=== PATIENT | male | born 1935 | race Caucasian/White ===

== ENCOUNTER 2018-02-25 08:35 | Inpatient (IN) | payer MEDICARE, SELFPAY ==
[2018-02-25] VITALS (17 sets, daily range): BP systolic 126–199; BP diastolic 63–89; PULSE 18–87; RESP 16–93; TEMP 36.6–37.2; O2SAT 93–98; BMI 29.5; BMI 27.8
--- NOTE | 2018-02-25 08:49 | CT_ITS ---
STUDY: CT BRAIN WITHOUT CONTRAST REASON FOR EXAM: Male, 82 years old. Left facial droop. Slurred speech. Left-sided weakness. RADIATION DOSAGE (If Supplied By Facility): CTDIvol = ( 44.99 ) mGy, DLP = ( 745.49 ) mGycm TECHNIQUE: Transaxial CT imaging of the brain was performed without administration of intravenous contrast material. Individualized dose optimization techniques were used for this CT. COMPARISON: None. FINDINGS: Normal soft tissue structures. Normal calvarium. There is mild cerebral atrophy with widening of the extra-axial spaces and ventricular dilatation. Normal white matter tracts of the cerebral hemispheres. There are small punctate calcifications of the basal ganglia which are seen in the aging brain as a normal variant. Normal brainstem. Normal cerebellum. There is no intracranial hemorrhage. There are no findings of an acute ischemic infarction. Mucosal thickening of the right maxillary sinus. CT/Brain/Head without Contrast IMPRESSION: Chronic involutional changes of the brain. N.B. : The above information has been verbally conveyed by Jalen Rodriguez MD to Mark Anthony Gambino on 02/25/2018 09:03:51 (ET). Electronically Signed: Jalen Rodriguez MD at 9:04 EDT Tel [phone], Service support ,
--- NOTE | 2018-02-25 08:49 | RAD_ITS ---
STUDY: X-RAY CHEST REASON FOR EXAM: Male, 82 years old. CVA. Left facial droop. Slurred speech. TECHNIQUE: Single AP portable view of the chest. COMPARISON: Comparison is made with prior study dated January 14, 2015. FINDINGS: EKG electrodes are seen. The lungs are clear and expanded. There is no demonstrated pleural abnormality. There is mild cardiac enlargement. Normal mediastinum and binu. Normal visualized pulmonary arteries. There is atherosclerotic calcification of the aortic arch with tortuosity. There are diffuse degenerative changes of the visualized thoracic spine. Normal visualized ribs, clavicles, and shoulders. There is no demonstrated abnormality of the visualized soft tissue structures of the upper abdomen. RAD/Chest 1 View IMPRESSION: Mild cardiomegaly. The lungs are clear. Electronically Signed: Jalen Rodriguez MD at 9:12 EDT Tel [phone], Service support ,
--- NOTE | 2018-02-25 08:49 | CT_ITS ---
STUDY: CTA OF THE BRAIN REASON FOR EXAM: Male, 82 years old. Slurred speech. Left-sided weakness. RADIATION DOSAGE (If Supplied By Facility): CTDIvol = ( 21.96 ) mGy, DLP = ( 751.91 ) mGycm TECHNIQUE: CT angiography was performed with a multi-detector CT scanner. Data acquisition was obtained from the skull base through the vertex following intravenous administration of 100 ml of Isovue-370. MIP images were reconstructed from the axial data set. Post-processing of the angiographic images was performed, with multiplanar reformation and 3D reconstruction. Individualized dose optimization techniques were used for this CT. COMPARISON: None. FINDINGS: Normal bilateral petrous carotid arteries. There is calcified plaque formation of the right cavernous carotid artery, without a cross-sectional luminal stenosis. There is calcified plaque formation of the left cavernous carotid artery, without a cross-sectional luminal stenosis. Normal right A1 segments of the anterior cerebral artery. Normal left A1 segments of the anterior cerebral artery. Normal intact anterior communicating artery (ACOM). Normal bilateral A2 segments of the anterior cerebral arteries. There is nonvisualization of the M2 segment of the right cerebral artery. Thrombus should be ruled out. Normal left M1 and M2 segments of the middle cerebral arteries, with a normal M1 bifurcation. There is a persistent origin of the right posterior cerebral artery with absence of the posterior communicating artery (PCOM). Normal left posterior communicating artery (PCOM). Normal bilateral vertebral arteries. Normal basilar artery with a normal basilar bifurcation. The visualized bilateral superior cerebellar (SCA) arteries are normal. Normal bilateral P1, P2 and visualized P3 segments of the posterior cerebral arteries. There is no demonstrated aneurysm of the [place]. There is no demonstrated abnormality of the visualized brain. CT/CTA Head W/WO Contrast IMPRESSION: Nonvisualization of the M2 segment of the right middle cerebral artery. Occlusion should be ruled out. Electronically Signed: Jalen Rodriguez MD at 9:33 EDT Tel [phone], Service support ,
--- NOTE | 2018-02-25 08:49 | EKG12_ITS ---
Test Reason : STROKE Blood Pressure : / mmHG Vent. Rate : 068 BPM Atrial Rate : 068 BPM P-R Int : 198 ms QRS Dur : 082 ms QT Int : 424 ms P-R-T Axes : 010 -02 052 degrees QTc Int : 450 ms Normal sinus rhythm Inferior infarct , age undetermined Abnormal ECG Confirmed by BERNABE BRAUN, TONYA ([id number]), dictionary editor ALEAH LEUNG ([id number]) on 02/26/2018 2:43:40 PM Referred By: MARILYNN Confirmed By:TONYA KIDD MD
--- NOTE | 2018-02-25 08:49 | CT_ITS ---
STUDY: CTA NECK WITH CONTRAST REASON FOR EXAM: Male, 82 years old. CVA. RADIATION DOSAGE (If Supplied By Facility): CTDIvol = ( 21.96 ) mGy, DLP = ( 751.91 ) mGycm TECHNIQUE: CT angiography with multi-detector data acquisition was performed from the aortic arch to the skull base following intravenous administration of 100CC ml of Isovue 370 contrast. MIP images were reconstructed from the axial data set. Post-processing of the angiographic images was performed, with multiplanar reformation and 3D reconstruction. Individualized dose optimization techniques were used for this CT. COMPARISON: None. FINDINGS: AORTIC ARCH: There is atherosclerotic calcific plaque formation of the aortic arch and great vessels arising from the aortic arch, without a hemodynamically significant stenosis. There is a bovine origin of the great vessels with a common origin of the brachiocephalic and left common carotid artery. Normal origin of the left subclavian artery. RIGHT CAROTID ARTERIES: Normal right common carotid artery (CCA). Normal right common carotid bulb. There is moderate atherosclerotic plaque formation of the origin of the right internal carotid artery with an estimated stenosis of 50-69% stenosis. Normal visualized cervical portion of the right internal carotid artery. Normal origin of the right external carotid artery (ECA). LEFT CAROTID ARTERIES: Normal left common carotid artery (CCA). Normal left common carotid bulb. Surgical clips are seen in the region of the left carotid bifurcation. This most likely secondary to prior endarterectomy. Normal visualized cervical portion of the left internal carotid artery. Normal origin of the left external carotid artery (ECA). VERTEBRAL ARTERIES: Normal bilateral vertebral arteries. Multilevel degenerative changes of the cervical spine. CT/CTA Neck W/WO Contrast IMPRESSION: Atherosclerotic plaque at the origin of the right internal carotid artery causing between 50 and 69% stenosis. Findings suggestive of a prior endarterectomy of the left internal carotid artery. Electronically Signed: Jalen Rodriguez MD at 9:28 EDT Tel [phone], Service support ,
[2018-02-25 09:16] LABS: Absolute Lymphocyte Count 0.71 X10^3/ul (0.83-4.51); Absolute Neutrophil Count 7.3 X10^3/uL (2.0-7.7); Basophil# 0.01 X10^3/uL; Basophil% 0.1 % (0-1); Eosinophil# 0.47 X10^3/uL; Hematocrit 42.5 % (40-54); Hemoglobin 14.1 g/dl (13.0-16.5); Lymphocyte # 0.71 X10^3/ul (4.0); Lymphocyte % 7.5 % (19-41); Mean Corp Hgb Conc 33.2 g/gl (32-36); Mean Corpuscular Hgb 33.8 pg (27.0-32.0); Mean Corpuscular Volume 101.9 fL (80-94); Monocyte# 0.93 X10^3/uL; Monocyte% 9.8 % (0-10); Neutrophil # 7.33 X10^3/uL (2.7-7.7); Neutrophil % 77.4 % (47-70); Platelet Count 206 K/mm3 (150-450); RBC Distribution Width CV 14.3 % (11.6-14.6); RBC Distribution Width SD 52.5 fl (35.1-43.9); Red Blood Count 4.17 M/mm3 (4.6-6.2); White Blood Count 9.5 K/mm3 (4.4-11.0)
[2018-02-25 09:18] LABS: POSITIVE COUNT NO; POSITIVE DIFFERENTIAL NO; POSITIVE MORPHOLOGY NO
[2018-02-25 09:19] LABS: International Normalized Ratio 1.1; Prothrombin Time (Protime)PT. 14.1 SECONDS (11.7-14.9)
[2018-02-25 09:20] LABS: Partial Thromboplast Time 28.1 Seconds (24.1-36.2)
[2018-02-25 09:30] LABS: Anion Gap 8 (5-15); BUN 20 mg/dL (7-18); BUN/Creat Ratio 16.5 RATIO (10-20); Calcium,Total 9.3 mg/dL (8.5-10.1); Chloride 107 mmol/L (98-107); Creatinine, Serum 1.21 mg/dL (0.70-1.30); EST Glomerular Filtration Rate 61 mL/min (>60); Est Glom Filt Rate - Afr Amer 74 mL/min (>60); Estimated Creatinine Clearance 44.75 ml/min; Glucose 122 mg/dL (74-106); Potassium 3.7 mmol/L (3.5-5.1); Sodium Level 142 mmol/L (136-145)
[2018-02-25 09:31] LABS: Bedside Glucose 114 mg/dL (70-110)
[2018-02-25 09:34] LABS: CPK Total, Creatine Kinase 371 U/L (39-308)
--- NOTE | 2018-02-25 09:51 | NURSING ---
DR ORTIZ FOR DR SUBRAMANIAN
--- NOTE | 2018-02-25 10:03 | ED.DCSUM_ITS ---
- ER Visit Summary Date of Service: 02/25/18 Chief Complaint: Weakness and fall History of Present Illness: The patient is a 57 M who presents with weakness and a fall. He was last seen normal about 11:30 PM yesterday. He fell out of bed. He believes this was about at midnight. He was found by family member this morning. He had been unable to get up on his own. He believes that he was down for several hours. He denies any injuries or pain. EMS noted left-sided weakness and slurred speech. The patient otherwise denies recent illness such as fever chest pain shortness of breath nausea vomiting diarrhea or headache. No prior history of stroke. He does have a history of prior carotid endarter ectomy. Physical Examination: Afebrile vitals unremarkable There is some contusion and abrasion to the left forehead and left upper lateral arm but no tenderness Initial NIH stroke scale is 6, 2 for facial palsy, 2 for left arm, 1 for left leg, 1 for dysarthria Heart is regular rate and rhythm Lungs are clear Abdomen soft Alert and oriented to month and day, person, place. Normal sensation No extremity tenderness no pain with passive range of motion Test Results: EKG shows sinus rhythm at a rate of 68. CBC BMP coagulation studies unremarkable. Troponin 0.046. CPK 371. CT of the head showed chronic changes. CTA of the head neck shows nonvisualization of the M2 right MCA. These images were reviewed by Dr. Hernandez, the neurologist who noted M1 occlusion with early ischemic changes. Chest x-ray shows mild cardiomegaly, no acute process. Emergency Department Course and Treatment: Stroke team was activated prehospital based on the patient's positive [place] stroke scale. Dr. Hernandez did evaluate the patient here in the emergency department. He is not a TPA candidate. He also spoke to [facility] and he was not a candidate for further intervention so will be kept here for further evaluation and management. Patient discussed with the hospitalist and admitted. Treatment Plan: [] Disposition: Admit Impression: Stroke This note was generated with [employer] dictation software. It may contain incorrect words, spelling, and punctuation that were not noted in review of the chart prior to signing ED Disposition - Plan for ED Patient: Chief Complaint: Neuro S/Sx Referrals: Derek Singh Chi, MD [Primary Care Provider] -
--- NOTE | 2018-02-25 10:08 | NURSING ---
122 CVA MARIA ISABELTSONIS
--- NOTE | 2018-02-25 10:36 | MRI_ITS ---
STUDY: MRI BRAIN WITHOUT CONTRAST REASON FOR EXAM: Male, 82 years old. cva, L facial droop, L arm weakness. TECHNIQUE: Standardized multiplanar fat and water weighted pulse sequences were obtained. COMPARISON: None. FINDINGS: There is mild cerebral atrophy with widening of the extra-axial spaces and ventricular dilatation. There are a limited number of small white matter hyperintensities, distributed throughout the deep white matter tracts of the cerebral hemispheres, consistent with mild chronic white matter ischemic changes. There is restricted diffusion involving the right insula and rodríguez radiata with drop of signal on ADC map, consistent with acute infarction. Normal bilateral basal ganglia. Normal thalami. There is no extra-axial fluid accumulation. Normal flow voids within the major intracranial circulation suggesting patency by spin echo criteria. Normal sella turcica, pituitary gland, infundibular stalk, optic chiasm and hypothalamus. Normal tectal plate and pineal gland. Normal midbrain, jorge and medulla. Normal cerebellum. Normal basal cisterns. There is mild paranasal sinus disease MRI/Brain without Contrast IMPRESSION: Acute right MCA infarct. N.B. : The above information has been verbally conveyed by Thomas Dougherty MD to Nurse Parul Covarrubias RN, on 02/25/2018 14:14:29 (ET). Electronically Signed: Thomas Dougherty MD at 13:26 EDT Tel , Service support ,
--- NOTE | 2018-02-25 10:36 | ECHOD_ITS ---
Reason For Study: TIA/CVA Procedure This was a 2D Doppler, Color Flow transthoracic echocardiogram. The study was technically difficult. Due to body habitus. Exam performed portable in patient room. Left Ventricle Normal LV size. Mild concentric left ventricular hypertrophy. Left ventricular systolic function is normal. The estimated ejection fraction is 60 %. Transmitral and pulmonary venous doppler flow suggestive of impaired relaxation of left ventricle. Transmitral diastolic flow velocities suggest mild (stage 1) diastolic dysfunction (reversed pattern). No regional wall motion abnormalities noted. Right Ventricle Normal RV size. Normal systolic function. Atria The left atrium is mildly enlarged. Normal right atrium. Bubble contrast study negative for right to left interatrial shunt. Mitral Valve Normal mitral valve. Tricuspid Valve Normal tricuspid valve. Mild (1+) tricuspid valve insufficiency. Pulmonary artery systolic pressure is 30 mmHg. Aortic Valve The aortic valve is not well visualized. Pulmonic Valve Normal pulmonic valve. Great Vessels Normal aortic root. The pulmonary artery is normal size. Normal inferior vena cava. Pericardium/Pleural No pericardial effusion. Medication Performed a rapid injection of agitated mix of 9 cc saline and 1cc air to assess for atrial septal defect. MMode/2D Measurements & Calculations LVIDd: 5.1 cm IVSd: 1.3 cm Ao root diam: 3.6 cm LVIDs: 3.4 cm LVPWd: 1.2 cm LA dimension: 3.8 cm RVDd: 2.9 cm FS: 32.2 % LAV(MOD-bp): 85.3 ml LAV(MOD-bp) Indexed: 42.3 ml/m2 LA A4 area: 25.0 cm2 RA A4 area: 21.4 cm2 LAV(MOD-sp2): 79.8 ml LAV(MOD-sp4): 79.3 ml Doppler Measurements & Calculations MV E max kenan: 66.9 cm/sec Lat Peak E' Kenan: 8.3 cm/sec Med Peak E' Kenan: 6.3 cm/sec MV A max kenan: 87.5 cm/sec E/E' lat: 8.1 E/E' med: 10.6 MV E/A: 0.76 Ao V2 max: 174.1 cm/sec LV V1 max: 160.1 cm/sec PA V2 max: 89.4 cm/sec Ao max P.1 mmHg LV V1 max P.7 mmHg TR max kenan: 258.8 cm/sec TR max P.8 mmHg Interpretation Summary Normal LV size. Mild concentric left ventricular hypertrophy. Left ventricular systolic function is normal. The estimated ejection fraction is 60 %. Transmitral and pulmonary venous doppler flow suggestive of impaired relaxation of left ventricle Transmitral diastolic flow velocities suggest mild (stage 1) diastolic dysfunction (reversed pattern). Ordering Physician: Og Jones Referring Physician: Derek Singh Chi Performed By: Eveline Montaño RDCS, RVT
[2018-02-25] MEDS: 0.9% Normal Saline 1,000 ML 100 ML IV ×2 (10:58→22:16)
--- NOTE | 2018-02-25 11:04 | PCM.CONS.GEN ---
Reason for Consult Date of Consultation: 02/25/18 Reason for Consultation: Stroke team History of Present Illness: The patient is a 82 year old right-handed white male with a past medical history of hypertension, hyperlipidemia, and tobacco use, last known well at 11:30 PM last night presented to the emergency department after his family discovered that he had left-sided weakness this morning. Stroke team was called. He was outside of the window for TPA. Upon my arrival at the bedside at approximately 9 AM, his daughter was present. The patient was awake and alert and able to follow all commands and answer questions. We discussed possible transfer for neuro intervention however I discussed this with the on-call neurologist at [facility] who felt that due to his age, his NIH stroke score which at this point is 5, and proximally 10-1/2 hours since last known well he was outside of the window for any intervention. This was discussed with the family and they agree. He does not have a history of atrial fibrillation or heart disease and he is not on any anticoagulants. Denies any pain or headache. 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 (Chronic) huc ob current use of therapeutic drug (Chronic) HTN (hypertension), benign (Chronic) Medical History: Medical History (Last Reviewed 02/25/18 @ 11:10 by Timothy Hernandez MD) CAD (coronary artery disease) (Chronic) I25.10 Carotid arterial disease (Chronic) I77.9 Hyperlipidemia (Chronic) E78.5 senior living current use of therapeutic drug (Chronic) Z79.899 HTN (hypertension), benign (Chronic) I10 Carotid stenosis I65.29 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 Allergies No Known Allergies Allergy (Verified 02/25/18 08:36) Home Medications: Ambulatory Orders Medication Instructions Recorded aspirin 81 mg tablet,delayed 81 mg PO DAILY 0 Days 04/30/17 release metoprolol tartrate 50 mg tablet 50 mg PO BID #180 tab 02/11/18 simvastatin 20 mg tablet 20 mg PO QAM #90 tab 02/11/18 Surgical History: Surgical History (Last Reviewed 02/25/18 @ 11:10 by Timothy Hernandez MD) H/O carotid endarterectomy Onset Date: ~07/2010 Z98.890 History of appendectomy Z90.49 History of bilateral knee replacement Onset Date: ~2007 Z96.653 Hx of tonsillectomy Z90.89 Smoking Status: Current some day smoker Tobacco Use: Cigarettes, Cigars Alcohol: None Drugs: None - *Family History Maternal Family History: Family History (Last Reviewed 05/01/17 @ 10:05 by Shade Mcmanus MD) Other CAD (coronary artery disease) Heart disease Hypertension History Items: No pertinent history Review of Systems Constitutional: Denies: Chills, Fever, Weight Change HEENT: Denies: Head Aches, Sinus Congestion, Sinus Drainage Cardiovascular: Denies: Chest Pain, Palpitations Respiratory: Denies: Cough, Shortness of breath at rest, Sputum production Gastrointestinal: Denies: Abdominal Pain, Nausea, Vomiting Genitourinary: Denies: Dysuria Musculoskeletal: Denies: Joint Pain, Joint Tenderness Skin: Denies: Rash, Wounds Neurological: Reports: Change in Speech, Slurred speech, Focal weakness. Denies: Numbness, Tingling Psychiatric: Denies: Anxiety, Depression, Homicidal Ideations, Suicidal Ideations Hematologic/ Lymphatic: Denies: Easy Bruising, Easy Bleeding Objective: On examination he is awake, alert and oriented There is no visual field cut There is no extinction or neglect There is a mild to moderate left central 7 There is no aphasia but there is moderate dysarthria There is left arm and leg drift but he does not touch the bed. Right side is normal. Sensation is intact to double stimulation Is no ataxia out of proportion to weakness NIH stroke score is 5 - Physical Exam Vital Signs Temp Pulse Resp BP Pulse Ox 36.7 C 59 L 16 172/74 H 96 02/25/18 11:00 02/25/18 11:00 02/25/18 11:00 02/25/18 11:00 02/25/18 11:00 Oxygen Flow Rate (L/min) 2 Oxygen Delivery Method Nasal Cannula Weight: 83 kg Body Mass Index (BMI) 27.8 Finger Stick Blood Glucose 114 Laboratory Tests Past 24 Hrs 02/25/18 02/25/18 02/25/18 08:52 08:52 08:52 WBC 9.5 RBC 4.17 L Hgb 14.1 Hct 42.5 MCV 101.9 H MCH 33.8 H MCHC 33.2 RDW 14.3 RDW Differential 52.5 H Plt Count 206 MPV 10.0 Immature Gran % (Auto) 0.200 Neut % (Auto) 77.4 H Lymph % (Auto) 7.5 L [place] % (Auto) 9.8 Eos % (Auto) 5.0 Baso % (Auto) 0.1 Absolute Neuts (auto) 7.3 Absolute Lymphs (auto) 0.71 L Total Counted Not Reportable PT 14.1 INR 1.1 APTT 28.1 Sodium 142 Potassium 3.7 Chloride 107 Carbon Dioxide 27.0 Anion Gap 8 BUN 20 H Creatinine 1.21 Estim Creat Clear Calc 44.75 Est GFR (MDRD) Af Amer 74 Est GFR (MDRD) Non-Af 61 BUN/Creatinine Ratio 16.5 Glucose 122 H Calcium 9.3 Total Creatine Kinase Troponin I 0.046 H 02/25/18 08:52 WBC RBC Hgb Hct MCV MCH MCHC RDW RDW Differential Plt Count MPV Immature Gran % (Auto) Neut % (Auto) Lymph % (Auto) [place] % (Auto) Eos % (Auto) Baso % (Auto) Absolute Neuts (auto) Absolute Lymphs (auto) Total Counted PT INR APTT Sodium Potassium Chloride Carbon Dioxide Anion Gap BUN Creatinine Estim Creat Clear Calc Est GFR (MDRD) Af Amer Est GFR (MDRD) Non-Af BUN/Creatinine Ratio Glucose Calcium Total Creatine Kinase 371 H Troponin I POC Glucose 02/25/18 09:18 POC Glucose 114 H I reviewed the CT and CTA of the head and neck. There is possible early ischemic changes in her right MCA distribution and I think there is a right M1 cutoff. Assessment/Plan Acute right MCA distribution ischemic stroke. He is outside of the window for TPA and neuro intervention. This was discussed with the on-call neuro interventional list at [facility]. This is also discussed with the family and they agree to keep the patient here in [place], continue conservative treatment including the following: PT/OT/speech therapy N.p.o. until cleared by speech MRI of the brain Echocardiogram Consider rehab: Discussed with patient and family Telemetry monitoring Continue statin therapy although changes to high dose Permissive hypertension, treat systolic if over 200 Add Plavix, continue aspirin therapy
--- NOTE | 2018-02-25 11:09 | CON.PCM_ITS ---
Reason for Consult Date of Consultation: 02/25/18 Reason for Consultation: Stroke team History of Present Illness: The patient is a 82 year old right-handed white male with a past medical history of hypertension, hyperlipidemia, and tobacco use, last known well at 11:30 PM last night presented to the emergency department after his family discovered that he had left-sided weakness this morning. Stroke team was called. He was outside of the window for TPA. Upon my arrival at the bedside at approximately 9 AM, his daughter was present. The patient was awake and alert and able to follow all commands and answer questions. We discussed possible transfer for neuro intervention however I discussed this with the on-call neurologist at [facility] who felt that due to his age, his NIH stroke score which at this point is 5, and proximally 10-1/2 hours since last known well he was outside of the window for any intervention. This was discussed with the family and they agree. He does not have a history of atrial fibrillation or heart disease and he is not on any anticoagulants. Denies any pain or headache. 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) Z79.899 HTN (hypertension), benign (Chronic) I10 Carotid stenosis I65.29 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 Allergies No Known Allergies Allergy (Verified 02/25/18 08:36) Home Medications: Ambulatory Orders Medication Instructions Recorded aspirin 81 mg tablet,delayed 81 mg PO DAILY 0 Days 04/30/17 release metoprolol tartrate 50 mg tablet 50 mg PO BID #180 tab 02/11/18 simvastatin 20 mg tablet 20 mg PO QAM #90 tab 02/11/18 Surgical History: Surgical History (Last Reviewed 02/25/18 @ 11:10 by Timothy Hernandez MD) H/O carotid endarterectomy Onset Date: ~07/2010 Z98.890 History of appendectomy Z90.49 History of bilateral knee replacement Onset Date: ~2007 Z96.653 Hx of tonsillectomy Z90.89 Smoking Status: Current some day smoker Tobacco Use: Cigarettes, Cigars Alcohol: None Drugs: None - *Family History Maternal Family History: Family History (Last Reviewed 05/01/17 @ 10:05 by Shade Mcmanus MD) Other CAD (coronary artery disease) Heart disease Hypertension History Items: No pertinent history Review of Systems Constitutional: Denies: Chills, Fever, Weight Change HEENT: Denies: Head Aches, Sinus Congestion, Sinus Drainage Cardiovascular: Denies: Chest Pain, Palpitations Respiratory: Denies: Cough, Shortness of breath at rest, Sputum production Gastrointestinal: Denies: Abdominal Pain, Nausea, Vomiting Genitourinary: Denies: Dysuria Musculoskeletal: Denies: Joint Pain, Joint Tenderness Skin: Denies: Rash, Wounds Neurological: Reports: Change in Speech, Slurred speech, Focal weakness. Denies: Numbness, Tingling Psychiatric: Denies: Anxiety, Depression, Homicidal Ideations, Suicidal Ideations Hematologic/ Lymphatic: Denies: Easy Bruising, Easy Bleeding Objective: On examination he is awake, alert and oriented There is no visual field cut There is no extinction or neglect There is a mild to moderate left central 7 There is no aphasia but there is moderate dysarthria There is left arm and leg drift but he does not touch the bed. Right side is normal. Sensation is intact to double stimulation Is no ataxia out of proportion to weakness NIH stroke score is 5 - Physical Exam Vital Signs Temp Pulse Resp BP Pulse Ox 36.7 C 59 L 16 172/74 H 96 02/25/18 11:00 02/25/18 11:00 02/25/18 11:00 02/25/18 11:00 02/25/18 11:00 Oxygen Flow Rate (L/min) 2 Oxygen Delivery Method Nasal Cannula Weight: 83 kg Body Mass Index (BMI) 27.8 Finger Stick Blood Glucose 114 Laboratory Tests Past 24 Hrs 02/25/18 02/25/18 02/25/18 08:52 08:52 08:52 WBC 9.5 RBC 4.17 L Hgb 14.1 Hct 42.5 MCV 101.9 H MCH 33.8 H MCHC 33.2 RDW 14.3 RDW Differential 52.5 H Plt Count 206 MPV 10.0 Immature Gran % (Auto) 0.200 Neut % (Auto) 77.4 H Lymph % (Auto) 7.5 L [place] % (Auto) 9.8 Eos % (Auto) 5.0 Baso % (Auto) 0.1 Absolute Neuts (auto) 7.3 Absolute Lymphs (auto) 0.71 L Total Counted Not Reportable PT 14.1 INR 1.1 APTT 28.1 Sodium 142 Potassium 3.7 Chloride 107 Carbon Dioxide 27.0 Anion Gap 8 BUN 20 H Creatinine 1.21 Estim Creat Clear Calc 44.75 Est GFR (MDRD) Af Amer 74 Est GFR (MDRD) Non-Af 61 BUN/Creatinine Ratio 16.5 Glucose 122 H Calcium 9.3 Total Creatine Kinase Troponin I 0.046 H 02/25/18 08:52 WBC RBC Hgb Hct MCV MCH MCHC RDW RDW Differential Plt Count MPV Immature Gran % (Auto) Neut % (Auto) Lymph % (Auto) [place] % (Auto) Eos % (Auto) Baso % (Auto) Absolute Neuts (auto) Absolute Lymphs (auto) Total Counted PT INR APTT Sodium Potassium Chloride Carbon Dioxide Anion Gap BUN Creatinine Estim Creat Clear Calc Est GFR (MDRD) Af Amer Est GFR (MDRD) Non-Af BUN/Creatinine Ratio Glucose Calcium Total Creatine Kinase 371 H Troponin I POC Glucose 02/25/18 09:18 POC Glucose 114 [address] I reviewed the CT and CTA of the head and neck. There is possible early ischemic changes in her right MCA distribution and I think there is a right M1 cutoff. Assessment/Plan Acute right MCA distribution ischemic stroke. He is outside of the window for TPA and neuro intervention. This was discussed with the on-call neuro interventional list at [facility]. This is also discussed with the family and they agree to keep the patient here in [place], continue conservative treatment including the following: * PT/OT/speech therapy * N.p.o. until cleared by speech * MRI of the brain * Echocardiogram * Consider rehab: Discussed with patient and family * Telemetry monitoring * Continue statin therapy although changes to high dose * Permissive hypertension, treat systolic if over 200 * Add Plavix, continue aspirin therapy
[2018-02-25] MEDS: Heparin Injection (Vial) 5,000 UNIT/ML VIAL 5000 UNIT SC ×2 (13:40→22:16)
[2018-02-25] MEDS: Ketorolac 15 MG/ML Vial IV (16:10)
--- NOTE | 2018-02-25 16:48 | PCM.HP.STD ---
Problem List (1) CAD (coronary artery disease) Status: Chronic Qualifiers: Coronary Disease-Associated Artery/Lesion type: [place] artery [place] vs. transplanted heart: [place] heart Associated angina: without angina Qualified Code(s): I25.10 - Atherosclerotic heart disease of [place] coronary artery without angina pectoris; I25.10 - Atherosclerotic heart disease of [place] coronary artery without angina pectoris; I25.10 - Atherosclerotic heart disease of [place] coronary artery without angina pectoris (2) Carotid arterial disease Status: Chronic (3) Hyperlipidemia Status: Chronic Qualifiers: Hyperlipidemia type: pure hypercholesterolemia Qualified Code(s): E78.00 - Pure hypercholesterolemia, unspecified; E78.00 - Pure hypercholesterolemia, unspecified; E78.00 - Pure hypercholesterolemia, unspecified; E78.0 - Pure hypercholesterolemia (4) HTN (hypertension), benign Status: Chronic (5) CVA (cerebral vascular accident) Status: Acute History of Present Illness Date of Admission: 02/25/18 Chief Complaint: Weakness and fall The patient is a 82 year old M with a PMH as above presents after being found down by his daughter this morning. Per him and the family, he was last seen to be normal last night around 2330 when he went to bed. He states that he thinks he got up to go to the bathroom and then the next thing he knew, he was on the ground and could not get up. He denies LOC or head traum but is unsure of how long he was on the floor for. He daughter, who lives with him found him this morning when she got up to go to the bathroom. She and her tried to get him up but could not and when they noticed him slurring his speech, they decided to call EMS. on arrival to the ER, he was evaluated and found to be out of the tPA window, MRI and CTA demonstrates a right MCA territory stroke and a R ICA stenosis of 50 to 69%, his left ICA appears to have been repaired. 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) Z79.899 HTN (hypertension), benign (Chronic) I10 Carotid stenosis I65.29 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 Allergies No Known Allergies Allergy (Verified 02/25/18 08:36) Home Medications: Ambulatory Orders Medication Instructions Recorded aspirin 81 mg tablet,delayed 81 mg PO DAILY 0 Days 04/30/17 release metoprolol tartrate 50 mg tablet 50 mg PO BID #180 tab 02/11/18 simvastatin 20 mg tablet 20 mg PO QAM #90 tab 02/11/18 Surgical History: Surgical History (Last Reviewed 02/25/18 @ 11:10 by Timohty Hernandez MD) H/O carotid endarterectomy Onset Date: ~07/2010 Z98.890 History of appendectomy Z90.49 History of bilateral knee replacement Onset Date: ~2007 Z96.653 Hx of tonsillectomy Z90.89 Smoking Status: Current some day smoker Tobacco Use: Cigarettes, Cigars Alcohol: None Drugs: None - *Family History Maternal Family History: Family History (Last Reviewed 05/01/17 @ 10:05 by Shade Mcmanus MD) Other CAD (coronary artery disease) Heart disease Hypertension History Items: No pertinent history Review of Systems Constitutional: Reports: Weakness. Denies: Chills, Fever, Weight Change Eyes: Denies: Blurred vision, Double vision HEENT: Reports: Head Aches. Denies: Sinus Congestion, Sinus Drainage Cardiovascular: Denies: Chest Pain, Palpitations Respiratory: Denies: Cough, Shortness of breath at rest, Sputum production Gastrointestinal: Denies: Abdominal Pain, Nausea, Vomiting Genitourinary: Denies: Dysuria Musculoskeletal: Denies: Joint Pain, Joint Tenderness Skin: Denies: Rash, Wounds Neurological: Reports: Slurred speech, Focal weakness, Headaches. Denies: Numbness, Tingling Psychiatric: Denies: Anxiety, Depression Hematologic/ Lymphatic: Denies: Easy Bruising, Easy Bleeding VTE Information - Inpt Only VTE Present on Admission: No Patient Problems: Active and Suspected Problems (Last Reviewed 02/25/18 @ 11:10 by Timothy Hernandez MD) CVA (cerebral vascular accident) (Acute) - Physical Exam General: Alert, Oriented x3, Cooperative, No apparent distress HEENT: Atraumatic, EOMI, Normocephalic Oral: Dry Mucosa Neck: Supple, No JVD Lungs: Clear to auscultation, Normal air movement, No rhonchi, No wheeze, No rales Cardiovascular: Regular rate, Regular Rhythm, Normal S1, Normal S2, No murmurs Abdomen: Soft, Non Tender, Non-Distended, No Hepato-splenomegaly Extremities: No edema, Capillary Refill Less than 3 Seconds Skin: No rashes, No breakdown Musculoskeletal: No Tenderness to Palpation of Joints or Extremities Neurological: Deep Tendon Reflexes 2+/4 and Symmetrical, Sensory exam intact to light touch and pain, - - LUE 3/5 with slight drift, dysarthric, left facial droop, left cranial nerve 11 is out, no visual field defect Psych/Mental Status: Normal Affect, Appropriate Vital Signs Temp Pulse Resp BP Pulse Ox 98.3 F 58 L 16 126/69 H 98 02/25/18 15:00 02/25/18 15:04 02/25/18 15:00 02/25/18 15:00 02/25/18 15:00 Oxygen Flow Rate (L/min) 2 Oxygen Delivery Method Room Air Weight: 182 lb 15.739 oz Body Mass Index (BMI) 27.8 Finger Stick Blood Glucose 114 Intake and Output for Last 24 Hours 02/23/18 02/24/18 02/25/18 23:59 23:59 23:59 Intake Total 75 / 75 Balance 75 / 75 Laboratory Tests Past 24 Hrs 02/25/18 02/25/18 02/25/18 08:52 08:52 08:52 WBC 9.5 RBC 4.17 L Hgb 14.1 Hct 42.5 MCV 101.9 H MCH 33.8 H MCHC 33.2 RDW 14.3 RDW Differential 52.5 H Plt Count 206 MPV 10.0 Immature Gran % (Auto) 0.200 Neut % (Auto) 77.4 H Lymph % (Auto) 7.5 L [place] % (Auto) 9.8 Eos % (Auto) 5.0 Baso % (Auto) 0.1 Absolute Neuts (auto) 7.3 Absolute Lymphs (auto) 0.71 L Total Counted Not Reportable PT 14.1 INR 1.1 APTT 28.1 Sodium 142 Potassium 3.7 Chloride 107 Carbon Dioxide 27.0 Anion Gap 8 BUN 20 H Creatinine 1.21 Estim Creat Clear Calc 44.75 Est GFR (MDRD) Af Amer 74 Est GFR (MDRD) Non-Af 61 BUN/Creatinine Ratio 16.5 Glucose 122 H Calcium 9.3 Total Creatine Kinase Troponin I 0.046 H 02/25/18 08:52 WBC RBC Hgb Hct MCV MCH MCHC RDW RDW Differential Plt Count MPV Immature Gran % (Auto) Neut % (Auto) Lymph % (Auto) [place] % (Auto) Eos % (Auto) Baso % (Auto) Absolute Neuts (auto) Absolute Lymphs (auto) Total Counted PT INR APTT Sodium Potassium Chloride Carbon Dioxide Anion Gap BUN Creatinine Estim Creat Clear Calc Est GFR (MDRD) Af Amer Est GFR (MDRD) Non-Af BUN/Creatinine Ratio Glucose Calcium Total Creatine Kinase 371 H Troponin I POC Glucose 02/25/18 09:18 POC Glucose 114 H Assessment/Plan All Active Problems (Last Reviewed 02/25/18 @ 11:10 by Timothy Hernandez MD) CVA (cerebral vascular accident) (Acute) 1. R MCA CVA/HLD/HTN/CAD - Presenting with dysarthria, loss of L CNXI, LUE weakness - He is on aspirin, will add plavix, then will transition to plavix alone in 3 weeks - Increase statin from 20 mg to 40 mg as he is 82 yo and there is no evidence to suggest 80 mg is beneficial in people older than 75 - PT/OT and speech eval, he will need therapy after discharge - C/s to neuro, appreciate recs - echo pending - Permissive HTN, hold the metoprolol 2. rhabdomyolysis - total CK is elevated - renal function is Ok at the moment - c/w IVF hydration and monitor renal function 3. Tobacco use - discussed at length that he needs to quit DVT: Heparin/SCDs Diet: NPO Code Visit Inpatient E&M: 86937 Init Hosp L3
--- NOTE | 2018-02-25 16:53 | HP.PCM_ITS ---
Problem List (1) CAD (coronary artery disease) Status: Chronic Qualifiers: Coronary Disease-Associated Artery/Lesion type: [place] artery [place] vs. transplanted heart: [place] heart Associated angina: without angina Qualified Code(s): I25.10 - Atherosclerotic heart disease of [place] coronary artery without angina pectoris; I25.10 - Atherosclerotic heart disease of [place] coronary artery without angina pectoris; I25.10 - Atherosclerotic heart disease of [place] coronary artery without angina pectoris (2) Carotid arterial disease Status: Chronic (3) Hyperlipidemia Status: Chronic Qualifiers: Hyperlipidemia type: pure hypercholesterolemia Qualified Code(s): E78.00 - Pure hypercholesterolemia, unspecified; E78.00 - Pure hypercholesterolemia, unspecified; E78.00 - Pure hypercholesterolemia, unspecified; E78.0 - Pure hypercholesterolemia (4) HTN (hypertension), benign Status: Chronic (5) CVA (cerebral vascular accident) Status: Acute History of Present Illness Date of Admission: 02/25/18 Chief Complaint: Weakness and fall The patient is a 82 year old M with a PMH as above presents after being found down by his daughter this morning. Per him and the family, he was last seen to be normal last night around 2330 when he went to bed. He states that he thinks he got up to go to the bathroom and then the next thing he knew, he was on the ground and could not get up. He denies LOC or head traum but is unsure of how long he was on the floor for. He daughter, who lives with him found him this morning when she got up to go to the bathroom. She and her tried to get him up but could not and when they noticed him slurring his speech, they decided to call EMS. on arrival to the ER, he was evaluated and found to be out of the tPA window, MRI and CTA demonstrates a right MCA territory stroke and a R ICA stenosis of 50 to 69%, his left ICA appears to have been repaired. 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 HTN (hypertension), benign (Chronic) I10 Carotid stenosis I65.29 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 Allergies No Known Allergies Allergy (Verified 02/25/18 08:36) Home Medications: Ambulatory Orders Medication Instructions Recorded aspirin 81 mg tablet,delayed 81 mg PO DAILY 0 Days 04/30/17 release metoprolol tartrate 50 mg tablet 50 mg PO BID #180 tab 02/11/18 simvastatin 20 mg tablet 20 mg PO QAM #90 tab 02/11/18 Surgical History: Surgical History (Last Reviewed 02/25/18 @ 11:10 by Timothy Hernandez MD) H/O carotid endarterectomy Onset Date: ~07/2010 Z98.890 History of appendectomy Z90.49 History of bilateral knee replacement Onset Date: ~2007 Z96.653 Hx of tonsillectomy Z90.89 Smoking Status: Current some day smoker Tobacco Use: Cigarettes, Cigars Alcohol: None Drugs: None - *Family History Maternal Family History: Family History (Last Reviewed 05/01/17 @ 10:05 by Shade Mcmanus MD) Other CAD (coronary artery disease) Heart disease Hypertension History Items: No pertinent history Review of Systems Constitutional: Reports: Weakness. Denies: Chills, Fever, Weight Change Eyes: Denies: Blurred vision, Double vision HEENT: Reports: Head Aches. Denies: Sinus Congestion, Sinus Drainage Cardiovascular: Denies: Chest Pain, Palpitations Respiratory: Denies: Cough, Shortness of breath at rest, Sputum production Gastrointestinal: Denies: Abdominal Pain, Nausea, Vomiting Genitourinary: Denies: Dysuria Musculoskeletal: Denies: Joint Pain, Joint Tenderness Skin: Denies: Rash, Wounds Neurological: Reports: Slurred speech, Focal weakness, Headaches. Denies: Numbness, Tingling Psychiatric: Denies: Anxiety, Depression Hematologic/ Lymphatic: Denies: Easy Bruising, Easy Bleeding VTE Information - Inpt Only VTE Present on Admission: No Patient Problems: Active and Suspected Problems (Last Reviewed 02/25/18 @ 11:10 by iTmothy Hernandez MD) CVA (cerebral vascular accident) (Acute) - Physical Exam General: Alert, Oriented x3, Cooperative, No apparent distress HEENT: Atraumatic, EOMI, Normocephalic Oral: Dry Mucosa Neck: Supple, No JVD Lungs: Clear to auscultation, Normal air movement, No rhonchi, No wheeze, No rales Cardiovascular: Regular rate, Regular Rhythm, Normal S1, Normal S2, No murmurs Abdomen: Soft, Non Tender, Non-Distended, No Hepato-splenomegaly Extremities: No edema, Capillary Refill Less than 3 Seconds Skin: No rashes, No breakdown Musculoskeletal: No Tenderness to Palpation of Joints or Extremities Neurological: Deep Tendon Reflexes 2+/4 and Symmetrical, Sensory exam intact to light touch and pain, - - LUE 3/5 with slight drift, dysarthric, left facial droop, left cranial nerve 11 is out, no visual field defect Psych/Mental Status: Normal Affect, Appropriate Vital Signs Temp Pulse Resp BP Pulse Ox 98.3 F 58 L 16 126/69 H 98 02/25/18 15:00 02/25/18 15:04 02/25/18 15:00 02/25/18 15:00 02/25/18 15:00 Oxygen Flow Rate (L/min) 2 Oxygen Delivery Method Room Air Weight: 182 lb 15.739 oz Body Mass Index (BMI) 27.8 Finger Stick Blood Glucose 114 Intake and Output for Last 24 Hours 02/23/18 02/24/18 02/25/18 23:59 23:59 23:59 Intake Total 75 / 75 Balance 75 / 75 Laboratory Tests Past 24 Hrs 02/25/18 02/25/18 02/25/18 08:52 08:52 08:52 WBC 9.5 RBC 4.17 L Hgb 14.1 Hct 42.5 MCV 101.9 H MCH 33.8 H MCHC 33.2 RDW 14.3 RDW Differential 52.5 H Plt Count 206 MPV 10.0 Immature Gran % (Auto) 0.200 Neut % (Auto) 77.4 H Lymph % (Auto) 7.5 L [place] % (Auto) 9.8 Eos % (Auto) 5.0 Baso % (Auto) 0.1 Absolute Neuts (auto) 7.3 Absolute Lymphs (auto) 0.71 L Total Counted Not Reportable PT 14.1 INR 1.1 APTT 28.1 Sodium 142 Potassium 3.7 Chloride 107 Carbon Dioxide 27.0 Anion Gap 8 BUN 20 H Creatinine 1.21 Estim Creat Clear Calc 44.75 Est GFR (MDRD) Af Amer 74 Est GFR (MDRD) Non-Af 61 BUN/Creatinine Ratio 16.5 Glucose 122 H Calcium 9.3 Total Creatine Kinase Troponin I 0.046 H 02/25/18 08:52 WBC RBC Hgb Hct MCV MCH MCHC RDW RDW Differential Plt Count MPV Immature Gran % (Auto) Neut % (Auto) Lymph % (Auto) [place] % (Auto) Eos % (Auto) Baso % (Auto) Absolute Neuts (auto) Absolute Lymphs (auto) Total Counted PT INR APTT Sodium Potassium Chloride Carbon Dioxide Anion Gap BUN Creatinine Estim Creat Clear Calc Est GFR (MDRD) Af Amer Est GFR (MDRD) Non-Af BUN/Creatinine Ratio Glucose Calcium Total Creatine Kinase 371 H Troponin I POC Glucose 02/25/18 09:18 POC Glucose 114 H Assessment/Plan All Active Problems (Last Reviewed 02/25/18 @ 11:10 by Timothy Hernandez MD) CVA (cerebral vascular accident) (Acute) 1. R MCA CVA/HLD/HTN/CAD - Presenting with dysarthria, loss of L CNXI, LUE weakness - He is on aspirin, will add plavix, then will transition to plavix alone in 3 weeks - Increase statin from 20 mg to 40 mg as he is 82 yo and there is no evidence to suggest 80 mg is beneficial in people older than 75 - PT/OT and speech eval, he will need therapy after discharge - C/s to neuro, appreciate recs - echo pending - Permissive HTN, hold the metoprolol 2. rhabdomyolysis - total CK is elevated - renal function is Ok at the moment - c/w IVF hydration and monitor renal function 3. Tobacco use - discussed at length that he needs to quit DVT: Heparin/SCDs Diet: NPO Code Visit Inpatient E&M: 51206 Init Hosp L3
[2018-02-25] MEDS: Acetaminophen 650 MG Suppository RECTAL (23:16)
[2018-02-26] VITALS (26 sets, daily range): BP systolic 105–194; BP diastolic 37–89; PULSE 64–144; RESP 16–33; TEMP 36.7–37.3; O2SAT 91–97; BMI 27.8
[2018-02-26] MEDS: 0.9% NaCl Peripheral Flush Adult/Peds IV (02:16)
[2018-02-26] MEDS: Acetaminophen 650 MG Suppository RECTAL (05:39)
[2018-02-26 06:10] LABS: Absolute Lymphocyte Count 0.91 X10^3/ul (0.83-4.51); Absolute Neutrophil Count 4.1 X10^3/uL (2.0-7.7); Basophil# 0.01 X10^3/uL; Basophil% 0.2 % (0-1); Eosinophil# 0.31 X10^3/uL; Eosinophils% 5.4 % (0-5); Hematocrit 38.9 % (40-54); Lymphocyte # 0.91 X10^3/ul (4.0); Lymphocyte % 15.7 % (19-41); Mean Corp Hgb Conc 33.4 g/gl (32-36); Mean Corpuscular Hgb 34.6 pg (27.0-32.0); Mean Corpuscular Volume 103.5 fL (80-94); Mean Platelet Vol. 10.1 fl (6.2-12.0); Monocyte# 0.49 X10^3/uL; Monocyte% 8.5 % (0-10); Neutrophil # 4.05 X10^3/uL (2.7-7.7); Platelet Count 203 K/mm3 (150-450); RBC Distribution Width SD 51.4 fl (35.1-43.9); Red Blood Count 3.76 M/mm3 (4.6-6.2); White Blood Count 5.8 K/mm3 (4.4-11.0)
[2018-02-26 06:15] LABS: POSITIVE COUNT NO; POSITIVE DIFFERENTIAL NO; POSITIVE MORPHOLOGY NO
[2018-02-26 06:30] LABS: Anion Gap 7 (5-15); BUN 14 mg/dL (7-18); BUN/Creat Ratio 14.8 RATIO (10-20); Calcium,Total 8.3 mg/dL (8.5-10.1); Chloride 112 mmol/L (98-107); Cholesterol 111 mg/dL (200); Creatinine, Serum 0.95 mg/dL (0.70-1.30); EST Glomerular Filtration Rate 81 mL/min (>60); Est Glom Filt Rate - Afr Amer 98 mL/min (>60); Glucose 106 mg/dL (74-106); High Density Lipoprotein 48 mg/dL; Potassium 3.4 mmol/L (3.5-5.1); Sodium Level 144 mmol/L (136-145); Triglycerides 110 mg/dL; Very Low Density Lipoprotein 22 mg/dL (5-40)
[2018-02-26] MEDS: 0.9% Normal Saline 1,000 ML 100 ML IV ×2 (08:33→17:32)
[2018-02-26] MEDS: Heparin Injection (Vial) 5,000 UNIT/ML VIAL 5000 UNIT SC ×2 (08:47→22:14)
--- NOTE | 2018-02-26 13:03 | PN.NEURO_ITS ---
Patient Problems: Active and Suspected Problems (Last Reviewed 02/25/18 @ 11:10 by Timothy Hernandez MD) CVA (cerebral vascular accident) (Acute) Subjective: No new complaints. Daughter is present. Swallowing issues discussed. Questions answered. Objective: Logic examination he is awake and alert, oriented x3. His left arm is flaccid. There is some movement of his left leg. - Physical Exam Vital Signs Temp Pulse Resp BP Pulse Ox 37.0 C 105 H 22 H 133/75 H 94 02/26/18 09:14 02/26/18 12:30 02/26/18 12:30 02/26/18 12:30 02/26/18 12:30 Oxygen Flow Rate (L/min) 2 Oxygen Delivery Method Room Air Weight: 83 kg Body Mass Index (BMI) 27.8 Finger Stick Blood Glucose 114 Intake and Output for Last 24 Hours 02/24/18 02/25/18 02/26/18 23:59 23:59 23:59 Intake Total 633 / 633 1793 / 1793 Output Total 700 / 700 Balance 633 / 633 1093 / 1093 Laboratory Tests Past 24 Hrs 02/26/18 02/26/18 05:20 05:20 WBC 5.8 RBC 3.76 L Hgb 13.0 Hct 38.9 L MCV 103.5 H MCH 34.6 H MCHC 33.4 RDW 14.0 RDW Differential 51.4 H Plt Count 203 MPV 10.1 Immature Gran % (Auto) 0.200 Neut % (Auto) 70.0 Lymph % (Auto) 15.7 L [place] % (Auto) 8.5 Eos % (Auto) 5.4 H Baso % (Auto) 0.2 Absolute Neuts (auto) 4.1 Absolute Lymphs (auto) 0.91 Total Counted Not Reportable Sodium 144 Potassium 3.4 L Chloride 112 H Carbon Dioxide 25.0 Anion Gap 7 BUN 14 Creatinine 0.95 Estim Creat Clear Calc 57.00 Est GFR (MDRD) Af Amer 98 Est GFR (MDRD) Non-Af 81 BUN/Creatinine Ratio 14.8 Glucose 106 Calcium 8.3 L Triglycerides 110 Cholesterol 111 LDL Cholesterol 41 VLDL Cholesterol 22 HDL Cholesterol 48 MRI reviewed. He has an acute moderate right MCA distribution infarct. A. fib has been detected on telemetry and EKG. Medical Necessity - Tobacco Use Smoking Status: Current some day smoker Tobacco Use: Cigarettes, Cigars Assessment/Plan All Active Problems (Last Reviewed 02/25/18 @ 11:10 by Timothy Hernandez MD) CVA (cerebral vascular accident) (Acute) Acute right MCA distribution ischemic stroke. Newly diagnosed atrial fibrillation. Remains n.p.o. and has severe dysphagia. * PT/OT/speech therapy * N.p.o. until cleared by speech. Will need a PEG tube likely. This was discussed with the patient and daughter and they are considering. * Consider rehab: Discussed with patient and family * Telemetry monitoring * Continue statin therapy although changes to high dose * Permissive hypertension, treat systolic if over 200 * Add Plavix, continue aspirin therapy. After 5-7 days will likely need anticoagulation. This has been discussed with the patient and family as well.
--- NOTE | 2018-02-26 14:33 | PCM.PN.HOSP ---
Patient Problems: Active and Suspected Problems (Last Reviewed 02/25/18 @ 11:10 by Timothy Hernandez MD) CVA (cerebral vascular accident) (Acute) Subjective: Doing ok, No issues overnight, a little irritated since he is unable to smoke. Also went into a-fib Objective: General: Alert, Oriented x3, Cooperative, No apparent distress HEENT: Atraumatic, EOMI, Normocephalic Oral: Dry Mucosa Neck: Supple, No JVD Lungs: Clear to auscultation, Normal air movement, No rhonchi, No wheeze, No rales Cardiovascular: Regular rate, Irregular Rhythm, Normal S1, Normal S2, No murmurs Abdomen: Soft, Non Tender, Non-Distended, No Hepato-splenomegaly Extremities: No edema, Capillary Refill Less than 3 Seconds Skin: No rashes, No breakdown Musculoskeletal: No Tenderness to Palpation of Joints or Extremities Neurological: Deep Tendon Reflexes 2+/4 and Symmetrical, Sensory exam intact to light touch and pain, continued left sided deficits Psych/Mental Status: Normal Affect, Appropriate Vitals/I&O's: Vital Signs Temp Pulse Resp BP Pulse Ox 98.4 F 96 29 H 141/88 H 94 02/26/18 13:12 02/26/18 14:00 02/26/18 14:00 02/26/18 14:00 02/26/18 14:00 Oxygen Flow Rate (L/min) 2 Oxygen Delivery Method Room Air Weight: 182 lb 15.739 oz Body Mass Index (BMI) 27.8 Finger Stick Blood Glucose 114 Intake and Output for Last 24 Hours 02/24/18 02/25/18 02/26/18 23:59 23:59 23:59 Intake Total 633 / 633 1793 / 1793 Output Total 700 / 700 Balance 633 / 633 1093 / 1093 Laboratory Results 02/26/18 05:20: WBC 5.8, RBC 3.76 L, Hgb 13.0, Hct 38.9 L, MCV 103.5 H, MCH 34.6 H, MCHC 33.4, RDW 14.0, RDW Differential 51.4 H, Plt Count 203, MPV 10.1, Immature Gran % (Auto) 0.200, Neut % (Auto) 70.0, Lymph % (Auto) 15.7 L, [place] % (Auto) 8.5, Eos % (Auto) 5.4 H, Baso % (Auto) 0.2, Absolute Neuts (auto) 4.1, Absolute Lymphs (auto) 0.91, Total Counted Not Reportable 02/26/18 05:20: Sodium 144, Potassium 3.4 L, Chloride 112 H, Carbon Dioxide 25.0, Anion Gap 7, BUN 14, Creatinine 0.95, Estim Creat Clear Calc 57.00, Est GFR (MDRD) Af Amer 98, Est GFR (MDRD) Non-Af 81, BUN/Creatinine Ratio 14.8, Glucose 106, Calcium 8.3 L, Triglycerides 110, Cholesterol 111, LDL Cholesterol 41, VLDL Cholesterol 22, HDL Cholesterol 48 Current Medications Acetaminophen (Tylenol) 650 mg RECTAL Q6H PRN PRN PRN Reason: PAIN Last Admin: 02/26/18 05:39 Dose: 650 mg [facility]) [facility] Last Admin: 02/26/18 10:52 Dose: Not Given Atorvastatin Calcium (Lipitor) 40 mg PO QHS [facility] Last Admin: 02/25/18 20:11 Dose: Not Given Clopidogrel Bisulfate (Plavix) 75 mg PO DAILY [facility] Last Admin: 02/26/18 10:52 Dose: Not Given Heparin Sodium (Porcine) (Heparin Na) 5,000 unit SC Q12 [facility] Last Admin: 02/26/18 08:47 Dose: 5,000 unit Sodium Chloride () 1,000 mls @ 100 mls/hr IV .Q10H [facility] Last Admin: 02/26/18 08:33 Dose: 100 mls/hr Diltiazem HCl 125 mg/ Dextrose 125 mls @ 5 mls/hr IV .Q25H [facility] Last Admin: 02/26/18 12:06 Dose: 5 mls/hr Labetalol HCl (Trandate) 10 mg IV Q6H PRN PRN PRN Reason: BLOOD PRESSURE ELEVATION Last Admin: 02/26/18 02:16 Dose: 10 mg Magnesium Hydroxide (Milk Of Magnesia) 30 ml PO DAILY PRN PRN Reason: Constipation Nicotine (Nicoderm Cq (Pbkc)) 14 mg TRANSDERM. DAILY [facility] Last Admin: 02/26/18 12:05 Dose: 14 mg Sodium Chloride () 5 - 30 ml IV UD PRN PRN Reason: SALINE FLUSH Last Admin: 02/26/18 02:16 Dose: 10 ml Medical Necessity - Tobacco Use Smoking Status: Current some day smoker Tobacco Use: Cigarettes, Cigars Assessment/Plan All Active Problems (Last Reviewed 02/25/18 @ 11:10 by Timothy Hernandez MD) CVA (cerebral vascular accident) (Acute) 1. R MCA CVA/HLD/HTN/CAD/New onset a-fib - Presenting with dysarthria, loss of L CNXI, LUE weakness - He will need to be anticoagulated with plavix and eliquis once able to take PO - Increase statin - PT/OT and speech eval, he will need therapy after discharge - C/s to neuro, appreciate recs - CHADS-Vasc of 5 - Given his rate and the fact that it has been over 24 hours after the strok, will start a cardizem gtt to manage rate - Per speech therapy he is still to be maintained NPO - Will discuss with family the option of TPN then PEG or to progress straight to PEG for nutrition 2. rhabdomyolysis - total CK is elevated - renal function is Ok at the moment - c/w IVF hydration and monitor renal function 3. Tobacco use - discussed at length that he needs to quit - Will provide nicotine patch DVT: Heparin/SCDs Diet: NPO Code Visit Inpatient E&M: 08252 Subs Hosp L2
--- NOTE | 2018-02-26 14:38 | PN_ITS ---
Patient Problems: Active and Suspected Problems (Last Reviewed 02/25/18 @ 11:10 by Timothy Hernandez MD) CVA (cerebral vascular accident) (Acute) Subjective: Doing ok, No issues overnight, a little irritated since he is unable to smoke. Also went into a-fib Objective: General: Alert, Oriented x3, Cooperative, No apparent distress HEENT: Atraumatic, EOMI, Normocephalic Oral: Dry Mucosa Neck: Supple, No JVD Lungs: Clear to auscultation, Normal air movement, No rhonchi, No wheeze, No rales Cardiovascular: Regular rate, Irregular Rhythm, Normal S1, Normal S2, No murmurs Abdomen: Soft, Non Tender, Non-Distended, No Hepato-splenomegaly Extremities: No edema, Capillary Refill Less than 3 Seconds Skin: No rashes, No breakdown Musculoskeletal: No Tenderness to Palpation of Joints or Extremities Neurological: Deep Tendon Reflexes 2+/4 and Symmetrical, Sensory exam intact to light touch and pain, continued left sided deficits Psych/Mental Status: Normal Affect, Appropriate Vitals/I&O's: Vital Signs Temp Pulse Resp BP Pulse Ox 98.4 F 96 29 H 141/88 H 94 02/26/18 13:12 02/26/18 14:00 02/26/18 14:00 02/26/18 14:00 02/26/18 14:00 Oxygen Flow Rate (L/min) 2 Oxygen Delivery Method Room Air Weight: 182 lb 15.739 oz Body Mass Index (BMI) 27.8 Finger Stick Blood Glucose 114 Intake and Output for Last 24 Hours 02/24/18 02/25/18 02/26/18 23:59 23:59 23:59 Intake Total 633 / 633 1793 / 1793 Output Total 700 / 700 Balance 633 / 633 1093 / 1093 Laboratory Results 02/26/18 05:20: WBC 5.8, RBC 3.76 L, Hgb 13.0, Hct 38.9 L, MCV 103.5 H, MCH 34.6 H, MCHC 33.4, RDW 14.0, RDW Differential 51.4 H, Plt Count 203, MPV 10.1, Immature Gran % (Auto) 0.200, Neut % (Auto) 70.0, Lymph % (Auto) 15.7 L, [place] % (Auto) 8.5, Eos % (Auto) 5.4 H, Baso % (Auto) 0.2, Absolute Neuts (auto) 4.1, Absolute Lymphs (auto) 0.91, Total Counted Not Reportable 02/26/18 05:20: Sodium 144, Potassium 3.4 L, Chloride 112 H, Carbon Dioxide 25.0, Anion Gap 7, BUN 14, Creatinine 0.95, Estim Creat Clear Calc 57.00, Est GFR (MDRD) Af Amer 98, Est GFR (MDRD) Non-Af 81, BUN/Creatinine Ratio 14.8, Glucose 106, Calcium 8.3 L, Triglycerides 110, Cholesterol 111, LDL Cholesterol 41, VLDL Cholesterol 22, HDL Cholesterol 48 Current Medications Acetaminophen (Tylenol) 650 mg RECTAL Q6H PRN PRN PRN Reason: PAIN Last Admin: 02/26/18 05:39 Dose: 650 mg [facility]) [facility] Last Admin: 02/26/18 10:52 Dose: Not Given Atorvastatin Calcium (Lipitor) 40 mg PO QHS [facility] Last Admin: 02/25/18 20:11 Dose: Not Given Clopidogrel Bisulfate (Plavix) 75 mg PO DAILY [facility] Last Admin: 02/26/18 10:52 Dose: Not Given Heparin Sodium (Porcine) (Heparin Na) 5,000 unit SC Q12 [facility] Last Admin: 02/26/18 08:47 Dose: 5,000 unit Sodium Chloride () 1,000 mls @ 100 mls/hr IV .Q10H [facility] Last Admin: 02/26/18 08:33 Dose: 100 mls/hr Diltiazem HCl 125 mg/ Dextrose 125 mls @ 5 mls/hr IV .Q25H [facility] Last Admin: 02/26/18 12:06 Dose: 5 mls/hr Labetalol HCl (Trandate) 10 mg IV Q6H PRN PRN PRN Reason: BLOOD PRESSURE ELEVATION Last Admin: 02/26/18 02:16 Dose: 10 mg Magnesium Hydroxide (Milk Of Magnesia) 30 ml PO DAILY PRN PRN Reason: Constipation Nicotine (Nicoderm Cq (Pbkc)) 14 mg TRANSDERM. DAILY [facility] Last Admin: 02/26/18 12:05 Dose: 14 mg Sodium Chloride () 5 - 30 ml IV UD PRN PRN Reason: SALINE FLUSH Last Admin: 02/26/18 02:16 Dose: 10 ml Medical Necessity - Tobacco Use Smoking Status: Current some day smoker Tobacco Use: Cigarettes, Cigars Assessment/Plan All Active Problems (Last Reviewed 02/25/18 @ 11:10 by Timothy Hernandez MD) CVA (cerebral vascular accident) (Acute) 1. R MCA CVA/HLD/HTN/CAD/New onset a-fib - Presenting with dysarthria, loss of L CNXI, LUE weakness - He will need to be anticoagulated with plavix and eliquis once able to take PO - Increase statin - PT/OT and speech eval, he will need therapy after discharge - C/s to neuro, appreciate recs - CHADS-Vasc of 5 - Given his rate and the fact that it has been over 24 hours after the strok, will start a cardizem gtt to manage rate - Per speech therapy he is still to be maintained NPO - Will discuss with family the option of TPN then PEG or to progress straight to PEG for nutrition 2. rhabdomyolysis - total CK is elevated - renal function is Ok at the moment - c/w IVF hydration and monitor renal function 3. Tobacco use - discussed at length that he needs to quit - Will provide nicotine patch DVT: Heparin/SCDs Diet: NPO Code Visit Inpatient E&M: 03239 Subs Hosp L2
--- NOTE | 2018-02-26 14:57 | CASEMGMT ---
Per Dr. Hernandez's note, pt would be a good candidate for Inpt rehab. This RN CM to room to speak with pt regarding same and pt agrees to Inpt rehab at this time. Tania MUÑOZ aware at this time, voices understanding. Scott RN CM
--- NOTE | 2018-02-26 17:00 | CASEMGMT ---
WANDA spoke with Mimi in inpatient rehab and she said they could take patient pending pre-cert. Patient is not medically ready yet. Dianne HA [employer]ANDSCAPING SPECIALIST
[2018-02-27] VITALS (34 sets, daily range): BP systolic 131–168; BP diastolic 56–94; PULSE 58–138; RESP 14–36; TEMP 36.7–37.2; O2SAT 88–98; BMI 27.8
[2018-02-27] MEDS: Acetaminophen 650 MG Suppository RECTAL (01:53)
[2018-02-27] MEDS: 0.9% Normal Saline 1,000 ML 100 ML IV ×3 (03:36→23:49)
[2018-02-27 08:21] LABS: Absolute Lymphocyte Count 0.81 X10^3/ul (0.83-4.51); Absolute Neutrophil Count 3.6 X10^3/uL (2.0-7.7); Basophil# 0.01 X10^3/uL; Basophil% 0.2 % (0-1); Eosinophil# 0.27 X10^3/uL; Eosinophils% 5.1 % (0-5); Hematocrit 39.4 % (40-54); Lymphocyte # 0.81 X10^3/ul (4.0); Lymphocyte % 15.3 % (19-41); Mean Corpuscular Volume 103.1 fL (80-94); Mean Platelet Vol. 9.5 fl (6.2-12.0); Monocyte# 0.61 X10^3/uL; Monocyte% 11.5 % (0-10); Neutrophil % 67.7 % (47-70); Platelet Count 195 K/mm3 (150-450); RBC Distribution Width CV 13.9 % (11.6-14.6); RBC Distribution Width SD 51.3 fl (35.1-43.9); Red Blood Count 3.82 M/mm3 (4.6-6.2); White Blood Count 5.3 K/mm3 (4.4-11.0)
[2018-02-27 08:22] LABS: POSITIVE COUNT NO; POSITIVE DIFFERENTIAL NO; POSITIVE MORPHOLOGY NO
[2018-02-27 08:42] LABS: Anion Gap 9 (5-15); BUN 8 mg/dL (7-18); BUN/Creat Ratio 11.3 RATIO (10-20); Calcium,Total 8.1 mg/dL (8.5-10.1); Chloride 114 mmol/L (98-107); Creatinine, Serum 0.71 mg/dL (0.70-1.30); EST Glomerular Filtration Rate 113 mL/min (>60); Est Glom Filt Rate - Afr Amer 137 mL/min (>60); Estimated Creatinine Clearance 54.15 ml/min; Glucose 90 mg/dL (74-106); Potassium 3.6 mmol/L (3.5-5.1); Sodium Level 147 mmol/L (136-145)
[2018-02-27 08:58] LABS: Vitamin B12 267 pg/mL (211-911)
[2018-02-27] MEDS: Clopidogrel Bisulfate 75 MG Tablet PO (10:26)
[2018-02-27] MEDS: Aspirin E.C. 81 MG Tablet PO (10:26)
[2018-02-27] MEDS: Metoprolol Tartrate 50 MG Tablet PO ×2 (10:26→22:12)
[2018-02-27] MEDS: Heparin Injection (Vial) 5,000 UNIT/ML VIAL 5000 UNIT SC ×2 (10:27→22:12)
--- NOTE | 2018-02-27 11:05 | PCM.PN.HOSP ---
Patient Problems: Active and Suspected Problems (Last Reviewed 02/25/18 @ 11:10 by Timothy Hernandez MD) CVA (cerebral vascular accident) (Acute) Subjective: Doing better, more alert today and communicative. Limited mobility of his LUE, per speech he was able to tolerate some PO Objective: General: Alert, Oriented x3, Cooperative, No apparent distress HEENT: Atraumatic, EOMI, Normocephalic Oral: Dry Mucosa Neck: Supple, No JVD Lungs: Clear to auscultation, Normal air movement, No rhonchi, No wheeze, No rales Cardiovascular: Regular rate, Irregular Rhythm, Normal S1, Normal S2, No murmurs Abdomen: Soft, Non Tender, Non-Distended, No Hepato-splenomegaly Extremities: No edema, Capillary Refill Less than 3 Seconds Skin: No rashes, No breakdown Musculoskeletal: No Tenderness to Palpation of Joints or Extremities Neurological: Sensory exam intact to light touch and pain, continued left sided deficits Vitals/I&O's: Vital Signs Temp Pulse Resp BP Pulse Ox 98.4 F 96 34 H 157/57 H 94 02/27/18 09:30 02/27/18 10:51 02/27/18 10:51 02/27/18 10:19 02/27/18 10:51 Oxygen Flow Rate (L/min) 2.5 Oxygen Delivery Method Nasal Cannula Weight: 182 lb 15.739 oz Body Mass Index (BMI) 27.8 Finger Stick Blood Glucose 114 Intake and Output for Last 24 Hours 02/25/18 02/26/18 02/27/18 23:59 23:59 23:59 Intake Total 633 / 633 2280 / 2280 1476.6 / 1476.6 Output Total 1100 / 1100 700 / 700 Balance 633 / 633 1180 / 1180 776.6 / 776.6 Laboratory Results 02/27/18 07:55: Vitamin B12 267 02/27/18 07:55: WBC 5.3, RBC 3.82 L, Hgb 13.0, Hct 39.4 L, MCV 103.1 H, MCH 34.0 H, MCHC 33.0, RDW 13.9, RDW Differential 51.3 H, Plt Count 195, MPV 9.5, Immature Gran % (Auto) 0.200, Neut % (Auto) 67.7, Lymph % (Auto) 15.3 L, [place] % (Auto) 11.5 H, Eos % (Auto) 5.1 H, Baso % (Auto) 0.2, Absolute Neuts (auto) 3.6, Absolute Lymphs (auto) 0.81 L, Total Counted Not Reportable 02/27/18 07:55: Sodium 147 H, Potassium 3.6, Chloride 114 H, Carbon Dioxide 24.0, Anion Gap 9, BUN 8, Creatinine 0.71, Estim Creat Clear Calc 54.15, Est GFR (MDRD) Af Amer 137, Est GFR (MDRD) Non-Af 113, BUN/Creatinine Ratio 11.3, Glucose 90, Calcium 8.1 L Current Medications Acetaminophen (Tylenol) 650 mg RECTAL Q6H PRN PRN PRN Reason: PAIN Last Admin: 02/27/18 01:53 Dose: 650 mg [facility]) [facility] Last Admin: 02/27/18 10:26 Dose: 81 mg Atorvastatin Calcium (Lipitor) [address] [facility] Last Admin: 02/26/18 22:16 Dose: Not Given Clopidogrel Bisulfate (Plavix) [address] [facility] Last Admin: 02/27/18 10:26 Dose: 75 mg Heparin Sodium (Porcine) (Heparin Na) 5,[address] [facility] Last Admin: 02/27/18 10:27 Dose: 5,000 unit Sodium Chloride () 1,000 mls @ 100 mls/hr IV .Q10H [facility] Last Admin: 02/27/18 03:36 Dose: 100 mls/hr Diltiazem HCl 125 mg/ Dextrose 125 mls @ 5 mls/hr IV .Q25H [facility]; Protocol Last Admin: 02/27/18 02:30 Dose: Not Given Labetalol HCl (Trandate) 10 mg IV Q6H PRN PRN PRN Reason: BLOOD PRESSURE ELEVATION Last Admin: 02/26/18 02:16 Dose: 10 mg Magnesium Hydroxide (Milk Of Magnesia) 30 ml PO DAILY PRN PRN Reason: Constipation Metoprolol Tartrate (Lopressor (Beta Valeria)) [address] [facility] Last Admin: 02/27/18 10:26 Dose: 50 mg Nicotine (Nicoderm Cq (Pbkc)) [address] [facility] Last Admin: 02/27/18 10:27 Dose: 14 mg Sodium Chloride () 5 - 30 ml IV UD PRN PRN Reason: SALINE FLUSH Last Admin: 02/26/18 02:16 Dose: 10 ml Medical Necessity - Tobacco Use Smoking Status: Current some day smoker Tobacco Use: Cigarettes, Cigars Assessment/Plan All Active Problems (Last Reviewed 02/25/18 @ 11:10 by Timothy Hernandez MD) CVA (cerebral vascular accident) (Acute) 1. R MCA CVA/HLD/HTN/CAD/New onset a-fib - Presenting with dysarthria, loss of L CNXI, LUE weakness - He will need to be anticoagulated with plavix and eliquis once able to take PO - Increase statin to 40 mg daily - PT/OT and speech eval, he will need therapy after discharge - C/s to neuro, appreciate recs - CHADS-Vasc of 5 - Will DC cardizem and restart his home metoprolol - Per speech therapy he can be advanced in his diet 2. rhabdomyolysis - Resolved - total CK is elevated - renal function is Ok at the moment - c/w IVF hydration and monitor renal function 3. Tobacco use - discussed at length that he needs to quit - Will provide nicotine patch 4. Macrocytosis - B12 is low normal - Will obtain folate DVT: Heparin/SCDs Diet: Puree with honey thick Code Visit Inpatient E&M: 18474 Subs Hosp L2
--- NOTE | 2018-02-27 11:11 | PN_ITS ---
Patient Problems: Active and Suspected Problems (Last Reviewed 02/25/18 @ 11:10 by Timothy Hernandez MD) CVA (cerebral vascular accident) (Acute) Subjective: Doing better, more alert today and communicative. Limited mobility of his LUE, per speech he was able to tolerate some PO Objective: General: Alert, Oriented x3, Cooperative, No apparent distress HEENT: Atraumatic, EOMI, Normocephalic Oral: Dry Mucosa Neck: Supple, No JVD Lungs: Clear to auscultation, Normal air movement, No rhonchi, No wheeze, No rales Cardiovascular: Regular rate, Irregular Rhythm, Normal S1, Normal S2, No murmurs Abdomen: Soft, Non Tender, Non-Distended, No Hepato-splenomegaly Extremities: No edema, Capillary Refill Less than 3 Seconds Skin: No rashes, No breakdown Musculoskeletal: No Tenderness to Palpation of Joints or Extremities Neurological: Sensory exam intact to light touch and pain, continued left sided deficits Vitals/I&O's: Vital Signs Temp Pulse Resp BP Pulse Ox 98.4 F 96 34 H 157/57 H 94 02/27/18 09:30 02/27/18 10:51 02/27/18 10:51 02/27/18 10:19 02/27/18 10:51 Oxygen Flow Rate (L/min) 2.5 Oxygen Delivery Method Nasal Cannula Weight: 182 lb 15.739 oz Body Mass Index (BMI) 27.8 Finger Stick Blood Glucose 114 Intake and Output for Last 24 Hours 02/25/18 02/26/18 02/27/18 23:59 23:59 23:59 Intake Total 633 / 633 2280 / 2280 1476.6 / 1476.6 Output Total 1100 / 1100 700 / 700 Balance 633 / 633 1180 / 1180 776.6 / 776.6 Laboratory Results 02/27/18 07:55: Vitamin B12 267 02/27/18 07:55: WBC 5.3, RBC 3.82 L, Hgb 13.0, Hct 39.4 L, MCV 103.1 H, MCH 34.0 H, MCHC 33.0, RDW 13.9, RDW Differential 51.3 H, Plt Count 195, MPV 9.5, Immature Gran % (Auto) 0.200, Neut % (Auto) 67.7, Lymph % (Auto) 15.3 L, [place] % (Auto) 11.5 H, Eos % (Auto) 5.1 H, Baso % (Auto) 0.2, Absolute Neuts (auto) 3.6, Absolute Lymphs (auto) 0.81 L, Total Counted Not Reportable 02/27/18 07:55: Sodium 147 H, Potassium 3.6, Chloride 114 H, Carbon Dioxide 24.0, Anion Gap 9, BUN 8, Creatinine 0.71, Estim Creat Clear Calc 54.15, Est GFR (MDRD) Af Amer 137, Est GFR (MDRD) Non-Af 113, BUN/Creatinine Ratio 11.3, Glucose 90, Calcium 8.1 L Current Medications Acetaminophen (Tylenol) 650 mg RECTAL Q6H PRN PRN PRN Reason: PAIN Last Admin: 02/27/18 01:53 Dose: 650 mg [facility] Last Admin: 02/27/18 10:26 Dose: 81 mg Atorvastatin Calcium (Lipitor) 40 mg PO QHS [facility] Last Admin: 02/26/18 22:16 Dose: Not Given Clopidogrel Bisulfate (Plavix) 75 mg PO DAILY [facility] Last Admin: 02/27/18 10:26 Dose: 75 mg Heparin Sodium (Porcine) (Heparin Na) 5,000 unit SC Q12 [facility] Last Admin: 02/27/18 10:27 Dose: 5,000 unit Sodium Chloride () 1,000 mls @ 100 mls/hr IV .Q10H [facility] Last Admin: 02/27/18 03:36 Dose: 100 mls/hr Diltiazem HCl 125 mg/ Dextrose 125 mls @ 5 mls/hr IV .Q25H [facility]; Protocol Last Admin: 02/27/18 02:30 Dose: Not Given Labetalol HCl (Trandate) 10 mg IV Q6H PRN PRN PRN Reason: BLOOD PRESSURE ELEVATION Last Admin: 02/26/18 02:16 Dose: 10 mg Magnesium Hydroxide (Milk Of Magnesia) 30 ml PO DAILY PRN PRN Reason: Constipation Metoprolol Tartrate (Lopressor (Beta Valeria)) 50 mg PO BID [facility] Last Admin: 02/27/18 10:26 Dose: 50 mg Nicotine (Nicoderm Cq (Pbkc)) 14 mg TRANSDERM. DAILY [facility] Last Admin: 02/27/18 10:27 Dose: 14 mg Sodium Chloride () 5 - 30 ml IV UD PRN PRN Reason: SALINE FLUSH Last Admin: 02/26/18 02:16 Dose: 10 ml Medical Necessity - Tobacco Use Smoking Status: Current some day smoker Tobacco Use: Cigarettes, Cigars Assessment/Plan All Active Problems (Last Reviewed 02/25/18 @ 11:10 by Timothy Hernandez MD) CVA (cerebral vascular accident) (Acute) 1. R MCA CVA/HLD/HTN/CAD/New onset a-fib - Presenting with dysarthria, loss of L CNXI, LUE weakness - He will need to be anticoagulated with plavix and eliquis once able to take PO - Increase statin to 40 mg daily - PT/OT and speech eval, he will need therapy after discharge - C/s to neuro, appreciate recs - CHADS-Vasc of 5 - Will DC cardizem and restart his home metoprolol - Per speech therapy he can be advanced in his diet 2. rhabdomyolysis - Resolved - total CK is elevated - renal function is Ok at the moment - c/w IVF hydration and monitor renal function 3. Tobacco use - discussed at length that he needs to quit - Will provide nicotine patch 4. Macrocytosis - B12 is low normal - Will obtain folate DVT: Heparin/SCDs Diet: Puree with honey thick Code Visit Inpatient E&M: 21485 Subs Hosp L2
--- NOTE | 2018-02-27 12:10 | CASEMGMT ---
WANDA spoke with Mimi and she will start the pre-cert for [facility] 4th floor rehab unit. Plan: [facility] 4th floor rehab unit pending pre-cert Dianne HA MSW
--- NOTE | 2018-02-27 12:52 | PN.NEURO_ITS ---
Patient Problems: Active and Suspected Problems (Last Reviewed 02/25/18 @ 11:10 by Timothy Hernandez MD) CVA (cerebral vascular accident) (Acute) Subjective: headache resloved, tolerating pureed, honey thick - Physical Exam General: Alert, Oriented x3, Cooperative Vital Signs Temp Pulse Resp BP Pulse Ox 36.9 C 84 21 H 154/94 H 95 02/27/18 09:30 02/27/18 11:00 02/27/18 11:00 02/27/18 11:00 02/27/18 11:00 Oxygen Flow Rate (L/min) 2 Oxygen Delivery Method Nasal Cannula Weight: 83 kg Body Mass Index (BMI) 27.8 Finger Stick Blood Glucose 114 Intake and Output for Last 24 Hours 02/25/18 02/26/18 02/27/18 23:59 23:59 23:59 Intake Total 633 / 633 2280 / 2280 2212.6 / 2212.6 Output Total 1100 / 1100 775 / 775 Balance 633 / 633 1180 / 1180 1437.6 / 1437.6 Laboratory Tests Past 24 Hrs 02/27/18 02/27/18 02/27/18 07:55 07:55 07:55 WBC 5.3 RBC 3.82 L Hgb 13.0 Hct 39.4 L MCV 103.1 H MCH 34.0 H MCHC 33.0 RDW 13.9 RDW Differential 51.3 H Plt Count 195 MPV 9.5 Immature Gran % (Auto) 0.200 Neut % (Auto) 67.7 Lymph % (Auto) 15.3 L [place] % (Auto) 11.5 H Eos % (Auto) 5.1 H Baso % (Auto) 0.2 Absolute Neuts (auto) 3.6 Absolute Lymphs (auto) 0.81 L Total Counted Not Reportable Sodium 147 H Potassium 3.6 Chloride 114 H Carbon Dioxide 24.0 Anion Gap 9 BUN 8 Creatinine 0.71 Estim Creat Clear Calc 54.15 Est GFR (MDRD) Af Amer 137 Est GFR (MDRD) Non-Af 113 BUN/Creatinine Ratio 11.3 Glucose 90 Calcium 8.1 L Vitamin B12 267 Folate 02/27/18 07:55 WBC RBC Hgb Hct MCV MCH MCHC RDW RDW Differential Plt Count MPV Immature Gran % (Auto) Neut % (Auto) Lymph % (Auto) [place] % (Auto) Eos % (Auto) Baso % (Auto) Absolute Neuts (auto) Absolute Lymphs (auto) Total Counted Sodium Potassium Chloride Carbon Dioxide Anion Gap BUN Creatinine Estim Creat Clear Calc Est GFR (MDRD) Af Amer Est GFR (MDRD) Non-Af BUN/Creatinine Ratio Glucose Calcium Vitamin B12 Folate 42.30 Medical Necessity - Tobacco Use Smoking Status: Current some day smoker Tobacco Use: Cigarettes, Cigars Assessment/Plan All Active Problems (Last Reviewed 02/25/18 @ 11:10 by Timothy Hernandez MD) CVA (cerebral vascular accident) (Acute) Acute right MCA distribution ischemic stroke. Newly diagnosed atrial fibrillation. Remains n.p.o. and has severe dysphagia. * PT/OT/speech therapy * N.p.o. until cleared by speech. Will need a PEG tube likely. This was discussed with the patient and daughter and they are considering.02/27: now tolerating pureed/honey thick * Consider rehab: Discussed with patient and family * Telemetry monitoring * Continue statin therapy although changes to high dose * Permissive hypertension, treat systolic if over 200 * Add Plavix, continue aspirin therapy. After 5-7 days will likely need anticoagulation. This has been discussed with the patient and family as well.
--- NOTE | 2018-02-27 15:45 | EKG12_ITS ---
Test Reason : RHYTHM Blood Pressure : / mmHG Vent. Rate : 064 BPM Atrial Rate : 064 BPM P-R Int : 190 ms QRS Dur : 084 ms QT Int : 426 ms P-R-T Axes : 029 003 105 degrees QTc Int : 439 ms Sinus rhythm with Premature atrial complexes Possible Inferior infarct , age undetermined T wave abnormality, consider lateral ischemia Abnormal ECG When compared with ECG of 26-FEB-2018 11:09, MANUAL COMPARISON REQUIRED, DATA IS UNCONFIRMED Confirmed by BERNABE BRAUN, TONYA ([id number]), managing editor ALEAH LEUNG ([id number]) on 03/04/2018 3:58:39 PM Referred By: Confirmed By:TONYA KIDD MD
[2018-02-27] MEDS: Atorvastatin Calcium 40 MG Tablet PO (22:12)
[2018-02-28] VITALS (17 sets, daily range): BP systolic 143–165; BP diastolic 58–82; PULSE 50–68; RESP 16–22; TEMP 36.5–36.9; O2SAT 94–98; BMI 27.8
[2018-02-28] MEDS: Acetaminophen 325 MG Tablet 650 MG PO ×3 (00:22→18:21)
[2018-02-28] MEDS: Clopidogrel Bisulfate 75 MG Tablet PO (09:03)
[2018-02-28] MEDS: Metoprolol Tartrate 50 MG Tablet PO ×2 (09:03→21:24)
[2018-02-28] MEDS: Aspirin E.C. 81 MG Tablet PO (09:03)
[2018-02-28] MEDS: Heparin Injection (Vial) 5,000 UNIT/ML VIAL 5000 UNIT SC ×2 (09:03→21:24)
[2018-02-28] MEDS: 0.9% Normal Saline 1,000 ML 100 ML IV ×3 (09:07→23:19)
--- NOTE | 2018-02-28 13:00 | RAD_ITS ---
STUDY: SWALLOWING STUDY REASON FOR EXAM: Male, 82 years old. Dysphasia TECHNIQUE: The examination was performed with Speech Pathology in attendance. Under fluoroscopic observation, the patient ingested thin barium, thick barium, barium pudding, and barium coated cracker. FLUOROSCOPY TIME: 3:45 minutes/seconds RADIOLOGIST INVOLVEMENT: Radiologist was present and providing direct supervision. COMPARISON: None. FINDINGS: The following was observed during swallowing of the various mixtures of barium: Thin Barium: There was silent aspiration. Thick Barium: There was silent aspiration of nectar thick. Barium Pudding: There was no evidence of aspiration or laryngeal penetration. Barium Coated Cracker: There was no evidence of aspiration or laryngeal penetration. RAD/Swallowing Function w/Video IMPRESSION: Silent aspiration with thin barium and nectar thick liquid barium. The swallow study findings were discussed with the patient by the speech pathologist at the conclusion of the examination. Please see speech pathology report for more information and recommendations. The procedure was performed by speech pathologist under the direct supervision of myself Electronically Signed: Cleve Betancourt MD at 13:59 EDT Tel , Service support ,
--- NOTE | 2018-02-28 15:36 | SP.MBSS_ITS ---
PRIMARY / SECONDARY DIAGNOSIS: CVA, dysphagia REFERRING PHYSICIAN: Dr. Og Jones CURRENT DIET: puree textures/honey thick liquids DENTITION: natural teeth MENTAL STATUS: alert and oriented RESPIRATORY STATUS: oxygenating on room air PREVIOUS MODIFIED BARIUM SWALLOW STUDY: REASON FOR REFERRAL: Dysphagia MEDICAL HISTORY: CAD, carotid arterial disease, hyperlipidemia, half-way current use of therapeutic drug, HTN STUDY FINDINGS: Patient participated in a Modified Barium Swallow (MBS) study on 02/28/2017. Dr. Betancourt was the radiologist present for this evaluation. This study was recorded in the lateral view and images were sent to PACs for storage. The following consistencies were presented to this patient for analysis of oropharyngeal swallow function: thin liquid, nectar liquid, honey liquid, pudding, and a regular textured, [place] cookie. Results of the MBS are as follows: PENETRATION / ASPIRATION SCALE (CHRISTIANSON): 1 = does not enter airway 2 = enters airway/above vocal folds/ejected 3 = enters airway/above vocal folds/not ejected 4 = enters airway/contacts vocal folds/ejected 5 = enters airway/contacts vocal folds/not ejected 6 = enters airway/below vocal folds/ejected 7 = enters airway/below vocal folds/not ejected despite effort 8 = enters airway/below vocal folds/no effort PENETRATION / ASPIRATION SCALE (SCORE) - listed in order of presentation: 1. Thin liquid via tsp -1 2. Thin liquid via tsp- 8 3. Thin liquid via cup- 2 4. Thin liquid with instruction for chin tuck, however chin tuck completed after swallow- 2 5. Thin liquid with chin tuck- 8 6. [place] thick liquids chin tuck- 8 7. [place] thick liquids without chin tuck- 8 8. honey thick liquids via cup- 2 9. honey thick liquids via cup- 2 10. pudding- 1 *not recorded due to equipment error 11. cookie- 1 12. cookie- 1 13. [place] thick liquids-large sip- 8 IMPRESSION: moderate-severe oropharyngeal dysphagia ORAL PHASE CHARACTERIZED BY: LABIAL SEAL: escape beyond mid chin TONGUE CONTROL DURING BOLUS MANIPULATION: posterior escape of less than half of bolus BOLUS PREPARATION / MASTICATION: disorganized chewing/mashing with solid pieces of bolus unchewed BOLUS TRANSPORT / LINGUAL MOTION: slowed tongue motion ORAL RESIDUE: majority of bolus remaining PHARYNGEAL PHASE CHARACTERIZED BY: INITIATION OF PHARYNGEAL SWALLOW: bolus head in valleculae at first hyoid excursion SOFT PALATE ELEVATION: no bolus between soft palate and pharyngeal wall LARYNGEAL ELEVATION: partial superior movement of thyroid cartilage/partial approximation of arytenoids cartilage to epiglottic petiole ANTERIOR HYOID EXCURSION: partial anterior movement EPIGLOTTIC MOVEMENT: complete epiglottic inversion LARYNGEAL VESTIBULE CLOSURE AT HEIGHT OF SWALLOW: incomplete laryngeal vestibule closure with narrow column of air/contrast in laryngeal vestibule PHARYNGEAL STRIPPING WAVE: pharyngeal stripping wave absent PHARYNGOESOPHAGEAL SEGMENT OPENING: partial distension and partial duration; partial obstruction of flow TONGUE BASE RETRACTION: narrow column of contrast between tongue base and posterior pharyngeal wall PHARYNGEAL RESIDUE: trace residue within or on pharyngeal structures ESOPHAGEAL PHASE CHARACTERIZED BY: ESOPHAGEAL BOLUS CLEARANCE IN THE UPRIGHT POSITION: esophageal retention with retrograde flow through PES EFFECTS OF TREATMENT STRATEGIES ATTEMPTED: Chin tuck posture = ineffective Cough and reswallow = ineffective Double swallow = effective to clear refluxed contents INTERPRETATION OF RESULTS: Patient presents with moderate-severe oropharyngeal dysphagia (R13.12) secondary to CVA. ORAL PHASE: Oral phase primarily marked by moderate mastication inefficiency worse with fatigue along with suboptimal lingual control with noted effort and mashing pumping of tongue prior to deglutition. Moderate-severe oral residue with remaining cookie unchewed requiring continued mastication after initial swallow. With large nectar thick liquid trial, patient noted to use swishing prior to swallow initiation with poor labial seal resulting in copious amounts of oral spillage. PHARYNGEAL PHASE: Pharyngeal phase primarily marked by delayed pharyngeal swallow onset timing, reduced laryngeal elevation and excursion resulting in penetration and aspiration with thin and nectar thickened liquids. When completing trial of both thin and nectar with and without chin tuck aspiration was SILENT in nature. With trials of honey thick liquids penetration was noted, however ejected with no aspiration. Complete epiglottic inversion observed. Importantly, retrograde flow of contents noted back through the PES to pyriform sinus' placing the patient at increased risk to aspirate refluxed contents. Pt tolerated well with trace residue. Adjustments in bolus volume with liquids and textures effective at reducing complications. Cough response strong but ineffective to clear aspiration from trachea. Patient noted to overtly aspirate during trials of thin and nectar thick liquids, however pt also noted to SILENTLY aspirate on both thin and nectar thick liquids with clinical assessment at bedside relying on identification of classic overt signs and symptoms of aspiration unreliable. Would recommend repeat MBS prior to consideration of upgrade beyond honey thickened liquids. RECOMMENDATIONS: DIET TEXTURE RECOMMENDATIONS: Will recommend a puree textured, honey liquid diet. COMPENSATORY STRATEGIES RECOMMENDED: Supervision, decreased bolus size, slow rate, only eat when alert, cue for double swallow if patient coughs or c/o tickling sensation, seated upright at 90 degrees during PO intake, remain upright for 30-60 minutes post meal (GERD precaution), and medications with applesauce. Repeat MBS * Would strongly discourage advancement past honey thickened liquids without completion of a repeat modified barium swallow study due to the extent of aspirate identified that was SILENT in nature. 4-6 weeks. [place] Protocol (FFWP) Would consider implementation of the [place] Protocol (FFWP) following patient and family education at next level of care given adequate supervision. Treatment considerations: Patient requires intensive skilled speech-language intervention targeting continued diet texture management, training and implementation of recommended compensatory strategies, and training and implementation of oropharyngeal strengthening exercises to facilitate improved oropharyngeal strength and coordination. ADDITIONAL COMMENTS/RECOMMENDATIONS: Results and recommendations were discussed with the patient immediately following MBS completion, with the patient verbalizing understanding and agreement with all recommendations and education provided. IMAGE COUNT: [id number]
--- NOTE | 2018-02-28 16:43 | PCM.PN.HOSP ---
Patient Problems: Active and Suspected Problems (Last Reviewed 02/25/18 @ 11:10 by Timothy Hernandez MD) CVA (cerebral vascular accident) (Acute) Subjective: Says that he is doing better today, some function is returning to his LUE and the nicotine patch is helping Objective: General: Alert, Oriented x3, Cooperative, No apparent distress HEENT: Atraumatic, EOMI, Normocephalic Oral: Dry Mucosa Neck: Supple, No JVD Lungs: Clear to auscultation, Normal air movement, No rhonchi, No wheeze, No rales Cardiovascular: Regular rate, regular Rhythm, Normal S1, Normal S2, No murmurs Abdomen: Soft, Non Tender, Non-Distended, No Hepato-splenomegaly Extremities: No edema, Capillary Refill Less than 3 Seconds Skin: No rashes, No breakdown Musculoskeletal: No Tenderness to Palpation of Joints or Extremities Neurological: Sensory exam intact to light touch and pain, continued left sided deficits Vitals/I&O's: Vital Signs Temp Pulse Resp BP Pulse Ox 97.9 F 58 L 16 143/71 H 94 02/28/18 15:10 02/28/18 15:10 02/28/18 15:10 02/28/18 15:10 02/28/18 15:10 Oxygen Flow Rate (L/min) 2.5 Oxygen Delivery Method Room Air Weight: 182 lb 15.739 oz Body Mass Index (BMI) 27.8 Finger Stick Blood Glucose 114 Intake and Output for Last 24 Hours 02/26/18 02/27/18 02/28/18 23:59 23:59 23:59 Intake Total 2280 / 2280 3567.6 / 3567.6 1238 / 1238 Output Total 1100 / 1100 1095 / 1095 350 / 350 Balance 1180 / 1180 2472.6 / 2472.6 888 / 888 Current Medications Acetaminophen (Tylenol) 650 mg PO Q6H PRN PRN PRN Reason: Headache or Fever Last Admin: 02/28/18 07:20 Dose: 650 mg [facility] Last Admin: 02/28/18 09:03 Dose: 81 mg Atorvastatin Calcium (Lipitor) 40 mg PO QHS [facility] Last Admin: 02/27/18 22:12 Dose: 40 mg Clopidogrel Bisulfate (Plavix) 75 mg PO DAILY [facility] Last Admin: 02/28/18 09:03 Dose: 75 mg Heparin Sodium (Porcine) (Heparin Na) 5,000 unit SC Q12 [facility] Last Admin: 02/28/18 09:03 Dose: 5,000 unit Sodium Chloride () 1,000 mls @ 100 mls/hr IV .Q10H [facility] Last Admin: 02/28/18 09:07 Dose: 100 mls/hr Labetalol HCl (Trandate) 10 mg IV Q6H PRN PRN PRN Reason: BLOOD PRESSURE ELEVATION Last Admin: 02/26/18 02:16 Dose: 10 mg Magnesium Hydroxide (Milk Of Magnesia) 30 ml PO DAILY PRN PRN Reason: Constipation Metoprolol Tartrate (Lopressor (Beta Valeria)) 50 mg PO BID [facility] Last Admin: 02/28/18 09:03 Dose: 50 mg Nicotine (Nicoderm Cq (Pbkc)) 14 mg TRANSDERM. DAILY [facility] Last Admin: 02/28/18 09:03 Dose: 14 mg Sodium Chloride () 5 - 30 ml IV UD PRN PRN Reason: SALINE FLUSH Last Admin: 02/26/18 02:16 Dose: 10 ml Medical Necessity - Tobacco Use Smoking Status: Current some day smoker Tobacco Use: Cigarettes, Cigars Assessment/Plan All Active Problems (Last Reviewed 02/25/18 @ 11:10 by Timothy Hernandez MD) CVA (cerebral vascular accident) (Acute) 1. R MCA CVA/HLD/HTN/CAD/New onset a-fib - Presenting with dysarthria, loss of L CNXI, LUE weakness - He will need to be anticoagulated with plavix and eliquis once able to take PO - Statin 40 mg daily - PT/OT and speech eval, he will need therapy after discharge - C/s to neuro, appreciate recs - CHADS-Vasc of 5 - C/w home metoprolol, rate controlled and may need to start lisinopril if his BP remains elevated 2. rhabdomyolysis - Resolved - total CK is elevated - renal function is Ok at the moment - c/w IVF hydration and monitor renal function 3. Tobacco use - discussed at length that he needs to quit - Will provide nicotine patch 4. Macrocytosis - B12 is low normal - Folate is also normal DVT: Heparin/SCDs Diet: Puree with honey thick Code Visit Inpatient E&M: 76134 Subs Hosp L2
--- NOTE | 2018-02-28 16:48 | PN_ITS ---
Patient Problems: Active and Suspected Problems (Last Reviewed 02/25/18 @ 11:10 by Timothy Hernandez MD) CVA (cerebral vascular accident) (Acute) Subjective: Says that he is doing better today, some function is returning to his LUE and the nicotine patch is helping Objective: General: Alert, Oriented x3, Cooperative, No apparent distress HEENT: Atraumatic, EOMI, Normocephalic Oral: Dry Mucosa Neck: Supple, No JVD Lungs: Clear to auscultation, Normal air movement, No rhonchi, No wheeze, No rales Cardiovascular: Regular rate, regular Rhythm, Normal S1, Normal S2, No murmurs Abdomen: Soft, Non Tender, Non-Distended, No Hepato-splenomegaly Extremities: No edema, Capillary Refill Less than 3 Seconds Skin: No rashes, No breakdown Musculoskeletal: No Tenderness to Palpation of Joints or Extremities Neurological: Sensory exam intact to light touch and pain, continued left sided deficits Vitals/I&O's: Vital Signs Temp Pulse Resp BP Pulse Ox 97.9 F 58 L 16 143/71 H 94 02/28/18 15:10 02/28/18 15:10 02/28/18 15:10 02/28/18 15:10 02/28/18 15:10 Oxygen Flow Rate (L/min) 2.5 Oxygen Delivery Method Room Air Weight: 182 lb 15.739 oz Body Mass Index (BMI) 27.8 Finger Stick Blood Glucose 114 Intake and Output for Last 24 Hours 02/26/18 02/27/18 02/28/18 23:59 23:59 23:59 Intake Total 2280 / 2280 3567.6 / 3567.6 1238 / 1238 Output Total 1100 / 1100 1095 / 1095 350 / 350 Balance 1180 / 1180 2472.6 / 2472.6 888 / 888 Current Medications Acetaminophen (Tylenol) 650 mg PO Q6H PRN PRN PRN Reason: Headache or Fever Last Admin: 02/28/18 07:20 Dose: 650 mg [facility]) [facility] Last Admin: 02/28/18 09:03 Dose: 81 mg Atorvastatin Calcium (Lipitor) 40 mg PO QHS [facility] Last Admin: 02/27/18 22:12 Dose: 40 mg Clopidogrel Bisulfate (Plavix) 75 mg PO DAILY [facility] Last Admin: 02/28/18 09:03 Dose: 75 mg Heparin Sodium (Porcine) (Heparin Na) 5,000 unit SC Q12 [facility] Last Admin: 02/28/18 09:03 Dose: 5,000 unit Sodium Chloride () 1,000 mls @ 100 mls/hr IV .Q10H [facility] Last Admin: 02/28/18 09:07 Dose: 100 mls/hr Labetalol HCl (Trandate) 10 mg IV Q6H PRN PRN PRN Reason: BLOOD PRESSURE ELEVATION Last Admin: 02/26/18 02:16 Dose: 10 mg Magnesium Hydroxide (Milk Of Magnesia) 30 ml PO DAILY PRN PRN Reason: Constipation Metoprolol Tartrate (Lopressor (Beta Valeria)) 50 mg PO BID [facility] Last Admin: 02/28/18 09:03 Dose: 50 mg Nicotine (Nicoderm Cq (Pbkc)) 14 mg TRANSDERM. DAILY [facility] Last Admin: 02/28/18 09:03 Dose: 14 mg Sodium Chloride () 5 - 30 ml IV UD PRN PRN Reason: SALINE FLUSH Last Admin: 02/26/18 02:16 Dose: 10 ml Medical Necessity - Tobacco Use Smoking Status: Current some day smoker Tobacco Use: Cigarettes, Cigars Assessment/Plan All Active Problems (Last Reviewed 02/25/18 @ 11:10 by Timothy Hernandez MD) CVA (cerebral vascular accident) (Acute) 1. R MCA CVA/HLD/HTN/CAD/New onset a-fib - Presenting with dysarthria, loss of L CNXI, LUE weakness - He will need to be anticoagulated with plavix and eliquis once able to take PO - Statin 40 mg daily - PT/OT and speech eval, he will need therapy after discharge - C/s to neuro, appreciate recs - CHADS-Vasc of 5 - C/w home metoprolol, rate controlled and may need to start lisinopril if his BP remains elevated 2. rhabdomyolysis - Resolved - total CK is elevated - renal function is Ok at the moment - c/w IVF hydration and monitor renal function 3. Tobacco use - discussed at length that he needs to quit - Will provide nicotine patch 4. Macrocytosis - B12 is low normal - Folate is also normal DVT: Heparin/SCDs Diet: Puree with honey thick Code Visit Inpatient E&M: 95999 Subs Hosp L2
[2018-02-28] MEDS: Atorvastatin Calcium 40 MG Tablet PO (21:23)
[2018-03-01] VITALS (9 sets, daily range): BP systolic 164–168; BP diastolic 69–78; PULSE 54–60; RESP 16–20; TEMP 36.6–36.9; O2SAT 91–98; BMI 27.8
[2018-03-01] MEDS: Acetaminophen 325 MG Tablet 650 MG PO ×3 (02:30→15:30)
[2018-03-01] MEDS: 0.9% NaCl Peripheral Flush Adult/Peds IV (02:30)
[2018-03-01] MEDS: Metoprolol Tartrate 50 MG Tablet PO (08:49)
[2018-03-01] MEDS: Heparin Injection (Vial) 5,000 UNIT/ML VIAL 5000 UNIT SC (08:49)
[2018-03-01] MEDS: Clopidogrel Bisulfate 75 MG Tablet PO (08:50)
[2018-03-01] MEDS: Aspirin E.C. 81 MG Tablet PO (08:50)
[2018-03-01] MEDS: 0.9% Normal Saline 1,000 ML 100 ML IV (09:01)
--- NOTE | 2018-03-01 14:07 | CASEMGMT ---
WANDA spoke with patient and let him know we are still waiting on his insurance to approve him to go to rehab. Dianne HA MSW
--- NOTE | 2018-03-01 15:22 | DCINST_ITS ---
- Discharge Diagnoses Current Active Problems: Current Active and Chronic Problems (Last Reviewed 02/25/18 @ 11:10 by Timothy Hernandez MD) CVA (cerebral vascular accident) (Acute) Your food should be the consistency of: Puree Your liquids should be the consistency of: Honey Thick Call your doctor if you observe: Shortness of breath, Dizziness, Chest pain, Increased palpitations (irregular heartbeat) Allergies/Adverse Reactions: Allergies No Known Allergies Allergy (Verified 02/25/18 08:36) Medications to take at Discharge aspirin 81 mg tablet,delayed release 81 mg PO DAILY 0 Days 04/30/17 metoprolol tartrate 50 mg tablet 50 mg PO BID #180 tab 02/11/18 Atorvastatin Calcium [Lipitor] 40 mg PO QHS tablet 03/01/18 Clopidogrel Bisulfate [Plavix] 75 mg PO DAILY tablet 03/01/18 Nicotine [Nicoderm] 14 mg TRANSDERM. DAILY patch 03/01/18 Primary Care Physician: Derek Singh Chi, MD [Primary Care Provider] - Please follow up with your Primary Care Physician in: in 3-5 days Test Results: Test results from this visit will be discussed in further detail at your follow- up appointment, if applicable.
--- NOTE | 2018-03-01 15:28 | DS.PCM_ITS ---
Discharge Date and Diagnosis - Problem List Patient Problems: Active and Suspected Problems (Last Reviewed 02/25/18 @ 11:10 by Timothy Hernandez MD) CVA (cerebral vascular accident) (Acute) Date of Admission: 02/25/18 Date of Discharge: 03/01/18 - Primary Discharge Diagnosis Active and Suspected Problems (Last Reviewed 02/25/18 @ 11:10 by Timothy Hernandez MD) CVA (cerebral vascular accident) (Acute) - Secondary Discharge Diagnosis Chronic Problems (Last Reviewed 02/25/18 @ 11:10 by Timothy Hernandez MD) CAD (coronary artery disease) (Chronic) Carotid arterial disease (Chronic) Hyperlipidemia (Chronic) detention current use of therapeutic drug (Chronic) HTN (hypertension), benign (Chronic) Hospital Course and Treatment Imaging Results: CT brain: IMPRESSION: Chronic involutional changes of the brain. CTA Head: IMPRESSION: Nonvisualization of the M2 segment of the right middle cerebral artery. Occlusion should be ruled out. CTA Neck: IMPRESSION: Atherosclerotic plaque at the origin of the right internal carotid artery causing between 50 and 69% stenosis. Findings suggestive of a prior endarterectomy of the left internal carotid artery. MRI Brain: IMPRESSION: Acute right MCA infarct Barium Swallow: RECOMMENDATIONS: DIET TEXTURE RECOMMENDATIONS: Will recommend a puree textured, honey liquid diet. COMPENSATORY STRATEGIES RECOMMENDED: Supervision, decreased bolus size, slow rate, only eat when alert, cue for double swallow if patient coughs or c/o tickling sensation, seated upright at 90 degrees during PO intake, remain upright for 30-60 minutes post meal (GERD precaution), and medications with applesauce. Repeat MBS * Would strongly discourage advancement past honey thickened liquids without completion of a repeat modified barium swallow study due to the extent of aspirate identified that was SILENT in nature. 4-6 weeks. [place] Protocol (FFWP) Would consider implementation of the [place] Protocol (FFWP) following patient and family education at next level of care given adequate supervision. Treatment considerations: Patient requires intensive skilled speech-language intervention targeting continued diet texture management, training and implementation of recommended compensatory strategies, and training and implementation of oropharyngeal strengthening exercises to facilitate improved oropharyngeal strength and coordination. ADDITIONAL COMMENTS/RECOMMENDATIONS: Results and recommendations were discussed with the patient immediately following MBS completion, with the patient verbalizing understanding and agreement with all recommendations and education provided. Consults: Neurology Operations: None Procedures: 2-D Echocardiogram - Interpretation Summary Normal LV size. Mild concentric left ventricular hypertrophy. Left ventricular systolic function is normal. The estimated ejection fraction is 60 %. Transmitral and pulmonary ve nous doppler flow suggestive of impaired relaxation of left ventricle Transmitral diastolic flow velocities suggest mild (stage 1) diastolic dysfunction (reversed pattern). Summary of Care Provided: HPI: The patient is a 82 year old M with a PMH as above presents after being found down by his daughter this morning. Per him and the family, he was last seen to be normal last night around 2330 when he went to bed. He states that he thinks he got up to go to the bathroom and then the next thing he knew, he was on the ground and could not get up. He denies LOC or head traum but is unsure of how long he was on the floor for. He daughter, who lives with him found him this morning when she got up to go to the bathroom. She and her tried to get him up but could not and when they noticed him slurring his speech, they decided to call EMS. on arrival to the ER, he was evaluated and found to be out of the tPA window, MRI and CTA demonstrates a right MCA territory stroke and a R ICA stenosis of 50 to 69%, his left ICA appears to have been repaired. Vital Signs - 24 hr Temp Pulse Resp BP Pulse Ox 03/01/18 14:45 98.4 F 59 L 20 H 164/78 H 95 03/01/18 11:00 57 L 03/01/18 08:49 60 03/01/18 08:45 98.0 F 60 16 166/69 H 98 03/01/18 07:06 91 03/01/18 07:00 54 L 03/01/18 03:00 55 L 03/01/18 02:30 97.9 F 59 L 20 H 168/76 H 95 02/28/18 23:15 98.2 F 54 L 18 146/75 H 96 02/28/18 23:00 59 L 02/28/18 21:24 63 165/82 H 02/28/18 21:20 98.4 F 63 18 165/82 H 96 02/28/18 20:15 98.5 F 57 L 18 155/71 H 97 02/28/18 19:03 64 General: Alert, Oriented x3, Cooperative, No apparent distress HEENT: Atraumatic, EOMI, Normocephalic Oral: Dry Mucosa Neck: Supple, No JVD Lungs: Clear to auscultation, Normal air movement, No rhonchi, No wheeze, No rales Cardiovascular: Regular rate, regular Rhythm, Normal S1, Normal S2, No murmurs Abdomen: Soft, Non Tender, Non-Distended, No Hepato-splenomegaly Extremities: No edema, Capillary Refill Less than 3 Seconds Skin: No rashes, No breakdown Musculoskeletal: No Tenderness to Palpation of Joints or Extremities Neurological: Sensory exam intact to light touch and pain, continued left sided deficits Hospital Course: 1. R MCA CVA/HLD/HTN/CAD/New onset a-fib/rhabdo - Mr. Interiano presented with mostly LUE weakness and dysarthria. He was found to have a R MCA stroke and was started on plavix in combination with his aspirin. His Lipitor dose was also increased to 40 mg from 20 mg. He worked with PT/OT who recommended further rehab and he was to be discharged to inpatient rehab when cleared. During his stay, he was monitored on telemetry and was found to have an irregular rhythm. EKG demonstrated a new-onset afib. He was started on a cardizem drip and then transitioned to metoprolol when he was able to take PO again. After, a day on the metoprolol, he converted to normal sinus. Given that fact that his CHADS- Vasc score is at least a 5, he will need to be started on anticoagulation on sunday with eliquis, at which point he will be taken off of one of his antiplatelet medications. During his admission his Total CK was elevated because he was laying on the floor for hours prior to presenting to the ER which is where his troponin was likely elevated from. His renal function did return to baseline. 2. Tobacco abuse - He states that he will quit smoking and he was provided with a nicotine patch which he will continue at the rehab. Call your doctor if you observe: Shortness of breath, Dizziness, Chest pain, Increased palpitations (irregular heartbeat) Home Medications: Medications to take at Discharge aspirin 81 mg tablet,delayed release 81 mg PO DAILY 0 Days 04/30/17 metoprolol tartrate 50 mg tablet 50 mg PO BID #180 tab 02/11/18 Atorvastatin Calcium [Lipitor] 40 mg PO QHS tablet 03/01/18 Clopidogrel Bisulfate [Plavix] 75 mg PO DAILY tablet 03/01/18 Nicotine [Nicoderm] 14 mg TRANSDERM. DAILY patch 03/01/18 Primary Care Physician: Derek Singh Chi, MD [Primary Care Provider] - Please follow up with your Primary Care Physician in: in 3-5 days Disposition: Inpt Rehab Unit/Facility Minutes spent on discharge:: 35 Patient Condition:: Good Medical Necessity - Tobacco Use Smoking Status: Current some day smoker Tobacco Use: Cigarettes, Cigars Meaningful Use Info Meaningful Use Diagnoses (Choose all that apply): Ischemic CVA - CVA Therapy Assessed for PT,OT and/or ST?: Yes - Ischemic Stroke Antithrombotic order at d/c?: Yes Dx of Atrial fib/flutter?: Yes Anticoagulant at discharge?: Yes Statins at discharge?: Yes Primary Dx Acute Ischemic CVA?: Yes IV tPA ordered during stay?: No Reason IV t-PA not ordered: Treatment not Indicated Code Visit Inpatient E&M: 19058 Disch Hosp
--- NOTE | 2018-03-01 16:35 | NURSING ---
REPORT CALLED TO MARY ANN CAMERON IN INPT REHAB
== END 2018-03-01 16:47 | DRG 66 ==
LOC: ED 08:52 → PCU 10:20
PROVIDERS: Admitting Provider Family Medicine; Emergency Provider Emergency Medicine; Family Provider Family Medicine Geriatric Medicine; PCP Family Medicine Geriatric Medicine; Visit Provider Family Medicine
DX: I63.511 Cerebral infarction due to unspecified occlusion or stenosis of right middle cerebral artery (principal); R47.1 Dysarthria and anarthria; R29.810 Facial weakness; R29.706 NIHSS score 6; Z23 Encounter for immunization; I10 Essential (primary) hypertension; E78.5 Hyperlipidemia, unspecified; I25.10 Atherosclerotic heart disease of native coronary artery without angina pectoris; I65.21 Occlusion and stenosis of right carotid artery; I48.91 Unspecified atrial fibrillation; F17.210 Nicotine dependence, cigarettes, uncomplicated; G83.24 Monoplegia of upper limb affecting left nondominant side; R13.10 Dysphagia, unspecified
CPT/HCPCS: 36415; 70450; 70496; 70498; 70551; 71045; 74230; 80048; 80061; 82550; 82607; 82746; 82962; 84484; 85025; 85610; 85730; 92523; 92526; 92611; 93005; 93306; 97162; 97165; 97530; 97535; 99285; 99406; J7030; Q9967; 90686; A4216

== ENCOUNTER 2018-03-01 16:50 | Inpatient (IN) | payer MEDICARE, SELFPAY ==
[2018-03-01 17:41] VITALS: BP 178/80; PULSE 56; RESP 18; TEMP 36.6; O2SAT 95; BMI 29.5
[2018-03-01 18:33] VITALS: BP 150/73
--- NOTE | 2018-03-01 19:15 | NURSING ---
PT C/O FRONTAL HEADACHE AFTER USING BSC. DENIES ANY OTHER PAIN OR VISUAL DISTURBANCE. A/0 X 3. SPEECH IS CLEAR AND APPROPRIATE. RETURNED TP RECLINER CHAIR PER REQUEST.
--- NOTE | 2018-03-01 19:30 | NURSING ---
PT DOZING IN RECLINER. WAKENS EASILY TO VOICE. CONTINUES T HAVE FRONTAL POST RATED # 5. MEDICATED.
[2018-03-01] MEDS: Acetaminophen 325 MG Tablet 650 MG PO (19:33)
[2018-03-01 20:48] VITALS: BP 182/82; PULSE 60; RESP 20; TEMP 36.4; O2SAT 96
[2018-03-01] MEDS: LORazepam 0.5 MG Tablet PO (20:51)
[2018-03-01] MEDS: Hydrocortisone 2.5% Crm 1 APPLIC TOPICAL (20:51)
[2018-03-01 20:52] VITALS: BP 182/82; PULSE 60
[2018-03-01] MEDS: Senna/Docusate Sodium 1 Tablet 2 TABLET PO (20:52)
[2018-03-01] MEDS: Metoprolol Tartrate 50 MG Tablet PO (20:52)
[2018-03-01] MEDS: Atorvastatin Calcium 40 MG Tablet PO (21:05)
[2018-03-02] VITALS (8 sets, daily range): BP systolic 158–199; BP diastolic 72–87; PULSE 58–59; RESP 16; TEMP 36.5–36.9; O2SAT 96–98
--- NOTE | 2018-03-02 00:05 | NURSING ---
PT WAKES TO USE URINAL. REPORTS TO HAVE FRONTAL POST RATED#7. REPORTS TO FEEL WELL OTHERWISE. SPEECH REMAINS CLEAR AND APPROPRIATE.
[2018-03-02] MEDS: Acetaminophen 325 MG Tablet 650 MG PO ×3 (00:06→19:54)
--- NOTE | 2018-03-02 00:20 | NURSING ---
PT RESTING WITH EYES CLOSED. WAKENS EASILY TO VERBAL STIMULI. STATES HE IS PAIN FREE. PT WOULD LIKE ANOTHER SLEEPING PILL.
[2018-03-02] MEDS: LORazepam 0.5 MG Tablet PO ×2 (00:24→22:33)
--- NOTE | 2018-03-02 01:05 | NURSING ---
PT RESTING WITH EYES CLOSED.
--- NOTE | 2018-03-02 06:15 | NURSING ---
PT AWAKE. VITAL OBTAINED. BP ELEVATED. PT STATES HE BEGAN WITH A FRONTAL POST ABOUT 30 MINUTES AGO AND RATES IT #10. NO OTHER NEURO CHANGES NOTED AT THIS TIME. PAGE PLACED TO DR KOLB BY NEURO ANSWERING SERVICE.
--- NOTE | 2018-03-02 06:44 | NURSING ---
SECOND PAGE PLACED TO DR KOLB BY NEURO ANSWERING SERVICE.
--- NOTE | 2018-03-02 06:45 | NURSING ---
DR KOLB PHONES INTO UNIT AND INFORMED THAT PT HAS ELEVATED BP AND POST RATED #10 AND NO OTHER NEURO CHANGES NOTED. ORDERS GIVEN.
--- NOTE | 2018-03-02 06:46 | CT_ITS ---
STUDY: CT BRAIN WITHOUT CONTRAST REASON FOR EXAM: Male, 82 years old. Severe headache, elevated blood pressure. CVA. RADIATION DOSAGE (If Supplied By Facility): CTDIvol = ( 44.99 ) mGy, DLP = ( 866.41 ) mGycm TECHNIQUE: Transaxial CT imaging of the brain was performed without administration of intravenous contrast material. Individualized dose optimization techniques were used for this CT. COMPARISON: MRA brain: 02/25/[address] brain: 02/25/2018 FINDINGS: Normal soft tissue structures. Normal calvarium. There is moderate cerebral atrophy with widening of the extra-axial spaces and ventricular dilatation. Ill-defined focal zone with decreased attenuation demonstrated in the right insula, rodríguez radiata and right lentiform nucleus, consistent with subacute infarction in the right MCA territory. There are areas of decreased attenuation within the white matter tracts of the supratentorial brain, consistent with microvascular disease changes. There are small punctate calcifications of the basal ganglia which are seen in the aging brain as a normal variant. There is no acute abnormality of the brainstem. There is mild cerebellar atrophy. There is no intracranial hemorrhage. . Atherosclerotic calcification of the cavernous ICAs. There is mucoperiosteal inflammatory disease of the paranasal sinuses consistent with mild chronic sinusitis. CT/Brain/Head without Contrast IMPRESSION: 1. Subacute right MCA infarct. 2. Chronic involutional changes of the brain. Electronically Signed: Robbie Rich MD at 11:15 EDT Tel , Service support ,
--- NOTE | 2018-03-02 06:50 | NURSING ---
PT TAKEN TO CT VIA CART WITH SPORTS BOOK BOARD ATTENDANT.
--- NOTE | 2018-03-02 07:10 | NURSING ---
RETURNED FROM CT. REPORTS POST IS #8. PLACED IN RECLINER IN DINING ROOM. SPEECH REMAINS CLEAR AND APPROPRIATE.
[2018-03-02 07:20] LABS: Hemoglobin 12.7 g/dl (13.0-16.5); Mean Corp Hgb Conc 34.3 g/gl (32-36); Mean Corpuscular Hgb 34.6 pg (27.0-32.0); Mean Corpuscular Volume 100.8 fL (80-94); Mean Platelet Vol. 9.8 fl (6.2-12.0); Platelet Count 204 K/mm3 (150-450); RBC Distribution Width CV 13.5 % (11.6-14.6); RBC Distribution Width SD 48.2 fl (35.1-43.9); Red Blood Count 3.67 M/mm3 (4.6-6.2); White Blood Count 4.9 K/mm3 (4.4-11.0)
[2018-03-02 07:24] LABS: Scan Indicated on CBC? Y/N NO
[2018-03-02] MEDS: amLODIPine 5 MG Tablet PO (07:36)
[2018-03-02] MEDS: Metoprolol Tartrate 50 MG Tablet PO ×2 (07:36→19:53)
[2018-03-02] MEDS: Hydrocortisone 2.5% Crm 1 APPLIC TOPICAL ×2 (07:38→22:33)
[2018-03-02 07:45] LABS: Anion Gap 7 (5-15); BUN 8 mg/dL (7-18); BUN/Creat Ratio 11.1 RATIO (10-20); Calcium,Total 8.2 mg/dL (8.5-10.1); Chloride 112 mmol/L (98-107); Creatinine, Serum 0.72 mg/dL (0.70-1.30); EST Glomerular Filtration Rate 111 mL/min (>60); Est Glom Filt Rate - Afr Amer 134 mL/min (>60); Estimated Creatinine Clearance 54.15 ml/min; Glucose 85 mg/dL (74-106); Potassium 3.5 mmol/L (3.5-5.1); Sodium Level 145 mmol/L (136-145)
--- NOTE | 2018-03-02 09:26 | NURSING ---
Dr. Hernandez called aware of CT scan results, new order for Elavil 25 po qHS, nystatin x7 days for coated tongue. Ok to give lovenox this morning.
--- NOTE | 2018-03-02 09:30 | NURSING ---
Per. Dr. Hernandez pt ok to do PT.
[2018-03-02] MEDS: Enoxaparin 40 MG/0.4 ML Syringe SC (09:37)
[2018-03-02] MEDS: Aspirin E.C. 81 MG Tablet PO (09:37)
[2018-03-02] MEDS: Clopidogrel Bisulfate 75 MG Tablet PO (09:37)
[2018-03-02] MEDS: NYSTATIN 500,000 UNIT/5 ML UDC 500000 UNIT PO ×4 (11:46→19:53)
--- NOTE | 2018-03-02 12:40 | CON.PCM_ITS ---
Problem List (1) CVA (cerebral vascular accident) Status: Acute (2) CAD (coronary artery disease) Status: Chronic Qualifiers: (3) Carotid arterial disease Status: Chronic (4) Hyperlipidemia Status: Chronic Qualifiers: (5) HTN (hypertension), benign Status: Chronic Reason for Consult Date of Consultation: 03/02/18 Reason for Consultation: Medical Management History of Present Illness: Mr. Interiano presented with mostly LUE weakness and dysarthria. He was found to have a R MCA stroke and was started on plavix in combination with his aspirin. His Lipitor dose was also increased to 40 mg from 20 mg. He worked with PT/OT who recommended further rehab and he was to be discharged to inpatient rehab when cleared. During his stay, he was monitored on telemetry and was found to have an irregular rhythm. EKG demonstrated a new-onset afib. He was started on a cardizem drip and then transitioned to metoprolol when he was able to take PO again. After, a day on the metoprolol, he converted to normal sinus. Given that fact that his CHADS-Vasc score is at least a 5, he will need to be started on anticoagulation on sunday with eliquis, at which point he will be taken off of one of his antiplatelet medications. During his admission his Total CK was elevated because he was laying on the floor for hours prior to presenting to the ER which is where his troponin was likely elevated from. His renal function did return to baseline. Please refer to his admission HPI for further details. This morning her woke up with a headache and was found to be significantly hypertensive to 188. A CT head was obtained which was normal. He states that it has improved somewhat today. 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) HTN (hypertension), benign (Chronic) Medical History: Medical History (Last Reviewed 02/25/18 @ 11:10 by Timothy Hernandez MD) CAD (coronary artery disease) (Chronic) I25.10 Carotid arterial disease (Chronic) I77.9 Hyperlipidemia (Chronic) E78.5 [facility] current use of therapeutic drug (Chronic) Z79.899 HTN (hypertension), benign (Chronic) I10 Carotid stenosis I65.29 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 DAILY 03/01/18 Surgical History: Surgical History (Last Reviewed 02/25/18 @ 11:10 by Timothy Hernandez MD) H/O carotid endarterectomy Onset Date: ~07/2010 Z98.890 History of appendectomy Z90.49 History of bilateral knee replacement Onset Date: ~2007 Z96.653 Hx of tonsillectomy Z90.89 Smoking Status: Current some day smoker Tobacco Use: Cigarettes Alcohol: None Drugs: None - *Family History Maternal Family History: Family History (Last Reviewed 05/01/17 @ 10:05 by Shade Mcmanus MD) Other CAD (coronary artery disease) Heart disease Hypertension History Items: No pertinent history Review of Systems Constitutional: Denies: Chills, Fever, Weight Change HEENT: Reports: Head Aches. Denies: Sinus Congestion, Sinus Drainage Cardiovascular: Denies: Chest Pain, Palpitations Respiratory: Denies: Cough, Shortness of breath at rest, Sputum production Gastrointestinal: Denies: Abdominal Pain, Nausea, Vomiting Genitourinary: Denies: Dysuria Musculoskeletal: Denies: Joint Pain, Joint Tenderness Skin: Denies: Rash, Wounds Neurological: Reports: Focal weakness, Headaches. Denies: Numbness, Tingling Psychiatric: Denies: Anxiety, Depression Hematologic/ Lymphatic: Denies: Easy Bruising, Easy Bleeding Objective: General: Alert, Oriented x3, Cooperative, No apparent distress HEENT: Atraumatic, EOMI, Normocephalic Oral: Dry Mucosa Neck: Supple, No JVD Lungs: Clear to auscultation, Normal air movement, No rhonchi, No wheeze, No rales Cardiovascular: Regular rate, regular Rhythm, Normal S1, Normal S2, No murmurs Abdomen: Soft, Non Tender, Non-Distended, No Hepato-splenomegaly Extremities: No edema, Capillary Refill Less than 3 Seconds Skin: No rashes, No breakdown Musculoskeletal: No Tenderness to Palpation of Joints or Extremities Neurological: Sensory exam intact to light touch and pain, continued left sided deficits - Physical Exam Vital Signs Temp Pulse Resp BP Pulse Ox 98.4 F 58 L 16 159/72 H 97 03/02/18 06:21 03/02/18 08:11 03/02/18 08:11 03/02/18 08:11 03/02/18 08:11 Oxygen Delivery Method Room Air Weight: 193 lb 12.581 oz Body Mass Index (BMI) 29.5 Finger Stick Blood Glucose 114 Intake and Output for Last 24 Hours 02/28/18 03/01/18 03/02/18 23:59 23:59 23:59 Output Total 425 / 425 175 / 175 Balance -425 / -425 -175 / -175 Laboratory Tests Past 24 Hrs 03/02/18 03/02/18 06:48 06:48 WBC 4.9 RBC 3.67 L Hgb 12.7 L Hct 37.0 L MCV 100.8 H MCH 34.6 H MCHC 34.3 RDW 13.5 RDW Differential 48.2 H Plt Count 204 MPV 9.8 Sodium 145 Potassium 3.5 Chloride 112 H Carbon Dioxide 26.0 Anion Gap 7 BUN 8 Creatinine 0.72 Estim Creat Clear Calc 54.15 Est GFR (MDRD) Af Amer 134 Est GFR (MDRD) Non-Af 111 BUN/Creatinine Ratio 11.1 Glucose 85 Calcium 8.2 L Assessment/Plan All Active Problems (Last Reviewed 02/25/18 @ 11:10 by Timothy Hernandez MD) CVA (cerebral vascular accident) (Acute) 1. R MCA CVA/HLD/HTN/CAD/New onset a-fib - Presenting with dysarthria, loss of L CNXI, LUE weakness - He will need to be anticoagulated with plavix and eliquis once stroke is stable will plan to start on sunday - Statin 40 mg daily - c/w inpatient rehab - CHADS-Vasc of 5 - C/w home metoprolol, and norvasc. Will add lisinopril 20 mg and plan for a f/u BMP in 1-2 weeks evaluation of renal function - CT head negative today 2. Tobacco use - discussed at length that he needs to quit - c/w nicotine patch DVT: Lovenox Diet: Puree with honey thick Code Visit Inpatient E&M: 39728 Subs Hosp L3
--- NOTE | 2018-03-02 15:25 | HP.PCM_ITS ---
History of Present Illness Date of Admission: 03/02/18 Chief Complaint: cva The patient is a 82 year old right-handed white male with a past medical history of hypertension, hyperlipidemia, and tobacco use, who presents to the rehab unit for rehabilitation 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 He initially presented to the emergency department with a last known well at 11:30 PM prior to the day of of admission presented to the emergency department after his family discovered that he had left-sided weakness this morning. Stroke team was called. He was outside of the window for TPA. Because of the delay in presentation possible intervention was discussed with [facility] neuro interventionalists and it was felt to be outside of the window for any intervention so he was treated conservatively. He was discovered to have new onset atrial fibrillation. He now presents to the rehab unit for rehabilitation in order to return home. He previously lived at home independently. 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 DAILY 03/01/18 Surgical History: Surgical History (Last Reviewed 03/02/18 @ 15:28 by Timothy Hernandez MD) H/O carotid endarterectomy Onset Date: ~07/2010 Z98.890 History of appendectomy Z90.49 History of bilateral knee replacement Onset Date: ~2007 Z96.653 Hx of tonsillectomy Z90.89 Smoking Status: Current some day smoker Tobacco Use: Cigarettes Alcohol: None Drugs: None - *Family History Maternal Family History: Family History (Last Reviewed 05/01/17 @ 10:05 by Shade Mcmanus MD) Other CAD (coronary artery disease) Heart disease Hypertension History Items: No pertinent history Review of Systems Constitutional: Denies: Chills, Fever, Weight Change HEENT: Denies: Head Aches, Sinus Congestion, Sinus Drainage Cardiovascular: Denies: Chest Pain, Palpitations Respiratory: Denies: Cough, Shortness of breath at rest, Sputum production Gastrointestinal: Denies: Abdominal Pain, Nausea, Vomiting Genitourinary: Denies: Dysuria Musculoskeletal: Denies: Joint Pain, Joint Tenderness Skin: Denies: Rash, Wounds Neurological: Denies: Numbness, Tingling, Focal weakness Psychiatric: Denies: Anxiety, Depression, Homicidal Ideations, Suicidal Ideations Hematologic/ Lymphatic: Denies: Easy Bruising, Easy Bleeding VTE Information - Inpt Only VTE Present on Admission: Yes VTE Pharm Prophylaxis ordered?: Yes - Physical Exam General: Alert, Oriented x3, Cooperative, No apparent distress HEENT: Atraumatic, PERRLA, EOMI Neurological: - - Logic examination he has dysarthria, left central 7, dysp hagia, and left upper and left lower extremity weakness but sensation is intact. He is able to hold his left arm up but drifts to the bed within 10 seconds. His leg is stronger but still drifts. Height is normal. Vital Signs Temp Pulse Resp BP Pulse Ox 36.9 C 58 L 16 159/72 H 97 03/02/18 06:21 03/02/18 08:11 03/02/18 08:11 03/02/18 08:11 03/02/18 08:11 Oxygen Delivery Method Room Air Weight: 87.9 kg Body Mass Index (BMI) 29.5 Finger Stick Blood Glucose 114 Intake and Output for Last 24 Hours 02/28/18 03/01/18 03/02/18 23:59 23:59 23:59 Output Total 425 / 425 175 / 175 Balance -425 / -425 -175 / -175 Laboratory Tests Past 24 Hrs 03/02/18 03/02/18 06:48 06:48 WBC 4.9 RBC 3.67 L Hgb 12.7 L Hct 37.0 L MCV 100.8 H MCH 34.6 H MCHC 34.3 RDW 13.5 RDW Differential 48.2 H Plt Count 204 MPV 9.8 Sodium 145 Potassium 3.5 Chloride 112 H Carbon Dioxide 26.0 Anion Gap 7 BUN 8 Creatinine 0.72 Estim Creat Clear Calc 54.15 Est GFR (MDRD) Af Amer 134 Est GFR (MDRD) Non-Af 111 BUN/Creatinine Ratio 11.1 Glucose 85 Calcium 8.2 L Assessment/Plan All Active Problems (Last Reviewed 02/25/18 @ 11:10 by Timothy Hernandez MD) CVA (cerebral vascular accident) (Acute) Early status post right MCA distribution infarct. New onset atrial fibrillation. Goal of rehab is yazidism of prior level of functional independence * Therapy for gait and balance * Occupational Therapy for ADLs * Speech therapy * Pur?ed with honey thickened liquids * Elavil at bedtime in addition to as needed Ativan * Bowel protocol * DVT prophylaxis * Initiate Eliquis 5 mg twice daily * PRN analgesics
--- NOTE | 2018-03-02 15:32 | REHABEVAL_ITS ---
Admission Information Status Changes from Prescreening?: No changes Identified Actual Problem List:: Alteration in Sleep, Alteration in Nutrition, Mobility Impaired, Self Care Deficit, BP, Hypertension, Ineffect.D/C Plan r/t Psy Potential Problem List:: DVT, Bleeding, Infection, UTI, Aspiration, Falls, Skin Integrity, Depression Risk of Complications DVT: LMWH, MAGUI Hose, Sequential Compression Device Bleeding: Monitor Lab Values, Nursing to Teach Precautions for anti-coagulation therapy., Wound, if applicable, to be assessed every shift., Stroke patients assessed for lethargy or change in status. Infection: Clinical Staff to Monitor for S/S of infection:, S/S of infection include fever, redness, warmth, etc. Urinary Tract Infection: Monitor for frequency, burning, discomfort, or incontinence., Nursing will obtain urine sample for urinalysis and C&S when ordered. Aspiration: Clinical staff will monitor for coughing, drooling, congestion., Speech will evaluate swallowing and dsyphasia., Nursing will monitor patient swallowing during meals. Falls: Patient will be evaluated for Fall Precautions, Patient will be placed on Fall Precautions as indicated per protocol. Skin Breakdown: Nursing will assess skin daily using assessment tool., Nursing will place on Skin Breakdown Precautions as indicated. Pain: Clinical staff will assess patient's pain level per protocol., Medications will be given, if needed, and the pain level reassessed., Other methods: Massage, distraction, decrease stimulus, etc. used PRN. Plan of Care Patient requires physician specializing in physical medicine and rehab oversight to provide close medical supervision of rehab issues including: Pain Management, Sleep Problems, Bowel and Bladder, Medical and co-morbidity Management, DVT prophylaxis, Rehabilitation Leadership, Coordination of treatment team Patient needs Physical Therapy: For a minimum of 1 hour, At least 5 out of 7 days Patient needs Physical Therapy to improve:: Mobility, Mobility, Mobility, Strengthening, Transfers, Stretching, ROM, Endurance, Stairs, Gait, Balance Patient needs Occupational Therapy: For a minimum of 1 hour, At least 5 out of 7 days Patient needs Occupational Therapy to improve ADL's incl.: Eating, Grooming, Bathing, Dressing, Toileting, Toilet transfers, Community Reintegration, Higher functioning activities, Household tasks, Adaptive Equipment, Splinting, Other activities as determined Patient requires speech therapy: For a minimum of 1 hour, At least 5 out of 7 days Patient requires speech therapy for: Swallowing, Cognition, Language Skills, Compensatory Strategies Patient requires 24/ Rehabilitation Nursing for: Pain Issues, Identifying and preventing risk factors, Monitoring and reporting current medical conditions, Assisting with ambulation, transfer, and all ADL's, Teaching patients about disease process and medications, Family teaching, Providing safe environment, Bowel and Bladder Issues, Skin integrity, Medication Management Patient needs Telephone Ad Taker/ Case Management for: Discharge Planning, Arranging Home Equipment or Services, Family Interventions Patient needs Dietary and Nutrition Services for: Adequate Nutrition, Nutritional Supplements, Nutritional Education Goals Patient will remain: free from falls, or injury at time of discharge. Patient will perform bed mobility at: MOD I level of assist. Patient will complete transfers from bed to chair at: MOD I level of assist. Patient will ambulate: 100 feet, with MOD I assist, with LRD Patient will complete upper body dressing at: MOD I level of assist. Patient will complete lower body dressing at: MOD I level of assist. Patient will complete toileting at: MOD I level of assist. Patient will perform bathing at: MOD I level of assist. Patient will complete grooming at: MOD I level of assist. Patient will complete home management skills at: MOD I level of assist. Patient will achieve: 12 stairs, at MOD I assist Patient will have pain level of: of 3 or less Patient's skin will: remain intact, free from infection. Patient will receive: adequate nutrition. Discharge Planning Pt Prognosis for Sig. Practical Improv. w/in Reasonable Time: Good Anticipated D/C Destination: Home with Outpt Therapy Was Preadmission Assessment Accurate?: Yes
--- NOTE | 2018-03-02 16:49 | NURSING ---
Clarified order with Dr. Hernandez per H&P on initiating Eliquis 5mg BID. Per Dr. Hernandez he wants to wait at least 5 days before doing so.
[2018-03-02] MEDS: Senna/Docusate Sodium 1 Tablet 2 TABLET PO (19:53)
[2018-03-02] MEDS: Atorvastatin Calcium 20 MG Tablet 40 MG PO (19:53)
[2018-03-02] MEDS: Amitriptyline 25 MG Tablet PO (19:54)
--- NOTE | 2018-03-02 22:36 | NURSING ---
Found with laceration on left arm - pt caught on small switch on inside of chair. Area cleansed with ns and dsd applied followed by kerlix.
[2018-03-03] VITALS (7 sets, daily range): BP systolic 131–161; BP diastolic 55–76; PULSE 56–60; RESP 18; TEMP 36.8; O2SAT 94
[2018-03-03] MEDS: LORazepam 0.5 MG Tablet PO ×3 (00:01→23:24)
[2018-03-03] MEDS: Acetaminophen 325 MG Tablet 650 MG PO ×2 (00:18→06:26)
--- NOTE | 2018-03-03 01:51 | PCM.PN.BLA ---
Progress Note Notified by nursing staff the patient is having been reviewed with urination and hematuria. Patient on aspirin Plavix and Lovenox; awaiting oral direct anticoagulation therapy. UA C&S ordered. Lovenox discontinued. Nursing staff to notify neurology in a.m for further determination of Lovenox therapy. ASA and plavix continued
--- NOTE | 2018-03-03 02:16 | NURSING ---
Straight cathed for urine speiciman for ua/cs
[2018-03-03 02:59] LABS: Bacteria 0 SEEN /hpf (None Seen); Mucous, Urine 0 SEEN /hpf (<or=2+); Red Blood Cells-Urine 0 SEEN /hpf (0-5); Squamous Epithelial Cells - UA 0 SEEN /hpf (0-5); White Blood Cells 0 SEEN /hpf (0-5)
[2018-03-03 03:02] LABS: Color, Urine Straw (Yellow); Glucose, Dipstick Normal (Normal); Ketone-Dipstick Negative (Negative); Leukocyte Esterase-Dipstick Negative /ul (Negative); Nitrite-Dipstick Negative (Negative); Occult Blood-Urine 10 /ul (Negative); Protein-Dipstick Negative (Negative); Specific Gravity, Urine 1.015 (1.002-1.030); Urine Bilirubin Dipstick Negative (Negative); Urine Clarity Clear (Clear); Urine Urobilinogen Normal (Normal)
[2018-03-03] MEDS: Hydrocortisone 2.5% Crm 1 APPLIC TOPICAL ×2 (06:23→20:19)
[2018-03-03] MEDS: Senna/Docusate Sodium 1 Tablet 2 TABLET PO ×2 (08:27→20:21)
[2018-03-03] MEDS: Metoprolol Tartrate 50 MG Tablet PO ×2 (08:27→20:20)
[2018-03-03] MEDS: Clopidogrel Bisulfate 75 MG Tablet PO (08:27)
[2018-03-03] MEDS: Lisinopril 20 MG Tablet PO (08:27)
[2018-03-03] MEDS: amLODIPine 5 MG Tablet PO (08:27)
[2018-03-03] MEDS: Aspirin E.C. 81 MG Tablet PO (08:28)
[2018-03-03] MEDS: NYSTATIN 500,000 UNIT/5 ML UDC 500000 UNIT PO ×4 (08:29→20:21)
--- NOTE | 2018-03-03 09:33 | NURSING ---
Per. Dr. Hernandez restart the lovenox this morning.
[2018-03-03] MEDS: Enoxaparin 40 MG/0.4 ML Syringe SC (10:29)
--- NOTE | 2018-03-03 14:05 | NURSING ---
Pt did mouth care and suctioning, this RN painted Nystatin on tongue, pt tolerated well.
--- NOTE | 2018-03-03 14:14 | NURSING ---
RN ambulated pt with aamir walker roughly 25ft, ORACLE TECHNICAL ARCHITECT followed with wheelchair, pt tolerated well.
--- NOTE | 2018-03-03 17:25 | NURSING ---
staffed showered pt. tolerated well.
[2018-03-03] MEDS: Amitriptyline 25 MG Tablet PO (20:20)
[2018-03-03] MEDS: Atorvastatin Calcium 20 MG Tablet 40 MG PO (20:20)
[2018-03-04] VITALS (7 sets, daily range): BP systolic 125–157; BP diastolic 61–67; PULSE 54–64; RESP 16–20; TEMP 36.5–36.7; O2SAT 88–94; BMI 29.5
--- NOTE | 2018-03-04 05:23 | NURSING ---
Reviewed and agree with LPNs fims and handoff
[2018-03-04] MEDS: Acetaminophen 325 MG Tablet 650 MG PO ×2 (06:18→21:20)
[2018-03-04] MEDS: Hydrocortisone 2.5% Crm 1 APPLIC TOPICAL ×2 (06:19→21:19)
--- NOTE | 2018-03-04 06:58 | NURSING ---
Sats only 88-89% this am. Few scattered wheezes ant and post per resp therapy Bill. Resp reg, easy. Pt denies SOB. Skin warm, dry. O2 applied at 2L. Sats now 98%
[2018-03-04] MEDS: amLODIPine 5 MG Tablet PO (08:10)
[2018-03-04] MEDS: Metoprolol Tartrate 50 MG Tablet PO ×2 (08:10→21:20)
[2018-03-04] MEDS: Senna/Docusate Sodium 1 Tablet 2 TABLET PO ×2 (08:10→21:20)
[2018-03-04] MEDS: Enoxaparin 40 MG/0.4 ML Syringe SC (08:10)
[2018-03-04] MEDS: Aspirin E.C. 81 MG Tablet PO (08:10)
[2018-03-04] MEDS: Clopidogrel Bisulfate 75 MG Tablet PO (08:10)
[2018-03-04] MEDS: NYSTATIN 500,000 UNIT/5 ML UDC 500000 UNIT PO ×4 (08:11→21:20)
[2018-03-04] MEDS: Lisinopril 20 MG Tablet PO (08:13)
--- NOTE | 2018-03-04 09:21 | NURSING ---
Per dr. hand new orders. d/c plavix, start coumadin 4 mg daily, pt/inr daily, d/c lovenox once inr >2, d/c prn ativan at bedtime for insomnia d/t pt is on elavil and continue asa 81 mg. cxr pa and lat d/t rhonci tp bases and drop in spo2 sats last night now on room air. rhonci R> L bases noted and some expiratory wheezes, cough at times, non productive moist.
--- NOTE | 2018-03-04 09:50 | PCM.PN.NEU ---
Subjective: Patient seen and examined. Over the weekend the patient had some light hematuria, which has resolved. He has a moist cough, diminished lung sounds in the bases and scattered rhonchi through out, obtain CXR. INR this morning was 1.1, start Coumadin 5mg this evening continue Lovenox and ASA, until INR is 2 - 3 then d/c the Lovenox. - Physical Exam General: Alert, Oriented x3, Cooperative HEENT: Atraumatic, PERRLA, EOMI, Normocephalic Neck: Supple, No JVD, Negative Carotid Bruits Lungs: Clear to auscultation, Normal air movement Cardiovascular: Regular rate, No murmurs Abdomen: Bowel Sounds Present, Soft, Non Tender Extremities: No edema, Capillary Refill Less than 3 Seconds Skin: No rashes, No breakdown Musculoskeletal: No Tenderness to Palpation of Joints or Extremities Neurological: Cranial nerves II-XII grossly intact Psych/Mental Status: Normal Affect, Appropriate, Alert and oriented to time, place, person, mood and affect Vital Signs Temp Pulse Resp BP Pulse Ox 98.1 F 64 20 H 155/67 H 94 03/04/18 07:36 03/04/18 08:10 03/04/18 07:36 03/04/18 07:36 03/04/18 07:36 Oxygen Delivery Method Room Air Weight: 87.9 kg Body Mass Index (BMI) 29.5 Finger Stick Blood Glucose 114 Intake and Output for Last 24 Hours 03/02/18 03/03/18 03/04/18 23:59 23:59 23:59 Intake Total 600 / 600 360 / 360 Output Total 375 / 375 Balance -375 / -375 600 / 600 360 / 360 Laboratory Tests Past 24 Hrs 03/04/18 09:36 PT Pending INR Pending Active Medications Acetaminophen (Tylenol) 650 mg PO Q4H PRN PRN PRN Reason: Mild Pain (0-3/10)/Headache Last Admin: 03/04/18 06:18 Dose: 650 mg Amitriptyline HCl (Elavil) 25 mg PO QHS [facility] Last Admin: 03/03/18 20:20 Dose: 25 mg Amlodipine Besylate (Norvasc) 5 mg PO DAILY [facility] Last Admin: 03/04/18 08:10 Dose: 5 mg Aspirin (Ecotrin) 81 mg PO DAILY@0800 [facility] Last Admin: 03/04/18 08:10 Dose: 81 mg Atorvastatin Calcium (Lipitor) 40 mg PO QHS [facility] Last Admin: 03/03/18 20:20 Dose: 40 mg Bisacodyl (Dulcolax) 10 mg RECTAL .PRN X 1 PRN PRN Reason: Constipation Enoxaparin Sodium (Lovenox) 40 mg SC DAILY@0600 [facility] Hydrocortisone (Hytone) 1 applic TOPICAL 0600,2100 [facility]; Protocol Last Admin: 03/04/18 06:19 Dose: 1 applicatio Lisinopril (Zestril) 20 mg PO DAILY [facility] Last Admin: 03/04/18 08:13 Dose: 20 mg Magnesium Hydroxide (Milk Of Magnesia) 30 ml PO .PRN X 1 PRN PRN Reason: Constipation Metoprolol Tartrate (Lopressor (Beta Valeria)) 50 mg PO BID [facility] Last Admin: 03/04/18 08:10 Dose: 50 mg Nicotine (Nicoderm Cq (Pbkc)) 14 mg TRANSDERM. DAILY [facility] Last Admin: 03/04/18 08:09 Dose: 14 mg Nystatin (Nystatin) 500,000 unit PO 4X/DAY [facility] Stop: 03/09/18 10:01 Last Admin: 03/04/18 08:11 Dose: 500,000 unit Senna/Docusate Sodium (Senokot-S, Marcia-Colace) 2 tablet PO BID [facility] Last Admin: 03/04/18 08:10 Dose: 2 tablet Warfarin Sodium (Coumadin (Pbkc)) 5 mg PO DAILY@1700 [facility] Medical Necessity - Tobacco Use Smoking Status: Current some day smoker Tobacco Use: Cigarettes Assessment/Plan All Active Problems (Last Reviewed 03/02/18 @ 15:28 by Timothy Hernandez MD) CVA (cerebral vascular accident) (Acute) Debility S/P right MCA distribution infarct. Complicated by new onset atrial fibrillation. Goal of rehab is evangelical of prior level of functional independence Plan: - Therapy for gait and balance - Occupational Therapy for ADLs - Speech therapy - Diet => Pur?ed with honey thickened liquids - Insomnia => Melatonin 3mg, and Elavil an hour prior to bedtime, d/c Ativan - Bowel protocol - DVT prophylaxis => SCDs, Juancarlos hoses, Lovenox start on Coumadin 5 mg - New onset A-Fib = > INR is 1.1 - obtain Daily INRs, continue Lovenox start Coumadin 5mg once INR is 2 - 3 d/c Lovenox. - PRN analgesics - Moist cough, with diminished breath sounds in the bases, with scattered Rhonchi through out => Obtain CXR
[2018-03-04 09:51] LABS: International Normalized Ratio 1.1
--- NOTE | 2018-03-04 10:00 | RAD_ITS ---
STUDY: X-RAY CHEST REASON FOR EXAM: Male, 82 years old. Cough. Abnormal lung sounds. TECHNIQUE: Frontal and lateral views of the chest. COMPARISON: February 25, 2018 FINDINGS: There is low volume inspiration with a mild diffuse interstitial pattern unchanged. There is no demonstrated pleural abnormality. There is stable cardiomegaly. Normal mediastinum and binu. Normal visualized pulmonary arteries. There is aortic tortuosity with calcification unchanged. There are diffuse degenerative changes of the visualized thoracic spine. Normal visualized ribs, clavicles, and shoulders. There is no demonstrated abnormality of the visualized soft tissue structures of the upper abdomen. RAD/Chest PA and Lateral IMPRESSION: Stable appearance of the chest with no new or acute pathology. Electronically Signed: Jignesh Head MD at 13:10 EDT , Service support ,
--- NOTE | 2018-03-04 10:02 | PN.NEURO_ITS ---
Subjective: Patient seen and examined. Over the weekend the patient had some light hematuria, which has resolved. He has a moist cough, diminished lung sounds in the bases and scattered rhonchi through out, obtain CXR. INR this morning was 1.1, start Coumadin 5mg this evening continue Lovenox and ASA, until INR is 2 - 3 then d/c the Lovenox. - Physical Exam General: Alert, Oriented x3, Cooperative HEENT: Atraumatic, PERRLA, EOMI, Normocephalic Neck: Supple, No JVD, Negative Carotid Bruits Lungs: Clear to auscultation, Normal air movement Cardiovascular: Regular rate, No murmurs Abdomen: Bowel Sounds Present, Soft, Non Tender Extremities: No edema, Capillary Refill Less than 3 Seconds Skin: No rashes, No breakdown Musculoskeletal: No Tenderness to Palpation of Joints or Extremities Neurological: Cranial nerves II-XII grossly intact Psych/Mental Status: Normal Affect, Appropriate, Alert and oriented to time, place, person, mood and affect Vital Signs Temp Pulse Resp BP Pulse Ox 98.1 F 64 20 H 155/67 H 94 03/04/18 07:36 03/04/18 08:10 03/04/18 07:36 03/04/18 07:36 03/04/18 07:36 Oxygen Delivery Method Room Air Weight: 87.9 kg Body Mass Index (BMI) 29.5 Finger Stick Blood Glucose 114 Intake and Output for Last 24 Hours 03/02/18 03/03/18 03/04/18 23:59 23:59 23:59 Intake Total 600 / 600 360 / 360 Output Total 375 / 375 Balance -375 / -375 600 / 600 360 / 360 Laboratory Tests Past 24 Hrs 03/04/18 09:36 PT Pending INR Pending Active Medications Acetaminophen (Tylenol) 650 mg PO Q4H PRN PRN PRN Reason: Mild Pain (0-3/10)/Headache Last Admin: 03/04/18 06:18 Dose: 650 mg Amitriptyline HCl (Elavil) 25 mg PO QHS [facility] Last Admin: 03/03/18 20:20 Dose: 25 mg Amlodipine Besylate (Norvasc) 5 mg PO DAILY [facility] Last Admin: 03/04/18 08:10 Dose: 5 mg Aspirin (Ecotrin) 81 mg PO DAILY@0800 [facility] Last Admin: 03/04/18 08:10 Dose: 81 mg Atorvastatin Calcium (Lipitor) 40 mg PO QHS [facility] Last Admin: 03/03/18 20:20 Dose: 40 mg Bisacodyl (Dulcolax) 10 mg RECTAL .PRN X 1 PRN PRN Reason: Constipation Enoxaparin Sodium (Lovenox) 40 mg SC DAILY@0600 [facility] Hydrocortisone (Hytone) 1 applic TOPICAL 0600,2100 [facility]; Protocol Last Admin: 03/04/18 06:19 Dose: 1 applicatio Lisinopril (Zestril) 20 mg PO DAILY [facility] Last Admin: 03/04/18 08:13 Dose: 20 mg Magnesium Hydroxide (Milk Of Magnesia) 30 ml PO .PRN X 1 PRN PRN Reason: Constipation Metoprolol Tartrate (Lopressor (Beta Valeria)) 50 mg PO BID [facility] Last Admin: 03/04/18 08:10 Dose: 50 mg Nicotine (Nicoderm Cq (Pbkc)) 14 mg TRANSDERM. DAILY [facility] Last Admin: 03/04/18 08:09 Dose: 14 mg Nystatin (Nystatin) 500,000 unit PO 4X/DAY [facility] Stop: 03/09/18 10:01 Last Admin: 03/04/18 08:11 Dose: 500,000 unit Senna/Docusate Sodium (Senokot-S, Marcia-Colace) 2 tablet PO BID [facility] Last Admin: 03/04/18 08:10 Dose: 2 tablet Warfarin Sodium (Coumadin (Pbkc)) 5 mg PO DAILY@1700 [facility] Medical Necessity - Tobacco Use Smoking Status: Current some day smoker Tobacco Use: Cigarettes Assessment/Plan All Active Problems (Last Reviewed 03/02/18 @ 15:28 by Timothy Hernandez MD) CVA (cerebral vascular accident) (Acute) Debility S/P right MCA distribution infarct. Complicated by new onset atrial fibrillation. Goal of rehab is denominational of prior level of functional independence Plan: - Therapy for gait and balance - Occupational Therapy for ADLs - Speech therapy - Diet => Pur?ed with honey thickened liquids - Insomnia => Melatonin 3mg, and Elavil an hour prior to bedtime, d/c Ativan - Bowel protocol - DVT prophylaxis => SCDs, Juancarlos hoses, Lovenox start on Coumadin 5 mg - New onset A-Fib = > INR is 1.1 - obtain Daily INRs, continue Lovenox start Coumadin 5mg once INR is 2 - 3 d/c Lovenox. - PRN analgesics - Moist cough, with diminished breath sounds in the bases, with scattered Rhonchi through out => Obtain CXR
--- NOTE | 2018-03-04 13:27 | NURSING ---
cxr negative findings. patient updated. cata speech therapist aware and sat with patient during lunch. occassional moist non productive continues and scattered rhonci to bases of lungs R>L, but will decrease with cough.
--- NOTE | 2018-03-04 16:33 | CHAPLAIN ---
Type of Pastoral Visit _x__ Initial Visit ___ Follow-up Visit ___ On-call Visit ___ General Patient Visit ___ Spiritual Assessment ___ Family Conference ___ Bereavement ___ Rapid Response ___ Code Blue ___ Other (describe below) Pastoral Care Referral From _x__ Patient ___ Family ___ Nurse ___ Physician ___ Gear And Spline Grinder ___ Sales And Events Coordinator ___ Other (describe below) Sacrament/Intervention _x__ Active listening ___ Anointing ___ Temple ___ Bereavement ___ Communion ___ Nancy exploration ___ ___ Life review _x__ Prayer ___ Reconciliation ___ Sacrament of Sick ___ Supportive presence ___ Wedding ___ Other (describe below) Pastoral Comments
[2018-03-04] MEDS: Amitriptyline 25 MG Tablet PO (21:19)
[2018-03-04] MEDS: MELATONIN 3 MG TABLET PO (21:19)
[2018-03-04] MEDS: Atorvastatin Calcium 20 MG Tablet 40 MG PO (21:20)
--- NOTE | 2018-03-05 00:22 | NURSING ---
Reviewed and agree with STATE AUDITOR documentation and FIMs charting.
[2018-03-05 05:55] LABS: International Normalized Ratio 1.1; Prothrombin Time (Protime)PT. 13.7 SECONDS (11.7-14.9)
[2018-03-05] MEDS: Enoxaparin 40 MG/0.4 ML Syringe SC (06:26)
[2018-03-05] MEDS: Hydrocortisone 2.5% Crm 1 APPLIC TOPICAL ×2 (06:26→20:11)
[2018-03-05 07:01] VITALS: BP 149/75; PULSE 56; RESP 18; TEMP 36.8; O2SAT 92
[2018-03-05 07:54] VITALS: BP 149/75; PULSE 67
[2018-03-05] MEDS: Aspirin E.C. 81 MG Tablet PO (07:54)
[2018-03-05] MEDS: Metoprolol Tartrate 50 MG Tablet PO ×2 (07:54→20:09)
[2018-03-05] MEDS: Lisinopril 20 MG Tablet PO (07:54)
[2018-03-05] MEDS: amLODIPine 5 MG Tablet PO (07:54)
[2018-03-05] MEDS: Acetaminophen 325 MG Tablet 650 MG PO ×2 (07:54→20:10)
[2018-03-05] MEDS: NYSTATIN 500,000 UNIT/5 ML UDC 500000 UNIT PO ×4 (07:56→20:10)
--- NOTE | 2018-03-05 10:57 | PCM.PN.NEU ---
Subjective: Patient seen and examined. Still having issues with sleeping , unable to get comfortable. On Melatonin and Elavil to help with sleep. Tolerating therapy. CXR negative for any acute processes. Lungs CTA, cough has improved. No issues with GI/. - Physical Exam General: Alert, Oriented x3, Cooperative HEENT: Atraumatic, PERRLA, EOMI, Normocephalic Neck: Supple, No JVD, Negative Carotid Bruits Lungs: Clear to auscultation, Normal air movement Cardiovascular: Regular rate, No murmurs Abdomen: Bowel Sounds Present, Soft, Non Tender Extremities: No edema, Capillary Refill Less than 3 Seconds Skin: No rashes, No breakdown Musculoskeletal: No Tenderness to Palpation of Joints or Extremities Neurological: Cranial nerves II-XII grossly intact Psych/Mental Status: Normal Affect, Appropriate, Alert and oriented to time, place, person, mood and affect Vital Signs Temp Pulse Resp BP Pulse Ox 98.3 F 67 18 149/75 H 92 03/05/18 07:01 03/05/18 07:54 03/05/18 07:01 03/05/18 07:54 03/05/18 07:01 Oxygen Delivery Method Room Air Weight: 87.9 kg Body Mass Index (BMI) 29.5 Finger Stick Blood Glucose 114 Intake and Output for Last 24 Hours 03/03/18 03/04/18 03/05/18 23:59 23:59 23:59 Intake Total 600 / 600 720 / 720 240 / 240 Balance 600 / 600 720 / 720 240 / 240 Microbiology Past 72 Hours 03/03/18 02:00 Urine Culture - Final Urine, Catheterized Culture exhibits no growth. Laboratory Tests Past 24 Hrs 03/05/18 05:15 PT 13.7 INR 1.1 Active Medications Acetaminophen (Tylenol) 650 mg PO Q4H PRN PRN PRN Reason: Mild Pain (0-3/10)/Headache Last Admin: 03/05/18 07:54 Dose: 650 mg Amitriptyline HCl (Elavil) 25 mg PO QHS [facility] Last Admin: 03/04/18 21:19 Dose: 25 mg Amlodipine Besylate (Norvasc) 5 mg PO DAILY [facility] Last Admin: 03/05/18 07:54 Dose: 5 mg Aspirin (Ecotrin) 81 mg PO DAILY@0800 [facility] Last Admin: 03/05/18 07:54 Dose: 81 mg Atorvastatin Calcium (Lipitor) 40 mg PO QHS [facility] Last Admin: 03/04/18 21:20 Dose: 40 mg Bisacodyl (Dulcolax) 10 mg RECTAL .PRN X 1 PRN PRN Reason: Constipation Enoxaparin Sodium (Lovenox) 40 mg SC DAILY@0600 [facility] Last Admin: 03/05/18 06:26 Dose: 40 mg Hydrocortisone (Hytone) 1 applic TOPICAL 0600,2100 [facility]; Protocol Last Admin: 03/05/18 06:26 Dose: 1 applicatio Lisinopril (Zestril) 20 mg PO DAILY [facility] Last Admin: 03/05/18 07:54 Dose: 20 mg Magnesium Hydroxide (Milk Of Magnesia) 30 ml PO .PRN X 1 PRN PRN Reason: Constipation Melatonin (Melatonin) 3 mg PO 1999 [facility] Last Admin: 03/04/18 21:19 Dose: 3 mg Metoprolol Tartrate (Lopressor (Beta Valeria)) 50 mg PO BID [facility] Last Admin: 03/05/18 07:54 Dose: 50 mg Nicotine (Nicoderm Cq (Pbkc)) 14 mg TRANSDERM. DAILY [facility] Last Admin: 03/05/18 07:53 Dose: 14 mg Nystatin (Nystatin) 500,000 unit PO 4X/DAY [facility] Stop: 03/09/18 10:01 Last Admin: 03/05/18 07:56 Dose: 500,000 unit Senna/Docusate Sodium (Senokot-S, Marcia-Colace) 2 tablet PO BID [facility] Last Admin: 03/05/18 07:56 Dose: Not Given Warfarin Sodium (Coumadin (Pbkc)) 5 mg PO DAILY@1700 [facility] Last Admin: 03/04/18 17:22 Dose: 5 mg Medical Necessity - Tobacco Use Smoking Status: Current some day smoker Tobacco Use: Cigarettes Assessment/Plan All Active Problems (Last Reviewed 03/02/18 @ 15:28 by Timothy Hernandez MD) CVA (cerebral vascular accident) (Acute) Debility S/P right MCA distribution infarct. Complicated by new onset atrial fibrillation. Goal of rehab is christian of prior level of functional independence Plan: - Therapy for gait and balance - Occupational Therapy for ADLs - Speech therapy - Diet => Pur?ed with honey thickened liquids - Insomnia => Melatonin 3mg, and Elavil an hour prior to bedtime, d/c Ativan - Bowel protocol - DVT prophylaxis => SCDs, Juancarlos hoses, Lovenox start on Coumadin 5 mg - New onset A-Fib = > INR is 1.1 - obtain Daily INRs, continue Lovenox start Coumadin 5mg once INR is 2 - 3 d/c Lovenox. - PRN analgesics - Moist cough, with diminished breath sounds in the bases, with scattered Rhonchi through out => Obtain CXR => chest x-ray negative for any acute processes.
--- NOTE | 2018-03-05 11:01 | PN.NEURO_ITS ---
Subjective: Patient seen and examined. Still having issues with sleeping , unable to get comfortable. On Melatonin and Elavil to help with sleep. Tolerating therapy. CXR negative for any acute processes. Lungs CTA, cough has improved. No issues with GI/. - Physical Exam General: Alert, Oriented x3, Cooperative HEENT: Atraumatic, PERRLA, EOMI, Normocephalic Neck: Supple, No JVD, Negative Carotid Bruits Lungs: Clear to auscultation, Normal air movement Cardiovascular: Regular rate, No murmurs Abdomen: Bowel Sounds Present, Soft, Non Tender Extremities: No edema, Capillary Refill Less than 3 Seconds Skin: No rashes, No breakdown Musculoskeletal: No Tenderness to Palpation of Joints or Extremities Neurological: Cranial nerves II-XII grossly intact Psych/Mental Status: Normal Affect, Appropriate, Alert and oriented to time, place, person, mood and affect Vital Signs Temp Pulse Resp BP Pulse Ox 98.3 F 67 18 149/75 H 92 03/05/18 07:01 03/05/18 07:54 03/05/18 07:01 03/05/18 07:54 03/05/18 07:01 Oxygen Delivery Method Room Air Weight: 87.9 kg Body Mass Index (BMI) 29.5 Finger Stick Blood Glucose 114 Intake and Output for Last 24 Hours 03/03/18 03/04/18 03/05/18 23:59 23:59 23:59 Intake Total 600 / 600 720 / 720 240 / 240 Balance 600 / 600 720 / 720 240 / 240 Microbiology Past 72 Hours 03/03/18 02:00 Urine Culture - Final Urine, Catheterized Culture exhibits no growth. Laboratory Tests Past 24 Hrs 03/05/18 05:15 PT 13.7 INR 1.1 Active Medications Acetaminophen (Tylenol) 650 mg PO Q4H PRN PRN PRN Reason: Mild Pain (0-3/10)/Headache Last Admin: 03/05/18 07:54 Dose: 650 mg Amitriptyline HCl (Elavil) 25 mg PO QHS [facility] Last Admin: 03/04/18 21:19 Dose: 25 mg Amlodipine Besylate (Norvasc) 5 mg PO DAILY [facility] Last Admin: 03/05/18 07:54 Dose: 5 mg Aspirin (Ecotrin) 81 mg PO DAILY@0800 [facility] Last Admin: 03/05/18 07:54 Dose: 81 mg Atorvastatin Calcium (Lipitor) 40 mg PO QHS [facility] Last Admin: 03/04/18 21:20 Dose: 40 mg Bisacodyl (Dulcolax) 10 mg RECTAL .PRN X 1 PRN PRN Reason: Constipation Enoxaparin Sodium (Lovenox) 40 mg SC DAILY@0600 [facility] Last Admin: 03/05/18 06:26 Dose: 40 mg Hydrocortisone (Hytone) 1 applic TOPICAL 0600,2100 [facility]; Protocol Last Admin: 03/05/18 06:26 Dose: 1 applicatio Lisinopril (Zestril) 20 mg PO DAILY [facility] Last Admin: 03/05/18 07:54 Dose: 20 mg Magnesium Hydroxide (Milk Of Magnesia) 30 ml PO .PRN X 1 PRN PRN Reason: Constipation Melatonin (Melatonin) 3 mg PO 1999 [facility] Last Admin: 03/04/18 21:19 Dose: 3 mg Metoprolol Tartrate (Lopressor (Beta Valeria)) 50 mg PO BID [facility] Last Admin: 03/05/18 07:54 Dose: 50 mg Nicotine (Nicoderm Cq (Pbkc)) 14 mg TRANSDERM. DAILY [facility] Last Admin: 03/05/18 07:53 Dose: 14 mg Nystatin (Nystatin) 500,000 unit PO 4X/DAY [facility] Stop: 03/09/18 10:01 Last Admin: 03/05/18 07:56 Dose: 500,000 unit Senna/Docusate Sodium (Senokot-S, Marcia-Colace) 2 tablet PO BID [facility] Last Admin: 03/05/18 07:56 Dose: Not Given Warfarin Sodium (Coumadin (Pbkc)) 5 mg PO DAILY@1700 [facility] Last Admin: 03/04/18 17:22 Dose: 5 mg Medical Necessity - Tobacco Use Smoking Status: Current some day smoker Tobacco Use: Cigarettes Assessment/Plan All Active Problems (Last Reviewed 03/02/18 @ 15:28 by Timothy Hernandez MD) CVA (cerebral vascular accident) (Acute) Debility S/P right MCA distribution infarct. Complicated by new onset atrial fibrillation. Goal of rehab is christianity of prior level of functional independence Plan: - Therapy for gait and balance - Occupational Therapy for ADLs - Speech therapy - Diet => Pur?ed with honey thickened liquids - Insomnia => Melatonin 3mg, and Elavil an hour prior to bedtime, d/c Ativan - Bowel protocol - DVT prophylaxis => SCDs, Juancarlos hoses, Lovenox start on Coumadin 5 mg - New onset A-Fib = > INR is 1.1 - obtain Daily INRs, continue Lovenox start Coumadin 5mg once INR is 2 - 3 d/c Lovenox. - PRN analgesics - Moist cough, with diminished breath sounds in the bases, with scattered Rhonchi through out => Obtain CXR => chest x-ray negative for any acute processes.
[2018-03-05 13:23] VITALS: BMI 29.5
[2018-03-05 19:26] VITALS: BP 157/66; PULSE 60; RESP 18; TEMP 36.4; O2SAT 94
[2018-03-05 20:09] VITALS: BP 149/80; PULSE 65
[2018-03-05] MEDS: Amitriptyline 25 MG Tablet PO (20:09)
[2018-03-05] MEDS: MELATONIN 3 MG TABLET PO (20:09)
[2018-03-05] MEDS: Atorvastatin Calcium 20 MG Tablet 40 MG PO (20:09)
[2018-03-05] MEDS: Senna/Docusate Sodium 1 Tablet 2 TABLET PO (20:10)
[2018-03-05 20:33] VITALS: BMI 29.5
[2018-03-05 20:42] VITALS: RESP 18
[2018-03-06] MEDS: Enoxaparin 40 MG/0.4 ML Syringe SC (05:29)
[2018-03-06] MEDS: Hydrocortisone 2.5% Crm 1 APPLIC TOPICAL ×2 (05:29→21:54)
[2018-03-06 08:13] VITALS: BP 162/69; PULSE 56; RESP 18; TEMP 36.6; O2SAT 93
[2018-03-06 08:48] VITALS: PULSE 56
[2018-03-06] MEDS: Aspirin E.C. 81 MG Tablet PO (08:48)
[2018-03-06] MEDS: Metoprolol Tartrate 50 MG Tablet PO ×2 (08:48→19:46)
[2018-03-06] MEDS: Lisinopril 20 MG Tablet PO (08:48)
[2018-03-06] MEDS: amLODIPine 5 MG Tablet PO (08:48)
[2018-03-06] MEDS: NYSTATIN 500,000 UNIT/5 ML UDC 500000 UNIT PO ×4 (08:48→21:54)
[2018-03-06] MEDS: Senna/Docusate Sodium 1 Tablet 2 TABLET PO (08:49)
[2018-03-06 10:29] LABS: International Normalized Ratio 1.1; Prothrombin Time (Protime)PT. 14.3 SECONDS (11.7-14.9)
[2018-03-06 11:41] VITALS: BMI 29.5
[2018-03-06 12:21] VITALS: BP 131/59; PULSE 55
--- NOTE | 2018-03-06 14:32 | CASEMGMT ---
Insurance Clinical information faxed. Pending continued stay approval at this time. Auth#[id number] Petra COOK, WOOL GRADER
--- NOTE | 2018-03-06 17:40 | PCM.PN.NEU ---
Subjective: Patient seen and examined. No new complaints. Tolerating therapy. Tolerating Pureed diet with Honey thicken liquids, lungs are clear. Denies any blurry vision, or headaches. No issues with GI/. - Physical Exam General: Alert, Oriented x3, Cooperative HEENT: Atraumatic, PERRLA, EOMI, Normocephalic Neck: Supple, No JVD, Negative Carotid Bruits Lungs: Clear to auscultation, Normal air movement Cardiovascular: Regular rate, No murmurs Abdomen: Bowel Sounds Present, Soft, Non Tender Extremities: No edema, Capillary Refill Less than 3 Seconds Skin: No rashes, No breakdown Musculoskeletal: No Tenderness to Palpation of Joints or Extremities Neurological: Cranial nerves II-XII grossly intact Psych/Mental Status: Normal Affect, Appropriate, Alert and oriented to time, place, person, mood and affect Vital Signs Temp Pulse Resp BP Pulse Ox 97.9 F 55 L 18 131/59 H 93 03/06/18 08:13 03/06/18 12:21 03/06/18 08:13 03/06/18 12:21 03/06/18 08:13 Oxygen Delivery Method Room Air Weight: 83.3 kg Body Mass Index (BMI) 29.5 Finger Stick Blood Glucose 114 Intake and Output for Last 24 Hours 03/04/18 03/05/18 03/06/18 23:59 23:59 23:59 Intake Total 720 / 720 460 / 460 Balance 720 / 720 460 / 460 Microbiology Past 72 Hours 03/03/18 02:00 Urine Culture - Final Urine, Catheterized Culture exhibits no growth. Laboratory Tests Past 24 Hrs 03/06/18 10:00 PT 14.3 INR 1.1 Active Medications Acetaminophen (Tylenol) 650 mg PO Q4H PRN PRN PRN Reason: Mild Pain (0-3/10)/Headache Last Admin: 03/05/18 20:10 Dose: 650 mg Amitriptyline HCl (Elavil) 25 mg PO QHS [facility] Last Admin: 03/05/18 20:09 Dose: 25 mg Amlodipine Besylate (Norvasc) 5 mg PO DAILY [facility] Last Admin: 03/06/18 08:48 Dose: 5 mg Aspirin (Ecotrin) 81 mg PO DAILY@0800 [facility] Last Admin: 03/06/18 08:48 Dose: 81 mg Atorvastatin Calcium (Lipitor) 40 mg PO QHS [facility] Last Admin: 03/05/18 20:09 Dose: 40 mg Bisacodyl (Dulcolax) 10 mg RECTAL .PRN X 1 PRN PRN Reason: Constipation Enoxaparin Sodium (Lovenox) 40 mg SC DAILY@0600 [facility] Last Admin: 03/06/18 05:29 Dose: 40 mg Hydrocortisone (Hytone) 1 applic TOPICAL 0600,2100 [facility]; Protocol Last Admin: 03/06/18 05:29 Dose: 1 applicatio Lisinopril (Zestril) 20 mg PO DAILY [facility] Last Admin: 03/06/18 08:48 Dose: 20 mg Magnesium Hydroxide (Milk Of Magnesia) 30 ml PO .PRN X 1 PRN PRN Reason: Constipation Melatonin (Melatonin) 5 mg PO 1999 [facility] Metoprolol Tartrate (Lopressor (Beta Valeria)) 50 mg PO BID [facility] Last Admin: 03/06/18 08:48 Dose: 50 mg Nicotine (Nicoderm Cq (Pbkc)) 14 mg TRANSDERM. DAILY [facility] Last Admin: 03/06/18 08:48 Dose: 14 mg Nystatin (Nystatin) 500,000 unit PO 4X/DAY [facility] Stop: 03/09/18 10:01 Last Admin: 03/06/18 17:00 Dose: 500,000 unit Senna/Docusate Sodium (Senokot-S, Marcia-Colace) 2 tablet PO BID [facility] Last Admin: 03/06/18 08:49 Dose: 2 tablet Warfarin Sodium (Coumadin (Pbkc)) 5 mg PO DAILY@1700 [facility] Last Admin: 03/06/18 11:14 Dose: Not Given Medical Necessity - Tobacco Use Smoking Status: Current some day smoker Tobacco Use: Cigarettes Assessment/Plan All Active Problems (Last Reviewed 03/02/18 @ 15:28 by Timothy Hernandez MD) CVA (cerebral vascular accident) (Acute) Debility S/P right MCA distribution infarct. Complicated by new onset atrial fibrillation. Goal of rehab is catholic of prior level of functional independence Plan: - Therapy for gait and balance - Occupational Therapy for ADLs - Speech therapy - Diet => Pur?ed with honey thickened liquids - Insomnia => Melatonin 3mg, and Elavil an hour prior to bedtime, d/c Ativan - Bowel protocol - DVT prophylaxis => SCDs, Juancarlos hoses, Lovenox start on Coumadin 5 mg - New onset A-Fib = > INR is 1.1 - obtain Daily INRs, continue Lovenox start Coumadin 5mg once INR is 2 - 3 d/c Lovenox. - PRN analgesics - Moist cough, with diminished breath sounds in the bases, with scattered Rhonchi through out => Obtain CXR => chest x-ray negative for any acute processes.
[2018-03-06 19:30] VITALS: BP 138/58; PULSE 62; RESP 20; TEMP 37.2; O2SAT 94; BMI 29.5
[2018-03-06 19:46] VITALS: BP 138/58; PULSE 62
[2018-03-06] MEDS: Atorvastatin Calcium 20 MG Tablet 40 MG PO (19:46)
[2018-03-06] MEDS: MELATONIN 10 MG TABLET 5 MG PO (19:46)
[2018-03-06] MEDS: Amitriptyline 25 MG Tablet PO (21:54)
[2018-03-07] MEDS: Enoxaparin 40 MG/0.4 ML Syringe SC (05:11)
[2018-03-07] MEDS: Hydrocortisone 2.5% Crm 1 APPLIC TOPICAL ×2 (05:12→21:49)
[2018-03-07] MEDS: Acetaminophen 325 MG Tablet 650 MG PO (05:21)
--- NOTE | 2018-03-07 05:22 | NURSING ---
REVIEWED AND AGREE WITH ICE SCULPTOR'S FIM AND HANDOFF CHARTING.
[2018-03-07 07:43] VITALS: BP 130/54; PULSE 59; RESP 18; TEMP 36.8; O2SAT 59
[2018-03-07 07:45] VITALS: PULSE 59
[2018-03-07] MEDS: Aspirin E.C. 81 MG Tablet PO (07:45)
[2018-03-07] MEDS: Lisinopril 20 MG Tablet PO (07:45)
[2018-03-07] MEDS: Metoprolol Tartrate 50 MG Tablet PO ×2 (07:45→21:14)
[2018-03-07] MEDS: amLODIPine 5 MG Tablet PO (07:45)
[2018-03-07] MEDS: NYSTATIN 500,000 UNIT/5 ML UDC 500000 UNIT PO ×4 (07:46→21:16)
--- NOTE | 2018-03-07 08:34 | CASEMGMT ---
Insurance Continued stay approved with next update due on 03/12/18. Auth#[id number] Petra COOK, COOK PIE
--- NOTE | 2018-03-07 10:04 | PCM.PN.NEU ---
Subjective: Staffed in team meeting. Family at bedside, questions answered. With Physical therapy, he is minimal assist to get in and out of bed. He is Minimal to moderate assist to go from a sit to stand specially when tired or he has been sitting for a while. He is walking 65 feet using the Ronan-walker, the plan is to transition to a Quad cane since he is doing so well with the Ronan-walker. He has walked up and down 3 steps using 1 hand rail at minimal assistance. With Occupational therapy, He is moderate assist for bathing 2/2 balance issues and for safety. With upper body dressing he requires minimal assistance, specially with getting his shirt on using one hand. With lower body he is doing well requires assistance with getting and tieing his shoes. He is doing well with toileting transfers and hygiene. With Speech he remains on a Pureed diet with Honey thicken liquids. Will do a repeat swallow evaluation in 2 weeks. will trail the [place] water protocol over the next few days. With the cogitative assessment he scored WNL for his age group. With Nursing his pain is well controlled. He does have oral thrust which is being treated with liquid Nystatin. Will re-team him again on 03/14. - Physical Exam General: Alert, Oriented x3, Cooperative HEENT: Atraumatic, PERRLA, EOMI, Normocephalic Neck: Supple, No JVD, Negative Carotid Bruits Lungs: Clear to auscultation, Normal air movement Cardiovascular: Regular rate, No murmurs Abdomen: Bowel Sounds Present, Soft, Non Tender Extremities: No edema, Capillary Refill Less than 3 Seconds Skin: No rashes, No breakdown Musculoskeletal: No Tenderness to Palpation of Joints or Extremities Neurological: Cranial nerves II-XII grossly intact Psych/Mental Status: Normal Affect, Appropriate, Alert and oriented to time, place, person, mood and affect Vital Signs Temp Pulse Resp BP Pulse Ox 98.2 F 59 L 18 130/54 H 59 03/07/18 07:43 03/07/18 07:45 03/07/18 07:43 03/07/18 07:43 03/07/18 07:43 Oxygen Delivery Method Room Air Weight: 83.3 kg Body Mass Index (BMI) 29.5 Finger Stick Blood Glucose 114 Intake and Output for Last 24 Hours 03/05/18 03/06/18 03/07/18 23:59 23:59 23:59 Intake Total 460 / 460 Balance 460 / 460 Microbiology Past 72 Hours 03/03/18 02:00 Urine Culture - Final Urine, Catheterized Culture exhibits no growth. Laboratory Tests Past 24 Hrs 03/06/18 10:00 PT 14.3 INR 1.1 Active Medications Acetaminophen (Tylenol) 650 mg PO Q4H PRN PRN PRN Reason: Mild Pain (0-3/10)/Headache Last Admin: 03/07/18 05:21 Dose: 650 mg Amitriptyline HCl (Elavil) 25 mg PO QHS [facility] Last Admin: 03/06/18 21:54 Dose: 25 mg Amlodipine Besylate (Norvasc) 5 mg PO DAILY [facility] Last Admin: 03/07/18 07:45 Dose: 5 mg Aspirin (Ecotrin) 81 mg PO DAILY@0800 [facility] Last Admin: 03/07/18 07:45 Dose: 81 mg Atorvastatin Calcium (Lipitor) 40 mg PO QHS [facility] Last Admin: 03/06/18 19:46 Dose: 40 mg Bisacodyl (Dulcolax) 10 mg RECTAL .PRN X 1 PRN PRN Reason: Constipation Enoxaparin Sodium (Lovenox) 40 mg SC DAILY@0600 [facility] Last Admin: 03/07/18 05:11 Dose: 40 mg Hydrocortisone (Hytone) 1 applic TOPICAL 0600,2099 [facility]; Protocol Last Admin: 03/07/18 05:12 Dose: 1 applicatio Lisinopril (Zestril) 20 mg PO DAILY [facility] Last Admin: 03/07/18 07:45 Dose: 20 mg Magnesium Hydroxide (Milk Of Magnesia) 30 ml PO .PRN X 1 PRN PRN Reason: Constipation Melatonin (Melatonin) 5 mg PO 1999 [facility] Last Admin: 03/06/18 19:46 Dose: 5 mg Metoprolol Tartrate (Lopressor (Beta Valeria)) 50 mg PO BID [facility] Last Admin: 03/07/18 07:45 Dose: 50 mg Nicotine (Nicoderm Cq (Pbkc)) 14 mg TRANSDERM. DAILY [facility] Last Admin: 03/07/18 07:45 Dose: 14 mg Nystatin (Nystatin) 500,000 unit PO 4X/DAY [facility] Stop: 03/09/18 10:01 Last Admin: 03/07/18 07:46 Dose: 500,000 unit Senna/Docusate Sodium (Senokot-S, Marcia-Colace) 2 tablet PO BID [facility] Last Admin: 03/07/18 07:43 Dose: Not Given Warfarin Sodium (Coumadin (Pbkc)) 5 mg PO DAILY@1700 [facility] Last Admin: 03/06/18 11:14 Dose: Not Given Medical Necessity - Tobacco Use Smoking Status: Current some day smoker Tobacco Use: Cigarettes Assessment/Plan All Active Problems (Last Reviewed 03/02/18 @ 15:28 by Timothy Hernandez MD) CVA (cerebral vascular accident) (Acute) Debility S/P right MCA distribution infarct. Complicated by new onset atrial fibrillation. Goal of rehab is pentecostal of prior level of functional independence Plan: - Therapy for gait and balance - Occupational Therapy for ADLs - Speech therapy - Diet => Pur?ed with honey thickened liquids - Insomnia => Melatonin 3mg, and Elavil an hour prior to bedtime, d/c Ativan - Bowel protocol - DVT prophylaxis => SCDs, Juancarlos hoses, Lovenox start on Coumadin 5 mg - New onset A-Fib = > INR is 1.1 - obtain Daily INRs, continue Lovenox start Coumadin 5mg once INR is 2 - 3 d/c Lovenox. - PRN analgesics - Moist cough, with diminished breath sounds in the bases, with scattered Rhonchi through out => Obtain CXR => chest x-ray negative for any acute processes. - [place] water protocol, repeat Swallow Evaluation in two weeks.
--- NOTE | 2018-03-07 10:16 | PN.NEURO_ITS ---
Subjective: Staffed in team meeting. Family at bedside, questions answered. With Physical therapy, he is minimal assist to get in and out of bed. He is Minimal to moderate assist to go from a sit to stand specially when tired or he has been sitting for a while. He is walking 65 feet using the Ronan-walker, the plan is to transition to a Quad cane since he is doing so well with the Ronan-walker. He has walked up and down 3 steps using 1 hand rail at minimal assistance. With Occupational therapy, He is moderate assist for bathing 2/2 balance issues and for safety. With upper body dressing he requires minimal assistance, specially with getting his shirt on using one hand. With lower body he is doing well requires assistance with getting and tieing his shoes. He is doing well with toileting transfers and hygiene. With Speech he remains on a Pureed diet with Honey thicken liquids. Will do a repeat swallow evaluation in 2 weeks. will trail the [place] water protocol over the next few days. With the cogitative assessment he scored WNL for his age group. With Nursing his pain is well controlled. He does have oral thrust which is being treated with liquid Nystatin. Will re-team him again on 03/14. - Physical Exam General: Alert, Oriented x3, Cooperative HEENT: Atraumatic, PERRLA, EOMI, Normocephalic Neck: Supple, No JVD, Negative Carotid Bruits Lungs: Clear to auscultation, Normal air movement Cardiovascular: Regular rate, No murmurs Abdomen: Bowel Sounds Present, Soft, Non Tender Extremities: No edema, Capillary Refill Less than 3 Seconds Skin: No rashes, No breakdown Musculoskeletal: No Tenderness to Palpation of Joints or Extremities Neurological: Cranial nerves II-XII grossly intact Psych/Mental Status: Normal Affect, Appropriate, Alert and oriented to time, place, person, mood and affect Vital Signs Temp Pulse Resp BP Pulse Ox 98.2 F 59 L 18 130/54 H 59 03/07/18 07:43 03/07/18 07:45 03/07/18 07:43 03/07/18 07:43 03/07/18 07:43 Oxygen Delivery Method Room Air Weight: 83.3 kg Body Mass Index (BMI) 29.5 Finger Stick Blood Glucose 114 Intake and Output for Last 24 Hours 03/05/18 03/06/18 03/07/18 23:59 23:59 23:59 Intake Total 460 / 460 Balance 460 / 460 Microbiology Past 72 Hours 03/03/18 02:00 Urine Culture - Final Urine, Catheterized Culture exhibits no growth. Laboratory Tests Past 24 Hrs 03/06/18 10:00 PT 14.3 INR 1.1 Active Medications Acetaminophen (Tylenol) 650 mg PO Q4H PRN PRN PRN Reason: Mild Pain (0-3/10)/Headache Last Admin: 03/07/18 05:21 Dose: 650 mg Amitriptyline HCl (Elavil) 25 mg PO QHS [facility] Last Admin: 03/06/18 21:54 Dose: 25 mg Amlodipine Besylate (Norvasc) 5 mg PO DAILY [facility] Last Admin: 03/07/18 07:45 Dose: 5 mg Aspirin (Ecotrin) 81 mg PO DAILY@0800 [facility] Last Admin: 03/07/18 07:45 Dose: 81 mg Atorvastatin Calcium (Lipitor) 40 mg PO QHS [facility] Last Admin: 03/06/18 19:46 Dose: 40 mg Bisacodyl (Dulcolax) 10 mg RECTAL .PRN X 1 PRN PRN Reason: Constipation Enoxaparin Sodium (Lovenox) 40 mg SC DAILY@0600 [facility] Last Admin: 03/07/18 05:11 Dose: 40 mg Hydrocortisone (Hytone) 1 applic TOPICAL 0600,2099 [facility]; Protocol Last Admin: 03/07/18 05:12 Dose: 1 applicatio Lisinopril (Zestril) 20 mg PO DAILY [facility] Last Admin: 03/07/18 07:45 Dose: 20 mg Magnesium Hydroxide (Milk Of Magnesia) 30 ml PO .PRN X 1 PRN PRN Reason: Constipation Melatonin (Melatonin) 5 mg PO 1999 [facility] Last Admin: 03/06/18 19:46 Dose: 5 mg Metoprolol Tartrate (Lopressor (Beta Valeria)) 50 mg PO BID [facility] Last Admin: 03/07/18 07:45 Dose: 50 mg Nicotine (Nicoderm Cq (Pbkc)) 14 mg TRANSDERM. DAILY [facility] Last Admin: 03/07/18 07:45 Dose: 14 mg Nystatin (Nystatin) 500,000 unit PO 4X/DAY [facility] Stop: 03/09/18 10:01 Last Admin: 03/07/18 07:46 Dose: 500,000 unit Senna/Docusate Sodium (Senokot-S, Marcia-Colace) 2 tablet PO BID [facility] Last Admin: 03/07/18 07:43 Dose: Not Given Warfarin Sodium (Coumadin (Pbkc)) 5 mg PO DAILY@1700 [facility] Last Admin: 03/06/18 11:14 Dose: Not Given Medical Necessity - Tobacco Use Smoking Status: Current some day smoker Tobacco Use: Cigarettes Assessment/Plan All Active Problems (Last Reviewed 03/02/18 @ 15:28 by Timothy Hernandez MD) CVA (cerebral vascular accident) (Acute) Debility S/P right MCA distribution infarct. Complicated by new onset atrial fibrillation. Goal of rehab is voodoo of prior level of functional independence Plan: - Therapy for gait and balance - Occupational Therapy for ADLs - Speech therapy - Diet => Pur?ed with honey thickened liquids - Insomnia => Melatonin 3mg, and Elavil an hour prior to bedtime, d/c Ativan - Bowel protocol - DVT prophylaxis => SCDs, Juancarlos hoses, Lovenox start on Coumadin 5 mg - New onset A-Fib = > INR is 1.1 - obtain Daily INRs, continue Lovenox start Coumadin 5mg once INR is 2 - 3 d/c Lovenox. - PRN analgesics - Moist cough, with diminished breath sounds in the bases, with scattered Rhonchi through out => Obtain CXR => chest x-ray negative for any acute processes. - [place] Chat[place] water protocol, repeat Swallow Evaluation in two weeks.
[2018-03-07 10:44] LABS: International Normalized Ratio 1.3; Prothrombin Time (Protime)PT. 16.6 SECONDS (11.7-14.9)
--- NOTE | 2018-03-07 13:13 | CASEMGMT ---
Team meeting held. Resident present as well as resident daughter. No discharge date set at this time. Patient to continue with further care and treatment on the Inpatient Rehab Unit at this time. Patient with insurance update due on 03/12/18, patient aware that continued stay approval is not guaranteed. Patient plans to discharge to home with daughter were patient son-in-law also lives and is able to assist. Patient will have 24hr care at time of discharge provided by family. Support given. Will continue to follow. Petra COOK, FOURDRINIER MACHINE OPERATOR
[2018-03-07 14:55] VITALS: BMI 29.5
[2018-03-07 19:40] VITALS: BP 148/76; PULSE 59; RESP 18; TEMP 36.8; O2SAT 95
[2018-03-07] MEDS: MELATONIN 10 MG TABLET 5 MG PO (21:13)
[2018-03-07 21:14] VITALS: PULSE 61
[2018-03-07] MEDS: Atorvastatin Calcium 20 MG Tablet 40 MG PO (21:14)
[2018-03-07] MEDS: Amitriptyline 25 MG Tablet PO (21:14)
[2018-03-08] MEDS: Hydrocortisone 2.5% Crm 1 APPLIC TOPICAL ×2 (06:07→20:53)
[2018-03-08] MEDS: Enoxaparin 40 MG/0.4 ML Syringe SC (06:07)
[2018-03-08 07:39] VITALS: BP 136/54; PULSE 54; RESP 18; TEMP 36.7; O2SAT 94
[2018-03-08 10:13] VITALS: BP 136/54; PULSE 54
[2018-03-08] MEDS: Metoprolol Tartrate 50 MG Tablet PO ×2 (10:13→20:56)
[2018-03-08] MEDS: Aspirin E.C. 81 MG Tablet PO (10:14)
[2018-03-08] MEDS: NYSTATIN 500,000 UNIT/5 ML UDC 500000 UNIT PO ×4 (10:14→20:54)
[2018-03-08] MEDS: Senna/Docusate Sodium 1 Tablet 2 TABLET PO ×2 (10:14→20:52)
[2018-03-08] MEDS: amLODIPine 5 MG Tablet PO (10:14)
[2018-03-08] MEDS: Lisinopril 20 MG Tablet PO (10:14)
[2018-03-08 11:39] LABS: International Normalized Ratio 1.5
--- NOTE | 2018-03-08 14:30 | PCM.PN.NEU ---
Subjective: Patient seen and examined. No new complaints. Tolerating therapy. Denies any blurry vision, double vision, or headaches. No issues with GI/. INR is 1.5 increase his Coumadin to 7mg, daily INRs. - Physical Exam General: Alert, Oriented x3, Cooperative HEENT: Atraumatic, PERRLA, EOMI, Normocephalic Neck: Supple, No JVD, Negative Carotid Bruits Lungs: Clear to auscultation, Normal air movement Cardiovascular: Regular rate, No murmurs Abdomen: Bowel Sounds Present, Soft, Non Tender Extremities: No edema, Capillary Refill Less than 3 Seconds Skin: No rashes, No breakdown Musculoskeletal: No Tenderness to Palpation of Joints or Extremities Neurological: Cranial nerves II-XII grossly intact Psych/Mental Status: Normal Affect, Appropriate, Alert and oriented to time, place, person, mood and affect Vital Signs Temp Pulse Resp BP Pulse Ox 98.1 F 54 L 18 136/54 H 94 03/08/18 07:39 03/08/18 10:13 03/08/18 07:39 03/08/18 10:13 03/08/18 07:39 Oxygen Delivery Method Room Air Weight: 83.3 kg Body Mass Index (BMI) 29.5 Finger Stick Blood Glucose 114 Intake and Output for Last 24 Hours 03/06/18 03/07/18 03/08/18 23:59 23:59 23:59 Intake Total 360 / 360 Balance 360 / 360 Laboratory Tests Past 24 Hrs 03/08/18 11:25 PT 18.0 H INR 1.5 Active Medications Acetaminophen (Tylenol) 650 mg PO Q4H PRN PRN PRN Reason: Mild Pain (0-3/10)/Headache Last Admin: 03/07/18 05:21 Dose: 650 mg Amitriptyline HCl (Elavil) 25 mg PO QHS [facility] Last Admin: 03/07/18 21:14 Dose: 25 mg Amlodipine Besylate (Norvasc) 5 mg PO DAILY [facility] Last Admin: 03/08/18 10:14 Dose: 5 mg Aspirin (Ecotrin) 81 mg PO DAILY@0800 [facility] Last Admin: 03/08/18 10:14 Dose: 81 mg Atorvastatin Calcium (Lipitor) 40 mg PO QHS [facility] Last Admin: 03/07/18 21:14 Dose: 40 mg Bisacodyl (Dulcolax) 10 mg RECTAL .PRN X 1 PRN PRN Reason: Constipation Enoxaparin Sodium (Lovenox) 40 mg SC DAILY@0600 [facility] Last Admin: 03/08/18 06:07 Dose: 40 mg Hydrocortisone (Hytone) 1 applic TOPICAL 0600,2100 [facility]; Protocol Last Admin: 03/08/18 06:07 Dose: 1 applicatio Lisinopril (Zestril) 20 mg PO DAILY [facility] Last Admin: 03/08/18 10:14 Dose: 20 mg Magnesium Hydroxide (Milk Of Magnesia) 30 ml PO .PRN X 1 PRN PRN Reason: Constipation Melatonin (Melatonin) 5 mg PO 1999 [facility] Last Admin: 03/07/18 21:13 Dose: 5 mg Metoprolol Tartrate (Lopressor (Beta Valeria)) 50 mg PO BID [facility] Last Admin: 03/08/18 10:13 Dose: 50 mg Nicotine (Nicoderm Cq (Pbkc)) 14 mg TRANSDERM. DAILY [facility] Last Admin: 03/08/18 10:14 Dose: 14 mg Nystatin (Nystatin) 500,000 unit PO 4X/DAY [facility] Stop: 03/09/18 10:01 Last Admin: 03/08/18 13:37 Dose: 500,000 unit Senna/Docusate Sodium (Senokot-S, Marcia-Colace) 2 tablet PO BID [facility] Last Admin: 03/08/18 10:14 Dose: 2 tablet Warfarin Sodium (Coumadin (Pbkc)) 6 mg PO DAILY@1700 [facility] Last Admin: 03/07/18 17:45 Dose: 6 mg Medical Necessity - Tobacco Use Smoking Status: Current some day smoker Tobacco Use: Cigarettes Assessment/Plan All Active Problems (Last Reviewed 03/02/18 @ 15:28 by Timothy Hernandez MD) CVA (cerebral vascular accident) (Acute) Debility S/P right MCA distribution infarct. Complicated by new onset atrial fibrillation. Goal of rehab is faith of prior level of functional independence Plan: - Therapy for gait and balance - Occupational Therapy for ADLs - Speech therapy - Diet => Pur?ed with honey thickened liquids - Insomnia => Melatonin 3mg, and Elavil an hour prior to bedtime, d/c Ativan - Bowel protocol - DVT prophylaxis => SCDs, Juancarlos hoses, Lovenox start on Coumadin 5 mg - New onset A-Fib = > INR is 1.5 - obtain Daily INRs, continue Lovenox, increase Coumadin 7mg once INR is 2 - 3 d/c Lovenox. - PRN analgesics - Moist cough, with diminished breath sounds in the bases, with scattered Rhonchi through out => Obtain CXR => chest x-ray negative for any acute processes. - [place] Chat[place] water protocol, repeat Swallow Evaluation in two weeks.
--- NOTE | 2018-03-08 14:34 | PN.NEURO_ITS ---
Subjective: Patient seen and examined. No new complaints. Tolerating therapy. Denies any blurry vision, double vision, or headaches. No issues with GI/. INR is 1.5 increase his Coumadin to 7mg, daily INRs. - Physical Exam General: Alert, Oriented x3, Cooperative HEENT: Atraumatic, PERRLA, EOMI, Normocephalic Neck: Supple, No JVD, Negative Carotid Bruits Lungs: Clear to auscultation, Normal air movement Cardiovascular: Regular rate, No murmurs Abdomen: Bowel Sounds Present, Soft, Non Tender Extremities: No edema, Capillary Refill Less than 3 Seconds Skin: No rashes, No breakdown Musculoskeletal: No Tenderness to Palpation of Joints or Extremities Neurological: Cranial nerves II-XII grossly intact Psych/Mental Status: Normal Affect, Appropriate, Alert and oriented to time, place, person, mood and affect Vital Signs Temp Pulse Resp BP Pulse Ox 98.1 F 54 L 18 136/54 H 94 03/08/18 07:39 03/08/18 10:13 03/08/18 07:39 03/08/18 10:13 03/08/18 07:39 Oxygen Delivery Method Room Air Weight: 83.3 kg Body Mass Index (BMI) 29.5 Finger Stick Blood Glucose 114 Intake and Output for Last 24 Hours 03/06/18 03/07/18 03/08/18 23:59 23:59 23:59 Intake Total 360 / 360 Balance 360 / 360 Laboratory Tests Past 24 Hrs 03/08/18 11:25 PT 18.0 H INR 1.5 Active Medications Acetaminophen (Tylenol) 650 mg PO Q4H PRN PRN PRN Reason: Mild Pain (0-3/10)/Headache Last Admin: 03/07/18 05:21 Dose: 650 mg Amitriptyline HCl (Elavil) 25 mg PO QHS [facility] Last Admin: 03/07/18 21:14 Dose: 25 mg Amlodipine Besylate (Norvasc) 5 mg PO DAILY [facility] Last Admin: 03/08/18 10:14 Dose: 5 mg Aspirin (Ecotrin) 81 mg PO DAILY@0800 [facility] Last Admin: 03/08/18 10:14 Dose: 81 mg Atorvastatin Calcium (Lipitor) 40 mg PO QHS [facility] Last Admin: 03/07/18 21:14 Dose: 40 mg Bisacodyl (Dulcolax) 10 mg RECTAL .PRN X 1 PRN PRN Reason: Constipation Enoxaparin Sodium (Lovenox) 40 mg SC DAILY@0600 [facility] Last Admin: 03/08/18 06:07 Dose: 40 mg Hydrocortisone (Hytone) 1 applic TOPICAL 0600,2100 [facility]; Protocol Last Admin: 03/08/18 06:07 Dose: 1 applicatio Lisinopril (Zestril) 20 mg PO DAILY [facility] Last Admin: 03/08/18 10:14 Dose: 20 mg Magnesium Hydroxide (Milk Of Magnesia) 30 ml PO .PRN X 1 PRN PRN Reason: Constipation Melatonin (Melatonin) 5 mg PO 1999 [facility] Last Admin: 03/07/18 21:13 Dose: 5 mg Metoprolol Tartrate (Lopressor (Beta Valeria)) 50 mg PO BID [facility] Last Admin: 03/08/18 10:13 Dose: 50 mg Nicotine (Nicoderm Cq (Pbkc)) 14 mg TRANSDERM. DAILY [facility] Last Admin: 03/08/18 10:14 Dose: 14 mg Nystatin (Nystatin) 500,000 unit PO 4X/DAY [facility] Stop: 03/09/18 10:01 Last Admin: 03/08/18 13:37 Dose: 500,000 unit Senna/Docusate Sodium (Senokot-S, Marcia-Colace) 2 tablet PO BID [facility] Last Admin: 03/08/18 10:14 Dose: 2 tablet Warfarin Sodium (Coumadin (Pbkc)) 6 mg PO DAILY@1700 [facility] Last Admin: 03/07/18 17:45 Dose: 6 mg Medical Necessity - Tobacco Use Smoking Status: Current some day smoker Tobacco Use: Cigarettes Assessment/Plan All Active Problems (Last Reviewed 03/02/18 @ 15:28 by Timothy Hernandez MD) CVA (cerebral vascular accident) (Acute) Debility S/P right MCA distribution infarct. Complicated by new onset atrial fibrillation. Goal of rehab is [place] of prior level of functional independence Plan: - Therapy for gait and balance - Occupational Therapy for ADLs - Speech therapy - Diet => Pur?ed with honey thickened liquids - Insomnia => Melatonin 3mg, and Elavil an hour prior to bedtime, d/c Ativan - Bowel protocol - DVT prophylaxis => SCDs, Juancarlos hoses, Lovenox start on Coumadin 5 mg - New onset A-Fib = > INR is 1.5 - obtain Daily INRs, continue Lovenox, increase Coumadin 7mg once INR is 2 - 3 d/c Lovenox. - PRN analgesics - Moist cough, with diminished breath sounds in the bases, with scattered Rhonchi through out => Obtain CXR => chest x-ray negative for any acute processes. - [place] water protocol, repeat Swallow Evaluation in two weeks.
[2018-03-08 14:55] VITALS: BMI 29.5
[2018-03-08 16:45] VITALS: PULSE 60; RESP 20
[2018-03-08] MEDS: Albuterol 2.5 MG/3 ML VIAL.NEB. INHALATION (16:45)
[2018-03-08 20:14] VITALS: BP 139/72; PULSE 64; RESP 18; TEMP 36.7; O2SAT 95
[2018-03-08 20:50] VITALS: RESP 18; O2SAT 95; BMI 29.5
[2018-03-08] MEDS: MELATONIN 10 MG TABLET 5 MG PO (20:52)
[2018-03-08] MEDS: Atorvastatin Calcium 20 MG Tablet 40 MG PO (20:53)
[2018-03-08] MEDS: Amitriptyline 25 MG Tablet PO (20:53)
[2018-03-08 20:56] VITALS: BP 139/72; PULSE 64
--- NOTE | 2018-03-09 03:50 | NURSING ---
REVIEWED AND AGREE WITH SPECTRAL SCIENTIST'S FIM AND HANDOFF CHARTING.
[2018-03-09] MEDS: Hydrocortisone 2.5% Crm 1 APPLIC TOPICAL ×2 (05:11→21:07)
[2018-03-09] MEDS: Enoxaparin 40 MG/0.4 ML Syringe SC (05:12)
[2018-03-09 07:37] VITALS: BP 161/77; PULSE 55; RESP 18; TEMP 36.6; O2SAT 95
[2018-03-09] MEDS: NYSTATIN 500,000 UNIT/5 ML UDC 500000 UNIT PO (10:48)
[2018-03-09] MEDS: Lisinopril 20 MG Tablet PO (10:48)
[2018-03-09 10:49] VITALS: BP 161/77; PULSE 55
[2018-03-09] MEDS: Senna/Docusate Sodium 1 Tablet 2 TABLET PO ×2 (10:49→21:05)
[2018-03-09] MEDS: Aspirin E.C. 81 MG Tablet PO (10:49)
[2018-03-09] MEDS: amLODIPine 5 MG Tablet PO (10:49)
[2018-03-09] MEDS: Metoprolol Tartrate 50 MG Tablet PO ×2 (10:49→21:06)
[2018-03-09 11:14] VITALS: BMI 29.5
[2018-03-09 17:08] LABS: International Normalized Ratio 1.6; Prothrombin Time (Protime)PT. 19.5 SECONDS (11.7-14.9)
[2018-03-09 18:50] VITALS: BP 132/64; PULSE 59; RESP 18; TEMP 36.4; O2SAT 94
[2018-03-09] MEDS: Atorvastatin Calcium 20 MG Tablet 40 MG PO (21:05)
[2018-03-09] MEDS: Amitriptyline 25 MG Tablet PO (21:05)
[2018-03-09 21:06] VITALS: PULSE 74
[2018-03-09] MEDS: MELATONIN 10 MG TABLET 5 MG PO (21:07)
[2018-03-09 21:09] VITALS: BP 130/67
[2018-03-10] VITALS (7 sets, daily range): BP systolic 122–132; BP diastolic 53–61; PULSE 59–78; RESP 18; TEMP 36.9; O2SAT 93–94; BMI 29.5
[2018-03-10] MEDS: Hydrocortisone 2.5% Crm 1 APPLIC TOPICAL ×2 (05:28→20:30)
[2018-03-10] MEDS: Enoxaparin 40 MG/0.4 ML Syringe SC (05:28)
[2018-03-10 07:54] LABS: International Normalized Ratio 1.9; Prothrombin Time (Protime)PT. 21.9 SECONDS (11.7-14.9)
[2018-03-10] MEDS: Metoprolol Tartrate 50 MG Tablet PO ×2 (08:01→20:29)
[2018-03-10] MEDS: Aspirin E.C. 81 MG Tablet PO (08:02)
[2018-03-10] MEDS: Senna/Docusate Sodium 1 Tablet 2 TABLET PO ×2 (08:02→20:29)
[2018-03-10] MEDS: amLODIPine 5 MG Tablet PO (08:02)
[2018-03-10] MEDS: Lisinopril 20 MG Tablet PO (08:04)
[2018-03-10] MEDS: Albuterol 2.5 MG/3 ML VIAL.NEB. INHALATION ×3 (08:21→19:20)
--- NOTE | 2018-03-10 12:12 | PCM.PN.HOSP ---
Subjective: The patient was admitted after right MCA distribution ischemic infarct with left-sided weakness. On PT, OT and speech/swallow therapy Vitals/I&O's: Vital Signs Temp Pulse Resp BP Pulse Ox 98.4 F 65 18 122/61 H 94 03/10/18 08:20 03/10/18 08:20 03/10/18 08:20 03/10/18 08:20 03/10/18 08:20 Oxygen Delivery Method Room Air Weight: 183 lb 10.321 oz Body Mass Index (BMI) 29.5 Finger Stick Blood Glucose 114 Intake and Output for Last 24 Hours 03/08/18 03/09/18 03/10/18 23:59 23:59 23:59 Intake Total 600 / 600 600 / 600 Balance 600 / 600 600 / 600 General: Alert, Oriented x3, Cooperative HEENT: Atraumatic, PERRLA, EOMI, Normocephalic Neck: Supple, No JVD, Negative Carotid Bruits Lungs: Clear to auscultation, Normal air movement Cardiovascular: Regular rate, Normal S1, Normal S2, No murmurs Abdomen: Bowel Sounds Present, Soft, Non Tender Extremities: No edema, Capillary Refill Less than 3 Seconds Skin: No rashes, No breakdown Musculoskeletal: No Tenderness to Palpation of Joints or Extremities, Arthritic Changes Neurological: - - Left upper and lower extremity weakness. Dysarthria and slurring. Left-sided UMN facial nerve palsy Psych/Mental Status: Normal Affect, Appropriate Laboratory Results 03/09/18 16:55: PT 19.5 H, INR 1.6 03/10/18 07:02: PT 21.9 H, INR 1.9 Current Medications Acetaminophen (Tylenol) 650 mg PO Q4H PRN PRN PRN Reason: Mild Pain (0-3/10)/Headache Last Admin: 03/07/18 05:21 Dose: 650 mg Albuterol Sulfate (Ventolin Aerosols) 2.5 mg INHALATION Q6H.RT [facility] Last Admin: 03/10/18 08:21 Dose: 2.5 mg Amitriptyline HCl (Elavil) 25 mg PO QHS [facility] Last Admin: 03/09/18 21:05 Dose: 25 mg Amlodipine Besylate (Norvasc) 5 mg PO DAILY [facility] Last Admin: 03/10/18 08:02 Dose: 5 mg Aspirin (Ecotrin) 81 mg PO DAILY@0800 [facility] Last Admin: 03/10/18 08:02 Dose: 81 mg Atorvastatin Calcium (Lipitor) 40 mg PO QHS [facility] Last Admin: 03/09/18 21:05 Dose: 40 mg Bisacodyl (Dulcolax) 10 mg RECTAL .PRN X 1 PRN PRN Reason: Constipation Enoxaparin Sodium (Lovenox) 40 mg SC DAILY@0600 [facility] Last Admin: 03/10/18 05:28 Dose: 40 mg Hydrocortisone (Hytone) 1 applic TOPICAL 0600,2100 [facility]; Protocol Last Admin: 03/10/18 05:28 Dose: 1 applicatio Lisinopril (Zestril) 20 mg PO DAILY [facility] Last Admin: 03/10/18 08:04 Dose: 20 mg Magnesium Hydroxide (Milk Of Magnesia) 30 ml PO .PRN X 1 PRN PRN Reason: Constipation Melatonin (Melatonin) 5 mg PO 1999 [facility] Last Admin: 03/09/18 21:07 Dose: 5 mg Metoprolol Tartrate (Lopressor (Beta Valeria)) 50 mg PO BID [facility] Last Admin: 03/10/18 08:01 Dose: 50 mg Nicotine (Nicoderm Cq (Pbkc)) 14 mg TRANSDERM. DAILY [facility] Last Admin: 03/10/18 08:01 Dose: 14 mg Senna/Docusate Sodium (Senokot-S, Marcia-Colace) 2 tablet PO BID [facility] Last Admin: 03/10/18 08:02 Dose: 2 tablet Warfarin Sodium (Coumadin (Pbkc)) 5 mg PO DAILY@1700 [facility] Last Admin: 03/09/18 17:31 Dose: 5 mg Warfarin Sodium (Coumadin (Pbkc)) 2 mg PO DAILY@1700 [facility] Last Admin: 03/09/18 17:31 Dose: 2 mg Medical Necessity - Tobacco Use Smoking Status: Current some day smoker Tobacco Use: Cigarettes Assessment/Plan All Active Problems (Last Reviewed 03/02/18 @ 15:28 by Timothy Hernandez MD) CVA (cerebral vascular accident) (Acute) This is a 82-year-old gentleman with a history of hypertension, dyslipidemia and nicotine use was admitted to rehab unit after he had right MCA ischemic infarct. Patient had sudden left-sided hemiplegia and was found out of time window for TPA and neuro intervention. This was discussed with [facility] neuro interventionalist. Thereafter, conservative management was planned. 1. 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 fib. On atorvastatin 40 mg daily. On dysphagia diet puree with honey thick 2. New onset atrial fibrillation: Continue home dose of metoprolol and Norvasc. On lisinopril 20 mg daily. On Coumadin. INR is subtherapeutic currently 1.9 but supplemented by Lovenox. Once INR is more than 2, discontinue Lovenox. 3. Hypertension and dyslipidemia: She is controlled. 4. Chronic nicotine use: On nicotine patch. Smoking cessation advised. Active Medications Acetaminophen (Tylenol) 650 mg PO Q4H PRN PRN PRN Reason: Mild Pain (0-3/10)/Headache Last Admin: 03/07/18 05:21 Dose: 650 mg Albuterol Sulfate (Ventolin Aerosols) 2.5 mg INHALATION Q6H.RT [facility] Last Admin: 03/10/18 14:02 Dose: 2.5 mg Amitriptyline HCl (Elavil) 25 mg PO QHS [facility] Last Admin: 03/09/18 21:05 Dose: 25 mg Amlodipine Besylate (Norvasc) 5 mg PO DAILY [facility] Last Admin: 03/10/18 08:02 Dose: 5 mg Aspirin (Ecotrin) 81 mg PO DAILY@0800 [facility] Last Admin: 03/10/18 08:02 Dose: 81 mg Atorvastatin Calcium (Lipitor) 40 mg PO QHS [facility] Last Admin: 03/09/18 21:05 Dose: 40 mg Bisacodyl (Dulcolax) 10 mg RECTAL .PRN X 1 PRN PRN Reason: Constipation Enoxaparin Sodium (Lovenox) 40 mg SC DAILY@0600 [facility] Last Admin: 03/10/18 05:28 Dose: 40 mg Hydrocortisone (Hytone) 1 applic TOPICAL 0600,2100 [facility]; Protocol Last Admin: 03/10/18 05:28 Dose: 1 applicatio Lisinopril (Zestril) 20 mg PO DAILY [facility] Last Admin: 03/10/18 08:04 Dose: 20 mg Magnesium Hydroxide (Milk Of Magnesia) 30 ml PO .PRN X 1 PRN PRN Reason: Constipation Melatonin (Melatonin) 5 mg PO 1999 [facility] Last Admin: 03/09/18 21:07 Dose: 5 mg Metoprolol Tartrate (Lopressor (Beta Valeria)) 50 mg PO BID [facility] Last Admin: 03/10/18 08:01 Dose: 50 mg Nicotine (Nicoderm Cq (Pbkc)) 14 mg TRANSDERM. DAILY [facility] Last Admin: 03/10/18 08:01 Dose: 14 mg Senna/Docusate Sodium (Senokot-S, Marcia-Colace) 2 tablet PO BID [facility] Last Admin: 03/10/18 08:02 Dose: 2 tablet Warfarin Sodium (Coumadin (Pbkc)) 5 mg PO DAILY@1700 [facility] Last Admin: 03/10/18 17:04 Dose: 5 mg Warfarin Sodium (Coumadin (Pbkc)) 2 mg PO DAILY@1700 [facility] Last Admin: 03/10/18 17:04 Dose: 2 mg Code Visit Inpatient E&M: 63107 Subs Hosp L2
--- NOTE | 2018-03-10 16:11 | NURSING ---
Staff showered pt during day shift. Pt tolerated well.
[2018-03-10] MEDS: Atorvastatin Calcium 20 MG Tablet 40 MG PO (20:28)
[2018-03-10] MEDS: MELATONIN 10 MG TABLET 5 MG PO (20:28)
[2018-03-10] MEDS: Amitriptyline 25 MG Tablet PO (20:29)
--- NOTE | 2018-03-11 02:50 | NURSING ---
Reviewed and agree with [employer] documentation and FIMs charting.
[2018-03-11] MEDS: Enoxaparin 40 MG/0.4 ML Syringe SC (05:39)
[2018-03-11] MEDS: Hydrocortisone 2.5% Crm 1 APPLIC TOPICAL ×2 (05:40→21:44)
[2018-03-11 07:10] VITALS: PULSE 60; RESP 18
[2018-03-11] MEDS: Albuterol 2.5 MG/3 ML VIAL.NEB. INHALATION ×2 (07:10→19:05)
[2018-03-11 07:21] VITALS: BP 124/61; PULSE 60; RESP 17; TEMP 36.5; O2SAT 94
[2018-03-11 07:24] VITALS: PULSE 60
[2018-03-11] MEDS: amLODIPine 5 MG Tablet PO (07:24)
[2018-03-11] MEDS: Aspirin E.C. 81 MG Tablet PO (07:24)
[2018-03-11] MEDS: Metoprolol Tartrate 50 MG Tablet PO ×2 (07:24→21:43)
[2018-03-11] MEDS: Senna/Docusate Sodium 1 Tablet 2 TABLET PO ×2 (07:24→21:43)
[2018-03-11 07:44] LABS: Prothrombin Time (Protime)PT. 23.1 SECONDS (11.7-14.9)
[2018-03-11] MEDS: Lisinopril 20 MG Tablet PO (08:17)
--- NOTE | 2018-03-11 10:55 | PCM.PN.NEU ---
Subjective: Patient seen and examined. No issues over night. Tolerating therapy. He is able to flex his left wrist more, wiggle his fingers and lift his arm to shoulder level. On Pureed diet with Honey thicken liquids, tolerating Chatman water protocol. No issues with GI/. - Physical Exam General: Alert, Oriented x3, Cooperative HEENT: Atraumatic, PERRLA, EOMI, Normocephalic Neck: Supple, No JVD, Negative Carotid Bruits Lungs: Clear to auscultation, Normal air movement Cardiovascular: Regular rate, No murmurs Abdomen: Bowel Sounds Present, Soft, Non Tender Extremities: No edema, Capillary Refill Less than 3 Seconds Skin: No rashes, No breakdown Musculoskeletal: No Tenderness to Palpation of Joints or Extremities Neurological: Cranial nerves II-XII grossly intact Psych/Mental Status: Normal Affect, Appropriate, Alert and oriented to time, place, person, mood and affect Vital Signs Temp Pulse Resp BP Pulse Ox 97.7 F L 60 17 124/61 H 94 03/11/18 07:21 03/11/18 07:24 03/11/18 07:21 03/11/18 07:21 03/11/18 07:21 Oxygen Delivery Method Room Air Weight: 83.3 kg Body Mass Index (BMI) 29.5 Finger Stick Blood Glucose 114 Intake and Output for Last 24 Hours 03/09/18 03/10/18 03/11/18 23:59 23:59 23:59 Intake Total 600 / 600 Balance 600 / 600 Laboratory Tests Past 24 Hrs 03/11/18 05:25 PT 23.1 H INR 2.0 Active Medications Acetaminophen (Tylenol) 650 mg PO Q4H PRN PRN PRN Reason: Mild Pain (0-3/10)/Headache Last Admin: 03/07/18 05:21 Dose: 650 mg Albuterol Sulfate (Ventolin Aerosols) 2.5 mg INHALATION Q6H.RT [facility] Last Admin: 03/11/18 07:10 Dose: 2.5 mg Amitriptyline HCl (Elavil) 25 mg PO QHS [facility] Last Admin: 03/10/18 20:29 Dose: 25 mg Amlodipine Besylate (Norvasc) 5 mg PO DAILY [facility] Last Admin: 03/11/18 07:24 Dose: 5 mg Aspirin (Ecotrin) 81 mg PO DAILY@0800 [facility] Last Admin: 03/11/18 07:24 Dose: 81 mg Atorvastatin Calcium (Lipitor) 40 mg PO QHS [facility] Last Admin: 03/10/18 20:28 Dose: 40 mg Bisacodyl (Dulcolax) 10 mg RECTAL .PRN X 1 PRN PRN Reason: Constipation Hydrocortisone (Hytone) 1 applic TOPICAL 0600,2100 [facility]; Protocol Last Admin: 03/11/18 05:40 Dose: 1 applicatio Lisinopril (Zestril) 20 mg PO DAILY [facility] Last Admin: 03/11/18 08:17 Dose: 20 mg Magnesium Hydroxide (Milk Of Magnesia) 30 ml PO .PRN X 1 PRN PRN Reason: Constipation Melatonin (Melatonin) 5 mg PO 1999 [facility] Last Admin: 03/10/18 20:28 Dose: 5 mg Metoprolol Tartrate (Lopressor (Beta Valeria)) 50 mg PO BID [facility] Last Admin: 03/11/18 07:24 Dose: 50 mg Nicotine (Nicoderm Cq (Pbkc)) 14 mg TRANSDERM. DAILY [facility] Last Admin: 03/11/18 07:25 Dose: 14 mg Nystatin (Nystatin) 500,000 unit PO 4X/DAY [facility] Senna/Docusate Sodium (Senokot-S, Marcia-Colace) 2 tablet PO BID [facility] Last Admin: 03/11/18 07:24 Dose: 2 tablet Warfarin Sodium (Coumadin (Pbkc)) 5 mg PO DAILY@1700 [facility] Last Admin: 03/10/18 17:04 Dose: 5 mg Warfarin Sodium (Coumadin (Pbkc)) 2 mg PO DAILY@1700 [facility] Last Admin: 03/10/18 17:04 Dose: 2 mg Medical Necessity - Tobacco Use Smoking Status: Current some day smoker Tobacco Use: Cigarettes Assessment/Plan All Active Problems (Last Reviewed 03/02/18 @ 15:28 by Timothy Hernandez MD) CVA (cerebral vascular accident) (Acute) Debility S/P right MCA distribution infarct. Complicated by new onset atrial fibrillation. Goal of rehab is yarsani of prior level of functional independence Plan: - Therapy for gait and balance - Occupational Therapy for ADLs - Speech therapy - Diet => Pur?ed with honey thickened liquids - Insomnia => Melatonin 3mg, and Elavil an hour prior to bedtime, d/c Ativan - Bowel protocol - DVT prophylaxis => SCDs, Juancarlos hoses, Lovenox start on Coumadin 5 mg - New onset A-Fib = > INR is 1.5 - obtain Daily INRs, continue Lovenox, increase Coumadin 7mg once INR is 2 - 3 d/c Lovenox. - PRN analgesics - Moist cough, with diminished breath sounds in the bases, with scattered Rhonchi through out => Obtain CXR => chest x-ray negative for any acute processes. - [place] Chatman water protocol, repeat Swallow Evaluation in two weeks.
--- NOTE | 2018-03-11 10:58 | PN.NEURO_ITS ---
Subjective: Patient seen and examined. No issues over night. Tolerating therapy. He is able to flex his left wrist more, wiggle his fingers and lift his arm to shoulder level. On Pureed diet with Honey thicken liquids, tolerating Chatman water protocol. No issues with GI/. - Physical Exam General: Alert, Oriented x3, Cooperative HEENT: Atraumatic, PERRLA, EOMI, Normocephalic Neck: Supple, No JVD, Negative Carotid Bruits Lungs: Clear to auscultation, Normal air movement Cardiovascular: Regular rate, No murmurs Abdomen: Bowel Sounds Present, Soft, Non Tender Extremities: No edema, Capillary Refill Less than 3 Seconds Skin: No rashes, No breakdown Musculoskeletal: No Tenderness to Palpation of Joints or Extremities Neurological: Cranial nerves II-XII grossly intact Psych/Mental Status: Normal Affect, Appropriate, Alert and oriented to time, place, person, mood and affect Vital Signs Temp Pulse Resp BP Pulse Ox 97.7 F L 60 17 124/61 H 94 03/11/18 07:21 03/11/18 07:24 03/11/18 07:21 03/11/18 07:21 03/11/18 07:21 Oxygen Delivery Method Room Air Weight: 83.3 kg Body Mass Index (BMI) 29.5 Finger Stick Blood Glucose 114 Intake and Output for Last 24 Hours 03/09/18 03/10/18 03/11/18 23:59 23:59 23:59 Intake Total 600 / 600 Balance 600 / 600 Laboratory Tests Past 24 Hrs 03/11/18 05:25 PT 23.1 H INR 2.0 Active Medications Acetaminophen (Tylenol) 650 mg PO Q4H PRN PRN PRN Reason: Mild Pain (0-3/10)/Headache Last Admin: 03/07/18 05:21 Dose: 650 mg Albuterol Sulfate (Ventolin Aerosols) 2.5 mg INHALATION Q6H.RT [facility] Last Admin: 03/11/18 07:10 Dose: 2.5 mg Amitriptyline HCl (Elavil) 25 mg PO QHS [facility] Last Admin: 03/10/18 20:29 Dose: 25 mg Amlodipine Besylate (Norvasc) 5 mg PO DAILY [facility] Last Admin: 03/11/18 07:24 Dose: 5 mg Aspirin (Ecotrin) 81 mg PO DAILY@0800 [facility] Last Admin: 03/11/18 07:24 Dose: 81 mg Atorvastatin Calcium (Lipitor) 40 mg PO QHS [facility] Last Admin: 03/10/18 20:28 Dose: 40 mg Bisacodyl (Dulcolax) 10 mg RECTAL .PRN X 1 PRN PRN Reason: Constipation Hydrocortisone (Hytone) 1 applic TOPICAL 0600,2100 [facility]; Protocol Last Admin: 03/11/18 05:40 Dose: 1 applicatio Lisinopril (Zestril) 20 mg PO DAILY [facility] Last Admin: 03/11/18 08:17 Dose: 20 mg Magnesium Hydroxide (Milk Of Magnesia) 30 ml PO .PRN X 1 PRN PRN Reason: Constipation Melatonin (Melatonin) 5 mg PO 1999 [facility] Last Admin: 03/10/18 20:28 Dose: 5 mg Metoprolol Tartrate (Lopressor (Beta Valeria)) 50 mg PO BID [facility] Last Admin: 03/11/18 07:24 Dose: 50 mg Nicotine (Nicoderm Cq (Pbkc)) 14 mg TRANSDERM. DAILY [facility] Last Admin: 03/11/18 07:25 Dose: 14 mg Nystatin (Nystatin) 500,000 unit PO 4X/DAY [facility] Senna/Docusate Sodium (Senokot-S, Marcia-Colace) 2 tablet PO BID [facility] Last Admin: 03/11/18 07:24 Dose: 2 tablet Warfarin Sodium (Coumadin (Pbkc)) 5 mg PO DAILY@1700 [facility] Last Admin: 03/10/18 17:04 Dose: 5 mg Warfarin Sodium (Coumadin (Pbkc)) 2 mg PO DAILY@1700 [facility] Last Admin: 03/10/18 17:04 Dose: 2 mg Medical Necessity - Tobacco Use Smoking Status: Current some day smoker Tobacco Use: Cigarettes Assessment/Plan All Active Problems (Last Reviewed 03/02/18 @ 15:28 by Timothy Hernandez MD) CVA (cerebral vascular accident) (Acute) Debility S/P right MCA distribution infarct. Complicated by new onset atrial fibrillation. Goal of rehab is hindu of prior level of functional independence Plan: - Therapy for gait and balance - Occupational Therapy for ADLs - Speech therapy - Diet => Pur?ed with honey thickened liquids - Insomnia => Melatonin 3mg, and Elavil an hour prior to bedtime, d/c Ativan - Bowel protocol - DVT prophylaxis => SCDs, Juancarlos hoses, Lovenox start on Coumadin 5 mg - New onset A-Fib = > INR is 1.5 - obtain Daily INRs, continue Lovenox, increase Coumadin 7mg once INR is 2 - 3 d/c Lovenox. - PRN analgesics - Moist cough, with diminished breath sounds in the bases, with scattered Rhonchi through out => Obtain CXR => chest x-ray negative for any acute processes. - [place] Chatman water protocol, repeat Swallow Evaluation in two weeks.
[2018-03-11 11:29] VITALS: BMI 29.5
[2018-03-11] MEDS: NYSTATIN 500,000 UNIT/5 ML UDC 500000 UNIT PO ×3 (13:54→21:43)
[2018-03-11 19:15] VITALS: PULSE 66; RESP 18
[2018-03-11] MEDS: Amitriptyline 25 MG Tablet PO (21:42)
[2018-03-11] MEDS: Atorvastatin Calcium 20 MG Tablet 40 MG PO (21:42)
[2018-03-11] MEDS: MELATONIN 10 MG TABLET 5 MG PO (21:42)
[2018-03-11 21:43] VITALS: BP 134/62; PULSE 72
[2018-03-11 22:00] VITALS: BP 134/62; PULSE 72; RESP 18; TEMP 36.6; O2SAT 93
[2018-03-11 23:46] VITALS: BMI 29.5
--- NOTE | 2018-03-12 03:52 | NURSING ---
REVIEWED AND AGREE WITH [employer] FIM AND HANDOFF CHARTING.
[2018-03-12] MEDS: Hydrocortisone 2.5% Crm 1 APPLIC TOPICAL ×2 (05:49→21:27)
[2018-03-12 06:50] VITALS: PULSE 62; RESP 20
[2018-03-12] MEDS: Albuterol 2.5 MG/3 ML VIAL.NEB. INHALATION ×2 (06:50→18:48)
[2018-03-12 08:52] VITALS: BP 151/69; PULSE 66; RESP 24; TEMP 36.5; O2SAT 94
[2018-03-12 09:17] VITALS: BP 151/69; PULSE 66
[2018-03-12] MEDS: Metoprolol Tartrate 50 MG Tablet PO ×2 (09:17→21:27)
[2018-03-12] MEDS: Senna/Docusate Sodium 1 Tablet 2 TABLET PO ×2 (09:17→21:26)
[2018-03-12] MEDS: Lisinopril 20 MG Tablet PO (09:17)
[2018-03-12] MEDS: NYSTATIN 500,000 UNIT/5 ML UDC 500000 UNIT PO ×4 (09:17→21:32)
[2018-03-12] MEDS: amLODIPine 5 MG Tablet PO (09:17)
[2018-03-12] MEDS: Aspirin E.C. 81 MG Tablet PO (09:17)
[2018-03-12 09:44] VITALS: BMI 29.5
--- NOTE | 2018-03-12 13:48 | CASEMGMT ---
Insurance Clinical information faxed. Pending continued stay approval at this time. Auth#[id number] Petra COOK, INFECTION CONTROL PREVENTIONIST
[2018-03-12 15:29] LABS: International Normalized Ratio 2.2; Prothrombin Time (Protime)PT. 24.1 SECONDS (11.7-14.9)
--- NOTE | 2018-03-12 17:05 | PCM.PN.NEU ---
Subjective: Patient seen and examined. No new complaints. Tolerating therapy, regaining more movement in left arm and hand. Tolerating Pureed diet with Honey thicken liquids. - Physical Exam General: Alert, Oriented x3, Cooperative HEENT: Atraumatic, PERRLA, EOMI, Normocephalic Neck: Supple, No JVD, Negative Carotid Bruits Lungs: Clear to auscultation, Normal air movement Cardiovascular: Regular rate, No murmurs Abdomen: Bowel Sounds Present, Soft, Non Tender Extremities: No edema, Capillary Refill Less than 3 Seconds Skin: No rashes, No breakdown Musculoskeletal: No Tenderness to Palpation of Joints or Extremities Neurological: Cranial nerves II-XII grossly intact Psych/Mental Status: Normal Affect, Appropriate, Alert and oriented to time, place, person, mood and affect Vital Signs Temp Pulse Resp BP Pulse Ox 97.7 F L 66 24 H 151/69 H 94 03/12/18 08:52 03/12/18 09:17 03/12/18 08:52 03/12/18 09:17 03/12/18 08:52 Oxygen Delivery Method Room Air Weight: 83.3 kg Body Mass Index (BMI) 29.5 Finger Stick Blood Glucose 114 Intake and Output for Last 24 Hours 03/10/18 03/11/18 03/12/18 23:59 23:59 23:59 Intake Total 480 / 480 480 / 480 Balance 480 / 480 480 / 480 Laboratory Tests Past 24 Hrs 03/12/18 14:45 PT 24.1 H INR 2.2 Active Medications Acetaminophen (Tylenol) 650 mg PO Q4H PRN PRN PRN Reason: Mild Pain (0-3/10)/Headache Last Admin: 03/07/18 05:21 Dose: 650 mg Albuterol Sulfate (Ventolin Aerosols) 2.5 mg INHALATION Q6H.RT [facility] Last Admin: 03/12/18 13:39 Dose: Not Given Amitriptyline HCl (Elavil) 25 mg PO QHS [facility] Last Admin: 03/11/18 21:42 Dose: 25 mg Amlodipine Besylate (Norvasc) 5 mg PO DAILY [facility] Last Admin: 03/12/18 09:17 Dose: 5 mg Aspirin (Ecotrin) 81 mg PO DAILY@0800 [facility] Last Admin: 03/12/18 09:17 Dose: 81 mg Atorvastatin Calcium (Lipitor) 40 mg PO QHS [facility] Last Admin: 03/11/18 21:42 Dose: 40 mg Bisacodyl (Dulcolax) 10 mg RECTAL .PRN X 1 PRN PRN Reason: Constipation Hydrocortisone (Hytone) 1 applic TOPICAL 0600,2099 [facility]; Protocol Last Admin: 03/12/18 05:49 Dose: 1 applicatio Lisinopril (Zestril) 20 mg PO DAILY [facility] Last Admin: 03/12/18 09:17 Dose: 20 mg Magnesium Hydroxide (Milk Of Magnesia) 30 ml PO .PRN X 1 PRN PRN Reason: Constipation Melatonin (Melatonin) 5 mg PO 1999 [facility] Last Admin: 03/11/18 21:42 Dose: 5 mg Metoprolol Tartrate (Lopressor (Beta Valeria)) 50 mg PO BID [facility] Last Admin: 03/12/18 09:17 Dose: 50 mg Nicotine (Nicoderm Cq (Pbkc)) 14 mg TRANSDERM. DAILY [facility] Last Admin: 03/12/18 09:17 Dose: 14 mg Nystatin (Nystatin) 500,000 unit PO 4X/DAY [facility] Last Admin: 03/12/18 16:45 Dose: 500,000 unit Senna/Docusate Sodium (Senokot-S, Marcia-Colace) 2 tablet PO BID [facility] Last Admin: 03/12/18 09:17 Dose: 2 tablet Warfarin Sodium (Coumadin (Pbkc)) 5 mg PO DAILY@1700 [facility] Last Admin: 03/12/18 16:44 Dose: 5 mg Warfarin Sodium (Coumadin (Pbkc)) 2 mg PO DAILY@1700 [facility] Last Admin: 03/12/18 16:45 Dose: 2 mg Medical Necessity - Tobacco Use Smoking Status: Current some day smoker Tobacco Use: Cigarettes Assessment/Plan All Active Problems (Last Reviewed 03/02/18 @ 15:28 by Timothy Hernandez MD) CVA (cerebral vascular accident) (Acute) Debility S/P right MCA distribution infarct. Complicated by new onset atrial fibrillation. Goal of rehab is confucianist of prior level of functional independence Plan: - Therapy for gait and balance - Occupational Therapy for ADLs - Speech therapy - Diet => Pur?ed with honey thickened liquids - Insomnia => Melatonin 3mg, and Elavil an hour prior to bedtime, d/c Ativan - Bowel protocol - DVT prophylaxis => SCDs, Juancarlos hoses, Lovenox start on Coumadin 5 mg - New onset A-Fib = > INR is 1.5 - obtain Daily INRs, continue Lovenox, increase Coumadin 7mg once INR is 2 - 3 d/c Lovenox. - PRN analgesics - Moist cough, with diminished breath sounds in the bases, with scattered Rhonchi through out => Obtain CXR => chest x-ray negative for any acute processes. - [place] Chatman water protocol, repeat Swallow Evaluation in two weeks.
[2018-03-12 18:49] VITALS: PULSE 68; RESP 16; O2SAT 92
[2018-03-12] MEDS: MELATONIN 10 MG TABLET 5 MG PO (21:26)
[2018-03-12 21:27] VITALS: BP 128/61; PULSE 70
[2018-03-12] MEDS: Atorvastatin Calcium 20 MG Tablet 40 MG PO (21:27)
[2018-03-12 21:30] VITALS: BP 128/61; PULSE 70; RESP 20; TEMP 36.5; O2SAT 94; BMI 29.5
[2018-03-12] MEDS: Amitriptyline 25 MG Tablet PO (21:30)
[2018-03-13] MEDS: Hydrocortisone 2.5% Crm 1 APPLIC TOPICAL ×2 (05:56→21:03)
[2018-03-13 05:58] LABS: International Normalized Ratio 2.5; Prothrombin Time (Protime)PT. 27.4 SECONDS (11.7-14.9)
[2018-03-13 06:50] VITALS: O2SAT 92
[2018-03-13 07:04] VITALS: BP 114/54; PULSE 60; RESP 16; TEMP 36.9; O2SAT 94
--- NOTE | 2018-03-13 07:37 | CPS ---
pt does not take aerosols at home and does not want to take them here unless his COPD flares up.
[2018-03-13] MEDS: Senna/Docusate Sodium 1 Tablet 2 TABLET PO ×2 (07:51→21:01)
[2018-03-13] MEDS: Aspirin E.C. 81 MG Tablet PO (07:51)
[2018-03-13] MEDS: NYSTATIN 500,000 UNIT/5 ML UDC 500000 UNIT PO ×4 (07:53→21:02)
--- NOTE | 2018-03-13 09:11 | CASEMGMT ---
Insurance Continued stay approved with next update due on 03/18/18. Auth#[id number] Petra COOK, DELIVERY ROOM SUPERVISOR
[2018-03-13 09:53] VITALS: BP 122/72; PULSE 70
[2018-03-13 09:54] VITALS: BP 122/72; PULSE 70
[2018-03-13] MEDS: amLODIPine 5 MG Tablet PO (09:54)
[2018-03-13] MEDS: Lisinopril 20 MG Tablet PO (09:54)
[2018-03-13] MEDS: Metoprolol Tartrate 50 MG Tablet PO ×2 (09:54→21:01)
--- NOTE | 2018-03-13 10:53 | PN.NEURO_ITS ---
Subjective: Patient seen, no new complaints. Tolerating therapy. ROM in left arm and hand continues to improve. Denies any headaches, blurry vision or double vision. On [place] Chat[place] water protocol, tolerating a Pureed diet with honey thicken liquids. - Physical Exam General: Alert, Oriented x3, Cooperative HEENT: Atraumatic, PERRLA, EOMI, Normocephalic Neck: Supple, No JVD, Negative Carotid Bruits Lungs: Clear to auscultation, Normal air movement Cardiovascular: Regular rate, No murmurs Abdomen: Bowel Sounds Present, Soft, Non Tender Extremities: No edema, Capillary Refill Less than 3 Seconds Skin: No rashes, No breakdown Musculoskeletal: No Tenderness to Palpation of Joints or Extremities Neurological: Cranial nerves II-XII grossly intact Psych/Mental Status: Normal Affect, Appropriate Vital Signs Temp Pulse Resp BP Pulse Ox 98.5 F 70 16 122/72 H 94 03/13/18 07:04 03/13/18 09:54 03/13/18 07:04 03/13/18 09:54 03/13/18 07:04 Oxygen Delivery Method Room Air Weight: 83.3 kg Body Mass Index (BMI) 29.5 Finger Stick Blood Glucose 114 Intake and Output for Last 24 Hours 03/11/18 03/12/18 03/13/18 23:59 23:59 23:59 Intake Total 480 / 480 480 / 480 Balance 480 / 480 480 / 480 Laboratory Tests Past 24 Hrs 03/12/18 03/13/18 14:45 05:25 PT 24.1 H 27.4 H INR 2.2 2.5 Medical Necessity - Tobacco Use Smoking Status: Current some day smoker Tobacco Use: Cigarettes Assessment/Plan All Active Problems (Last Reviewed 03/02/18 @ 15:28 by Timothy Hernandez MD) CVA (cerebral vascular accident) (Acute) Debility S/P right MCA distribution infarct. Complicated by new onset atrial fibrillation. Goal of rehab is evangelical of prior level of functional independence Plan: - Therapy for gait and balance - Occupational Therapy for ADLs - Speech therapy - Diet => Pur?ed with honey thickened liquids - Insomnia => Melatonin 3mg, and Elavil an hour prior to bedtime, d/c Ativan - Bowel protocol - DVT prophylaxis => SCDs, Juancarlos hoses, Lovenox start on Coumadin 5 mg - New onset A-Fib = > INR is 1.5 - obtain Daily INRs, continue Lovenox, increase Coumadin 7mg once INR is 2 - 3 d/c Lovenox. - PRN analgesics - Moist cough, with diminished breath sounds in the bases, with scattered Rhonchi through out => Obtain CXR => chest x-ray negative for any acute processes. - [place] Chatman water protocol, repeat Swallow Evaluation in two to three weeks.
[2018-03-13 11:30] VITALS: BMI 29.5
--- NOTE | 2018-03-13 17:57 | PCM.PN.HOSP ---
Subjective: Patient was admitted with left-sided weakness and facial palsy after right MCA distribution ischemic stroke. Has improvement on muscle strength. Speech has improved. Objective: General: Alert, Oriented x3, Cooperative HEENT: Atraumatic, PERRLA, EOMI, Normocephalic Neck: Supple, No JVD, Negative Carotid Bruits Lungs: Clear to auscultation, Normal air movement Cardiovascular: Regular rate, Normal S1, Normal S2, No murmurs Abdomen: Bowel Sounds Present, Soft, Non Tender Extremities: No edema, Capillary Refill Less than 3 Seconds Skin: No rashes, No breakdown Musculoskeletal: No Tenderness to Palpation of Joints or Extremities, Arthritic Changes Neurological: - - Left upper and lower extremity weakness is 4+/5. Dysarthria and slurring has improved. Left-sided UMN facial nerve palsy Psych/Mental Status: Normal Affect, Appropriate Vitals/I&O's: Vital Signs Temp Pulse Resp BP Pulse Ox 98.5 F 70 16 122/72 H 94 03/13/18 07:04 03/13/18 09:54 03/13/18 07:04 03/13/18 09:54 03/13/18 07:04 Oxygen Delivery Method Room Air Weight: 186 lb Body Mass Index (BMI) 29.5 Finger Stick Blood Glucose 114 Intake and Output for Last 24 Hours 03/11/18 03/12/18 03/13/18 23:59 23:59 23:59 Intake Total 480 / 480 480 / 480 Balance 480 / 480 480 / 480 Laboratory Results 03/13/18 05:25: PT 27.4 H, INR 2.5 Current Medications Acetaminophen (Tylenol) 650 mg PO Q4H PRN PRN PRN Reason: Mild Pain (0-3/10)/Headache Last Admin: 03/07/18 05:21 Dose: 650 mg Albuterol Sulfate (Ventolin Aerosols) 2.5 mg INHALATION Q6H PRN PRN Reason: sob/wheezes Amitriptyline HCl (Elavil) 25 mg PO QHS [facility] Last Admin: 03/12/18 21:30 Dose: 25 mg Amlodipine Besylate (Norvasc) 5 mg PO DAILY [facility] Last Admin: 03/13/18 09:54 Dose: 5 mg Aspirin (Ecotrin) 81 mg PO DAILY@0800 [facility] Last Admin: 10/17/18 07:51 Dose: 81 mg Atorvastatin Calcium (Lipitor) 40 mg PO QHS [facility] Last Admin: 03/12/18 21:27 Dose: 40 mg Bisacodyl (Dulcolax) 10 mg RECTAL .PRN X 1 PRN PRN Reason: Constipation Hydrocortisone (Hytone) 1 applic TOPICAL 0600,2100 [facility]; Protocol Last Admin: 03/13/18 05:56 Dose: 1 applicatio Lisinopril (Zestril) 20 mg PO DAILY [facility] Last Admin: 03/13/18 09:54 Dose: 20 mg Magnesium Hydroxide (Milk Of Magnesia) 30 ml PO .PRN X 1 PRN PRN Reason: Constipation Melatonin (Melatonin) 5 mg PO 1999 [facility] Last Admin: 03/12/18 21:26 Dose: 5 mg Metoprolol Tartrate (Lopressor (Beta Valeria)) 50 mg PO BID [facility] Last Admin: 03/13/18 09:54 Dose: 50 mg Nicotine (Nicoderm Cq (Pbkc)) 14 mg TRANSDERM. DAILY [facility] Last Admin: 03/13/18 07:51 Dose: 14 mg Nystatin (Nystatin) 500,000 unit PO 4X/DAY [facility] Last Admin: 03/13/18 15:08 Dose: 500,000 unit Senna/Docusate Sodium (Senokot-S, Marcia-Colace) 2 tablet PO BID [facility] Last Admin: 03/13/18 07:51 Dose: 2 tablet Warfarin Sodium (Coumadin (Pbkc)) 5 mg PO DAILY@1700 [facility] Last Admin: 03/12/18 16:44 Dose: 5 mg Warfarin Sodium (Coumadin (Pbkc)) 2 mg PO DAILY@1700 [facility] Last Admin: 03/12/18 16:45 Dose: 2 mg Medical Necessity - Tobacco Use Smoking Status: Current some day smoker Tobacco Use: Cigarettes Assessment/Plan All Active Problems (Last Reviewed 03/02/18 @ 15:28 by Timothy Hernandez MD) CVA (cerebral vascular accident) (Acute) This is a 82-year-old gentleman with a history of hypertension, dyslipidemia and nicotine use was admitted to rehab unit after he had right MCA ischemic infarct. Patient had sudden left-sided hemiplegia and was found out of time window for TPA and neuro intervention. This was discussed with [facility] neuro interventionalist. Thereafter, conservative management was planned. 1. 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 fib. On atorvastatin 40 mg daily. On dysphagia diet puree with honey thick 2. New onset atrial fibrillation: Continue home dose of metoprolol and Norvasc. On lisinopril 20 mg daily. On Coumadin. INR is subtherapeutic currently 1.9 but supplemented by Lovenox. INR is therapeutic. 3. Hypertension and dyslipidemia: BP is controlled. 4. Chronic nicotine use: On nicotine patch. Smoking cessation advised. Active Medications Acetaminophen (Tylenol) 650 mg PO Q4H PRN PRN PRN Reason: Mild Pain (0-3/10)/Headache Last Admin: 03/07/18 05:21 Dose: 650 mg Albuterol Sulfate (Ventolin Aerosols) 2.5 mg INHALATION Q6H PRN PRN Reason: sob/wheezes Amitriptyline HCl (Elavil) 25 mg PO QHS [facility] Last Admin: 03/12/18 21:30 Dose: 25 mg Amlodipine Besylate (Norvasc) 5 mg PO DAILY [facility] Last Admin: 03/13/18 09:54 Dose: 5 mg Aspirin (Ecotrin) 81 mg PO DAILY@0800 [facility] Last Admin: 03/13/18 07:51 Dose: 81 mg Atorvastatin Calcium (Lipitor) 40 mg PO QHS [facility] Last Admin: 03/12/18 21:27 Dose: 40 mg Bisacodyl (Dulcolax) 10 mg RECTAL .PRN X 1 PRN PRN Reason: Constipation Hydrocortisone (Hytone) 1 applic TOPICAL 0600,2100 [facility]; Protocol Last Admin: 03/13/18 05:56 Dose: 1 applicatio Lisinopril (Zestril) 20 mg PO DAILY [facility] Last Admin: 03/13/18 09:54 Dose: 20 mg Magnesium Hydroxide (Milk Of Magnesia) 30 ml PO .PRN X 1 PRN PRN Reason: Constipation Melatonin (Melatonin) 5 mg PO 1999 [facility] Last Admin: 03/12/18 21:26 Dose: 5 mg Metoprolol Tartrate (Lopressor (Beta Valeria)) 50 mg PO BID [facility] Last Admin: 03/13/18 09:54 Dose: 50 mg Nicotine (Nicoderm Cq (Pbkc)) 14 mg TRANSDERM. DAILY [facility] Last Admin: 03/13/18 07:51 Dose: 14 mg Nystatin (Nystatin) 500,000 unit PO 4X/DAY [facility] Last Admin: 03/13/18 15:08 Dose: 500,000 unit Senna/Docusate Sodium (Senokot-S, Marcia-Colace) 2 tablet PO BID [facility] Last Admin: 03/13/18 07:51 Dose: 2 tablet Warfarin Sodium (Coumadin (Pbkc)) 5 mg PO DAILY@1700 [facility] Last Admin: 03/12/18 16:44 Dose: 5 mg Warfarin Sodium (Coumadin (Pbkc)) 2 mg PO DAILY@1700 [facility] Last Admin: 03/12/18 16:45 Dose: 2 mg Code Visit Inpatient E&M: 12975 Subs Hosp L2
--- NOTE | 2018-03-13 18:00 | PN_ITS ---
Subjective: Patient was admitted with left-sided weakness and facial palsy after right MCA distribution ischemic stroke. Has improvement on muscle strength. Speech has improved. Objective: General: Alert, Oriented x3, Cooperative HEENT: Atraumatic, PERRLA, EOMI, Normocephalic Neck: Supple, No JVD, Negative Carotid Bruits Lungs: Clear to auscultation, Normal air movement Cardiovascular: Regular rate, Normal S1, Normal S2, No murmurs Abdomen: Bowel Sounds Present, Soft, Non Tender Extremities: No edema, Capillary Refill Less than 3 Seconds Skin: No rashes, No breakdown Musculoskeletal: No Tenderness to Palpation of Joints or Extremities, Arthritic Changes Neurological: - - Left upper and lower extremity weakness is 4+/5. Dysarthria and slurring has improved. Left-sided UMN facial nerve palsy Psych/Mental Status: Normal Affect, Appropriate Vitals/I&O's: Vital Signs Temp Pulse Resp BP Pulse Ox 98.5 F 70 16 122/72 H 94 03/13/18 07:04 03/13/18 09:54 03/13/18 07:04 03/13/18 09:54 03/13/18 07:04 Oxygen Delivery Method Room Air Weight: 186 lb Body Mass Index (BMI) 29.5 Finger Stick Blood Glucose 114 Intake and Output for Last 24 Hours 03/11/18 03/12/18 03/13/18 23:59 23:59 23:59 Intake Total 480 / 480 480 / 480 Balance 480 / 480 480 / 480 Laboratory Results 03/13/18 05:25: PT 27.4 H, INR 2.5 Current Medications Acetaminophen (Tylenol) 650 mg PO Q4H PRN PRN PRN Reason: Mild Pain (0-3/10)/Headache Last Admin: 03/07/18 05:21 Dose: 650 mg Albuterol Sulfate (Ventolin Aerosols) 2.5 mg INHALATION Q6H PRN PRN Reason: sob/wheezes Amitriptyline HCl (Elavil) 25 mg PO QHS [facility] Last Admin: 03/12/18 21:30 Dose: 25 mg Amlodipine Besylate (Norvasc) 5 mg PO DAILY [facility] Last Admin: 03/13/18 09:54 Dose: 5 mg Aspirin (Ecotrin) 81 mg PO DAILY@0800 [facility] Last Admin: 10/17/18 07:51 Dose: 81 mg Atorvastatin Calcium (Lipitor) 40 mg PO QHS [facility] Last Admin: 03/12/18 21:27 Dose: 40 mg Bisacodyl (Dulcolax) 10 mg RECTAL .PRN X 1 PRN PRN Reason: Constipation Hydrocortisone (Hytone) 1 applic TOPICAL 0600,2100 [facility]; Protocol Last Admin: 03/13/18 05:56 Dose: 1 applicatio Lisinopril (Zestril) 20 mg PO DAILY [facility] Last Admin: 03/13/18 09:54 Dose: 20 mg Magnesium Hydroxide (Milk Of Magnesia) 30 ml PO .PRN X 1 PRN PRN Reason: Constipation Melatonin (Melatonin) 5 mg PO 1999 [facility] Last Admin: 03/12/18 21:26 Dose: 5 mg Metoprolol Tartrate (Lopressor (Beta Valeria)) 50 mg PO BID [facility] Last Admin: 03/13/18 09:54 Dose: 50 mg Nicotine (Nicoderm Cq (Pbkc)) 14 mg TRANSDERM. DAILY [facility] Last Admin: 03/13/18 07:51 Dose: 14 mg Nystatin (Nystatin) 500,000 unit PO 4X/DAY [facility] Last Admin: 03/13/18 15:08 Dose: 500,000 unit Senna/Docusate Sodium (Senokot-S, Marcia-Colace) 2 tablet PO BID [facility] Last Admin: 03/13/18 07:51 Dose: 2 tablet Warfarin Sodium (Coumadin (Pbkc)) 5 mg PO DAILY@1700 [facility] Last Admin: 03/12/18 16:44 Dose: 5 mg Warfarin Sodium (Coumadin (Pbkc)) 2 mg PO DAILY@1700 [facility] Last Admin: 03/12/18 16:45 Dose: 2 mg Medical Necessity - Tobacco Use Smoking Status: Current some day smoker Tobacco Use: Cigarettes Assessment/Plan All Active Problems (Last Reviewed 03/02/18 @ 15:28 by Timothy Hernandez MD) CVA (cerebral vascular accident) (Acute) This is a 82-year-old gentleman with a history of hypertension, dyslipidemia and nicotine use was admitted to rehab unit after he had right MCA ischemic infarct. Patient had sudden left-sided hemiplegia and was found out of time window for TPA and neuro intervention. This was discussed with [facility] neuro interventionalist. Thereafter, conservative management was planned. 1. 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 fib. On atorvastatin 40 mg daily. On dysphagia diet puree with honey thick 2. New onset atrial fibrillation: Continue home dose of metoprolol and Norvasc. On lisinopril 20 mg daily. On Coumadin. INR is subtherapeutic currently 1.9 but supplemented by Lovenox. INR is therapeutic. 3. Hypertension and dyslipidemia: BP is controlled. 4. Chronic nicotine use: On nicotine patch. Smoking cessation advised. Active Medications Acetaminophen (Tylenol) 650 mg PO Q4H PRN PRN PRN Reason: Mild Pain (0-3/10)/Headache Last Admin: 03/07/18 05:21 Dose: 650 mg Albuterol Sulfate (Ventolin Aerosols) 2.5 mg INHALATION Q6H PRN PRN Reason: sob/wheezes Amitriptyline HCl (Elavil) 25 mg PO QHS [facility] Last Admin: 03/12/18 21:30 Dose: 25 mg Amlodipine Besylate (Norvasc) 5 mg PO DAILY [facility] Last Admin: 03/13/18 09:54 Dose: 5 mg Aspirin (Ecotrin) 81 mg PO DAILY@0800 [facility] Last Admin: 03/13/18 07:51 Dose: 81 mg Atorvastatin Calcium (Lipitor) 40 mg PO QHS [facility] Last Admin: 03/12/18 21:27 Dose: 40 mg Bisacodyl (Dulcolax) 10 mg RECTAL .PRN X 1 PRN PRN Reason: Constipation Hydrocortisone (Hytone) 1 applic TOPICAL 0600,2100 [facility]; Protocol Last Admin: 03/13/18 05:56 Dose: 1 applicatio Lisinopril (Zestril) 20 mg PO DAILY [facility] Last Admin: 03/13/18 09:54 Dose: 20 mg Magnesium Hydroxide (Milk Of Magnesia) 30 ml PO .PRN X 1 PRN PRN Reason: Constipation Melatonin (Melatonin) 5 mg PO 1999 [facility] Last Admin: 03/12/18 21:26 Dose: 5 mg Metoprolol Tartrate (Lopressor (Beta Valeria)) 50 mg PO BID [facility] Last Admin: 03/13/18 09:54 Dose: 50 mg Nicotine (Nicoderm Cq (Pbkc)) 14 mg TRANSDERM. DAILY [facility] Last Admin: 03/13/18 07:51 Dose: 14 mg Nystatin (Nystatin) 500,000 unit PO 4X/DAY [facility] Last Admin: 03/13/18 15:08 Dose: 500,000 unit Senna/Docusate Sodium (Senokot-S, Marcia-Colace) 2 tablet PO BID [facility] Last Admin: 03/13/18 07:51 Dose: 2 tablet Warfarin Sodium (Coumadin (Pbkc)) 5 mg PO DAILY@1700 [facility] Last Admin: 03/12/18 16:44 Dose: 5 mg Warfarin Sodium (Coumadin (Pbkc)) 2 mg PO DAILY@1700 [facility] Last Admin: 03/12/18 16:45 Dose: 2 mg Code Visit Inpatient E&M: 60511 Subs Hosp L2
[2018-03-13 21:00] VITALS: BP 127/52; PULSE 67; RESP 14; TEMP 36.7; O2SAT 93; BMI 29.5
[2018-03-13 21:01] VITALS: BP 127/52; PULSE 67
[2018-03-13] MEDS: MELATONIN 10 MG TABLET 5 MG PO (21:01)
[2018-03-13] MEDS: Atorvastatin Calcium 20 MG Tablet 40 MG PO (21:01)
[2018-03-13] MEDS: Amitriptyline 25 MG Tablet PO (21:02)
--- NOTE | 2018-03-14 04:46 | NURSING ---
Reviewed and agree with [employer] documentation and [facility] charting.
[2018-03-14 06:06] LABS: International Normalized Ratio 2.6; Prothrombin Time (Protime)PT. 27.7 SECONDS (11.7-14.9)
[2018-03-14] MEDS: Hydrocortisone 2.5% Crm 1 APPLIC TOPICAL ×2 (06:15→21:10)
[2018-03-14 07:47] VITALS: BP 113/59; PULSE 63; RESP 18; TEMP 36.4; O2SAT 93
[2018-03-14] MEDS: Aspirin E.C. 81 MG Tablet PO (07:57)
[2018-03-14 09:59] VITALS: PULSE 75
[2018-03-14] MEDS: Metoprolol Tartrate 50 MG Tablet PO ×2 (09:59→21:10)
[2018-03-14] MEDS: Senna/Docusate Sodium 1 Tablet 2 TABLET PO ×2 (10:00→21:09)
[2018-03-14] MEDS: NYSTATIN 500,000 UNIT/5 ML UDC 500000 UNIT PO ×4 (10:00→21:09)
--- NOTE | 2018-03-14 10:05 | CASEMGMT ---
Team meeting held. Patient present as well as patient family. No Discharge date set at this time. Patient has an insurance update due on 03/18/18 and aware that continued stay approval is not guaranteed. Patient plans to discharge to home with daughter as a long-term plan but if insurance does not approve another week patient plans to transition to a fdc facility, pending insurance approval. Patient first choice of facility would be the Transitional Care Unit. Patient plans to continue with further care and treatment on the Inpatient Rehab Unit at this time. Support given. Telephone call to Kay VALLES. This social worker aide making Kay aware of possible referral for next week pending insurance denial and then approval. Will continue to follow. Petra COOK, [employer]
--- NOTE | 2018-03-14 11:21 | PCM.PN.NEU ---
Subjective: Staffed in team meeting. Family at bedside, questions answered. With Physical therapy, he is minimal assist to get in and out of bed. He is Minimal to contact guard to go from a sit to stand specially when tired or he has been sitting for a while. He is walking 65 feet using the Ronan-walker, the plan is to transition to a Quad cane since he is doing so well with the Ronan-walker. He has walked up and down 5 steps using 1 hand rail at minimal assistance. With Occupational therapy, He is moderate assist for bathing 2/2 balance issues and for safety. With upper body dressing he requires minimal assistance, specially with getting his shirt on using one hand. With lower body he is doing well requires assistance with getting and tieing his shoes. He is doing well with toileting transfers and hygiene. With Speech he remains on a Pureed diet with Honey thicken liquids, will trail some soft solids. tolerating Chatman water protocol but still having overt coughing at times. With the cogitative working on executive function deficits, has some mild left sided deficits. Will continue to work on Oral motor exercises. With Nursing his pain is well controlled. BP was low this morning but has been doing well other flanagan. Will re-team him again next . - Physical Exam General: Alert, Oriented x3, Cooperative HEENT: Atraumatic, PERRLA, EOMI, Normocephalic Neck: Supple, No JVD, Negative Carotid Bruits Lungs: Clear to auscultation, Normal air movement Cardiovascular: Regular rate, No murmurs Abdomen: Bowel Sounds Present, Soft, Non Tender Extremities: No edema, Capillary Refill Less than 3 Seconds Skin: No rashes, No breakdown Musculoskeletal: No Tenderness to Palpation of Joints or Extremities Neurological: Cranial nerves II-XII grossly intact Psych/Mental Status: Normal Affect, Appropriate, Alert and oriented to time, place, person, mood and affect Vital Signs Temp Pulse Resp BP Pulse Ox 97.6 F L 75 18 113/59 L 93 03/14/18 07:47 03/14/18 09:59 03/14/18 07:47 03/14/18 07:47 03/14/18 07:47 Oxygen Delivery Method Room Air Weight: 84.368 kg Body Mass Index (BMI) 29.5 Finger Stick Blood Glucose 114 Intake and Output for Last 24 Hours 03/12/18 03/13/18 03/14/18 23:59 23:59 23:59 Intake Total 480 / 480 240 / 240 Balance 480 / 480 240 / 240 Laboratory Tests Past 24 Hrs 03/14/18 05:40 PT 27.7 H INR 2.6 Active Medications Acetaminophen (Tylenol) 650 mg PO Q4H PRN PRN PRN Reason: Mild Pain (0-3/10)/Headache Last Admin: 03/07/18 05:21 Dose: 650 mg Albuterol Sulfate (Ventolin Aerosols) 2.5 mg INHALATION Q6H PRN PRN Reason: sob/wheezes Amitriptyline HCl (Elavil) 25 mg PO QHS [facility] Last Admin: 03/13/18 21:02 Dose: 25 mg Amlodipine Besylate (Norvasc) 5 mg PO DAILY [facility] Last Admin: 03/14/18 09:09 Dose: Not Given Aspirin (Ecotrin) 81 mg PO DAILY@0800 [facility] Last Admin: 03/14/18 07:57 Dose: 81 mg Atorvastatin Calcium (Lipitor) 40 mg PO QHS [facility] Last Admin: 03/13/18 21:01 Dose: 40 mg Bisacodyl (Dulcolax) 10 mg RECTAL .PRN X 1 PRN PRN Reason: Constipation Hydrocortisone (Hytone) 1 applic TOPICAL 0600,2099 [facility]; Protocol Last Admin: 03/14/18 06:15 Dose: 1 applicatio Lisinopril (Zestril) 20 mg PO DAILY [facility] Last Admin: 03/14/18 09:09 Dose: Not Given Magnesium Hydroxide (Milk Of Magnesia) 30 ml PO .PRN X 1 PRN PRN Reason: Constipation Melatonin (Melatonin) 5 mg PO 1999 [facility] Last Admin: 03/13/18 21:01 Dose: 5 mg Metoprolol Tartrate (Lopressor (Beta Valeria)) 50 mg PO BID [facility] Last Admin: 03/14/18 09:59 Dose: 50 mg Nicotine (Nicoderm Cq (Pbkc)) 14 mg TRANSDERM. DAILY [facility] Last Admin: 03/14/18 10:00 Dose: 14 mg Nystatin (Nystatin) 500,000 unit PO 4X/DAY [facility] Last Admin: 03/14/18 10:00 Dose: 500,000 unit Senna/Docusate Sodium (Senokot-S, Marcia-Colace) 2 tablet PO BID [facility] Last Admin: 03/14/18 10:00 Dose: 2 tablet Warfarin Sodium (Coumadin (Pbkc)) 5 mg PO DAILY@1700 [facility] Last Admin: 03/13/18 18:29 Dose: 5 mg Warfarin Sodium (Coumadin (Pbkc)) 2 mg PO DAILY@1700 [facility] Last Admin: 03/13/18 18:29 Dose: 2 mg Medical Necessity - Tobacco Use Smoking Status: Current some day smoker Tobacco Use: Cigarettes Assessment/Plan All Active Problems (Last Reviewed 03/02/18 @ 15:28 by Timothy Hernandez MD) CVA (cerebral vascular accident) (Acute) Debility S/P right MCA distribution infarct. Complicated by new onset atrial fibrillation. Goal of rehab is orthodoxy of prior level of functional independence Plan: - Therapy for gait and balance - Occupational Therapy for ADLs - Speech therapy - Diet => Pur?ed with honey thickened liquids - Insomnia => Melatonin 3mg, and Elavil an hour prior to bedtime, d/c Ativan - Bowel protocol - DVT prophylaxis => SCDs, Juancarlos hoses, Lovenox start on Coumadin 5 mg - New onset A-Fib = > INR is 1.5 - obtain Daily INRs, continue Lovenox, increase Coumadin 7mg once INR is 2 - 3 d/c Lovenox. - PRN analgesics - Moist cough, with diminished breath sounds in the bases, with scattered Rhonchi through out => Obtain CXR => chest x-ray negative for any acute processes. - Burden Chatman water protocol, repeat Swallow Evaluation in two to three weeks.
--- NOTE | 2018-03-14 12:35 | CPS ---
patient not in room at this time for PEP therapy.
--- NOTE | 2018-03-14 15:44 | PCM.PN.HOSP ---
Subjective: Patient is doing good with physical therapy. Blood pressure is controlled. Patient has bowel movement. Vitals/I&O's: Vital Signs Temp Pulse Resp BP Pulse Ox 97.6 F L 75 18 113/59 L 93 03/14/18 07:47 03/14/18 09:59 03/14/18 07:47 03/14/18 07:47 03/14/18 07:47 Oxygen Delivery Method Room Air Weight: 186 lb Body Mass Index (BMI) 29.5 Finger Stick Blood Glucose 114 Intake and Output for Last 24 Hours 03/12/18 03/13/18 03/14/18 23:59 23:59 23:59 Intake Total 480 / 480 240 / 240 Balance 480 / 480 240 / 240 General: Alert, Oriented x3, Cooperative HEENT: Atraumatic, PERRLA, EOMI, Normocephalic Neck: Supple, No JVD, Negative Carotid Bruits Lungs: Clear to auscultation, Normal air movement Cardiovascular: Regular rate, No murmurs Abdomen: Bowel Sounds Present, Soft, Non Tender, Non-Distended, - Extremities: No edema, Capillary Refill Less than 3 Seconds Skin: No rashes, No breakdown Musculoskeletal: No Tenderness to Palpation of Joints or Extremities Neurological: Deep Tendon Reflexes 2+/4 and Symmetrical, - - Mild left upper and lower extremity weakness. Dysarthria with slurring. 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 Psych/Mental Status: Normal Affect, Appropriate Laboratory Results 03/14/18 05:40: PT 27.7 H, INR 2.6 Current Medications Acetaminophen (Tylenol) 650 mg PO Q4H PRN PRN PRN Reason: Mild Pain (0-3/10)/Headache Last Admin: 03/07/18 05:21 Dose: 650 mg Albuterol Sulfate (Ventolin Aerosols) 2.5 mg INHALATION Q6H PRN PRN Reason: sob/wheezes Amitriptyline HCl (Elavil) 25 mg PO QHS [facility] Last Admin: 03/13/18 21:02 Dose: 25 mg Amlodipine Besylate (Norvasc) 5 mg PO DAILY [facility] Last Admin: 03/14/18 09:09 Dose: Not Given Aspirin (Ecotrin) 81 mg PO DAILY@0800 [facility] Last Admin: 03/14/18 07:57 Dose: 81 mg Atorvastatin Calcium (Lipitor) 40 mg PO QHS [facility] Last Admin: 03/13/18 21:01 Dose: 40 mg Bisacodyl (Dulcolax) 10 mg RECTAL .PRN X 1 PRN PRN Reason: Constipation Hydrocortisone (Hytone) 1 applic TOPICAL 0600,2099 [facility]; Protocol Last Admin: 03/14/18 06:15 Dose: 1 applicatio Lisinopril (Zestril) 20 mg PO DAILY [facility] Last Admin: 03/14/18 09:09 Dose: Not Given Magnesium Hydroxide (Milk Of Magnesia) 30 ml PO .PRN X 1 PRN PRN Reason: Constipation Melatonin (Melatonin) 5 mg PO 1999 [facility] Last Admin: 03/13/18 21:01 Dose: 5 mg Metoprolol Tartrate (Lopressor (Beta Valeria)) 50 mg PO BID [facility] Last Admin: 03/14/18 09:59 Dose: 50 mg Nicotine (Nicoderm Cq (Pbkc)) 14 mg TRANSDERM. DAILY [facility] Last Admin: 03/14/18 10:00 Dose: 14 mg Nystatin (Nystatin) 500,000 unit PO 4X/DAY [facility] Last Admin: 03/14/18 14:11 Dose: 500,000 unit Senna/Docusate Sodium (Senokot-S, Marcia-Colace) 2 tablet PO BID [facility] Last Admin: 03/14/18 10:00 Dose: 2 tablet Warfarin Sodium (Coumadin (Pbkc)) 5 mg PO DAILY@1700 [facility] Last Admin: 03/13/18 18:29 Dose: 5 mg Warfarin Sodium (Coumadin (Pbkc)) 2 mg PO DAILY@1700 [facility] Last Admin: 03/13/18 18:29 Dose: 2 mg Medical Necessity - Tobacco Use Smoking Status: Current some day smoker Tobacco Use: Cigarettes Assessment/Plan All Active Problems (Last Reviewed 03/02/18 @ 15:28 by Timothy Hernandez MD) CVA (cerebral vascular accident) (Acute) This is a 82-year-old gentleman with a history of hypertension, dyslipidemia and nicotine use was admitted to rehab unit after he had right MCA ischemic infarct. Patient had sudden left-sided hemiplegia and was found out of time window for TPA and neuro intervention. This was discussed with [facility] neuro interventionalist. Thereafter, conservative management was planned. 1. 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 fib. On atorvastatin 40 mg daily. On dysphagia diet puree with honey thick. 2. New onset atrial fibrillation: Continue home dose of metoprolol and Norvasc. On lisinopril 20 mg daily. INR is therapeutic. On Coumadin 7 mg daily 3. Hypertension and dyslipidemia: BP is controlled. 4. Chronic nicotine use: On nicotine patch. Smoking cessation advised. Laboratory Results 03/14/18 05:40: PT 27.7 H, INR 2.6 Active Medications Acetaminophen (Tylenol) 650 mg PO Q4H PRN PRN PRN Reason: Mild Pain (0-3/10)/Headache Last Admin: 03/07/18 05:21 Dose: 650 mg Albuterol Sulfate (Ventolin Aerosols) 2.5 mg INHALATION Q6H PRN PRN Reason: sob/wheezes Amitriptyline HCl (Elavil) 25 mg PO QHS [facility] Last Admin: 03/12/18 21:30 Dose: 25 mg Amlodipine Besylate (Norvasc) 5 mg PO DAILY [facility] Last Admin: 03/13/18 09:54 Dose: 5 mg Aspirin (Ecotrin) 81 mg PO DAILY@0800 [facility] Last Admin: 03/13/18 07:51 Dose: 81 mg Atorvastatin Calcium (Lipitor) 40 mg PO QHS [facility] Last Admin: 03/12/18 21:27 Dose: 40 mg Bisacodyl (Dulcolax) 10 mg RECTAL .PRN X 1 PRN PRN Reason: Constipation Hydrocortisone (Hytone) 1 applic TOPICAL 0600,2100 [facility]; Protocol Last Admin: 03/13/18 05:56 Dose: 1 applicatio Lisinopril (Zestril) 20 mg PO DAILY [facility] Last Admin: 03/13/18 09:54 Dose: 20 mg Magnesium Hydroxide (Milk Of Magnesia) 30 ml PO .PRN X 1 PRN PRN Reason: Constipation Melatonin (Melatonin) 5 mg PO 1999 [facility] Last Admin: 03/12/18 21:26 Dose: 5 mg Metoprolol Tartrate (Lopressor (Beta Valeria)) 50 mg PO BID [facility] Last Admin: 03/13/18 09:54 Dose: 50 mg Nicotine (Nicoderm Cq (Pbkc)) 14 mg TRANSDERM. DAILY [facility] Last Admin: 03/13/18 07:51 Dose: 14 mg Nystatin (Nystatin) 500,000 unit PO 4X/DAY [facility] Last Admin: 03/13/18 15:08 Dose: 500,000 unit Senna/Docusate Sodium (Senokot-S, Marcia-Colace) 2 tablet PO BID [facility] Last Admin: 03/13/18 07:51 Dose: 2 tablet Warfarin Sodium (Coumadin (Pbkc)) 5 mg PO DAILY@1700 [facility] Last Admin: 03/12/18 16:44 Dose: 5 mg Warfarin Sodium (Coumadin (Pbkc)) 2 mg PO DAILY@1700 [facility] Last Admin: 03/12/18 16:45 Dose: 2 mg Code Visit Inpatient E&M: 11150 Subs Hosp L2
--- NOTE | 2018-03-14 15:47 | PN_ITS ---
Subjective: Patient is doing good with physical therapy. Blood pressure is controlled. Patient has bowel movement. Vitals/I&O's: Vital Signs Temp Pulse Resp BP Pulse Ox 97.6 F L 75 18 113/59 L 93 03/14/18 07:47 03/14/18 09:59 03/14/18 07:47 03/14/18 07:47 03/14/18 07:47 Oxygen Delivery Method Room Air Weight: 186 lb Body Mass Index (BMI) 29.5 Finger Stick Blood Glucose 114 Intake and Output for Last 24 Hours 03/12/18 03/13/18 03/14/18 23:59 23:59 23:59 Intake Total 480 / 480 240 / 240 Balance 480 / 480 240 / 240 General: Alert, Oriented x3, Cooperative HEENT: Atraumatic, PERRLA, EOMI, Normocephalic Neck: Supple, No JVD, Negative Carotid Bruits Lungs: Clear to auscultation, Normal air movement Cardiovascular: Regular rate, No murmurs Abdomen: Bowel Sounds Present, Soft, Non Tender, Non-Distended, - Extremities: No edema, Capillary Refill Less than 3 Seconds Skin: No rashes, No breakdown Musculoskeletal: No Tenderness to Palpation of Joints or Extremities Neurological: Deep Tendon Reflexes 2+/4 and Symmetrical, - - Mild left upper and lower extremity weakness. Dysarthria with slurring. 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 Psych/Mental Status: Normal Affect, Appropriate Laboratory Results 03/14/18 05:40: PT 27.7 H, INR 2.6 Current Medications Acetaminophen (Tylenol) 650 mg PO Q4H PRN PRN PRN Reason: Mild Pain (0-3/10)/Headache Last Admin: 03/07/18 05:21 Dose: 650 mg Albuterol Sulfate (Ventolin Aerosols) 2.5 mg INHALATION Q6H PRN PRN Reason: sob/wheezes Amitriptyline HCl (Elavil) 25 mg PO QHS [facility] Last Admin: 03/13/18 21:02 Dose: 25 mg Amlodipine Besylate (Norvasc) 5 mg PO DAILY [facility] Last Admin: 03/14/18 09:09 Dose: Not Given Aspirin (Ecotrin) 81 mg PO DAILY@0800 [facility] Last Admin: 03/14/18 07:57 Dose: 81 mg Atorvastatin Calcium (Lipitor) 40 mg PO QHS [facility] Last Admin: 03/13/18 21:01 Dose: 40 mg Bisacodyl (Dulcolax) 10 mg RECTAL .PRN X 1 PRN PRN Reason: Constipation Hydrocortisone (Hytone) 1 applic TOPICAL 0600,2099 [facility]; Protocol Last Admin: 03/14/18 06:15 Dose: 1 applicatio Lisinopril (Zestril) 20 mg PO DAILY [facility] Last Admin: 03/14/18 09:09 Dose: Not Given Magnesium Hydroxide (Milk Of Magnesia) 30 ml PO .PRN X 1 PRN PRN Reason: Constipation Melatonin (Melatonin) 5 mg PO 1999 [facility] Last Admin: 03/13/18 21:01 Dose: 5 mg Metoprolol Tartrate (Lopressor (Beta Valeria)) 50 mg PO BID [facility] Last Admin: 03/14/18 09:59 Dose: 50 mg Nicotine (Nicoderm Cq (Pbkc)) 14 mg TRANSDERM. DAILY [facility] Last Admin: 03/14/18 10:00 Dose: 14 mg Nystatin (Nystatin) 500,000 unit PO 4X/DAY [facility] Last Admin: 03/14/18 14:11 Dose: 500,000 unit Senna/Docusate Sodium (Senokot-S, Marcia-Colace) 2 tablet PO BID [facility] Last Admin: 03/14/18 10:00 Dose: 2 tablet Warfarin Sodium (Coumadin (Pbkc)) 5 mg PO DAILY@1700 [facility] Last Admin: 03/13/18 18:29 Dose: 5 mg Warfarin Sodium (Coumadin (Pbkc)) 2 mg PO DAILY@1700 [facility] Last Admin: 03/13/18 18:29 Dose: 2 mg Medical Necessity - Tobacco Use Smoking Status: Current some day smoker Tobacco Use: Cigarettes Assessment/Plan All Active Problems (Last Reviewed 03/02/18 @ 15:28 by Timothy Hernandez MD) CVA (cerebral vascular accident) (Acute) This is a 82-year-old gentleman with a history of hypertension, dyslipidemia and nicotine use was admitted to rehab unit after he had right MCA ischemic infarct. Patient had sudden left-sided hemiplegia and was found out of time window for TPA and neuro intervention. This was discussed with [facility] neuro interventionalist. Thereafter, conservative management was planned. 1. 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 fib. On atorvastatin 40 mg daily. On dysphagia diet puree with honey thick. 2. New onset atrial fibrillation: Continue home dose of metoprolol and Norvasc. On lisinopril 20 mg daily. INR is therapeutic. On Coumadin 7 mg daily 3. Hypertension and dyslipidemia: BP is controlled. 4. Chronic nicotine use: On nicotine patch. Smoking cessation advised. Laboratory Results 03/14/18 05:40: PT 27.7 H, INR 2.6 Active Medications Acetaminophen (Tylenol) 650 mg PO Q4H PRN PRN PRN Reason: Mild Pain (0-3/10)/Headache Last Admin: 03/07/18 05:21 Dose: 650 mg Albuterol Sulfate (Ventolin Aerosols) 2.5 mg INHALATION Q6H PRN PRN Reason: sob/wheezes Amitriptyline HCl (Elavil) 25 mg PO QHS [facility] Last Admin: 03/12/18 21:30 Dose: 25 mg Amlodipine Besylate (Norvasc) 5 mg PO DAILY [facility] Last Admin: 03/13/18 09:54 Dose: 5 mg Aspirin (Ecotrin) 81 mg PO DAILY@0800 [facility] Last Admin: 03/13/18 07:51 Dose: 81 mg Atorvastatin Calcium (Lipitor) 40 mg PO QHS [facility] Last Admin: 03/12/18 21:27 Dose: 40 mg Bisacodyl (Dulcolax) 10 mg RECTAL .PRN X 1 PRN PRN Reason: Constipation Hydrocortisone (Hytone) 1 applic TOPICAL 0600,2100 [facility]; Protocol Last Admin: 03/13/18 05:56 Dose: 1 applicatio Lisinopril (Zestril) 20 mg PO DAILY [facility] Last Admin: 03/13/18 09:54 Dose: 20 mg Magnesium Hydroxide (Milk Of Magnesia) 30 ml PO .PRN X 1 PRN PRN Reason: Constipation Melatonin (Melatonin) 5 mg PO 1999 [facility] Last Admin: 03/12/18 21:26 Dose: 5 mg Metoprolol Tartrate (Lopressor (Beta Valeria)) 50 mg PO BID [facility] Last Admin: 03/13/18 09:54 Dose: 50 mg Nicotine (Nicoderm Cq (Pbkc)) 14 mg TRANSDERM. DAILY [facility] Last Admin: 03/13/18 07:51 Dose: 14 mg Nystatin (Nystatin) 500,000 unit PO 4X/DAY [facility] Last Admin: 03/13/18 15:08 Dose: 500,000 unit Senna/Docusate Sodium (Senokot-S, Marcia-Colace) 2 tablet PO BID [facility] Last Admin: 03/13/18 07:51 Dose: 2 tablet Warfarin Sodium (Coumadin (Pbkc)) 5 mg PO DAILY@1700 [facility] Last Admin: 03/12/18 16:44 Dose: 5 mg Warfarin Sodium (Coumadin (Pbkc)) 2 mg PO DAILY@1700 [facility] Last Admin: 03/12/18 16:45 Dose: 2 mg Code Visit Inpatient E&M: 31541 Subs Hosp L2
[2018-03-14 17:00] VITALS: BMI 29.5
[2018-03-14 19:55] VITALS: BP 130/60; PULSE 74; RESP 14; TEMP 36.7; O2SAT 95
[2018-03-14 20:50] VITALS: PULSE 74; O2SAT 95; BMI 29.5
[2018-03-14] MEDS: Atorvastatin Calcium 20 MG Tablet 40 MG PO (21:08)
[2018-03-14] MEDS: MELATONIN 10 MG TABLET 5 MG PO (21:08)
[2018-03-14] MEDS: Amitriptyline 25 MG Tablet PO (21:09)
[2018-03-14 21:10] VITALS: BP 130/60; PULSE 74
--- NOTE | 2018-03-15 03:43 | NURSING ---
Reviewed and agree with BUCKET WASH OPERATOR documentation and FIMs charting.
[2018-03-15] MEDS: Hydrocortisone 2.5% Crm 1 APPLIC TOPICAL ×2 (05:54→20:32)
[2018-03-15 06:34] LABS: International Normalized Ratio 2.4; Prothrombin Time (Protime)PT. 26.5 SECONDS (11.7-14.9)
[2018-03-15] MEDS: Aspirin E.C. 81 MG Tablet PO (08:21)
[2018-03-15] MEDS: Senna/Docusate Sodium 1 Tablet 2 TABLET PO ×2 (08:24→20:33)
[2018-03-15] MEDS: NYSTATIN 500,000 UNIT/5 ML UDC 500000 UNIT PO ×4 (08:24→20:32)
[2018-03-15 08:28] VITALS: BP 122/65; PULSE 71
[2018-03-15] MEDS: amLODIPine 5 MG Tablet PO (08:28)
[2018-03-15] MEDS: Metoprolol Tartrate 50 MG Tablet PO ×2 (08:28→20:32)
[2018-03-15] MEDS: Lisinopril 20 MG Tablet PO (08:28)
[2018-03-15 08:42] VITALS: BP 122/65; PULSE 71; RESP 18; TEMP 36.7; O2SAT 95
[2018-03-15 17:00] VITALS: BMI 29.5
[2018-03-15 20:29] VITALS: BP 126/66; PULSE 70; RESP 16; TEMP 36.8; O2SAT 95
[2018-03-15 20:32] VITALS: BP 126/66; PULSE 68
[2018-03-15] MEDS: Atorvastatin Calcium 20 MG Tablet 40 MG PO (20:33)
[2018-03-15] MEDS: MELATONIN 10 MG TABLET 5 MG PO (20:34)
[2018-03-15] MEDS: Amitriptyline 25 MG Tablet PO (20:34)
[2018-03-16] MEDS: Hydrocortisone 2.5% Crm 1 APPLIC TOPICAL ×2 (06:12→20:20)
[2018-03-16 07:33] VITALS: BP 131/60; PULSE 64; RESP 18; TEMP 36.6; O2SAT 92
[2018-03-16 07:37] VITALS: BP 131/60; PULSE 64
[2018-03-16] MEDS: Metoprolol Tartrate 50 MG Tablet PO ×2 (07:37→20:19)
[2018-03-16] MEDS: Aspirin E.C. 81 MG Tablet PO (07:37)
[2018-03-16] MEDS: amLODIPine 5 MG Tablet PO (07:37)
[2018-03-16] MEDS: Senna/Docusate Sodium 1 Tablet 2 TABLET PO ×2 (07:37→20:20)
[2018-03-16] MEDS: Lisinopril 20 MG Tablet PO (07:37)
[2018-03-16] MEDS: NYSTATIN 500,000 UNIT/5 ML UDC 500000 UNIT PO ×4 (07:39→20:20)
[2018-03-16 09:16] LABS: International Normalized Ratio 2.5; Prothrombin Time (Protime)PT. 27.1 SECONDS (11.7-14.9)
[2018-03-16 12:20] VITALS: BMI 29.5
[2018-03-16 20:18] VITALS: BP 127/62; PULSE 74; RESP 18; TEMP 36.8; O2SAT 94
[2018-03-16 20:19] VITALS: BP 127/62; PULSE 74
[2018-03-16] MEDS: MELATONIN 10 MG TABLET 5 MG PO (20:19)
[2018-03-16] MEDS: Atorvastatin Calcium 20 MG Tablet 40 MG PO (20:19)
[2018-03-16] MEDS: Amitriptyline 25 MG Tablet PO (20:19)
[2018-03-16 23:06] VITALS: BMI 29.5
--- NOTE | 2018-03-16 23:46 | NURSING ---
Reviewed and agree with LPNs fims and handoff
[2018-03-17] MEDS: Hydrocortisone 2.5% Crm 1 APPLIC TOPICAL ×2 (06:58→21:06)
[2018-03-17 07:39] VITALS: BP 129/61; PULSE 64; RESP 18; TEMP 36.8; O2SAT 95
[2018-03-17 07:53] LABS: International Normalized Ratio 2.7
[2018-03-17 08:08] VITALS: BP 129/61; PULSE 64
[2018-03-17] MEDS: Aspirin E.C. 81 MG Tablet PO (08:08)
[2018-03-17] MEDS: Senna/Docusate Sodium 1 Tablet 2 TABLET PO ×2 (08:08→21:07)
[2018-03-17] MEDS: Lisinopril 20 MG Tablet PO (08:08)
[2018-03-17] MEDS: Metoprolol Tartrate 50 MG Tablet PO ×2 (08:08→21:07)
[2018-03-17] MEDS: amLODIPine 5 MG Tablet PO (08:08)
[2018-03-17] MEDS: NYSTATIN 500,000 UNIT/5 ML UDC 500000 UNIT PO ×4 (08:09→21:07)
--- NOTE | 2018-03-17 15:14 | NURSING ---
pt ambulating in hallways using quad cane x1 assist with staff and wheelchair follow. Pt tolerated well. Arm sling to left arm in place and gait belt used at all times during ambulation.
[2018-03-17 17:00] VITALS: BMI 29.5
[2018-03-17] MEDS: Amitriptyline 25 MG Tablet PO (21:06)
[2018-03-17] MEDS: MELATONIN 10 MG TABLET 5 MG PO (21:06)
[2018-03-17 21:07] VITALS: BP 153/71; PULSE 80
[2018-03-17] MEDS: Atorvastatin Calcium 20 MG Tablet 40 MG PO (21:07)
[2018-03-17 21:45] VITALS: BP 153/71; PULSE 80; RESP 18; TEMP 36.5; O2SAT 93
[2018-03-17 22:12] VITALS: BMI 29.5
--- NOTE | 2018-03-17 22:36 | NURSING ---
Reviewed and agree with LPNs fims and handoffs
[2018-03-18 05:35] LABS: Prothrombin Time (Protime)PT. 31.1 SECONDS (11.7-14.9)
[2018-03-18] MEDS: Hydrocortisone 2.5% Crm 1 APPLIC TOPICAL ×2 (06:10→21:14)
--- NOTE | 2018-03-18 09:02 | PCM.PN.NEU ---
Subjective: Patient seen and examined. No new complaints. Tolerating physical therapy, TUG test he was able to do it in 30.1 seconds, which is WNL for his age. Denies any blurry vision, double vision, or headaches. No issues with GI/. - Physical Exam General: Alert, Oriented x3, Cooperative HEENT: Atraumatic, PERRLA, EOMI, Normocephalic Neck: Supple, No JVD, Negative Carotid Bruits Lungs: Clear to auscultation, Normal air movement Cardiovascular: Regular rate, No murmurs Abdomen: Bowel Sounds Present, Soft, Non Tender Extremities: No edema, Capillary Refill Less than 3 Seconds Skin: No rashes, No breakdown Musculoskeletal: No Tenderness to Palpation of Joints or Extremities Neurological: Cranial nerves II-XII grossly intact Psych/Mental Status: Normal Affect, Appropriate, Alert and oriented to time, place, person, mood and affect Vital Signs Temp Pulse Resp BP Pulse Ox 97.7 F L 80 18 153/71 H 93 03/17/18 21:45 03/17/18 21:45 03/17/18 21:45 03/17/18 21:45 03/17/18 21:45 Oxygen Delivery Method Room Air Weight: 84.368 kg Body Mass Index (BMI) 29.5 Finger Stick Blood Glucose 114 Intake and Output for Last 24 Hours 03/16/18 03/17/18 03/18/18 23:59 23:59 23:59 Intake Total 360 / 360 Balance 360 / 360 Laboratory Tests Past 24 Hrs 03/18/18 05:05 PT 31.1 H INR 3.0 Active Medications Acetaminophen (Tylenol) 650 mg PO Q4H PRN PRN PRN Reason: Mild Pain (0-3/10)/Headache Last Admin: 03/07/18 05:21 Dose: 650 mg Albuterol Sulfate (Ventolin Aerosols) 2.5 mg INHALATION Q6H PRN PRN Reason: sob/wheezes Amitriptyline HCl (Elavil) 25 mg PO QHS [facility] Last Admin: 03/17/18 21:06 Dose: 25 mg Amlodipine Besylate (Norvasc) 5 mg PO DAILY [facility] Last Admin: 03/18/18 12:25 Dose: 5 mg Aspirin (Ecotrin) 81 mg PO DAILY@0800 [facility] Last Admin: 03/18/18 12:24 Dose: 81 mg Atorvastatin Calcium (Lipitor) 40 mg PO QHS [facility] Last Admin: 03/17/18 21:07 Dose: 40 mg Bisacodyl (Dulcolax) 10 mg RECTAL .PRN X 1 PRN PRN Reason: Constipation Hydrocortisone (Hytone) 1 applic TOPICAL 0600,2099 [facility]; Protocol Last Admin: 03/18/18 06:10 Dose: 1 applicatio Lisinopril (Zestril) 20 mg PO DAILY [facility] Last Admin: 03/18/18 12:24 Dose: 20 mg Magnesium Hydroxide (Milk Of Magnesia) 30 ml PO .PRN X 1 PRN PRN Reason: Constipation Melatonin (Melatonin) 5 mg PO 1999 [facility] Last Admin: 03/17/18 21:06 Dose: 5 mg Metoprolol Tartrate (Lopressor (Beta Valeria)) 50 mg PO BID [facility] Last Admin: 03/18/18 12:24 Dose: 50 mg Nicotine (Nicoderm Cq (Pbkc)) 14 mg TRANSDERM. DAILY [facility] Last Admin: 03/18/18 12:25 Dose: 14 mg Nystatin (Nystatin) 500,000 unit PO 4X/DAY [facility] Last Admin: 03/18/18 12:25 Dose: 500,000 unit Senna/Docusate Sodium (Senokot-S, Marcia-Colace) 2 tablet PO BID [facility] Last Admin: 03/18/18 12:25 Dose: 2 tablet Warfarin Sodium (Coumadin (Pbkc)) 5 mg PO DAILY@1700 [facility] Medical Necessity - Tobacco Use Smoking Status: Current some day smoker Tobacco Use: Cigarettes Assessment/Plan All Active Problems (Last Reviewed 03/02/18 @ 15:28 by Timothy Hernandez MD) CVA (cerebral vascular accident) (Acute) Debility S/P right MCA distribution infarct. Complicated by new onset atrial fibrillation. Goal of rehab is taoist of prior level of functional independence Plan: - Therapy for gait and balance - Occupational Therapy for ADLs - Speech therapy - Diet => Pur?ed with honey thickened liquids - Insomnia => Melatonin 3mg, and Elavil an hour prior to bedtime, d/c Ativan - Bowel protocol - DVT prophylaxis => SCDs, Juancarlos hoses, Lovenox start on Coumadin 5 mg - New onset A-Fib = > INR is 1.5 - obtain Daily INRs, continue Lovenox, increase Coumadin 7mg once INR is 2 - 3 d/c Lovenox. - PRN analgesics - Moist cough, with diminished breath sounds in the bases, with scattered Rhonchi through out => Obtain CXR => chest x-ray negative for any acute processes. - [employer] water protocol, repeat Swallow Evaluation in two to three weeks.
[2018-03-18 09:05] VITALS: BP 128/58; PULSE 68; RESP 18; TEMP 36.7; O2SAT 93
--- NOTE | 2018-03-18 12:15 | CASEMGMT ---
Insurance Clinical information sent. Pending continued stay approval at this time. Auth#[id number] Petra COOK, PSYCHOLOGIST ENGINEERING
[2018-03-18 12:24] VITALS: BP 128/58; PULSE 68
[2018-03-18] MEDS: Aspirin E.C. 81 MG Tablet PO (12:24)
[2018-03-18] MEDS: Metoprolol Tartrate 50 MG Tablet PO ×2 (12:24→20:55)
[2018-03-18] MEDS: Lisinopril 20 MG Tablet PO (12:24)
[2018-03-18] MEDS: NYSTATIN 500,000 UNIT/5 ML UDC 500000 UNIT PO ×4 (12:25→20:55)
[2018-03-18] MEDS: Senna/Docusate Sodium 1 Tablet 2 TABLET PO ×2 (12:25→20:54)
[2018-03-18] MEDS: amLODIPine 5 MG Tablet PO (12:25)
[2018-03-18 15:23] VITALS: BMI 29.5
--- NOTE | 2018-03-18 17:20 | PCM.PN.HOSP ---
Subjective: Seen and examined. Patient has mild left-sided weakness. Vitals/I&O's: Vital Signs Temp Pulse Resp BP Pulse Ox 98.1 F 68 18 128/58 H 93 03/18/18 09:05 03/18/18 12:24 03/18/18 09:05 03/18/18 12:24 03/18/18 09:05 Oxygen Delivery Method Room Air Weight: 185 lb 13.595 oz Body Mass Index (BMI) 29.5 Finger Stick Blood Glucose 114 Intake and Output for Last 24 Hours 03/16/18 03/17/18 03/18/18 23:59 23:59 23:59 Intake Total 360 / 360 480 / 480 Balance 360 / 360 480 / 480 General: Alert, Oriented x3, Cooperative HEENT: Atraumatic, PERRLA, EOMI, Normocephalic Neck: Supple, No JVD, Negative Carotid Bruits Lungs: Clear to auscultation, Normal air movement Cardiovascular: Regular rate, Regular Rhythm, Normal S1, Normal S2, No murmurs Abdomen: Bowel Sounds Present, Soft, Non Tender Extremities: No edema, Capillary Refill Less than 3 Seconds Skin: No rashes, No breakdown Musculoskeletal: No Tenderness to Palpation of Joints or Extremities, Arthritic Changes Neurological: Cranial nerves II-XII grossly intact, - - Mild left-sided weakness. Dysarthria with slurring has improved. 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 Psych/Mental Status: Normal Affect, Appropriate Laboratory Results 03/18/18 05:05: PT 31.1 H, INR 3.0 Current Medications Acetaminophen (Tylenol) 650 mg PO Q4H PRN PRN PRN Reason: Mild Pain (0-3/10)/Headache Last Admin: 03/07/18 05:21 Dose: 650 mg Albuterol Sulfate (Ventolin Aerosols) 2.5 mg INHALATION Q6H PRN PRN Reason: sob/wheezes Amitriptyline HCl (Elavil) 25 mg PO QHS [facility] Last Admin: 03/17/18 21:06 Dose: 25 mg Amlodipine Besylate (Norvasc) 5 mg PO DAILY [facility] Last Admin: 03/18/18 12:25 Dose: 5 mg Aspirin (Ecotrin) 81 mg PO DAILY@0800 [facility] Last Admin: 03/18/18 12:24 Dose: 81 mg Atorvastatin Calcium (Lipitor) 40 mg PO QHS [facility] Last Admin: 03/17/18 21:07 Dose: 40 mg Bisacodyl (Dulcolax) 10 mg RECTAL .PRN X 1 PRN PRN Reason: Constipation Hydrocortisone (Hytone) 1 applic TOPICAL 06,2099 [facility]; Protocol Last Admin: 03/18/18 06:10 Dose: 1 applicatio Lisinopril (Zestril) 20 mg PO DAILY [facility] Last Admin: 03/18/18 12:24 Dose: 20 mg Magnesium Hydroxide (Milk Of Magnesia) 30 ml PO .PRN X 1 PRN PRN Reason: Constipation Melatonin (Melatonin) 5 mg PO 1999 [facility] Last Admin: 03/17/18 21:06 Dose: 5 mg Metoprolol Tartrate (Lopressor (Beta Valeria)) 50 mg PO BID [facility] Last Admin: 03/18/18 12:24 Dose: 50 mg Nicotine (Nicoderm Cq (Pbkc)) 14 mg TRANSDERM. DAILY [facility] Last Admin: 03/18/18 12:25 Dose: 14 mg Nystatin (Nystatin) 500,000 unit PO 4X/DAY [facility] Last Admin: 03/18/18 13:52 Dose: 500,000 unit Senna/Docusate Sodium (Senokot-S, Marcia-Colace) 2 tablet PO BID [facility] Last Admin: 03/18/18 12:25 Dose: 2 tablet Warfarin Sodium (Coumadin (Pbkc)) 5 mg PO DAILY@1700 [facility] Medical Necessity - Tobacco Use Smoking Status: Current some day smoker Tobacco Use: Cigarettes Assessment/Plan All Active Problems (Last Reviewed 03/02/18 @ 15:28 by Timothy Hernandez MD) CVA (cerebral vascular accident) (Acute) This is a 82-year-old gentleman with a history of hypertension, dyslipidemia and nicotine use was admitted to rehab unit after he had right MCA ischemic infarct. Patient had sudden left-sided hemiplegia and was found out of time window for TPA and neuro intervention. This was discussed with [facility] neuro interventionalist. Thereafter, conservative management was planned. 1. 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 fib. On atorvastatin 40 mg daily. On dysphagia diet puree with honey thick. 2. New onset atrial fibrillation: Continue home dose of metoprolol and Norvasc. On lisinopril 20 mg daily. INR is 3.0. Skipped the dose of Coumadin today and restart at 5 mg daily. 3. Hypertension and dyslipidemia: BP is controlled. 4. Chronic nicotine use: On nicotine patch. Smoking cessation advised. Laboratory Results 03/18/18 05:05: PT 31.1 H, INR 3.0 Active Medications Acetaminophen (Tylenol) 650 mg PO Q4H PRN PRN PRN Reason: Mild Pain (0-3/10)/Headache Last Admin: 03/07/18 05:21 Dose: 650 mg Albuterol Sulfate (Ventolin Aerosols) 2.5 mg INHALATION Q6H PRN PRN Reason: sob/wheezes Amitriptyline HCl (Elavil) 25 mg PO QHS [facility] Last Admin: 03/17/18 21:06 Dose: 25 mg Amlodipine Besylate (Norvasc) 5 mg PO DAILY [facility] Last Admin: 03/18/18 12:25 Dose: 5 mg Aspirin (Ecotrin) 81 mg PO DAILY@0800 [facility] Last Admin: 03/18/18 12:24 Dose: 81 mg Atorvastatin Calcium (Lipitor) 40 mg PO QHS [facility] Last Admin: 03/17/18 21:07 Dose: 40 mg Bisacodyl (Dulcolax) 10 mg RECTAL .PRN X 1 PRN PRN Reason: Constipation Hydrocortisone (Hytone) 1 applic TOPICAL 0600,2099 [facility]; Protocol Last Admin: 03/18/18 06:10 Dose: 1 applicatio Lisinopril (Zestril) 20 mg PO DAILY [facility] Last Admin: 03/18/18 12:24 Dose: 20 mg Magnesium Hydroxide (Milk Of Magnesia) 30 ml PO .PRN X 1 PRN PRN Reason: Constipation Melatonin (Melatonin) 5 mg PO 1999 [facility] Last Admin: 03/17/18 21:06 Dose: 5 mg Metoprolol Tartrate (Lopressor (Beta Valeria)) 50 mg PO BID [facility] Last Admin: 03/18/18 12:24 Dose: 50 mg Nicotine (Nicoderm Cq (Pbkc)) 14 mg TRANSDERM. DAILY [facility] Last Admin: 03/18/18 12:25 Dose: 14 mg Nystatin (Nystatin) 500,000 unit PO 4X/DAY [facility] Last Admin: 03/18/18 13:52 Dose: 500,000 unit Senna/Docusate Sodium (Senokot-S, Marcia-Colace) 2 tablet PO BID [facility] Last Admin: 03/18/18 12:25 Dose: 2 tablet Warfarin Sodium (Coumadin (Pbkc)) 5 mg PO DAILY@1700 [facility] Code Visit Inpatient E&M: 47959 Subs Hosp L2
--- NOTE | 2018-03-18 17:24 | PN_ITS ---
Subjective: Seen and examined. Patient has mild left-sided weakness. Vitals/I&O's: Vital Signs Temp Pulse Resp BP Pulse Ox 98.1 F 68 18 128/58 H 93 03/18/18 09:05 03/18/18 12:24 03/18/18 09:05 03/18/18 12:24 03/18/18 09:05 Oxygen Delivery Method Room Air Weight: 185 lb 13.595 oz Body Mass Index (BMI) 29.5 Finger Stick Blood Glucose 114 Intake and Output for Last 24 Hours 03/16/18 03/17/18 03/18/18 23:59 23:59 23:59 Intake Total 360 / 360 480 / 480 Balance 360 / 360 480 / 480 General: Alert, Oriented x3, Cooperative HEENT: Atraumatic, PERRLA, EOMI, Normocephalic Neck: Supple, No JVD, Negative Carotid Bruits Lungs: Clear to auscultation, Normal air movement Cardiovascular: Regular rate, Regular Rhythm, Normal S1, Normal S2, No murmurs Abdomen: Bowel Sounds Present, Soft, Non Tender Extremities: No edema, Capillary Refill Less than 3 Seconds Skin: No rashes, No breakdown Musculoskeletal: No Tenderness to Palpation of Joints or Extremities, Arthritic Changes Neurological: Cranial nerves II-XII grossly intact, - - Mild left-sided weakness. Dysarthria with slurring has improved. 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 Psych/Mental Status: Normal Affect, Appropriate Laboratory Results 03/18/18 05:05: PT 31.1 H, INR 3.0 Current Medications Acetaminophen (Tylenol) 650 mg PO Q4H PRN PRN PRN Reason: Mild Pain (0-3/10)/Headache Last Admin: 03/07/18 05:21 Dose: 650 mg Albuterol Sulfate (Ventolin Aerosols) 2.5 mg INHALATION Q6H PRN PRN Reason: sob/wheezes Amitriptyline HCl (Elavil) 25 mg PO QHS [facility] Last Admin: 03/17/18 21:06 Dose: 25 mg Amlodipine Besylate (Norvasc) 5 mg PO DAILY [facility] Last Admin: 03/18/18 12:25 Dose: 5 mg Aspirin (Ecotrin) 81 mg PO DAILY@0800 [facility] Last Admin: 03/18/18 12:24 Dose: 81 mg Atorvastatin Calcium (Lipitor) 40 mg PO QHS [facility] Last Admin: 03/17/18 21:07 Dose: 40 mg Bisacodyl (Dulcolax) 10 mg RECTAL .PRN X 1 PRN PRN Reason: Constipation Hydrocortisone (Hytone) 1 applic TOPICAL 06,2099 [facility]; Protocol Last Admin: 03/18/18 06:10 Dose: 1 applicatio Lisinopril (Zestril) 20 mg PO DAILY [facility] Last Admin: 03/18/18 12:24 Dose: 20 mg Magnesium Hydroxide (Milk Of Magnesia) 30 ml PO .PRN X 1 PRN PRN Reason: Constipation Melatonin (Melatonin) 5 mg PO 1999 [facility] Last Admin: 03/17/18 21:06 Dose: 5 mg Metoprolol Tartrate (Lopressor (Beta Valeria)) 50 mg PO BID [facility] Last Admin: 03/18/18 12:24 Dose: 50 mg Nicotine (Nicoderm Cq (Pbkc)) 14 mg TRANSDERM. DAILY [facility] Last Admin: 03/18/18 12:25 Dose: 14 mg Nystatin (Nystatin) 500,000 unit PO 4X/DAY [facility] Last Admin: 03/18/18 13:52 Dose: 500,000 unit Senna/Docusate Sodium (Senokot-S, Marcia-Colace) 2 tablet PO BID [facility] Last Admin: 03/18/18 12:25 Dose: 2 tablet Warfarin Sodium (Coumadin (Pbkc)) 5 mg PO DAILY@1700 [facility] Medical Necessity - Tobacco Use Smoking Status: Current some day smoker Tobacco Use: Cigarettes Assessment/Plan All Active Problems (Last Reviewed 03/02/18 @ 15:28 by Timothy Hernandez MD) CVA (cerebral vascular accident) (Acute) This is a 82-year-old gentleman with a history of hypertension, dyslipidemia and nicotine use was admitted to rehab unit after he had right MCA ischemic infarct. Patient had sudden left-sided hemiplegia and was found out of time window for TPA and neuro intervention. This was discussed with [facility] neuro interventionalist. Thereafter, conservative management was planned. 1. 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 fib. On atorvastatin 40 mg daily. On dysphagia diet puree with honey thick. 2. New onset atrial fibrillation: Continue home dose of metoprolol and Norvasc. On lisinopril 20 mg daily. INR is 3.0. Skipped the dose of Coumadin today and restart at 5 mg daily. 3. Hypertension and dyslipidemia: BP is controlled. 4. Chronic nicotine use: On nicotine patch. Smoking cessation advised. Laboratory Results 03/18/18 05:05: PT 31.1 H, INR 3.0 Active Medications Acetaminophen (Tylenol) 650 mg PO Q4H PRN PRN PRN Reason: Mild Pain (0-3/10)/Headache Last Admin: 03/07/18 05:21 Dose: 650 mg Albuterol Sulfate (Ventolin Aerosols) 2.5 mg INHALATION Q6H PRN PRN Reason: sob/wheezes Amitriptyline HCl (Elavil) 25 mg PO QHS [facility] Last Admin: 03/17/18 21:06 Dose: 25 mg Amlodipine Besylate (Norvasc) 5 mg PO DAILY [facility] Last Admin: 03/18/18 12:25 Dose: 5 mg Aspirin (Ecotrin) 81 mg PO DAILY@0800 [facility] Last Admin: 03/18/18 12:24 Dose: 81 mg Atorvastatin Calcium (Lipitor) 40 mg PO QHS [facility] Last Admin: 03/17/18 21:07 Dose: 40 mg Bisacodyl (Dulcolax) 10 mg RECTAL .PRN X 1 PRN PRN Reason: Constipation Hydrocortisone (Hytone) 1 applic TOPICAL 0600,2099 [facility]; Protocol Last Admin: 03/18/18 06:10 Dose: 1 applicatio Lisinopril (Zestril) 20 mg PO DAILY [facility] Last Admin: 03/18/18 12:24 Dose: 20 mg Magnesium Hydroxide (Milk Of Magnesia) 30 ml PO .PRN X 1 PRN PRN Reason: Constipation Melatonin (Melatonin) 5 mg PO 1999 [facility] Last Admin: 03/17/18 21:06 Dose: 5 mg Metoprolol Tartrate (Lopressor (Beta Valeria)) 50 mg PO BID [facility] Last Admin: 03/18/18 12:24 Dose: 50 mg Nicotine (Nicoderm Cq (Pbkc)) 14 mg TRANSDERM. DAILY [facility] Last Admin: 03/18/18 12:25 Dose: 14 mg Nystatin (Nystatin) 500,000 unit PO 4X/DAY [facility] Last Admin: 03/18/18 13:52 Dose: 500,000 unit Senna/Docusate Sodium (Senokot-S, Marcia-Colace) 2 tablet PO BID [facility] Last Admin: 03/18/18 12:25 Dose: 2 tablet Warfarin Sodium (Coumadin (Pbkc)) 5 mg PO DAILY@1700 [facility] Code Visit Inpatient E&M: 16342 Subs Hosp L2
[2018-03-18] MEDS: MELATONIN 10 MG TABLET 5 MG PO (20:54)
[2018-03-18] MEDS: Atorvastatin Calcium 20 MG Tablet 40 MG PO (20:54)
[2018-03-18] MEDS: Amitriptyline 25 MG Tablet PO (20:54)
[2018-03-18 20:55] VITALS: BP 130/67; PULSE 77
[2018-03-18 21:00] VITALS: BP 130/67; PULSE 77; RESP 16; TEMP 36.7; O2SAT 94; O2SAT 95; BMI 29.5
--- NOTE | 2018-03-19 03:27 | NURSING ---
Reviewed and agree with OVERNIGHT ASSOCIATE documentation and FIMs charting.
[2018-03-19] MEDS: Hydrocortisone 2.5% Crm 1 APPLIC TOPICAL ×2 (05:58→21:15)
[2018-03-19 06:35] LABS: International Normalized Ratio 2.4; Prothrombin Time (Protime)PT. 25.9 SECONDS (11.7-14.9)
[2018-03-19 08:25] VITALS: BP 127/68; PULSE 65; RESP 18; TEMP 36.6; O2SAT 93
--- NOTE | 2018-03-19 09:18 | CASEMGMT ---
Insurance Continued stay denied with last cover day begin 03/21/18. Patient to discharge or financial responsibility to begin on 03/22/18. Auth#[id number] Petra COOK, COTTAGE ATTENDANT
--- NOTE | 2018-03-19 09:30 | CASEMGMT ---
Social Work Spoke with patient and patient family. This social media analyst communicating to patient and patient family that continued stay has been denied by insurance with a last cover day of 03/21/18 and patient to discharge or financial responsibility to begin on 03/22/18. Patient choosing to discharge on 03/22/18 with attempt to discharge to the Transitional Care Unit pending insurance approval. If insurance denies skilled stay then patient plans to discharge to home with daughter and son-in-law. Support given. Telephone call to REENA Villanueva, this social media analyst making referral Kay voicing that patient is approved pending insurance approval. Proposed discharge date: 03/22/18 PLAN: Discharge to Transitional Care Unit pending approval. Petra COOK, ASSISTANT CONSTRUCTION SUPERINTENDENT
[2018-03-19 10:46] VITALS: BP 127/68; PULSE 65
[2018-03-19] MEDS: amLODIPine 5 MG Tablet PO (10:46)
[2018-03-19] MEDS: Metoprolol Tartrate 50 MG Tablet PO ×2 (10:46→21:14)
[2018-03-19] MEDS: Senna/Docusate Sodium 1 Tablet 2 TABLET PO ×2 (10:46→21:13)
[2018-03-19] MEDS: Lisinopril 20 MG Tablet PO (10:46)
[2018-03-19] MEDS: Aspirin E.C. 81 MG Tablet PO (10:46)
[2018-03-19] MEDS: NYSTATIN 500,000 UNIT/5 ML UDC 500000 UNIT PO ×4 (10:47→21:14)
--- NOTE | 2018-03-19 14:59 | PCM.PN.NEU ---
Subjective: Patient seen and examined. No new complaints. Tolerating therapy, has increased movement in his left arm, hand and fingers. Denies any blurry vision, double vision, or headaches. No issues with GI/. - Physical Exam General: Alert, Oriented x3, Cooperative HEENT: Atraumatic, PERRLA, EOMI, Normocephalic Neck: Supple, No JVD, Negative Carotid Bruits Lungs: Clear to auscultation, Normal air movement Cardiovascular: Regular rate, No murmurs Abdomen: Bowel Sounds Present, Soft, Non Tender Extremities: No edema, Capillary Refill Less than 3 Seconds Skin: No rashes, No breakdown Musculoskeletal: No Tenderness to Palpation of Joints or Extremities Neurological: Cranial nerves II-XII grossly intact Psych/Mental Status: Normal Affect, Appropriate, Alert and oriented to time, place, person, mood and affect Vital Signs Temp Pulse Resp BP Pulse Ox 97.9 F 65 18 127/68 H 93 03/19/18 08:25 03/19/18 10:46 03/19/18 08:25 03/19/18 10:46 03/19/18 08:25 Oxygen Delivery Method Room Air Weight: 84.3 kg Body Mass Index (BMI) 29.5 Finger Stick Blood Glucose 114 Intake and Output for Last 24 Hours 03/17/18 03/18/18 03/19/18 23:59 23:59 23:59 Intake Total 480 / 480 480 / 480 Balance 480 / 480 480 / 480 Laboratory Tests Past 24 Hrs 03/19/18 06:10 PT 25.9 H INR 2.4 Active Medications Acetaminophen (Tylenol) 650 mg PO Q4H PRN PRN PRN Reason: Mild Pain (0-3/10)/Headache Last Admin: 03/07/18 05:21 Dose: 650 mg Albuterol Sulfate (Ventolin Aerosols) 2.5 mg INHALATION Q6H PRN PRN Reason: sob/wheezes Amitriptyline HCl (Elavil) 25 mg PO QHS [facility] Last Admin: 03/18/18 20:54 Dose: 25 mg Amlodipine Besylate (Norvasc) 5 mg PO DAILY [facility] Last Admin: 03/19/18 10:46 Dose: 5 mg Aspirin (Ecotrin) 81 mg PO DAILY@0800 [facility] Last Admin: 03/19/18 10:46 Dose: 81 mg Atorvastatin Calcium (Lipitor) 40 mg PO QHS [facility] Last Admin: 03/18/18 20:54 Dose: 40 mg Bisacodyl (Dulcolax) 10 mg RECTAL .PRN X 1 PRN PRN Reason: Constipation Hydrocortisone (Hytone) 1 applic TOPICAL 0600,2099 [facility]; Protocol Last Admin: 03/19/18 05:58 Dose: 1 applicatio Lisinopril (Zestril) 20 mg PO DAILY [facility] Last Admin: 03/19/18 10:46 Dose: 20 mg Magnesium Hydroxide (Milk Of Magnesia) 30 ml PO .PRN X 1 PRN PRN Reason: Constipation Melatonin (Melatonin) 5 mg PO 1999 [facility] Last Admin: 03/18/18 20:54 Dose: 5 mg Metoprolol Tartrate (Lopressor (Beta Valeria)) 50 mg PO BID [facility] Last Admin: 03/19/18 10:46 Dose: 50 mg Nicotine (Nicoderm Cq (Pbkc)) 14 mg TRANSDERM. DAILY [facility] Last Admin: 03/19/18 10:45 Dose: 14 mg Nystatin (Nystatin) 500,000 unit PO 4X/DAY [facility] Last Admin: 03/19/18 14:51 Dose: 500,000 unit Senna/Docusate Sodium (Senokot-S, Marcia-Colace) 2 tablet PO BID [facility] Last Admin: 03/19/18 10:46 Dose: 2 tablet Warfarin Sodium (Coumadin (Pbkc)) 5 mg PO DAILY@1700 [facility] Medical Necessity - Tobacco Use Smoking Status: Current some day smoker Tobacco Use: Cigarettes Assessment/Plan All Active Problems (Last Reviewed 03/02/18 @ 15:28 by Timothy Hernandez MD) CVA (cerebral vascular accident) (Acute) Debility S/P right MCA distribution infarct. Complicated by new onset atrial fibrillation. Goal of rehab is jain of prior level of functional independence Plan: - Therapy for gait and balance - Occupational Therapy for ADLs - Speech therapy - Diet => Pur?ed with honey thickened liquids - Insomnia => Melatonin 3mg, and Elavil an hour prior to bedtime, d/c Ativan - Bowel protocol - DVT prophylaxis => SCDs, Juancarlos hoses, Lovenox start on Coumadin 5 mg - New onset A-Fib = > INR is 1.5 - obtain Daily INRs, continue Lovenox, increase Coumadin 7mg once INR is 2 - 3 d/c Lovenox. - PRN analgesics - Moist cough, with diminished breath sounds in the bases, with scattered Rhonchi through out => Obtain CXR => chest x-ray negative for any acute processes. - [place] Chatman water protocol, repeat Swallow Evaluation in two to three weeks.
--- NOTE | 2018-03-19 15:02 | PN.NEURO_ITS ---
Subjective: Patient seen and examined. No new complaints. Tolerating therapy, has increased movement in his left arm, hand and fingers. Denies any blurry vision, double vision, or headaches. No issues with GI/. - Physical Exam General: Alert, Oriented x3, Cooperative HEENT: Atraumatic, PERRLA, EOMI, Normocephalic Neck: Supple, No JVD, Negative Carotid Bruits Lungs: Clear to auscultation, Normal air movement Cardiovascular: Regular rate, No murmurs Abdomen: Bowel Sounds Present, Soft, Non Tender Extremities: No edema, Capillary Refill Less than 3 Seconds Skin: No rashes, No breakdown Musculoskeletal: No Tenderness to Palpation of Joints or Extremities Neurological: Cranial nerves II-XII grossly intact Psych/Mental Status: Normal Affect, Appropriate, Alert and oriented to time, place, person, mood and affect Vital Signs Temp Pulse Resp BP Pulse Ox 97.9 F 65 18 127/68 H 93 03/19/18 08:25 03/19/18 10:46 03/19/18 08:25 03/19/18 10:46 03/19/18 08:25 Oxygen Delivery Method Room Air Weight: 84.3 kg Body Mass Index (BMI) 29.5 Finger Stick Blood Glucose 114 Intake and Output for Last 24 Hours 03/17/18 03/18/18 03/19/18 23:59 23:59 23:59 Intake Total 480 / 480 480 / 480 Balance 480 / 480 480 / 480 Laboratory Tests Past 24 Hrs 03/19/18 06:10 PT 25.9 H INR 2.4 Active Medications Acetaminophen (Tylenol) 650 mg PO Q4H PRN PRN PRN Reason: Mild Pain (0-3/10)/Headache Last Admin: 03/07/18 05:21 Dose: 650 mg Albuterol Sulfate (Ventolin Aerosols) 2.5 mg INHALATION Q6H PRN PRN Reason: sob/wheezes Amitriptyline HCl (Elavil) 25 mg PO QHS [facility] Last Admin: 03/18/18 20:54 Dose: 25 mg Amlodipine Besylate (Norvasc) 5 mg PO DAILY [facility] Last Admin: 03/19/18 10:46 Dose: 5 mg Aspirin (Ecotrin) 81 mg PO DAILY@0800 [facility] Last Admin: 03/19/18 10:46 Dose: 81 mg Atorvastatin Calcium (Lipitor) 40 mg PO QHS [facility] Last Admin: 03/18/18 20:54 Dose: 40 mg Bisacodyl (Dulcolax) 10 mg RECTAL .PRN X 1 PRN PRN Reason: Constipation Hydrocortisone (Hytone) 1 applic TOPICAL 0600,2099 [facility]; Protocol Last Admin: 03/19/18 05:58 Dose: 1 applicatio Lisinopril (Zestril) 20 mg PO DAILY [facility] Last Admin: 03/19/18 10:46 Dose: 20 mg Magnesium Hydroxide (Milk Of Magnesia) 30 ml PO .PRN X 1 PRN PRN Reason: Constipation Melatonin (Melatonin) 5 mg PO 1999 [facility] Last Admin: 03/18/18 20:54 Dose: 5 mg Metoprolol Tartrate (Lopressor (Beta Valeria)) 50 mg PO BID [facility] Last Admin: 03/19/18 10:46 Dose: 50 mg Nicotine (Nicoderm Cq (Pbkc)) 14 mg TRANSDERM. DAILY [facility] Last Admin: 03/19/18 10:45 Dose: 14 mg Nystatin (Nystatin) 500,000 unit PO 4X/DAY [facility] Last Admin: 03/19/18 14:51 Dose: 500,000 unit Senna/Docusate Sodium (Senokot-S, Marcia-Colace) 2 tablet PO BID [facility] Last Admin: 03/19/18 10:46 Dose: 2 tablet Warfarin Sodium (Coumadin (Pbkc)) 5 mg PO DAILY@1700 [facility] Medical Necessity - Tobacco Use Smoking Status: Current some day smoker Tobacco Use: Cigarettes Assessment/Plan All Active Problems (Last Reviewed 03/02/18 @ 15:28 by Timothy Hernandez MD) CVA (cerebral vascular accident) (Acute) Debility S/P right MCA distribution infarct. Complicated by new onset atrial fibrillation. Goal of rehab is protestant of prior level of functional independence Plan: - Therapy for gait and balance - Occupational Therapy for ADLs - Speech therapy - Diet => Pur?ed with honey thickened liquids - Insomnia => Melatonin 3mg, and Elavil an hour prior to bedtime, d/c Ativan - Bowel protocol - DVT prophylaxis => SCDs, Juancarlos hoses, Lovenox start on Coumadin 5 mg - New onset A-Fib = > INR is 1.5 - obtain Daily INRs, continue Lovenox, increase Coumadin 7mg once INR is 2 - 3 d/c Lovenox. - PRN analgesics - Moist cough, with diminished breath sounds in the bases, with scattered Rhonchi through out => Obtain CXR => chest x-ray negative for any acute processes. - [place] Chatman water protocol, repeat Swallow Evaluation in two to three weeks.
[2018-03-19 17:00] VITALS: BMI 29.5
[2018-03-19 19:11] VITALS: BP 131/80; PULSE 68; RESP 18; TEMP 36.8; O2SAT 96
[2018-03-19 21:00] VITALS: PULSE 68; RESP 18; O2SAT 96; BMI 29.5
[2018-03-19] MEDS: MELATONIN 10 MG TABLET 5 MG PO (21:13)
[2018-03-19] MEDS: Atorvastatin Calcium 20 MG Tablet 40 MG PO (21:13)
[2018-03-19 21:14] VITALS: BP 131/80; PULSE 68
[2018-03-19] MEDS: Amitriptyline 25 MG Tablet PO (21:14)
--- NOTE | 2018-03-20 02:39 | NURSING ---
Reviewed and agree with THERAPY TECHNICIAN documentation and FIMs charting.
[2018-03-20 05:24] LABS: International Normalized Ratio 2.1; Prothrombin Time (Protime)PT. 23.3 SECONDS (11.7-14.9)
[2018-03-20 07:50] VITALS: PULSE 63
[2018-03-20] MEDS: Metoprolol Tartrate 50 MG Tablet PO ×2 (07:50→21:34)
[2018-03-20] MEDS: amLODIPine 5 MG Tablet PO (07:50)
[2018-03-20] MEDS: Senna/Docusate Sodium 1 Tablet 2 TABLET PO ×2 (07:50→21:35)
[2018-03-20] MEDS: Aspirin E.C. 81 MG Tablet PO (07:50)
[2018-03-20] MEDS: Lisinopril 20 MG Tablet PO (07:50)
[2018-03-20 08:00] VITALS: BP 133/68; PULSE 63; RESP 18; TEMP 36.5; O2SAT 93
--- NOTE | 2018-03-20 08:49 | PCM.PN.NEU ---
Subjective: Patient seen and examined. No new complaints over night. Tolerating therapy. Denies blurry vision, double vision or headaches. Starting to use his left hand and arm more to push himself up to a standing position, he is also able to grab items from his bed side table. No issues with GI/. He will be discharged on Thursday 03/22 to either home or a SNF. Will request the family come in for shared care to help them make an informed decision. - Physical Exam General: Alert, Oriented x3, Cooperative HEENT: Atraumatic, PERRLA, EOMI, Normocephalic Neck: Supple, No JVD, Negative Carotid Bruits Lungs: Clear to auscultation, Normal air movement Cardiovascular: Regular rate, No murmurs Abdomen: Bowel Sounds Present, Soft, Non Tender Extremities: No edema, Capillary Refill Less than 3 Seconds Skin: No rashes, No breakdown Musculoskeletal: No Tenderness to Palpation of Joints or Extremities Neurological: Cranial nerves II-XII grossly intact Psych/Mental Status: Normal Affect, Appropriate, Alert and oriented to time, place, person, mood and affect Vital Signs Temp Pulse Resp BP Pulse Ox 98.2 F 63 18 131/80 H 96 03/19/18 19:11 03/20/18 07:50 03/19/18 21:00 03/19/18 21:14 03/19/18 21:00 Oxygen Delivery Method Room Air Weight: 82 kg Body Mass Index (BMI) 29.5 Finger Stick Blood Glucose 114 Intake and Output for Last 24 Hours 03/18/18 03/19/18 03/20/18 23:59 23:59 23:59 Intake Total 480 / 480 480 / 480 Balance 480 / 480 480 / 480 Laboratory Tests Past 24 Hrs 03/20/18 05:00 PT 23.3 H INR 2.1 Active Medications Acetaminophen (Tylenol) 650 mg PO Q4H PRN PRN PRN Reason: Mild Pain (0-3/10)/Headache Last Admin: 03/07/18 05:21 Dose: 650 mg Albuterol Sulfate (Ventolin Aerosols) 2.5 mg INHALATION Q6H PRN PRN Reason: sob/wheezes Amitriptyline HCl (Elavil) 25 mg PO QHS [facility] Last Admin: 03/19/18 21:14 Dose: 25 mg Amlodipine Besylate (Norvasc) 5 mg PO DAILY [facility] Last Admin: 03/20/18 07:50 Dose: 5 mg Aspirin (Ecotrin) 81 mg PO DAILY@0800 [facility] Last Admin: 03/20/18 07:50 Dose: 81 mg Atorvastatin Calcium (Lipitor) 40 mg PO QHS [facility] Last Admin: 03/19/18 21:13 Dose: 40 mg Bisacodyl (Dulcolax) 10 mg RECTAL .PRN X 1 PRN PRN Reason: Constipation Hydrocortisone (Hytone) 1 applic TOPICAL 599,2099 [facility]; Protocol Last Admin: 03/20/18 06:13 Dose: Not Given Lisinopril (Zestril) 20 mg PO DAILY [facility] Last Admin: 03/20/18 07:50 Dose: 20 mg Magnesium Hydroxide (Milk Of Magnesia) 30 ml PO .PRN X 1 PRN PRN Reason: Constipation Melatonin (Melatonin) 5 mg PO 1999 [facility] Last Admin: 03/19/18 21:13 Dose: 5 mg Metoprolol Tartrate (Lopressor (Beta Valeria)) 50 mg PO BID [facility] Last Admin: 03/20/18 07:50 Dose: 50 mg Nicotine (Nicoderm Cq (Pbkc)) 14 mg TRANSDERM. DAILY [facility] Last Admin: 03/19/18 10:45 Dose: 14 mg Nystatin (Nystatin) 500,000 unit PO 4X/DAY [facility] Last Admin: 03/19/18 21:14 Dose: 500,000 unit Senna/Docusate Sodium (Senokot-S, Marcia-Colace) 2 tablet PO BID [facility] Last Admin: 03/20/18 07:50 Dose: 2 tablet Warfarin Sodium (Coumadin (Pbkc)) 5 mg PO DAILY@1700 [facility] Last Admin: 03/19/18 18:12 Dose: 5 mg Medical Necessity - Tobacco Use Smoking Status: Current some day smoker Tobacco Use: Cigarettes Assessment/Plan All Active Problems (Last Reviewed 03/02/18 @ 15:28 by Timothy Hernandez MD) CVA (cerebral vascular accident) (Acute) Debility S/P right MCA distribution infarct. Complicated by new onset atrial fibrillation. Goal of rehab is mosque of prior level of functional independence Plan: - Therapy for gait and balance - Occupational Therapy for ADLs - Speech therapy - Diet => Pur?ed with honey thickened liquids - Insomnia => Melatonin 3mg, and Elavil an hour prior to bedtime, d/c Ativan - Bowel protocol - DVT prophylaxis => SCDs, Juancarlos hoses, Lovenox start on Coumadin 5 mg - New onset A-Fib = > INR is 1.5 - obtain Daily INRs, continue Lovenox, increase Coumadin 7mg once INR is 2 - 3 d/c Lovenox. - PRN analgesics - Moist cough, with diminished breath sounds in the bases, with scattered Rhonchi through out => Obtain CXR => chest x-ray negative for any acute processes. - [place] Chatman water protocol, repeat Swallow Evaluation in two to three weeks. - Discharge is planned for Thursday 03/22 to either home or SNF - Recommend family participate in Share care prior to discharge
--- NOTE | 2018-03-20 08:56 | PN.NEURO_ITS ---
Subjective: Patient seen and examined. No new complaints over night. Tolerating therapy. Denies blurry vision, double vision or headaches. Starting to use his left hand and arm more to push himself up to a standing position, he is also able to grab items from his bed side table. No issues with GI/. He will be discharged on Thursday 03/22 to either home or a SNF. Will request the family come in for shared care to help them make an informed decision. - Physical Exam General: Alert, Oriented x3, Cooperative HEENT: Atraumatic, PERRLA, EOMI, Normocephalic Neck: Supple, No JVD, Negative Carotid Bruits Lungs: Clear to auscultation, Normal air movement Cardiovascular: Regular rate, No murmurs Abdomen: Bowel Sounds Present, Soft, Non Tender Extremities: No edema, Capillary Refill Less than 3 Seconds Skin: No rashes, No breakdown Musculoskeletal: No Tenderness to Palpation of Joints or Extremities Neurological: Cranial nerves II-XII grossly intact Psych/Mental Status: Normal Affect, Appropriate, Alert and oriented to time, place, person, mood and affect Vital Signs Temp Pulse Resp BP Pulse Ox 98.2 F 63 18 131/80 H 96 03/19/18 19:11 03/20/18 07:50 03/19/18 21:00 03/19/18 21:14 03/19/18 21:00 Oxygen Delivery Method Room Air Weight: 82 kg Body Mass Index (BMI) 29.5 Finger Stick Blood Glucose 114 Intake and Output for Last 24 Hours 03/18/18 03/19/18 03/20/18 23:59 23:59 23:59 Intake Total 480 / 480 480 / 480 Balance 480 / 480 480 / 480 Laboratory Tests Past 24 Hrs 03/20/18 05:00 PT 23.3 H INR 2.1 Active Medications Acetaminophen (Tylenol) 650 mg PO Q4H PRN PRN PRN Reason: Mild Pain (0-3/10)/Headache Last Admin: 03/07/18 05:21 Dose: 650 mg Albuterol Sulfate (Ventolin Aerosols) 2.5 mg INHALATION Q6H PRN PRN Reason: sob/wheezes Amitriptyline HCl (Elavil) 25 mg PO QHS [facility] Last Admin: 03/19/18 21:14 Dose: 25 mg Amlodipine Besylate (Norvasc) [address] [facility] Last Admin: 03/20/18 07:50 Dose: 5 mg Aspirin (Ecotrin) 81 mg PO DAILY@0800 [facility] Last Admin: 03/20/18 07:50 Dose: 81 mg Atorvastatin Calcium (Lipitor) [address] [facility] Last Admin: 03/19/18 21:13 Dose: 40 mg Bisacodyl (Dulcolax) 10 mg RECTAL .PRN X 1 PRN PRN Reason: Constipation Hydrocortisone (Hytone) 1 applic TOPICAL 599,2099 [facility]; Protocol Last Admin: 03/20/18 06:13 Dose: Not Given Lisinopril (Zestril) [address] [facility] Last Admin: 03/20/18 07:50 Dose: 20 mg Magnesium Hydroxide (Milk Of Magnesia) 30 ml PO .PRN X 1 PRN PRN Reason: Constipation Melatonin (Melatonin) [address] [facility] Last Admin: 03/19/18 21:13 Dose: 5 mg Metoprolol Tartrate (Lopressor (Beta Valeria)) [address] [facility] Last Admin: 03/20/18 07:50 Dose: 50 mg Nicotine (Nicoderm Cq (Pbkc)) [address] [facility] Last Admin: 03/19/18 10:45 Dose: 14 mg Nystatin (Nystatin) 500,000 unit PO 4X/DAY [facility] Last Admin: 03/19/18 21:14 Dose: 500,000 unit Senna/Docusate Sodium (Senokot-S, Marcia-Colace) [address] [facility] Last Admin: 03/20/18 07:50 Dose: 2 tablet Warfarin Sodium (Coumadin (Pbkc)) 5 mg PO DAILY@1700 [facility] Last Admin: 03/19/18 18:12 Dose: 5 mg Medical Necessity - Tobacco Use Smoking Status: Current some day smoker Tobacco Use: Cigarettes Assessment/Plan All Active Problems (Last Reviewed 03/02/18 @ 15:28 by Timothy Hernandez MD) CVA (cerebral vascular accident) (Acute) Debility S/P right MCA distribution infarct. Complicated by new onset atrial fibrillation. Goal of rehab is congregational of prior level of functional independence Plan: - Therapy for gait and balance - Occupational Therapy for ADLs - Speech therapy - Diet => Pur?ed with honey thickened liquids - Insomnia => Melatonin 3mg, and Elavil an hour prior to bedtime, d/c Ativan - Bowel protocol - DVT prophylaxis => SCDs, Juancarlos hoses, Lovenox start on Coumadin 5 mg - New onset A-Fib = > INR is 1.5 - obtain Daily INRs, continue Lovenox, increase Coumadin 7mg once INR is 2 - 3 d/c Lovenox. - PRN analgesics - Moist cough, with diminished breath sounds in the bases, with scattered Rhonchi through out => Obtain CXR => chest x-ray negative for any acute processes. - [place] Chatman water protocol, repeat Swallow Evaluation in two to three weeks. - Discharge is planned for Thursday 03/22 to either home or SNF - Recommend family participate in Share care prior to discharge
[2018-03-20] MEDS: NYSTATIN 500,000 UNIT/5 ML UDC 500000 UNIT PO ×4 (11:59→21:35)
--- NOTE | 2018-03-20 12:28 | CASEMGMT ---
Social Work Telephone call from REENA Villanueva. Kay reporting that patient was denied skilled stay by patient insurance. Spoke with patient and patient family. This manager social communicating above information. Patient plans to discharge to home with daughter and son-in-law. Daughter reporting that patient will have 24hr care within the home at time of discharge. This manager social communicating that physical, occupational, and speech therapy are recommending for patient to continue with services within the home. Patient/patient daughter agreeable to recommendation and also requesting for a home health aide to be set up. Patient requesting for home health services to be set up through [facility] ([facility] Patient reporting to be unsure of durable medical equipment needs at this time, patient to be teamed tomorrow and will discuss with team at that point the durable medical equipment needs. Support given. [facility] This manager social making referral for physical, occupational, and speech therapy as well as a home health aide. Order to be faxed when obtained. Proposed discharge date: 03/22/18 PLAN: Discharge to home with family and home health care. Petra COOK, VESSEL LINER
[2018-03-20 13:03] VITALS: BMI 29.5
--- NOTE | 2018-03-20 16:19 | PCM.PN.HOSP ---
Subjective: Blood pressure is controlled. No fever. No respiratory distress. No hypoxia or tachypnea. Objective: General: Alert, Oriented x3, Cooperative. Not in pain HEENT: Atraumatic, PERRLA, EOMI, Normocephalic Neck: Supple, No JVD, Negative Carotid Bruits Lungs: Clear to auscultation, Normal air movement Cardiovascular: Regular rate, Regular Rhythm, Normal S1, Normal S2, No murmurs Abdomen: Bowel Sounds Present, Soft, Non Tender Extremities: No edema, Capillary Refill Less than 3 Seconds Skin: No rashes, No breakdown Musculoskeletal: No Tenderness to Palpation of Joints or Extremities, Arthritic Changes Neurological: Cranial nerves II-XII grossly intact. Mild left-sided weakness. Dysarthria with slurring has improved. 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 Psych/Mental Status: Normal Affect, Appropriate Vitals/I&O's: Vital Signs Temp Pulse Resp BP Pulse Ox 97.7 F L 63 18 133/68 H 93 03/20/18 08:00 03/20/18 08:00 03/20/18 08:00 03/20/18 08:00 03/20/18 08:00 Oxygen Delivery Method Room Air Weight: 180 lb 12.465 oz Body Mass Index (BMI) 29.5 Finger Stick Blood Glucose 114 Intake and Output for Last 24 Hours 03/18/18 03/19/18 03/20/18 23:59 23:59 23:59 Intake Total 480 / 480 480 / 480 480 / 480 Balance 480 / 480 480 / 480 480 / 480 Laboratory Results 03/20/18 05:00: PT 23.3 H, INR 2.1 Current Medications Acetaminophen (Tylenol) 650 mg PO Q4H PRN PRN PRN Reason: Mild Pain (0-3/10)/Headache Last Admin: 03/07/18 05:21 Dose: 650 mg Albuterol Sulfate (Ventolin Aerosols) 2.5 mg INHALATION Q6H PRN PRN Reason: sob/wheezes Amitriptyline HCl (Elavil) 25 mg PO QHS [facility] Last Admin: 03/19/18 21:14 Dose: 25 mg Amlodipine Besylate (Norvasc) 5 mg PO DAILY [facility] Last Admin: 03/20/18 07:50 Dose: 5 mg Aspirin (Ecotrin) 81 mg PO DAILY@0800 [facility] Last Admin: 03/20/18 07:50 Dose: 81 mg Atorvastatin Calcium (Lipitor) 40 mg PO QHS [facility] Last Admin: 03/19/18 21:13 Dose: 40 mg Bisacodyl (Dulcolax) 10 mg RECTAL .PRN X 1 PRN PRN Reason: Constipation Hydrocortisone (Hytone) 1 applic TOPICAL 0600,2100 [facility]; Protocol Last Admin: 03/20/18 06:13 Dose: Not Given Lisinopril (Zestril) 20 mg PO DAILY [facility] Last Admin: 03/20/18 07:50 Dose: 20 mg Magnesium Hydroxide (Milk Of Magnesia) 30 ml PO .PRN X 1 PRN PRN Reason: Constipation Melatonin (Melatonin) 5 mg PO 1999 [facility] Last Admin: 03/19/18 21:13 Dose: 5 mg Metoprolol Tartrate (Lopressor (Beta Valeria)) 50 mg PO BID [facility] Last Admin: 03/20/18 07:50 Dose: 50 mg Nicotine (Nicoderm Cq (Pbkc)) 14 mg TRANSDERM. DAILY [facility] Last Admin: 03/20/18 11:59 Dose: 14 mg Nystatin (Nystatin) 500,000 unit PO 4X/DAY [facility] Last Admin: 03/20/18 13:28 Dose: 500,000 unit Senna/Docusate Sodium (Senokot-S, Marcia-Colace) 2 tablet PO BID [facility] Last Admin: 03/20/18 07:50 Dose: 2 tablet Warfarin Sodium (Coumadin (Pbkc)) 5 mg PO DAILY@1700 [facility] Last Admin: 03/19/18 18:12 Dose: 5 mg Medical Necessity - Tobacco Use Smoking Status: Current some day smoker Tobacco Use: Cigarettes Assessment/Plan All Active Problems (Last Reviewed 03/02/18 @ 15:28 by Timothy Hernandez MD) CVA (cerebral vascular accident) (Acute) This is a 82-year-old gentleman with a history of hypertension, dyslipidemia and nicotine use was admitted to rehab unit after he had right MCA ischemic infarct. Patient had sudden left-sided hemiplegia and was found out of time window for TPA and neuro intervention. This was discussed with [facility] neuro interventionalist. Thereafter, conservative management was planned. 1. 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 fib. On atorvastatin 40 mg daily. On dysphagia diet puree with honey thick. Patient is doing good on physical therapy. Has improvement on weakness and dysarthria and language. 2. New onset atrial fibrillation: Continue home dose of metoprolol and Norvasc. On lisinopril 20 mg daily. INR therapeutic 2.1. Coumadin 5 mg daily. 3. Hypertension and dyslipidemia: BP is controlled. 4. Chronic nicotine use: On nicotine patch. Smoking cessation advised. Laboratory Results 03/20/18 05:00: PT 23.3 H, INR 2.1 Clinical Impression(s) from Imaging Studies Brain CT 03/02/18 06:46 IMPRESSION: 1. Subacute right MCA infarct. 2. Chronic involutional changes of the brain. Chest X-Ray 03/04/18 10:00 IMPRESSION: Stable appearance of the chest with no new or acute pathology. Active Medications Acetaminophen (Tylenol) 650 mg PO Q4H PRN PRN PRN Reason: Mild Pain (0-3/10)/Headache Last Admin: 03/07/18 05:21 Dose: 650 mg Albuterol Sulfate (Ventolin Aerosols) 2.5 mg INHALATION Q6H PRN PRN Reason: sob/wheezes Amitriptyline HCl (Elavil) 25 mg PO QHS [facility] Last Admin: 03/19/18 21:14 Dose: 25 mg Amlodipine Besylate (Norvasc) 5 mg PO DAILY [facility] Last Admin: 03/20/18 07:50 Dose: 5 mg Aspirin (Ecotrin) 81 mg PO DAILY@0800 [facility] Last Admin: 03/20/18 07:50 Dose: 81 mg Atorvastatin Calcium (Lipitor) 40 mg PO QHS [facility] Last Admin: 03/19/18 21:13 Dose: 40 mg Bisacodyl (Dulcolax) 10 mg RECTAL .PRN X 1 PRN PRN Reason: Constipation Hydrocortisone (Hytone) 1 applic TOPICAL 0600,2100 [facility]; Protocol Last Admin: 03/20/18 06:13 Dose: Not Given Lisinopril (Zestril) 20 mg PO DAILY [facility] Last Admin: 03/20/18 07:50 Dose: 20 mg Magnesium Hydroxide (Milk Of Magnesia) 30 ml PO .PRN X 1 PRN PRN Reason: Constipation Melatonin (Melatonin) 5 mg PO 1999 [facility] Last Admin: 03/19/18 21:13 Dose: 5 mg Metoprolol Tartrate (Lopressor (Beta Valeria)) 50 mg PO BID [facility] Last Admin: 03/20/18 07:50 Dose: 50 mg Nicotine (Nicoderm Cq (Pbkc)) 14 mg TRANSDERM. DAILY [facility] Last Admin: 03/20/18 11:59 Dose: 14 mg Nystatin (Nystatin) 500,000 unit PO 4X/DAY [facility] Last Admin: 03/20/18 13:28 Dose: 500,000 unit Senna/Docusate Sodium (Senokot-S, Marcia-Colace) 2 tablet PO BID [facility] Last Admin: 03/20/18 07:50 Dose: 2 tablet Warfarin Sodium (Coumadin (Pbkc)) 5 mg PO DAILY@1700 [facility] Last Admin: 03/19/18 18:12 Dose: 5 mg Code Visit Inpatient E&M: 64384 Subs Hosp L2
--- NOTE | 2018-03-20 16:22 | PN_ITS ---
Subjective: Blood pressure is controlled. No fever. No respiratory distress. No hypoxia or tachypnea. Objective: General: Alert, Oriented x3, Cooperative. Not in pain HEENT: Atraumatic, PERRLA, EOMI, Normocephalic Neck: Supple, No JVD, Negative Carotid Bruits Lungs: Clear to auscultation, Normal air movement Cardiovascular: Regular rate, Regular Rhythm, Normal S1, Normal S2, No murmurs Abdomen: Bowel Sounds Present, Soft, Non Tender Extremities: No edema, Capillary Refill Less than 3 Seconds Skin: No rashes, No breakdown Musculoskeletal: No Tenderness to Palpation of Joints or Extremities, Arthritic Changes Neurological: Cranial nerves II-XII grossly intact. Mild left-sided weakness. Dysarthria with slurring has improved. 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 Psych/Mental Status: Normal Affect, Appropriate Vitals/I&O's: Vital Signs Temp Pulse Resp BP Pulse Ox 97.7 F L 63 18 133/68 H 93 03/20/18 08:00 03/20/18 08:00 03/20/18 08:00 03/20/18 08:00 03/20/18 08:00 Oxygen Delivery Method Room Air Weight: 180 lb 12.465 oz Body Mass Index (BMI) 29.5 Finger Stick Blood Glucose 114 Intake and Output for Last 24 Hours 03/18/18 03/19/18 03/20/18 23:59 23:59 23:59 Intake Total 480 / 480 480 / 480 480 / 480 Balance 480 / 480 480 / 480 480 / 480 Laboratory Results 03/20/18 05:00: PT 23.3 H, INR 2.1 Current Medications Acetaminophen (Tylenol) 650 mg PO Q4H PRN PRN PRN Reason: Mild Pain (0-3/10)/Headache Last Admin: 03/07/18 05:21 Dose: 650 mg Albuterol Sulfate (Ventolin Aerosols) 2.5 mg INHALATION Q6H PRN PRN Reason: sob/wheezes Amitriptyline HCl (Elavil) 25 mg PO QHS [facility] Last Admin: 03/19/18 21:14 Dose: 25 mg Amlodipine Besylate (Norvasc) 5 mg PO DAILY [facility] Last Admin: 03/20/18 07:50 Dose: 5 mg Aspirin (Ecotrin) 81 mg PO DAILY@0800 [facility] Last Admin: 03/20/18 07:50 Dose: 81 mg Atorvastatin Calcium (Lipitor) 40 mg PO QHS [facility] Last Admin: 03/19/18 21:13 Dose: 40 mg Bisacodyl (Dulcolax) 10 mg RECTAL .PRN X 1 PRN PRN Reason: Constipation Hydrocortisone (Hytone) 1 applic TOPICAL 0600,2100 [facility]; Protocol Last Admin: 03/20/18 06:13 Dose: Not Given Lisinopril (Zestril) 20 mg PO DAILY [facility] Last Admin: 03/20/18 07:50 Dose: 20 mg Magnesium Hydroxide (Milk Of Magnesia) 30 ml PO .PRN X 1 PRN PRN Reason: Constipation Melatonin (Melatonin) 5 mg PO 1999 [facility] Last Admin: 03/19/18 21:13 Dose: 5 mg Metoprolol Tartrate (Lopressor (Beta Valeria)) 50 mg PO BID [facility] Last Admin: 03/20/18 07:50 Dose: 50 mg Nicotine (Nicoderm Cq (Pbkc)) 14 mg TRANSDERM. DAILY [facility] Last Admin: 03/20/18 11:59 Dose: 14 mg Nystatin (Nystatin) 500,000 unit PO 4X/DAY [facility] Last Admin: 03/20/18 13:28 Dose: 500,000 unit Senna/Docusate Sodium (Senokot-S, Marcia-Colace) 2 tablet PO BID [facility] Last Admin: 03/20/18 07:50 Dose: 2 tablet Warfarin Sodium (Coumadin (Pbkc)) 5 mg PO DAILY@1700 [facility] Last Admin: 03/19/18 18:12 Dose: 5 mg Medical Necessity - Tobacco Use Smoking Status: Current some day smoker Tobacco Use: Cigarettes Assessment/Plan All Active Problems (Last Reviewed 03/02/18 @ 15:28 by Timothy Hernandez MD) CVA (cerebral vascular accident) (Acute) This is a 82-year-old gentleman with a history of hypertension, dyslipidemia and nicotine use was admitted to rehab unit after he had right MCA ischemic infarct. Patient had sudden left-sided hemiplegia and was found out of time window for TPA and neuro intervention. This was discussed with [facility] neuro interventionalist. Thereafter, conservative management was planned. 1. 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 fib. On atorvastatin 40 mg daily. On dysphagia diet puree with honey thick. Patient is doing good on physical therapy. Has improvement on weakness and dysarthria and language. 2. New onset atrial fibrillation: Continue home dose of metoprolol and Norvasc. On lisinopril 20 mg daily. INR therapeutic 2.1. Coumadin 5 mg daily. 3. Hypertension and dyslipidemia: BP is controlled. 4. Chronic nicotine use: On nicotine patch. Smoking cessation advised. Laboratory Results 03/20/18 05:00: PT 23.3 H, INR 2.1 Clinical Impression(s) from Imaging Studies Brain CT 03/02/18 06:46 IMPRESSION: 1. Subacute right MCA infarct. 2. Chronic involutional changes of the brain. Chest X-Ray 03/04/18 10:00 IMPRESSION: Stable appearance of the chest with no new or acute pathology. Active Medications Acetaminophen (Tylenol) 650 mg PO Q4H PRN PRN PRN Reason: Mild Pain (0-3/10)/Headache Last Admin: 03/07/18 05:21 Dose: 650 mg Albuterol Sulfate (Ventolin Aerosols) 2.5 mg INHALATION Q6H PRN PRN Reason: sob/wheezes Amitriptyline HCl (Elavil) 25 mg PO QHS [facility] Last Admin: 03/19/18 21:14 Dose: 25 mg Amlodipine Besylate (Norvasc) 5 mg PO DAILY [facility] Last Admin: 03/20/18 07:50 Dose: 5 mg Aspirin (Ecotrin) 81 mg PO DAILY@0800 [facility] Last Admin: 03/20/18 07:50 Dose: 81 mg Atorvastatin Calcium (Lipitor) 40 mg PO QHS [facility] Last Admin: 03/19/18 21:13 Dose: 40 mg Bisacodyl (Dulcolax) 10 mg RECTAL .PRN X 1 PRN PRN Reason: Constipation Hydrocortisone (Hytone) 1 applic TOPICAL 0600,2100 [facility]; Protocol Last Admin: 03/20/18 06:13 Dose: Not Given Lisinopril (Zestril) 20 mg PO DAILY [facility] Last Admin: 03/20/18 07:50 Dose: 20 mg Magnesium Hydroxide (Milk Of Magnesia) 30 ml PO .PRN X 1 PRN PRN Reason: Constipation Melatonin (Melatonin) 5 mg PO 1999 [facility] Last Admin: 03/19/18 21:13 Dose: 5 mg Metoprolol Tartrate (Lopressor (Beta Valeria)) 50 mg PO BID [facility] Last Admin: 03/20/18 07:50 Dose: 50 mg Nicotine (Nicoderm Cq (Pbkc)) 14 mg TRANSDERM. DAILY [facility] Last Admin: 03/20/18 11:59 Dose: 14 mg Nystatin (Nystatin) 500,000 unit PO 4X/DAY [facility] Last Admin: 03/20/18 13:28 Dose: 500,000 unit Senna/Docusate Sodium (Senokot-S, Marcia-Colace) 2 tablet PO BID [facility] Last Admin: 03/20/18 07:50 Dose: 2 tablet Warfarin Sodium (Coumadin (Pbkc)) 5 mg PO DAILY@1700 [facility] Last Admin: 03/19/18 18:12 Dose: 5 mg Code Visit Inpatient E&M: 69065 Subs Hosp L2
[2018-03-20 21:30] VITALS: BP 131/66; PULSE 74; RESP 20; TEMP 36.8; O2SAT 95; BMI 29.5
[2018-03-20 21:34] VITALS: BP 131/66; PULSE 74
[2018-03-20] MEDS: Amitriptyline 25 MG Tablet PO (21:35)
[2018-03-20] MEDS: Atorvastatin Calcium 20 MG Tablet 40 MG PO (21:35)
[2018-03-20] MEDS: MELATONIN 10 MG TABLET 5 MG PO (21:35)
--- NOTE | 2018-03-21 03:45 | NURSING ---
Reviewed and agree with RAILWAY STATION MANAGER documentation and FIMs charting.
[2018-03-21 05:34] LABS: Prothrombin Time (Protime)PT. 22.3 SECONDS (11.7-14.9)
[2018-03-21 07:23] VITALS: BP 130/68; PULSE 71; RESP 20; TEMP 36.7; O2SAT 95
[2018-03-21 08:24] VITALS: BP 130/68; PULSE 71
[2018-03-21] MEDS: Aspirin E.C. 81 MG Tablet PO (08:24)
[2018-03-21] MEDS: amLODIPine 5 MG Tablet PO (08:24)
[2018-03-21] MEDS: Lisinopril 20 MG Tablet PO (08:24)
[2018-03-21] MEDS: Metoprolol Tartrate 50 MG Tablet PO ×2 (08:24→21:42)
[2018-03-21] MEDS: NYSTATIN 500,000 UNIT/5 ML UDC 500000 UNIT PO ×4 (08:24→21:42)
[2018-03-21] MEDS: Senna/Docusate Sodium 1 Tablet 2 TABLET PO ×2 (08:24→21:41)
--- NOTE | 2018-03-21 10:12 | CASEMGMT ---
Team meeting held. Patient present as well as patient daughter. Patient to discharge to home with daughter and son-in-law on 03/22/18 with home health services. Patient will either need a wide based quad cane or basic quad cane, therapy is working with patient today and will get back to this social service technician on what equipment is needed. Patient daughter plans to provide transportation home for patient at time of discharge. Support given. Order for home health services faxed to [facility] (referral already placed). Proposed discharge date: 03/22/18 PLAN: Discharge to home with daughter and home health services, will have 24hr care per patient daughter. Petra COOK, CLOTH PRINTING UTILITY WORKER
--- NOTE | 2018-03-21 10:32 | PCM.PN.NEU ---
Subjective: Staffed in team meeting. Family at bedside, questions answered. With Physical therapy, he is minimal assist to get in and out of bed. He is stand by assist for standing and pivoting. He is walking 135 - 150 feet using a large quad cane, will trail a smaller quad cane today to see how he does. He does drag his leg when he is tired, and requires a light hand for balance and safety. He has walked up and down 5 steps using 1 hand rail at minimal assistance. With Occupational therapy, He is minimal assist for bathing requiring help with washing his feet. With upper body dressing he requires minimal assistance, specially with getting his shirt on using one hand. With lower body he is doing well requires assistance with getting and tieing his shoes. He is doing well with toileting transfers and hygiene. With Speech he is on a soft diet with Honey thicken liquids. With cogitative issues working on executive function deficits, has some mild left sided deficits. Will continue to work on Oral motor exercises. With Nursing no issues, he is not having any pain per the patient. He will be discharged home on Thursday 03/22 with Home Health, Physical therapy, Occupational therapy, and Speech therapy. - Physical Exam General: Alert, Oriented x3, Cooperative HEENT: Atraumatic, PERRLA, EOMI, Normocephalic Neck: Supple, No JVD, Negative Carotid Bruits Lungs: Clear to auscultation, Normal air movement Cardiovascular: Regular rate, No murmurs Abdomen: Bowel Sounds Present, Soft, Non Tender Extremities: No edema, Capillary Refill Less than 3 Seconds Skin: No rashes, No breakdown Musculoskeletal: No Tenderness to Palpation of Joints or Extremities Neurological: Cranial nerves II-XII grossly intact Psych/Mental Status: Normal Affect, Appropriate, Alert and oriented to time, place, person, mood and affect Vital Signs Temp Pulse Resp BP Pulse Ox 98.0 F 71 20 H 130/68 H 95 03/21/18 07:23 03/21/18 08:24 03/21/18 07:23 03/21/18 08:24 03/21/18 07:23 Oxygen Delivery Method Room Air Weight: 82 kg Body Mass Index (BMI) 29.5 Finger Stick Blood Glucose 114 Intake and Output for Last 24 Hours 03/19/18 03/20/18 03/21/18 23:59 23:59 23:59 Intake Total 480 / 480 480 / 480 240 / 240 Balance 480 / 480 480 / 480 240 / 240 Laboratory Tests Past 24 Hrs 03/21/18 05:10 PT 22.3 H INR 2.0 Active Medications Acetaminophen (Tylenol) 650 mg PO Q4H PRN PRN PRN Reason: Mild Pain (0-3/10)/Headache Last Admin: 03/07/18 05:21 Dose: 650 mg Albuterol Sulfate (Ventolin Aerosols) 2.5 mg INHALATION Q6H PRN PRN Reason: sob/wheezes Amitriptyline HCl (Elavil) 25 mg PO QHS [facility] Last Admin: 03/20/18 21:35 Dose: 25 mg Amlodipine Besylate (Norvasc) 5 mg PO DAILY [facility] Last Admin: 03/21/18 08:24 Dose: 5 mg Aspirin (Ecotrin) 81 mg PO DAILY@0800 [facility] Last Admin: 03/21/18 08:24 Dose: 81 mg Atorvastatin Calcium (Lipitor) 40 mg PO QHS [facility] Last Admin: 03/20/18 21:35 Dose: 40 mg Bisacodyl (Dulcolax) 10 mg RECTAL .PRN X 1 PRN PRN Reason: Constipation Hydrocortisone (Hytone) 1 applic TOPICAL 0600,2100 [facility]; Protocol Last Admin: 03/21/18 05:57 Dose: Not Given Lisinopril (Zestril) 20 mg PO DAILY [facility] Last Admin: 03/21/18 08:24 Dose: 20 mg Magnesium Hydroxide (Milk Of Magnesia) 30 ml PO .PRN X 1 PRN PRN Reason: Constipation Melatonin (Melatonin) 5 mg PO 1999 [facility] Last Admin: 03/20/18 21:35 Dose: 5 mg Metoprolol Tartrate (Lopressor (Beta Valeria)) 50 mg PO BID [facility] Last Admin: 03/21/18 08:24 Dose: 50 mg Nicotine (Nicoderm Cq (Pbkc)) 14 mg TRANSDERM. DAILY [facility] Last Admin: 03/21/18 08:24 Dose: 14 mg Nystatin (Nystatin) 500,000 unit PO 4X/DAY [facility] Last Admin: 03/21/18 08:24 Dose: 500,000 unit Senna/Docusate Sodium (Senokot-S, Marcia-Colace) 2 tablet PO BID [facility] Last Admin: 03/21/18 08:24 Dose: 2 tablet Warfarin Sodium (Coumadin (Pbkc)) 7.5 mg PO DAILY@1700 [facility] Medical Necessity - Tobacco Use Smoking Status: Current some day smoker Tobacco Use: Cigarettes Assessment/Plan All Active Problems (Last Reviewed 03/02/18 @ 15:28 by Timothy Hernandez MD) CVA (cerebral vascular accident) (Acute) Debility S/P right MCA distribution infarct. Complicated by new onset atrial fibrillation. Goal of rehab is mandaeism of prior level of functional independence Plan: - Therapy for gait and balance - Occupational Therapy for ADLs - Speech therapy - Diet => Pur?ed with honey thickened liquids - Insomnia => Melatonin 3mg, and Elavil an hour prior to bedtime, d/c Ativan - Bowel protocol - DVT prophylaxis => SCDs, Juancarlos hoses, Lovenox start on Coumadin 5 mg - New onset A-Fib = > INR is 1.5 - obtain Daily INRs, continue Lovenox, increase Coumadin 7mg once INR is 2 - 3 d/c Lovenox. - PRN analgesics - Moist cough, with diminished breath sounds in the bases, with scattered Rhonchi through out => Obtain CXR => chest x-ray negative for any acute processes. - Milano Chatman water protocol, repeat Swallow Evaluation in two to three weeks. - Discharge is planned for Thursday 03/22 t home with Home health, Physical therapy, Occupational therapy and Speech therapy. - Family participated in [facility] today after team meeting.
--- NOTE | 2018-03-21 13:31 | CASEMGMT ---
Social Work Spoke with therapy, therapy reporting that patient will need a basic quad cane at time of discharge. Spoke with patient and patient daughter, requesting for quad cane to be set up through [facility]. Support given. Telephone call to [facility], Order faxed for quad cane. [facility] to have cane delivered to patient room prior to patient discharge on 03/22/18. Proposed discharge date: 03/22/18 PLAN: Discharge to home with daughter and home health care. Petra COOK, CYBER DEFENSE INCIDENT RESPONDER
[2018-03-21 14:12] VITALS: BMI 29.5
[2018-03-21 20:21] VITALS: BP 140/69; PULSE 79; RESP 20; TEMP 36.9; O2SAT 96
[2018-03-21] MEDS: MELATONIN 10 MG TABLET 5 MG PO (20:43)
[2018-03-21 21:42] VITALS: BP 140/69; PULSE 79
[2018-03-21] MEDS: Atorvastatin Calcium 20 MG Tablet 40 MG PO (21:42)
[2018-03-21] MEDS: Hydrocortisone 2.5% Crm 1 APPLIC TOPICAL (21:43)
[2018-03-21] MEDS: Amitriptyline 25 MG Tablet PO (21:43)
[2018-03-22 05:00] VITALS: BMI 29.5
[2018-03-22] MEDS: Hydrocortisone 2.5% Crm 1 APPLIC TOPICAL (05:45)
[2018-03-22 06:49] LABS: Prothrombin Time (Protime)PT. 22.3 SECONDS (11.7-14.9)
[2018-03-22 07:49] VITALS: BP 130/70; PULSE 63; RESP 20; TEMP 36.5; O2SAT 93
[2018-03-22 08:10] VITALS: PULSE 63
[2018-03-22] MEDS: Lisinopril 20 MG Tablet PO (08:10)
[2018-03-22] MEDS: amLODIPine 5 MG Tablet PO (08:10)
[2018-03-22] MEDS: NYSTATIN 500,000 UNIT/5 ML UDC 500000 UNIT PO ×2 (08:10→13:22)
[2018-03-22] MEDS: Aspirin E.C. 81 MG Tablet PO (08:10)
[2018-03-22] MEDS: Metoprolol Tartrate 50 MG Tablet PO (08:10)
--- NOTE | 2018-03-22 10:53 | PCM.RU.DC ---
Rehab Discharge Summary DATE OF ADMISSION: 03/01/18 DATE OF DISCHARGE: 03/22/18 - Rehab Diagnosis CVA - Physical Exam General: Alert, Oriented x3, Cooperative HEENT: Atraumatic, PERRLA, EOMI, Normocephalic Neck: Supple, No JVD, Negative Carotid Bruits Lungs: Clear to auscultation, Normal air movement Cardiovascular: Regular rate, No murmurs Abdomen: Bowel Sounds Present, Soft, Non Tender Extremities: No edema, Capillary Refill Less than 3 Seconds Skin: No rashes, No breakdown Musculoskeletal: No Tenderness to Palpation of Joints or Extremities Neurological: Cranial nerves II-XII grossly intact Psych/Mental Status: Normal Affect, Appropriate, Alert and oriented to time, place, person, mood and affect Vital Signs Temp Pulse Resp BP Pulse Ox 97.7 F L 63 20 H 130/70 H 93 03/22/18 07:49 03/22/18 08:10 03/22/18 07:49 03/22/18 07:49 03/22/18 07:49 Oxygen Delivery Method Room Air Weight: 82 kg Body Mass Index (BMI) 29.5 Finger Stick Blood Glucose 114 Intake and Output for Last 24 Hours 03/20/18 03/21/18 03/22/18 23:59 23:59 23:59 Intake Total 480 / 480 720 / 720 Balance 480 / 480 720 / 720 Laboratory Tests Past 24 Hrs 03/22/18 05:21 PT 22.3 H INR 2.0 Active Medications Acetaminophen (Tylenol) 650 mg PO Q4H PRN PRN PRN Reason: Mild Pain (0-3/10)/Headache Last Admin: 03/07/18 05:21 Dose: 650 mg Albuterol Sulfate (Ventolin Aerosols) 2.5 mg INHALATION Q6H PRN PRN Reason: sob/wheezes Amitriptyline HCl (Elavil) 25 mg PO QHS REPLACED BY [facility] Last Admin: 03/21/18 21:43 Dose: 25 mg Amlodipine Besylate (Norvasc) 5 mg PO DAILY REPLACED BY [facility] Last Admin: 03/22/18 08:10 Dose: 5 mg Aspirin (Ecotrin) 81 mg PO DAILY@0800 REPLACED BY [facility] Last Admin: 03/22/18 08:10 Dose: 81 mg Atorvastatin Calcium (Lipitor) 40 mg PO QHS REPLACED BY [facility] Last Admin: 03/21/18 21:42 Dose: 40 mg Bisacodyl (Dulcolax) 10 mg RECTAL .PRN X 1 PRN PRN Reason: Constipation Hydrocortisone (Hytone) 1 applic TOPICAL 0600,2099 REPLACED BY [facility]; Protocol Last Admin: 03/22/18 05:45 Dose: 1 applicatio Lisinopril (Zestril) 20 mg PO DAILY REPLACED BY [facility] Last Admin: 03/22/18 08:10 Dose: 20 mg Magnesium Hydroxide (Milk Of Magnesia) 30 ml PO .PRN X 1 PRN PRN Reason: Constipation Melatonin (Melatonin) 5 mg PO 1999 REPLACED BY [facility] Last Admin: 03/21/18 20:43 Dose: 5 mg Metoprolol Tartrate (Lopressor (Beta Valeria)) 50 mg PO BID REPLACED BY [facility] Last Admin: 03/22/18 08:10 Dose: 50 mg Nicotine (Nicoderm Cq (Pbkc)) 14 mg TRANSDERM. DAILY REPLACED BY [facility] Last Admin: 03/22/18 08:10 Dose: 14 mg Nystatin (Nystatin) 500,000 unit PO 4X/DAY REPLACED BY [facility] Last Admin: 03/22/18 08:10 Dose: 500,000 unit Senna/Docusate Sodium (Senokot-S, Marcia-Colace) 2 tablet PO BID REPLACED BY [facility] Last Admin: 03/22/18 08:10 Dose: Not Given Warfarin Sodium (Coumadin (Pbkc)) 7.5 mg PO DAILY@1700 REPLACED BY [facility] Last Admin: 03/21/18 17:51 Dose: 7.5 mg Discharge Diet: Soft diet - with Honey thicken liquids Discharge Activity: May Not Drive, May Shower, May Take a Tub Bath, Use Walker Weight Bearing Status: Weight bearing as tolerated Call your doctor if you observe: Fever of 101 or Higher, Coldness, Increased Pain, Numbness or Tingling, Change in Color, Inability to urinate, Inability to have a bowel movement, Using more than one pad per hour, Shortness of breath, Dizziness, Fainting spells, Swelling in the ankles, Chest pain, Prolonged hiccoughing, Increased palpitations (irregular heartbeat), Calf discomfort, Uncontrolled pain Home Medications: Medications to take at Discharge aspirin 81 mg tablet,delayed release 81 mg PO DAILY 0 Days 04/30/17 Acetaminophen [Tylenol Tablet] 650 mg PO Q4H PRN PRN tablet 03/22/18 Amitriptyline HCl [Elavil] 25 mg PO QHS #60 tab 03/22/18 Amlodipine [Norvasc] 5 mg PO DAILY #60 tab 03/22/18 Atorvastatin Calcium [Lipitor] 40 mg PO QHS #60 tab 03/22/18 Hydrocortisone 2.5% Crm [Hytone] 1 applic TOPICAL 0600,2100 tube 03/22/18 Lisinopril [Zestril] 20 mg PO DAILY #60 tab 03/22/18 Melatonin 5 mg PO 2000 tablet 03/22/18 Metoprolol Tartrate [Lopressor (beta valeria)] 50 mg PO BID #120 tab 03/22/18 Nicotine [Nicoderm] 14 mg TRANSDERM. DAILY #14 patch 03/22/18 Warfarin [Coumadin] 7.5 mg PO DAILY@1700 #60 tab 03/22/18 Following Prescrptions Were Given to Patient: Amitriptyline HCl [Elavil] 25 mg PO QHS #60 tab Amlodipine [Norvasc] 5 mg PO DAILY #60 tab Atorvastatin Calcium [Lipitor] 40 mg PO QHS #60 tab Lisinopril [Zestril] 20 mg PO DAILY #60 tab Nicotine [Nicoderm] 14 mg TRANSDERM. DAILY #14 patch Warfarin [Coumadin] 7.5 mg PO DAILY@1700 #60 tab Metoprolol Tartrate [Lopressor (beta valeria)] 50 mg PO BID #120 tab Other Amb Orders: Prothrombin Time w/INR Time Frame: 03/28/18, Location: Laboratory Primary Care Physician: Derek Singh Chi, MD [Primary Care Provider] - Please Follow Up With: [facility] Please Follow Up With: Derek Singh Chi, MD Please Follow Up With: Elisabeth Jack NP-C Disposition: Home with Home Health Minutes spent on discharge:: 40 Patient Condition:: Good Rehab Course The patient is a 82 year old right-handed white male with a past medical history of hypertension, hyperlipidemia, and tobacco use, who presents to the rehab unit for rehabilitation 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 He initially presented to the emergency department with a last known well at 11:30 PM prior to the day of of admission presented to the emergency department after his family discovered that he had left-sided weakness this morning. Stroke team was called. He was outside of the window for TPA. Because of the delay in presentation possible intervention was discussed with [facility] neuro interventionalist and it was felt to be outside of the window for any intervention so he was treated conservatively. He was discovered to have new onset atrial fibrillation. He now presents to the rehab unit for rehabilitation in order to return home. He previously lived at home independently Summary of care: Debility S/P right MCA distribution infarct. Complicated by new onset atrial fibrillation. Goal of rehab is yarsani of prior level of functional independence Plan: - Therapy for gait and balance - Occupational Therapy for ADLs - Speech therapy - Diet => Pur?ed with honey thickened liquids => advance diet to soft diet continue with honey thicken liquids. - Insomnia => Melatonin 3mg, and Elavil an hour prior to bedtime, d/c Ativan => has resolved sleeping better - Bowel protocol - DVT prophylaxis => SCDs, Juancarlos hoses, Lovenox start on Coumadin 5 mg - New onset A-Fib = > INR is 1.5 - obtain Daily INRs, continue Lovenox, increase Coumadin 7mg once INR is 2 - 3 d/c Lovenox. Coumadin was Therapeutic on 03/11. INR has been between 2.0 to 3.0, currently the last two days has been 2.0. will obtain INR on discharge in 1 week on March 28, will follow up with PCP to manage levels. - PRN analgesics - Moist cough, with diminished breath sounds in the bases, with scattered Rhonchi through out => Obtain CXR => chest x-ray negative for any acute processes. - HX of tobacco use => started on Nicotine patch 14mg, will send home for 14 days then exchange teller to 7mg for 14 days. - Tolerating Chatman water protocol, repeat Swallow Evaluation in two to three weeks, after discharge from hospital. - Discharge is planned for Thursday 03/22 home with Home health, Physical therapy, Occupational therapy and Speech therapy. - Family participated in Share care on 03/21 after team meeting. - Follow up appointments scheduled. Summary of Therapy sessions: With Physical therapy, he is minimal assist to get in and out of bed. He is stand by assist for standing and pivoting. He is walking 135 - 150 feet using a large quad cane, will trail a smaller quad cane today to see how he does. He does drag his leg when he is tired, and requires a light hand for balance and safety. He has walked up and down 5 steps using 1 hand rail at minimal assistance. With Occupational therapy, He is minimal assist for bathing requiring help with washing his feet. With upper body dressing he requires minimal assistance, specially with getting his shirt on using one hand. With lower body he is doing well requires assistance with getting and tieing his shoes. He is doing well with toileting transfers and hygiene. With Speech he is on a soft diet with Honey thicken liquids. With cogitative issues working on executive function deficits, has some mild left sided deficits. Will continue to work on Oral motor exercises. With Nursing no issues, he is not having any pain per the patient. He will be discharged home on Thursday 03/22 with Home Health, Physical therapy, Occupational therapy, and Speech therapy, and all follow up appointments. Meaningful Use Info Meaningful Use Diagnoses (Choose all that apply): Ischemic CVA - CVA Therapy Assessed for PT,OT and/or ST?: Yes - Ischemic Stroke Antithrombotic order at d/c?: Yes Dx of Atrial fib/flutter?: Yes Anticoagulant at discharge?: Yes Statins at discharge?: Yes Primary Dx Acute Ischemic CVA?: Yes IV tPA ordered during stay?: No Reason IV t-PA not ordered: Medical Contraindication - was outside the window for therapy
[2018-03-22 10:56] VITALS: BMI 29.5
--- NOTE | 2018-03-22 10:57 | DS.PCM_ITS ---
Rehab Discharge Summary DATE OF ADMISSION: 03/01/18 DATE OF DISCHARGE: 03/22/18 - Rehab Diagnosis CVA - Physical Exam General: Alert, Oriented x3, Cooperative HEENT: Atraumatic, PERRLA, EOMI, Normocephalic Neck: Supple, No JVD, Negative Carotid Bruits Lungs: Clear to auscultation, Normal air movement Cardiovascular: Regular rate, No murmurs Abdomen: Bowel Sounds Present, Soft, Non Tender Extremities: No edema, Capillary Refill Less than 3 Seconds Skin: No rashes, No breakdown Musculoskeletal: No Tenderness to Palpation of Joints or Extremities Neurological: Cranial nerves II-XII grossly intact Psych/Mental Status: Normal Affect, Appropriate, Alert and oriented to time, place, person, mood and affect Vital Signs Temp Pulse Resp BP Pulse Ox 97.7 F L 63 20 H 130/70 H 93 03/22/18 07:49 03/22/18 08:10 03/22/18 07:49 03/22/18 07:49 03/22/18 07:49 Oxygen Delivery Method Room Air Weight: 82 kg Body Mass Index (BMI) 29.5 Finger Stick Blood Glucose 114 Intake and Output for Last 24 Hours 03/20/18 03/21/18 03/22/18 23:59 23:59 23:59 Intake Total 480 / 480 720 / 720 Balance 480 / 480 720 / 720 Laboratory Tests Past 24 Hrs 03/22/18 05:21 PT 22.3 H INR 2.0 Active Medications Acetaminophen (Tylenol) 650 mg PO Q4H PRN PRN PRN Reason: Mild Pain (0-3/10)/Headache Last Admin: 03/07/18 05:21 Dose: 650 mg Albuterol Sulfate (Ventolin Aerosols) 2.5 mg INHALATION Q6H PRN PRN Reason: sob/wheezes Amitriptyline HCl (Elavil) 25 mg PO QHS [facility] Last Admin: 03/21/18 21:43 Dose: 25 mg Amlodipine Besylate (Norvasc) 5 mg PO DAILY [facility] Last Admin: 03/22/18 08:10 Dose: 5 mg Aspirin (Ecotrin) 81 mg PO DAILY@0800 [facility] Last Admin: 03/22/18 08:10 Dose: 81 mg Atorvastatin Calcium (Lipitor) 40 mg PO QHS [facility] Last Admin: 03/21/18 21:42 Dose: 40 mg Bisacodyl (Dulcolax) 10 mg RECTAL .PRN X 1 PRN PRN Reason: Constipation Hydrocortisone (Hytone) 1 applic TOPICAL 0600,2099 [facility]; Protocol Last Admin: 03/22/18 05:45 Dose: 1 applicatio Lisinopril (Zestril) 20 mg PO DAILY [facility] Last Admin: 03/22/18 08:10 Dose: 20 mg Magnesium Hydroxide (Milk Of Magnesia) 30 ml PO .PRN X 1 PRN PRN Reason: Constipation Melatonin (Melatonin) 5 mg PO 1999 [facility] Last Admin: 03/21/18 20:43 Dose: 5 mg Metoprolol Tartrate (Lopressor (Beta Valeria)) 50 mg PO BID [facility] Last Admin: 03/22/18 08:10 Dose: 50 mg Nicotine (Nicoderm Cq (Pbkc)) 14 mg TRANSDERM. DAILY [facility] Last Admin: 03/22/18 08:10 Dose: 14 mg Nystatin (Nystatin) 500,000 unit PO 4X/DAY [facility] Last Admin: 03/22/18 08:10 Dose: 500,000 unit Senna/Docusate Sodium (Senokot-S, Marcia-Colace) 2 tablet PO BID [facility] Last Admin: 03/22/18 08:10 Dose: Not Given Warfarin Sodium (Coumadin (Pbkc)) 7.5 mg PO DAILY@1700 [facility] Last Admin: 03/21/18 17:51 Dose: 7.5 mg Discharge Diet: Soft diet - with Honey thicken liquids Discharge Activity: May Not Drive, May Shower, May Take a Tub Bath, Use Walker Weight Bearing Status: Weight bearing as tolerated Call your doctor if you observe: Fever of 101 or Higher, Coldness, Increased Pain, Numbness or Tingling, Change in Color, Inability to urinate, Inability to have a bowel movement, Using more than one pad per hour, Shortness of breath, Dizziness, Fainting spells, Swelling in the ankles, Chest pain, Prolonged hiccoughing, Increased palpitations (irregular heartbeat), Calf discomfort, Uncontrolled pain Home Medications: Medications to take at Discharge aspirin 81 mg tablet,delayed release 81 mg PO DAILY 0 Days 04/30/17 Acetaminophen [Tylenol Tablet] 650 mg PO Q4H PRN PRN tablet 03/22/18 Amitriptyline HCl [Elavil] 25 mg PO QHS #60 tab 03/22/18 Amlodipine [Norvasc] 5 mg PO DAILY #60 tab 03/22/18 Atorvastatin Calcium [Lipitor] 40 mg PO QHS #60 tab 03/22/18 Hydrocortisone 2.5% Crm [Hytone] 1 applic TOPICAL 0600,2100 tube 03/22/18 Lisinopril [Zestril] 20 mg PO DAILY #60 tab 03/22/18 Melatonin 5 mg PO 2000 tablet 03/22/18 Metoprolol Tartrate [Lopressor (beta valeria)] 50 mg PO BID #120 tab 03/22/18 Nicotine [Nicoderm] 14 mg TRANSDERM. DAILY #14 patch 03/22/18 Warfarin [Coumadin] 7.5 mg PO DAILY@1700 #60 tab 03/22/18 Following Prescrptions Were Given to Patient: Amitriptyline HCl [Elavil] 25 mg PO QHS #60 tab Amlodipine [Norvasc] 5 mg PO DAILY #60 tab Atorvastatin Calcium [Lipitor] 40 mg PO QHS #60 tab Lisinopril [Zestril] 20 mg PO DAILY #60 tab Nicotine [Nicoderm] 14 mg TRANSDERM. DAILY #14 patch Warfarin [Coumadin] 7.5 mg PO DAILY@1700 #60 tab Metoprolol Tartrate [Lopressor (beta valeria)] 50 mg PO BID #120 tab Other Amb Orders: Prothrombin Time w/INR Time Frame: 03/28/18, Location: Laboratory Primary Care Physician: Derek Singh Chi, MD [Primary Care Provider] - Please Follow Up With: [facility] Please Follow Up With: Derek Singh Chi, MD Please Follow Up With: Elisabeth Jack NP-C Disposition: Home with Home Health Minutes spent on discharge:: 40 Patient Condition:: Good Rehab Course The patient is a 82 year old right-handed white male with a past medical history of hypertension, hyperlipidemia, and tobacco use, who presents to the rehab unit for rehabilitation 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 He initially presented to the emergency department with a last known well at 11:30 PM prior to the day of of admission presented to the emergency department after his family discovered that he had left-sided weakness this morning. Stroke team was called. He was outside of the window for TPA. Because of the delay in presentation possible intervention was discussed with [facility] neuro interventionalist and it was felt to be outside of the window for any intervention so he was treated conservatively. He was discovered to have new onset atrial fibrillation. He now presents to the rehab unit for rehabilitation in order to return home. He previously lived at home independently Summary of care: Debility S/P right MCA distribution infarct. Complicated by new onset atrial fibrillation. Goal of rehab is evangelical of prior level of functional independence Plan: - Therapy for gait and balance - Occupational Therapy for ADLs - Speech therapy - Diet => Pur?ed with honey thickened liquids => advance diet to soft diet continue with honey thicken liquids. - Insomnia => Melatonin 3mg, and Elavil an hour prior to bedtime, d/c Ativan => has resolved sleeping better - Bowel protocol - DVT prophylaxis => SCDs, Juancarlos hoses, Lovenox start on Coumadin 5 mg - New onset A-Fib = > INR is 1.5 - obtain Daily INRs, continue Lovenox, increase Coumadin 7mg once INR is 2 - 3 d/c Lovenox. Coumadin was Therapeutic on 03/11. INR has been between 2.0 to 3.0, currently the last two days has been 2.0. will obtain INR on discharge in 1 week on March 28, will follow up with PCP to manage levels. - PRN analgesics - Moist cough, with diminished breath sounds in the bases, with scattered Rhonchi through out => Obtain CXR => chest x-ray negative for any acute processes. - HX of tobacco use => started on Nicotine patch 14mg, will send home for 14 days then exchange operator to 7mg for 14 days. - Tolerating Chatman water protocol, repeat Swallow Evaluation in two to three weeks, after discharge from hospital. - Discharge is planned for Thursday 03/22 home with Home health, Physical therapy, Occupational therapy and Speech therapy. - Family participated in Share care on 03/21 after team meeting. - Follow up appointments scheduled. Summary of Therapy sessions: With Physical therapy, he is minimal assist to get in and out of bed. He is stand by assist for standing and pivoting. He is walking 135 - 150 feet using a large quad cane, will trail a smaller quad cane today to see how he does. He does drag his leg when he is tired, and requires a light hand for balance and safety. He has walked up and down 5 steps using 1 hand rail at minimal assistance. With Occupational therapy, He is minimal assist for bathing requiring help with washing his feet. With upper body dressing he requires minimal assistance, specially with getting his shirt on using one hand. With lower body he is doing well requires assistance with getting and tieing his shoes. He is doing well with toileting transfers and hygiene. With Speech he is on a soft diet with Honey thicken liquids. With cogitative issues working on executive function deficits, has some mild left sided deficits. Will continue to work on Oral motor exercises. With Nursing no issues, he is not having any pain per the patient. He will be discharged home on Thursday 03/22 with Home Health, Physical therapy, Occupational therapy, and Speech therapy, and all follow up appointments. Meaningful Use Info Meaningful Use Diagnoses (Choose all that apply): Ischemic CVA - CVA Therapy Assessed for PT,OT and/or ST?: Yes - Ischemic Stroke Antithrombotic order at d/c?: Yes Dx of Atrial fib/flutter?: Yes Anticoagulant at discharge?: Yes Statins at discharge?: Yes Primary Dx Acute Ischemic CVA?: Yes IV tPA ordered during stay?: No Reason IV t-PA not ordered: Medical Contraindication - was outside the window for therapy
--- NOTE | 2018-03-22 11:14 | DCINST_ITS ---
- Discharge Diagnoses Reason(s) for Visit for Discharge Instructions: CVA You will use the following diet at home:: Other - Soft diet with Honey thicken liquids Your food should be the consistency of: Soft (bite-sized & easy to chew/swallow) Your liquids should be the consistency of: Honey Thick Discharge Activity: May Not Drive, May Shower, May Take a Tub Bath, Use Walker Weight Bearing Status: Weight bearing as tolerated Call your doctor if you observe: Fever of 101 or Higher, Coldness, Increased Pain, Numbness or Tingling, Change in Color, Inability to urinate, Inability to have a bowel movement, Using more than one pad per hour, Shortness of breath, Dizziness, Fainting spells, Swelling in the ankles, Chest pain, Prolonged hiccoughing, Increased palpitations (irregular heartbeat), Calf discomfort, Uncontrolled pain Allergies/Adverse Reactions: Allergies No Known Allergies Allergy (Verified 03/01/18 19:12) Medications to take at Discharge aspirin 81 mg tablet,delayed release 81 mg PO DAILY 0 Days 04/30/17 Acetaminophen [Tylenol Tablet] 650 mg PO Q4H PRN PRN tablet 03/22/18 Amitriptyline HCl [Elavil] 25 mg PO QHS #60 tab 03/22/18 Amlodipine [Norvasc] 5 mg PO DAILY #60 tab 03/22/18 Atorvastatin Calcium [Lipitor] 40 mg PO QHS #60 tab 03/22/18 Hydrocortisone 2.5% Crm [Hytone] 1 applic TOPICAL 0600,2100 tube 03/22/18 Lisinopril [Zestril] 20 mg PO DAILY #60 tab 03/22/18 Melatonin 5 mg PO 2000 tablet 03/22/18 Metoprolol Tartrate [Lopressor (beta marce)] 50 mg PO BID #120 tab 03/22/18 Nicotine [Nicoderm] 14 mg TRANSDERM. DAILY #14 patch 03/22/18 Warfarin [Coumadin] 7.5 mg PO DAILY@1700 #60 tab 03/22/18 The following prescriptions were given: Amitriptyline HCl [Elavil] 25 mg PO QHS #60 tab Amlodipine [Norvasc] 5 mg PO DAILY #60 tab Atorvastatin Calcium [Lipitor] 40 mg PO QHS #60 tab Lisinopril [Zestril] 20 mg PO DAILY #60 tab Nicotine [Nicoderm] 14 mg TRANSDERM. DAILY #14 patch Warfarin [Coumadin] 7.5 mg PO DAILY@1700 #60 tab Metoprolol Tartrate [Lopressor (beta marce)] 50 mg PO BID #120 tab Orders to be completed after discharge: Prothrombin Time w/INR Time Frame: 03/28/18, Location: Laboratory Primary Care Physician: Derek Singh Chi, MD [Primary Care Provider] - Test Results: Test results from this visit will be discussed in further detail at your follow- up appointment, if applicable. Please Follow Up With: [facility] Please Follow Up With: Derek Singh Chi, MD Please Follow Up With: Elisabeth Jack NP-C Proposed Discharge Date: 03/22/18
--- NOTE | 2018-03-22 16:32 | NURSING ---
patient and daughter verbalized understanding of discharge instructions. patient discharged home with daughter.
--- NOTE | 2018-03-22 16:57 | CASEMGMT ---
Insurance Notified insurance of patient discharge on 03/22/18 to home with daughter and home health services. Auth#[id number]
== END 2018-03-22 16:35 | disposition home health service (06) | DRG 57 ==
PROVIDERS: Family Medicine; Hospitalist; Internal Medicine; Nurse Practitioner Acute Care; Psychiatry & Neurology Neurology; Admitting Provider Psychiatry & Neurology Neurology; Family Provider Family Medicine Geriatric Medicine; PCP Family Medicine Geriatric Medicine; Referring Provider Psychiatry & Neurology Neurology; Visit Provider Internal Medicine
DX: I69.354 Hemiplegia and hemiparesis following cerebral infarction affecting left non-dominant side (principal); I69.322 Dysarthria following cerebral infarction; I25.10 Atherosclerotic heart disease of native coronary artery without angina pectoris; I10 Essential (primary) hypertension; E78.5 Hyperlipidemia, unspecified; I48.91 Unspecified atrial fibrillation; F17.210 Nicotine dependence, cigarettes, uncomplicated; Z85.21 Personal history of malignant neoplasm of larynx; G47.00 Insomnia, unspecified
CPT/HCPCS: 36415; 70450; 71046; 80048; 81001; 85027; 85610; 87086; 92507; 92523; 92526; 94640; 94667; 94668; 97110; 97112; 97116; 97162; 97165; 97530; 97535; 99406

== ENCOUNTER → 2018-03-28 13:47 | Outpatient (CLI) | payer MEDICARE, SELFPAY ==
[2018-03-28 16:42] LABS: Absolute Lymphocyte Count 1.45 X10^3/ul (0.83-4.51); Absolute Neutrophil Count 6.8 X10^3/uL (2.0-7.7); Basophil# 0.02 X10^3/uL; Basophil% 0.2 % (0-1); Eosinophil# 0.35 X10^3/uL; Eosinophils% 3.6 % (0-5); Hematocrit 42.5 % (40-54); Hemoglobin 14.7 g/dl (13.0-16.5); Lymphocyte # 1.45 X10^3/ul (4.0); Lymphocyte % 15.1 % (19-41); Mean Corp Hgb Conc 34.6 g/gl (32-36); Mean Corpuscular Hgb 35.5 pg (27.0-32.0); Mean Corpuscular Volume 102.7 fL (80-94); Monocyte# 0.99 X10^3/uL; Monocyte% 10.3 % (0-10); Neutrophil # 6.77 X10^3/uL (2.7-7.7); Neutrophil % 70.6 % (47-70); Platelet Count 291 K/mm3 (150-450); RBC Distribution Width CV 14.3 % (11.6-14.6); RBC Distribution Width SD 53.8 fl (35.1-43.9); Red Blood Count 4.14 M/mm3 (4.6-6.2); White Blood Count 9.6 K/mm3 (4.4-11.0)
[2018-03-28 16:47] LABS: POSITIVE COUNT NO; POSITIVE DIFFERENTIAL NO; POSITIVE MORPHOLOGY NO
[2018-03-28 17:09] LABS: Vitamin D,25 Hydroxy 25.6 ng/mL (29.95-100.01)
[2018-03-28 17:13] LABS: ALB/GLOB Ratio 1.2 RATIO (0.9-2.4); AST(SGOT) 15 U/L (15-37); Alanine Aminotransfer ALT/SGPT 31 U/L (16-61); Albumin, Serum 3.8 g/dL (3.2-5.0); Alkaline Phosphatase 86 U/L (45-117); Anion Gap 10 (5-15); BUN 20 mg/dL (7-18); BUN/Creat Ratio 15.9 RATIO (10-20); Calcium,Total 8.8 mg/dL (8.5-10.1); Chloride 110 mmol/L (98-107); Creatinine, Serum 1.26 mg/dL (0.70-1.30); EST Glomerular Filtration Rate 58 mL/min (>60); Est Glom Filt Rate - Afr Amer 70 mL/min (>60); Globulin 3.2 g/dL (2.2-4.2); Glucose 109 mg/dL (74-106); Potassium 3.7 mmol/L (3.5-5.1); Sodium Level 146 mmol/L (136-145); Thyroid Stim Hormone (TSH) 1.28 uIU/mL (0.358-3.74)
== END ==
PROVIDERS: Family Provider Family Medicine Geriatric Medicine; PCP Family Medicine Geriatric Medicine; Visit Provider Family Medicine Geriatric Medicine
DX: E55.9 Vitamin D deficiency, unspecified (principal); I10 Essential (primary) hypertension
CPT/HCPCS: 36415; 80053; 82306; 84443; 85025

== ENCOUNTER → 2018-04-10 13:10 | Outpatient (CLI) | payer MEDICARE, SELFPAY ==
--- NOTE | 2018-04-10 13:15 | SP.MBSS_ITS ---
PRIMARY / SECONDARY DIAGNOSIS: dysphagia (R13.12) REFERRING PHYSICIAN: Dr. Krissy Singh MD CURRENT DIET: mechanical soft textures, honey thickened liquids DENTITION: WFL MENTAL STATUS: appropriate for participation RESPIRATORY STATUS: O2 via room air PREVIOUS MODIFIED BARIUM SWALLOW STUDY: 02/28/2018 MBS revealed moderate to severe oropharyngeal dysphagia with SILENT aspiration of thin and nectar thickened liquids REASON FOR REFERRAL: Patient is an 82 year old male referred for a repeat modified barium swallow (MBS) study to objectively assess the Patients oropharyngeal swallow function under fluoroscopy secondary to moderate to severe oropharyngeal dysphagia with SILENT aspiration of thin and nectar thickened liquids under fluoroscopy secondary to an 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 The Patient reports occasional coughing (?every once in a while?) during PO intake along with occasional rhinorrhea though with no textures in particular, further reports occasional early satiety without changes in appetite or nausea; denes dysgeusia / ageusia, sialorrhea, odynophagia, globus sensation or substernal discomfort Mild dysarthria with continued mild left visuospatial neglect (noted during ambulation to the fluoroscopy suit) ADDITIONAL OBJECTIVE ASSESSMENT RESULTS: 03/02/2018 CT revealed a subacute right middle cerebral infarct; chronic involutional changes of the brain. 02/25/2018 MRI revealed an acute right middle cerebral artery infarct involving the right insula and rodríguez radiata. 02/25/2018 CXR revealed mild cardiomegaly; lungs are clear. 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 STUDY FINDINGS: Patient participated in a Modified Barium Swallow (MBS) study on 04/10/2018. Dr. Rodriguez was the radiologist present for this evaluation. This study was recorded in the lateral view and images were sent to PACs for storage. The following consistencies were presented to this patient for analysis of oropharyngeal swallow function: thin liquids, nectar thickened liquids, honey thickened liquids, pudding, and a regular textured, [employer] cookie. Results of the MBS are as follows: PENETRATION / ASPIRATION SCALE (CHRISTIANSON): 1 = does not enter airway 2 = enters airway/above vocal folds/ejected 3 = enters airway/above vocal folds/not ejected 4 = enters airway/contacts vocal folds/ejected 5 = enters airway/contacts vocal folds/not ejected 6 = enters airway/below vocal folds/ejected 7 = enters airway/below vocal folds/not ejected despite effort 8 = enters airway/below vocal folds/no effort PENETRATION / ASPIRATION SCALE (SCORE): Honey thickened liquids via cup (single sip): 1 Honey thickened liquids via cup (single sip): 1 Honey thickened liquids via cup (single sip): 1 [employer] thickened liquids via cup (single sip): 1 [employer] thickened liquids via cup (single sip): 1 [employer] [place] thickened liquids via cup (single sip): 1 Thin liquids via cup (single sip): 1 Thin liquids via cup (single sip): 2 Thin liquids via cup (single sip): 1 Thin liquids via straw (single sip): 1 Thin liquids via straw (single sip): 1 Thin liquids via straw (sequential swallows): 2 Pudding via spoon: 1 Regular textured cookie: 1 Thin liquids via straw (single sip): 1 Thin liquids via straw (single sip): 1 Thin liquids via straw (single sip): 2 Thin liquids via straw (single sip): 1 IMPRESSION: DIAGNOSIS: mild to moderate oropharyngeal dysphagia (R13.12) ORAL PHASE CHARACTERIZED BY: LABIAL SEAL: escape beyond interlabial space or lateral juncture; no extension beyond casimiro border TONGUE CONTROL DURING BOLUS MANIPULATION: posterior escape of greater than half of bolus BOLUS PREPARATION / MASTICATION: slow prolonged chewing/mashing with complete recollection BOLUS TRANSPORT / LINGUAL MOTION: slowed tongue motion with occasional repetitive / disorganized tongue motion; occasional (1-3 second) delayed initiation of tongue motion ORAL RESIDUE: residue collection on oral structures PHARYNGEAL PHASE CHARACTERIZED BY: INITIATION OF PHARYNGEAL SWALLOW: bolus head in valleculae at first hyoid excursion SOFT PALATE ELEVATION: no bolus between soft palate and pharyngeal wall LARYNGEAL ELEVATION: complete superior movement of thyroid cartilage with complete approximation of arytenoids cartilage to epiglottic petiole ANTERIOR HYOID EXCURSION: intermittent partial anterior movement EPIGLOTTIC MOVEMENT: complete epiglottic inversion LARYNGEAL VESTIBULE CLOSURE AT HEIGHT OF SWALLOW: complete laryngeal vestibule closure with no air/contrast in laryngeal vestibule PHARYNGEAL STRIPPING WAVE: pharyngeal stripping wave present / complete PHARYNGOESOPHAGEAL SEGMENT OPENING: complete distension and complete duration with no obstruction of flow TONGUE BASE RETRACTION: narrow column of contrast between tongue base and posterior pharyngeal wall PHARYNGEAL RESIDUE: collection of residue within or on pharyngeal structures ESOPHAGEAL PHASE CHARACTERIZED BY: ESOPHAGEAL BOLUS CLEARANCE IN THE UPRIGHT POSITION: intermittent esophageal retention along the upper 1/3rd of the esophagus during trials of more viscous textures without retrograde flow DIET TEXTURE RECOMMENDATIONS: Will recommend a mechanical soft textured, nectar thickened liquid diet pending follow up with the Patients features reporter. COMPENSATORY STRATEGIES RECOMMENDED: Reduced bolus volume, reduced rate of intake, liquid chaser at reasonable intervals, check for buccal pocketing at reasonable intervals, seated upright at 90 degrees during PO intake, remain upright for 30-60 minutes post meal (GERD precaution). 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 Oral preparatory phase marked by slowed albeit effective mastication; brief right sided anterior spillage during thin liquid trials not visualized under fluoroscopy (visualized by clinician). Oral transitional phase marked by slowed and often discoordinated bolus recollection and transportation with varied oral swallow onset timing (1 to 3 seconds; 4 seconds max); inconsistent oral clearance with diffuse collections of barium within the oral cavity post deglutition of pureed and regular textures; consistent premature posterior bolus loss during thin liquid trials occasionally resulting in brief / transient pre-prandial penetration. Pharyngeal phase marked by mild pharyngeal dysmotility attributed to reduced tongue based retraction with limited impact; improved closure of the airway during deglutition with sufficient laryngeal vestibule pressure generated to expel penetrated material; pharyngeal phase swallow onset typically within functional limits when compared to age matched peers (onset at the level of the valleculae) with the exception of 2 outliers. All deficits ameliorated with bolus volume adjustments. The above noted premature posterior bolus loss is likely the most significant contributing factor to the Patients increased risk of PO diet intolerance. Scattered areas of calcification located throughout the laryngeal vestibule at times complicating imaging, though able to elucidate between areas of calcification and barium upon review. Very brief transient penetration with ejection during thin liquid trials upon imaging review attributed to poor oral containment and subsequent posterior bolus loss. No aspiration appreciated throughout trials, unable to definitively rule out silent aspiration. RECOMMENDATIONS: Recommendations made for advancement to a nectar thickened liquid diet pending upcoming session and likely trials with the Patients features reporter through home health; would consider further advancement to thin liquids via clinical reassessment within 1-2 weeks if tolerating a nectar thickened liquid diet, though it should be conveyed that the above results did not demonstrate aspiration, and thus this study cannot definitively rule out silent aspiration. Advancement to soft / regular textures appropriate through informal clinical measures. Would consider biennial repeat modified barium swallow study based on the Patients history of laryngeal cancer status post irradiation, as post irradiation dysphagia can manifest years post irradiation. Recommend continued use of the incentive spirometer to improve sustained maximal inspiration and improved subglottic pressure during volitional and elicited cough response. Recommend an aggressive oral care program that includes pre-rinse use prior to water intake; routine oral care / denture care in the a.m., prior to oral intake, after oral intake, and prior to bed via toothbrush / swab / rinse; and frequent dental checkups. Patient requires intensive skilled speech-language intervention targeting continued diet texture management; training and implementation of recommended compensatory strategies; training and implementation of recommended oropharyngeal strengthening exercises to facilitate improved labial control / strength, lingual control / strength, laryngeal vestibule closure / pressure / duration, and pharyngeal motility; and Patient. / caregiver training targeting meal preparation / thickened liquid preparation if unable to advance to baseline diet textures prior to discharge. ADDITIONAL COMMENTS/RECOMMENDATIONS: Results and recommendations were discussed with the Patient immediately following MBS completion, with the Patient verbalizing understanding and agreement with all recommendations and education provided. IMAGE COUNT: [id number] G-CODES: SWALLOWING G8996 Current Status: CJ SWALLOWING G8997 Goal Status: CI SWALLOWING G8998 Discharge Status: TOI Torres M.A., CCC-FABRIC WORKER FITTER [facility] Speech-Language Pathology Department [email or web address]
--- NOTE | 2018-04-10 13:15 | RAD_ITS ---
STUDY: SWALLOWING STUDY REASON FOR EXAM: Male, 82 years old. TECHNIQUE: The examination was performed with Speech Pathology in attendance. Under fluoroscopic observation, the patient ingested thin barium, thick barium, barium pudding, and barium coated cracker. FLUOROSCOPY TIME: 3:17 minutes/seconds dysphasia.. 3086 spot images were obtained. RADIOLOGIST INVOLVEMENT: Radiologist was present and providing direct supervision. COMPARISON: Comparison is made with prior study dated February 28, 2018. FINDINGS: The following was observed during swallowing of the various mixtures of barium: Thin Barium: There was no evidence of aspiration or laryngeal penetration. Thick Barium: There was no evidence of aspiration or laryngeal penetration. Barium Pudding: There was no evidence of aspiration or laryngeal penetration. Barium Coated Cracker: There was no evidence of aspiration or laryngeal penetration. RAD/Swallowing Function w/Video IMPRESSION: Normal tailored barium swallow study. No evidence of increased risk for aspiration. The swallow study findings were discussed with the patient by the speech pathologist at the conclusion of the examination. Please see speech pathology report for more information and recommendations. Electronically Signed: Jalen Rodriguez MD at 13:56 EST Tel [phone], Service support ,
== END ==
PROVIDERS: Family Provider Family Medicine Geriatric Medicine; PCP Family Medicine Geriatric Medicine; Referring Provider Family Medicine Geriatric Medicine; Visit Provider Family Medicine Geriatric Medicine
DX: R13.10 Dysphagia, unspecified (principal)
CPT/HCPCS: 74230; 92611; G8996; G8997; G8998

== ENCOUNTER 2018-08-14 14:00 | Outpatient (RCR) | payer MEDICARE, SELFPAY ==
--- NOTE | 2018-05-09 13:50 | HP.PTEVAL ---
Patient's Visit Information JACKSON GRADY is a 82 year old M referred to Physical Therapy by Derek Singh with a diagnosis of CVA. Date of Evaluation: 05/09/18 Physical Therapist: Yareli Fallon - Visit Plan Frequency: 2x /Week Duration: 4 Weeks Plan: Focus on functional mobility and endurance- - Subjective Findings: CVA in early February and went to rehab. Was in [place] for 3 weeks then we went [place]. Lives in a 2 story home- with his daughter and son in law. Someone is always home with him. Bathroom/bedroom is all on one floor- 3 stairs to get into the house with a handrail. No problems getting in/out of the house. Uses a quad cane on/off in the house. Does not get out much but when he does he uses the cane (was carrying it when he came into OT/PT). Daughter and son in law moved into his house and have no plans to move back out. Has had no falls since the stroke. He has not exercises since the hospital due to the weather. His legs get tired when he walks long distances. The stroke effected his left side but feels that they are now equal. Has a fear of falling so he moves slow- and does not climb anymore due to fear of falling. No pain in the legs. Has had TKR in bilateral knees approx [address] Sam. Reports no memory loss since the stroke. Had home health therapy and then thought he was able to come to outpatient. Does not have nuropathy and does feel his feet. No concerns for safety at home. Goals for PT: get more stamina. Was driving before the CVA but is not currently driving. 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 Sleep: not disturbed. - Objective Posture: FH, RS, Increased kyphosis- can correct momentarily with verbal and tactile cueing but does not maintain. Gait: abnormal gait- uses a quad cane 75% of the time but does need to be verbally reminded to use the AD while ambulating for 300 feet. Step through gait pattern witht he right but does a step to gait pattern with unsteady foot placement on the left. Looks towards the floor for ambulation. Stairs: asc- 8 recip with 2 HR and uses significant UE A- CGA for both asc/desc. Desc: non recip turns to the right rail and places right foot down and follows with the left- decreased eccentric control- scared to fall would rather be safe. Balance: Eyes Open: 30 sec no LOB or increased sway, Eyes Closed: 30 sec mild increase in sway but did not require assist from PT to remain upright. Gait with head turns both horizontally and vertically was challenging and patient veered to the left. Tandem stance: able to obtain position with right foot but was unable to obtain with the left. SLS: unable but will take foot off the floor with hands on plinth/wall. Picking an object off the floor: CGA for safety uses right hand. HR/TR: standing able with UE A. ROM: WFL in all planes. Coordiation: foot tapping WNL together and alternating. Strength: Right: 5/5 throughout, Left: ankle: 5/5, Knee: 5/5 Hip: flexion: 4+/5, Abd: 5/5, Add: 5/5, Extn; 4+/5 Core: fair. Sit to Stand: uses UE A- rights himself before reaching for cane- slow to rise from chair - Goals Goal 1:: Patient will be I with HEP and progression Goal Time Frame: 4-6 Weeks Goal 2:: Patient will asc/desc 8 stairs recip with 1 HR independently Goal Time Frame: 4-6 Weeks Goal 3:: Patient will demo ability to pick something up off the floor with mod I and LRD Goal Time Frame: 4-6 Weeks Goal 4:: Patient will ambulate >300 feet with a normalized gait pattern and LRD Goal Time Frame: 4-6 Weeks - Rehabilitation Potential Physical Therapy Diagnosis: Patient presents with hypomobility-he has decreased muscular endurance and poor propioception in the left LE leading to abnormal gait and inability to perform ADL's safely with I. Rehabilitation Potential: Fair - Anticipated Interventions Patient/Client Instruction: Educate patient on: Benefits of Fitness Program Therapeutic Exercise to Include: Strength training, Endurance training, Balance training, Coordination, Body mechanics, Postural training, Flexibilty training, Gait and locomotor training, Passive ROM, Active ROM, Dynamic Lumbar Stabilization, Scapular Strength/Stabilization For the Purpose of:: To improve muscle performance and motor function Thank you for the opportunity to evaluate your patient. For Medicare and Medicare HMO plans, please review the plan of care and approve it. It will need to be FAXED BACK to us at [phone] for Medicare purposes. For Medicare only, by signing this I certify the plan of care. Please let me know if there are questions or concerns regarding this plan of care. Physician Signature: Date:
--- NOTE | 2018-05-09 18:16 | HP.OTEVAL_ITS ---
Patient's Visit Information JACKSON GRADY is a 82 year old M, referred to Occupational Therapy by Derek Singh, with a diagnosis of CVA. Date of Evaluation: 05/09/18 Occupational Therapist: Jolene York - Subjective Subjective: Kenny Porter?, arrived and noted that have CVA around 02/25/18. Noted he spent some time on Rehab Unit at [facility] post CVA. Explained L side is giving him fits and he is having increased difficulty completed B hand tasks. Explained self-care going ok and he is completing UB dressing well but LB dressing is difficult. Additionally, he noted that he is having trouble even forming fist with L hand and does have arthritis that he believes is also flared up. He noted that he lives with daughter and son-in law. Family has cat but they have adapted his house somewhat to help with mobility and self-care. Completed mobility with quad cane back to OT. SOB after walking 50 ft. Not safe with cane as holding it while walking and needed cues for use. - Pain Bilateral Hand 1 Pain Intensity Range: 0, 3 - ROM Shoulder: WFL- Decreased proprioception noted of L UE with ER as decreased Wrist: Flexion R 0-59, L 0-60; extension R 0-31, L 0-10 MP: R WFL; L 2nd 12-46, 3rd 0-40, 4th 0-35, 5th 0-43 PIP: R WFL; L 2nd 0-34, 3rd 0-56, 4th 0-85, 5th 32-54 ROM Comments: 10 cm from IF to palm to make composite fist. L hand very stiff, not warm to touch but some light edema noted. Pt. does note h/o arthritis in B hands. - Strength Shoulder: R 3+/5, L 3/5 Elbow: Flexion R 4-/5, L 3/5 extension R 4-/5, L 3/5 Pathology Manager: R 56, L unable- noted pain in L hand Lateral Pinch: R 13, L 2 Tripod Pinch: R 15, L 2 lbs Tip-to-Tip Pinch: R 12 , L unable Strength Comments: decreased awareness of L UE when vision is occluded w/ hand overhead. Increased weakness noted on L side with empty can test. Crepitus with movement but Pt. noted no pain. - Edema PIP: IF R 7.5, L 7.4 cm Proximal Phalanx: IF R 7.4, L 7.8 cm - Sensation Thumb: R 3.84, L 3.84 Index: R 3.84, L 4.08 Middle: R 3.84, L 4.08 Ring: R 3.84, L 4.08 Little: R 3.84, L 4.08 Stereognosis: Normal - Right, Abnormal - Left Kinesthesia: Abnormal - Right, Abnormal - Left Proprioception: Normal - Right, Abnormal - Left Sensation Comments: Decreased sensory awareness of L UE and hand with and without vision. Pripriopective impairments noted with reaching over head. - Cognitive Skills Follows Directions: Yes - 1-2 steps only Cognitive Comments: Will be completing further cognitive testing as increased difficulty noted when Pt. attempts motor planning. He additionally seems to perseverate on items once getting increasingly fatigued. The needed multiple redirections as having increased difficulty and worried about time he would be able to come to therapy. Able to redirect and move to PT session and continually explained during time with Pt. that he would be able to pick the time that best suits his schedule. He does have ST evaluation set up for end april. - Attention Attention: Normal - Balance Static Sitting: G Dynamic Sitting: G-/F+ - Transfers Transfers: Pt. completed transfers with mod I. Safety concerns noted with hand placement as well as cane placement. He does attempt to use cane for STS but does not use during fx mobility and carries. Cognitive concerns noted. Family not present for evaluation to determine if baseline or CVA related. - Nine Hole Peg Comments: Did not attempt as Pt. 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 Goal:: Kenny to increase L hand ROM with ability to form composite fist of L hand 100% of the time to promote increased ability to complete ADL/IALDs by d/c. Goal:: Kenny to be able to complete functional pinch patterns as well as 9 hole pegboard test below 1 minute with L hand to promote increased FMC and dexterity needed to complete self care and promote QOL by d/c. Goal:: Kenny to be mod I to complete B LE dressing with compensations and adaptions as needed 4/5 trials 80% of the time to promote increased (I) and QOL by d/c. Kenny to be mod I to complete clothing fasteners of buttons, zippers, and tying shoes to promote B hand control, finger dexterity, as well as cognitive sequencing 4/5 trials 80% of the time to promote QOL by d/c. Goal:: Kenny to complete 2-3x step commands to promote increased awareness and completion of self care tasks from start to follow through 4/5 trials 80% of the time by d/c. Goal:: Kenny to be mod I to complete B UE HEP to promote increased ROM and strength of L UE needed to promote returning to PLOF by d/c. Goal:: Kenny to be mod I to complete proper placement and use of a/d for kitchen mobility and IALD related tasks to promote increased ability to complete self- care and IADLs safely to return to PLOF by d/c. - Rehabilitation General Assessment: Kenny arrived for OT evaluation on this date of 05/09/18. He exhibits some increased sensory deficits, ROM, and strength limitations of L UE post CVA. Kenny lives with daughter and son in law. He has accessible set up at home with handrails and grab bars around commode and chair and grab bars in and around standard tub shower. Rehabilitation Potential: Good - Anticipated Interventions Anticipated Interventions: A/AAROM/PROM, Strengthening, Edema Control, Sensory Retraining, Modalities, Orthoses, Joint Protection/Energy Conservation, Ergonomic Education, Fine Motor Coord/Raad, ADL Training, Education re assistive Equipment, Caregiver Training, Home Program - Visit Plan Frequency: 2x /Week Duration: 4 Weeks General Plan: OT to see Kenny to promote returning to PLOF with increased ROM, PRE strengthening program, education and use of a/e and compensations as needed, and increase safety awareness with ADL/IALDs by d/c. TEXT: Thank you for the opportunity to evaluate your patient. For Medicare and Medicare HMO plans, please review the plan of care and approve it. It will need to be FAXED BACK to us at [phone] for Medicare purposes. Please let me know if there are questions or concerns regarding this plan of care. Physician Si gnature: Date:
--- NOTE | 2018-06-03 15:18 | OTREVAL_ITS ---
Derek Singh MD, It has been my pleasure to treat JACKSON GRADY over the last 8 visits for CVA. Please see the progress note below for an update on the occupational therapy plan of care! Subjective: Arrived and noted that wrist is stiff and sore but that feels it is getting better. Notes feels about 55-60% back. Objective/Function: Completed reassessment on this date of 06/03/18. Measurements are as follows: ROM. Wrist: - Flexion R WFL, L 0-51. - Extension R WFL, L 0-12; passively he is able to get from 12 to 30 degrees of L wrist extension. Hand. MCP from 2nd- 5th digits. R WFL, L 0-50, 0-57, 0-60, 0-51. PIP. R WFL, L 0-80, 0-90, 0-94, 0-71. DIP. R WFL, L 0-27, 0-63, 0-54, 0-49. He is progressing towards ability to make full composite fist. He is about one inch from palm to IF other fingers are able to reach palm. Sensation with use of monofilament test: R 1st - 5th digits. 3.22. 2.83. 3.84. 3.22. 2.83. L 1st-5th. 3.84. 4.08. 3.84. 3.22. 4.08. Strength: Consulting Database Administrator R 58, L 7. Lateral R 16, L 2. Tripod R 13, L 5. pincer R 15, L 4. 9 hole pegboard test: R 32.30 seconds able to complete all 9 in and then immediately all 9 out. L 5 mins 51/31 seconds. Able to complete putting in only of all 9 pegs. Used lateral rather than pincer as compensation for decreased dexterity post stroke. Plan Frequency: 2x /Week Duration: 6 Weeks Visits in this POC: total 20 appointments including previous 8 completed. Plan: continue POC for 2x weekly appointment for the next 6 weeks. He will try scheduling hour appointments to promote continued ROM , strengthening , and functional use of L hand to return to PLOF. Goals - Goals Goal:: Kenny to increased L hand sourcing intern with 10-20 lbs of R hand to promote increased ability to complete b hand control tasks needed fro self-care and IADLs by d/c. Goal:: Kenny to increase L hand ROM with ability to form composite fist of L hand 100% of the time to promote increased ability to complete ADL/IALDs by d/c. Goal:: Kenny to be able to complete functional pinch patterns as well as 9 hole pegboard test below 1 minute with L hand to promote increased FMC and dexterity needed to complete self care and promote QOL by d/c. Goal:: Kenny to be mod I to complete B LE dressing with compensations and adaption s as needed 4/5 trials 80% of the time to promote increased (I) and QOL by d/c. Kenny to be mod I to complete clothing fasteners of buttons, zippers, and tying shoes to promote B hand control, finger dexterity, as well as cognitive sequencing 4/5 trials 80% of the time to promote QOL by d/c. Goal:: Kenny to complete 2-3x step commands to promote increased awareness and completion of self care tasks from start to follow through 4/5 trials 80% of the time by d/c. Goal:: Kenny to be mod I to complete B UE HEP to promote increased ROM and strength of L UE needed to promote returning to PLOF by d/c. Goal:: Kenny to be mod I to complete proper placement and use of a/d for kitchen mobility and IALD related tasks to promote increased ability to complete self- care and IADLs safely to return to PLOF by d/c. Anticipated Interventions Anticipated Interventions: A/AAROM/PROM, Strengthening, Edema Control, Sensory Retraining, Modalities, Orthoses, Joint Protection/Energy Conservation, Ergonomic Education, Fine Motor Coord/Raad, ADL Training, Education re assistive Equipment, Caregiver Training, Home Program Please do not hesitate to contact me at [phone] by phone or if you have questions or concerns regarding this new plan of care! Sincerely, Jolene York
--- NOTE | 2018-06-06 15:45 | HP.PTREVAL_ITS ---
Derek Singh MD, It has been my pleasure to treat JACKSON GRADY over the last 9 visits for CVA. Please see the progress note below for an update on the physical therapy plan of care! Subjective: Feels that he is getting stronger and his balance is getting better. No falls at home. Slow with stairs but he can go up/down with no difficulty but is using a hand rail. Does have 3-4 stairs at home that he is able to navigate. Uses his cane a little in the house but has been walking without in the house more- but always takes it when he goes out. Wants to get back to a single point cane. Objective/Function: Posture: FH, RS, Increased kyphosis- can correct momentarily with verbal cueing but does not maintain. Gait: abnormal gait- uses a quad cane 50% of the time but does need to be verbally reminded to use the AD while ambulating for 300 feet. Step through gait pattern witht he right but does a step to gait pattern with unsteady foot placement on the left. Looks straight forwards. Stairs: asc- 8 recip with 1 HR and uses significant UE A- supervision for both asc/desc. Desc: forwards recip Balance: Eyes Open: 30 sec no LOB or increased sway, Eyes Closed: 30 sec mild increase in sway but did not require assist from PT to remain upright. Gait with head turns both horizontally and vertically was challenging and patient veered to the left. Tandem stance: able to obtain position with right foot but was unable to obtain with the left. SLS: unable but will take foot off the floor with hands on plin th/wall. Picking an object off the floor: sba for safety uses right hand. HR/TR: standing able with UE A. ROM: WFL in all planes. Coordiation: foot tapping WNL together and alternating. Strength: Right: 5/5 throughout, Left: ankle: 5/5, Knee: 5/5 Hip: flexion: 4+/5, Abd: 5/5, Add: 5/5, Extn; 4+/5 Core: fair. Sit to Stand: uses UE A- rights himself before reaching for cane. Plan Plan: Cont 2x a week for 4 weeks Goals Goal 1:: Patient will be I with HEP and progression Goal Time Frame: 4-6 Weeks Goal Progress: Progressing Goal 2:: Patient will asc/desc 8 stairs recip with 1 HR independently Goal Time Frame: 4-6 Weeks Goal Progress: Progressing Goal 3:: Patient will demo ability to pick something up off the floor with mod I and LRD Goal Time Frame: 4-6 Weeks Goal Progress: Progressing Goal 4:: Patient will ambulate >300 feet with a normalized gait pattern and LRD Goal Time Frame: 4-6 Weeks Goal Progress: Progressing Anticipated Interventions Patient/Client Instruction: Educate patient on: Benefits of Fitness Program Therapeutic Exercise to Include: Strength training, Endurance training, Balance training, Coordination, Body mechanics, Postural training, Flexibilty training, Gait and locomotor training, Passive ROM, Active ROM, Dynamic Lumbar Stabilization, Scapular Strength/Stabilization For the Purpose of:: To improve muscle performance and motor function Please do not hesitate to contact me at [phone] by phone or if you have questions or concerns regarding this new plan of care! Sincerely, Yareli Fallon DPT
--- NOTE | 2018-07-01 12:06 | HP.OTCOM_ITS ---
OT Communication Note 07/01/[address] Derek Singh MD Completed new measurements and are as follows on this date of 07/01/18: Strength: workforce investment act career manager R 62, L 12 lateral R 14, L 6 three jaw R 16, L 7- increased compensations noted due to decreased dexterity pincer R 16, L 5 Sensory testing with monofilament: R 2nd 3.84, 3rd 3.84, 4th 2.83 , 5th 2.83, thumb 3.84 L 2nd 3.22, 3rd 3.84, 4th 3.22, 5th 3.22, thumb 3.22 9 hole pegboard test: R 28.66 seconds L 54.50 seconds He is able to make full composite fist at this time. Kenny has progressed in all measurements and remains very motivated to continue therapy and 'get better'. Therapy will continue with current plan of care. Sincerely, Jolene York, OTR/L Contact Information
--- NOTE | 2018-07-03 16:04 | HP.PTDCSUM ---
HP - PT D/C Summary It has been my pleasure to treat JACKSON GRADY under orders from Derek Singh MD, for the diagnosis of CVA for a total of 17 visit(s). Discharge Date: Please see the following information for a summary of their discharge status. - Subjective Subjective: No pain this deate - Pain bilat hands Pain Intensity (Out of 10): Unrated - Overall Improvement % Improvement: 80 - Objective Objective/Function: Pt is I with HEP. Pt is able to ascend/descend 10 stairs with R UE and no AD without difficulty. Pt ambulated 340 feet with std cane without difficulty. Pt can pick an object off the floor without difficulty. Rx goals achieved - Goals Goal 1:: Patient will be I with HEP and progression Goal Progress: Goal Met Goal 2:: Patient will asc/desc 8 stairs recip with 1 HR independently Goal Progress: Goal Met Goal 3:: Patient will demo ability to pick something up off the floor with mod I and LRD Goal Progress: Goal Met Goal 4:: Patient will ambulate >300 feet with a normalized gait pattern and LRD Goal Progress: Goal Met - Plan Plan: Discharge - D/C Information If there are questions or concerns regarding this patient's physical therapy, please feel free to call me at [phone]. Thank you for the referral of this patient. Sincerely, Mikael Payne, PT, ATC
--- NOTE | 2018-07-10 15:03 | OTREVAL_ITS ---
Derek Singh MD, It has been my pleasure to treat JACKSON GRADY over the last 19 visits for CVA. Please see the progress note below for an update on the occupational therapy plan of care! Subjective: Arrived and noted he feel left hand and arm feels is about 50% back and in general feels 80% back from CVA. He notes pain in hand has subsided and he feels much stronger but noted still need more fine motor in regards to his left hand. Objective/Function: Completed reassessment on this date of 07/10/18 and results are as follows: Kenny is able to form full composite fist at this time. Strength: Wetlands Conservation Laborer R 65, L 10 lbs. Lateral R 16, L 6 lbs. three jaw R 17, L 8 lbs. pincer R 17, L 6 lbs. Sensation testing with monofilament test: R hand: 2nd 3.84, 3rd 4.08 , 4th 3.61, 5th 3.61 , thumb 4.08. L hand: 2nd 3.22, 3rd 3.61, 4th 3.61, 5th 3.61, thumb 3.61. 9 hole pegboard test for finger dexterity testing: R 24.65 s. L 51.62 s. Kenny has pregressed in all measurements that were complete two weeks ago on 07/01/18. He will continue with OT at this time. Plan Frequency: 1-2x /Week Duration: 4 Weeks Visits in this POC: total 26 appointments including previous completed Plan: continue POC for 2x for next 2 weeks then dropping to 1x weekly for following two weeks. He has progressed in all measurements from start of OT and continues to progress from therapy measurements two weeks ago. OT starting to focus on intrinsic strengthening and sensory related tasks for Left hand as well as FMC related concerns of continued training on fasteners. Goals - Goals Goal:: Kenny to increased L hand cell stripper with 10-20 lbs of R hand to promote increased ability to complete b hand control tasks needed fro self-care and IADLs by d/c. Goal:: Kenny to increase L hand ROM with ability to form composite fist of L hand 100% of the time to promote increased ability to complete ADL/IALDs by d/c. Goal:: Kenny to be able to complete functional pinch patterns as well as 9 hole pegboard test below 1 minute with L hand to promote increased FMC and dexterity needed to complete self care and promote QOL by d/c. Goal:: Kenny to be mod I to complete B LE dressing with compensations and adaptions as needed 4/5 trials 80% of the time to promote increased (I) and QOL by d/c. Kenny to be mod I to complete clothing fasteners of buttons, zippers, and tying shoes to promote B hand control, finger dexterity, as well as cognitive sequencing 4/5 trials 80% of the time to promote QOL by d/c. Goal:: Kenny to complete 2-3x step commands to promote increased awareness and completion of self care tasks from start to follow through 4/5 trials 80% of the time by d/c. Goal:: Kenny to be mod I to complete B UE HEP to promote increased ROM and strength of L UE needed to promote returning to PLOF by d/c. Goal:: Kenny to be mod I to complete proper placement and use of a/d for kitchen mobility and IALD related tasks to promote increased ability to complete self- care and IADLs safely to return to PLOF by d/c. Anticipated Interventions Anticipated Interventions: A/AAROM/PROM, Strengthening, Edema Control, Sensory Retraining, Modalities, Orthoses, Joint Protection/Energy Conservation, Ergonomic Education, Fine Motor Coord/Raad, ADL Training, Education re assistive Equipment, Caregiver Training, Home Program Please do not hesitate to contact me at [phone] by phone or if you have questions or concerns regarding this new plan of care! Sincerely, Jolene York
--- NOTE | 2018-08-14 14:58 | HP.OTDCSUM_ITS ---
HP - OT D/C Summary It has been my pleasure to treat JACKSON GRADY under orders from Derek Singh MD, for the diagnosis of CVA for a total of 25 visit(s). Please see the following information for a summary of their discharge status. - Overall Improvement % Improvement: 90 - Objective Objective/Function: Measurements taken today of 08/14/18 are as follows: ROM. Wrist flexion R 0-70, L 0-62. Wrist extension R 0-40, L 0-27. Financial Aid Advisor R 54, L 19 lbs. Lateral Pinch R 16, L 9 lbs. Three Jaw R 18, L 12 lbs. Pincer R 16, L 8 lbs. 9 hole pegboard test: R 37.23 s. L 46.93 s. Sensation with monofilament testing: R 2nd 3.22 ,3rd 3.84 ,4th 3.22 ,5th 3.22 ,thumb 2.83. L 2nd 3.84,3rd 2,83 ,4th 3.22 ,5th 3.61 ,thumb 3.22. He has progressed and meant most goals for L UE and hand. - Goals Patient Goals: Regain Mobility, Regain Strength, Decrease Swelling/Stiffness, Improve Fine Motor Skills, Use Hand/Wrist/Arm Normally Again, Decrease Tingling/Numbness, Increase ROM, Be More Independent in ADLS, Improve Transfer Skills, Resume Former Household Responsibilities (Cooking,Cleaning,Yard, etc.), Resume Hobbies Goal:: Kenny to increased L hand graphic editor with 10-20 lbs of R hand to promote increased ability to complete b hand control tasks needed fro self-care and IADLs by d/c. Goal:: Kenny to increase L hand ROM with ability to form composite fist of L hand 100% of the time to promote increased ability to complete ADL/IALDs by d/c. Goal:: Kenny to be able to complete functional pinch patterns as well as 9 hole pegboard test below 1 minute with L hand to promote increased FMC and dexterity needed to complete self care and promote QOL by d/c. Goal:: Kenny to be mod I to complete B LE dressing with compensations and adaptions as needed 4/5 trials 80% of the time to promote increased (I) and QOL by d/c. Kenny to be mod I to complete clothing fasteners of buttons, zippers, and tying shoes to promote B hand control, finger dexterity, as well as cognitive sequencing 4/5 trials 80% of the time to promote QOL by d/c. Goal:: Kenny to complete 2-3x step commands to promote increased awareness and completion of self care tasks from start to follow through 4/5 trials 80% of the time by d/c. Goal:: Kenny to be mod I to complete B UE HEP to promote increased ROM and strength of L UE needed to promote returning to PLOF by d/c. Goal:: Kenny to be mod I to complete proper placement and use of a/d for kitchen mobility and IALD related tasks to promote increased ability to complete self- care and IADLs safely to return to PLOF by d/c. - Plan Plan: Kenny has progressed over the course of therapy. 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 He is to call with questions or concerns and continue HEP set up over the course of therapy to continue to progress. Ot has recommended silver sneakers or health and wellness program with [employer] to continue to work on strengthening, endurance, and general progression towards goals. He otherwise is back to PLOF. - D/C Information If there are questions or concerns regarding this patient's occupational therapy, please fell free to call me at [phone]. Thank you for the referral of this patient. Sincerely, Jolene York
--- NOTE | 2018-08-14 14:58 | HP.OT.NRP ---
HP - Discharge Summary - Patient Information JACKSON GRADY was seen in my office for initial evaluation on 05/09/18. The following Plan of Care was established for this patient: Initial Frequency: 1-2x /Week Initial Duration: 4 Weeks Plan: Kenny has progressed over the course of therapy. 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 He is to michelle with questions or concerns and continue HEP set up over the course of therapy to continue to progress. Ot has reccommended silver sneakers to continue to work on strengthening, endurance, and general progression towards PLOF. - Anticipated Interventions Anticipated Interventions: A/AAROM/PROM, Strengthening, Edema Control, Sensory Retraining, Modalities, Orthoses, Joint Protection/Energy Conservation, Ergonomic Education, Fine Motor Coord/Raad, ADL Training, Education re assistive Equipment, Caregiver Training, Home Program This patient was last seen in our office . Pertinent comments regarding their Occupational therapy will appear below: At this point I will be discontinuing this patient from occupational therapy. I would be happy to see this patient again in the future if found appropriate by the physician. Thank you! Jolene York
== END 2018-08-14 19:00 | disposition home or self-care (01) ==
LOC: OT 14:00
PROVIDERS: Family Provider Family Medicine Geriatric Medicine; PCP Family Medicine Geriatric Medicine; Referring Provider Family Medicine Geriatric Medicine; Visit Provider Family Medicine Geriatric Medicine
DX: R53.83 Other fatigue (principal)
CPT/HCPCS: 97110; 97112; 97140; 97162; 97164; 97166; 97168; 97530

== ENCOUNTER → 2018-08-16 09:40 | Outpatient (CLI) | payer MEDICARE, SELFPAY ==
[2018-08-16 10:48] LABS: AST(SGOT) 14 U/L (15-37); Alanine Aminotransfer ALT/SGPT 18 U/L (16-61); Albumin, Serum 3.6 g/dL (3.2-5.0); Alkaline Phosphatase 73 U/L (45-117); Cholesterol 98 mg/dL (200); Globulin 2.9 g/dL (2.2-4.2); High Density Lipoprotein 46 mg/dL; Protein, Total 6.5 g/dL (6.4-8.2); Triglycerides 97 mg/dL; Very Low Density Lipoprotein 19 mg/dL (5-40)
== END ==
PROVIDERS: Family Provider Family Medicine Geriatric Medicine; PCP Family Medicine Geriatric Medicine; Referring Provider Internal Medicine Cardiovascular Disease; Visit Provider Internal Medicine Cardiovascular Disease
DX: E78.5 Hyperlipidemia, unspecified (principal); Z79.899 Other long term (current) drug therapy
CPT/HCPCS: 36415; 80061; 80076

== ENCOUNTER → 2018-10-01 13:14 | Outpatient (CLI) | payer MEDICARE, SELFPAY ==
[2018-08-20 11:17] VITALS: BMI 28.5
--- NOTE | 2018-10-01 13:30 | RAD_ITS ---
STUDY: X-RAY CHEST REASON FOR EXAM: Male, 83 years old. Cough. TECHNIQUE: PA and lateral chest. COMPARISON: March 04, 2018. FINDINGS: The lungs are clear and expanded. There is no demonstrated pleural abnormality. Normal size heart. Normal mediastinum and binu. Normal visualized pulmonary arteries. Normal visualized aortic arch and descending thoracic aorta. Prominent anterior marginal osteophyte in the lower thoracic spine unchanged. Normal visualized ribs, clavicles, and shoulders. There is no demonstrated abnormality of the visualized soft tissue structures of the upper abdomen. RAD/Chest PA and Lateral IMPRESSION: No acute cardiopulmonary disease. Electronically Signed: Juan M Flores MD at 6:08 EDT , Service support ,
[2018-10-01 17:36] LABS: Absolute Lymphocyte Count 1.72 X10^3/ul (0.83-4.51); Absolute Neutrophil Count 3.2 X10^3/uL (2.0-7.7); Basophil# 0.01 X10^3/uL; Basophil% 0.2 % (0-1); Eosinophil# 0.78 X10^3/uL; Eosinophils% 12.1 % (0-5); Hematocrit 41.9 % (40-54); Hemoglobin 13.4 g/dl (13.0-16.5); Lymphocyte # 1.72 X10^3/ul (4.0); Lymphocyte % 26.7 % (19-41); Mean Corpuscular Hgb 32.9 pg (27.0-32.0); Mean Corpuscular Volume 102.9 fL (80-94); Mean Platelet Vol. 10.5 fl (6.2-12.0); Monocyte# 0.68 X10^3/uL; Monocyte% 10.5 % (0-10); Neutrophil # 3.24 X10^3/uL (2.7-7.7); Neutrophil % 50.2 % (47-70); POSITIVE COUNT NO; POSITIVE DIFFERENTIAL NO; POSITIVE MORPHOLOGY NO; Platelet Count 199 K/mm3 (150-450); RBC Distribution Width CV 14.4 % (11.6-14.6); RBC Distribution Width SD 52.9 fl (35.1-43.9); Red Blood Count 4.07 M/mm3 (4.6-6.2); White Blood Count 6.5 K/mm3 (4.4-11.0)
[2018-10-01 17:53] LABS: Vitamin D,25 Hydroxy 17.4 ng/mL (29.95-100.01)
[2018-10-01 18:15] LABS: ALB/GLOB Ratio 1.2 RATIO (0.9-2.4); AST(SGOT) 16 U/L (15-37); Alanine Aminotransfer ALT/SGPT 19 U/L (16-61); Albumin, Serum 3.6 g/dL (3.2-5.0); Alkaline Phosphatase 84 U/L (45-117); Anion Gap 7 (5-15); BUN 17 mg/dL (7-18); BUN/Creat Ratio 15.2 RATIO (10-20); Calcium,Total 8.6 mg/dL (8.5-10.1); Chloride 110 mmol/L (98-107); Creatinine, Serum 1.12 mg/dL (0.70-1.30); EST Glomerular Filtration Rate 66 mL/min (>60); Est Glom Filt Rate - Afr Amer 80 mL/min (>60); Globulin 3.1 g/dL (2.2-4.2); Glucose 92 mg/dL (74-106); Potassium 4.4 mmol/L (3.5-5.1); Protein, Total 6.7 g/dL (6.4-8.2); Sodium Level 142 mmol/L (136-145); Thyroid Stim Hormone (TSH) 3.13 uIU/mL (0.358-3.74)
== END ==
PROVIDERS: Family Provider Family Medicine Geriatric Medicine; PCP Family Medicine Geriatric Medicine; Referring Provider Family Medicine Geriatric Medicine; Visit Provider Family Medicine Geriatric Medicine
DX: J40 Bronchitis, not specified as acute or chronic (principal); E55.9 Vitamin D deficiency, unspecified; I10 Essential (primary) hypertension
CPT/HCPCS: 36415; 71046; 80053; 82306; 84443; 85025

== ENCOUNTER → 2018-10-23 15:24 | Outpatient (CLI) | payer MEDICARE, SELFPAY ==
[2018-08-20 11:17] VITALS: BMI 28.5
[2018-10-23 17:50] LABS: Absolute Lymphocyte Count 1.45 X10^3/ul (0.83-4.51); Absolute Neutrophil Count 3.5 X10^3/uL (2.0-7.7); Basophil# 0.01 X10^3/uL; Basophil% 0.2 % (0-1); Eosinophil# 0.72 X10^3/uL; Eosinophils% 11.4 % (0-5); Hematocrit 43.3 % (40-54); Hemoglobin 13.9 g/dl (13.0-16.5); Lymphocyte # 1.45 X10^3/ul (4.0); Mean Corp Hgb Conc 32.1 g/gl (32-36); Mean Corpuscular Hgb 32.6 pg (27.0-32.0); Mean Corpuscular Volume 101.4 fL (80-94); Mean Platelet Vol. 10.4 fl (6.2-12.0); Monocyte# 0.59 X10^3/uL; Monocyte% 9.4 % (0-10); Neutrophil # 3.53 X10^3/uL (2.7-7.7); Platelet Count 237 K/mm3 (150-450); RBC Distribution Width SD 51.4 fl (35.1-43.9); Red Blood Count 4.27 M/mm3 (4.6-6.2); White Blood Count 6.3 K/mm3 (4.4-11.0)
[2018-10-23 17:58] LABS: POSITIVE COUNT NO; POSITIVE DIFFERENTIAL NO; POSITIVE MORPHOLOGY NO
[2018-10-23 18:01] LABS: ALB/GLOB Ratio 1.1 RATIO (0.9-2.4); AST(SGOT) 14 U/L (15-37); Alanine Aminotransfer ALT/SGPT 21 U/L (16-61); Albumin, Serum 3.5 g/dL (3.2-5.0); Alkaline Phosphatase 73 U/L (45-117); Anion Gap 7 (5-15); BUN 15 mg/dL (7-18); BUN/Creat Ratio 13.8 RATIO (10-20); Calcium,Total 8.9 mg/dL (8.5-10.1); Chloride 109 mmol/L (98-107); Creatinine, Serum 1.09 mg/dL (0.70-1.30); EST Glomerular Filtration Rate 69 mL/min (>60); Est Glom Filt Rate - Afr Amer 83 mL/min (>60); Globulin 3.2 g/dL (2.2-4.2); Glucose 78 mg/dL (74-106); Potassium 4.3 mmol/L (3.5-5.1); Protein, Total 6.7 g/dL (6.4-8.2); Sodium Level 142 mmol/L (136-145); Thyroid Stim Hormone (TSH) 1.71 uIU/mL (0.358-3.74)
== END ==
PROVIDERS: Family Provider Family Medicine Geriatric Medicine; PCP Family Medicine Geriatric Medicine; Visit Provider Family Medicine Geriatric Medicine
DX: R53.83 Other fatigue (principal)
CPT/HCPCS: 36415; 80053; 84443; 85025

== ENCOUNTER → 2019-03-31 13:22 | Outpatient (CLI) | payer MEDICARE, SELFPAY ==
[2018-08-20 11:17] VITALS: BMI 28.5
--- NOTE | 2019-03-31 14:40 | RAD_ITS ---
STUDY: X-RAY - RIGHT WRIST REASON FOR EXAM: Pain and numbness in fingers, fall 2 weeks ago. TECHNIQUE: 3 view(s) of the wrist were obtained. COMPARISON: None. FINDINGS: Normal visualized distal radius and ulna. Normal radiocarpal articulation. Normal distal radioulnar articulation. Normal carpal bones. Normal carpal articulations. There are marginal osteophytes and joint space narrowing of the carpometacarpal articulation of the thumb. Normal second through fifth carpometacarpal articulations. Normal visualized metacarpal bones. There is vascular calcification. RAD/Wrist min 3 Views IMPRESSION: Arthrosis of the first carpometacarpal joint. No demonstrated fracture. Electronically Signed: Rusty Hedrick MD at 15:10 EST Tel , Service support ,
[2019-03-31 17:47] LABS: Absolute Lymphocyte Count 1.27 X10^3/uL (0.83-4.51); Basophil# 0.04 X10^3/uL; Basophil% 0.6 % (0-1); Eosinophils% 7.8 % (0-5); Hematocrit 42.5 % (40-54); Hemoglobin 13.5 g/dL (13.0-16.5); Lymphocyte # 1.27 X10^3/ul (4.0); Lymphocyte % 19.8 % (19-41); Mean Corp Hgb Conc 31.8 g/dL (32-36); Mean Corpuscular Hgb 33.9 pg (27.0-32.0); Mean Corpuscular Volume 106.8 fL (80-94); Mean Platelet Vol. 10.2 fl (6.2-12.0); Monocyte# 0.58 X10^3/uL; NRBC Flagged by Analyzer 0 % (0-5); Neutrophil # 4.01 X10^3/uL (2.7-7.7); Neutrophil % 62.3 % (47-70); Platelet Count 242 K/mm3 (150-450); RBC Distribution Width CV 13.7 % (11.6-14.6); RBC Distribution Width SD 54.5 fl (35.1-43.9); Red Blood Count 3.98 M/mm3 (4.6-6.2); White Blood Count 6.4 K/mm3 (4.4-11.0)
[2019-03-31 18:19] LABS: ALB/GLOB Ratio 1.3 RATIO (0.9-2.4); AST(SGOT) 12 U/L (15-37); Alanine Aminotransfer ALT/SGPT 23 U/L (16-61); Albumin, Serum 3.9 g/dL (3.2-5.0); Alkaline Phosphatase 68 U/L (45-117); Anion Gap 4 (5-15); BUN 25 mg/dL (7-18); BUN/Creat Ratio 23.4 RATIO (10-20); Calcium,Total 9.2 mg/dL (8.5-10.1); Chloride 112 mmol/L (98-107); Creatinine, Serum 1.07 mg/dL (0.70-1.30); EST Glomerular Filtration Rate 70 mL/min (>60); Est Glom Filt Rate - Afr Amer 85 mL/min (>60); Globulin 3.1 g/dL (2.2-4.2); Glucose 109 mg/dL (74-106); Potassium 4.3 mmol/L (3.5-5.1); Sodium Level 143 mmol/L (136-145); Thyroid Stim Hormone (TSH) 1.73 uIU/mL (0.358-3.74)
[2019-03-31 18:20] LABS: Vitamin D,25 Hydroxy 23.4 ng/mL (29.95-100.01)
== END ==
PROVIDERS: Family Provider Family Medicine Geriatric Medicine; PCP Family Medicine Geriatric Medicine; Referring Provider Family Medicine Geriatric Medicine; Visit Provider Family Medicine Geriatric Medicine
DX: I10 Essential (primary) hypertension (principal); E55.9 Vitamin D deficiency, unspecified
CPT/HCPCS: 36415; 73110; 80053; 82306; 84443; 85025

== ENCOUNTER → 2019-08-15 09:21 | Outpatient (CLI) | payer MEDICARE, SELFPAY ==
[2018-08-20 11:17] VITALS: BMI 28.5
[2019-08-15 10:50] LABS: AST(SGOT) 17 U/L (15-37); Alanine Aminotransfer ALT/SGPT 23 U/L (16-61); Albumin, Serum 3.3 g/dL (3.2-5.0); Alkaline Phosphatase 135 U/L (45-117); Bilirubin, Direct 0.16 mg/dL (0.00-0.30); Cholesterol 106 mg/dL (200); Globulin 3.1 g/dL (2.2-4.2); High Density Lipoprotein 49 mg/dL; Protein, Total 6.4 g/dL (6.4-8.2); Triglycerides 83 mg/dL; Very Low Density Lipoprotein 17 mg/dL (5-40)
== END ==
PROVIDERS: PCP Family Medicine Geriatric Medicine; Referring Provider Internal Medicine Cardiovascular Disease; Visit Provider Internal Medicine Cardiovascular Disease
DX: E78.00 Pure hypercholesterolemia, unspecified (principal); E78.5 Hyperlipidemia, unspecified
CPT/HCPCS: 36415; 80061; 80076

== ENCOUNTER → 2019-10-07 14:20 | Outpatient (CLI) | payer MEDICARE, SELFPAY ==
[2019-08-19 11:00] VITALS: BMI 22.8
[2019-10-07 14:57] LABS: Absolute Lymphocyte Count 1.04 X10^3/uL (0.83-4.51); Absolute Neutrophil Count 3.9 X10^3/uL (2.0-7.7); Basophil# 0.03 X10^3/uL; Basophil% 0.5 % (0-1); Eosinophil# 0.59 X10^3/uL; Eosinophils% 9.6 % (0-5); Hematocrit 38.2 % (40-54); Hemoglobin 12.2 g/dL (13.0-16.5); Lymphocyte # 1.04 X10^3/ul (4.0); Mean Corp Hgb Conc 31.9 g/dL (32-36); Mean Corpuscular Hgb 33.1 pg (27.0-32.0); Mean Corpuscular Volume 103.5 fL (80-94); Mean Platelet Vol. 10.6 fl (6.2-12.0); Monocyte# 0.52 X10^3/uL; Monocyte% 8.5 % (0-10); NRBC Flagged by Analyzer 0 % (0-5); Neutrophil # 3.91 X10^3/uL (2.7-7.7); Neutrophil % 63.9 % (47-70); Platelet Count 205 K/mm3 (150-450); RBC Distribution Width CV 14.6 % (11.6-14.6); Red Blood Count 3.69 M/mm3 (4.6-6.2); White Blood Count 6.1 K/mm3 (4.4-11.0)
[2019-10-07 15:10] LABS: Vitamin D,25 Hydroxy 19.8 ng/mL
--- NOTE | 2019-10-07 15:10 | RAD_ITS ---
STUDY: X-RAY CHEST REASON FOR EXAM: Male, 84 years old. Unintentional weight loss, lost 26 pounds in 6 months TECHNIQUE: PA and lateral views of the chest. COMPARISON: Comparison is made with prior examination dated October 01, 2018. FINDINGS: Hyperinflation. Scattered calcified granulomas. Decreased bilateral bronchovascular markings suggestive of emphysematous changes. There is no demonstrated pleural abnormality. Normal size heart. Normal mediastinum and binu. There is prominence of the pulmonary hilar arteries without peripheral pulmonary vascular congestion, suggesting pulmonary hypertension. There is atherosclerotic calcification of the aortic arch with tortuosity. There are diffuse degenerative changes of the visualized thoracic spine. Normal visualized ribs, clavicles, and shoulders. There is no demonstrated abnormality of the visualized soft tissue structures of the upper abdomen. RAD/Chest PA and Lateral IMPRESSION: Stable examination. No acute abnormality is seen. Electronically Signed: Jalen Rodriguez, at 15:24 EDT , Service support ,
[2019-10-07 15:16] LABS: ALB/GLOB Ratio 1.2 RATIO (0.9-2.4); AST(SGOT) 15 U/L (15-37); Alanine Aminotransfer ALT/SGPT 32 U/L (16-61); Albumin, Serum 3.4 g/dL (3.2-5.0); Alkaline Phosphatase 155 U/L (45-117); Anion Gap 6 (5-15); BUN 13 mg/dL (7-18); BUN/Creat Ratio 13.1 RATIO (10-20); Chloride 109 mmol/L (98-107); Creatinine, Serum 0.99 mg/dL (0.70-1.30); EST Glomerular Filtration Rate 76 mL/min (>60); Est Glom Filt Rate - Afr Amer 92 mL/min (>60); Globulin 2.9 g/dL (2.2-4.2); Glucose 117 mg/dL (74-106); Protein, Total 6.3 g/dL (6.4-8.2); Sodium Level 146 mmol/L (136-145)
== END ==
PROVIDERS: PCP Family Medicine Geriatric Medicine; Visit Provider Family Medicine Geriatric Medicine
DX: E55.9 Vitamin D deficiency, unspecified (principal); I10 Essential (primary) hypertension
CPT/HCPCS: 36415; 71046; 80053; 82306; 84443; 85025

== ENCOUNTER → 2020-04-15 15:29 | Outpatient (CLI) | payer MEDICARE, SELFPAY ==
[2019-08-19 11:00] VITALS: BMI 22.8
[2020-04-15 17:06] LABS: Absolute Lymphocyte Count 1.41 X10^3/uL (0.83-4.51); Absolute Neutrophil Count 4.4 X10^3/uL (2.0-7.7); Basophil# 0.02 X10^3/uL; Basophil% 0.3 % (0-1); Eosinophil# 0.73 X10^3/uL; Hematocrit 38.9 % (40-54); Hemoglobin 12.5 g/dL (13.0-16.5); Lymphocyte # 1.41 X10^3/ul (4.0); Lymphocyte % 19.3 % (19-41); Mean Corp Hgb Conc 32.1 g/dL (32-36); Mean Corpuscular Hgb 34.7 pg (27.0-32.0); Mean Corpuscular Volume 108.1 fL (80-94); Mean Platelet Vol. 10.4 fl (6.2-12.0); Monocyte# 0.77 X10^3/uL; Monocyte% 10.5 % (0-10); NRBC Flagged by Analyzer 0 % (0-5); Neutrophil # 4.36 X10^3/uL (2.7-7.7); Neutrophil % 59.5 % (47-70); Platelet Count 245 K/mm3 (150-450); RBC Distribution Width CV 14.1 % (11.6-14.6); RBC Distribution Width SD 55.8 fl (35.1-43.9); White Blood Count 7.3 K/mm3 (4.4-11.0)
[2020-04-15 17:19] LABS: Vitamin D,25 Hydroxy 26.2 ng/mL
[2020-04-15 17:29] LABS: ALB/GLOB Ratio 1.2 RATIO (0.9-2.4); AST(SGOT) 14 U/L (15-37); Alanine Aminotransfer ALT/SGPT 26 U/L (16-61); Albumin, Serum 3.7 g/dL (3.2-5.0); Alkaline Phosphatase 100 U/L (45-117); Anion Gap 4 (5-15); BUN 25 mg/dL (7-18); BUN/Creat Ratio 21.2 RATIO (10-20); Calcium,Total 9.2 mg/dL (8.5-10.1); Chloride 112 mmol/L (98-107); Creatinine, Serum 1.18 mg/dL (0.70-1.30); EST Glomerular Filtration Rate 62 mL/min (>60); Est Glom Filt Rate - Afr Amer 75 mL/min (>60); Globulin 3.2 g/dL (2.2-4.2); Glucose 91 mg/dL (74-106); Potassium 4.2 mmol/L (3.5-5.1); Protein, Total 6.9 g/dL (6.4-8.2); Sodium Level 143 mmol/L (136-145); Thyroid Stim Hormone (TSH) 2.24 uIU/mL (0.358-3.74)
== END ==
PROVIDERS: PCP Family Medicine Geriatric Medicine; Visit Provider Family Medicine Geriatric Medicine
DX: E55.9 Vitamin D deficiency, unspecified (principal); I10 Essential (primary) hypertension
CPT/HCPCS: 36415; 80053; 82306; 84443; 85025

== ENCOUNTER → 2020-08-05 09:25 | Outpatient (CLI) | payer MEDICARE, SELFPAY ==
[2019-08-19 11:00] VITALS: BMI 22.8
[2020-08-05 10:51] LABS: AST(SGOT) 16 U/L (15-37); Alanine Aminotransfer ALT/SGPT 21 U/L (16-61); Albumin, Serum 3.6 g/dL (3.2-5.0); Alkaline Phosphatase 100 U/L (45-117); Bilirubin, Direct 0.18 mg/dL (0.00-0.30); Cholesterol 110 mg/dL (200); Globulin 3.2 g/dL (2.2-4.2); High Density Lipoprotein 65 mg/dL; Protein, Total 6.8 g/dL (6.4-8.2); Triglycerides 62 mg/dL; Very Low Density Lipoprotein 12 mg/dL (5-40)
== END ==
PROVIDERS: PCP Family Medicine Geriatric Medicine; Referring Provider Internal Medicine Cardiovascular Disease; Visit Provider Internal Medicine Cardiovascular Disease
DX: E78.5 Hyperlipidemia, unspecified (principal); E78.00 Pure hypercholesterolemia, unspecified
CPT/HCPCS: 36415; 80061; 80076

== ENCOUNTER → 2020-10-14 14:56 | Outpatient (CLI) | payer MEDICARE, SELFPAY ==
[2020-08-19 10:07] VITALS: BMI 27.8
--- NOTE | 2020-10-14 16:00 | RAD_ITS ---
STUDY: X-RAY - PELVIS AND RIGHT HIP REASON FOR EXAM: Male, 85 years old. HIP pain TECHNIQUE: 3 views of the pelvis and hip. COMPARISON: None. FINDINGS: There is a non-specific bowel gas pattern. Normal visualized soft tissue structures. Normal bilateral iliac wings, sacroiliac joints and visualized sacrum. Normal bilateral superior and inferior pubic rami. Normal pubic symphysis. Normal bilateral ischial tuberosities. No visualized acute fracture. Diffuse atherosclerotic calcifications are present. Degenerative changes are partially seen in the lumbar spine. Mild left hip joint space narrowing noted proximally. Preserved right hip joint space. RAD/HIP, UNI W/ Pelvis 2-3 Views IMPRESSION: No acute fracture Electronically Signed: Carlos Goodman MD at 17:26 EDT , Service support ,
[2020-10-14 17:18] LABS: Absolute Lymphocyte Count 1.49 X10^3/uL (0.83-4.51); Absolute Neutrophil Count 4.5 X10^3/uL (2.0-7.7); Basophil# 0.03 X10^3/uL; Basophil% 0.4 % (0-1); Eosinophil# 0.59 X10^3/uL; Hematocrit 42.5 % (40-54); Hemoglobin 13.3 g/dL (13.0-16.5); Lymphocyte # 1.49 X10^3/ul (0.83-4.51); Lymphocyte % 20.1 % (19-41); Mean Corp Hgb Conc 31.3 g/dL (32-36); Mean Corpuscular Hgb 32.8 pg (27.0-32.0); Mean Corpuscular Volume 104.7 fL (80-94); Mean Platelet Vol. 10.7 fl (6.2-12.0); Monocyte# 0.76 X10^3/uL; Monocyte% 10.2 % (0-10); NRBC Flagged by Analyzer 0 % (0-5); Neutrophil # 4.52 X10^3/uL (2.7-7.7); Neutrophil % 60.9 % (47-70); Platelet Count 244 K/mm3 (150-450); RBC Distribution Width CV 13.9 % (11.6-14.6); RBC Distribution Width SD 53.7 fl (35.1-43.9); Red Blood Count 4.06 M/mm3 (4.6-6.2); White Blood Count 7.4 K/mm3 (4.4-11.0)
[2020-10-14 17:42] LABS: ALB/GLOB Ratio 1.1 RATIO (0.9-2.4); AST(SGOT) 14 U/L (15-37); Alanine Aminotransfer ALT/SGPT 23 U/L (16-61); Albumin, Serum 3.7 g/dL (3.2-5.0); Alkaline Phosphatase 89 U/L (45-117); Anion Gap 3 (5-15); BUN 26 mg/dL (7-18); BUN/Creat Ratio 20.6 RATIO (10-20); Calcium,Total 9.1 mg/dL (8.5-10.1); Chloride 108 mmol/L (98-107); Creatinine, Serum 1.26 mg/dL (0.70-1.30); EST Glomerular Filtration Rate 58 mL/min (>60); Est Glom Filt Rate - Afr Amer 70 mL/min (>60); Globulin 3.4 g/dL (2.2-4.2); Glucose 81 mg/dL (74-106); Potassium 4.8 mmol/L (3.5-5.1); Protein, Total 7.1 g/dL (6.4-8.2); Sodium Level 140 mmol/L (136-145); Thyroid Stim Hormone (TSH) 1.91 uIU/mL (0.358-3.74)
== END ==
PROVIDERS: PCP Family Medicine Geriatric Medicine; Referring Provider Family Medicine Geriatric Medicine; Visit Provider Family Medicine Geriatric Medicine
DX: E55.9 Vitamin D deficiency, unspecified (principal); I10 Essential (primary) hypertension; M25.551 Pain in right hip
CPT/HCPCS: 36415; 73502; 80053; 82306; 84443; 85025

== ENCOUNTER → 2020-10-22 12:44 | Outpatient (CLI) | payer MEDICARE, SELFPAY ==
[2020-08-19 10:07] VITALS: BMI 27.8
--- NOTE | 2020-10-22 14:14 | SP.MBSS_ITS ---
Modified Barium Swallow - Patient Information Study Date: 10/22/20 Study Time: 13:00 Direct Billable Minutes: 150 Total Minutes procedure & reportin Diagnosis: Dysphagia, oropharyngeal phase Referring Physician: Derek Singh Chi Reason for Referral: The pt reports increased difficulty swallowing both food and solid textures in the past few months. 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 The pt has been referred for a repeat modified barium swallow (MBS) study to objectively assess the patient?s oropharyngeal swallow function under fluoroscopy due to patient complaints for increased coughing with food and drink. 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 During hospitalization, he progressed to mechanical soft textures, nectar thickened liquids with dysphagia therapy. He had follow-up home health speech therapy to continue with dysphagia therapy and further upgrade his diet. He is currently consuming regular diet textures / thin liquids. The pt denies recent pneumonia. He did report he has noticed changes in his vocal quality with increased hoarseness in the past 2-3 months. 02/28/2018 MBS revealed moderate to severe oropharyngeal dysphagia with SILENT aspiration of thin and nectar thickened liquids. 04/10/2018 MBS revealed mild to moderate oropharyngeal dysphagia with transient penetration of thin liquids and recommendation for mechanical soft textures, nectar thickened liquid diet. Current Diet Ordered: Regular textures / Thin liquids Dentition: WNL - Study Findings Consistencies: Thin Liquid, [place] Thick Liquid, Honey Thick Liquid, Pudding, Cookie - Penetration-Aspiration Scale Penetration-Aspiration Scale: OBJECTIVE ASSESSMENT OF SWALLOW FUNCTION (QUANTITATIVE ? PER TRIAL): PENETRATION / ASPIRATION SCALE (CHRISTIANSON): 1 = does not enter airway 2 = enters airway/above vocal folds/ejected 3 = enters airway/above vocal folds/not ejected 4 = enters airway/contacts vocal folds/ejected 5 = enters airway/contacts vocal folds/not ejected 6 = enters airway/below vocal folds/ejected 7 = enters airway/below vocal folds/not ejected despite effort 8 = enters airway/below vocal folds/no effort VIDEOFLOROSCOPIC SCALE SCORE (CHRISTIANSON): Grade I = aspiration of material that has penetrated into the laryngeal vestibule, intact cough reflex Grade II = aspiration < 10 % of the bolus, intact cough reflex Grade III = aspiration of < 10 % of the bolus, reduced cough reflex or aspiration of > 10 % of the bolus, intact cough reflex Grade IV = aspiration of > 10 % of the bolus, reduced cough reflex - Penetration-Aspiration Scale Score Thin Liquid via teaspoon Result: 5= enters airways/contacts vocal folds/not ejected Thin Liquid via teaspoon Trial 2 Result: 5= enters airways/contacts vocal folds/not ejected Thin Liquid via small single sip from cup Result: 8= enters airway/below vocal folds/no effort Comment: Postprandial aspiration evidenced by contrast collecting below the vocal folds prior to next trial. [place] Thick Liquid via teaspoon Result: 8= enters airway/below vocal folds/no effort Comment: PRESIDENT AND CHIEF COMMERCIAL OFFICER cued the patient to cough with no ejection of penetrated or aspirated material. [place] Thick Liquid via small single sip from cup Result: 3= enters airways/above vocal folds/not ejected [place] Thick Liquid via small single sip from cup Chin tuck Result: 5= enters airways/contacts vocal folds/not ejected Honey Thick Liquid via teaspoon Result: 2= enter airway/above vocal folds/ejected Honey Thick Liquid via small single sip from cup Result: 2= enter airway/above vocal folds/ejected Pudding Result: 1= does not enter airway Pudding Trial 2 Result: 2= enter airway/above vocal folds/ejected Cookie Result: 1= does not enter airway Honey Thick Liquid via single sip from straw Result: 5= enters airways/contacts vocal folds/not ejected - Oral Phase Labial Seal: No Labial Escape Tongue Control During Bolus Hold: Posterior escape of greater than half of bolus Bolus Preparation/Mastication: Slow prolonged chewing/mashing with complete recollection Bolus Transport/Lingual Motion: Repetitive/disorganized tongue motion Oral Residue: Trace residue lining oral structures - Pharyngeal Phase Initiation of Pharyngeal Swallow: Bolus head at posterior laryngeal surgace of epiglottis Soft Palate Elevation: Trace column of contrast/air between soft palate and pharyngeal wall Laryngeal Elevation: Partial superior movement thyroid cart/partial apprx aryt- epig petiole Anterior Hyoid Excursion: Partial anterior movement Epiglottic Movement: Partial inversion Laryngeal Vestibule Closure at Height of Swallow: Incomplete; narrow column of air/contrast in laryngeal vestibule Pharyngeal Stripping Wave: Present - diminished Pharyngoesophageal Segment Opening: Parital distension and partial duration; parital obstruction of flow Tongue Base Retraction: Narrow column of contrast between tongue base & post. pharyngeal wall Pharyngeal Residue: Collection of residue within or on pharyngeal structures - Esophageal Phase Esophageal Clearance: Esophageal retention w/ retrograde flow through pharyngoesophageal seg - Treatment Strategies Effects of treatment strategies attemped:: Attempted use of chin tuck strategy due to delayed initiation of swallow; however, strategy not effective in managing premature posterior loss of bolus or decreasing amount of penetration of nectar thickened liquids. The pt spontaneously utilized double swallow consuming all textures with the exception of thin liquids to effectively clear pharyngeal residues. - Diagnosis/Impression Diagnosis: Moderate-Severe Oropharyngeal Phase Dysphagia Impression: Oral phase deficits were marked prolonged mastication with complete bolus collection, but discoordinated and repetitive tongue motion apparent during bolus transport. Deficits in lingual coordination resulted in posterior loss of greater than half the bolus into the valleculae and posterior surface of the epiglottis. The pharyngeal phase of the swallow presented with delayed initiation of the swallow with bolus head on the posterior surface of the epiglottis, decreased hyolaryngeal elevation and excursion, and partial epiglottic inversion resulting in penetration and aspiration of thin and nectar thickened liquids SILENT in nature. PRESIDENT AND CHIEF COMMERCIAL OFFICER cued the patient to cough collection of aspirate evident below the vocal folds following trials of thin and nectar thickened liquids; however, the patient was unable to expel the bolus from the airway. The patient presents with mild pharyngeal residue following the swallow, which effectively clears with use of spontaneous double swallow present with all textures with exception of thin liquids. The pt had minimal penetration of honey thick liquids by cup and pudding, which ejected successfully from the airway. Throughout the study, the patient presented with reflexive cough or throat clearing in response to penet ration and aspiration. Esophageal phase deficits included slowed esophageal motility, as well as presence of retrograde flow from the esophagus, through the PES, into the pyriform sinuses noted post deglutition of solid texture cookie. The refluxed content cleared from pharynx with use of double swallow. - Recommendations Diet: Honey-thick Liquids Comment: Soft and Bite Sized Textures Compensatory Strategies: Small Bites, Small Sips - Sips one at a time, No Straws, Multiple Swallows, Sitting upright, Remain sitting upright for 30 minutes after PO intake Recommend Repeat Modified Barium Swallow: Yes - 4-8 weeks Need for Skilled Speech Therapy Services: Yes Comment: Patient requires outpatient dysphagia therapy targeting: * continued diet texture management * training and implementation of recommended compensatory strategies * training and implementation of recommended oral and oropharyngeal strengthening exercises to facilitate improved lingual coordination, hyolaryngeal elevation, and pharyngeal contraction * education regarding GERD precautions Recommended Referrals: GI Consult, ENT Consult Education Completed: 1. Described result of evaluation., 7. Pt requires further education on strategies & risks. - Image Count: [phone] - Status Active ST Patient: Active - Contact Information [facility] Speech Therapy:: Makeda Wiggins M.A. CCC-PRESIDENT AND CHIEF COMMERCIAL OFFICER [place] [phone]
== END ==
LOC: RAD 12:46
PROVIDERS: PCP Family Medicine Geriatric Medicine; Referring Provider Family Medicine Geriatric Medicine; Visit Provider Family Medicine Geriatric Medicine
DX: R13.10 Dysphagia, unspecified (principal)
CPT/HCPCS: 74230; 92611

== ENCOUNTER → 2020-10-26 09:58 | Outpatient (CLI) | payer MEDICARE, SELFPAY ==
[2020-08-19 10:07] VITALS: BMI 27.8
--- NOTE | 2020-10-26 10:01 | ART_ITS ---
Reason For Study: PAOD Procedure A bilateral lower extremity continuous wave Doppler with analog waveform analysis and ankle brachial indexes. Left Segmental Pressures Left brachial= 116mmHg. Left posterior tibial artery = 78mmHg. Left dorsalis pedis artery = 77mmHg. Left digit = 40 mmHg. The left dorsalis pedis waveforms are monophasic. The left posterior tibial artery waveforms are monophasic. Right Segmental Pressures Right brachial= 107mmHg. Right posterior tibial artery = 53mmHg. Right dorsalis pedis artery = 58mmHg. Right digit = 13 mmHg. The right dorsalis pedis waveforms are monophasic. The right posterior tibial artery waveforms are monophasic. Indices The right ankle brachial index by the dorsalis pedis is 0.50. The right ankle brachial index by the posterior tibial artery is 0.46. The right digital-brachial index is 0.11. The left ankle brachial index by the dorsalis pedis is 0.66. The left ankle brachial index by the posterior tibial artery is 0.67. The left digital-brachial index is 0.34. VL/Ankle Brachial Index Interpretation Summary Right leg with moderate occlusive disease with an MILLIE 0.50 with monophasic flow noted.Small vessel disease with a digit brachial index of 0.11. Left leg also with moderate occlus geena disease with monophasic flow and an MILLIE 0.67. Digit brachial index on the left is 0.34. Ordering Physician: Derek Singh Referring Physician: Derek Singh Chi Performed By: Darcy Headley RVT and Student
== END ==
PROVIDERS: PCP Family Medicine Geriatric Medicine; Referring Provider Family Medicine Geriatric Medicine; Visit Provider Family Medicine Geriatric Medicine
DX: I73.9 Peripheral vascular disease, unspecified (principal); L81.9 Disorder of pigmentation, unspecified
CPT/HCPCS: 88305; 93922

== ENCOUNTER → 2020-10-26 11:43 | Outpatient (CLI) | payer MEDICARE, SELFPAY ==
[2020-08-19 10:07] VITALS: BMI 27.8
--- NOTE | 2020-10-26 09:40 | TISS_PTH ---
PATIENT: JACKSON GRADY LOC: [facility] U#:[id number] AGE/SX: 89/M ROOM: RE10/26/[address]: Dr. Derek Singh MD : 1935 BED: DIS: SPEC #: [id number] RECD: 10/26/20 12:27 STATUS: LUIS OZIEL #: [id number] BALDO: 10/26/20 09:[address]: Derek Singh Chi DEPT: SURGICAL PATHOLOGY RECD BY: Aden Sullivan Tissues: Ear, NOS Procedures: Surgery Specimen Level IV HEADER OPERATION: Left ear lesion biopsy PRE-OP DIAGNOSIS: Left ear lesion TISSUE SUBMITTED: Left ear MICROSCOPIC DIAGNOSIS Lesion of left ear, biopsy: Cutaneous horn with associated acute inflammation. Superficial skin fragment with actinic change. See comment. AM:theodore 10/27/2020 COMMENT Complete excision of the lesion is recommended for definitive classification. Clinical correlation is suggested. MICROSCOPIC DESCRIPTION Slides are reviewed. GROSS DESCRIPTION Received in fixative is one container labeled with the patient's name and designated left ear. The specimen consists of a piece of hussein-white skin measuring 1 x 0.6 x 0.2 cm. The specimen is inked and submitted entirely in one cassette. It will be sectioned at the time of embedding. / SJ:rg 10/26/20 TC:5 [facility]: [id number]
== END ==
LOC: POLAB3 11:43 → LABSPEC 11:46
PROVIDERS: PCP Family Medicine Geriatric Medicine; Visit Provider Family Medicine Geriatric Medicine
DX: L81.9 Disorder of pigmentation, unspecified (principal)
CPT/HCPCS: 88305; 93922

== ENCOUNTER → 2020-12-20 12:34 | Outpatient (CLI) | payer MEDICARE, SELFPAY ==
[2020-08-19 10:07] VITALS: BMI 27.8
--- NOTE | 2020-12-20 14:07 | ST.MBS ---
Modified Barium Swallow - Patient Information Study Date: 12/20/20 Study Time: 13:00 Direct Billable Minutes: 120 Total Minutes procedure & reportin Diagnosis: Dysphagia, unspecified (R13.10) Referring Physician: Derek Singh Chi Reason for Referral: Reassess swallow function and aspiration risk. 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 During hospitalization, he progressed to mechanical soft textures, nectar thickened liquids with dysphagia therapy. He had follow-up home health speech therapy to continue with dysphagia therapy and further upgrade his diet. Following MBS study from 10/22/2020, the patient participated in outpatient speech therapy for oropharyngeal strengthening and training in recommended diet textures and aspiration precautions. The pt has been referred for a repeat modified barium swallow (MBS) study to reassess the patient?s oropharyngeal swallow function. He is currently consuming soft and bite sized / honey thick liquids at home per pt. The pt denies recent pneumonia. 10/22/2020 MBS revealed moderate to severe oropharyngeal dysphagia with SILENT aspiration of thin liquids and recommendation for soft and bite sized textures / honey thick liquids. 02/28/2018 MBS revealed moderate to severe oropharyngeal dysphagia with SILENT aspiration of thin and nectar thickened liquids. 04/10/2018 MBS revealed mild to moderate oropharyngeal dysphagia with transient penetration of thin liquids and recommendation for mechanical soft textures, nectar thickened liquid diet. Current Diet Ordered: Soft & bite sized textures / Honey thick liquids Dentition: WNL Mental Status: WNL Respiratory Status: Oxygenating on Room Air - Intermittent shortness of breath before, during, and after MBS study. - Study Findings Consistencies: Thin Liquid, Falling Water Thick Liquid, Honey Thick Liquid, Pudding, Cookie - Penetration-Aspiration Scale Penetration-Aspiration Scale: OBJECTIVE ASSESSMENT OF SWALLOW FUNCTION (QUANTITATIVE ? PER TRIAL): PENETRATION / ASPIRATION SCALE (CHRISTIANSON): 1 = does not enter airway 2 = enters airway/above vocal folds/ejected 3 = enters airway/above vocal folds/not ejected 4 = enters airway/contacts vocal folds/ejected 5 = enters airway/contacts vocal folds/not ejected 6 = enters airway/below vocal folds/ejected 7 = enters airway/below vocal folds/not ejected despite effort 8 = enters airway/below vocal folds/no effort VIDEOFLOROSCOPIC SCALE SCORE (CHRISTIANSON): Grade I = aspiration of material that has penetrated into the laryngeal vestibule, intact cough reflex Grade II = aspiration < 10 % of the bolus, intact cough reflex Grade III = aspiration of < 10 % of the bolus, reduced cough reflex or aspiration of > 10 % of the bolus, intact cough reflex Grade IV = aspiration of > 10 % of the bolus, reduced cough reflex - Penetration-Aspiration Scale Score Thin Liquid via teaspoon Result: 7= enters airways/below vocal folds/not ejected despite effort Comment: Ineffective cough. Thin Liquid via small single sip from cup Result: 1= does not enter airway Thin Liquid via small single sip from cup Trial 2 Result: 3= enters airways/above vocal folds/not ejected Comment: Retrograde flow through UES. Thin Liquid via small single sip from cup Effortful Double swallow Result: 2= enter airway/above vocal folds/ejected Thin Liquid via single sip from straw Result: 3= enters airways/above vocal folds/not ejected Thin Liquid via small single sip from straw Effortful swallow Result: 3= enters airways/above vocal folds/not ejected Falling Water Thick Liquid via teaspoon Result: 3= enters airways/above vocal folds/not ejected Falling Water Thick Liquid via small single sip from cup Effortful Double swallow Result: 3= enters airways/above vocal folds/not ejected Honey Thick Liquid via teaspoon Result: 1= does not enter airway Honey Thick Liquid via small single sip from cup Result: 3= enters airways/above vocal folds/not ejected Pudding Result: 1= does not enter airway Cookie Result: 1= does not enter airway Thin Liquid via small single sip from cup Trial 3 Result: 3= enters airways/above vocal folds/not ejected Thin Liquid via 1/2 teaspoon Effortful Double Swallow Trial 2 Result: 8= enters airway/below vocal folds/no effort Thin Liquid via small single sip from cup Chin tuck Result: 3= enters airways/above vocal folds/not ejected Thin Liquid via small single sip from cup Super-Supraglottic swallow Result: 8= enters airway/below vocal folds/no effort - Oral Phase Labial Seal: No Labial Escape Tongue Control During Bolus Hold: Posterior escape of greater than half of bolus Bolus Preparation/Mastication: Slow prolonged chewing/mashing with complete recollection Bolus Transport/Lingual Motion: Repetitive/disorganized tongue motion Oral Residue: Residue collection on oral structures - Pharyngeal Phase Initiation of Pharyngeal Swallow: Bolus head in pyriforms Soft Palate Elevation: No bolus between soft palate and pharyngeal wall Laryngeal Elevation: Partial superior movement thyroid cart/partial apprx aryt-epig petiole Anterior Hyoid Excursion: Partial anterior movement Epiglottic Movement: Partial inversion Laryngeal Vestibule Closure at Height of Swallow: Incomplete; narrow column of air/contrast in laryngeal vestibule Pharyngeal Stripping Wave: Present - diminished Pharyngoesophageal Segment Opening: Parital distension and partial duration; parital obstruction of flow Tongue Base Retraction: Narrow column of contrast between tongue base & post. pharyngeal wall Pharyngeal Residue: Collection of residue within or on pharyngeal structures - Treatment Strategies Effects of treatment strategies attemped:: Decreased bolus size = effective with exception of sips of unthickened liquids via teaspoon and 1/2 teaspoon. Double swallow = somewhat effective. Effortful swallow = effective. Chin tuck = not effective. Super-supraglottic = not effective. - Diagnosis/Impression Diagnosis: Moderate-severe oropharyngeal dysphagia (R13.12) Impression: The oral phase of the swallow is primarily marked by impaired bolus control and bolus transport evidenced by lingual pumping resulting in premature posterior spillage of bolus and suboptimal bolus placement prior to swallow onset. The patient also presents with mild oral residues, which the patient effectively cleared with use of second swallow. The pharyngeal phase of the swallow is primarily marked by decreased airway closure due to decreased laryngeal elevation, decreased approximation of the arytenoids to the posterior surface of the epiglottis, and decreased hyolaryngeal excursion. The patient also presents with reduced pharyngeal contraction and reduced duration for opening of the UES resulting in mild-moderate pharyngeal residues and occasional retrograde flow of bolus through UES. He additionally has delayed swallow onset with bolus head of thin liquids initiating in the pyriform sinuses upon onset. The patient presented with SILENT aspiration of thin liquid sips by teaspoon. On certain trials of thin and nectar thick liquids, the patient elicited a delayed, somewhat effective cough; however, contrast remained in the laryngeal vestibule. Was unable to determine if contrast fully ejected from the vestibule on various trials of unthickened and thickened liquids due to the pt's inability to consistently clear contrast with use of cough or double swallow. - Recommendations Diet: Regular Textures - Easy to Chew textures, Honey-thick Liquids Compensatory Strategies: Small Bites, Small Sips, Slow Rate, Multiple Swallows - Pt benefited from use of effortful double swallows with consumption of liquid trials. Pt also benefited from use of multiple swallows with solid textures to clear pharyngeal residue., Sitting upright, Remain sitting upright for 30 minutes after PO intake Recommend Repeat Modified Barium Swallow: Yes - Repeat study in 4-8 weeks after further completion of oropharyngeal strengthening. Need for Skilled Speech Therapy Services: Yes Comment: Will recommend the patient for continued dysphagia therapy to address moderate-severe deficits in oropharyngeal function of swallow. Would consider the patient for continued oropharyngeal strengthening to improve lingual coordination, hyolaryngeal elevation and excursion, tongue base retraction, and UES opening. Would continue use of Katie and Shaker. Would additionally consider implementation of Valarie and effortful swallows. The patient would benefit from thorough education regarding diet recommendations and recommended compensatory strategies. Would strongly consider implementation of modified [place] Free Water Protocol, consuming sips of unthickened water via small single sips by cup with use of effortful double swallow between meals and following oral care to promote improved hydration. Education Completed: 1. Described result of evaluation., 2. Pt understands evaluation & agrees with goals and treatment plan., 7. Pt requires further education on strategies & risks. - Status Active ST Patient: Active - Contact Information [facility] Speech Therapy:: Makeda Wiggins M.A., [facility] Speech Language Pathologist [facility] [address] [place] [address] juan [phone]
== END ==
PROVIDERS: PCP Family Medicine Geriatric Medicine; Referring Provider Family Medicine Geriatric Medicine; Visit Provider Family Medicine Geriatric Medicine
DX: R13.10 Dysphagia, unspecified (principal)
CPT/HCPCS: 74230; 92611

== ENCOUNTER 2021-01-03 11:30 | Outpatient (RCR) | payer MEDICARE, SELFPAY ==
[2020-08-19 10:07] VITALS: BMI 27.8
--- NOTE | 2020-11-10 15:39 | ST ---
[facility] Speech Pathology [address] [place] [address] Modified Barium Swallow Study MR#: [id number] Acct: [id number] Name: JACKSON GRADY Rep #: [id number] : [id number] 85 From: Makeda Wiggins Modified Barium Swallow - Patient Information Study Date: 10/22/20 Study Time: 13:00 Direct Billable Minutes: 150 Total Minutes procedure & reportin Diagnosis: Dysphagia, oropharyngeal phase Referring Physician: Derek Singh Chi Reason for Referral: The pt reports increased difficulty swallowing both food and solid textures in the past few months. 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 The pt has been referred for a repeat modified barium swallow (MBS) study to objectively assess the patient?s oropharyngeal swallow function under fluoroscopy due to patient complaints for increased coughing with food and drink. 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 During hospitalization, he progressed to mechanical soft textures, nectar thickened liquids with dysphagia therapy. He had follow-up home health speech therapy to continue with dysphagia therapy and further upgrade his diet. He is currently consuming regular diet textures / thin liquids. The pt denies recent pneumonia. He did report he has noticed changes in his vocal quality with increased hoarseness in the past 2-3 months. 02/28/2018 MBS revealed moderate to severe oropharyngeal dysphagia with SILENT aspiration of thin and nectar thickened liquids. 04/10/2018 MBS revealed mild to moderate oropharyngeal dysphagia with transient penetration of thin liquids and recommendation for mechanical soft textures, nectar thickened liquid diet. Current Diet Ordered: Regular textures / Thin liquids Dentition: WNL - Study Findings Consistencies: Thin Liquid, [place] Thick Liquid, Honey Thick Liquid, Pudding, Cookie - Penetration-Aspiration Scale Penetration-Aspiration Scale: OBJECTIVE ASSESSMENT OF SWALLOW FUNCTION (QUANTITATIVE ? PER TRIAL): PENETRATION / ASPIRATION SCALE (CHRISTIANSON): 1 = does not enter airway 2 = enters airway/above vocal folds/ejected 3 = enters airway/above vocal folds/not ejected 4 = enters airway/contacts vocal folds/ejected 5 = enters airway/contacts vocal folds/not ejected 6 = enters airway/below vocal folds/ejected 7 = enters airway/below vocal folds/not ejected despite effort 8 = enters airway/below vocal folds/no effort VIDEOFLOROSCOPIC SCALE SCORE (CHRISTIANSON): Grade I = aspiration of material that has penetrated into the laryngeal vestibule, intact cough reflex Grade II = aspiration < 10 % of the bolus, intact cough reflex Grade III = aspiration of < 10 % of the bolus, reduced cough reflex or aspiration of > 10 % of the bolus, intact cough reflex Grade IV = aspiration of > 10 % of the bolus, reduced cough reflex - Penetration-Aspiration Scale Score Thin Liquid via teaspoon Result: 5= enters airways/contacts vocal folds/not ejected Thin Liquid via teaspoon Trial 2 Result: 5= enters airways/contacts vocal folds/not ejected Thin Liquid via small single sip from cup Result: 8= enters airway/below vocal folds/no effort Comment: Postprandial aspiration evidenced by contrast collecting below the vocal folds prior to next trial. [place] Thick Liquid via teaspoon Result: 8= enters airway/below vocal folds/no effort Comment: ANALYTICS ANALYST cued the patient to cough with no ejection of penetrated or aspirated material. [place] Thick Liquid via small single sip from cup Result: 3= enters airways/above vocal folds/not ejected [place] Thick Liquid via small single sip from cup Chin tuck Result: 5= enters airways/contacts vocal folds/not ejected [place] Thick Liquid via teaspoon Result: 2= enter airway/above vocal folds/ejected [place] Thick Liquid via small single sip from cup Result: 2= enter airway/above vocal folds/ejected Pudding Result: 1= does not enter airway Pudding Trial 2 Result: 2= enter airway/above vocal folds/ejected Cookie Result: 1= does not enter airway [place] Thick Liquid via single sip from straw Result: 5= enters airways/contacts vocal folds/not ejected - Oral Phase Labial Seal: No Labial Escape Tongue Control During Bolus Hold: Posterior escape of greater than half of bolus Bolus Preparation/Mastication: Slow prolonged chewing/mashing with complete recollection Bolus Transport/Lingual Motion: Repetitive/disorganized tongue motion Oral Residue: Trace residue lining oral structures - Pharyngeal Phase Initiation of Pharyngeal Swallow: Bolus head at posterior laryngeal surgace of epiglottis Soft Palate Elevation: Trace column of contrast/air between soft palate and pharyngeal wall Laryngeal Elevation: Partial superior movement thyroid cart/partial apprx aryt-epig petiole Anterior Hyoid Excursion: Partial anterior movement Epiglottic Movement: Partial inversion Laryngeal Vestibule Closure at Height of Swallow: Incomplete; narrow column of air/contrast in laryngeal vestibule Pharyngeal Stripping Wave: Present - diminished Pharyngoesophageal Segment Opening: Parital distension and partial duration; parital obstruction of flow Tongue Base Retraction: Narrow column of contrast between tongue base & post. pharyngeal wall Pharyngeal Residue: Collection of residue within or on pharyngeal structures - Esophageal Phase Esophageal Clearance: Esophageal retention w/ retrograde flow through pharyngoesophageal seg - Treatment Strategies Effects of treatment strategies attemped:: Attempted use of chin tuck strategy due to delayed initiation of swallow; however, strategy not effective in managing premature posterior loss of bolus or decreasing amount of penetration of nectar thickened liquids. The pt spontaneously utilized double swallow consuming all textures with the exception of thin liquids to effectively clear pharyngeal residues. - Diagnosis/Impression Diagnosis: Moderate-Severe Oropharyngeal Phase Dysphagia Impression: Oral phase deficits were marked prolonged mastication with complete bolus collection, but discoordinated and repetitive tongue motion apparent during bolus transport. Deficits in lingual coordination resulted in posterior loss of greater than half the bolus into the valleculae and posterior surface of the epiglottis. The pharyngeal phase of the swallow presented with delayed initiation of the swallow with bolus head on the posterior surface of the epiglottis, decreased hyolaryngeal elevation and excursion, and partial epiglottic inversion resulting in penetration and aspiration of thin and nectar thickened liquids SILENT in nature. ANALYTICS ANALYST cued the patient to cough collection of aspirate evident below the vocal folds following trials of thin and nectar thickened liquids; however, the patient was unable to expel the bolus from the airway. The patient presents with mild pharyngeal residue following the swallow, which effectively clears with use of spontaneous double swallow present with all textures with exception of thin liquids. The pt had minimal penetration of honey thick liquids by cup and pudding, which ejected successfully from the airway. Throughout the study, the patient presented with reflexive cough or throat clearing in response to penetration and aspiration. Esophageal phase deficits included slowed esophageal motility, as well as presence of retrograde flow from the esophagus, through the PES, into the pyriform sinuses noted post deglutition of solid texture cookie. The refluxed content cleared from pharynx with use of double swallow. - Recommendations Diet: Honey-thick Liquids Comment: Soft and Bite Sized Textures Compensatory Strategies: Small Bites, Small Sips - Sips one at a time, No Straws, Multiple Swallows, Sitting upright, Remain sitting upright for 30 minutes after PO intake Recommend Repeat Modified Barium Swallow: Yes - 4-8 weeks Need for Skilled Speech Therapy Services: Yes Comment: Patient requires outpatient dysphagia therapy targeting: continued diet texture management training and implementation of recommended compensatory strategies training and implementation of recommended oral and oropharyngeal strengthening exercises to facilitate improved lingual coordination, hyolaryngeal elevation, and pharyngeal contraction education regarding GERD precautions Recommended Referrals: GI Consult, ENT Consult Education Completed: 1. Described result of evaluation., 7. Pt requires further education on strategies & risks. - Image Count: [phone] - Status Active ST Patient: Active - Contact Information [facility] Speech Therapy:: Makeda Wiggins M.A. CCC-ANALYTICS ANALYST [address] [address] 10/22/20 0260 <Electronically signed by Makeda Wiggins > Date/Time Makeda Wiggins Co-Signature Required for all Medicare patients Date/Time Co-Signature CC: ~
--- NOTE | 2020-11-10 17:58 | HP.SP.AD ---
History - History Date of Eval: 11/10/20 Medical Diagnosis (from RX): Dysphagia (R13.10) Previous speech therapy: Yes Results: In February 2018 at [facility] acute care and inpatient rehabilitation. Pt seen for skilled cognitive and dysphagia therapy. Following d/c, Pt participated in home health services. 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 Mckeon) who reported no evidence of cancer according to Pt. 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 - Respiratory Status Respiratory Status: Room Air Objective Dysphagia - Administered by Administered by: Self - [place] Thickened Liquids Administered via: Spoon Gagging: No Comments: Per MBS report on 10/22/20 Pt silently aspirated NTL. Trialed NTL during today's session to determine progress since MBS and potential presence of s/s of aspiration/penetration. Pt trialed NTL via tsp with no overt s/s of aspiration/penetration. Suspect still silently aspirating at this time. Pt benefited from min A verbal cues to initiate a double swallow following each trial. - Honey Thickened Liquids Administered via: Cup, Spoon Symptoms: Couging, Delayed Comments: Per MBS report of 10/22/20, HTL entered above the vocal folds however were ejected following a cough. Trialed HTL via cup and tsp during today's session with 1x overt s/s of aspiration/penetration via delay cough following all trials. Pt benefited from min A verbal cues to initiate a double swallow following each trial. Modified Barium Results Hx MBS Report Entered: Yes MBS Results (from prior exam): 11/10/20 15:39 Speech Therapy by Sara Thomas [facility] Speech Pathology [address] [place] [address] Modified Barium Swallow Study MR#: [id number] Acct: [id number] Name: JACKSON GRADY Rep #: [id number] : [id number] From: Makeda Wiggins Modified Barium Swallow - Patient Information Study Date: 10/22/20 Study Time: 13:00 Direct Billable Minutes: 150 Total Minutes procedure & reportin Diagnosis: Dysphagia, oropharyngeal phase Referring Physician: Derek Singh Chi Reason for Referral: The pt reports increased difficulty swallowing both food and solid textures in the past few months. 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 The pt has been referred for a repeat modified barium swallow (MBS) study to objectively assess the patient?s oropharyngeal swallow function under fluoroscopy due to patient complaints for increased coughing with food and drink. 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 During hospitalization, he progressed to mechanical soft textures, nectar thickened liquids with dysphagia therapy. He had follow-up home health speech therapy to continue with dysphagia therapy and further upgrade his diet. He is currently consuming regular diet textures / thin liquids. The pt denies recent pneumonia. He did report he has noticed changes in his vocal quality with increased hoarseness in the past 2-3 months. 02/28/2018 MBS revealed moderate to severe oropharyngeal dysphagia with SILENT aspiration of thin and nectar thickened liquids. 04/10/2018 MBS revealed mild to moderate oropharyngeal dysphagia with transient penetration of thin liquids and recommendation for mechanical soft textures, nectar thickened liquid diet. Current Diet Ordered: Regular textures / Thin liquids Dentition: WNL - Study Findings Consistencies: Thin Liquid, [place] Thick Liquid, Honey Thick Liquid, Pudding, Cookie - Penetration-Aspiration Scale Penetration-Aspiration Scale: OBJECTIVE ASSESSMENT OF SWALLOW FUNCTION (QUANTITATIVE ? PER TRIAL): PENETRATION / ASPIRATION SCALE (CHRISTIANSON): 1 = does not enter airway 2 = enters airway/above vocal folds/ejected 3 = enters airway/above vocal folds/not ejected 4 = enters airway/contacts vocal folds/ejected 5 = enters airway/contacts vocal folds/not ejected 6 = enters airway/below vocal folds/ejected 7 = enters airway/below vocal folds/not ejected despite effort 8 = enters airway/below vocal folds/no effort VIDEOFLOROSCOPIC SCALE SCORE (CHRISTIANSON): Grade I = aspiration of material that has penetrated into the laryngeal vestibule, intact cough reflex Grade II = aspiration < 10 % of the bolus, intact cough reflex Grade III = aspiration of < 10 % of the bolus, reduced cough reflex or aspiration of > 10 % of the bolus, intact cough reflex Grade IV = aspiration of > 10 % of the bolus, reduced cough reflex - Penetration-Aspiration Scale Score Thin Liquid via teaspoon Result: 5= enters airways/contacts vocal folds/not ejected Thin Liquid via teaspoon Trial 2 Result: 5= enters airways/contacts vocal folds/not ejected Thin Liquid via small single sip from cup Result: 8= enters airway/below vocal folds/no effort Comment: Postprandial aspiration evidenced by contrast collecting below the vocal folds prior to next trial. [place] Thick Liquid via teaspoon Result: 8= enters airway/below vocal folds/no effort Comment: QUALITY CONTROLLER cued the patient to cough with no ejection of penetrated or aspirated material. [place] Thick Liquid via small single sip from cup Result: 3= enters airways/above vocal folds/not ejected [place] Thick Liquid via small single sip from cup Chin tuck Result: 5= enters airways/contacts vocal folds/not ejected Honey Thick Liquid via teaspoon Result: 2= enter airway/above vocal folds/ejected Honey Thick Liquid via small single sip from cup Result: 2= enter airway/above vocal folds/ejected Pudding Result: 1= does not enter airway Pudding Trial 2 Result: 2= enter airway/above vocal folds/ejected Cookie Result: 1= does not enter airway Honey Thick Liquid via single sip from straw Result: 5= enters airways/contacts vocal folds/not ejected - Oral Phase Labial Seal: No Labial Escape Tongue Control During Bolus Hold: Posterior escape of greater than half of bolus Bolus Preparation/Mastication: Slow prolonged chewing/mashing with complete recollection Bolus Transport/Lingual Motion: Repetitive/disorganized tongue motion Oral Residue: Trace residue lining oral structures - Pharyngeal Phase Initiation of Pharyngeal Swallow: Bolus head at posterior laryngeal surgace of epiglottis Soft Palate Elevation: Trace column of contrast/air between soft palate and pharyngeal wall Laryngeal Elevation: Partial superior movement thyroid cart/partial apprx aryt-epig petiole Anterior Hyoid Excursion: Partial anterior movement Epiglottic Movement: Partial inversion Laryngeal Vestibule Closure at Height of Swallow: Incomplete; narrow column of air/contrast in laryngeal vestibule Pharyngeal Stripping Wave: Present - diminished Pharyngoesophageal Segment Opening: Parital distension and partial duration; parital obstruction of flow Tongue Base Retraction: Narrow column of contrast between tongue base & post. pharyngeal wall Pharyngeal Residue: Collection of residue within or on pharyngeal structures - Esophageal Phase Esophageal Clearance: Esophageal retention w/ retrograde flow through pharyngoesophageal seg - Treatment Strategies Effects of treatment strategies attemped:: Attempted use of chin tuck strategy due to delayed initiation of swallow; however, strategy not effective in managing premature posterior loss of bolus or decreasing amount of penetration of nectar thickened liquids. The pt spontaneously utilized double swallow consuming all textures with the exception of thin liquids to effectively clear pharyngeal residues. - Diagnosis/Impression Diagnosis: Moderate-Severe Oropharyngeal Phase Dysphagia Impression: Oral phase deficits were marked prolonged mastication with complete bolus collection, but discoordinated and repetitive tongue motion apparent during bolus transport. Deficits in lingual coordination resulted in posterior loss of greater than half the bolus into the valleculae and posterior surface of the epiglottis. The pharyngeal phase of the swallow presented with delayed initiation of the swallow with bolus head on the posterior surface of the epiglottis, decreased hyolaryngeal elevation and excursion, and partial epiglottic inversion resulting in penetration and aspiration of thin and nectar thickened liquids SILENT in nature. QUALITY CONTROLLER cued the patient to cough collection of aspirate evident below the vocal folds following trials of thin and nectar thickened liquids; however, the patient was unable to expel the bolus from the airway. The patient presents with mild pharyngeal residue following the swallow, which effectively clears with use of spontaneous double swallow present with all textures with exception of thin liquids. The pt had minimal penetration of honey thick liquids by cup and pudding, which ejected successfully from the airway. Throughout the study, the patient presented with reflexive cough or throat clearing in response to penetration and aspiration. Esophageal phase deficits included slowed esophageal motility, as well as presence of retrograde flow from the esophagus, through the PES, into the pyriform sinuses noted post deglutition of solid texture cookie. The refluxed content cleared from pharynx with use of double swallow. - Recommendations Diet: Honey-thick Liquids Comment: Soft and Bite Sized Textures Compensatory Strategies: Small Bites, Small Sips - Sips one at a time, No Straws, Multiple Swallows, Sitting upright, Remain sitting upright for 30 minutes after PO intake Recommend Repeat Modified Barium Swallow: Yes - 4-8 weeks Need for Skilled Speech Therapy Services: Yes Comment: Patient requires outpatient dysphagia therapy targeting: continued diet texture management training and implementation of recommended compensatory strategies training and implementation of recommended oral and oropharyngeal strengthening exercises to facilitate improved lingual coordination, hyolaryngeal elevation, and pharyngeal contraction education regarding GERD precautions Recommended Referrals: GI Consult, ENT Consult Education Completed: 1. Described result of evaluation., 7. Pt requires further education on strategies & risks. - Image Count: [phone] - Status Active ST Patient: Active - Contact Information [facility] Speech Therapy:: Makeda Wiggins M.A. CCC-QUALITY CONTROLLER [place] [phone] 10/22/20 1538 <Electronically signed by Makeda Wiggins > Date/Time Makeda Wiggins Co-Signature Required for all Medicare patients Date/Time Co-Signature CC: ~ Initialized on 11/10/20 15:39 - END OF NOTE Dysphagia Assessment - Swallowing Impairment Contributing Factors to Swallowing Impairment: Reduced Oral Strength/Coordination/Sensation - Impact Impact on Safety & Functioning: Risk for Aspiration - Recommendations Swallowing Treatment: Yes - Diet Texture Recommendations Solids Other: Mechanical Soft Other Solid: Soft and Bite sized Liquids: Honey Thick - Safety Saftey Precautions/Swallowing Recommendations (Check all that Apply): Upright Position at Least 30 Minutes After Meals, Small Sips & Bites when Eating, No Straw, Multiple Swallows Other: Aspiration safety precautions determined via MBS on 10/22/20. Note included in this report. Other Impressions - Comments History -: Pt seen on this date for skilled dysphagia evaluation. Pt known to this facility from CVA in February 2018 for which he received skilled acute tx and inpatient rehabilitation. At the time of d/c it was rx for the Pt to be on a modified diet of mechanical soft solids and HTL. Pt received skilled home health speech therapy following d/c. Today, Pt reports eating normal foods and drinks at home without any modifications. Pt reported that home health recommended he repeat a MBS at the time they d/c him about 3 years ago, however Pt experienced difficulties in remembering to schedule. Pt reported about 6 months ago he started to have difficulties swallow the regular food textures he was consuming. He participated in an MBS swallow study on 10/22/20 at [facility], which rx a modified diet of soft and bite size (mechanical soft) solids and HTL. Pt referred to [facility] to participate in education of oropharyngeal strengthening exercises and diet tolerance. Plan - Plan Plan: Will rx Pt for skilled outpatient tx to address deficits in oropharyngeal dysphagia. Pt would benefit from training and education re: process of thickening liquids, diet tolerance checks, and swallowing exercises to aid in oropharyngeal strengthening. Without skilled intervention, Pt is at risk for consuming a restrictive diet putting him at risk for aspiration pneumonia and atrophy of laryngeal musculature. - Recommendations Treatment Warranted: Yes - Frequency Frequency: 1x/Week Duration: 2 Months Visits in this POC: 8 - Prognosis Prognosis: Good - Goals that are Established: Determination:: Goals will be added/modified as deemed necessary and appropriate. Therapy will be discontinued when results of re-evaluation indicate therapy is no longer needed or lack of progress has been documented. - Goal #1-5 Goal #1: Pt will utilized swallowing strategies (multiple swallows) and tolerate least restrictive diet with no overt s/s of aspiration/penetration to aid in safe consumption of solid/liquids independently. Goal #2: Pt will complete oral motor exercises to aid in bolus manipulation, oral strengthening, and ROM with no cues. Goal #3: Pt will complete pharyngeal strengthening and laryngeal elevation exercises (Katie, Shaker) with no cues. Goal #4: Pt will participate in Modified Barium Swallow (MBS) study to objectively assess Pt's oropharyngeal swallow function to determine the least restrictive means of nutrition and progress from participating in pharyngeal strengthening exercises. Education - Patient has Indicated that the Following Identified Educational Needs: None The Patient has indicated that they have no educational or learning abilities that may effect their care.: Yes - Patient Instruction Patient Education: Diagnosis, Treatment Plan, Goals, Safety Precautions, Diet Level Person Taught: Patient Teaching Method: Discussion Response to teaching: Return demonstration, Verbalize understanding
--- NOTE | 2021-05-12 09:53 | HP.SP.DC ---
ST Discharge Summary - Discharged: Discharge: Pt was seen for initial dysphagia evaluation at [facility] on 11/10/20 secondary to dx of dysphagia. Pt attended 7 additional sessions from initial evaluation targeting oropharyngeal strengthening, bolus manipulation, diet tolerance, and participation in MBSS revealing LRD to be easy to chew solids and honey moderately thickened liquids. Pt being discharged from speech therapy caseload on this date, 05/12/21 secondary to additional therapy sessions not being scheduled after last session. Thank you for allowing me to participate the care of your Pt. Will reevaluate at Pt?s request following script from physician.
== END 2021-01-03 19:00 | disposition home or self-care (01) ==
LOC: SP 11:30
PROVIDERS: PCP Family Medicine Geriatric Medicine; Referring Provider Family Medicine Geriatric Medicine; Visit Provider Family Medicine Geriatric Medicine
DX: I69.391 Dysphagia following cerebral infarction (principal); R13.12 Dysphagia, oropharyngeal phase; R41.841 Cognitive communication deficit
CPT/HCPCS: 92507; 92526; 92610

== ENCOUNTER → 2021-01-13 11:38 | Outpatient (CLI) | payer MEDICARE, SELFPAY ==
[2021-01-13 12:28] LABS: Absolute Lymphocyte Count 1.04 X10^3/uL (0.83-4.51); Absolute Neutrophil Count 9.4 X10^3/uL (2.0-7.7); Basophil# 0.04 X10^3/uL; Basophil% 0.3 % (0-1); Eosinophil# 0.13 X10^3/uL; Eosinophils% 1.1 % (0-5); Hematocrit 41.5 % (40-54); Hemoglobin 13.4 g/dL (13.0-16.5); Lymphocyte # 1.04 X10^3/ul (0.83-4.51); Lymphocyte % 8.8 % (19-41); Mean Corp Hgb Conc 32.3 g/dL (32-36); Mean Corpuscular Hgb 32.8 pg (27.0-32.0); Mean Corpuscular Volume 101.7 fL (80-94); Monocyte# 1.15 X10^3/uL; Monocyte% 9.7 % (0-10); NRBC Flagged by Analyzer 0 % (0-5); Neutrophil # 9.44 X10^3/uL (2.7-7.7); Neutrophil % 79.7 % (47-70); Platelet Count 260 K/mm3 (150-450); RBC Distribution Width CV 13.9 % (11.6-14.6); RBC Distribution Width SD 52.8 fl (35.1-43.9); Red Blood Count 4.08 M/mm3 (4.6-6.2); White Blood Count 11.9 K/mm3 (4.4-11.0)
[2021-01-13 12:42] LABS: Anion Gap 5 (5-15); BUN 24 mg/dL (7-18); BUN/Creat Ratio 17.6 RATIO (10-20); Calcium,Total 9.7 mg/dL (8.5-10.1); Chloride 108 mmol/L (98-107); Creatinine, Serum 1.36 mg/dL (0.70-1.30); EST Glomerular Filtration Rate 53 mL/min (>60); Est Glom Filt Rate - Afr Amer 64 mL/min (>60); Glucose 118 mg/dL (74-106); Potassium 4.2 mmol/L (3.5-5.1); Sodium Level 140 mmol/L (136-145)
== END ==
PROVIDERS: PCP Family Medicine Geriatric Medicine; Visit Provider Family Medicine Geriatric Medicine
DX: N39.0 Urinary tract infection, site not specified (principal); R31.9 Hematuria, unspecified
CPT/HCPCS: 36415; 80048; 85025; 87086

== ENCOUNTER 2021-01-16 06:03 | Emergency (ER) | payer MEDICARE, SELFPAY ==
[2021-01-16 06:07] VITALS: BP 151/131; PULSE 54; RESP 16; TEMP 36.3; O2SAT 98; BMI 29.1
[2021-01-16 06:21] VITALS: BP 124/70
--- NOTE | 2021-01-16 06:27 | EX.ED.DYSGE1 ---
HPI History of Present Illness Chief Complaint: General Illness Detail of Chief Complaint: Constipation, catheter problem Informant: patient Onset/Context/Timing Onset: Days (3) Context: Gradual Onset Timing: Intermittent Narrative Narrative: Patient states he has not been able to have a bowel movement although he feels the need to for the last 3 days. Around that time is when he had a urinary catheter placed because of urinary retention and hematuria, he states this morning he is leaking around the catheter, he feels some abdominal bloating without necessarily having pain, and he is having a lot of pain in the penis. He stopped his Eliquis 3 days ago. [facility] Medical History (Updated 01/16/21 @ 07:[address] Parish Galan MD) Carotid arterial disease Carotid stenosis Essential (primary) hypertension History of cancer of larynx History of CVA (cerebrovascular accident) (02/25/18) Hyperlipidemia Nonobstructive atherosclerosis of coronary artery Home Medications acetaminophen 650 mg PO Q4H PRN PRN tab 03/22/18 [Rx Last Taken Unknown] atorvastatin 40 mg PO QHS #60 tab 03/22/18 [Rx Last Taken Unknown] lisinopril 20 mg PO DAILY #60 tab 03/22/18 [Rx Last Taken Unknown] metoprolol tartrate 50 mg PO BID #120 tab 03/22/18 [Rx Last Taken Unknown] mirtazapine 15 mg tablet 15 mg PO DAILY tablet 08/19/20 [History Last Taken Unknown] Allergy/AdvReac Type Severity Reaction Status Date / Time No Known Allergies Allergy Verified 08/19/20 10:07 Family History Other CAD (coronary artery disease) Heart disease Hypertension Surgical History History of appendectomy History of bilateral knee replacement (2007) History of left heart catheterization (09/27/05) History of left-sided carotid endarterectomy (07/2010) Hx of tonsillectomy Social History Smoking Status: Current every day smoker tobacco type: cigarettes alcohol intake: never substance use type: does not use caffeine: Yes Type: coffee ROS ROS ED Constitutional Constitutional ED: Denies chills or fever(s) Eyes Eyes: Denies change in vision or diplopia ENT ENT ED: Denies rhinorrhea or sore throat Cardiovascular Cardiovascular: Denies chest pain or palpitations Respiratory/Chest Respiratory/Chest: Reports cough, dyspnea on exertion and other Details: Chronic cough and dyspnea with exertion that resolves with rest Gastrointestinal Gastrointestinal: Reports as per HPI; Denies abdominal pain, diarrhea, nausea or vomiting Genitourinary Genitourinary ED: Reports as per HPI and difficulty urinating Musculoskeletal Musculoskeletal: Denies back pain or neck pain Integumentary Denies abscess or rash Neurologic Neurologic: Denies headache(s), paresthesias or weakness Psychiatric Psychiatric: Denies anxiety or suicidal thoughts EXAM Physical Exam Const Vital Signs: 01/16/21 06:07 01/16/21 06:14 01/16/21 06:21 Temperature 97.3 F L Temperature Source Temporal Pulse Rate 54 L Respiratory Rate 16 Respiratory Effort Short of Breath Respiratory Pattern Normal Blood Pressure 151/131 H 124/70 H Blood Pressure Mean 137 88 Pulse Ox 98 Oxygen Delivery Method Room Air Positive well nourished and well developed General Appearance ED: well developed and NAD HEENT Reports moist mucous membranes normocephalic and atraumatic Eyes PERRL and EOMs intact bilaterally Neck full ROM and supple Resp normal respiratory effort and clear to auscultation bilaterally Cardio regular rate, regular rhythm and no murmurs GI non-tender GI Narrative: Mild bloating/distention, soft nontender. No pulsatile mass. On rectal exam, dark brown stool nonbloody present, no tenderness, no hard stool palpable. Auscultation: normoactive bowel sounds Palpation: soft Narrative: Normal-appearing uncircumcised penis with Chopra in place and sediment within the Chopra catheter that is consistent with blood clot. No gross hematuria. Back/Spine no CVA tenderness General Back: other FROM Extremity normal to inspection General Extremety ED: Negative for edema, pulses abnormal or tenderness General Extremity: Negative for edema or pulses abnormal Neuro oriented x3, CN's II-XII intact bilaterally and no sensory deficits noted Sensorium / Orientation: awake and alert Motor Exam: strength 5/5 throughout Skin no rashes or lesions noted and no wounds MDM MDM MDM Narrative Medical decision making narrative: We irrigated the patient's catheter, quite a bit of sediment was removed and quite a bit of urine, around 250 cc, the patient immediately felt much better and the pain he was experiencing was gone. He no longer felt like he needed to have a bowel movement either and declined the enema which is fine. He then told the nurse that he thinks his last bowel movement was just 2 days ago. On reevaluation, he has no hematuria but there is still some sediment and clot coming out of the catheter. Patient is agreeable to have this irrigated 1 more time prior to discharge, he has a follow-up appointment scheduled tomorrow with urology. I am sending his urine for culture, I think it is mostly blood that is causing the test results below as opposed to true infection. Lab Data Attestation: I reviewed the patient's lab results. Labs: Laboratory Results - last 24 hr 01/16/21 06:42 Urine Color Red Urine Clarity Turbid Urine pH 5.0 Ur Specific [place] 1.020 Urine Protein 500 H Urine Glucose (UA) Normal Urine Ketones Negative Urine Occult Blood 250 H Urine Nitrite Negative Urine Bilirubin Negative Urine Urobilinogen Normal Ur Leukocyte Esterase 500 H Urine RBC > 100 SEEN Urine WBC 10-25 SEEN Ur Squamous Epith Cells 0 SEEN Amorphous Sediment 2+ Urine Bacteria 2+ Urine Mucus 0 SEEN Discharge Plan Triage Chief Complaint: General Illness ED Provider: Parish Galan Dx/Rx/DC Orders Clinical Impression: Complication, blocked Chopra catheter Instructions: ED Chopra Catheter, Care Prescriptions: No Action mirtazapine 15 mg tablet 15 mg PO DAILY RF: 0 acetaminophen 325 MG tablet 650 mg PO Q4H PRN PRN (Reason: Mild Pain (0-3/10)/Headache) RF: 0 lisinopril 20 MG tablet 20 mg PO DAILY Qty: 60 RF: 0 atorvastatin 40 MG tablet 40 mg PO QHS Qty: 60 RF: 0 metoprolol tartrate 50 MG tablet 50 mg PO BID Qty: 120 RF: 0 Primary Care Provider: Derek Singh Chi Referrals: Prakash Sweeney MD [STAFF PHYSICIAN] - Keep Jhoana appointment Derek Singh Chi, MD [Primary Care Provider] - Disposition Disposition: Home, Self Care
[2021-01-16 06:46] LABS: Mucous, Urine 0 SEEN /hpf (<or=2+); Squamous Epithelial Cells - UA 0 SEEN /hpf (0-5)
[2021-01-16 06:49] LABS: Color, Urine Red (Yellow); Glucose, Dipstick Normal (Normal); Ketone-Dipstick Negative (Negative); Leukocyte Esterase-Dipstick 500 /ul (Negative); Nitrite-Dipstick Negative (Negative); Occult Blood-Urine 250 /ul (Negative); Protein-Dipstick 500 mg/dl (Negative); Urine Bilirubin Dipstick Negative (Negative); Urine Clarity Turbid (Clear); Urine Urobilinogen Normal (Normal)
[2021-01-16 06:59] LABS: Amorphous Sediment 2+; Bacteria 2+ /hpf (None Seen); Red Blood Cells-Urine > 100 SEEN /hpf (0-5); White Blood Cells 10-25 SEEN /hpf (0-5)
--- NOTE | 2021-01-16 07:10 | ED.RN ---
Patient felt relief of penis pain and states he does not feel the need to have a BM and reports last bm was Sunday and okay with skipping the enema for now -- 550ml uine documented in IO out of catheter and new leg bag placed.
[2021-01-16 08:08] VITALS: BP 114/70; PULSE 56; RESP 18; O2SAT 98
[2021-01-16 08:09] VITALS: PULSE 56
== END 2021-01-16 08:11 | disposition home or self-care (01) ==
PROVIDERS: Emergency Provider Emergency Medicine; PCP Family Medicine Geriatric Medicine
DX: T83.091A Other mechanical complication of indwelling urethral catheter, initial encounter (principal); T83.038A Leakage of other urinary catheter, initial encounter; Y84.6 Urinary catheterization as the cause of abnormal reaction of the patient, or of later complication, without mention of misadventure at the time of the procedure; Y92.9 Unspecified place or not applicable; I10 Essential (primary) hypertension; E78.5 Hyperlipidemia, unspecified; F17.210 Nicotine dependence, cigarettes, uncomplicated; Z79.01 Long term (current) use of anticoagulants; Z79.899 Other long term (current) drug therapy; Z85.21 Personal history of malignant neoplasm of larynx; Z86.73 Personal history of transient ischemic attack (TIA), and cerebral infarction without residual deficits; Z96.653 Presence of artificial knee joint, bilateral
CPT/HCPCS: 81001; 87086; 87088; 99282

== ENCOUNTER 2021-01-17 12:13 | Observation (INO) | payer MEDICARE, SELFPAY ==
[2021-01-17 09:26] VITALS: BMI 27.6
[2021-01-17 09:32] VITALS: BP 110/53; PULSE 91; RESP 18; TEMP 36.7; O2SAT 96
--- NOTE | 2021-01-17 10:41 | PCM.HP.BLA ---
History and Physical Date of Admission: 01/17/21 I have urinary retention. HPI: JACKSON GRADY is a 85 year-old male patient who was referred by ELIZABETH SALAZAR M.D. who is here for urinary retention. His problem was diagnosed 1 day ago. His urinary retention is being treated with thorne catheter. Patient denies suprapubic tube, intemittent catheterization, flomax, hytrin, cardura, uroxatrol, rapaflo, avodart, and proscar. He does not have an abnormal sensation when needing to urinate. He does not have to strain or bear down to start his urinary stream. He does have a good size and strength to his urinary stream. He is not having problems with emptying his bladder well. His urine has shut off completely. He is not having problems with urinary control or incontinence. He has not previously had an indwelling catheter in for more than two weeks at a time. admit for retention of urine and gross hematuria. ALLERGIES: None MEDICATIONS: Cipro 250 mg tablet Flomax 0.4 mg capsule Atorvastatin Calcium 40 mg tablet Eliquis 5 mg tablet Lisinopril 20 mg tablet Metoprolol Tartrate 50 mg tablet Mirtazapine 7.5 mg tablet PAST SURGICAL HISTORY: Appendectomy Hernia Repair Knee Surgery (Unspecified) Tonsillectomy PAST MEDICAL HISTORY: Essential (primary) hypertension Headache Hematuria, unspecified Personal history of diseases of the ms sys and conn tiss Retention of urine, unspecified Unspecified hearing loss, unspecified ear Unspecified visual loss Immunizations: None FAMILY HISTORY: Heart Attack - Runs in Family SOCIAL HISTORY: Marital Status: Preferred Language: [place] Timorese Current Smoking Status: Patient smokes. Tobacco Use Assessment Completed: Used Tobacco in last 30 days? Smoking cessation counseling was provided. Does not use smokeless tobacco. Has never drank. Does not use drugs. REVIEW OF SYSTEMS: Constitutional: Patient denies fever, chills, weight loss, and weight gain. Eyes: Patient denies cataracts, glaucoma, and blurry vision. Ears, Nose, Mouth, Throat: Patient reports hearing loss. Patient denies sinus infections and sleep apnea. Cardiovascular: Patient denies chest pains, swollen ankles, irregular heartbeat, and pacemaker/defib. Respiratory: Patient denies shortness of breath, wheezing, oxygen, and cpap machine. Gastrointestinal: Patient denies abdominal pain, diarrhea, constipation, nausea, and vomiting. Genitourinary: Patient reports urinary retention and blood in the urine. Patient denies frequent urination, get up at night to void, leakage of urine, painful urination, frequent uti's, history of stones, difficulty starting stream, weak stream/scanty, and bedwetting. Musculoskeletal: Patient denies sore muscles, back pain, and gout. Integumentary/Skin: Patient denies rash, skin cancer, and chronic itching. Neurological: Patient denies falling/unsteady, paralysis, and stroke/tia. Hematologic/Lymphatic: Patient denies abnormal bleeding, blood transfusion, swollen lymph nodes, deep venous thrombosis, and pulmonary embolism. VITAL SIGNS: 01/17/2021 08:43 AM Weight 170 lb / 77.11 kg Height 67 in / 170.18 cm BP 110/62 mmHg BMI 26.6 kg/m? - BMI Counseling was provided. PHYSICAL EXAM: Constitutional: Well-nourished. No physical deformities. Normally developed. Good grooming. Neck: Neck symmetrical, not swollen. Normal tracheal position. Respiratory: No labored breathing, no use of accessory muscles. Cardiovascular: Normal temperature, normal extremity pulses, no swelling, no varicosities. Lymphatic: No enlargement of neck, axillae, groin. Skin: No paleness, no jaundice, no cyanosis. No lesion, no ulcer, no rash. Neurologic / Psychiatric: Oriented to time, oriented to place, oriented to person. No depression, no anxiety, no agitation. Gastrointestinal: No mass, no tenderness, no rigidity, non obese abdomen. Eyes: Normal conjunctivae. Normal eyelids. Scrotum: No lesions. No edema. No cysts. No warts. Ears, Nose, Mouth, and Throat: Left ear no scars, no lesions, no masses. Right ear no scars, no lesions, no masses. Nose no scars, no lesions, no masses. Normal hearing. Normal lips. Musculoskeletal: Normal gait and station of head and neck. Epididymides: Right: no spermatocele, no masses, no cysts, no tenderness, no induration, no enlargement. Left: no spermatocele, no masses, no cysts, no tenderness, no induration, no enlargement. Testes: No tenderness, no swelling, no enlargement left testes. No tenderness, no swelling, no enlargement right testes. Normal location left testes. Normal location right testes. No mass, no cyst, no varicocele, no hydrocele left testes. No mass, no cyst, no varicocele, no hydrocele right testes. Urethral Meatus: Normal size. No lesion, no wart, no discharge, no polyp. Normal location. Penis: Penile thorne catheter present. Circumcised, no foreskin warts, no cracks. No dorsal peyronie's plaques, no left corporal peyronie's plaques, no right corporal peyronie's plaques, no scarring, no shaft warts. No balanitis, no meatal stenosis. Complexity of Data: Records Review: Previous Doctor Records, Previous Patient Records Urine Test Review: Urinalysis PROCEDURES: None ASSESSMENT: ICD-10 Details 1 Other retention of urine - R33.8 Acute, Systemic Symptoms 2 Benign prostatic hyperplasia with lower urinary tract symptoms - N40.1 Acute, Systemic Symptoms PLAN: Document Letter(s): Created for Patient: Clinical Summary Notes: admit to hospital for bleeding
[2021-01-17] MEDS: 0.9% Normal Saline 1,000 ML 35 ML IV (11:05)
[2021-01-17] MEDS: 0.9% Saline Lock 10 ML Syringe IV (11:06)
[2021-01-17 11:32] LABS: Hemoglobin 11.6 g/dL (13.0-16.5); Mean Corp Hgb Conc 31.4 g/dL (32-36); Mean Corpuscular Volume 105.1 fL (80-94); Mean Platelet Vol. 9.9 fl (6.2-12.0); Platelet Count 244 K/mm3 (150-450); RBC Distribution Width CV 14.2 % (11.6-14.6); RBC Distribution Width SD 54.8 fl (35.1-43.9); Red Blood Count 3.52 M/mm3 (4.6-6.2)
[2021-01-17 11:46] LABS: Anion Gap 3 (5-15); BUN 49 mg/dL (7-18); BUN/Creat Ratio 32.2 RATIO (10-20); Calcium,Total 9.1 mg/dL (8.5-10.1); Chloride 115 mmol/L (98-107); Creatinine, Serum 1.52 mg/dL (0.70-1.30); EST Glomerular Filtration Rate 46 mL/min (>60); Est Glom Filt Rate - Afr Amer 56 mL/min (>60); Estimated Creatinine Clearance 32.62 ml/min; Glucose 100 mg/dL (74-106); Sodium Level 144 mmol/L (136-145)
--- NOTE | 2021-01-17 15:18 | CHAPLAIN ---
Type of Pastoral Visit ___ Initial Visit ___ Follow-up Visit ___ On-call Visit ___ General Patient Visit ___ Spiritual Assessment ___ Family Conference ___ Bereavement ___ Rapid Response ___ Code Blue ___ Other (describe below) Pastoral Care Referral From ___ Patient ___ Family ___ Nurse ___ Physician ___ Archival Records Clerk ___ Cupola Patcher ___ Other (describe below) Sacrament/Intervention ___ Active listening ___ Anointing ___ Voodoo ___ Bereavement ___ Communion ___ Nancy exploration ___ ___ Life review ___ Prayer ___ Reconciliation ___ Sacrament of Sick ___ Supportive presence ___ Wedding ___ Other (describe below) Pastoral Comments patient is sleeping and does not rouse; calling card left
[2021-01-17 16:40] VITALS: BP 114/70; PULSE 80; RESP 16; TEMP 36.6; O2SAT 98
[2021-01-17 21:45] VITALS: BP 107/59; PULSE 87; RESP 20; TEMP 36.4; O2SAT 96
[2021-01-17] MEDS: Mirtazapine 15 MG Tablet 7.5 MG PO (21:51)
[2021-01-17] MEDS: Atorvastatin Calcium 40 MG Tablet PO (21:54)
[2021-01-17 21:55] VITALS: BP 107/59; PULSE 87
[2021-01-17] MEDS: Metoprolol Tartrate 25 MG Tablet PO (21:55)
[2021-01-18] VITALS (15 sets, daily range): BP systolic 87–129; BP diastolic 53–102; PULSE 65–86; RESP 16–20; TEMP 36.1–37; O2SAT 89–100; BMI 27.6
--- NOTE | 2021-01-18 07:42 | PN.URO_ITS ---
Subjective Subjective Bleeding from the catheter has slowed down on its own, the source of bleeding is not clear. Objective Data Objective Data Vital Signs: Vital Signs Temp Pulse Resp BP Pulse Ox 98.2 F 71 20 H 104/59 L 94 01/18/21 02:56 01/18/21 02:56 01/18/21 02:56 01/18/21 02:56 01/18/21 02:56 Oxygen Delivery Method Room Air Weight: 79.96 kg Body Mass Index (BMI) 27.6 Intake & Output: Intake and Output for Last 24 Hours 01/16/21 01/17/21 01/18/21 23:59 23:59 23:59 Intake Total 589 / 589 50 / 50 Output Total 875 / 1325 850 / 850 Balance -286 / -736 -800 / -800 Lab / Micro Data Result Diagrams: 01/17/21 11:16 01/17/21 11:16 Labs: Laboratory Results - last 24 hr 01/17/21 11:16: WBC 9.0, RBC 3.52 L, Hgb 11.6 L, Hct 37.0 L, MCV 105.1 H, MCH 33.0 H, MCHC 31.4 L, RDW Std Deviation 54.8 H, RDW Coeff of Ancelmo 14.2, Plt Count 244, MPV 9.9 01/17/21 11:16: Sodium 144, Potassium 4.0, Chloride 115 H, Carbon Dioxide 26.0, Anion Gap 3 L, BUN 49 H, Creatinine 1.52 H, Estim Creat Clear Calc 32.62, Est GFR (MDRD) Af Amer 56 L, Est GFR (MDRD) Non-Af 46 L, BUN/Creatinine Ratio 32.2 H , Glucose 100, Calcium 9.1 Micro: Microbiology 01/17/21 11:05 Mucosa - Nose SARS-CoV-2 Antigen (Rapid) - Final Physical Exam Const alert and oriented x3 General Appearance: cooperative HEENT normocephalic, head/scalp atraumatic, EAC's normal and TM's normal bilaterally Eyes PERRL and EOMs intact bilaterally Pupil: sluggish Neck no lymphadenopathy, supple and no JVD General: trachea midline Lymph Lymphatic: no lymphadenopathy noted, lymphedema and lymphadenopathy Resp normal respiratory effort, normal air movement and clear to auscultation bilaterally Cardio regular rate, regular rhythm and peripheral pulses 2+ throughout GI soft to palpation, non-tender and non-distended Extremity normal capillary refill and no clubbing, cyanosis or edema General Extremity: no tenderness to palpation of joints or extremities Skin no rashes or lesions noted General Skin Exam: turgor normal Lesions: no lesions Rashes: no rashes Neuro CN's II-XII intact bilaterally Speech: speech normal Motor Exam: strength 5/5 throughout; Negative for general weakness Psych thought process normal, cooperative and affect normal Appearance: appropriate Assessment & Plan Assessment/Plan (1) Gross hematuria: PLAN: Plan to take the surgery tomorrow cystoscopy possible TURP. (2) Acute urinary retention:
[2021-01-18] MEDS: Metoprolol Tartrate 25 MG Tablet PO (08:52)
[2021-01-18] MEDS: Lisinopril 20 MG Tablet PO (08:57)
--- NOTE | 2021-01-18 11:37 | NURSING ---
off the unit at this time. Taken down to surgery via Bed. This nurse asked if pt wanted me to call family. Pt stated no. Has a daughter but she doesnt care.
--- NOTE | 2021-01-18 12:30 | PROS_PTH ---
PATIENT: JACKSON GRADY LOC: MS3 U#:[id number] AGE/SX: 85/M ROOM: [facility] [place] RE01/17/[address]: Dr. Prakash Sweeney MD : [id number] BED: 1 DIS: 01/19/2021 SPEC #: [id number] RECD: 01/18/21 13:45 STATUS: LUIS LUDWIG #: [id number] BALDO: 01/18/21 12:[address]: Prakash Sweeney DEPT: SURGICAL PATHOLOGY RECD BY: Fabiola La ENTERED: 01/19/21 09:29 SP TYPE: TURP OTHR DR: Dr. Derek Singh MD Tissues: Prostate, NOS Procedures: Surgery Specimen Level IV HEADER OPERATION: Cysto, TUR prostate, Olympus, lithotripsy bladder stones PRE-OP DIAGNOSIS: Gross hematuria, urinary retention TISSUE SUBMITTED: Prostate chips MICROSCOPIC DIAGNOSIS Prostate chips, TUR: Benign prostatic hyperplasia, glandular and stromal type. Acute and chronic inflammation. ALEXA:theodore 01/20/2021 MICROSCOPIC DESCRIPTION Slides are reviewed. GROSS DESCRIPTION Received is one container labeled with the patient's name and designated prostate tissue. The specimen consists of multiple irregular fragments of pink-hussein, rubbery, soft tissue that in aggregate weigh 9.3 gm and measure in aggregate 5 x 4 x 1.5 cm. Multiple blood clots are also noted. The entire specimen is submitted in eight cassettes. / ALEXA:theodore 01/19/21 TC:5 CPT: 12092
--- NOTE | 2021-01-18 13:22 | OP.PCM_ITS ---
Report of Operation Date of Procedure: 01/18/21 Pre-Operative Diagnosis: Retention of urine bladder stones Post-Operative Diagnosis: Same Surgery/Procedure Performed:: Cystolitholapaxy and laser of large bladder stones, transurethral section of the prostate Description of Surgical Findings:: In the preoperative setting I discussed with the patient how the surgery would be done with expect afterwards. We discussed how a prostate resection is done and we discussed the risk of the surgery including, bleeding, infection, retrograde ejaculation, changes with ejaculation or intercourse,. We discussed the possibility that the resection of the prostate may not alleviate his urinary symptoms. We discussed the small risk of developing scar tissue along the urethral channel and strictures. We also discussed the chance of the prostate could grow back and he may need further surgery or treatment in the future for prostate problems. Patient was taken back to the operating room, timeout procedure was performed, he was identified and marked and placed on the operating room table. He underwent general anesthesia. He was placed in dorsolithotomy position. Penis and testicles were prepped and draped in usual sterile fashion. Went into the bladder using a 24 [place] cystoscope. We used the laser bridge through the scope for continuous irrigation. Then using the laser bridge we introduced a laser fiber into the bladder and the stone in the bladder was trapped against the back wall. The stone measured 3cm in size. The stone was then lasered using laser lithotripsy the small little pieces all the pieces were evacuated on the bladder. After all the stones were removed then the scope was removed there was minimal bleeding. Went into the bladder using the visual obturator with a resectoscope. Once inside the bladder identified the right and left ureteral orifice. I then identified the prostate and the anatomy of the prostate. I marked out the area of the sphincter and the verumontanum was identified. I then proceeded with the prostate resection first resected the median lobe. And then resected the right lobe of the prostate. Then to resect the left lobe of the prostate. I then resected the apical tissue of the prostate. Made sure that there was no injury to the sphincter or the verumontanum was still intact. At the end of the resection all the chips were Ellik out of the bladder. I then identified the left and right ureteral orifice and these were confirmed to be in good position and effluxing and not injured. The resectoscope was removed, a 22 [place] catheter was placed into the bladder on continuous irrigation. And the urine was fairly light pink color and draining normally. He was taken back to the PACU in good condition. Type of Anesthesia: General Drains: 22fr way Admit VTE Documentation VTE Present on Admission: No VTE Mechan Device Prophylaxis: SCD's
--- NOTE | 2021-01-18 14:00 | CASEMGMT ---
NISHA CM in to pt room to give MENDOZA. Pt is off of floor in OR at this time.
--- NOTE | 2021-01-18 14:30 | EKG12_ITS ---
Test Reason : Blood Pressure : / mmHG Vent. Rate : 080 BPM Atrial Rate : 097 BPM P-R Int : 000 ms QRS Dur : 098 ms QT Int : 404 ms P-R-T Axes : 000 -11 025 degrees QTc Int : 465 ms Atrial fibrillation Septal infarct , age undetermined Inferior infarct (cited on or before 25-JUL-2010) Abnormal ECG When compared with ECG of 27-FEB-2018 16:00, Atrial fibrillation has replaced Sinus rhythm Septal infarct is now Present T wave inversion no longer evident in Anterolateral leads Confirmed by EVELIO BRAUN, VERONIQUE ([id number]), editor in chief ODALYS LOPEZ ([id number]) on 01/21/2021 10:00:17 A M Referred By: DANIS Confirmed By:DOMINICK FRASER MD
[2021-01-18 15:11] LABS: Troponin-I HS 15 pg/mL (3.0-78.0)
[2021-01-18 16:04] LABS: CPK Total, Creatine Kinase 68 U/L (39-308)
[2021-01-18] MEDS: 0.9% Normal Saline 1,000 ML 35 ML IV (16:35)
[2021-01-18] MEDS: Acetaminophen 325 MG Tablet 650 MG PO (16:46)
--- NOTE | 2021-01-18 16:54 | CHAPLAIN ---
Type of Pastoral Visit _x__ Initial Visit ___ Follow-up Visit ___ On-call Visit ___ General Patient Visit ___ Spiritual Assessment ___ Family Conference ___ Bereavement ___ Rapid Response ___ Code Blue ___ Other (describe below) Pastoral Care Referral From _x__ Patient ___ Family ___ Nurse ___ Physician ___ [employer] Bpm Consultant ___ Hearing Screen Coordinator ___ Other (describe below) Sacrament/Intervention _x__ Active listening ___ Anointing ___ Christianity ___ Bereavement ___ Communion ___ Nancy exploration ___ ___ Life review _x__ Prayer ___ Reconciliation ___ Sacrament of Sick _x__ Supportive presence ___ Wedding ___ Other (describe below) Pastoral Comments
[2021-01-18] MEDS: Docusate Sodium 100 MG Capsule 200 MG PO (22:18)
[2021-01-18] MEDS: Mirtazapine 15 MG Tablet 7.5 MG PO (22:19)
[2021-01-18] MEDS: Atorvastatin Calcium 40 MG Tablet PO (22:19)
[2021-01-19 02:30] VITALS: BP 103/65; PULSE 85; RESP 16; TEMP 37.2; O2SAT 97
--- NOTE | 2021-01-19 07:32 | PCM.PN.GU ---
Subjective Subjective s/p turp and laser stones d/c thorne today home later today if can void ok Objective Data Objective Data Vital Signs: Vital Signs Temp Pulse Resp BP Pulse Ox 99.0 F 85 16 103/65 97 01/19/21 02:30 01/19/21 02:30 01/19/21 02:30 01/19/21 02:30 01/19/21 02:30 Oxygen Flow Rate (L/min) 2 Oxygen Delivery Method Nasal Cannula Weight: 79.96 kg Body Mass Index (BMI) 27.6 Intake & Output: Intake and Output for Last 24 Hours 01/17/21 01/18/21 01/19/21 23:59 23:59 23:59 Intake Total 589 / 589 1096 / 1096 495.25 / 495.25 Output Total 875 / 1325 2400 / 2400 Balance -286 / -736 -1304 / -1304 495.25 / 495.25 Lab / Micro Data Result Diagrams: 01/17/21 11:16 01/17/21 11:16 Labs: Laboratory Results - last 24 hr 01/18/21 14:44: Troponin I High Sens 15 01/18/21 14:44: Total Creatine Kinase 68 Micro: Microbiology 01/17/21 11:05 Mucosa - Nose SARS-CoV-2 Antigen (Rapid) - Final
[2021-01-19 07:56] VITALS: BP 124/72; PULSE 54; RESP 18; TEMP 37.3; O2SAT 95
[2021-01-19 10:02] VITALS: BP 105/72; PULSE 93; RESP 18; TEMP 37.3; O2SAT 100
[2021-01-19 10:23] VITALS: PULSE 93
[2021-01-19] MEDS: Metoprolol Tartrate 25 MG Tablet PO (10:23)
[2021-01-19] MEDS: Docusate Sodium 100 MG Capsule 200 MG PO (10:23)
[2021-01-19] MEDS: Lisinopril 20 MG Tablet PO (10:23)
[2021-01-19] MEDS: Magnesium Hydroxide 30 ML UDC PO (10:27)
--- NOTE | 2021-01-19 10:45 | CASEMGMT ---
NISHA CM in to discuss MENDOZA form with patient. RN CM explained MENDOZA form, patient voiced understanding. Pt signed form and filed in chart. Pt provided with a copy of signed MENDOZA form. Patient had no further questions or concerns at this time.
[2021-01-19 13:34] VITALS: BP 115/51; PULSE 84; RESP 18; TEMP 36.9; O2SAT 97
--- NOTE | 2021-01-19 14:58 | PCM.DC.BLA ---
Discharge Summary Date of Admission: 01/17/21 Date of Discharge: 01/19/21 Summary: 85-year-old male was admitted to the hospital for gross hematuria bleeding clot retention, taken to surgery the following day and had a bladder stone that was lasered and removed and the underwent transurethral section of the prostate the following day the catheter was removed for voiding trial but he was unable to urinate so have to go home with a catheter. Physical Exam Const alert and oriented x3 General Appearance: cooperative HEENT normocephalic, head/scalp atraumatic, EAC's normal and TM's normal bilaterally Eyes PERRL and EOMs intact bilaterally Pupil: sluggish Neck no lymphadenopathy, supple and no JVD General: trachea midline Lymph Lymphatic: no lymphadenopathy noted, lymphedema and lymphadenopathy Resp normal respiratory effort, normal air movement and clear to auscultation bilaterally Cardio regular rate, regular rhythm and peripheral pulses 2+ throughout GI soft to palpation, non-tender and non-distended Extremity normal capillary refill and no clubbing, cyanosis or edema General Extremity: no tenderness to palpation of joints or extremities Skin no rashes or lesions noted General Skin Exam: turgor normal Lesions: no lesions Rashes: no rashes Neuro CN's II-XII intact bilaterally Speech: speech normal Motor Exam: strength 5/5 throughout; Negative for general weakness Psych thought process normal, cooperative and affect normal Appearance: appropriate Meaningful Use Info Meaningful Use Diagnoses (Choose all that apply): None applicable Discharge Plan Admission Admit Date/Time: 01/17/21 12:13 Attending Provider: Prakash Sweeney Primary Care Provider: Derek Singh Chi Discharge Orders/Prescriptions Prescriptions: No Action mirtazapine 15 mg tablet 7.5 mg PO QHS RF: 0 acetaminophen 325 MG tablet 650 mg PO Q4H PRN PRN (Reason: Mild Pain (0-3/10)/Headache) RF: 0 lisinopril 20 MG tablet 20 mg PO DAILY Qty: 60 RF: 0 atorvastatin 40 MG tablet 40 mg PO QHS Qty: 60 RF: 0 ciprofloxacin HCl [Cipro] 250 mg tablet 250 mg PO BID RF: 0 tamsulosin [Flomax] 0.4 mg capsule 0.4 mg PO DINNER RF: 0 metoprolol tartrate 50 mg tablet 25 mg PO BID RF: 0 Eliquis 5 mg tablet 5 mg PO BID RF: 0 Referrals / Follow Up: Derek Singh Chi, MD [Primary Care Provider] - Disposition Discharge Orders: Discharge Patient (Routine); Ordered 01/19/21 Ordered By: Dr. Prakash Sweeney
== END 2021-01-19 16:07 | disposition home or self-care (01) ==
PROVIDERS: Anesthesiology; Admitting Provider Urology; PCP Family Medicine Geriatric Medicine; Visit Provider Urology
PROC: (CPT 52318; principal; 2021-01-18 12:20)
DX: N40.1 Benign prostatic hyperplasia with lower urinary tract symptoms (principal); R33.8 Other retention of urine; R31.0 Gross hematuria; I10 Essential (primary) hypertension; F03.90 Unspecified dementia, unspecified severity, without behavioral disturbance, psychotic disturbance, mood disturbance, and anxiety; E78.5 Hyperlipidemia, unspecified; I25.10 Atherosclerotic heart disease of native coronary artery without angina pectoris; F17.210 Nicotine dependence, cigarettes, uncomplicated; N21.0 Calculus in bladder; Z79.899 Other long term (current) drug therapy; Z79.01 Long term (current) use of anticoagulants
CPT/HCPCS: 00914; 52318; 52601; 36415; 80048; 82550; 84484; 85027; 87426; 88305; 92526; 92610; 93005; 96365; 96366; 96375; 99218; 99406; J7030; A4216; G0378; G0379; J3490

== ENCOUNTER 2021-02-09 15:44 | Inpatient (IN) | payer MEDICARE, SELFPAY ==
[2021-02-09] VITALS (26 sets, daily range): BP systolic 89–153; BP diastolic 43–137; PULSE 77–147; RESP 12–40; TEMP 36.7–37.3; O2SAT 20–100; BMI 26.5; BMI 26.3
[2021-02-09] MEDS: dilTIAZem 25 MG/5 ML Vial IV BOLUS (16:27)
--- NOTE | 2021-02-09 16:40 | RAD_ITS ---
HISTORY: Dyspnea EXAMINATION/TECHNIQUE: XR Chest 1 View: Portable upright AP chest x-ray COMPARISON: 10/07/19 FINDINGS: LINES/DEVICES: None. LUNGS: Hazy bilateral airspace opacities without consolidation or pleural effusion. MEDIASTINUM AND CARDIOVASCULAR STRUCTURES: Cardiac silhouette not enlarged. Central airways and mediastinal contour are unremarkable. BONES AND SOFT TISSUES: No acute bony abnormalities. RAD/Chest 1 View (Portable) IMPRESSION: Hazy bilateral airspace disease suspicious for infection including atypical or viral pneumonia. at 1656 Reported and signed by: Juan M Fountain MD Electronically Signed: Juan M Fountain MD at 16:55 EDT Tel , Service support ,
[2021-02-09 16:42] LABS: Absolute Lymphocyte Count 0.66 X10^3/uL (0.83-4.51); Absolute Neutrophil Count 7.1 X10^3/uL (2.0-7.7); Basophil# 0.02 X10^3/uL; Basophil% 0.2 % (0-1); Eosinophil# 0.05 X10^3/uL; Eosinophils% 0.6 % (0-5); Hematocrit 35.3 % (40-54); Hemoglobin 10.8 g/dL (13.0-16.5); Lymphocyte # 0.66 X10^3/ul (0.83-4.51); Lymphocyte % 7.7 % (19-41); Mean Corp Hgb Conc 30.6 g/dL (32-36); Mean Corpuscular Hgb 31.9 pg (27.0-32.0); Mean Corpuscular Volume 104.1 fL (80-94); Mean Platelet Vol. 10.3 fl (6.2-12.0); Monocyte# 0.72 X10^3/uL; Monocyte% 8.4 % (0-10); NRBC Flagged by Analyzer 0 % (0-5); Neutrophil # 7.09 X10^3/uL (2.7-7.7); Neutrophil % 82.4 % (47-70); Platelet Count 436 K/mm3 (150-450); RBC Distribution Width CV 15.2 % (11.6-14.6); RBC Distribution Width SD 58.6 fl (35.1-43.9); Red Blood Count 3.39 M/mm3 (4.6-6.2); White Blood Count 8.6 K/mm3 (4.4-11.0)
--- NOTE | 2021-02-09 17:00 | EDS_ITS ---
HPI History of Present Illness Chief Complaint: Shortness of Breath Informant: patient Onset/Context/Timing Onset: Weeks (1) Context: gradual Timing: Continuous Quality: Positive for Dyspnea on exertion Worsened by: Exertion Relieved by: Nothing Associated Symptoms cough and clear sputum; Negative for rhinorrhea, ear pain, fever, sore throat, chills, white sputum, yellow sputum or green sputum Chest Pain: Positive for None Narrative Narrative: Patient presents with shortness of breath that has been getting worse over the past week. Patient states it has gradually been getting worse. Patient states his breathing is worse with any exertion such as walking across the room. Patient states nothing seems to help with it. Patient states he feels fatigued and tired. Patient admits to a cough with some clear sputum. Patient denies any chest pain or palpitations. Patient denies any fevers or chills. Patient denies any nausea or vomiting. PFSH PFSH Medical History Anxiety Carotid arterial disease Carotid stenosis Dementia Dyspnea Essential (primary) hypertension History of cancer of larynx History of CVA (cerebrovascular accident) (02/25/18) Hyperlipidemia Nonobstructive atherosclerosis of coronary artery Smoker Home Medications acetaminophen 650 mg PO Q4H PRN PRN tab 03/22/18 [Rx Last Taken Unknown] atorvastatin 40 mg PO QHS #60 tab 03/22/18 [Rx Last Taken Unknown] lisinopril 20 mg PO DAILY #60 tab 03/22/18 [Rx Last Taken Unknown] mirtazapine 15 mg tablet 7.5 mg PO QHS tablet 08/19/20 [History Last Taken Unknown] apixaban [Eliquis] 5 mg PO BID 01/17/21 [History Last Taken Unknown] ciprofloxacin HCl [Cipro] 250 mg PO BID 01/17/21 [History Last Taken Unknown] metoprolol tartrate 25 mg PO BID 01/17/21 [History Last Taken Unknown] tamsulosin [Flomax] 0.4 mg PO DINNER 01/17/21 [History Last Taken Unknown] Allergy/AdvReac Type Severity Reaction Status Date / Time No Known Allergies Allergy Verified 02/09/21 15:54 Family History Other CAD (coronary artery disease) Heart disease Hypertension Surgical History History of appendectomy History of bilateral knee replacement (2007) History of left heart catheterization (09/27/05) History of left-sided carotid endarterectomy (07/2010) Hx of tonsillectomy Social History Smoking Status: Current every day smoker tobacco type: cigarettes alcohol intake: never substance use type: does not use caffeine: Yes Type: coffee ROS ROS ED Constitutional Constitutional ED: Denies chills or fever(s) Eyes Eyes: Denies blurry vision or change in vision ENT ENT ED: Denies rhinorrhea or sore throat Cardiovascular Cardiovascular: Denies chest pain or palpitations Respiratory/Chest Respiratory/Chest: Reports cough and dyspnea Gastrointestinal Gastrointestinal: Denies nausea or vomiting Genitourinary Genitourinary ED: Denies dysuria or hematuria Musculoskeletal Musculoskeletal: Denies back pain or neck pain Integumentary Denies abscess or rash Neurologic Neurologic: Denies headache(s) or weakness Allergic/Immunologic Allergic/Immunologic ED: Denies mouth swelling or urticaria EXAM Physical Exam Const Vital Signs: 02/09/21 15:46 02/09/21 15:54 02/09/21 15:55 Temperature 99.1 F 99.1 F Temperature Source Oral Oral Pulse Rate 144 H 144 H Respiratory Rate 26 H 26 H Respiratory Effort Short of Breath Respiratory Depth Shallow Respiratory Pattern Tachypnea Blood Pressure 130/82 H 130/82 H Blood Pressure Mean 98 98 Blood Pressure Source Blood Pressure Position Blood Pressure Location Pulse Ox 94 94 Oxygen Delivery Method Nasal Cannula Nasal Cannula Oxygen Flow Rate (L/min) 4 4 02/09/21 16:34 02/09/21 16:54 02/09/21 17:09 Temperature 99.1 F 98.1 F Temperature Source Oral Oral Pulse Rate 98 92 Respiratory Rate 18 20 H Respiratory Effort Respiratory Depth Respiratory Pattern Blood Pressure 130/82 H 141/67 H Blood Pressure Mean 98 91 Blood Pressure Source Monitor Blood Pressure Position Semi-Fowlers Blood Pressure Location Right Arm Pulse Ox 96 20 97 Oxygen Delivery Method Nasal Cannula Nasal Cannula Nasal Cannula Oxygen Flow Rate (L/min) 4 4 4 02/09/21 18:03 02/09/21 18:05 Temperature 98.9 F Temperature Source Oral Pulse Rate 87 87 Respiratory Rate 20 H 20 H Respiratory Effort Respiratory Depth Respiratory Pattern Blood Pressure 130/72 H 130/78 H Blood Pressure Mean 91 95 Blood Pressure Source Blood Pressure Position Semi-Fowlers Blood Pressure Location Right Arm Pulse Ox 99 99 Oxygen Delivery Method Nasal Cannula Nasal Cannula Oxygen Flow Rate (L/min) 4 4 Positive well nourished and well developed General Appearance ED: well developed HEENT Reports moist mucous membranes Neck supple and no JVD Resp normal respiratory effort Auscultation: diminished lung sounds diffuse Cardio Rate: tachycardic Rhythm: abnormal rhythm irregularly irregular GI non-tender and non-distended Auscultation: normoactive bowel sounds Palpation: soft Neuro oriented x3, CN's II-XII intact bilaterally and no sensory deficits noted Sensorium / Orientation: alert Motor Exam: strength 5/5 throughout Psych mental status grossly normal MDM MDM MDM Narrative Medical decision making narrative: EKG was obtained. On my interpretation, it showed atrial fibrillation/flutter with a rate of 153. There are nonspecific ST-T wave changes that are likely rate related. QRS interval and QTc intervals were normal. [place] was normal. CBC showed a mild anemia with hemoglobin of 10.8 hematocrit 35.3. Comprehensive metabolic profile showed a creatinine of 2.01 which was increased from previous results. Lactate was normal. Portable chest x-ray was obtained. There is one view. On my interpretation, there is hazy bilateral airspace disease which could be atypical or viral pneumonia. Bony thorax is normal. There is no cardiomegaly noted. Radiologist also interpreted the x-ray and agrees. Patient was given a bolus of Cardizem and started on a Cardizem drip. Patient's heart rate improved to 80. Patient states he feels tired still. Case was discussed with the hospitalist. He will admit the patient to his service. Patient understood and was agreeable with the plan. A ll questions were answered. Lab Data Labs: Laboratory Results - last 24 hr 02/09/21 02/09/21 02/09/21 16:28 16:28 16:28 WBC 8.6 RBC 3.39 L Hgb 10.8 L Hct 35.3 L MCV 104.1 H MCH 31.9 MCHC 30.6 L RDW Std Deviation 58.6 H RDW Coeff of Ancelmo 15.2 H Plt Count 436 MPV 10.3 Immature Gran % (Auto) 0.700 Neut % (Auto) 82.4 H Lymph % (Auto) 7.7 L [place] % (Auto) 8.4 Eos % (Auto) 0.6 Baso % (Auto) 0.2 Absolute Neuts (auto) 7.1 Absolute Lymphs (auto) 0.66 L Nucleated RBC % 0 Sodium 138 Potassium 4.4 Chloride 105 Carbon Dioxide 25.0 Anion Gap 8 BUN 27 H Creatinine 2.01 H Estim Creat Clear Calc 24.66 Est GFR (MDRD) Af Amer 41 L Est GFR (MDRD) Non-Af 34 L BUN/Creatinine Ratio 13.4 Glucose 146 H Lactic Acid 1.8 Calcium 8.6 Total Bilirubin 0.80 AST 19 ALT 47 Alkaline Phosphatase 98 Troponin I High Sens 16 Total Protein 7.3 Albumin 2.2 L Globulin 5.1 H Albumin/Globulin Ratio 0.4 L Radiography Diagnostic Testing: Radiology Impression Chest X-Ray 02/09/21 16:40 IMPRESSION: Hazy bilateral airspace disease suspicious for infection including atypical or viral pneumonia. at 1656 Reported and signed by: Juan M Fountain MD Electronically Signed: Juan M Fountain MD at 16:55 EDT Tel , Service support , EKG Initial EKG: Attestation: I personally reviewed and interpreted this EKG as follows: Interpretation: Atrial Fibrillation (153) and Non-Specific ST Changes Prior EKG tracings: available for review (Previous EKG on 01/18/2021 showed atrial fibrillation but a normal rate.) Treatment and Re-Evaluation Vital Sign Attestation:: Vital signs were reviewed prior to admission. They are stable. Discharge Plan Dx/Rx/DC Orders Clinical Impression: Atrial fibrillation with rapid ventricular response, Acute kidney injury Disposition Disposition: Acute Care Hospital [facility] Discharge Date/Time: 02/09/21 19:24
[2021-02-09 17:02] LABS: ALB/GLOB Ratio 0.4 RATIO (0.9-2.4); AST(SGOT) 19 U/L (15-37); Alanine Aminotransfer ALT/SGPT 47 U/L (16-61); Albumin, Serum 2.2 g/dL (3.2-5.0); Alkaline Phosphatase 98 U/L (45-117); Anion Gap 8 (5-15); BUN 27 mg/dL (7-18); BUN/Creat Ratio 13.4 RATIO (10-20); Calcium,Total 8.6 mg/dL (8.5-10.1); Chloride 105 mmol/L (98-107); Creatinine, Serum 2.01 mg/dL (0.70-1.30); EST Glomerular Filtration Rate 34 mL/min (>60); Est Glom Filt Rate - Afr Amer 41 mL/min (>60); Estimated Creatinine Clearance 24.66 ml/min; Globulin 5.1 g/dL (2.2-4.2); Glucose 146 mg/dL (74-106); Lactic Acid 1.8 mmol/L (0.4-1.9); Potassium 4.4 mmol/L (3.5-5.1); Protein, Total 7.3 g/dL (6.4-8.2); Sodium Level 138 mmol/L (136-145); Troponin-I HS 16 pg/mL (3.0-78.0)
--- NOTE | 2021-02-09 19:29 | PCS.PANDOC ---
PANDEMIC DOCUMENTATION INITIATED: Date: 01/10/2021 Time: 190
--- NOTE | 2021-02-09 19:49 | EKG12_ITS ---
Test Reason : AM EKG Blood Pressure : / mmHG Vent. Rate : 084 BPM Atrial Rate : 084 BPM P-R Int : 000 ms QRS Dur : 092 ms QT Int : 400 ms P-R-T Axes : 000 -10 -56 degrees QTc Int : 472 ms Atrial fibrillation with premature ventricular or aberrantly conducted complexes Septal infarct (cited on or before 25-OCT-2001) Inferior infarct (cited on or before 25-JUL-2010) Abnormal ECG When compared with ECG of 09-FEB-2021 15:54, Atrial fibrillation has replaced Atrial flutter Vent. rate has decreased BY 69 BPM Nonspecific T wave abnormality now evident in Inferior leads Confirmed by BERNABE BRAUN, TONYA ([id number]), photo editor ODALYS LOPEZ ([id number]) on 02/14/2021 10:16:28 AM Referred By: MIGNON Confirmed By:TONYA KIDD MD
--- NOTE | 2021-02-09 19:54 | ECHOCS_ITS ---
Reason For Study: A. fib/flutter Procedure This was a 2D Doppler, Color Flow transthoracic echocardiogram. Exam performed portable in ICU/CCU. Left Ventricle Normal left ventricle. The estimated ejection fraction is EF 55-60 %. Right Ventricle Normal right ventricle. Normal systolic function. Atria The left atrium is mildly enlarged. Normal right atrium. Mitral Valve There is mild mitral annular calcification. Trivial mitral valve insufficiency. Tricuspid Valve Normal tricuspid valve. Mild tricuspid valve insufficiency. Aortic Valve Mild focal aortic valve calcification. No aortic valve insufficiency. Pulmonic Valve The pulmonic valve is not well visualized. Great Vessels Normal aortic root. Pericardium/Pleural No pericardial effusion. MMode/2D Measurements & Calculations LVIDd: 3.9 cm IVSd: 1.3 cm Ao root diam: 3.7 cm LVIDs: 2.2 cm LVPWd: 0.88 cm RVDd: 3.5 cm FS: 43.9 % LAV(MOD-bp): 65.8 ml LVAd ap4: 26.4 cm2 LVAd ap2: 25.7 cm2 LAV(MOD-bp) Indexed: 34.8 ml/m2 LVLd ap4: 7.8 cm LVLd ap2: 7.9 cm LAV(MOD-sp2): 47.9 ml EDV(MOD-sp4): 74.1 ml EDV(MOD-sp2): 70.7 ml LAV(MOD-sp4): 91.0 ml EDV(sp4-el): 76.4 ml EDV(sp2-el): 70.8 ml LVAs ap4: 14.4 cm2 LVAs ap2: 13.7 cm2 LVLs ap4: 6.8 cm LVLs ap2: 6.9 cm ESV(MOD-sp4): 26.8 ml ESV(MOD-sp2): 24.3 ml ESV(sp4-el): 25.9 ml ESV(sp2-el): 23.3 ml EF(MOD-sp4): 63.8 % EF(MOD-sp2): 65.6 % EF(sp4-el): 66.1 % SV(MOD-sp4): 47.2 ml SV(MOD-sp2): 46.4 ml SV(sp4-el): 50.5 ml LA dimension(2D): 3.9 cm LA A4 area: 26.8 cm2 RA A4 area: 17.9 cm2 Doppler Measurements & Calculations MV E max kenan: 102.0 cm/sec Lat Peak E' Kenan: 8.0 cm/sec Med Peak E' Kenan: 7.1 cm/sec MV A max kenan: 54.4 cm/sec E/E' lat: 12.7 E/E' med: 14.3 MV E/A: 1.9 Ao V2 max: 137.9 cm/sec LV V1 max: 109.5 cm/sec PA V2 max: 82.9 cm/sec Ao max P.6 mmHg LV V1 max P.8 mmHg TR max kenan: 243.9 cm/sec TR max P.9 mmHg ECHO/Echo Complete Interpretation Summary The estimated ejection fraction is EF 55-60 %. N0rmal LV systolic function No channge noted from prior echo in 2017 Ordering Physician: Lizeth Dobbs Referring Physician: Derek Singh Chi Performed By: Vanessa Valdes RDCS
--- NOTE | 2021-02-09 19:59 | HP.PCM_ITS ---
HPI - General General Date of Admission: 02/09/21 HPI Narrative JACKSON GRADY, is a 85 M who presents generalized weakness, exertional dyspnea and easy fatigability. Found to be in atrial fibrillation with rapid ventricular response with heart rate as high as 150. Patient just complains of fatigue and weakness. He denies any chest pain. Denies any nausea vomiting. Denies any fever or chills. PFSH Medical History Anxiety Carotid arterial disease Carotid stenosis Dementia Dyspnea Essential (primary) hypertension History of cancer of larynx History of CVA (cerebrovascular accident) (02/25/18) Hyperlipidemia Nonobstructive atherosclerosis of coronary artery Smoker Home Medications acetaminophen 650 mg PO Q4H PRN PRN tab 03/22/18 [Rx Last Taken Unknown] atorvastatin 40 mg PO QHS #60 tab 03/22/18 [Rx Last Taken Unknown] lisinopril 20 mg PO DAILY #60 tab 03/22/18 [Rx Last Taken Unknown] mirtazapine 15 mg tablet 7.5 mg PO QHS tablet 08/19/20 [History Last Taken Unknown] apixaban [Eliquis] 5 mg PO BID 01/17/21 [History Last Taken Unknown] ciprofloxacin HCl [Cipro] 250 mg PO BID 01/17/21 [History Last Taken Unknown] metoprolol tartrate 25 mg PO BID 01/17/21 [History Last Taken Unknown] tamsulosin [Flomax] 0.4 mg PO DINNER 01/17/21 [History Last Taken Unknown] Allergy/AdvReac Type Severity Reaction Status Date / Time No Known Allergies Allergy Verified 02/09/21 15:54 Family History Other CAD (coronary artery disease) Heart disease Hypertension Surgical History History of appendectomy History of bilateral knee replacement (2007) History of left heart catheterization (09/27/05) History of left-sided carotid endarterectomy (07/2010) Hx of tonsillectomy Social History Smoking Status: Current every day smoker tobacco type: cigarettes alcohol intake: never substance use type: does not use caffeine: Yes Type: coffee ROS ROS Narrative Denies any nausea and vomiting. Denies any lower extremity swelling. All other systems reviewed and essentially negative. Vital Signs Vital Signs Vital Signs: 02/09/21 15:46 02/09/21 15:54 02/09/21 15:55 Temperature 37.3 C 37.3 C Temperature Source Oral Oral Pulse Rate 144 H 144 H Respiratory Rate 26 H 26 H Respiratory Effort Short of Breath Respiratory Depth Shallow Respiratory Pattern Tachypnea Blood Pressure 130/82 H 130/82 H Blood Pressure Mean 98 98 Blood Pressure Source Blood Pressure Position Blood Pressure Location Pulse Ox 94 94 Oxygen Delivery Method Nasal Cannula Nasal Cannula Oxygen Flow Rate (L/min) 4 4 02/09/21 16:34 02/09/21 16:54 02/09/21 17:09 Temperature 37.3 C 36.7 C Temperature Source Oral Oral Pulse Rate 98 92 Respiratory Rate 18 20 H Respiratory Effort Respiratory Depth Respiratory Pattern Blood Pressure 130/82 H 141/67 H Blood Pressure Mean 98 91 Blood Pressure Source Monitor Blood Pressure Position Semi-Fowlers Blood Pressure Location Right Arm Pulse Ox 96 20 97 Oxygen Delivery Method Nasal Cannula Nasal Cannula Nasal Cannula Oxygen Flow Rate (L/min) 4 4 4 02/09/21 18:03 02/09/21 18:05 02/09/21 18:52 Temperature 37.2 C 37.2 C Temperature Source Oral Oral Pulse Rate 87 87 92 Respiratory Rate 20 H 20 H 20 H Respiratory Effort Respiratory Depth Respiratory Pattern Blood Pressure 130/72 H 130/78 H 109/77 Blood Pressure Mean 91 95 87 Blood Pressure Source Blood Pressure Position Semi-Fowlers Blood Pressure Location Right Arm Pulse Ox 99 99 99 Oxygen Delivery Method Nasal Cannula Nasal Cannula Nasal Cannula Oxygen Flow Rate (L/min) 4 4 4 02/09/21 19:16 02/09/21 19:58 Temperature 37.3 C H Temperature Source Oral Pulse Rate 80 Respiratory Rate 20 H Respiratory Effort Respiratory Depth Respiratory Pattern Blood Pressure 136/65 H Blood Pressure Mean 88 Blood Pressure Source Monitor Blood Pressure Position Semi-Fowlers Blood Pressure Location Right Arm Pulse Ox 100 99 Oxygen Delivery Method Nasal Cannula Nasal Cannula Oxygen Flow Rate (L/min) 4 2 Weight Weight: 76.2 kg Body Mass Index (BMI) 26.3 Physical Exam Narrative General. Elderly man, acutely ill looking, chronically ill-appearing, weak appearing, dyspneic at rest, restless and irritable. HEENT. Oral mucosa dry. Neck. Neck is supple. Difficult to assess jugular venous pressures. Heart. Heart sounds are irregular. Slightly distant. Lungs. Expiratory wheezing 2+, transmitted sounds and coarse breath sounds. Diminished breath sounds as well. Abdomen. Soft and full. Moves with respiration. Extremities. No lower extremity edema. 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 Conscious and alert. Oriented x3. Cranial nerves II through XII grossly intact. Power seems like 5/5 in all extremities. Skin. Skin is dry with loss of turgor. Results Lab / Micro Data Result Diagrams: 02/09/21 16:28 02/09/21 16:28 Labs: Laboratory Results - last 24 hr 02/09/21 16:28: WBC 8.6, RBC 3.39 L, Hgb 10.8 L, Hct 35.3 L, MCV 104.1 H, MCH 31.9, MCHC 30.6 L, RDW Std Deviation 58.6 H, RDW Coeff of Ancelmo 15.2 H, Plt Count 436, MPV 10.3, Immature Gran % (Auto) 0.700, Neut % (Auto) 82.4 H, Lymph % (Auto) 7.7 L, [place] % (Auto) 8.4, Eos % (Auto) 0.6, Baso % (Auto) 0.2, Absolute Neuts (auto) 7.1, Absolute Lymphs (auto) 0.66 L, Nucleated RBC % 0 02/09/21 16:28: Sodium 138, Potassium 4.4, Chloride 105, Carbon Dioxide 25.0, Anion Gap 8, BUN 27 H, Creatinine 2.01 H, Estim Creat Clear Calc 24.66, Est GFR (MDRD) Af Amer 41 L, Est GFR (MDRD) Non-Af 34 L, BUN/Creatinine Ratio 13.4, Glucose 146 H, Calcium 8.6, Total Bilirubin 0.80, AST 19, ALT 47, Alkaline Phosphatase 98, Troponin I High Sens 16, Total Protein 7.3, Albumin 2.2 L, Globulin 5.1 H, Albumin/Globulin Ratio 0.4 L 02/09/21 16:28: Lactic Acid 1.8 Micro: Microbiology 02/09/21 16:28 Nasal Secretion SARS-CoV-2 Antigen (Rapid) - Final Radiology Impression Chest X-Ray 02/09/21 16:40 IMPRESSION: Hazy bilateral airspace disease suspicious for infection including atypical or viral pneumonia. at 1656 Reported and signed by: Juan M Fountain MD Electronically Signed: Juan M Fountain MD at 16:55 EDT Tel , Service support , Assessment & Plan Assessment/Plan (1) Atrial fibrillation with rapid ventricular response: PLAN: On review of EKG there appears to beperiods of atrial flutter in addition to atrial fibrillation. Patient has been started on Cardizem drip and heart rate is now in the 80s. Still in atrial fibrillation/flutter rhythm. Consult cardiology. Echocardiogram. [id number] score of 4. Will start patient full anticoagulation with Eliquis. (2) COPD exacerbation: PLAN: Never been diagnosed with COPD. Likely what may be precipitating and driving his atrial fibrillation and rapid rectal response. Significant wheezing and transmitted sounds on examination. States he quit smoking 1 week ago. Will start on breathing treatments with inhaled bronchodilators, systemic steroids and oral antibiotics. Pulmonary function tests when acute respiratory symptoms have resolved and as an outpatient. Smoking cessation assistance. (3) Acute kidney injury: PLAN: Possibly cardiorenal. Will monitor. 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 Charges/Coding Visit Charges Inpatient E&M: 53057 Init Hosp L3
[2021-02-09] MEDS: guaiFENesin 1,200 MG Tablet 1200 MG PO (21:05)
[2021-02-09] MEDS: APIXABAN 5 MG TABLET PO (21:05)
[2021-02-09] MEDS: Atorvastatin Calcium 40 MG Tablet PO (21:05)
[2021-02-09] MEDS: traZODone 50 MG Tablet PO (21:05)
[2021-02-09] MEDS: Mirtazapine 15 MG Tablet 7.5 MG PO (21:05)
[2021-02-09] MEDS: 0.9% Saline Lock 10 ML Syringe IV (21:14)
[2021-02-09] MEDS: Amiodarone 360 MG in Dextrose 5% Viaflo Bag 192.8 ML 33.3 MG CONT INF (22:59)
[2021-02-10] VITALS (24 sets, daily range): BP systolic 81–151; BP diastolic 41–76; PULSE 65–106; RESP 16–31; TEMP 35.8–36.6; O2SAT 94–100
[2021-02-10 03:35] LABS: Absolute Lymphocyte Count 0.35 X10^3/uL (0.83-4.51); Basophil# 0.01 X10^3/uL; Basophil% 0.1 % (0-1); Eosinophil# 0.01 X10^3/uL; Eosinophils% 0.1 % (0-5); Hematocrit 29.3 % (40-54); Hemoglobin 9.1 g/dL (13.0-16.5); Lymphocyte # 0.35 X10^3/ul (0.83-4.51); Lymphocyte % 4.6 % (19-41); Mean Corp Hgb Conc 31.1 g/dL (32-36); Mean Corpuscular Hgb 31.9 pg (27.0-32.0); Mean Corpuscular Volume 102.8 fL (80-94); Mean Platelet Vol. 10.7 fl (6.2-12.0); Monocyte# 0.18 X10^3/uL; Monocyte% 2.4 % (0-10); NRBC Flagged by Analyzer 0 % (0-5); Neutrophil # 6.97 X10^3/uL (2.7-7.7); Neutrophil % 92.3 % (47-70); POSITIVE DIFFERENTIAL YES; Platelet Count 361 K/mm3 (150-450); RBC Distribution Width CV 15.2 % (11.6-14.6); RBC Distribution Width SD 57.3 fl (35.1-43.9); Red Blood Count 2.85 M/mm3 (4.6-6.2); White Blood Count 7.6 K/mm3 (4.4-11.0)
[2021-02-10 03:42] LABS: Differential Indicated SCAN CRITERIA MET
[2021-02-10 04:00] LABS: ALB/GLOB Ratio 0.4 RATIO (0.9-2.4); AST(SGOT) 21 U/L (15-37); Alanine Aminotransfer ALT/SGPT 39 U/L (16-61); Albumin, Serum 1.7 g/dL (3.2-5.0); Alkaline Phosphatase 85 U/L (45-117); Anion Gap 4 (5-15); BUN 27 mg/dL (7-18); BUN/Creat Ratio 15.5 RATIO (10-20); Calcium,Total 7.9 mg/dL (8.5-10.1); Chloride 108 mmol/L (98-107); Creatinine, Serum 1.74 mg/dL (0.70-1.30); EST Glomerular Filtration Rate 40 mL/min (>60); Est Glom Filt Rate - Afr Amer 48 mL/min (>60); Estimated Creatinine Clearance 28.49 ml/min; Globulin 4.6 g/dL (2.2-4.2); Glucose 227 mg/dL (74-106); Magnesium 2.4 mg/dL (1.6-2.6); Phosphorus 3.4 mg/dL (2.5-4.9); Potassium 5.1 mmol/L (3.5-5.1); Protein, Total 6.3 g/dL (6.4-8.2); Sodium Level 136 mmol/L (136-145); Thyroid Stim Hormone (TSH) 0.35 uIU/mL (0.358-3.74)
[2021-02-10 04:15] LABS: Differential Comment SCANNED
[2021-02-10] MEDS: 0.9% Saline Lock 10 ML Syringe IV ×2 (04:24→21:14)
[2021-02-10] MEDS: Amiodarone 360 MG in Dextrose 5% Viaflo Bag 192.8 ML 16.7 MG CONT INF (04:25)
[2021-02-10] MEDS: Ipratropium/Albuterol Sulfate 3 ML AMPUL.NEB INHALATION ×3 (07:20→15:15)
--- NOTE | 2021-02-10 08:06 | PN.HOSP_ITS ---
Subjective Subjective Patient was seen and examined. He is in normal sinus rhythm. Heart rate is controlled. Patient denies any worsening shortness of breath. Objective Data Objective Data Vital Signs: Vital Signs Temp Pulse Resp BP Pulse Ox 97.5 F L 73 26 H 112/57 L 99 02/10/21 04:00 02/10/21 07:19 02/10/21 07:00 02/10/21 07:00 02/10/21 07:00 Oxygen Flow Rate (L/min) 2 Oxygen Delivery Method Nasal Cannula Weight: 77.9 kg Body Mass Index (BMI) 26.3 Intake & Output: Intake and Output for Last 24 Hours 02/08/21 02/09/21 02/10/21 23:59 23:59 23:59 Intake Total 790.29 / 813.62 268.55 / 268.55 Output Total 225 / 225 200 / 200 Balance 565.29 / 588.62 68.55 / 68.55 Lab / Micro Data Result Diagrams: 02/10/21 03:27 02/10/21 03:27 Labs: Laboratory Results - last 24 hr 02/09/21 16:28: WBC 8.6, RBC 3.39 L, Hgb 10.8 L, Hct 35.3 L, MCV 104.1 H, MCH 31.9, MCHC 30.6 L, RDW Std Deviation 58.6 H, RDW Coeff of Ancelmo 15.2 H, Plt Count 436, MPV 10.3, Immature Gran % (Auto) 0.700, Neut % (Auto) 82.4 H, Lymph % (Auto) 7.7 L, [place] % (Auto) 8.4, Eos % (Auto) 0.6, Baso % (Auto) 0.2, Absolute Neuts (auto) 7.1, Absolute Lymphs (auto) 0.66 L, Nucleated RBC % 0 02/09/21 16:28: Sodium 138, Potassium 4.4, Chloride 105, Carbon Dioxide 25.0, Anion Gap 8, BUN 27 H, Creatinine 2.01 H, Estim Creat Clear Calc 24.66, Est GFR (MDRD) Af Amer 41 L, Est GFR (MDRD) Non-Af 34 L, BUN/Creatinine Ratio 13.4, Glucose 146 H, Calcium 8.6, Total Bilirubin 0.80, AST 19, ALT 47, Alkaline Phosphatase 98, Troponin I High Sens 16, Total Protein 7.3, Albumin 2.2 L, Globulin 5.1 H, Albumin/Globulin Ratio 0.4 L 02/09/21 16:28: Lactic Acid 1.8 02/10/21 03:27: WBC 7.6, RBC 2.85 L, Hgb 9.1 L, Hct 29.3 L, MCV 102.8 H, MCH 31.9, MCHC 31.1 L, RDW Std Deviation 57.3 H, RDW Coeff of Ancelmo 15.2 H, Plt Count 361, MPV 10.7, Immature Gran % (Auto) 0.500, Neut % (Auto) 92.3 H, Lymph % (Auto) 4.6 L, [place] % (Auto) 2.4, Eos % (Auto) 0.1, Baso % (Auto) 0.1, Absolute Neuts (auto) 7.0, Absolute Lymphs (auto) 0.35 L, Nucleated RBC % 0, Differential Comment SCANNED 02/10/21 03:27: Sodium 136, Potassium 5.1, Chloride 108 H, Carbon Dioxide 24.0, Anion Gap 4 L, BUN 27 H, Creatinine 1.74 H, Estim Creat Clear Calc 28.49, Est GFR (MDRD) Af Amer 48 L, Est GFR (MDRD) Non-Af 40 L, BUN/Creatinine Ratio 15.5, Glucose 227 H, Calcium 7.9 L, Phosphorus 3.4, Magnesium 2.4, Total Bilirubin 0.70, AST 21, ALT 39, Alkaline Phosphatase 85, Total Protein 6.3 L, Albumin 1.7 L, Globulin 4.6 H, Albumin/Globulin Ratio 0.4 L, TSH 0.35 L Micro: Microbiology 02/09/21 16:28 Nasal Secretion SARS-CoV-2 Antigen (Rapid) - Final Radiography Diagnostic Testing: Radiology Impression Chest X-Ray 02/09/21 16:40 IMPRESSION: Hazy bilateral airspace disease suspicious for infection including atypical or viral pneumonia. at 1656 Reported and signed by: Juan M Fountain MD Electronically Signed: Juan M Fountain MD at 16:55 EDT Tel , Service support , Physical Exam Narrative Physical exam: General: Alert, Oriented x3, Cooperative, No apparent distress, Well developed, on 2 L of oxygen HEENT: Atraumatic Oral: Moist Mucosa Neck: Supple Lungs: Diminished to auscultation, scattered wheezes Cardiovascular: HS I+II, regular, no murmurs Abdomen: Bowel Sounds Present, Soft, Non Tender Extremities: No edema Assessment & Plan Assessment/Plan (1) Atrial fibrillation with rapid ventricular response: (2) Essential (primary) hypertension: (3) Chronic kidney disease, stage III (moderate): QUALIFIERS: Chronic kidney disease stage 3 subtype: stage 3a (GFR 45-59) Qualified Code(s): N18.31 - Chronic kidney disease, stage 3a PLAN: 1. A. fib with RVR, [id number] score of 4, now in normal sinus rhythm Off Cardizem drip, cardiology consulted, now on amiodarone Follow-up on 2D echo 2. Acute COPD exacerbation, improving, continue on breathing treatments, IV steroids, azithromycin 3. Hypoxia secondary to #2, will wean off for SPO2 more than 94% 4. ELISEO on CKD stage IIIa, admitting creatinine is 2.01, baseline creatinine is between 1.3-1.5 Will trend 5. Rest of chronic medical conditions are stable - Hypertension, history of CVA, hyperlipidemia, BPH Continue on Flomax, atorvastatin, Remeron, trazodone Charges/Coding Visit Charges Inpatient E&M: 89202 Subs Hosp L2
--- NOTE | 2021-02-10 10:30 | PCM.CONS.C ---
Documented by User: FREDDY Diana 02/10/21 11:01 Assessment & Plan Assessment/Plan (1) Atrial fibrillation with rapid ventricular response: (2) Essential (primary) hypertension: (3) Chronic kidney disease, stage III (moderate): PLAN: Patient had converted to sinus rhythm. Will start patient on amiodarone 200 mg twice a day, plan would be to keep him on a loading dose for approximately 2 weeks then decrease to once a day. Patient's blood pressure is on the lower end, for now he will not to be on any antihypertensives. We will continue to monitor. Patient is noted to be anemic however he does have a Adrian vas score of 4, will continue with his Eliquis but will decrease his to 2.5 mg twice a day based on his renal function. Recommend continued close monitoring of his hemoglobin HPI Consult Data Date of Consult: 02/10/21 HPI Narrative HPI Narrative: JACKSON GRADY, is a 85 M who presented to [facility] emergency room yesterday afternoon for increased shortness of breath, weakness, fatigue, cough with clear sputum. Patient was being seen by home health nurse and was noted to have an elevated heart rate and was sent to the hospital for further evaluation. Upon presentation EKG was noted to be atrial for but RVR. Patient was admitted for further evaluation. He was also noted to have acute kidney injury. Patient does have a history of minimal coronary artery disease, CVA in 2018, hypertension, peripheral vascular disease, hyperlipidemia and tobacco abuse. Patient was admitted on 01/17/2021 and discharged on 01/19/2021 for gross hematuria and underwent a transurethral section of the prostate. Patient states that he was unaware of his irregular rhythm. His main complaint is fatigue. His hemoglobin is at 9.1. Prior to his hospital stay and December his hemoglobin was 13. He had been on Eliquis at that time for his CVA. Patient's creatinine in September 2020 was 1.26, upon admittance it was 2.01 and today it is 1.74. PFSH Medical History Anxiety Atrial fibrillation with rapid ventricular response Carotid arterial disease Carotid stenosis Dementia Dyspnea Essential (primary) hypertension History of cancer of larynx History of CVA (cerebrovascular accident) (02/25/18) Hyperlipidemia Nonobstructive atherosclerosis of coronary artery Smoker Home Medications acetaminophen 650 mg PO Q4H PRN PRN tab 03/22/18 [Rx Last Taken Unknown] atorvastatin 40 mg PO QHS #60 tab 03/22/18 [Rx Last Taken Unknown] lisinopril 20 mg PO DAILY #60 tab 03/22/18 [Rx Last Taken Unknown] mirtazapine 15 mg tablet 7.5 mg PO QHS tablet 08/19/20 [History Last Taken Unknown] apixaban [Eliquis] 5 mg PO BID 01/17/21 [History Last Taken Unknown] ciprofloxacin HCl [Cipro] 250 mg PO BID 01/17/21 [History Last Taken Unknown] metoprolol tartrate 25 mg PO BID 01/17/21 [History Last Taken Unknown] tamsulosin [Flomax] 0.4 mg PO DINNER 01/17/21 [History Last Taken Unknown] Allergy/AdvReac Type Severity Reaction Status Date / Time No Known Allergies Allergy Verified 02/09/21 15:54 Family History Other CAD (coronary artery disease) Heart disease Hypertension Surgical History History of appendectomy History of bilateral knee replacement (2007) History of left heart catheterization (09/27/05) History of left-sided carotid endarterectomy (07/2010) Hx of tonsillectomy Social History Smoking Status: Current every day smoker tobacco type: cigarettes alcohol intake: never substance use type: does not use caffeine: Yes Type: coffee ROS Constitutional Constitutional: Reports as per HPI Eyes Eyes: Reports systems reviewed and no addt'l complaints, except as documented ENT HEENT: Reports systems reviewed and no addt'l complaints, except as documented Cardiovascular Cardiovascular: Reports systems reviewed and no addt'l complaints, except as documented Respiratory/Chest Respiratory/Chest: Reports systems reviewed and no addt'l complaints, except as documented Gastrointestinal Gastrointestinal: Reports systems reviewed and no addt'l complaints, except as documented Genitourinary Genitourinary: Reports systems reviewed and no addt'l complaints, except as documented Physical Exam Narrative Elderly man, acutely ill looking, chronically ill-appearing, weak appearing, dyspneic at rest, restless and irritable. Resp no use of accessory muscles Auscultation: wheezes scattered wheezes and diminished lung sounds diffuse Cardio regular rate, regular rhythm, S1 normal heart sound, S2 normal heart sound, no murmurs, no rub, no gallops, no JVD and peripheral pulses 2+ throughout Jugular Venous Distention: JVD GI soft to palpation and non-tender Extremity no pedal edema Charges/Coding Visit Charges Office Visits / Consults: 64829 IP Consult L4 Objective Data Vital Signs: Vital Signs Temp Pulse Resp BP Pulse Ox 96.4 F L 85 20 H 93/45 L 99 02/10/21 08:09 02/10/21 10:14 02/10/21 10:14 02/10/21 08:11 02/10/21 08:11 Oxygen Flow Rate (L/min) 2 Oxygen Delivery Method Nasal Cannula Weight: 171 lb 11.841 oz Body Mass Index (BMI) 26.3 Intake & Output: Intake and Output for Last 24 Hours 02/08/21 02/09/21 02/10/21 23:59 23:59 23:59 Intake Total 790.29 / 813.62 293.68 / 293.68 Output Total 225 / 225 325 / 325 Balance 565.29 / 588.62 -31.32 / -31.32 Lab / Micro Data Result Diagrams: 02/10/21 03:27 02/10/21 03:27 Labs: Laboratory Results - last 24 hr 02/09/21 16:28: WBC 8.6, RBC 3.39 L, Hgb 10.8 L, Hct 35.3 L, MCV 104.1 H, MCH 31.9, MCHC 30.6 L, RDW Std Deviation 58.6 H, RDW Coeff of Ancelmo 15.2 H, Plt Count 436, MPV 10.3, Immature Gran % (Auto) 0.700, Neut % (Auto) 82.4 H, Lymph % (Auto) 7.7 L, [place] % (Auto) 8.4, Eos % (Auto) 0.6, Baso % (Auto) 0.2, Absolute Neuts (auto) 7.1, Absolute Lymphs (auto) 0.66 L, Nucleated RBC % 0 02/09/21 16:28: Sodium 138, Potassium 4.4, Chloride 105, Carbon Dioxide 25.0, Anion Gap 8, BUN 27 H, Creatinine 2.01 H, Estim Creat Clear Calc 24.66, Est GFR (MDRD) Af Amer 41 L, Est GFR (MDRD) Non-Af 34 L, BUN/Creatinine Ratio 13.4, Glucose 146 H, Calcium 8.6, Total Bilirubin 0.80, AST 19, ALT 47, Alkaline Phosphatase 98, Troponin I High Sens 16, Total Protein 7.3, Albumin 2.2 L, Globulin 5.1 H, Albumin/Globulin Ratio 0.4 L 02/09/21 16:28: Lactic Acid 1.8 02/10/21 03:27: WBC 7.6, RBC 2.85 L, Hgb 9.1 L, Hct 29.3 L, MCV 102.8 H, MCH 31.9, MCHC 31.1 L, RDW Std Deviation 57.3 H, RDW Coeff of Ancelmo 15.2 H, Plt Count 361, MPV 10.7, Immature Gran % (Auto) 0.500, Neut % (Auto) 92.3 H, Lymph % (Auto) 4.6 L, [place] % (Auto) 2.4, Eos % (Auto) 0.1, Baso % (Auto) 0.1, Absolute Neuts (auto) 7.0, Absolute Lymphs (auto) 0.35 L, Nucleated RBC % 0, Differential Comment SCANNED 02/10/21 03:27: Sodium 136, Potassium 5.1, Chloride 108 H, Carbon Dioxide 24.0, Anion Gap 4 L, BUN 27 H, Creatinine 1.74 H, Estim Creat Clear Calc 28.49, Est GFR (MDRD) Af Amer 48 L, Est GFR (MDRD) Non-Af 40 L, BUN/Creatinine Ratio 15.5, Glucose 227 H, Calcium 7.9 L, Phosphorus 3.4, Magnesium 2.4, Total Bilirubin 0.70, AST 21, ALT 39, Alkaline Phosphatase 85, Total Protein 6.3 L, Albumin 1.7 L, Globulin 4.6 H, Albumin/Globulin Ratio 0.4 L, TSH 0.35 L Micro: Microbiology 02/09/21 16:28 Nasal Secretion SARS-CoV-2 Antigen (Rapid) - Final Cardiology Labs/Tests 02/09/21 16:28: WBC 8.6, RBC 3.39 L, Hgb 10.8 L, Hct 35.3 L, MCV 104.1 H, MCH 31.9, MCHC 30.6 L, Plt Count 436, MPV 10.3, Immature Gran % (Auto) 0.700, Neut % (Auto) 82.4 H, Lymph % (Auto) 7.7 L, [place] % (Auto) 8.4, Eos % (Auto) 0.6, Baso % (Auto) 0.2, Absolute Neuts (auto) 7.1, Nucleated RBC % 0 02/09/21 16:28: Sodium 138, Potassium 4.4, Chloride 105, Carbon Dioxide 25.0, Anion Gap 8, BUN 27 H, Creatinine 2.01 H, Est GFR (MDRD) Af Amer 41 L, Est GFR (MDRD) Non-Af 34 L, BUN/Creatinine Ratio 13.4, Glucose 146 H, Calcium 8.6, Total Bilirubin 0.80 02/09/21 16:28: Lactic Acid 1.8 02/10/21 03:27: WBC 7.6, RBC 2.85 L, Hgb 9.1 L, Hct 29.3 L, MCV 102.8 H, MCH 31.9, MCHC 31.1 L, Plt Count 361, MPV 10.7, Immature Gran % (Auto) 0.500, Neut % (Auto) 92.3 H, Lymph % (Auto) 4.6 L, [place] % (Auto) 2.4, Eos % (Auto) 0.1, Baso % (Auto) 0.1, Absolute Neuts (auto) 7.0, Nucleated RBC % 0 02/10/21 03:27: Sodium 136, Potassium 5.1, Chloride 108 H, Carbon Dioxide 24.0, Anion Gap 4 L, BUN 27 H, Creatinine 1.74 H, Est GFR (MDRD) Af Amer 48 L, Est GFR (MDRD) Non-Af 40 L, BUN/Creatinine Ratio 15.5, Glucose 227 H, Calcium 7.9 L, Phosphorus 3.4, Magnesium 2.4, Total Bilirubin 0.70 Rhythm: SR ECHO: 02/10/2021: Estimated ejection fraction is 55 to 60%. No change noted from prior echo in 2018. Radiography Diagnostic Testing: Radiology Impression Chest X-Ray 02/09/21 16:40 IMPRESSION: Hazy bilateral airspace disease suspicious for infection including atypical or viral pneumonia. at 1656 Reported and signed by: Juan M Fountain MD Electronically Signed: Juan M Fountain MD at 16:55 EDT Tel , Service support , Documented by User: Dr. Whitney Ambrose MD 02/10/21 14:45 Assessment & Plan Assessment/Plan (1) Atrial fibrillation with rapid ventricular response: (2) Essential (primary) hypertension: (3) Chronic kidney disease, stage III (moderate): (4) COPD exacerbation: (5) History of CVA (cerebrovascular accident): (6) Nonobstructive atherosclerosis of coronary artery: (7) Carotid arterial disease: (8) Hyperlipidemia: QUALIFIERS: Qualified Code(s): E78.00 - Pure hypercholesterolemia, unspecified; E78.00 - Pure hypercholesterolemia, unspecified; E78.0 - Pure hypercholesterolemia PLAN: I reviewed all the current data of this patient including bedside physical examination, review of the cardiac telemetry, reviewed his current lab, discussed with the ICU team and the medical team Also reviewed the current evaluation and documentation as dictated by the midlevel Cardiac recommendation plan; This patient is a high risk with multiple medical comorbidities nonobstructive CAD, carotid arterial disease and chronic renal insufficiency with essential hypertension and COPD. He had underlying atrial fibrillation/paroxysmal A. fib converted to normal sinus on amiodarone He is a high risk for stroke as he has a prior stroke with high [id number] score. 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 HPI Consult Data Date of Consult: 02/10/21 HPI Narrative Reason for Consultation: Atrial fibrillation with rapid ventricular rate/Converted to NSR [facility] Medical History Anxiety Atrial fibrillation with rapid ventricular response Carotid arterial disease Carotid stenosis Dementia Dyspnea Essential (primary) hypertension History of cancer of larynx History of CVA (cerebrovascular accident) (02/25/18) Hyperlipidemia Nonobstructive atherosclerosis of coronary artery Smoker Home Medications acetaminophen 650 mg PO Q4H PRN PRN tab 03/22/18 [Rx Last Taken Unknown] atorvastatin 40 mg PO QHS #60 tab 03/22/18 [Rx Last Taken Unknown] lisinopril 20 mg PO DAILY #60 tab 03/22/18 [Rx Last Taken Unknown] mirtazapine 15 mg tablet 7.5 mg PO QHS tablet 08/19/20 [History Last Taken Unknown] apixaban [Eliquis] 5 mg PO BID 01/17/21 [History Last Taken Unknown] ciprofloxacin HCl [Cipro] 250 mg PO BID 01/17/21 [History Last Taken Unknown] metoprolol tartrate 25 mg PO BID 01/17/21 [History Last Taken Unknown] tamsulosin [Flomax] 0.4 mg PO DINNER 01/17/21 [History Last Taken Unknown] Allergy/AdvReac Type Severity Reaction Status Date / Time No Known Allergies Allergy Verified 02/09/21 15:54 Family History Other CAD (coronary artery disease) Heart disease Hypertension Surgical History History of appendectomy History of bilateral knee replacement (2007) History of left heart catheterization (09/27/05) History of left-sided carotid endarterectomy (07/2010) Hx of tonsillectomy Social History Smoking Status: Current every day smoker tobacco type: cigarettes alcohol intake: never substance use type: does not use caffeine: Yes Type: coffee Physical Exam Narrative This patient seen and evaluated today at bedside in the intensive care unit along with the midlevel and the nursing staff He was alert orientated Symptoms of shortness of breath no chest pain reported but he was feeling weak Review of the cardiac telemetry had underlying atrial fibrillation which converted to normal sinus rhythm on amiodarone IV Cardiac exam S1-S2 regular, no systolic or diastolic murmur, no pericardial rub or gallop rhythm Chest examination bilateral expiratory wheeze no rhonchi or crackles Examination lower extremity, no lower extremity edema no clubbing or cyanosis Central nervous system exam no focal neurological deficit. Lab / Micro Data Result Diagrams: 02/10/21 03:27 02/10/21 03:27
--- NOTE | 2021-02-10 13:53 | CHAPLAIN ---
Type of Pastoral Visit _x__ Initial Visit ___ Follow-up Visit ___ On-call Visit ___ General Patient Visit ___ Spiritual Assessment ___ Family Conference ___ Bereavement ___ Rapid Response ___ Code Blue ___ Other (describe below) Pastoral Care Referral From _x__ Patient ___ Family ___ Nurse ___ Physician ___ Baggagemaster ___ Scouring Train Operator Chief ___ Other (describe below) Sacrament/Intervention x Active listening ___ Anointing ___ Adventism ___ Bereavement ___ Communion ___ Nancy exploration ___ ___ Life review _x__ Prayer ___ Reconciliation ___ Sacrament of Sick _x__ Supportive presence ___ Wedding ___ Other (describe below) Pastoral Comments patient welcomed presence and support of this eradicator; pt admits to being very tired and to have some anxious thoughts; pt welcomed prayer and supportive words; pt would like a visit later this week if possible
[2021-02-10] MEDS: Amiodarone 200 MG Tablet PO ×2 (13:56→20:31)
[2021-02-10] MEDS: APIXABAN 2.5 MG TABLET PO ×2 (13:59→20:31)
--- NOTE | 2021-02-10 14:30 | CASEMGMT ---
NISHA BERMAN Face to Face with patient for initial transition planning/care coordination assessment. RN CULLEN introduced self and role at [facility]. Patient sitting in chair, alert and oriented. Patient willing to participate in assessment and is able to answer all questions appropriately. Care providers, pharmacy, and demographics verified. Patient wishes to discharge home with resumption of HHC with [facility]. Patient states he has no further needs or concerns at this time. CM to follow for discharge planning needs that may arise. PCP: Francisco Specialists: Yonathan Marrero Pharmacy: [facility] Insurance: [facility] Prescription Benefit: yes Living Will/HPOA: patient unsure at this time LNOK: daughter Living Arrangements: Patient lives alone in first floor apartment with 1 step and grab bar to enter. Patient states he is independent at home. Patient states he receives meals on wheels Transportation: Daughter DME/HHC: patient states he has shower chair, grab bars, and walker at home. Patient is active with [facility] for SN, PT, OT. Patient states he is having trouble with shaving and interested in help. Will add NURSE OUTREACH CASE MANAGER to [facility] services. Disposition Plan: Patient to discharge home with [facility], family support, and follow-up plans in place. Darcy DE SANTIAGO, RN, CM
[2021-02-10] MEDS: Mirtazapine 15 MG Tablet 7.5 MG PO (20:55)
[2021-02-10] MEDS: traZODone 50 MG Tablet PO (20:55)
[2021-02-10] MEDS: Tamsulosin HCl 0.4 MG Capsule PO (21:14)
[2021-02-10] MEDS: guaiFENesin 1,200 MG Tablet 1200 MG PO (21:14)
[2021-02-10] MEDS: Atorvastatin Calcium 40 MG Tablet PO (21:14)
[2021-02-11] VITALS (16 sets, daily range): BP systolic 120–142; BP diastolic 61–76; PULSE 64–95; RESP 16–36; TEMP 36–36.9; O2SAT 83–100
[2021-02-11 06:47] LABS: Absolute Lymphocyte Count 0.45 X10^3/uL (0.83-4.51); Absolute Neutrophil Count 9.1 X10^3/uL (2.0-7.7); Hematocrit 28.5 % (40-54); Hemoglobin 8.8 g/dL (13.0-16.5); Lymphocyte # 0.45 X10^3/ul (0.83-4.51); Lymphocyte % 4.6 % (19-41); Mean Corp Hgb Conc 30.9 g/dL (32-36); Mean Corpuscular Hgb 31.8 pg (27.0-32.0); Mean Corpuscular Volume 102.9 fL (80-94); Mean Platelet Vol. 10.3 fl (6.2-12.0); Monocyte# 0.14 X10^3/uL; Monocyte% 1.4 % (0-10); NRBC Flagged by Analyzer 0 % (0-5); Neutrophil # 9.05 X10^3/uL (2.7-7.7); Neutrophil % 93.3 % (47-70); POSITIVE DIFFERENTIAL YES; Platelet Count 357 K/mm3 (150-450); RBC Distribution Width CV 14.8 % (11.6-14.6); Red Blood Count 2.77 M/mm3 (4.6-6.2); White Blood Count 9.7 K/mm3 (4.4-11.0)
[2021-02-11 06:48] LABS: Differential Indicated SCAN CRITERIA MET
[2021-02-11 07:17] LABS: Differential Comment SCANNED; Hypochromasia 1+
[2021-02-11 07:18] LABS: ALB/GLOB Ratio 0.4 RATIO (0.9-2.4); AST(SGOT) 12 U/L (15-37); Alanine Aminotransfer ALT/SGPT 35 U/L (16-61); Albumin, Serum 1.8 g/dL (3.2-5.0); Alkaline Phosphatase 88 U/L (45-117); Anion Gap 6 (5-15); BUN 38 mg/dL (7-18); BUN/Creat Ratio 20.9 RATIO (10-20); Calcium,Total 8.3 mg/dL (8.5-10.1); Chloride 107 mmol/L (98-107); Creatinine, Serum 1.82 mg/dL (0.70-1.30); EST Glomerular Filtration Rate 38 mL/min (>60); Est Glom Filt Rate - Afr Amer 46 mL/min (>60); Estimated Creatinine Clearance 27.24 ml/min; Globulin 4.4 g/dL (2.2-4.2); Glucose 329 mg/dL (74-106); Potassium 5.5 mmol/L (3.5-5.1); Protein, Total 6.2 g/dL (6.4-8.2); Sodium Level 137 mmol/L (136-145)
[2021-02-11] MEDS: Ipratropium/Albuterol Sulfate 3 ML AMPUL.NEB INHALATION ×3 (07:44→19:28)
--- NOTE | 2021-02-11 09:56 | CASEMGMT ---
FRANK order placed with aide added per pt request. [facility] at [facility] aware and RN CM to update her with d/c date. Scott CAMERON CM
[2021-02-11] MEDS: Amiodarone 200 MG Tablet PO ×2 (10:11→21:53)
[2021-02-11] MEDS: Azithromycin 250 MG Tablet 500 MG PO (10:11)
--- NOTE | 2021-02-11 10:59 | PCM.PN.CARD ---
Documented by User: FREDDY Diana 02/11/21 11:07 Subjective Subjective Patient was seen and examined. He is in normal sinus rhythm. Heart rate is controlled. Patient denies any worsening shortness of breath. He is feeling somewhat better. Objective Data Vital Signs: Vital Signs Temp Pulse Resp BP Pulse Ox 98.4 F 72 16 132/66 H 99 02/11/21 08:50 02/11/21 08:50 02/11/21 08:50 02/11/21 08:50 02/11/21 08:50 Oxygen Flow Rate (L/min) 2.5 Oxygen Delivery Method Nasal Cannula Weight: 170 lb 3.2 oz Body Mass Index (BMI) 26.3 Intake & Output: Intake and Output for Last 24 Hours 02/09/21 02/10/21 02/11/21 23:59 23:59 23:59 Intake Total 790.29 / 813.62 1006.41 / 1006.41 Output Total 225 / 225 900 / 900 200 / 200 Balance 565.29 / 588.62 106.41 / 106.41 -200 / -200 Lab / Micro Data Result Diagrams: 02/11/21 06:25 02/11/21 06:25 Labs: Laboratory Results - last 24 hr 02/11/21 06:25: WBC 9.7, RBC 2.77 L, Hgb 8.8 L, Hct 28.5 L, MCV 102.9 H, MCH 31.8, MCHC 30.9 L, RDW Std Deviation 56.0 H, RDW Coeff of Ancelmo 14.8 H, Plt Count 357, MPV 10.3, Immature Gran % (Auto) 0.700, Neut % (Auto) 93.3 H, Lymph % (Auto) 4.6 L, [place] % (Auto) 1.4, Eos % (Auto) 0.0, Baso % (Auto) 0.0, Absolute Neuts (auto) 9.1 H, Absolute Lymphs (auto) 0.45 L, Nucleated RBC % 0, Differential Comment SCANNED, Hypochromasia 1+ 02/11/21 06:25: Sodium 137, Potassium 5.5 H, Chloride 107, Carbon Dioxide 24.0, Anion Gap 6, BUN 38 H, Creatinine 1.82 H, Estim Creat Clear Calc 27.24, Est GFR (MDRD) Af Amer 46 L, Est GFR (MDRD) Non-Af 38 L, BUN/Creatinine Ratio 20.9 H, Glucose 329 H, Calcium 8.3 L, Total Bilirubin 0.40, AST 12 L, ALT 35, Alkaline Phosphatase 88, Total Protein 6.2 L, Albumin 1.8 L, Globulin 4.4 H, Albumin/Globulin Ratio 0.4 L Micro: Microbiology 02/09/21 16:11 Blood Culture (Wb) - Left Wrist Blood Culture - Preliminary Cardiology Labs/Tests 02/11/21 06:25: WBC 9.7, RBC 2.77 L, Hgb 8.8 L, Hct 28.5 L, MCV 102.9 H, MCH 31.8, MCHC 30.9 L, Plt Count 357, MPV 10.3, Immature Gran % (Auto) 0.700, Neut % (Auto) 93.3 H, Lymph % (Auto) 4.6 L, [place] % (Auto) 1.4, Eos % (Auto) 0.0, Baso % (Auto) 0.0, Absolute Neuts (auto) 9.1 H, Nucleated RBC % 0 02/11/21 06:25: Sodium 137, Potassium 5.5 H, Chloride 107, Carbon Dioxide 24.0, Anion Gap 6, BUN 38 H, Creatinine 1.82 H, Est GFR (MDRD) Af Amer 46 L, Est GFR (MDRD) Non-Af 38 L, BUN/Creatinine Ratio 20.9 H, Glucose 329 H, Calcium 8.3 L, Total Bilirubin 0.40 Rhythm: SR with episodes of PAF Physical Exam Narrative Elderly man, acutely ill looking, chronically ill-appearing, weak appearing, dyspneic at rest, restless and irritable. Resp normal respiratory effort and no use of accessory muscles Auscultation: clear to auscultation bilaterally Cardio regular rate, regular rhythm, S1 normal heart sound, S2 normal heart sound, no murmurs, no rub, no gallops, no JVD and peripheral pulses 2+ throughout Jugular Venous Distention: JVD GI soft to palpation and non-tender Extremity no pedal edema Assessment & Plan Assessment/Plan (1) PAF (paroxysmal atrial fibrillation): (2) Essential (primary) hypertension: (3) Hyperlipidemia: QUALIFIERS: Qualified Code(s): E78.00 - Pure hypercholesterolemia, unspecified; E78.00 - Pure hypercholesterolemia, unspecified; E78.0 - Pure hypercholesterolemia PLAN: pt has returned to SR, recommend that he be d/c home on amiodarone with a tapering dose. 200 mg BID for 14 days decrease to 200 mg QD. He does have a CHADVASC of 4, Recommend that he be d/c home on Eliquis at 2.5 mg BID. Recommend close monitoring of his Hgb as he is anemic. with his lower BP readings, do not feel that Pt should be on a BB Charges/Coding Visit Charges Inpatient E&M: 29964 Subs Hosp L3 Documented by User: Dr. Whitney Ambrose MD 02/11/21 13:04 Subjective Subjective This patient seen valuated today at bedside Feeling better still having shortness of breath but no symptoms of chest pain tomorrow Lab / Micro Data Result Diagrams: 02/11/21 06:25 02/11/21 06:25 Physical Exam Narrative This patient seen and evaluated and examined today at bedside along with the midlevel and the nursing staff He is alert orientated gambling monitor showed underlying normal sinus rhythm Cardiac examination S1-S2 regular, there is no systolic or diastolic murmur, no pericardial rub Chest examination bilateral mild expiratory wheeze with rales Examination of lower extremity no clubbing no cyanosis no lower extremity edema Central nervous system exam no focal neurological deficit noted. Assessment & Plan Assessment/Plan (1) PAF (paroxysmal atrial fibrillation): (2) Essential (primary) hypertension: (3) Hyperlipidemia: QUALIFIERS: Qualified Code(s): E78.00 - Pure hypercholesterolemia, unspecified; E78.00 - Pure hypercholesterolemia, unspecified; E78.0 - Pure hypercholesterolemia (4) COPD exacerbation: (5) Chronic kidney disease, stage III (moderate): QUALIFIERS: Chronic kidney disease stage 3 subtype: stage 3a (GFR 45-59) Qualified Code(s): N18.31 - Chronic kidney disease, stage 3a (6) History of CVA (cerebrovascular accident): (7) Nonobstructive atherosclerosis of coronary artery: (8) Carotid arterial disease: PLAN: This patient with multiple medical comorbidities On this admission he had symptoms shortness of breath, palpitation with paroxysmal A. fib with RVR converted to normal sinus rhythm. I reviewed the current evaluation, current data in the hospital reviewed the cardiac telemetry and the current lab and discussed with the medical team and agree with the current documentation by the midlevel Cardiac recommendations; 1. We will continue on anticoagulation using Eliquis based on the creatinine clearance which is 2.5 mg twice daily Risk assessment according [id number] Vasc score is high. Patient remains in sinus rhythm 2. Patient to follow-up with her primary automatic die cutting machine operator, Dr. Mcmanus for continuation of cardiac care.
[2021-02-11] MEDS: APIXABAN 2.5 MG TABLET PO ×2 (11:42→21:53)
[2021-02-11] MEDS: guaiFENesin 1,200 MG Tablet 1200 MG PO ×2 (11:42→21:54)
--- NOTE | 2021-02-11 12:28 | CASEMGMT ---
Addendum entered by Darcy Mcgowan 02/11/21 16:15: Kellie at [facility] updated pt staying till tomorrow, voices understanding. Green sheet left on chart for HHC/O2. Scott CAMERON CM Addendum entered by Darcy Mcgowan 02/11/21 14:45: Per Dr. Cox, pt is now staying at least until tomorrow d/t new DM, elevated blood sugar and pt also qualified for 2L nc w/ exertion. Call to daughter to update on discharge planning and O2 need, voices understanding and states no preference for DME company for pt. Daughter states no concerns with pt going home at discharge. Daughter states she was unable to find WW at pt home and Emily, PCU clinical mine manager, aware, voices understanding. Daughter aware that Dr. Cox will touch base tomorrow. Daughter voices no further questions/concerns/needs. Scott CAMERON CM Addendum entered by Darcy Mcgowan 02/11/21 12:32: Kellie at [facility] updated on pt discharge, voices understanding. Scott CAMERON CM Original Note: This RN CM to room and pt updated on d/c and resumption of HHC with aide added, voices understanding. Pt states his daughter is verifying that his walker is at home and he states he would like Nicolette CAMERON to go over d/c instructions/meds with daughter prior to discharge. Pt states his daughter will be doing his meds from now on. Nicolette CAMERON updated, voices understanding and states she will also do a room air pulse on pt has he has been on 2L but pt does not even have nasal cannula in either nostril at this time and pt is not SOB at this time. CM to follow. Scott CAMERON CM
--- NOTE | 2021-02-11 13:00 | PCM.DC ---
Discharge Instructions Diet Discharge Diet: Low fat / Low cholesterol and 2000 mg Sodium Diet Activity Discharge Activity: Return to Normal Activity Follow Up Care Test Results: Test results from this visit will be discussed in further detail at your follow-up appointment, if applicable. Discharge Plan Admission Admit Date/Time: 02/10/21 06:31 Primary Reason for Your Visit: Acute COPD exacerbation, A. fib with RVR, Type DM, newly diagnosed Attending Provider: Rosa Cox Primary Care Provider: Derek Singh Chi Consulting Providers: Carlos Eduardo Clemons ; Shade Mcmanus ; Nadeem Chowdhury ; Jaden Soria ; Marlo Bustamante ; Whitney Ambrose ; Eduardo Ma ; Ruy Candelaria ; Santiago Reeves ; Ron Reno ; Isaiah Kamara CORRECTIVE THERAPY AIDE ; Juanis Duarte NP ; Isidra Harden PA Instructions Patient Instructions: Diabetes: Caring for Your Body, Diabetes: Ways to Take Medicine, Diabetes: My Exam and Test Results Additional Instructions / Restrictions: Take note of change use your medications. Monitor your blood sugars 3 times a day. You have to be on a low calorie diet. You should follow-up with your primary care doctor in 1-2 weeks with blood glucose reading. Discharge Orders/Prescriptions Prescriptions: New azithromycin 250 mg Tablet 500 mg PO DAILY 3 Days Qty: 6 RF: 0 amiodarone 200 mg Tablet 200 mg PO BID 13 Days Qty: 26 RF: 0 amiodarone 200 mg Tablet 200 mg PO DAILY 30 Days Qty: 30 RF: 0 Mucus Relief ER 1,200 mg Tablet Extended Release 12hr 1,200 mg PO BID 5 Days Qty: 10 RF: 0 Eliquis 2.5 mg Tablet 2.5 mg PO BID 30 Days Qty: 60 RF: 0 Continued mirtazapine 15 mg tablet 7.5 mg PO QHS RF: 0 acetaminophen 325 MG tablet 650 mg PO Q4H PRN PRN (Reason: Mild Pain (0-3/10)/Headache) RF: 0 atorvastatin 40 MG tablet 40 mg PO QHS Qty: 60 RF: 0 tamsulosin [Flomax] 0.4 mg capsule 0.4 mg PO DINNER RF: 0 Discontinued lisinopril 20 MG tablet 20 mg PO DAILY Qty: 60 RF: 0 ciprofloxacin HCl [Cipro] 250 mg tablet 250 mg PO BID RF: 0 metoprolol tartrate 50 mg tablet 25 mg PO BID RF: 0 Eliquis 5 mg tablet 5 mg PO BID RF: 0 Other Ambulatory Orders: Glucometer (Routine) Location: None Selected Ordered By: Dr. Rosa Cox Referrals / Follow Up: Derek Singh Chi, MD [Primary Care Provider] - Isaiah Kamara NP, CORRECTIVE THERAPY AIDE-C [Nurse Practitioner] - ([facility] Isaiah Kamara NP 03/25/21 at 2:30p) Disposition Disposition (needs filled in before D/C Order can be placed): Home Health Service
[2021-02-11 13:31] LABS: Hematocrit 31.6 % (40-54); Hemoglobin 9.6 g/dL (13.0-16.5)
[2021-02-11 13:42] LABS: Hemoglobin A1c 7.3 % (3.8-5.6)
[2021-02-11 14:03] LABS: Anion Gap 9 (5-15); BUN 39 mg/dL (7-18); BUN/Creat Ratio 19.8 RATIO (10-20); Calcium,Total 8.5 mg/dL (8.5-10.1); Chloride 104 mmol/L (98-107); Creatinine, Serum 1.97 mg/dL (0.70-1.30); EST Glomerular Filtration Rate 34 mL/min (>60); Est Glom Filt Rate - Afr Amer 42 mL/min (>60); Estimated Creatinine Clearance 25.16 ml/min; Glucose 435 mg/dL (74-106); Iron 43 ug/dL (65-175); Iron Binding Capacity,Total 178 ug/dL (250-450); PERCENT IRON SATURATION 24.2 % (15.0-55.0); Potassium 5.2 mmol/L (3.5-5.1); Sodium Level 135 mmol/L (136-145)
[2021-02-11] MEDS: 0.9% Normal Saline 1,000 ML 100 ML IV (15:30)
[2021-02-11] MEDS: Glimepiride 1 MG Tablet PO (16:35)
[2021-02-11] MEDS: Tamsulosin HCl 0.4 MG Capsule PO (16:37)
[2021-02-11 16:51] LABS: Bedside Glucose 492 mg/dL (70-110)
--- NOTE | 2021-02-11 17:08 | PCM.PN.HOSP ---
Subjective Subjective Patient was seen and examined. Patient blood sugars are uncontrolled. HbA1c is 9.3 Objective Data Objective Data Vital Signs: Vital Signs Temp Pulse Resp BP Pulse Ox 98.4 F 79 19 H 123/64 H 100 02/11/21 16:44 02/11/21 16:44 02/11/21 16:44 02/11/21 16:44 02/11/21 16:44 Oxygen Flow Rate (L/min) [ 2 AMBULATING with Oxygen #1] Oxygen Flow Rate (L/min) 2 Oxygen Delivery Method Nasal Cannula Weight: 77.201 kg Body Mass Index (BMI) 26.3 Intake & Output: Intake and Output for Last 24 Hours 02/09/21 02/10/21 02/11/21 23:59 23:59 23:59 Intake Total 790.29 / 813.62 1006.41 / 1006.41 420 / 420 Output Total 225 / 225 900 / 900 400 / 400 Balance 565.29 / 588.62 106.41 / 106.41 Lab / Micro Data Result Diagrams: 02/11/21 13:13 02/11/21 13:13 Labs: Laboratory Results - last 24 hr 02/11/21 06:25: WBC 9.7, RBC 2.77 L, Hgb 8.8 L, Hct 28.5 L, MCV 102.9 H, MCH 31.8, MCHC 30.9 L, RDW Std Deviation 56.0 H, RDW Coeff of Ancelmo 14.8 H, Plt Count 357, MPV 10.3, Immature Gran % (Auto) 0.700, Neut % (Auto) 93.3 H, Lymph % (Auto) 4.6 L, [place] % (Auto) 1.4, Eos % (Auto) 0.0, Baso % (Auto) 0.0, Absolute Neuts (auto) 9.1 H, Absolute Lymphs (auto) 0.45 L, Nucleated RBC % 0, Differential Comment SCANNED, Hypochromasia 1+ 02/11/21 06:25: Sodium 137, Potassium 5.5 H, Chloride 107, Carbon Dioxide 24.0, Anion Gap 6, BUN 38 H, Creatinine 1.82 H, Estim Creat Clear Calc 27.24, Est GFR (MDRD) Af Amer 46 L, Est GFR (MDRD) Non-Af 38 L, BUN/Creatinine Ratio 20.9 H, Glucose 329 H, Calcium 8.3 L, Total Bilirubin 0.40, AST 12 L, ALT 35, Alkaline Phosphatase 88, Total Protein 6.2 L, Albumin 1.8 L, Globulin 4.4 H, Albumin/Globulin Ratio 0.4 L 02/11/21 06:25: Hemoglobin A1c 7.3 H 02/11/21 13:13: Hgb 9.6 L, Hct 31.6 L 02/11/21 13:13: Sodium 135 L, Potassium 5.2 H, Chloride 104, Carbon Dioxide 22.0, Anion Gap 9, BUN 39 H, Creatinine 1.97 H, Estim Creat Clear Calc 25.16, Est GFR (MDRD) Af Amer 42 L, Est GFR (MDRD) Non-Af 34 L, BUN/Creatinine Ratio 19.8, Glucose 435 H, Calcium 8.5, Iron 43 L, TIBC 178 L, Iron Saturation 24.2 02/11/21 16:34: POC Glucose 492 H* Micro: Microbiology 02/09/21 16:11 Blood Culture (Wb) - Left Wrist Bacteria Detection (PCR) - Final 02/09/21 16:11 Blood Culture (Wb) - Left Wrist Blood Culture - Preliminary 02/09/21 16:28 Nasal Secretion SARS-CoV-2 Antigen (Rapid) - Final Physical Exam Narrative Physical exam: General: Alert, Oriented x3, Cooperative, No apparent distress, Well developed, on 2 L of oxygen HEENT: Atraumatic Oral: Moist Mucosa Neck: Supple Lungs: Diminished to auscultation, scattered wheezes Cardiovascular: HS I+II, regular, no murmurs Abdomen: Bowel Sounds Present, Soft, Non Tender Extremities: No edema Assessment & Plan Assessment/Plan (1) PAF (paroxysmal atrial fibrillation): (2) Essential (primary) hypertension: (3) Hyperlipidemia: QUALIFIERS: Qualified Code(s): E78.00 - Pure hypercholesterolemia, unspecified; E78.00 - Pure hypercholesterolemia, unspecified; E78.0 - Pure hypercholesterolemia (4) Atrial fibrillation with rapid ventricular response: (5) COPD exacerbation: (6) Chronic kidney disease, stage III (moderate): QUALIFIERS: Chronic kidney disease stage 3 subtype: stage 3a (GFR 45-59) Qualified Code(s): N18.31 - Chronic kidney disease, stage 3a (7) Acute kidney injury: (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 A. fib with RVR, [id number] score of 4, now in normal sinus rhythm 2D echo shows EF of 55 to 60%, normal left ventricular systolic function. Continue on amiodarone 2. Acute COPD exacerbation, improving, continue on breathing treatments, Switch to p.o. prednisone and continue azithromycin 3. Hypoxia secondary to #2, will wean off for SPO2 more than 94% 4. ELISEO on CKD stage IIIa, admitting creatinine is 2.01, baseline creatinine is between 1.3-1.5 Creatinine is still elevated, will start on gentle IV fluids, repeat blood work in a.m. 5. Type II DM, newly diagnosed, HbA1c 7.3, blood sugars uncontrolled Will start on insulin sliding scale as well as glimepiride 6. Rest of chronic medical conditions are stable - Hypertension, history of CVA, hyperlipidemia, BPH Continue on Flomax, atorvastatin, Remeron, trazodone Charges/Coding Visit Charges Inpatient E&M: 40029 Subs Hosp L2
[2021-02-11] MEDS: Insulin Lispro 100 UNIT/ML INSULN.PEN 10 UNIT SC (17:21)
[2021-02-11] MEDS: Mirtazapine 15 MG Tablet 7.5 MG PO (21:53)
[2021-02-11] MEDS: Atorvastatin Calcium 40 MG Tablet PO (21:53)
[2021-02-11] MEDS: Insulin Lispro 100 UNIT/ML INSULN.PEN SC (21:56)
[2021-02-11 22:00] LABS: Bedside Glucose 370 mg/dL (70-110)
[2021-02-12] VITALS (11 sets, daily range): BP systolic 118–154; BP diastolic 56–75; PULSE 68–92; RESP 16–22; TEMP 36.4–36.8; O2SAT 94–100
[2021-02-12] MEDS: 0.9% Normal Saline 1,000 ML 100 ML IV (00:27)
[2021-02-12] MEDS: Ipratropium/Albuterol Sulfate 3 ML AMPUL.NEB INHALATION ×3 (03:51→11:05)
[2021-02-12 06:33] LABS: Absolute Lymphocyte Count 0.49 X10^3/uL (0.83-4.51); Absolute Neutrophil Count 9.3 X10^3/uL (2.0-7.7); Basophil# 0.01 X10^3/uL; Basophil% 0.1 % (0-1); Hematocrit 29.2 % (40-54); Hemoglobin 8.7 g/dL (13.0-16.5); Lymphocyte # 0.49 X10^3/ul (0.83-4.51); Lymphocyte % 4.7 % (19-41); Mean Corp Hgb Conc 29.8 g/dL (32-36); Mean Corpuscular Hgb 31.1 pg (27.0-32.0); Mean Corpuscular Volume 104.3 fL (80-94); Mean Platelet Vol. 9.8 fl (6.2-12.0); Monocyte# 0.48 X10^3/uL; Monocyte% 4.6 % (0-10); NRBC Flagged by Analyzer 0 % (0-5); Neutrophil # 9.28 X10^3/uL (2.7-7.7); Neutrophil % 89.9 % (47-70); POSITIVE DIFFERENTIAL YES; Platelet Count 370 K/mm3 (150-450); RBC Distribution Width CV 14.8 % (11.6-14.6); White Blood Count 10.3 K/mm3 (4.4-11.0)
[2021-02-12 06:45] LABS: Differential Indicated SCAN CRITERIA MET
[2021-02-12] MEDS: Insulin Lispro 100 UNIT/ML INSULN.PEN SC ×2 (06:52→10:57)
[2021-02-12 07:02] LABS: Anisocytosis 1+; Differential Comment SCANNED; Macrocytosis 1+
[2021-02-12 07:06] LABS: Bedside Glucose 165 mg/dL (70-110)
[2021-02-12 07:17] LABS: ALB/GLOB Ratio 0.4 RATIO (0.9-2.4); AST(SGOT) 13 U/L (15-37); Alanine Aminotransfer ALT/SGPT 36 U/L (16-61); Albumin, Serum 1.8 g/dL (3.2-5.0); Alkaline Phosphatase 86 U/L (45-117); Anion Gap 4 (5-15); BUN 39 mg/dL (7-18); BUN/Creat Ratio 23.9 RATIO (10-20); Calcium,Total 8.3 mg/dL (8.5-10.1); Chloride 109 mmol/L (98-107); Creatinine, Serum 1.63 mg/dL (0.70-1.30); EST Glomerular Filtration Rate 43 mL/min (>60); Est Glom Filt Rate - Afr Amer 52 mL/min (>60); Estimated Creatinine Clearance 30.41 ml/min; Globulin 4.1 g/dL (2.2-4.2); Glucose 189 mg/dL (74-106); Potassium 5.2 mmol/L (3.5-5.1); Protein, Total 5.9 g/dL (6.4-8.2); Sodium Level 138 mmol/L (136-145)
[2021-02-12] MEDS: predniSONE 20 MG Tablet 40 MG PO (07:52)
[2021-02-12] MEDS: Azithromycin 250 MG Tablet 500 MG PO (07:52)
[2021-02-12] MEDS: APIXABAN 2.5 MG TABLET PO (07:52)
[2021-02-12] MEDS: Amiodarone 200 MG Tablet PO (07:52)
[2021-02-12] MEDS: Glimepiride 1 MG Tablet PO (07:52)
[2021-02-12] MEDS: guaiFENesin 1,200 MG Tablet 1200 MG PO (07:52)
[2021-02-12 11:10] LABS: Bedside Glucose 311 mg/dL (70-110)
--- NOTE | 2021-02-12 14:12 | DS.PCM_ITS ---
Providers Date of Admission: 02/10/21 Date of Discharge: 02/12/21 Primary Care Physician: Dr. Derek Singh MD Consultations 02/09/21 19:54 Consult: Cardiology Routine Consulting Provider: [facility] Reason for Consult: Atrial fibrillation with rapid ventricular response EMERGENT Consult: No MD Notified: Yes Date Notified: 02/09/21 Time Notified: 19:55 Method of Notification: Verbal Reason For Visit: ATRIAL FIBRILLATION Diagnosis Discharge Diagnosis (1) PAF (paroxysmal atrial fibrillation): Status: Chronic Code(s): I48.0 - Paroxysmal atrial fibrillation (2) Essential (primary) hypertension: Status: Chronic Code(s): I10 - Essential (primary) hypertension (3) Hyperlipidemia: Status: Chronic Code(s): E78.5 - Hyperlipidemia, unspecified Qualifiers: Qualified Code(s): E78.00 - Pure hypercholesterolemia, unspecified; E78. 00 - Pure hypercholesterolemia, unspecified; E78.0 - Pure hypercholesterolemia (4) Atrial fibrillation with rapid ventricular response: Status: Resolved Code(s): I48.91 - Unspecified atrial fibrillation (5) COPD exacerbation: Status: Resolved Code(s): J44.1 - Chronic obstructive pulmonary disease with (acute) exacerbation (6) Chronic kidney disease, stage III (moderate): Status: Chronic Code(s): N18.30 - Chronic kidney disease, stage 3 unspecified Qualifiers: Chronic kidney disease stage 3 subtype: stage 3a (GFR 45-59) Qualified Code(s): N18.31 - Chronic kidney disease, stage 3a (7) Acute kidney injury: Status: Acute Code(s): N17.9 - Acute kidney failure, unspecified (8) Type 2 DM with CKD and hypertension: Status: Acute Code(s): E11.22 - Type 2 diabetes mellitus with diabetic chronic kidney disease; I12.9 - Hypertensive chronic kidney disease with stage 1 through stage 4 chronic kidney disease, or unspecified chronic kidney disease (9) Hyperkalemia: Status: Acute Code(s): E87.5 - Hyperkalemia Medications at Discharge Home Medications acetaminophen 650 mg PO Q4H PRN PRN tab 03/22/18 atorvastatin 40 mg PO QHS #60 tab 03/22/18 mirtazapine 15 mg tablet 7.5 mg PO QHS tablet 08/19/20 tamsulosin [Flomax] 0.4 mg PO DINNER 01/17/21 amiodarone 200 mg PO BID 13 Days #26 tab 02/11/21 amiodarone 200 mg PO DAILY 30 Days #30 tab 02/11/21 apixaban [Eliquis] 2.5 mg PO BID 30 Days #60 tab 02/11/21 guaifenesin [Mucus Relief ER] 1,200 mg PO BID 5 Days #10 tab 02/11/21 azithromycin 500 mg PO DAILY #0 tab 02/12/21 azithromycin 500 mg PO DAILY 2 Days #2 tab 02/12/21 glimepiride 2 mg PO BREAKFAST 30 Days #60 tab 02/12/21 prednisone See Taper PO DAILY #30 tab 02/12/21 Hospital Course Operations None Procedures None Summary of Care Provided Minutes Spent on Discharge: 55 Hospital Course: 85-year-old male with past medical history of hypertension, hyperlipidemia, CAD who presented with generalized weakness and found to be in A. fib with RVR. Patient was admitted to ICU and managed on Cardizem bolus and drip. His heart rate became controlled. He was in normal sinus rhythm. Cardiology was consulted. Patient was also found to have acute COPD exacerbation and managed on breathing treatment, azithromycin and IV Solu- Medrol. Patient continued to improve. He was transferred out of ICU 02/11/21. He however was found to have significant dyspnea and elevated blood sugars on prednisone. His HbA1c was 7.3. Patient has no previous diagnosis of type II DM. This is a new diagnosis for him. He was started on Amaryl and discharged on Amaryl 2 mg p.o. daily. He was also discharged on amiodarone taper. 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 Patient was asked to follow-up with his primary care doctor. He was given a prescription for glucometer and asked to monitor his blood sugars. Physical Exam Narrative Physical exam: General: Alert, Oriented x3, Cooperative, No apparent distress, Well developed, on 2 L of oxygen HEENT: Atraumatic Oral: Moist Mucosa Neck: Supple Lungs: Diminished to auscultation, scattered wheezes Cardiovascular: HS I+II, regular, no murmurs Abdomen: Bowel Sounds Present, Soft, Non Tender Extremities: No edema Weight / BMI Weight Weight: 76.4 kg Body Mass Index (BMI) 26.3 ABG / Lab / Microbiology Data Result Diagrams: 02/12/21 06:15 02/12/21 06:15 Laboratory: Laboratory Results - last 24 hr 02/11/21 16:34: POC Glucose 492 H* 02/11/21 21:50: POC Glucose 370 H 02/12/21 06:15: WBC 10.3, RBC 2.80 L, Hgb 8.7 L, Hct 29.2 L, MCV 104.3 H, MCH 31.1, MCHC 29.8 L, RDW Std Deviation 57.0 H, RDW Coeff of Ancelmo 14.8 H, Plt Count 370, MPV 9.8, Immature Gran % (Auto) 0.700, Neut % (Auto) 89.9 H, Lymph % (Auto) 4.7 L, [place] % (Auto) 4.6, Eos % (Auto) 0.0, Baso % (Auto) 0.1, Absolute Neuts (auto) 9.3 H, Absolute Lymphs (auto) 0.49 L, Nucleated RBC % 0, Differential Comment SCANNED, Anisocytosis 1+, Macrocytosis 1+ 02/12/21 06:15: Sodium 138, Potassium 5.2 H, Chloride 109 H, Carbon Dioxide 25. 0, Anion Gap 4 L, BUN 39 H, Creatinine 1.63 H, Estim Creat Clear Calc 30.41, Est GFR (MDRD) Af Amer 52 L, Est GFR (MDRD) Non-Af 43 L, BUN/Creatinine Ratio 23.9 H , Glucose 189 H, Calcium 8.3 L, Total Bilirubin 0.30, AST 13 L, ALT 36, Alkaline Phosphatase 86, Total Protein 5.9 L, Albumin 1.8 L, Globulin 4.1, Albumin/Globulin Ratio 0.4 L 02/12/21 06:51: POC Glucose 165 H 02/12/21 10:56: POC Glucose 311 H Microbiology: Microbiology 02/09/21 16:28 Blood Culture (Wb) - Anticubital Left Blood Culture - Preliminary No growth in 48 hours. 02/09/21 16:11 Blood Culture (Wb) - Left Wrist Bacteria Detection (PCR) - Final 02/09/21 16:11 Blood Culture (Wb) - Left Wrist Blood Culture - Preliminary Presumptive Micrococcus spp. 02/09/21 16:28 Nasal Secretion SARS-CoV-2 Antigen (Rapid) - Final D/C Instructions Discharge Diet: Low fat / Low cholesterol and 2000 mg Sodium Diet Meaningful Use Info Meaningful Use Diagnoses (Choose all that apply): None applicable Discharge Plan Admission Admit Date/Time: 02/10/21 06:31 Primary Reason for Your Visit: Acute COPD exacerbation, A. fib with RVR, Type DM, newly diagnosed Attending Provider: Rosa Cox Primary Care Provider: Derek Singh Chi Consulting Providers: Carlos Eduardo Clemons ; Shade Mcmanus ; Nadeem Chowdhury ; Jaden Soria ; Marlo Bustamante ; Whitney Ambrose ; Eduardo Ma ; Ruy Candelaria ; Santiago Reeves ; Ron Reno ; Isaiah Kamara BOSOM PRESSER ; Juanis Duarte NP ; Isidra Harden PA Instructions Patient Instructions: Diabetes: Caring for Your Body, Diabetes: Ways to Take Medicine, Diabetes: My Exam and Test Results Additional Instructions / Restrictions: Take note of change use your medications. Monitor your blood sugars 3 times a day. You have to be on a low calorie diet. You should follow-up with your primary care doctor in 1-2 weeks with blood glucose reading. Discharge Orders/Prescriptions Prescriptions: New amiodarone 200 mg Tablet 200 mg PO BID 13 Days Qty: 26 RF: 0 amiodarone 200 mg Tablet 200 mg PO DAILY 30 Days Qty: 30 RF: 0 Mucus Relief ER 1,200 mg Tablet Extended Release 12hr 1,200 mg PO BID 5 Days Qty: 10 RF: 0 Eliquis 2.5 mg Tablet 2.5 mg PO BID 30 Days Qty: 60 RF: 0 glimepiride 1 mg Tablet 2 mg PO BREAKFAST 30 Days Qty: 60 RF: 0 azithromycin 500 mg tablet 500 mg PO DAILY 2 Days Qty: 2 RF: 0 azithromycin 250 mg Tablet 500 mg PO DAILY Qty: 0 RF: 0 prednisone 10 mg tablet See Taper mg PO DAILY Qty: 30 RF: 0 Continued mirtazapine 15 mg tablet 7.5 mg PO QHS RF: 0 acetaminophen 325 MG tablet 650 mg PO Q4H PRN PRN (Reason: Mild Pain (0-3/10)/Headache) RF: 0 atorvastatin 40 MG tablet 40 mg PO QHS Qty: 60 RF: 0 tamsulosin [Flomax] 0.4 mg capsule 0.4 mg PO DINNER RF: 0 Discontinued lisinopril 20 MG tablet 20 mg PO DAILY Qty: 60 RF: 0 ciprofloxacin HCl [Cipro] 250 mg tablet 250 mg PO BID RF: 0 metoprolol tartrate 50 mg tablet 25 mg PO BID RF: 0 Eliquis 5 mg tablet 5 mg PO BID RF: 0 Other Ambulatory Orders: Glucometer (Routine) Location: None Selected Ordered By: Dr. Rosa Cox Referrals / Follow Up: Derek Singh Chi, MD [Primary Care Provider] - Isaiah Kamara NP, BOSOM PRESSER-C [Nurse Practitioner] - ([facility] Isaiah Kamara NP 03/25/21 at 2:30p) Disposition Disposition (needs filled in before D/C Order can be placed): Home Health Service Charges/Coding Visit Charges Inpatient E&M: 25842 Disch Hosp
--- NOTE | 2021-02-14 16:14 | CASEMGMT ---
NISHA BERMAN Discharge Follow-up Phone Call: PIYUSHMeghan: Gissel Strata: 3 Call Date: 02/14/21 Discharge Date:02/12/21 Time of Call: 1614 Admitting Diagnosis: Afib RVR, new onset DM This NISHA BERMAN contacted pt for discharge follow-up. Pt states he is doing alright and reports his occupational therapist was present from home health. Pt states he has also received a visit from the home health nurse. Pt denied any questions or concerns at this time. Chiki Cortez RN CM
== END 2021-02-12 15:15 | disposition home health service (06) | DRG 309 ==
LOC: ED 18:31 → ICU 02-10 01:50 → PCU 02-11 10:26
PROVIDERS: Admitting Provider Internal Medicine; Emergency Provider Emergency Medicine; PCP Family Medicine Geriatric Medicine; Visit Provider Internal Medicine
DX: I48.0 Paroxysmal atrial fibrillation (principal); N17.9 Acute kidney failure, unspecified; J44.1 Chronic obstructive pulmonary disease with (acute) exacerbation; E78.5 Hyperlipidemia, unspecified; I12.9 Hypertensive chronic kidney disease with stage 1 through stage 4 chronic kidney disease, or unspecified chronic kidney disease; N18.31 Chronic kidney disease, stage 3a; E11.22 Type 2 diabetes mellitus with diabetic chronic kidney disease; F03.90 Unspecified dementia, unspecified severity, without behavioral disturbance, psychotic disturbance, mood disturbance, and anxiety; I25.10 Atherosclerotic heart disease of native coronary artery without angina pectoris; R09.02 Hypoxemia; N40.0 Benign prostatic hyperplasia without lower urinary tract symptoms; E11.51 Type 2 diabetes mellitus with diabetic peripheral angiopathy without gangrene; F17.210 Nicotine dependence, cigarettes, uncomplicated; E87.5 Hyperkalemia; Z79.899 Other long term (current) drug therapy; Z79.01 Long term (current) use of anticoagulants
CPT/HCPCS: 36415; 71045; 80048; 80053; 82962; 83036; 83540; 83550; 83605; 83735; 84100; 84443; 84484; 85014; 85018; 85025; 87040; 87149; 87426; 93005; 93306; 94640; 97802; 99251; 99285; 99406; J7030; A4216; G0463

== ENCOUNTER → 2021-04-18 15:35 | Outpatient (CLI) | payer MEDICARE, SELFPAY ==
[2021-04-18 17:17] LABS: Absolute Lymphocyte Count 1.86 X10^3/uL (0.83-4.51); Absolute Neutrophil Count 5.8 X10^3/uL (2.0-7.7); Basophil# 0.04 X10^3/uL; Basophil% 0.5 % (0-1); Eosinophil# 0.23 X10^3/uL; Eosinophils% 2.6 % (0-5); Hematocrit 34.2 % (40-54); Hemoglobin 10.2 g/dL (13.0-16.5); Lymphocyte # 1.86 X10^3/ul (0.83-4.51); Lymphocyte % 21.3 % (19-41); Mean Corp Hgb Conc 29.8 g/dL (32-36); Mean Corpuscular Hgb 29.9 pg (27.0-32.0); Mean Corpuscular Volume 100.3 fL (80-94); Monocyte# 0.71 X10^3/uL; Monocyte% 8.1 % (0-10); NRBC Flagged by Analyzer 0 % (0-5); Neutrophil # 5.82 X10^3/uL (2.7-7.7); Neutrophil % 66.8 % (47-70); POSITIVE MORPHOLOGY YES; Platelet Count 398 K/mm3 (150-450); RBC Distribution Width CV 19.1 % (11.6-14.6); RBC Distribution Width SD 70.3 fl (35.1-43.9); Red Blood Count 3.41 M/mm3 (4.6-6.2); White Blood Count 8.7 K/mm3 (4.4-11.0)
[2021-04-18 17:33] LABS: Differential Indicated SCAN CRITERIA MET
[2021-04-18 17:53] LABS: Vitamin D,25 Hydroxy 30.1 ng/mL
[2021-04-18 18:01] LABS: ALB/GLOB Ratio 0.7 RATIO (0.9-2.4); AST(SGOT) 8 U/L (15-37); Alanine Aminotransfer ALT/SGPT 13 U/L (16-61); Albumin, Serum 2.9 g/dL (3.2-5.0); Alkaline Phosphatase 94 U/L (45-117); Anion Gap 3 (5-15); BUN 15 mg/dL (7-18); BUN/Creat Ratio 9.7 RATIO (10-20); Calcium,Total 9.2 mg/dL (8.5-10.1); Chloride 109 mmol/L (98-107); Creatinine, Serum 1.55 mg/dL (0.70-1.30); EST Glomerular Filtration Rate 45 mL/min (>60); Est Glom Filt Rate - Afr Amer 55 mL/min (>60); Globulin 4.1 g/dL (2.2-4.2); Glucose 90 mg/dL (74-106); Potassium 4.5 mmol/L (3.5-5.1); Sodium Level 141 mmol/L (136-145); Thyroid Stim Hormone (TSH) 4.11 uIU/mL (0.358-3.74)
[2021-04-18 18:02] LABS: Platelet Estimate ADEQUATE (ADEQ)
[2021-04-18 18:03] LABS: Anisocytosis 1+; Ovalocyte RARE; Red Cell Morphology N CHROM NORMAL (NORM C&C)
== END ==
PROVIDERS: PCP Family Medicine Geriatric Medicine; Visit Provider Family Medicine Geriatric Medicine
DX: E11.65 Type 2 diabetes mellitus with hyperglycemia (principal); E55.9 Vitamin D deficiency, unspecified; I10 Essential (primary) hypertension
CPT/HCPCS: 36415; 80053; 82306; 84443; 85025

== ENCOUNTER → 2021-04-25 12:00 | Outpatient (CLI) | payer MEDICARE, SELFPAY ==
[2021-04-25 12:39] LABS: Absolute Lymphocyte Count 1.62 X10^3/uL (0.83-4.51); Absolute Neutrophil Count 4.9 X10^3/uL (2.0-7.7); Basophil# 0.04 X10^3/uL; Basophil% 0.5 % (0-1); Eosinophil# 0.32 X10^3/uL; Eosinophils% 4.2 % (0-5); Hematocrit 33.7 % (40-54); Hemoglobin 10.2 g/dL (13.0-16.5); Lymphocyte # 1.62 X10^3/ul (0.83-4.51); Mean Corp Hgb Conc 30.3 g/dL (32-36); Mean Corpuscular Hgb 30.1 pg (27.0-32.0); Mean Corpuscular Volume 99.4 fL (80-94); Mean Platelet Vol. 9.6 fl (6.2-12.0); Monocyte# 0.83 X10^3/uL; Monocyte% 10.8 % (0-10); NRBC Flagged by Analyzer 0 % (0-5); Neutrophil # 4.87 X10^3/uL (2.7-7.7); Neutrophil % 63.1 % (47-70); POSITIVE MORPHOLOGY YES; Platelet Count 327 K/mm3 (150-450); RBC Distribution Width CV 18.4 % (11.6-14.6); RBC Distribution Width SD 67.3 fl (35.1-43.9); RET-HE 35.7 pg (30-35); Red Blood Count 3.39 M/mm3 (4.6-6.2); Reticulocyte Count 1.71 % (0.5-1.5); White Blood Count 7.7 K/mm3 (4.4-11.0)
[2021-04-25 12:40] LABS: Differential Indicated SCAN CRITERIA MET
[2021-04-25 13:03] LABS: Anisocytosis 2+; Differential Comment SCANNED
[2021-04-25 13:38] LABS: Vitamin B12 472 pg/mL (211-911)
[2021-04-25 13:50] LABS: Anion Gap 6 (5-15); BUN 16 mg/dL (7-18); BUN/Creat Ratio 11.3 RATIO (10-20); Chloride 107 mmol/L (98-107); Creatinine, Serum 1.42 mg/dL (0.70-1.30); EST Glomerular Filtration Rate 50 mL/min (>60); Est Glom Filt Rate - Afr Amer 61 mL/min (>60); Ferritin 111 ng/mL (26-388); Glucose 103 mg/dL (74-106); Iron 34 ug/dL (65-175); Iron Binding Capacity,Total 304 ug/dL (250-450); PERCENT IRON SATURATION 11.2 % (15.0-55.0); Potassium 4.1 mmol/L (3.5-5.1); Sodium Level 140 mmol/L (136-145)
== END ==
PROVIDERS: PCP Family Medicine Geriatric Medicine; Visit Provider Family Medicine Geriatric Medicine
DX: D64.9 Anemia, unspecified (principal); I10 Essential (primary) hypertension
CPT/HCPCS: 36415; 80048; 82607; 82728; 82746; 83540; 83550; 85025; 85045

== ENCOUNTER → 2021-05-25 13:29 | Outpatient (CLI) | payer MEDICARE, SELFPAY ==
[2021-05-25 15:05] LABS: Absolute Lymphocyte Count 1.95 X10^3/uL (0.83-4.51); Absolute Neutrophil Count 4.9 X10^3/uL (2.0-7.7); Basophil# 0.04 X10^3/uL; Basophil% 0.5 % (0-1); Eosinophils% 7.3 % (0-5); Hematocrit 37.5 % (40-54); Hemoglobin 11.6 g/dL (13.0-16.5); Lymphocyte # 1.95 X10^3/ul (0.83-4.51); Lymphocyte % 23.6 % (19-41); Mean Corp Hgb Conc 30.9 g/dL (32-36); Mean Corpuscular Hgb 30.9 pg (27.0-32.0); Mean Platelet Vol. 9.8 fl (6.2-12.0); Monocyte# 0.77 X10^3/uL; Monocyte% 9.3 % (0-10); NRBC Flagged by Analyzer 0 % (0-5); Neutrophil # 4.87 X10^3/uL (2.7-7.7); Neutrophil % 58.8 % (47-70); Platelet Count 325 K/mm3 (150-450); RBC Distribution Width CV 16.9 % (11.6-14.6); RBC Distribution Width SD 62.4 fl (35.1-43.9); Red Blood Count 3.75 M/mm3 (4.6-6.2); White Blood Count 8.3 K/mm3 (4.4-11.0)
[2021-05-25 15:32] LABS: Anion Gap 6 (5-15); BUN 25 mg/dL (7-18); BUN/Creat Ratio 17.6 RATIO (10-20); Calcium,Total 9.3 mg/dL (8.5-10.1); Chloride 107 mmol/L (98-107); Creatinine, Serum 1.42 mg/dL (0.70-1.30); EST Glomerular Filtration Rate 50 mL/min (>60); Est Glom Filt Rate - Afr Amer 61 mL/min (>60); Glucose 91 mg/dL (74-106); Potassium 4.2 mmol/L (3.5-5.1); Sodium Level 140 mmol/L (136-145); Thyroid Stim Hormone (TSH) 4.84 uIU/mL (0.358-3.74)
== END ==
PROVIDERS: PCP Family Medicine Geriatric Medicine; Visit Provider Family Medicine Geriatric Medicine
DX: D50.9 Iron deficiency anemia, unspecified (principal); E03.9 Hypothyroidism, unspecified; N18.31 Chronic kidney disease, stage 3a
CPT/HCPCS: 36415; 80048; 84443; 85025

== ENCOUNTER 2021-07-06 14:08 | Outpatient (CLI) | payer MEDICARE, SELFPAY ==
[2021-07-06 17:54] LABS: Ferritin 34 ng/mL (26-388); Iron 41 ug/dL (65-175); Iron Binding Capacity,Total 315 ug/dL (250-450); Thyroid Stim Hormone (TSH) 2.37 uIU/mL (0.358-3.74)
[2021-07-06 18:09] LABS: Hematocrit 36.6 % (40-54); Hemoglobin 11.5 g/dL (13.0-16.5); Mean Corp Hgb Conc 31.4 g/dL (32-36); Mean Corpuscular Hgb 31.2 pg (27.0-32.0); Mean Corpuscular Volume 99.2 fL (80-94); Mean Platelet Vol. 10.3 fl (6.2-12.0); Platelet Count 296 K/mm3 (150-450); RBC Distribution Width CV 15.5 % (11.6-14.6); RBC Distribution Width SD 56.4 fl (35.1-43.9); Red Blood Count 3.69 M/mm3 (4.6-6.2); White Blood Count 7.4 K/mm3 (4.4-11.0)
== END 2021-07-06 23:59 | disposition home or self-care (01) ==
LOC: POLAB3 14:09
PROVIDERS: PCP Family Medicine Geriatric Medicine; Visit Provider Internal Medicine Nephrology
DX: N18.31 Chronic kidney disease, stage 3a (principal); D50.9 Iron deficiency anemia, unspecified; E03.9 Hypothyroidism, unspecified
CPT/HCPCS: 36415; 82043; 82570; 82728; 83540; 83550; 84443; 85027

== ENCOUNTER 2021-07-13 14:16 | Outpatient (CLI) | payer MEDICARE, SELFPAY ==
--- NOTE | 2021-07-13 14:21 | US_ITS ---
STUDY: RENAL ULTRASOUND - COMPLETE REASON FOR EXAM: Male, 85 years old. CKD TECHNIQUE: Ultrasound evaluation of the kidneys was performed with real-time and static echeverria-scale imaging. COMPARISON: None. FINDINGS: RIGHT KIDNEY: Normal location of the right kidney, which is normal in size. The right kidney measures 11.9 cm. There is a normal cortex of the right kidney. The renal cortex measures 1.6 cm. There is no right renal mass or cyst. There are no right renal calculi. There is no right hydronephrosis. DISTAL RIGHT URETER: There is non-visualization of the distal right ureter. There is no demonstrated right ureterovesical junction calculus. There is a visualized right ureteral jet. LEFT KIDNEY: Normal location of the left kidney, which is normal in size. The left kidney measures 10.9 cm. There is a normal cortex of the left kidney. The renal cortex measures 1.4 cm. There is no left renal mass or cyst. There is 15 mm left renal calculi. There is mild hydronephrosis of the left kidney. DISTAL LEFT URETER: There is non-visualization of the distal left ureter. There is no demonstrated left ureterovesical junction calculus. There is a visualized left ureteral jet. AORTA: There is obscuration of the abdominal aorta by overlying bowel gas I.V.C.: The IVC is obscured. BLADDER: The distended urinary bladder has a volume of 131ml. There is a normal wall thickness of the distended urinary bladder. There is no demonstrated mass within the urinary bladder. There are no demonstrated bladder calculi. US/Kidney and Bladder IMPRESSION: There is mild hydronephrosis of the left kidney. Electronically Signed: Mikael Beth MD at 15:36 EST ,
== END 2021-07-13 23:59 | disposition home or self-care (01) ==
LOC: US 14:20
PROVIDERS: PCP Family Medicine Geriatric Medicine; Referring Provider Internal Medicine Nephrology; Visit Provider Internal Medicine Nephrology
DX: N18.31 Chronic kidney disease, stage 3a (principal)
CPT/HCPCS: 76770

== ENCOUNTER 2021-09-02 10:23 | Outpatient (CLI) | payer MEDICARE, SELFPAY ==
[2021-09-02 12:41] LABS: Absolute Lymphocyte Count 2.08 X10^3/uL (0.83-4.51); Absolute Neutrophil Count 4.3 X10^3/uL (2.0-7.7); Basophil# 0.03 X10^3/uL; Basophil% 0.4 % (0-1); Eosinophil# 0.81 X10^3/uL; Eosinophils% 10.3 % (0-5); Hematocrit 40.9 % (40-54); Lymphocyte # 2.08 X10^3/ul (0.83-4.51); Lymphocyte % 26.4 % (19-41); Mean Corp Hgb Conc 31.8 g/dL (32-36); Mean Corpuscular Hgb 32.2 pg (27.0-32.0); Mean Corpuscular Volume 101.2 fL (80-94); Mean Platelet Vol. 9.8 fl (6.2-12.0); Monocyte# 0.68 X10^3/uL; Monocyte% 8.6 % (0-10); NRBC Flagged by Analyzer 0 % (0-5); Neutrophil # 4.25 X10^3/uL (2.7-7.7); Neutrophil % 53.8 % (47-70); Platelet Count 288 K/mm3 (150-450); RBC Distribution Width CV 15.5 % (11.6-14.6); RBC Distribution Width SD 57.8 fl (35.1-43.9); Red Blood Count 4.04 M/mm3 (4.6-6.2); White Blood Count 7.9 K/mm3 (4.4-11.0)
[2021-09-02 12:59] LABS: Hemoglobin A1c 5.7 % (3.8-5.6)
[2021-09-02 13:04] LABS: Anion Gap 3 (5-15); BUN 18 mg/dL (7-18); BUN/Creat Ratio 11.5 RATIO (10-20); Calcium,Total 9.5 mg/dL (8.5-10.1); Chloride 110 mmol/L (98-107); Creatinine, Serum 1.57 mg/dL (0.70-1.30); EST Glomerular Filtration Rate 45 mL/min (>60); Est Glom Filt Rate - Afr Amer 54 mL/min (>60); Glucose 112 mg/dL (74-106); Potassium 4.1 mmol/L (3.5-5.1); Sodium Level 141 mmol/L (136-145); Thyroid Stim Hormone (TSH) 3.43 uIU/mL (0.358-3.74)
[2021-09-02 13:21] LABS: PTHIN 77.7 pg/mL (18.4-80.1)
== END 2021-09-02 23:59 | disposition home or self-care (01) ==
LOC: POLAB3 10:29
PROVIDERS: PCP Family Medicine Geriatric Medicine; Visit Provider Internal Medicine Nephrology
DX: E11.65 Type 2 diabetes mellitus with hyperglycemia (principal); E11.22 Type 2 diabetes mellitus with diabetic chronic kidney disease; N18.31 Chronic kidney disease, stage 3a; R53.83 Other fatigue; D50.9 Iron deficiency anemia, unspecified
CPT/HCPCS: 36415; 80048; 83036; 83970; 84443; 85025

== ENCOUNTER → 2021-10-12 | Outpatient (CLI) | payer MEDICARE, SELFPAY ==
[2021-10-12 16:03] LABS: AST(SGOT) 10 U/L (15-37); Alanine Aminotransfer ALT/SGPT 14 U/L (16-61); Albumin, Serum 3.7 g/dL (3.2-5.0); Alkaline Phosphatase 76 U/L (45-117); Bilirubin, Direct 0.18 mg/dL (0.00-0.30); Cholesterol 134 mg/dL (200); Globulin 3.3 g/dL (2.2-4.2); High Density Lipoprotein 79 mg/dL; Triglycerides 57 mg/dL; Very Low Density Lipoprotein 11 mg/dL (5-40)
== END | disposition home or self-care (01) ==
LOC: LAB 14:43
PROVIDERS: PCP Family Medicine Geriatric Medicine; Referring Provider Internal Medicine Cardiovascular Disease; Visit Provider Internal Medicine Cardiovascular Disease
DX: I25.10 Atherosclerotic heart disease of native coronary artery without angina pectoris (principal); E78.5 Hyperlipidemia, unspecified
CPT/HCPCS: 36415; 80061; 80076

== ENCOUNTER → 2021-10-17 | Outpatient (CLI) | payer MEDICARE, SELFPAY ==
[2021-10-17 17:00] LABS: Absolute Lymphocyte Count 1.59 X10^3/uL (0.83-4.51); Absolute Neutrophil Count 5.2 X10^3/uL (2.0-7.7); Basophil# 0.05 X10^3/uL; Basophil% 0.6 % (0-1); Eosinophil# 0.96 X10^3/uL; Eosinophils% 11.2 % (0-5); Hematocrit 40.5 % (40-54); Hemoglobin 12.8 g/dL (13.0-16.5); Lymphocyte # 1.59 X10^3/ul (0.83-4.51); Lymphocyte % 18.6 % (19-41); Mean Corp Hgb Conc 31.6 g/dL (32-36); Mean Corpuscular Hgb 32.9 pg (27.0-32.0); Mean Corpuscular Volume 104.1 fL (80-94); Monocyte# 0.75 X10^3/uL; Monocyte% 8.8 % (0-10); NRBC Flagged by Analyzer 0 % (0-5); Neutrophil # 5.18 X10^3/uL (2.7-7.7); Neutrophil % 60.4 % (47-70); Platelet Count 289 K/mm3 (150-450); RBC Distribution Width CV 14.4 % (11.6-14.6); RBC Distribution Width SD 55.4 fl (35.1-43.9); Red Blood Count 3.89 M/mm3 (4.6-6.2); White Blood Count 8.6 K/mm3 (4.4-11.0)
[2021-10-17 17:39] LABS: Vitamin D,25 Hydroxy 22.4 ng/mL
[2021-10-17 17:44] LABS: ALB/GLOB Ratio 1.1 RATIO (0.9-2.4); AST(SGOT) 10 U/L (15-37); Alanine Aminotransfer ALT/SGPT 16 U/L (16-61); Albumin, Serum 3.5 g/dL (3.2-5.0); Alkaline Phosphatase 81 U/L (45-117); Anion Gap 6 (5-15); BUN 24 mg/dL (7-18); BUN/Creat Ratio 15.6 RATIO (10-20); Calcium,Total 8.9 mg/dL (8.5-10.1); Chloride 113 mmol/L (98-107); Creatinine, Serum 1.54 mg/dL (0.70-1.30); EST Glomerular Filtration Rate 46 mL/min (>60); Est Glom Filt Rate - Afr Amer 55 mL/min (>60); Globulin 3.3 g/dL (2.2-4.2); Glucose 82 mg/dL (74-106); Potassium 4.1 mmol/L (3.5-5.1); Protein, Total 6.8 g/dL (6.4-8.2); Sodium Level 145 mmol/L (136-145); Thyroid Stim Hormone (TSH) 1.17 uIU/mL (0.358-3.74)
== END | disposition home or self-care (01) ==
LOC: POLAB3 14:02
PROVIDERS: PCP Family Medicine Geriatric Medicine; Visit Provider Family Medicine Geriatric Medicine
DX: E11.65 Type 2 diabetes mellitus with hyperglycemia (principal); E55.9 Vitamin D deficiency, unspecified; I10 Essential (primary) hypertension
CPT/HCPCS: 36415; 80053; 82306; 84443; 85025

== ENCOUNTER → 2022-04-11 | Outpatient (CLI) | payer MEDICARE, SELFPAY ==
[2022-04-11 10:38] LABS: AST(SGOT) 7 U/L (15-37); Alanine Aminotransfer ALT/SGPT 20 U/L (16-61); Albumin, Serum 3.6 g/dL (3.2-5.0); Alkaline Phosphatase 104 U/L (45-117); Anion Gap 8 (5-15); BUN 25 mg/dL (7-18); BUN/Creat Ratio 14.4 RATIO (10-20); Bilirubin, Direct 0.15 mg/dL (0.00-0.30); Calcium,Total 9.2 mg/dL (8.5-10.1); Chloride 111 mmol/L (98-107); Cholesterol 125 mg/dL (200); Creatinine, Serum 1.74 mg/dL (0.70-1.30); EST Glomerular Filtration Rate 40 mL/min (>60); Est Glom Filt Rate - Afr Amer 48 mL/min (>60); Globulin 3.4 g/dL (2.2-4.2); Glucose 108 mg/dL (74-106); High Density Lipoprotein 51 mg/dL; Phosphorus 2.9 mg/dL (2.5-4.9); Potassium 3.9 mmol/L (3.5-5.1); Sodium Level 145 mmol/L (136-145); Triglycerides 88 mg/dL; Very Low Density Lipoprotein 18 mg/dL (5-40)
== END | disposition home or self-care (01) ==
LOC: LAB 08:29
PROVIDERS: PCP Family Medicine Geriatric Medicine; Referring Provider Internal Medicine Cardiovascular Disease; Visit Provider Internal Medicine Cardiovascular Disease
DX: N18.31 Chronic kidney disease, stage 3a (principal); E78.00 Pure hypercholesterolemia, unspecified
CPT/HCPCS: 36415; 80048; 80061; 80076; 84100

== ENCOUNTER → 2022-04-19 | Outpatient (CLI) | payer MEDICARE, SELFPAY ==
[2022-04-19 16:59] LABS: Absolute Lymphocyte Count 1.88 X10^3/uL (0.83-4.51); Absolute Neutrophil Count 4.2 X10^3/uL (2.0-7.7); Basophil# 0.05 X10^3/uL; Basophil% 0.7 % (0-1); Eosinophils% 9.2 % (0-5); Hematocrit 43.5 % (40-54); Hemoglobin 14.1 g/dL (13.0-16.5); Lymphocyte # 1.88 X10^3/ul (0.83-4.51); Lymphocyte % 24.7 % (19-41); Mean Corp Hgb Conc 32.4 g/dL (32-36); Mean Corpuscular Hgb 34.2 pg (27.0-32.0); Mean Corpuscular Volume 105.6 fL (80-94); Mean Platelet Vol. 10.1 fl (6.2-12.0); Monocyte# 0.73 X10^3/uL; Monocyte% 9.6 % (0-10); NRBC Flagged by Analyzer 0 % (0-5); Neutrophil # 4.22 X10^3/uL (2.7-7.7); Neutrophil % 55.4 % (47-70); Platelet Count 324 K/mm3 (150-450); RBC Distribution Width SD 54.5 fl (35.1-43.9); Red Blood Count 4.12 M/mm3 (4.6-6.2); White Blood Count 7.6 K/mm3 (4.4-11.0)
[2022-04-19 17:29] LABS: Vitamin D,25 Hydroxy 15.7 ng/mL
[2022-04-19 17:35] LABS: ALB/GLOB Ratio 1.1 RATIO (0.9-2.4); AST(SGOT) 7 U/L (15-37); Alanine Aminotransfer ALT/SGPT 17 U/L (16-61); Albumin, Serum 3.7 g/dL (3.2-5.0); Alkaline Phosphatase 79 U/L (45-117); Anion Gap 5 (5-15); BUN 25 mg/dL (7-18); BUN/Creat Ratio 14.9 RATIO (10-20); Chloride 112 mmol/L (98-107); Creatinine, Serum 1.68 mg/dL (0.70-1.30); EST Glomerular Filtration Rate 41 mL/min (>60); Est Glom Filt Rate - Afr Amer 50 mL/min (>60); Globulin 3.3 g/dL (2.2-4.2); Glucose 98 mg/dL (74-106); Potassium 3.8 mmol/L (3.5-5.1); Sodium Level 145 mmol/L (136-145); Thyroid Stim Hormone (TSH) 2.82 uIU/mL (0.358-3.74)
== END | disposition home or self-care (01) ==
LOC: POLAB3 13:20
PROVIDERS: PCP Family Medicine Geriatric Medicine; Visit Provider Family Medicine Geriatric Medicine
DX: I10 Essential (primary) hypertension (principal); E55.9 Vitamin D deficiency, unspecified
CPT/HCPCS: 36415; 80053; 82306; 84443; 85025

== ENCOUNTER → 2022-10-18 | Outpatient (CLI) | payer MEDICARE, SELFPAY ==
[2022-10-18 16:41] LABS: Absolute Lymphocyte Count 1.64 X10^3/uL (0.83-4.51); Absolute Neutrophil Count 4.2 X10^3/uL (2.0-7.7); Basophil# 0.06 X10^3/uL; Basophil% 0.8 % (0-1); Eosinophil# 0.68 X10^3/uL; Eosinophils% 9.3 % (0-5); Hematocrit 43.8 % (40-54); Hemoglobin 13.4 g/dL (13.0-16.5); Lymphocyte # 1.64 X10^3/ul (0.83-4.51); Lymphocyte % 22.4 % (19-41); Mean Corp Hgb Conc 30.6 g/dL (32-36); Mean Corpuscular Hgb 32.2 pg (27.0-32.0); Mean Corpuscular Volume 105.3 fL (80-94); Mean Platelet Vol. 10.6 fl (6.2-12.0); Monocyte# 0.68 X10^3/uL; Monocyte% 9.3 % (0-10); NRBC Flagged by Analyzer 0 % (0-5); Neutrophil # 4.23 X10^3/uL (2.7-7.7); Neutrophil % 57.7 % (47-70); Platelet Count 333 K/mm3 (150-450); RBC Distribution Width CV 14.6 % (11.6-14.6); Red Blood Count 4.16 M/mm3 (4.6-6.2); White Blood Count 7.3 K/mm3 (4.4-11.0)
[2022-10-18 16:58] LABS: Vitamin D,25 Hydroxy 19.4 ng/mL
[2022-10-18 17:19] LABS: ALB/GLOB Ratio 1.1 RATIO (0.9-2.4); AST(SGOT) 10 U/L (15-37); Alanine Aminotransfer ALT/SGPT 13 U/L (16-61); Albumin, Serum 3.5 g/dL (3.2-5.0); Alkaline Phosphatase 94 U/L (45-117); Anion Gap 11 (5-15); BUN 18 mg/dL (7-18); Bilirubin, Direct 0.12 mg/dL (0.00-0.30); Calcium,Total 8.8 mg/dL (8.5-10.1); Chloride 111 mmol/L (98-107); Cholesterol 106 mg/dL (200); Creatinine, Serum 1.64 mg/dL (0.70-1.30); EST Glomerular Filtration Rate 42 mL/min (>60); Est Glom Filt Rate - Afr Amer 51 mL/min (>60); Globulin 3.2 g/dL (2.2-4.2); Glucose 123 mg/dL (74-106); High Density Lipoprotein 60 mg/dL; Protein, Total 6.7 g/dL (6.4-8.2); Sodium Level 144 mmol/L (136-145); Thyroid Stim Hormone (TSH) 1.83 uIU/mL (0.358-3.74); Triglycerides 79 mg/dL; Very Low Density Lipoprotein 16 mg/dL (5-40)
== END | disposition home or self-care (01) ==
LOC: POLAB3 13:26
PROVIDERS: Internal Medicine Cardiovascular Disease; PCP Family Medicine Geriatric Medicine; Visit Provider Family Medicine Geriatric Medicine
DX: I10 Essential (primary) hypertension (principal); E55.9 Vitamin D deficiency, unspecified
CPT/HCPCS: 36415; 80053; 80061; 82248; 82306; 84443; 85025

== ENCOUNTER → 2022-11-23 | Outpatient (CLI) | payer MEDICARE, SELFPAY ==
--- NOTE | 2022-11-23 12:49 | ART_ITS ---
Reason For Study: PVD Procedure A bilateral lower extremity continuous wave Doppler with analog waveform analysis,segmental pressures,and ankle brachial indexes without exercise. Left Segmental Pressures Left brachial= 114mmHg. Left thigh = 127mmHg. Left calf = 74mmHg. Left posterior tibial artery = 69mmHg. Left dorsalis pedis artery = 79mmHg. Left digit = 46 mmHg. The left posterior tibial artery waveforms are biphasic. The left dorsalis pedis waveforms are biphasic. Right Segmental Pressures Right brachial= 111mmHg. Right thigh = 61mmHg. Right calf = 63mmHg. Right posterior tibial artery = 36mmHg. Right dorsalis pedis artery = 38mmHg. Right digit = 21 mmHg. The right posterior tibial artery waveforms are monophasic. The right dorsalis pedis waveforms are monophasic. Indices The right ankle brachial index by the posterior tibial artery is 0.32. The right ankle brachial index by the dorsalis pedis is 0.33. The right digital-brachial index is 0.18. The left ankle brachial index by the posterior tibial artery is 0.61. The left ankle brachial index by the dorsalis pedis is 0.69. The left post exercise ankle brachial index is 0.40. VL/Lower Ext Art Exam w/o Exercis Interpretation Summary Right MILLIE 0.33, severe arterial insufficiency. Doppler/PVR waveforms and segmen melissa pressures reveal [id number] femoral, infrapopliteal disease. Left MILLIE 0.69, moderate arterial insufficiency. Doppler/PVR waveforms and segme ntal pressures reveal distal SFA/popliteal disease.. Ordering Physician: Rhina La Referring Physician: Derek Singh Chi Performed By: Hipolito Carrillo RVT
--- NOTE | 2022-11-23 12:49 | CDU_ITS ---
Reason For Study: HX RT CVA / LT CEA Rt. Velocities/BP Lt. Velocities/BP Prox CCA 92.9/13.8 cm/sec. Prox CCA 81.5/15.7 cm/sec. Mid CCA 101.6/16.0 cm/sec. Mid CCA 76.0/15.7 cm/sec. Dist CCA 71.6/11.4 cm/sec. Dist CCA 84.6/18.8 cm/sec. Prox ICA 90.0/18.8 cm/sec. Prox ICA 135.7/13.3 cm/sec. Mid ICA 128.0/27.0 cm/sec. Mid ICA 108.2/24.8 cm/sec. Dist ICA 78.6/20.3 cm/sec. Dist ICA 75.9/19.2 cm/sec. Rt. ICA/CCA = 1.3. Lt. ICA/CCA = 1.8. Prox ECA 96.0/10.2 cm/sec. Prox ECA 119.2/9.4 cm/sec. Rt. Vert. 110.4/24.8 cm/sec. Lt. Vert. 57.2/15.4 cm/sec. Right Extracranial There is homogeneous, smooth atherosclerotic plaque noted in the right common carotid artery. There is heterogeneous, irregular atherosclerotic plaque noted in the right internal carotid artery. The atherosclerotic plaque causes acoustic shadowing. There is heterogeneous, irregular atherosclerotic plaque noted in the right external carotid artery. Antegrade flow is noted in the right vertebral artery. There is heterogeneous, irregular atherosclerotic plaque noted in the right bulb. Left Extracranial There is homogeneous, smooth atherosclerotic plaque noted in the left common carotid artery. There is heterogeneous, irregular atherosclerotic plaque noted in the left internal carotid artery. The atherosclerotic plaque causes acoustic shadowing. History of Lt CEA of ICA. There is heterogeneous, irregular atherosclerotic plaque noted in the left external carotid artery. Antegrade flow is noted in the left vertebral artery. There is heterogeneous, irregular atherosclerotic plaque noted in the left bulb. Procedure Carotid Duplex 37812. This is a Carotid Duplex examination using B-mode, color flow and specral Doppler. The exam was diagnostic. Exam performed in department. VL/Carotid Duplex Ultrasound Interpretation Summary Mild (<50%) stenosis right extracranial internal carotid. Moderate (50-69%) stenosis left extracranial internal carotid. Patent and antegrade vertebrals bilaterally. Ordering Physician: Rhina La Referring Physician: Derek Singh Chi Performed By: Hipolito Carrillo RVT
--- NOTE | 2022-11-24 10:58 | PFT ---
INTRODUCTION: The patient is an 87-year-old male that presents for pulmonary function studies secondary to a diagnosis of high risk medication use. Respiratory therapy reported good patient effort. Bronchodilators were used during testing. INTERPRETATION: Forced expiration spirometry demonstrates no evidence of a large airways obstructive ventilatory defect. Spirograms are of good quality and plateau normally. Body plethysmography was performed and revealed lung volumes to be within normal limits. Diffusing capacity by single breath CO was also within normal limits. IMPRESSION: Grossly normal pulmonary function studies.
== END | disposition home or self-care (01) ==
LOC: CVS 12:43
PROVIDERS: PCP Family Medicine Geriatric Medicine; Referring Provider Physician Assistant; Visit Provider Physician Assistant Medical
DX: I48.0 Paroxysmal atrial fibrillation (principal); I73.9 Peripheral vascular disease, unspecified; Z79.899 Other long term (current) drug therapy; Z86.73 Personal history of transient ischemic attack (TIA), and cerebral infarction without residual deficits; Z98.890 Other specified postprocedural states
CPT/HCPCS: 93880; 93923; 94060; 94726; 94729

== ENCOUNTER → 2023-04-25 | Outpatient (CLI) | payer MEDICARE, SELFPAY ==
[2023-04-25 14:21] LABS: Absolute Lymphocyte Count 1.45 X10^3/uL (0.83-4.51); Absolute Neutrophil Count 4.9 X10^3/uL (2.0-7.7); Basophil# 0.03 X10^3/uL; Basophil% 0.4 % (0-1); Eosinophil# 0.66 X10^3/uL; Eosinophils% 8.5 % (0-5); Hematocrit 43.4 % (40-54); Hemoglobin 13.7 g/dL (13.0-16.5); Lymphocyte # 1.45 X10^3/ul (0.83-4.51); Lymphocyte % 18.6 % (19-41); Mean Corp Hgb Conc 31.6 g/dL (32-36); Mean Corpuscular Volume 104.6 fL (80-94); Mean Platelet Vol. 9.8 fl (6.2-12.0); Monocyte# 0.73 X10^3/uL; Monocyte% 9.4 % (0-10); NRBC Flagged by Analyzer 0 % (0-5); Neutrophil # 4.87 X10^3/uL (2.7-7.7); Neutrophil % 62.6 % (47-70); Platelet Count 323 K/mm3 (150-450); RBC Distribution Width CV 13.9 % (11.6-14.6); RBC Distribution Width SD 53.5 fl (35.1-43.9); Red Blood Count 4.15 M/mm3 (4.6-6.2); White Blood Count 7.8 K/mm3 (4.4-11.0)
[2023-04-25 14:33] LABS: Vitamin D,25 Hydroxy 21.9 ng/mL
[2023-04-25 14:41] LABS: AST(SGOT) 8 U/L (15-37); Alanine Aminotransfer ALT/SGPT 16 U/L (16-61); Albumin, Serum 3.5 g/dL (3.2-5.0); Alkaline Phosphatase 85 U/L (45-117); Anion Gap 1 (5-15); BUN 24 mg/dL (7-18); BUN/Creat Ratio 13.7 RATIO (10-20); Chloride 111 mmol/L (98-107); Creatinine, Serum 1.75 mg/dL (0.70-1.30); EST Glomerular Filtration Rate 39 mL/min (>60); Est Glom Filt Rate - Afr Amer 48 mL/min (>60); Globulin 3.4 g/dL (2.2-4.2); Glucose 108 mg/dL (74-106); Potassium 4.7 mmol/L (3.5-5.1); Protein, Total 6.9 g/dL (6.4-8.2); Sodium Level 142 mmol/L (136-145); Thyroid Stim Hormone (TSH) 1.95 uIU/mL (0.358-3.74)
== END | disposition home or self-care (01) ==
LOC: POLAB3 13:10
PROVIDERS: PCP Family Medicine Geriatric Medicine; Visit Provider Family Medicine Geriatric Medicine
DX: E11.65 Type 2 diabetes mellitus with hyperglycemia (principal); R53.83 Other fatigue; E55.9 Vitamin D deficiency, unspecified
CPT/HCPCS: 36415; 80053; 82306; 84443; 85025

== ENCOUNTER → 2023-07-10 | Outpatient (CLI) | payer MEDICARE, SELFPAY ==
[2023-07-10 14:42] LABS: Anion Gap 7 (5-15); BUN 20 mg/dL (7-18); BUN/Creat Ratio 11.7 RATIO (10-20); Calcium,Total 8.9 mg/dL (8.5-10.1); Chloride 114 mmol/L (98-107); Creatinine, Serum 1.71 mg/dL (0.70-1.30); EST Glomerular Filtration Rate 40 mL/min (>60); Est Glom Filt Rate - Afr Amer 49 mL/min (>60); Glucose 100 mg/dL (74-106); Potassium 4.1 mmol/L (3.5-5.1); Sodium Level 148 mmol/L (136-145)
--- OUTSIDE RECORDS SUMMARY | 2023-07-10 18:51 | XMS RPT_ITS | CCD ---
Author Name Unknown Address [address] [place] [address] Organization [facility] Care Team Providers Care Domain Architect Name Role Phone MD Yonathan, Shade Bee Unavailable Timothy Hernandez Attending Unavailable Krissy Singh Primary Care Unavailable Timothy Hernandez Attending Unavailable Krissy Singh Primary Care Unavailable Dontrell Ramsey (Historic) Primary Care Prov ider Beny Phillips Primary Care Provider [phone] Derek Snigh Chi Primary Care Provider Medications Completed/Discontinued Medications Medication Drug Class(es) Dates Sig (Normalized) Sig (Original) acetaminophen / HYDROcodone (2 sources) Opioid Agonist Start: 07-27-2010 End: 02-21-2012 VICODIN 5-500 MG TABS one to two tabs four times a day as needed for pain HYDROCODONE-ACETAMI NOPHEN [id number] Shade Mcmanus MD Problems Active Problems Problem Classification Problem Date Documented Date Episodic/Chronic Acute cerebrovascular disease (2 sources) Stroke of uncertain pathology Onset: 07-25-2018 Chronic Coronary atherosclerosis and other heart disease (2 sources) Atherosclerotic heart disease of [place] coronary artery without angina pectoris; Translations: [Coronary arteriosclerosis] Onset: 05-31-2011 03-02-2015 Chronic Disorders of lipid metabolism (1 source) Hyperlipidemia; Translations: [Hyperlipidemia, unspecified] 08-06-2012 Chronic Essential hypertension (2 sources) Hypertensive disorder; Translations: [Essential hypertension] Onset: 05-28-1959 04-25-2016 Chronic Hyperplasia of prostate (2 sources) Benign prostatic hypertrophy with outflow obstruction; Translations: [Benign prostatic hyperplasia] Onset: 06-10-2007 06-10-2007 Chronic Other circulatory disease (1 source) Disorder of carotid artery; Translations: [Occlusion and stenosis of unspecified carotid artery] Onset: 08-09-2011 08-09-2011 Chronic Unclassified (3 sources) Long-term drug therapy; Translations: [Long-term (current) use of other medications] Onset: 02-04-2013 Resolved: 02-25-2015 02-25-2015 Past or Other Problems Problem Classification Problem Date Documented Date Episodic/Chronic Other screening for suspected conditions (not mental disorders or infectious disease) (1 source) Raised prostate specific antigen; Translations: [Elevated prostate specific antigen (PSA)] Onset: 06-10-2007 06-10-2007 Episodic Other skin disorders (1 source) Localized swelling, mass and lump, unspecified; Translations: [Localized swelling, mass and lump, unspecified] Onset: 07-21-2010 07-24-2010 Episodic Skin and subcutaneous tissue infections (1 source) Cellulitis and abscess of upper arm and forearm; Translations: [Cellulitis and abscess of upper arm and forearm] Onset: 07-21-2010 07-24-2010 Episodic Unclassified (2 sources) Screening for malignant neoplasm of colon ; Translations: [Encounter for screening for malignant neoplasm of colon] Onset: 08-14-2012 Resolved: 04-25-2016 04-25-2016 Unclassified (2 sources) General examination of patient ; Translations: [Encounter for other general examination] Onset: 08-06-2013 Resolved: 04-25-2016 08-06-2013 Unclassified (2 sources) Preoperative cardiovascular examination ; Translations: [Encounter for preprocedural cardiovascular examination] Onset: 08-09-2011 Resolved: 03-02-2015 08-09-2011 Results Test Name Value Interpretation Reference Range Facil ity Vital Signs Date Time Vital Sign Value Performing Clinician Faci lity 04-25-2016 16:15-0500 BMI (Body Mass Index) 25.67 kg/m2 MD Bronwyn [facility] Work Phone: 04-25-2016 16:15-0500 BP Diastolic 50 mm[Hg] MD Bronwyn Curtis [facility] Work Phone: 04-25-2016 16:15-0500 BP Systolic 120 mm[Hg] MD [facility] Work Phone: 04-25-2016 16:15-0500 BSA (Body Surface Area) 1.88 m2 MD [facility] Work Phone: 04-25-2016 16:15-0500 Pulse (Heart Rate) 64 /min MD [facility] Work Phone: 04-25-2016 16:15-0500 Respiratory Rate 20 /min MD [facility] Work Phone: 04-25-2016 16:15-0500 Weight 75.48 kg MD [facility] Work Phone: 08-04-2014 09:00-0400 Body Temperature 96.5 [degF] MD [facility] Work Phone: 08-06-2012 09:01-0400 BP Diastolic 68 mm[Hg] MD [facility] Work Phone: 08-06-2012 09:01-0400 BP Systolic 136 mm[Hg] MD [facility] Work Phone: 08-06-2012 09:01-0400 Pulse (Heart Rate) 62 /min MD [facility] Work Phone: 07-21-2010 15:48-0500 Height 171.45 cm MD [facility] Work Phone: Encounters Encounter Date Encounter Type Care Provider Facility Start: 07-25-2018 Patient encounter procedure Timothy Hernandez Facility:[facility] Start: 10-17-2010 End: 10-17-2010 Patient encounter procedure Rusty Guerra Work Phone: [facility] Start: 10-17-2010 Results Only Rusty Guerra Work Phone: [facility] Procedures Date Procedure Procedure Detail Performing Clinician Start: 10-16-2016 End: 04-24-2017 *Hepatic Function Panel Jono Kline Start: 10-16-2016 End: 04-24-2017 Lipid 1996 panel - Serum or Plasma Shade Mcmanus MD Start: 04-25-2016 End: 04-25-2016 INSPECTOR REPAIRER SANDSTONE Shade Mcmanus MD Start: 04-25-2016 End: 04-25-2016 Follow Up Appt 1 year Shade Mcmanus MD Start: 04-18-2016 End: 04-18-2016 *Hepatic Function Panel Jono Kline Start: 04-18-2016 End: 04-18-2016 Lipid 1996 panel - Serum or Plasma Shade Mcmanus MD Start: 03-02-2015 End: 03-03-2015 Documentation of current medications Shade Mcmanus MD Start: 03-02-2015 End: 03-02-2015 Follow Up Appt 1 year Shade Mcmanus MD Start: 03-02-2015 End: 03-02-2015 MMM Shade Mcmanus MD Start: 03-02-2015 End: 03-03-2015 Smoking cessation education Shade Hernandez i, MD Start: 02-25-2015 End: 02-25-2015 Lipid 1996 panel - Serum or Plasma Shade Mcmanus MD Start: 08-27-2014 End: 09-08-2014 *Hepatic Function Panel Jono Kline Start: 08-27-2014 End: 09-08-2014 Lipid Yony panel - Serum or Plasma Shade Mcmanus MD Start: 08-04-2014 End: 02-25-2015 *BMP Beny Phillips MD Start: 08-04-2014 End: 09-08-2014 CBC W Auto Differential panel - Blood Beny Phillips MD Start: 02-24-2014 End: 02-26-2014 *Hepatic Function Panel Jono Kline Start: 02-24-2014 End: 02-24-2014 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 [employer]ST[employer] Shade Mcmanus MD Start: 02-24-2014 End: 02-24-2014 Follow Up Appt 1 year Shade Mcmanus MD Start: 02-24-2014 End: 02-26-2014 Lipid 1996 panel - Serum or Plasma Shade Mcmanus MD Start: 07-29-2013 End: 07-29-2013 FAWAD Harden PA-C Work Phone: Start: 07-29-2013 End: 07-29-2013 Ecg routine ecg w/least 12 lds w/i&r Isidra Harden PA-C Work Phone: Start: 07-29-2013 End: 07-29-2013 Follow Up Appt 6 months Isidra ivey PA-C Work Phone: Start: 06-30-2013 End: 07-29-2013 *CMP Complete Metabolic Panel Beny Phillips MD Start: 06-30-2013 End: 07-29-2013 CBC W Auto Differential panel - Blood Beny Phillips MD Start: 06-30-2013 End: 07-29-2013 Lipid 1996 panel - Serum or Plasma Beny Phillips MD Start: 01-30-2013 End: 02-03-2013 *Hepatic Function Panel Jono Kline Start: 01-30-2013 End: 01-30-2013 Follow Up Appt 6 months Jono Kline Start: 01-30-2013 End: 02-04-2013 Lipid 1996 panel - Serum or Plasma Shade Mcmanus MD Start: 01-30-2013 End: 01-30-2013 MMM Shade Mcmanus MD Start: 08-14-2012 End: 08-14-2012 Blood occult peroxidase actv qual feces 1 deter Beny Phillips MD Start: 02-21-2012 End: 02-21-2012 Follow Up Appt 1 year Shade Mcmanus MD Start: 08-09-2011 End: 08-09-2011 Follow Up Appt 6 months Jono Kline Start: 05-31-2011 End: 05-31-2011 Follow Up Appt 1 year Shade Mcmanus MD Start: 10-17-2010 CONVERTED SURGICAL PATHOLOGY Rusty Sathya Guerra Work Phone: Plan of Treatment Date Care Activity Detail Author Start: 01-27-2020 Influenza vaccination INFLUENZA (#1) [facility] Start: 05-01-2017 End: 05-01-2017 Appointment Appointment [facility] Work Phone: Start: 10-16-2016 End: 04-24-2017 *Hepatic Function Panel *Hepatic Function Panel [facility] Work Phone: Start: 10-16-2016 End: 04-24-2017 Lipid panel [AGGREGATE] *Lipid Profile CC PCP [facility] Work Phone: Start: 04-25-2016 End: 04-25-2016 INSPECTOR REPAIRER SANDSTONE INSPECTOR REPAIRER [employer]ANDSTONE [facility] Work Phone: Start: 04-25-2016 End: 04-25-2016 Follow Up Appt 1 year Follow Up Appt 1 year [facility] Work Phone: Start: 04-18-2016 End: 04-18-2016 *Hepatic Function Panel *Hepatic Function Panel [facility] Work Phone: Start: 04-18-2016 End: 04-18-2016 Lipid panel [AGGREGATE] *Lipid Profile CC PCP [facility] Work Phone: Start: 03-02-2015 End: 03-02-2015 Follow Up Appt 1 year Follow Up Appt 1 year [facility] Work Phone: Start: 03-02-2015 End: 03-02-2015 MMM MMM [facility] Work Phone: Start: 02-25-2015 End: 02-25-2015 Lipid panel [AGGREGATE] *Lipid Profile CC PCP [facility] Work Phone: Start: 08-27-2014 End: 09-08-2014 *Hepatic Function Panel *Hepatic Function Panel [facility] Work Phone: Start: 08-27-2014 End: 09-08-2014 Lipid panel [AGGREGATE] *Lipid Profile CC PCP [facility] Work Phone: Start: 08-04-2014 End: 02-25-2015 *BMP *BMP [facility] Work Phone: Start: 08-04-2014 End: 09-08-2014 CBC W Auto Differential panel - Blood *CBC without Diff [facility] Work Phone: Start: 02-24-2014 End: 02-26-2014 *Hepatic Function Panel *Hepatic Function Panel [facility] Work Phone: Start: 02-24-2014 End: 02-24-2014 INSPECTOR REPAIRER SANDSTONE INSPECTOR REPAIRER SANDSTONE [facility] Work Phone: Start: 02-24-2014 End: 02-24-2014 Follow Up Appt 1 year Follow Up Appt 1 year [facility] Work Phone: Start: 02-24-2014 End: 02-26-2014 Lipid panel [AGGREGATE] *Lipid Profile CC PCP [facility] Work Phone: Start: 07-29-2013 End: 07-29-2013 INSPECTOR REPAIRER SANDSTONE INSPECTOR REPAIRER SANDSTONE [facility] Work Phone: Start: 07-29-2013 End: 07-29-2013 Ecg routine ecg w/least 12 lds w/i&r EKG (In office) [facility] Work Phone: Start: 07-29-2013 End: 07-29-2013 Follow Up Appt 6 months Follow Up Appt 6 months [employer] Phone: Start: 06-30-2013 End: 07-29-2013 *CMP Complete Metabolic Panel *CMP Complete Metabolic Panel [employer] Phone: Start: 06-30-2013 End: 07-29-2013 CBC W Auto Differential panel - Blood *CBC without Diff [employer] Phone: Start: 06-30-2013 End: 07-29-2013 Lipid panel [AGGREGATE] *Lipid Profile [employer] Work Phone: Start: 01-30-2013 End: 02-03-2013 *Hepatic Function Panel *Hepatic Function Panel [employer] Phone: Start: 01-30-2013 End: 01-30-2013 Follow Up Appt 6 months Follow Up Appt 6 months [employer] Phone: Start: 01-30-2013 End: 02-04-2013 Lipid panel [AGGREGATE] *Lipid Profile CC PCP [employer] Phone: Start: 01-30-2013 End: 01-30-2013 MMM MMM [employer] Phone: Start: 08-14-2012 End: 08-14-2012 Blood occult peroxidase actv qual feces 1 deter [facility] (Office) [employer] Phone: Start: 02-21-2012 End: 02-21-2012 Follow Up Appt 1 year Follow Up Appt 1 year [facility] Work Phone: Start: 08-09-2011 End: 08-09-2011 Follow Up Appt 6 months Follow Up Appt 6 months [employer] Phone: Start: 05-31-2011 End: 05-31-2011 Follow Up Appt 1 year Follow Up Appt 1 year [facility] Work Phone: Start: 09-28-1999 ADVANCE DIRECTIVE DISCUSSION ADVANCE DIRECTIVE DISCUSSION [facility] Start: 1984 SHINGRIX VACCINE (1 of 2) SHINGRIX VACCINE (1 of 2) [facility] Start: 09-28-1979 DIABETES SCREEN DIABETES SCREEN [facility] Start: 1953 Urine microalbumin profile DTAP,TDAP,TD (1 - Tdap) [facility] Patient Education [employer] Work Phone: Payers Date Payer Category Payer Medicare [id number] 2009 Medicare AETNA MEDICARE A ETNA MEDICARE PPO [id number] 2009-Present PPO 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) [facility] Sex Assigned At Not on file [facility] Summary Purpose Family History No Family History Records Found Advance Directives No Advanced Directives Records Found Additional Source Comments (unrecognized sect ion and content) No Status Records Found INFORMATION SOURCE (unrecogn ized section and content) Source Comments (unrecognize d section and content) In the event this informatio n is protected by the Federal Confidentiality of Alcohol and Drug Abuse Patient Records regulations: The Federal rules restrict any use of the information to criminally investigate or prosecute any alcohol or drug abuse patient.[facility] FOR RECORDS PERTAINING TO PATIENTS WHO ARE OR HAVE BEEN ENROLLED IN A CHEMICAL DEPENDENCY/SUBSTANCEABUSE PROGRAM, SOME INFORMATION MAY BE OMITTED. This clinical summary was aggregated from multiple sources. Caution should be exercised in using it in the provision of clinical care. This summary normalizes information from multiple sources, and as a consequence, information in this document may materially change the coding, format and clinical context of patient data. In addition, data may be omitted in some cases. CLINICAL DECISIONS SHOULD BE BASED ON THE PRIMARY CLINICAL RECORDS. [facility] provides no warranty or guarantee of the accuracy or completeness of information in this document.
== END | disposition home or self-care (01) ==
LOC: LAB 13:58
PROVIDERS: PCP Family Medicine Geriatric Medicine; Referring Provider Physician Assistant; Visit Provider Physician Assistant
DX: I10 Essential (primary) hypertension (principal); I73.9 Peripheral vascular disease, unspecified; Z79.899 Other long term (current) drug therapy
CPT/HCPCS: 36415; 80048

== ENCOUNTER → 2023-07-27 | Outpatient (CLI) | payer MEDICARE, SELFPAY ==
--- NOTE | 2023-07-27 14:32 | CT_ITS ---
EXAM: CT ANGIOGRAPHY ABDOMEN AND PELVIS WITH RUNOFF TO THE LOWER EXTREMITIES WITH INTRAVENOUS CONTRAST CLINICAL INDICATION: Severe RLE PAD -- Please hydrate with IVF, order faxed TECHNIQUE: Helically acquired angiography images were obtained of the abdomen, pelvis and lower extremities with intravenous contrast using CTA runoff protocol. This CT exam was performed using one or more of the following dose reduction techniques: automated exposure control, adjustment of the mA and/or kV according to patient size, and/or use of iterative reconstruction technique. MIP reconstructed images were created and reviewed. CONTRAST: IV 100mL Isovue-370 COMPARISON: No relevant prior studies available. FINDINGS: LIMITATIONS: Limited reformats do not allow cross-referencing. VASCULATURE: AORTA: No acute findings. Normal caliber abdominal aorta. No occlusion or significant stenosis. No dissection. CELIAC TRUNK AND MESENTERIC ARTERIES: No acute findings. No occlusion or significant stenosis. No dissection. RENAL ARTERIES: Mild left renal artery stenosis. RIGHT ILIAC ARTERIES: Occlusion of the right external iliac artery with reconstitution of the right common femoral artery. RIGHT FEMORAL/POPLITEAL ARTERIES: Occlusion of the right superficial femoral artery approximately 5 cm distal to the common femoral bifurcation. Right popliteal artery is occluded. RIGHT CALF/FOOT ARTERIES: Right runoff vessels are patent. LEFT ILIAC ARTERIES: Mild atherosclerotic narrowing of the left common iliac artery. LEFT FEMORAL/POPLITEAL ARTERIES: Occluded left superficial femoral artery at the origin. Reconstitution of the left popliteal artery. Runoff vessels are patent. LEFT CALF/FOOT ARTERIES: No acute findings. No occlusion or significant stenosis. LOWER THORAX: Unremarkable. Lung bases are clear. No cardiomegaly. No significant pericardial effusion. ABDOMEN: LIVER: Unremarkable. Homogeneous. No focal mass. GALLBLADDER AND BILE DUCTS: Unremarkable. No calcified gallstones. No gallbladder distention or wall edema. No intra- or extrahepatic biliary ductal dilation. PANCREAS: Unremarkable. No focal cystic or solid mass. SPLEEN: Unremarkable. Normal size without focal cystic or solid mass. ADRENALS: Unremarkable. No nodules. KIDNEYS AND URETERS: Mild left renal atrophy compared to the right. Hypodense left nephrogram compared to the right. 1.3 cm. Left renal stones measure up to 1.3 cm. Mild left hydronephrosis. 5 mm stone in the left mid ureter. 6 x 8 mm stone in the left ureterovesical junction. STOMACH AND BOWEL: Unremarkable. No stomach or bowel distention. No focal inflammatory change. PELVIS: APPENDIX: No evidence of acute appendicitis. BLADDER: Unremarkable. REPRODUCTIVE: Unremarkable as visualized. No mass. ABDOMEN, PELVIS and LOWER EXTREMITIES: INTRAPERITONEAL SPACE: Unremarkable. No ascites or other fluid collection. No free air. BONES/JOINTS: Unremarkable. No suspicious lytic or blastic abnormality. SOFT TISSUES: Unremarkable. No discrete abdominal or pelvic wall hernia. LYMPH NODES: Unremarkable. No enlarged lymph nodes. CT/CTA Abd w/Runoff W/WO Contrast IMPRESSION: 1. Stones in the left kidney, mid and distal ureter with proximal hydronephrosis and delayed nephrogram indicating obstruction. 2. Occluded right external iliac artery. 3. Occluded right superficial femoral and popliteal arteries. 4. Occluded left superficial femoral artery with distal reconstitution. Electronically Signed: Shirlene Julien MD at 18:29 EST Reading Location ID and State: [id number] / Tel , Service support ,
[2023-07-27 14:49] VITALS: BP 156/53; PULSE 76; RESP 18; TEMP 36.3; O2SAT 95; BMI 28.8
[2023-07-27] MEDS: 0.9% Normal Saline (500mL Bag) 500 ML IV (15:02)
[2023-07-27] MEDS: 0.9% Saline Lock 10 ML Syringe IV (15:03)
[2023-07-27 16:15] VITALS: BP 124/51; PULSE 53; RESP 16; O2SAT 97
== END | disposition home or self-care (01) ==
LOC: CT 14:31
PROVIDERS: PCP Family Medicine Geriatric Medicine; Referring Provider Physician Assistant; Visit Provider Physician Assistant
DX: I73.9 Peripheral vascular disease, unspecified (principal); I70.1 Atherosclerosis of renal artery
CPT/HCPCS: 75635; Q9967

== ENCOUNTER → 2023-10-30 | Outpatient (CLI) | payer MEDICARE, SELFPAY ==
[2023-10-30 16:29] LABS: Absolute Lymphocyte Count 1.29 X10^3/uL (0.83-4.51); Absolute Neutrophil Count 5.6 X10^3/uL (2.0-7.7); Basophil# 0.03 X10^3/uL; Basophil% 0.4 % (0-1); Eosinophil# 0.59 X10^3/uL; Hematocrit 41.8 % (40-54); Lymphocyte # 1.29 X10^3/ul (0.83-4.51); Lymphocyte % 15.4 % (19-41); Mean Corp Hgb Conc 31.1 g/dL (32-36); Mean Corpuscular Volume 99.8 fL (80-94); Mean Platelet Vol. 9.6 fl (6.2-12.0); Monocyte# 0.79 X10^3/uL; Monocyte% 9.4 % (0-10); NRBC Flagged by Analyzer 0 % (0-5); Neutrophil # 5.63 X10^3/uL (2.7-7.7); Neutrophil % 67.3 % (47-70); Platelet Count 324 K/mm3 (150-450); RBC Distribution Width CV 14.7 % (11.6-14.6); RBC Distribution Width SD 53.2 fl (35.1-43.9); Red Blood Count 4.19 M/mm3 (4.6-6.2); White Blood Count 8.4 K/mm3 (4.4-11.0)
[2023-10-30 17:01] LABS: ALB/GLOB Ratio 0.9 RATIO (0.9-2.4); AST(SGOT) 10 U/L (15-37); Alanine Aminotransfer ALT/SGPT 15 U/L (16-61); Albumin, Serum 3.3 g/dL (3.2-5.0); Alkaline Phosphatase 91 U/L (45-117); Anion Gap 5 (5-15); BUN 24 mg/dL (7-18); BUN/Creat Ratio 13.5 RATIO (10-20); Calcium,Total 8.9 mg/dL (8.5-10.1); Chloride 111 mmol/L (98-107); Cholesterol 113 mg/dL (200); Creatinine, Serum 1.78 mg/dL (0.70-1.30); EST Glomerular Filtration Rate 38 mL/min (>60); Est Glom Filt Rate - Afr Amer 47 mL/min (>60); Globulin 3.6 g/dL (2.2-4.2); Glucose 97 mg/dL (74-106); High Density Lipoprotein 57 mg/dL; Potassium 4.3 mmol/L (3.5-5.1); Protein, Total 6.9 g/dL (6.4-8.2); Sodium Level 140 mmol/L (136-145); Triglycerides 63 mg/dL; Very Low Density Lipoprotein 13 mg/dL (5-40)
[2023-10-30 17:07] LABS: Vitamin D,25 Hydroxy 20.9 ng/mL
== END | disposition home or self-care (01) ==
PROVIDERS: PCP Family Medicine Geriatric Medicine; Referring Provider Family Medicine Geriatric Medicine; Visit Provider Family Medicine Geriatric Medicine
DX: E11.65 Type 2 diabetes mellitus with hyperglycemia (principal); E78.5 Hyperlipidemia, unspecified; E55.9 Vitamin D deficiency, unspecified; I10 Essential (primary) hypertension
CPT/HCPCS: 36415; 80053; 80061; 82306; 84443; 85025

== ENCOUNTER → 2023-11-09 | Outpatient (CLI) | payer MEDICARE, SELFPAY ==
--- NOTE | 2023-11-09 10:49 | ART_ITS ---
Reason For Study: PVD Procedure A bilateral lower extremity continuous wave Doppler with analog waveform analysis,segmental pressures,and ankle brachial indexes without exercise. Left Segmental Pressures Left brachial= 109mmHg. Left thigh = 160mmHg. Left calf = 94mmHg. Left posterior tibial artery = 69mmHg. Left dorsalis pedis artery = 63mmHg. Left digit = 34 mmHg. The left posterior tibial artery waveforms are monophasic. The left dorsalis pedis waveforms are biphasic. Right Segmental Pressures Right brachial= 102mmHg. Right thigh = 54mmHg. Right calf = 56mmHg. Right posterior tibial artery = 51mmHg. Right dorsalis pedis artery = 53mmHg. Unable to acquire DBI. No waveform detected. The right posterior tibial artery waveforms are monophasic. The right dorsalis pedis waveforms are monophasic. Indices The right ankle brachial index by the posterior tibial artery is 0.47. The right ankle brachial index by the dorsalis pedis is 0.49. Unable to acquire DBI. No waveform detected. The left ankle brachial index by the posterior tibial artery is 0.63. The left ankle brachial index by the dorsalis pedis is 0.58. The left digital-brachial index is 0.34. VL/Lower Ext Art Exam w/o Exercis Interpretation Summary Right MILLIE 0.49, moderate arterial insufficiency. Doppler/PVR waveforms and segm ental pressures reveal ongdn-kigfx-xhabzlgw femoral disease Left MILLIE 0.63, moderate arterial insufficiency. Doppler/PVR waveforms and segme ntal pressure reveal distal SFA/popliteal, infrapopliteal disease Ordering Physician: Marlo Tomlinson Referring Physician: Derek Singh Chi Performed By: Hipolito Carrillo, RVT
== END | disposition home or self-care (01) ==
LOC: CVS 10:47
PROVIDERS: PCP Family Medicine Geriatric Medicine; Referring Provider Surgery Trauma Surgery; Visit Provider Surgery Trauma Surgery
DX: I73.9 Peripheral vascular disease, unspecified (principal)
CPT/HCPCS: 93923

== ENCOUNTER 2023-12-02 14:46 | Inpatient (IN) | payer MEDICARE, SELFPAY ==
[2023-12-02] VITALS (26 sets, daily range): BP systolic 98–143; BP diastolic 51–72; PULSE 62–92; RESP 12–47; TEMP 36.1–36.9; O2SAT 78–97; BMI 28.3; BMI 28.7
--- NOTE | 2023-12-02 14:53 | EKG12_ITS ---
Test Reason : Blood Pressure : / mmHG Vent. Rate : 092 BPM Atrial Rate : 092 BPM P-R Int : 248 ms QRS Dur : 106 ms QT Int : 360 ms P-R-T Axes : 078 011 065 degrees QTc Int : 445 ms Sinus rhythm with 1st degree A-V block Cannot rule out Inferior infarct , age undetermined Anteroseptal infarct , age undetermined Abnormal ECG Confirmed by Graeme Martel ([id number]), publications editor ODALYS LOPEZ ([id number]) on 12/03/2023 2:08:26 PM Referred By: Confirmed By:Graeme Martel
--- NOTE | 2023-12-02 14:53 | RAD_ITS ---
STUDY: XR Chest 1 View 12/02/2023 2:55 PM REASON FOR EXAM: Male, 88 years old. dyspnea COMPARISON: 9.15.21 TECHNIQUE: XR Chest 1 View FINDINGS: Bilateral pleural effusions. Right lower lobe infiltrate. Enlarged heart size. Normal mediastinum. Normal binu. Prominent appearing increased interstitial lung markings. Normal visualized pulmonary arteries. There is atherosclerotic calcification of the aortic arch with tortuosity. There are diffuse degenerative changes of the visualized thoracic spine. There is degenerative osteoarthritis of the bilateral shoulders. There are no acute findings of the upper abdomen. RAD/Chest 1 View (Portable) IMPRESSION: Bilateral effusions and a right lower lobe infiltrate. Electronically Signed: Mikael Beth MD at 15:17 EDT ,
--- NOTE | 2023-12-02 14:56 | ED.VIS.DYS ---
HPI History of Present Illness Chief Complaint: Shortness of Breath Informant: patient and family Onset/Context/Timing Onset: Days Context: gradual Timing: Continuous Current Severity: Severe Maximum Severity: Severe Worsened by: Nothing Relieved by: Nothing Associated Symptoms cough Chest Pain: Positive for None Narrative Narrative: 88-year-old male smoker. Lives alone. Has been short of breath for the last 3 days. Cough white sputum. Denies any fever. No hemoptysis. No chest pain. No leg pain or swelling. He denies any cardiac history. He is reportedly on Eliquis and amiodarone. Patient called the squad squad got there his pulse ox was 40% on room air and he was in labored respirations. 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 Hyperkalemia Type 2 DM with CKD and hypertension PAF (paroxysmal atrial fibrillation) Atrial fibrillation with rapid ventricular response Gross hematuria Dyspnea Anxiety Smoker Dementia Complication, blocked Chopra catheter Nonobstructive atherosclerosis of coronary artery Essential (primary) hypertension History of CVA (cerebrovascular accident) (02/25/18) History of cancer of larynx Carotid stenosis Carotid arterial disease Hyperlipidemia Home Medications ?Medication ?Instructions ?Recorded ?Last Taken ?Type levothyroxine 50 mcg tablet 50 mcg PO DAILY 10/12/21 Unknown History mirtazapine 15 mg tablet 15 mg PO QHS mental health 10/12/21 Unknown History polysaccharide iron complex 150 mg 150 mg PO DAILY 10/12/21 Unknown History iron capsule sennosides 8.6 mg-docusate sodium 1 tab-cap PO BID 06/25/23 Unknown History 50 mg tablet (Senna-S) amiodarone 200 mg tablet See Rx Instructions .Route 08/27/23 Unknown Rx .COMPLEX #90 tabs amlodipine 5 mg tablet 5 mg PO DAILY #90 tabs 08/27/23 Unknown Rx atorvastatin 40 mg tablet 40 mg PO QHS cholesterol #90 tabs 08/27/23 Unknown Rx lisinopril 20 mg tablet 20 mg PO DAILY #90 tabs 08/27/23 Unknown Rx metoprolol tartrate 50 mg tablet 25 mg (1/2 x 50 mg) PO BID #90 tabs 08/27/23 Unknown Rx apixaban 2.5 mg tablet (Eliquis) 2.5 mg PO BID Dose decreased to 08/28/23 Unknown Rx 2.5 mg twice daily #180 tabs azithromycin 250 mg tablet See Rx Instructions PO .COMPLEX #6 11/28/23 Unknown Rx (Zithromax Z-Henry) tabs ipratropium 0.5 mg-albuterol 3 mg 3 ml continuous nebulization ONCE 11/28/23 Unknown Clinic (2.5 mg base)/3 mL nebulization #1 mL soln prednisone 10 mg tablet See Rx Instructions PO DAILY #30 11/28/23 Unknown Rx tabs Allergy/AdvReac Type Severity Reaction Status Date / Time alcohol Allergy Unknown Unknown Verified 12/02/23 16:11 Family History Other CAD (coronary artery disease) Heart disease Hypertension Surgical History History of left-sided carotid endarterectomy (07/2010) History of left heart catheterization (09/27/05) Hx of tonsillectomy History of appendectomy History of bilateral knee replacement (2007) Social History Smoking Status: Current every day smoker tobacco type: cigarettes alcohol intake: former details: Quit 19 years ago substance use type: does not use caffeine: Yes Type: coffee ROS ROS ED ROS Narrative Shortness of breath. Productive cough of white sputum. Denies chest pain. Denies leg pain or swelling. Review of Systems ROS Unobtainable: Denies due to encephalopathy Constitutional Constitutional ED: Denies chills Eyes Eyes: Denies blurry vision ENT ENT ED: Denies ear pain Cardiovascular Cardiovascular: Denies chest pain or palpitations Respiratory/Chest Respiratory/Chest: Reports cough and dyspnea Gastrointestinal Gastrointestinal: Denies abdominal pain, constipation, diarrhea, melena, nausea or vomiting Genitourinary Genitourinary ED: Denies dysuria or hematuria Musculoskeletal Musculoskeletal: Denies arthralgias or back pain Integumentary Denies abscess or Abrasions Neurologic Neurologic: Denies headache(s) Psychiatric Psychiatric: Denies anxiety or depression Endocrine Endocrinology: Denies cold intolerance Hematologic/Lymphatic Hematologic/Lymphatic: Denies lymphadenopathy Allergic/Immunologic Allergic/Immunologic ED: Denies mouth swelling, tongue swelling or urticaria EXAM Physical Exam Narrative Exam Narrative: A 8-year-old male vital signs show a pulse ox of 78% when he was initially put on nonrebreather. Obviously hypoxic. He does not look septic or toxic. He has increased respiratory rate and work of breathing. H EENT exam terminated leg. No trauma. No facial droop. Moist extremities. Neck nontender no JVD. No lymphadenopathy. Lungs crackles throughout. Increased respiratory rate. Do not appreciate any wheezing at this time. Heart regular rhythm at about 90 no murmur. Chest wall ribs nontender. Abdomen soft nontender. Moving all 4 extremities. Trace ankle edema bilaterally. Calves are nontender. No cords. Neurologically is awake and alert no focal motor deficit. Const Vital Signs: 12/02/23 14:47 12/02/23 14:50 12/02/23 14:58 Temperature 97.2 F L Temperature Source Axillary Pulse Rate 92 81 Respiratory Rate 44 H 46 H Respiratory Effort Short of Breath Labored Accessory Muscle Use Respiratory Depth Shallow Respiratory Pattern Tachypnea Blood Pressure 128/55 H Blood Pressure Mean 79 Pulse Ox 78 81 Oxygen Delivery Method Non-Rebreather Oxygen Flow Rate (L/min) 15 Fraction of Inspired Oxygen (FIO2) 100 12/02/23 15:01 12/02/23 15:03 12/02/23 15:13 Temperature 97.2 F L Temperature Source Axillary Pulse Rate 91 81 Respiratory Rate 38 H 46 H Respiratory Effort Respiratory Depth Respiratory Pattern Blood Pressure 110/60 Blood Pressure Mean 76 Pulse Ox 80 83 Oxygen Delivery Method Bi-pap Bi-pap Oxygen Flow Rate (L/min) Fraction of Inspired Oxygen (FIO2) 100 12/02/23 15:30 12/02/23 15:48 12/02/23 16:00 Temperature 96.9 F L Temperature Source Temporal Pulse Rate 82 80 Respiratory Rate 47 H 39 H 41 H Respiratory Effort Respiratory Depth Respiratory Pattern Blood Pressure 108/53 L 104/51 L Blood Pressure Mean 71 68 Pulse Ox 87 88 90 Oxygen Delivery Method Bi-pap Bi-pap Oxygen Flow Rate (L/min) Fraction of Inspired Oxygen (FIO2) 100 100 12/02/23 16:00 12/02/23 16:09 Temperature 96.9 F L Temperature Source Pulse Rate 79 78 Respiratory Rate 34 H 27 H Respiratory Effort Respiratory Depth Respiratory Pattern Blood Pressure 104/51 L 104/51 L Blood Pressure Mean 68 68 Pulse Ox 90 90 Oxygen Delivery Method Bi-pap Oxygen Flow Rate (L/min) Fraction of Inspired Oxygen (FIO2) Positive well nourished and well developed; Negative for cachectic, contractures or unkempt General Appearance ED: well developed; Negative for unkempt, cachectic, contractures, NAD or pallor Nutritional Appearance: Negative for cachectic HEENT Reports moist mucous membranes atraumatic; Negative for trauma or tenderness Eyes PERRL and EOMs intact bilaterally General Eye ED: Negative for pale conjunctiva or scleral icterus Neck no lymphadenopathy, supple, no meningeal signs and no JVD General: Negative for tenderness Lymph Lymphatic: Negative for other Chest Wall Chest: Negative for other Resp No normal respiratory effort and No clear to auscultation bilaterally Auscultation: Negative for rales Cardio regular rate, regular rhythm, S1 normal heart sound, S2 normal heart sound and no murmurs Rate: Negative for bradycardia or tachycardic Rhythm: Negative for abnormal rhythm GI non-tender, non-distended and no masses Auscultation: normoactive bowel sounds Palpation: soft; Negative for tender, guarding, hepatomegaly or rebound tenderness present Back/Spine no CVA tenderness and normal to inspection General Back: Negative for CVA tenderness or tenderness Extremity Negative for normal to inspection Extremity Narrative: Trace ankle edema only. General Extremety ED: Yes edema; Negative for tenderness General Extremity: edema Neuro oriented x3 Sensorium / Orientation: alert, oriented to person, oriented to place and oriented to time; Negative for orientation impaired, confused, lethargic or stuporous Speech: speech normal Motor Exam: strength 5/5 throughout Psych mental status grossly normal Appearance: Negative for unkempt Attitude: No agitated Mood & Affect: Negative for depressed or tearful Thought Process: normal thought process Skin no wounds and skin turgor normal General Skin Exam: Negative for jaundice or pallor Lesions: no lesions Rashes: no rashes MDM MDM MDM Narrative Medical decision making narrative: 88-year-old male smoker with hypoxia and respiratory distress. Could be COPD exacerbation could be pneumonia CHF versus cardiac etiology or other causes. Labs and x-ray and EKG will be obtained. Been given a DuoNeb aerosol, albuterol and 125 Solu-Medrol. Patient's daughter did arrive he did go to an urgent care around the third written for Zithromax for pneumonia but that he never got it filled. He will be started on IV antibiotics. Blood cultures. He will be admitted. Patient is willing to get intubated if he is not progressing or gets worse. Multiple repeat exams patient is slowly getting better. His pulse ox is around 88%. He is on BiPAP. Currently he is not tiring out but will watching that closely because if he gets worse he and family are comfortable with him being intubated and going on a ventilator. He is already been given IV antibiotics that are currently running in. When those are done only given 2 L of normal saline wide open. He will also be started on insulin drip. The hospitalist on page for admission. Multiple repeat evaluations patient was steadily improving but began to tire out and his pulse ox began to drop into the mid to low 80s. I discussed it with him and family and we made a choice to electively intubate him in the emergency department before he went to the ICU. Patient was given 10 of etomidate 100 succinylcholine. On the first attempt with a 7 and half ET tube was placed on any difficulty. He is pretty anterior. Patient's pulse ox was 93%. His other vital signs stayed stable. Nurses are placing an OG. Chest x-ray will be obtained post intubation. History & Record Review Discussion w/independent historian: Patient and Family Additional record(s) reviewed:: Prior inpatient record, Prior outpatient record, Prior ED visit and Prior labs Lab Data Attestation: I reviewed the patient's lab results. Lab results narrative: CBC is elevated with a 32,000 white count. H&H of 14 and 47. Platelets 597. Lactic acid is elevated 6.4. Electrolytes show potassium of 5.3. He can be consistent with his acidosis. Gap 9. BUN is 73 and creatinine of 3 consistent with dehydration and acute kidney injury Elevated blood sugar 719. No history of diabetes. Labs: Laboratory Results - last 24 hr 12/02/23 12/02/23 12/02/23 14:48 14:50 15:56 WBC 32.1 H* RBC 4.64 Hgb 14.7 Hct 47.2 MCV 101.7 H MCH 31.7 MCHC 31.1 L RDW Std Deviation 63.1 H RDW Coeff of Ancelmo 16.8 H Plt Count 597 H MPV 10.1 Immature Gran % (Auto) 1.000 H Neut % (Auto) 90.3 H Lymph % (Auto) 3.4 L [place] % (Auto) 4.9 Eos % (Auto) 0.0 Baso % (Auto) 0.4 Absolute Neuts (auto) 28.9 H Absolute Lymphs (auto) 1.10 Nucleated RBC % 0 Differential Comment SCANNED Diff Path Review May foll Toxic Granulation 1+ Sodium 138 Potassium 5.3 H Chloride 109 H Carbon Dioxide 20.0 L Anion Gap 9 BUN 73 H Creatinine 3.09 H Estim Creat Clear Calc 16.62 Est GFR (MDRD) Af Amer 25 L Est GFR (MDRD) Non-Af 20 L BUN/Creatinine Ratio 23.6 H Glucose 719 H* Lactic Acid 6.4 H* Calcium 10.0 Troponin I High Sens 9 Acetone Level NEGATIVE POC Glucose > 500 H* ABG Data ABG results: ABG 12/02/23 14:59 Specimen Type ART Sample Site L Radial pH 7.20 L Bicarbonate Actual 17.7 L Total CO2 19 Base Excess -10 L O2 Saturation 79 L O2 % 100.0 ABG pCO2 45.1 H ABG pO2 53 L Nirmal Test Positive O2 Delivery Device BiPAP Vent Mode Not entered Crit Call To/Read Back Yes Blood Gas Notified Whom MERINO Blood Gas Notified Time 15:02:31 Radiography Chest X-Ray - ED: 1 View, Read by ED Physician, Heart, Mediastinum, Bony Structures, Chronic Changes and Right Infiltrate Diagnostic Testing: Clinical Impression(s) from Imaging Studies Chest X-Ray 12/02/23 14:53 IMPRESSION: Bilateral effusions and a right lower lobe infiltrate. Electronically Signed: Mikael Beth MD at 15:17 EDT Reading Location ID and State: [facility] / [place] , Service support , Right lower lobe increased density could be secondary to right lower lobe pneumonia versus effusion versus atelectasis. Rhythm Strip Rhythm Strip: Sinus Rhythm Rate: 92 Ectopy: None EKG Initial EKG: Attestation: I personally reviewed and interpreted this EKG as follows: Interpretation: Sinus Rhythm and No Acute Injury Pattern Comments: Normal sinus rhythm rate of 92 no acute signs of ST elevation or depression. Procedures Intubations Intubation Method: orotracheal (Patient pretreated with etomidate and succinylcholine. Intubated on the first attempt. 7 at the ET tube and 23 at the lips. Good color change. Bilateral breath sounds.) Intubation Verification: Positive color change and Bilateral breath sounds confirmed Intubation Complications: no complications Critical Care Time Critical Care Time: Yes Critical care time (excluding procedures): 30-74 minutes, Including time spent:, Discussing w/Patient &/or Family/Bone Cooking Operator, Discussing w/Consultants, Arranging Admission or Transfer, Performing Direct Patient Care at Bedside and - (35 min) Discharge Plan Dx/Rx/DC Orders Clinical Impression: Respiratory failure, Hypoxia, Pneumonia, History of atrial fibrillation, Chronic anticoagulation, Diabetes mellitus, new onset, Hyperglycemia due to diabetes mellitus, Acidosis, lactic, Acute kidney injury, Acute dehydration, Endotracheally intubated, Sepsis, Acute UTI Disposition Disposition: [facility]
[2023-12-02 15:05] LABS: Allen Test Positive; Base Excess -10 mmol/L (-2 to +2); Bicarbonate 17.7 mmol/L (22-26); Blood Gas Specimen Type ART; Mode Not entered; O2 Delivery Device BiPAP; PO2 53 mmHG (75-100); SITE L Radial; SO2 79 % (95-99); Total Carbon Dioxide 19 mmol/L; pCO2 45.1 mmHg (35-45)
[2023-12-02] MEDS: Ipratropium/Albuterol Sulfate 3 ML AMPUL.NEB INHALATION (15:05)
--- NOTE | 2023-12-02 15:12 | ED.RN ---
THIS RN, PATIENTS DAUGHTER AND DR. MERINO AT BEDSIDE. PATIENT IS USING ACCESSORY MUSCLES WITH SPO2 85% ON BI-PAP 100%. RN REQUESTED DR. MERINO TO CONSIDER INTUBATION AT THIS TIME. DR. MERINO STATES HE DOES NOT WANT TO INTUBATE AT THIS TIME. GRANT CHARGE NURSE NOTIFIED
[2023-12-02] MEDS: Albuterol 2.5 MG/3 ML VIAL.NEB. INHALATION (15:16)
[2023-12-02 15:19] LABS: Absolute Neutrophil Count 28.9 X10^3/uL (2.0-7.7); Basophil# 0.13 X10^3/uL; Basophil% 0.4 % (0-1); Hematocrit 47.2 % (40-54); Hemoglobin 14.7 g/dL (13.0-16.5); Lymphocyte % 3.4 % (19-41); Mean Corp Hgb Conc 31.1 g/dL (32-36); Mean Corpuscular Hgb 31.7 pg (27.0-32.0); Mean Corpuscular Volume 101.7 fL (80-94); Mean Platelet Vol. 10.1 fl (6.2-12.0); Monocyte# 1.57 X10^3/uL; Monocyte% 4.9 % (0-10); NRBC Flagged by Analyzer 0 % (0-5); Neutrophil # 28.93 X10^3/uL (2.7-7.7); Neutrophil % 90.3 % (47-70); POSITIVE COUNT YES; POSITIVE DIFFERENTIAL YES; Platelet Count 597 K/mm3 (150-450); RBC Distribution Width CV 16.8 % (11.6-14.6); RBC Distribution Width SD 63.1 fl (35.1-43.9); Red Blood Count 4.64 M/mm3 (4.6-6.2)
[2023-12-02] MEDS: MethylPREDNISolone 125 MG/2 ML Vial IV (15:19)
[2023-12-02] MEDS: Ceftriaxone 1 GM/50 ML BAG IV (15:24)
[2023-12-02] MEDS: Azithromycin 500 MG in Dextrose 5%-Water (250mL Bag) 250 ML 250 MG IV (15:47)
[2023-12-02 15:50] LABS: Anion Gap 9 (5-15); BUN 73 mg/dL (7-18); BUN/Creat Ratio 23.6 RATIO (10-20); Chloride 109 mmol/L (98-107); Creatinine, Serum 3.09 mg/dL (0.70-1.30); Differential Indicated SCAN CRITERIA MET; EST Glomerular Filtration Rate 20 mL/min (>60); Est Glom Filt Rate - Afr Amer 25 mL/min (>60); Estimated Creatinine Clearance 16.62 ml/min; Glucose 719 mg/dL (74-106); Potassium 5.3 mmol/L (3.5-5.1); Sodium Level 138 mmol/L (136-145); Troponin-I HS 9 pg/mL (3.0-78.0); White Blood Count 32.1 K/mm3 (4.4-11.0)
[2023-12-02 15:50] LABS: Lactic Acid 6.4 mmol/L (0.4-1.9)
--- NOTE | 2023-12-02 16:00 | PCM.HP.STD ---
[facility] - General General Date of Admission: 12/02/23 Date of Service: 12/02/23 Chief Complaint: Shortness of breath HPI Narrative JACKSON GRADY, with past medical history of atrial fibrillation on chronic anticoagulation, long-term use of amiodarone, peripheral vascular disease, CVA, hypertension, chronic kidney disease stage III, presents to the ED with worsening shortness of breath. He has been having shortness of breath for the last 3 days with associated white sputum, no cardiac history. He has been having the symptoms for the last few days and was prescribed azithromycin as an outpatient but is yet to get this prescription filled His vitals were blood pressure 108/53, pulse 82, respiratory 29, 88% saturation on room air and was started on BiPAP 100% FiO2, his lactate was 6.4 WBC 32.1, chest x-ray showed prominent appearing increased interstitial lung markings, with bilateral effusions and right lower lobe infiltrates. His blood sugars was 719, pH 7.2, pCO2 45, bicarb 17.7.BUN 73, creatinine 3.01 [baseline creatinine around 1.7] In the ED he was started on IV azithromycin and ceftriaxone, methylprednisone 125, lispro 100 units infusion for hyperglycemia. His saturation was maintained on BiPAP at this time. [facility] Medical History half-way current use of amiodarone Hyperkalemia Type 2 DM with CKD and hypertension PAF (paroxysmal atrial fibrillation) Atrial fibrillation with rapid ventricular response Gross hematuria Dyspnea Anxiety Smoker Dementia Complication, blocked Chopra catheter Nonobstructive atherosclerosis of coronary artery Essential (primary) hypertension History of CVA (cerebrovascular accident) (02/25/18) History of cancer of larynx Carotid stenosis Carotid arterial disease Hyperlipidemia Home Medications ?Medication ?Instructions ?Recorded ?Last Taken ?Type levothyroxine 50 mcg tablet 50 mcg PO DAILY 10/12/21 Unknown History mirtazapine 15 mg tablet 15 mg PO QHS mental health 10/12/21 Unknown History polysaccharide iron complex 150 mg 150 mg PO DAILY 10/12/21 Unknown History iron capsule sennosides 8.6 mg-docusate sodium 1 tab-cap PO BID 06/25/23 Unknown History 50 mg tablet (Senna-S) amiodarone 200 mg tablet See Rx Instructions .Route 08/27/23 Unknown Rx .COMPLEX #90 tabs amlodipine 5 mg tablet 5 mg PO DAILY #90 tabs 08/27/23 Unknown Rx atorvastatin 40 mg tablet 40 mg PO QHS cholesterol #90 tabs 08/27/23 Unknown Rx lisinopril 20 mg tablet 20 mg PO DAILY #90 tabs 08/27/23 Unknown Rx metoprolol tartrate 50 mg tablet 25 mg (1/2 x 50 mg) PO BID #90 tabs 08/27/23 Unknown Rx apixaban 2.5 mg tablet (Eliquis) 2.5 mg PO BID Dose decreased to 08/28/23 Unknown Rx 2.5 mg twice daily #180 tabs azithromycin 250 mg tablet See Rx Instructions PO .COMPLEX #6 11/28/23 Unknown Rx (Zithromax Z-Henry) tabs ipratropium 0.5 mg-albuterol 3 mg 3 ml continuous nebulization ONCE 11/28/23 Unknown Clinic (2.5 mg base)/3 mL nebulization #1 mL soln prednisone 10 mg tablet See Rx Instructions PO DAILY #30 11/28/23 Unknown Rx tabs Allergy/AdvReac Type Severity Reaction Status Date / Time alcohol Allergy Unknown Unknown Verified 12/02/23 16:11 Family History Other CAD (coronary artery disease) Heart disease Hypertension Surgical History History of left-sided carotid endarterectomy (07/2010) History of left heart catheterization (09/27/05) Hx of tonsillectomy History of appendectomy History of bilateral knee replacement (2007) Social History Smoking Status: Current every day smoker tobacco type: cigarettes alcohol intake: former details: Quit 19 years ago substance use type: does not use caffeine: Yes Type: coffee ROS Review of Systems ROS Unobtainable: Denies due to encephalopathy, due to endotracheal tube, due to mental condition, due to mental status or other Constitutional Constitutional: Reports fatigue and fever(s) Eyes Eyes: Denies blurry vision, change in eye color, change in vision, discharge from eye(s), double vision, erythema, eye pain, loss of vision or other ENT HEENT: Denies abnormal hearing, dysphagia, ear pain, epistaxis, headache(s), hearing loss, nasal congestion, nasal discharge, post nasal drip, sinus pressure, sore throat or other Cardiovascular Cardiovascular: Denies chest pain, claudication, dyspnea on exertion, edema, lightheadedness, orthopnea, palpitations, paroxysmal nocturnal dyspnea, rapid heart rate, syncope or other Respiratory/Chest Respiratory/Chest: Reports cough, dyspnea, excessive phlegm production, shortness of breath at rest, shortness of breath with exertion and wheezing; Denies productive cough Gastrointestinal Gastrointestinal: Denies abdominal pain, coffee ground emesis, constipation, diarrhea, dyspepsia, hematemesis, hematochezia, loose stools, melena, nausea, vomiting or other Genitourinary Genitourinary: Denies burning urination, difficulty urinating, dysuria, hematuria, nocturia, urinary frequency, urinary hesitancy, urinary incontinence, urinary urgency or other Musculoskeletal Musculoskeletal: Denies arthralgias, back pain, joint pain, joint stiffness, joint swelling, myalgias, neck pain or other Neurologic Neurologic: Denies abnormal gait, abnormal speech, confusion, disequilibrium, dizziness, focal weakness, headache(s), numbness, paresthesias, seizure-like activity, seizures, syncope, tingling, tremor(s) or other Psychiatric Psychiatric: Denies anxiety, depression, homicidal ideation, suicidal ideation or other Endocrine Endocrinology: Denies change in body appearance, cold intolerance, excessive sweating, heat intolerance, polydipsia, polyuria or other Hematologic/Lymphatic Hematologic/Lymphatic: Denies anemia, easy bleeding, easy bruising, lymphadenopathy or other Vital Signs Vital Signs Vital Signs: 12/02/23 14:47 12/02/23 14:50 12/02/23 14:58 Temperature 97.2 F L Temperature Source Axillary Pulse Rate 92 81 Respiratory Rate 44 H 46 H Respiratory Effort Short of Breath Labored Accessory Muscle Use Respiratory Depth Shallow Respiratory Pattern Tachypnea Blood Pressure 128/55 H Blood Pressure Mean 79 Pulse Ox 78 81 Oxygen Delivery Method Non-Rebreather Oxygen Flow Rate (L/min) 15 Fraction of Inspired Oxygen (FIO2) 100 12/02/23 15:01 12/02/23 15:03 12/02/23 15:13 Temperature 97.2 F L Temperature Source Axillary Pulse Rate 91 81 Respiratory Rate 38 H 46 H Respiratory Effort Respiratory Depth Respiratory Pattern Blood Pressure 110/60 Blood Pressure Mean 76 Pulse Ox 80 83 Oxygen Delivery Method Bi-pap Bi-pap Oxygen Flow Rate (L/min) Fraction of Inspired Oxygen (FIO2) 100 12/02/23 15:48 Temperature Temperature Source Pulse Rate 82 Respiratory Rate 39 H Respiratory Effort Respiratory Depth Respiratory Pattern Blood Pressure 108/53 L Blood Pressure Mean 71 Pulse Ox 88 Oxygen Delivery Method Bi-pap Oxygen Flow Rate (L/min) Fraction of Inspired Oxygen (FIO2) 100 Weight Weight: 180 lb 15.992 oz Body Mass Index (BMI) 28.3 Physical Exam Const alert and oriented x3 HEENT normocephalic Neck no lymphadenopathy Resp Resp Narrative: Increased rate rate, bilaterally rhonchi present, conducted breath sounds present. Multiple adventitious sounds, bilateral infrascapular decreased breath sounds Cardio regular rate and regular rhythm GI normal to inspection, nondistended, normoactive bowel sounds Extremity normal to inspection Neuro oriented x3, moves all extremities and no focal motor deficits Psych affect normal Results Medical Records Data Attestation: I reviewed the patient's medical records Lab / Micro Data Attestation: I reviewed the patient's lab results. Lab results narrative: Leukocytosis, thrombocytosis, blood sugar 719, creatinine 3.1, BUN 73, potassium 5.3, lactic acid 6.4, 12/02/23 14:50 12/02/23 14:50 Labs: Laboratory Results - last 24 hr 12/02/23 14:48: Lactic Acid 6.4 H* 12/02/23 14:50: WBC 32.1 H*, RBC 4.64, Hgb 14.7, Hct 47.2, MCV 101.7 H, MCH 31.7, MCHC 31.1 L, RDW Std Deviation 63.1 H, RDW Coeff of Ancelmo 16.8 H, Plt Count 597 H, MPV 10.1, Immature Gran % (Auto) 1.000 H, Neut % (Auto) 90.3 H, Lymph % (Auto) 3.4 L, [place] % (Auto) 4.9, Eos % (Auto) 0.0, Baso % (Auto) 0.4, Absolute Neuts (auto) 28.9 H, Absolute Lymphs (auto) 1.10, Nucleated RBC % 0, Sodium 138, Potassium 5.3 H, Chloride 109 H, Carbon Dioxide 20.0 L, Anion Gap 9, BUN 73 H, Creatinine 3.09 H, Estim Creat Clear Calc 16.62, Est GFR (MDRD) Af Amer 25 L, Est GFR (MDRD) Non-Af 20 L, BUN/Creatinine Ratio 23.6 H, Glucose 719 H*, Calcium 10.0, Troponin I High Sens 9 ABG Data ABG results: ABG 12/02/23 14:59 Specimen Type ART Sample Site L Radial pH 7.20 L Bicarbonate Actual 17.7 L Total CO2 19 Base Excess -10 L O2 Saturation 79 L O2 % 100.0 ABG pCO2 45.1 H ABG pO2 53 L Nirmal Test Positive O2 Delivery Device BiPAP Vent Mode Not entered Crit Call To/Read Back Yes Blood Gas Notified Whom MERINO Blood Gas Notified Time 15:02:31 Rhythm Strip Rhythm Strip: Sinus Rhythm Rate: 92 Ectopy: None Imaging Radiology Impression Chest X-Ray 12/02/23 14:53 IMPRESSION: Bilateral effusions and a right lower lobe infiltrate. Electronically Signed: Mikael Beth MD at 15:17 EDT Reading Location ID and State: [facility] / [place] , Service support , Assessment & Plan Assessment/Plan (1) Respiratory failure: (2) Hypoxia: PLAN: Plan 88-year-old man with a history of chronic smoking, A-fib on chronic anticoagulation with Eliquis, hypertension presents to the ED with concerns regarding worsening shortness of breath and was found to have bilateral pleural effusions, multifocal suspected pneumonia as well as hyperglycemia on evaluation. The likely reason for his presentation his pneumonia with suspected sepsis/hypoglycemia induced dehydration. #Acute pneumonia: -X-ray features are concerning for viral pneumonia versus atypical pneumonia -Continue BiPAP, respiratory therapy for now -Transfer to ICU for further care, patient is agreeable for intubation and mechanical ventilation if needed -IV ceftriaxone plus azithromycin -concerns regarding COPD exacerbation is low based on the pCO2 45, will hold off next doses of steroids for now -Repeat lactate, ABG in 3 to 4 hours to assess pH -Follow-up on blood cultures #Type 2 diabetes newly diagnosed -Continue insulin infusion -HbA1c levels, TSH levels -Been close monitoring of sugars -Continue IV normal saline -Rule out ketosis by urine acetone levels -Urine analysis #A-fib -Currently rate controlled -Continue amiodarone -Continue Eliquis for now -Close monitoring, if no improvement with our therapy will consider heart failure also but no features of cardiac decompensation at this time #ELISEO on CKD -Likely prerenal -Repeat creatinine tomorrow, close monitoring of input and output #Depression: -Continue mirtazapine #Hypertension: Continue lisinopril 20 mg, hold metoprolol for now #DVT: On chronic anticoagulation, SCD #Disposition planning: PT OT evaluation, case management
[2023-12-02] MEDS: 0.9% Normal Saline (1000mL) 1,000 ML 999 ML IV ×2 (16:04→17:21)
[2023-12-02 16:14] LABS: Bedside Glucose > 500 mg/dL (74-106)
[2023-12-02 16:16] LABS: Differential Comment SCANNED
[2023-12-02 16:17] LABS: Toxic Granulation 1+
[2023-12-02] MEDS: Insulin Lispro 100 UNIT in 0.9% Normal Saline (100mL Bag) 99 ML 8.2 UNIT CONT INF (16:18)
--- NOTE | 2023-12-02 16:40 | ED.RN ---
DR. MERINO MADE AWARE OF PATIENTS SPO2 AT 74%. PER DR. MERINO CALL RESPIRATORY AND PREPARE FOR INTUBATION.
[2023-12-02 16:46] LABS: Base Excess -8 mmol/L (-2 to +2); Bicarbonate 18.4 mmol/L (22-26); Blood Gas Specimen Type ART; Mode Not entered; O2 Delivery Device BiPAP; PO2 65 mmHG (75-100); SITE Not entered; SO2 89 % (95-99); Total Carbon Dioxide 20 mmol/L; pCO2 39.7 mmHg (35-45); pH 7.27 (7.35-7.45)
[2023-12-02] MEDS: Etomidate 20 MG/10 ML Vial 10 MG IV (16:48)
[2023-12-02] MEDS: Succinylcholine Chloride 200 MG/10 ML SYRINGE IV (16:48)
--- NOTE | 2023-12-02 17:02 | RAD_ITS ---
STUDY: XR Chest 1 View 12/02/2023 5:01 PM REASON FOR EXAM: Male, 88 years old. post intubation COMPARISON: Study done earlier today. TECHNIQUE: XR Chest 1 View FINDINGS: Bilateral pleural effusions. Right lower lobe infiltrate. ET tube in good position. NG tube in place. Tip is off the [id number]. Enlarged heart size. Normal mediastinum. Normal binu. Prominent appearing increased interstitial lung markings. Normal visualized pulmonary arteries. There is atherosclerotic calcification of the aortic arch with tortuosity. There are diffuse degenerative changes of the visualized thoracic spine. There is degenerative osteoarthritis of the bilateral shoulders. There are no acute findings of the upper abdomen. RAD/Chest 1 View IMPRESSION: Pulmonary findings appear worse. Electronically Signed: Mikael Beth MD at 18:11 EDT ,
--- NOTE | 2023-12-02 17:16 | CPS ---
ABG at 1642 was on Bipap 10/11 and 100%. Result was given by phone to Vida RICHARDSON who was heard passing the information onto Dr Guerra.
[2023-12-02] MEDS: fentaNYL drip 100 ML 5 MCG CONT INF (17:23)
[2023-12-02 17:26] LABS: Bacteria 0 SEEN /hpf (None Seen); Mucous, Urine 0 SEEN /hpf (<or=2+); Squamous Epithelial Cells - UA 0 SEEN /hpf (0-5)
[2023-12-02 17:31] LABS: Color, Urine Yellow (Yellow); Glucose, Dipstick 1000 mg/dl (Normal); Ketone-Dipstick Negative (Negative); Leukocyte Esterase-Dipstick 500 /ul (Negative); Nitrite-Dipstick Negative (Negative); Occult Blood-Urine 250 /ul (Negative); Protein-Dipstick 100 mg/dl (Negative); Urine Bilirubin Dipstick Negative (Negative); Urine Clarity Cloudy (Clear); Urine Urobilinogen Normal (Normal)
[2023-12-02 17:38] LABS: Red Blood Cells-Urine 0-5 SEEN /hpf (0-5); White Blood Cells >100 SEEN /hpf (0-5)
[2023-12-02 17:39] LABS: Yeast-Urine 2+ /hpf (None Seen)
[2023-12-02 18:03] LABS: Bedside Glucose > 500 mg/dL (74-106)
[2023-12-02] MEDS: Propofol 10MG/Ml 1,000 MG/100 ML Bottle 4.9 MG CONT INF (18:32)
[2023-12-02 18:58] LABS: Reflex Lactate? Y
[2023-12-02 19:02] LABS: CPK Total, Creatine Kinase 24 U/L (39-308); Triglycerides 159 mg/dL
[2023-12-02 19:08] LABS: Bedside Glucose 479 mg/dL (74-106)
[2023-12-02 19:23] LABS: Allen Test Positive; Base Excess -9 mmol/L (-2 to +2); Bicarbonate 18.2 mmol/L (22-26); Blood Gas Specimen Type ART; Mode AC; O2 Delivery Device Adult Vent; PEEP 8; PO2 65 mmHG (75-100); RR 12; SITE L Radial; SO2 89 % (95-99); Total Carbon Dioxide 19 mmol/L; pCO2 39.2 mmHg (35-45); pH 7.28 (7.35-7.45)
--- NOTE | 2023-12-02 19:30 | NURSING ---
partial admission screen performed d/t pt being intubated
[2023-12-02] MEDS: Senna/Docusate Sodium 1 Tablet GT (20:48)
[2023-12-02] MEDS: Mirtazapine 15 MG Tablet GT (20:48)
[2023-12-02] MEDS: APIXABAN 2.5 MG TABLET (WCH) GT (20:49)
[2023-12-02] MEDS: Atorvastatin Calcium 40 MG Tablet GT (20:49)
[2023-12-02 22:25] LABS: Lactic Acid 2.8 mmol/L (0.4-1.9)
[2023-12-02 23:14] LABS: Bedside Glucose 369 mg/dL (74-106)
[2023-12-02 23:14] LABS: Bedside Glucose 430 mg/dL (74-106)
[2023-12-02 23:14] LABS: Bedside Glucose 473 mg/dL (74-106)
[2023-12-02 23:14] LABS: Bedside Glucose 443 mg/dL (74-106)
[2023-12-03] VITALS (37 sets, daily range): BP systolic 94–109; BP diastolic 43–57; PULSE 57–94; RESP 12–19; TEMP 36.1–37.1; O2SAT 45–100; BMI 28.3
[2023-12-03] MEDS: fentaNYL drip 100 ML 10 MCG CONT INF (03:00)
[2023-12-03 04:11] LABS: International Normalized Ratio 1.8; Prothrombin Time (Protime)PT. 20.7 SECONDS (11.7-14.9)
[2023-12-03 04:35] LABS: ALB/GLOB Ratio 0.5 RATIO (0.9-2.4); AST(SGOT) 5 U/L (15-37); Alanine Aminotransfer ALT/SGPT 13 U/L (16-61); Albumin, Serum 1.7 g/dL (3.2-5.0); Alkaline Phosphatase 78 U/L (45-117); Anion Gap 7 (5-15); BUN 63 mg/dL (7-18); BUN/Creat Ratio 27.5 RATIO (10-20); Bilirubin, Direct 0.12 mg/dL (0.00-0.30); Calcium,Total 8.4 mg/dL (8.5-10.1); Chloride 117 mmol/L (98-107); Creatinine, Serum 2.29 mg/dL (0.70-1.30); EST Glomerular Filtration Rate 29 mL/min (>60); Est Glom Filt Rate - Afr Amer 35 mL/min (>60); Estimated Creatinine Clearance 22.56 ml/min; Globulin 3.4 g/dL (2.2-4.2); Glucose 333 mg/dL (74-106); Magnesium 2.8 mg/dL (1.6-2.6); Phosphorus 2.2 mg/dL (2.5-4.9); Potassium 4.3 mmol/L (3.5-5.1); Protein, Total 5.1 g/dL (6.4-8.2); Sodium Level 146 mmol/L (136-145); Thyroid Stim Hormone (TSH) 0.15 uIU/mL (0.358-3.74)
[2023-12-03 04:50] LABS: Absolute Lymphocyte Count 0.43 X10^3/uL (0.83-4.51); Absolute Neutrophil Count 19.4 X10^3/uL (2.0-7.7); Basophil# 0.19 X10^3/uL; Basophil% 0.9 % (0-1); Hematocrit 36.5 % (40-54); Hemoglobin 11.1 g/dL (13.0-16.5); Lymphocyte # 0.43 X10^3/ul (0.83-4.51); Lymphocyte % 2.1 % (19-41); Mean Corp Hgb Conc 30.4 g/dL (32-36); Mean Corpuscular Hgb 30.4 pg (27.0-32.0); Mean Platelet Vol. 10.2 fl (6.2-12.0); Monocyte# 0.52 X10^3/uL; Monocyte% 2.5 % (0-10); NRBC Flagged by Analyzer 0 % (0-5); Neutrophil % 93.6 % (47-70); POSITIVE DIFFERENTIAL YES; POSITIVE MORPHOLOGY YES; Platelet Count 323 K/mm3 (150-450); RBC Distribution Width CV 16.4 % (11.6-14.6); RBC Distribution Width SD 59.9 fl (35.1-43.9); Red Blood Count 3.65 M/mm3 (4.6-6.2); White Blood Count 20.7 K/mm3 (4.4-11.0)
[2023-12-03 04:53] LABS: Differential Indicated SCAN CRITERIA MET
[2023-12-03 05:28] LABS: Differential Comment SCANNED; Toxic Granulation 3+
[2023-12-03 05:44] LABS: Bedside Glucose 347 mg/dL (74-106)
[2023-12-03 05:44] LABS: Bedside Glucose 435 mg/dL (74-106)
[2023-12-03 05:44] LABS: Bedside Glucose 265 mg/dL (74-106)
[2023-12-03 05:44] LABS: Bedside Glucose 380 mg/dL (74-106)
[2023-12-03 05:44] LABS: Bedside Glucose 416 mg/dL (74-106)
[2023-12-03 05:44] LABS: Bedside Glucose 305 mg/dL (74-106)
[2023-12-03] MEDS: Levothyroxine 50 MCG Tablet GT (06:20)
[2023-12-03 06:23] LABS: Bedside Glucose 242 mg/dL (74-106)
[2023-12-03] MEDS: Propofol 10MG/Ml 1,000 MG/100 ML Bottle 4.9 MG CONT INF ×2 (06:57→18:01)
[2023-12-03 07:24] LABS: Bedside Glucose 243 mg/dL (74-106)
[2023-12-03 07:24] LABS: Bedside Glucose 197 mg/dL (74-106)
--- NOTE | 2023-12-03 07:28 | PN.HOSP_ITS ---
Reason for Visit Reason for Visit: Diagnoses Respiratory failure, unspecified, unspecified whether with hypoxia or hypercapnia (12/02/23) Hypoxemia (12/02/23) Subjective Subjective Patient is an 88-year-old gentleman with multiple comorbidities presented with progressive shortness of breath imaging studies demonstrated bilateral pleural effusion and multifocal pneumonia. Was also found to have elevated lactic acid level. An assessment of sepsis secondary to pneumonia made admitted to the intensive care unit for further management. Patient respiratory status deteriorated resulting in patient being intubated Objective Data Objective Data Vital Signs: Vital Signs Temp Pulse Resp BP Pulse Ox O2 Del Method O2 Flow Rate 97 F L 61 15 109/57 L 96 Nasal Cannula 2 12/03/23 07:00 12/03/23 07:08 12/03/23 07:08 12/03/23 07:00 12/03/23 07:08 12/03/23 07:00 12/03/23 07:00 FiO2 60 12/03/23 07:08 Oxygen Flow Rate (L/min) 2 Oxygen Delivery Method Nasal Cannula Weight: 82 kg Body Mass Index (BMI) 28.3 Intake & Output: Intake and Output for Last 24 Hours 12/01/23 12/02/23 12/03/23 23:59 23:59 23:59 Intake Total 1499.43 / 1516.26 138.39 / 138.39 Output Total 450 / 450 225 / 225 Balance 1049.43 / 1066.26 -86.61 / -86.61 Lab / Micro Data 12/03/23 03:50 12/03/23 03:50 Labs: Laboratory Results - last 24 hr 12/02/23 14:48: Lactic Acid 6.4 H* 12/02/23 14:50: WBC 32.1 H*, RBC 4.64, Hgb 14.7, Hct 47.2, MCV 101.7 H, MCH 31.7, MCHC 31.1 L, RDW Std Deviation 63.1 H, RDW Coeff of Ancelmo 16.8 H, Plt Count 597 H, MPV 10.1, Immature Gran % (Auto) 1.000 H, Neut % (Auto) 90.3 H, Lymph % (Auto) 3.4 L, [place] % (Auto) 4.9, Eos % (Auto) 0.0, Baso % (Auto) 0.4, Absolute Neuts (auto) 28.9 H, Absolute Lymphs (auto) 1.10, Nucleated RBC % 0, Differential Comment SCANNED, Diff Path Review May foll, Toxic Granulation 1+, Sodium 138, Potassium 5.3 H, Chloride 109 H, Carbon Dioxide 20.0 L, Anion Gap 9, BUN 73 H, Creatinine 3.09 H, Estim Creat Clear Calc 16.62, Est GFR (MDRD) Af Amer 25 L, Est GFR (MDRD) Non-Af 20 L, BUN/Creatinine Ratio 23.6 H, Glucose 719 H*, Calcium 10.0, Total Creatine Kinase 24 L, Troponin I High Sens 9, Triglycerides 159, Acetone Level NEGATIVE 12/02/23 15:56: POC Glucose > 500 H* 12/02/23 17:00: Urine Color Cancelled 12/02/23 17:00: Urine Color Yellow, Urine Clarity Cancelled 12/02/23 17:00: Urine Clarity Cloudy, Urine pH Cancelled 12/02/23 17:00: Urine pH 5.0, Ur Specific [place] Cancelled 12/02/23 17:00: Ur Specific [place] 1.020, U Specif Grav (Refrac) Cancelled, Urine Protein Cancelled 12/02/23 17:00: Urine Protein 100 H, Urine Glucose (UA) Cancelled 12/02/23 17:00: Urine Glucose (UA) 1000 H, Urine Ketones Cancelled 12/02/23 17:00: Urine Ketones Negative, Urine Occult Blood Cancelled 12/02/23 17:00: Urine Occult Blood 250 H, Urine Nitrite Cancelled 12/02/23 17:00: Urine Nitrite Negative, Urine Bilirubin Cancelled 12/02/23 17:00: Urine Bilirubin Negative, Urine Urobilinogen Cancelled 12/02/23 17:00: Urine Urobilinogen Normal, Ur Leukocyte Esterase Cancelled 12/02/23 17:00: Ur Leukocyte Esterase 500 H, Urine RBC Cancelled 12/02/23 17:00: Urine RBC 0-5 SEEN, Urine WBC Cancelled 12/02/23 17:00: Urine WBC >100 SEEN, Ur Squamous Epith Cells Cancelled 12/02/23 17:00: Ur Squamous Epith Cells 0 SEEN, Ur Transition Epith Cell Cancelled, Ur Renal Epithelial Cell Cancelled, Calcium Oxalate Crystal Cancelled, Uric Acid Crystals Cancelled, Triple Phos Crystals Cancelled, Other Crystals Cancelled, Amorphous Sediment Cancelled, Urine Bacteria Cancelled 12/02/23 17:00: Urine Bacteria 0 SEEN, Hyaline Casts Cancelled, Fine Granular Casts Cancelled, Coarse Granular Casts Cancelled, Waxy Casts Cancelled, RBC Casts Cancelled, WBC Casts Cancelled, Urine Mucus Cancelled 12/02/23 17:00: Urine Mucus 0 SEEN, Urine Trichomonas Cancelled, Urine Yeast Cancelled 12/02/23 17:00: Urine Yeast 2+ 12/02/23 17:40: POC Glucose > 500 H* 12/02/23 18:48: POC Glucose 479 H* 12/02/23 19:50: POC Glucose 430 H 12/02/23 20:59: POC Glucose 473 H* 12/02/23 21:40: Lactic Acid 2.8 H* 12/02/23 21:43: POC Glucose 443 H 12/02/23 22:54: POC Glucose 369 H 12/03/23 00:02: POC Glucose 416 H 12/03/23 00:48: POC Glucose 435 H 12/03/23 01:59: POC Glucose 380 H 12/03/23 02:57: POC Glucose 347 H 12/03/23 03:50: WBC 20.7 H, RBC 3.65 L, Hgb 11.1 L, Hct 36.5 L, MCV 100.0 H, MCH 30.4, MCHC 30.4 L, RDW Std Deviation 59.9 H, RDW Coeff of Ancelmo 16.4 H, Plt Count 323, MPV 10.2, Immature Gran % (Auto) 0.900, Neut % (Auto) 93.6 H, Lymph % (Auto) 2.1 L, [place] % (Auto) 2.5, Eos % (Auto) 0.0, Baso % (Auto) 0.9, Absolute Neuts (auto) 19.4 H, Absolute Lymphs (auto) 0.43 L, Nucleated RBC % 0, Differential Comment SCANNED, Toxic Granulation 3+, PT 20.7 H, INR 1.8, Sodium 146 H, Potassium 4.3, Chloride 117 H, Carbon Dioxide 22.0, Anion Gap 7, BUN 63 H , Creatinine 2.29 H, Estim Creat Clear Calc 22.56, Est GFR (MDRD) Af Amer 35 L, Est GFR (MDRD) Non-Af 29 L, BUN/Creatinine Ratio 27.5 H, Glucose 333 H, Calcium 8.4 L, Phosphorus 2.2 L, Magnesium 2.8 H, Total Bilirubin 0.30, Direct Bilirubin 0.12, AST 5 L, ALT 13 L, Alkaline Phosphatase 78, Total Protein 5.1 L, Albumin 1.7 L, Globulin 3.4, Albumin/Globulin Ratio 0.5 L, TSH 0.15 L 12/03/23 03:54: POC Glucose 305 H 12/03/23 05:05: POC Glucose 265 H 12/03/23 06:05: POC Glucose 242 H 12/03/23 06:43: POC Glucose 243 H 12/03/23 07:03: POC Glucose 197 H Micro: Microbiology 12/02/23 19:18 Wound - Nose Skin and Soft Tissue MRSA/MSSA (PCR - Final 12/02/23 15:27 Mucosa - Nose SARS-CoV-2, Influenza & RSV (PCR) - Final ABG Data ABG results: ABG 12/02/23 12/02/23 12/02/23 14:59 16:42 19:19 Specimen Type ART ART ART Sample Site L Radial Not entered L Radial pH 7.20 L 7.27 L 7.28 L Bicarbonate Actual 17.7 L 18.4 L 18.2 L Total CO2 19 20 19 Base Excess -10 L -8 L -9 L O2 Saturation 79 L 89 L 89 L O2 % 100.0 100.0 100.0 ABG pCO2 45.1 H 39.7 39.2 ABG pO2 53 L 65 L 65 L Nirmal Test Positive Positive Respiration Rate 12 O2 Delivery Device BiPAP BiPAP Adult Vent Vent Mode Not entered Not entered AC Tidal Volume 450.0 POC PEEP 8 Crit Call To/Read Back Yes Blood Gas Notified Whom MERINO Blood Gas Notified Time 15:02:31 Radiography Diagnostic Testing: Radiology Impression Chest X-Ray 12/02/23 14:53 IMPRESSION: Bilateral effusions and a right lower lobe infiltrate. Electronically Signed: Mikael Beth MD at 15:17 EDT , Chest X-Ray 12/02/23 17:02 IMPRESSION: Pulmonary findings appear worse. Electronically Signed: Mikael Beth MD at 18:11 EDT , Rhythm Strip Rhythm Strip: Sinus Rhythm Rate: 92 Ectopy: None Physical Exam Narrative GENERAL: Intubated on the vent HEENT: Atraumatic; normocephalic EYES; Anicteric, Normal Conjunctiva NECK; supple, normal thyroid, RESPIRATORY: Diminished to auscultation CARDIOVASCULAR: Regular S1 S2, GI: soft, normoactive bowel sounds, : No Renal angle tenderness; EXTREMITIES: No edema, no clubbing, MUSCULOSKELETAL: no muscle wasting NEURO: Intubated on the vent SKIN: No Rash PSYCH; unable to assess with patient under sedation Assessment & Plan Assessment/Plan (1) Respiratory failure: (2) Hypoxia: PLAN: Plan Patient is an 88-year-old gentleman with multiple comorbidities presented with progressive shortness of breath imaging studies demonstrated bilateral pleural effusion and multifocal pneumonia. Was also found to have elevated lactic acid level. An assessment of sepsis secondary to pneumonia made admitted to the intensive care unit for further management 1. Sepsis (present on admission) ? Secondary to multifocal pneumonia as well as acute cystitis. Patient had SIRS criteria as well as evidence of endorgan dysfunction including lactic acidosis as well as respiratory failure requiring BiPAP. Patient admitted to the intensive care unit treatment initiated per protocol 2. Pneumonia ? With suspected multidrug-resistant organiss. Chest x-ray on admission bilateral effusions and a right lower lobe infiltrate. Patient was admitted to the intensive care unit given worsening respiratory status managed with ceftriaxone and azithromycin in addition to noninvasive ventilation with BiPAP. Did adjust patient antibiotic therapy with broadening given his worsening respiratory status 3. Acute hypoxic respiratory failure ? Secondary to pneumonia patient managed with antibiotics in addition to noninvasive ventilation with BiPAP and later transition to mechanical ventilation due to worsening respiratory status. Consult placed to fiction and nonfiction writer prose. Discussed 4. Newly diagnosed diabetes mellitus type II ? Patient started on insulin drip with with plans to transition to long-acting insulin once of the vent. 5. Acute cystitis ? Present on admission patient is on Rocephin cultures sent 6. Paroxysmal A-fib ? Rate controlled on amiodarone on systemic anticoagulation with apixaban continued 7. Dyslipidemia -Patient is on statin therapy, continued at home dose 8. Hypertension - Blood pressure controlled, home medications continued with dose adjustment as needed 9. Hypothyroidism - Patient is on levothyroxine home dose continued 10.Acute kidney injury superimposed on chronic kidney disease stage III ? Patient baseline creatinine from 10/30/2023 was 1.78 creatinine on admission was 3.09 potential nephrotoxic medications discontinued resuscitated with IV fluid with subsequent monitoring of electrolyte 11. Depression ? Patient is on mirtazapine 12. DVT prophylaxis ? On apixaban Time spent in the patient's overall evaluation,decision-making process, review of diagnostic data, adjustment of management, discussion with other providers, nursing nursing and ancillary staff involved in patient's care documentation, 52 Minutes Charges/Coding Visit Charges Inpatient E&M: 19748 [facility] L3
[2023-12-03] MEDS: Chlorhexidine 15 ML PO ×2 (08:03→21:07)
--- NOTE | 2023-12-03 08:07 | CON.PCM.CC_ITS ---
Assessment & Plan Assessment/Plan (1) Sepsis: (2) Respiratory failure: PLAN: Plan RECOMMENDATIONS: 1. Continue assist-control mode mechanical ventilation. Wean FiO2 and PEEP to maintain saturations at or above 90%. 2. Continue empiric broad-spectrum antimicrobials, pending infectious workup. 3. Obtain BNP, procalcitonin and echocardiogram. 4. Transition from continuous insulin to basal and sliding scale coverage. 5. Okay to initiate tube feeding from my perspective. 6. Continue Eliquis. 7. Initiate appropriate GI prophylaxis. 8. Check respiratory viral panel. IMPRESSIONS: 1. Sepsis The patient presented to the hospital with sepsis due to suspected pneumonia with acute sepsis related organ dysfunction as evidenced by lactic acidemia and acute respiratory failure requiring invasive mechanical ventilatory support. The patient has been initiated on broad-spectrum antimicrobials, with cultures pending. 2. Acute respiratory failure with hypoxemia The patient was initially intubated after he failed to respond to noninvasive positive pressure ventilatory support. Chest imaging was concerning for bilateral pleural effusions and possible pneumonia. It is certainly possible that the patient could be experiencing acute decompensated heart failure. Therefore, will obtain BNP and echocardiogram. He does have a known history of paroxysmal atrial fibrillation and coronary artery disease. Although there is repeated documentation that the patient has COPD, prior pulmonary function studies in 2022 failed to demonstrate evidence of COPD. The patient will be continued on assist-control mode of mechanical ventilation. FiO2 and PEEP will be weaned as tolerated. 3. Acute on chronic kidney disease Most likely prerenal in etiology. The patient did respond to fluid resuscitation with improvement in creatinine noted. Continue to monitor urine output. No current indication for renal replacement therapy. 4. History of coronary artery disease/paroxysmal atrial fibrillation/hypertension As noted above, will plan to obtain follow-up echocardiogram and BNP. I would plan to hold his home antihypertensives for now. 5. History of diabetes mellitus/hypothyroidism Complicates care, management, recovery and prognosis. The patient is not currently experiencing DKA. Therefore, we will plan to transition him from continuous insulin infusion over to basal and sliding scale coverage. In addition, will check free T4. Hemoglobin A1c is pending. TIME: 40 minutes of critical care time, independent of procedures, was spent addressing the patient's sepsis, acute respiratory failure with hypoxemia, acute on chronic kidney disease, diabetes mellitus, review of all data and collaboration with the care team. HPI Consult Data Date of Consult: 12/03/23 HPI Narrative Reason for Consultation: Respiratory failure HPI Narrative: The patient is an 88-year-old male, with a history as outlined below, who presented to the emergency department on December 01 with progressive dyspnea of approximately 3 days duration. The patient had previously been evaluated at the urgent care on November 27 with chest congestion, cough and dyspnea. He was felt to be experiencing an acute bronchitis episode in the presence of COPD. The patient was provided with a prednisone taper and azithromycin. Ironically, the patient had pulmonary function studies in October 2022 which failed to demonstrate evidence of COPD. The patient is currently followed in the cardiology clinic due to a history of coronary artery disease, paroxysmal atrial fibrillation and hypertension. On presentation to the emergency department, the patient was documented to be afebrile and hemodynamically stable. He was, nevertheless, notably tachypneic and hypoxemic. Initial laboratory evaluation revealed a white blood cell count of 32,000. Arterial blood gas obtained on BiPAP demonstrated a pH of 7.2 with a pCO2 of 45 and pO2 of 53. Chemistry profile was notable for a potassium of 5.3, bicarbonate of 20 and creatinine of 3.09. Glucose was elevated at 719 with a lactate of 6.4. Troponin was negative. Serum acetone level was negative. Chest x-ray demonstrated bilateral pleural effusions along with a right lower lobe infiltrate. COVID, influenza and RSV PCR's were negative. Although the patient was initially placed on BiPAP therapy, there was concern for further respiratory decompensation, and he was therefore intubated in the ED. The patient was placed on antimicrobials and admitted to the medical intensive care unit for further management. FOR[facility]LY [facility] Medical History halfway current use of amiodarone Hyperkalemia Type 2 DM with CKD and hypertension PAF (paroxysmal atrial fibrillation) Atrial fibrillation with rapid ventricular response Gross hematuria Dyspnea Anxiety Smoker Dementia Complication, blocked Chopra catheter Nonobstructive atherosclerosis of coronary artery Essential (primary) hypertension History of CVA (cerebrovascular accident) (02/25/18) History of cancer of larynx Carotid stenosis Carotid arterial disease Hyperlipidemia Home Medications ?Medication ?Instructions ?Recorded ?Last Taken ?Type levothyroxine 50 mcg tablet 50 mcg PO DAILY 10/12/21 Unknown History mirtazapine 15 mg tablet 15 mg PO Q mental health 10/12/21 Unknown History polysaccharide iron complex 150 mg 150 mg PO DAILY 10/12/21 Unknown History iron capsule sennosides 8.6 mg-docusate sodium 1 tab-cap PO BID 06/25/23 Unknown History 50 mg tablet (Senna-S) amiodarone 200 mg tablet See Rx Instructions .Route 08/27/23 Unknown Rx .COMPLEX #90 tabs amlodipine 5 mg tablet 5 mg PO DAILY #90 tabs 08/27/23 Unknown Rx atorvastatin 40 mg tablet 40 mg PO QHS cholesterol #90 tabs 08/27/23 Unknown Rx lisinopril 20 mg tablet 20 mg PO DAILY #90 tabs 08/27/23 Unknown Rx metoprolol tartrate 50 mg tablet 25 mg (1/2 x 50 mg) PO BID #90 tabs 08/27/23 Unknown Rx apixaban 2.5 mg tablet (Eliquis) 2.5 mg PO BID Dose decreased to 08/28/23 Unknown Rx 2.5 mg twice daily #180 tabs azithromycin 250 mg tablet See Rx Instructions PO .COMPLEX #6 11/28/23 Unknown Rx (Zithromax Z-Henry) tabs ipratropium 0.5 mg-albuterol 3 mg 3 ml continuous nebulization ONCE 11/28/23 Unknown Clinic (2.5 mg base)/3 mL nebulization #1 mL soln prednisone 10 mg tablet See Rx Instructions PO DAILY #30 11/28/23 Unknown Rx tabs Allergy/AdvReac Type Severity Reaction Status Date / Time alcohol Allergy Unknown Unknown Verified 12/02/23 16:11 Family History Other CAD (coronary artery disease) Heart disease Hypertension Surgical History History of left-sided carotid endarterectomy (07/2010) History of left heart catheterization (09/27/05) Hx of tonsillectomy History of appendectomy History of bilateral knee replacement (2007) Social History Smoking Status: Current every day smoker tobacco type: cigarettes alcohol intake: former details: Quit 19 years ago substance use type: does not use caffeine: Yes Type: coffee ROS Review of Systems ROS Unobtainable: due to endotracheal tube Physical Exam Const Constitutional Narrative: Intubated, sedated and mechanically ventilated. No ventilator dyssynchrony noted. HEENT normocephalic and head/scalp atraumatic Mouth: endotracheal tube in place and OG tube in place Eyes PERRL Neck supple General: trachea midline Chest inspection of chest normal Resp normal respiratory effort Auscultation: diminished lung sounds; Negative for rales, rhonchi or wheezes Cardio regular rate and regular rhythm GI normal to inspection, nondistended, normoactive bowel sounds Extremity General Extremity: edema; Negative for clubbing Skin no rashes or lesions noted Neuro Sensorium / Orientation: sedated on vent Lab / Micro Data 12/03/23 03:50 12/03/23 03:50 Labs: Laboratory Results - last 24 hr 12/02/23 14:48: Lactic Acid 6.4 H* 12/02/23 14:50: WBC 32.1 H*, RBC 4.64, Hgb 14.7, Hct 47.2, MCV 101.7 H, MCH 31.7, MCHC 31.1 L, RDW Std Deviation 63.1 H, RDW Coeff of Ancelmo 16.8 H, Plt Count 597 H, MPV 10.1, Immature Gran % (Auto) 1.000 H, Neut % (Auto) 90.3 H, Lymph % (Auto) 3.4 L, Kinney % (Auto) 4.9, Eos % (Auto) 0.0, Baso % (Auto) 0.4, Absolute Neuts (auto) 28.9 H, Absolute Lymphs (auto) 1.10, Nucleated RBC % 0, Differential Comment SCANNED, Diff Path Review May foll, Toxic Granulation 1+, Sodium 138, Potassium 5.3 H, Chloride 109 H, Carbon Dioxide 20.0 L, Anion Gap 9, BUN 73 H, Creatinine 3.09 H, Estim Creat Clear Calc 16.62, Est GFR (MDRD) Af Amer 25 L, Est GFR (MDRD) Non-Af 20 L, BUN/Creatinine Ratio 23.6 H, Glucose 719 H*, Calcium 10.0, Total Creatine Kinase 24 L, Troponin I High Sens 9, Triglycerides 159, Acetone Level NEGATIVE 12/02/23 15:56: POC Glucose > 500 H* 12/02/23 17:00: Urine Color Cancelled 12/02/23 17:00: Urine Color Yellow, Urine Clarity Cancelled 12/02/23 17:00: Urine Clarity Cloudy, Urine pH Cancelled 12/02/23 17:00: Urine pH 5.0, Ur Specific [place] Cancelled 12/02/23 17:00: Ur Specific [place] 1.020, U Specif Grav (Refrac) Cancelled, Urine Protein Cancelled 12/02/23 17:00: Urine Protein 100 H, Urine Glucose (UA) Cancelled 12/02/23 17:00: Urine Glucose (UA) 1000 H, Urine Ketones Cancelled 12/02/23 17:00: Urine Ketones Negative, Urine Occult Blood Cancelled 12/02/23 17:00: Urine Occult Blood 250 H, Urine Nitrite Cancelled 12/02/23 17:00: Urine Nitrite Negative, Urine Bilirubin Cancelled 12/02/23 17:00: Urine Bilirubin Negative, Urine Urobilinogen Cancelled 12/02/23 17:00: Urine Urobilinogen Normal, Ur Leukocyte Esterase Cancelled 12/02/23 17:00: Ur Leukocyte Esterase 500 H, Urine RBC Cancelled 12/02/23 17:00: Urine RBC 0-5 SEEN, Urine WBC Cancelled 12/02/23 17:00: Urine WBC >100 SEEN, Ur Squamous Epith Cells Cancelled 12/02/23 17:00: Ur Squamous Epith Cells 0 SEEN, Ur Transition Epith Cell Cancelled, Ur Renal Epithelial Cell Cancelled, Calcium Oxalate Crystal Cancelled, Uric Acid Crystals Cancelled, Triple Phos Crystals Cancelled, Other Crystals Cancelled, Amorphous Sediment Cancelled, Urine Bacteria Cancelled 12/02/23 17:00: Urine Bacteria 0 SEEN, Hyaline Casts Cancelled, Fine Granular Casts Cancelled, Coarse Granular Casts Cancelled, Waxy Casts Cancelled, RBC Casts Cancelled, WBC Casts Cancelled, Urine Mucus Cancelled 12/02/23 17:00: Urine Mucus 0 SEEN, Urine Trichomonas Cancelled, Urine Yeast Cancelled 12/02/23 17:00: Urine Yeast 2+ 12/02/23 17:40: POC Glucose > 500 H* 12/02/23 18:48: POC Glucose 479 H* 12/02/23 19:50: POC Glucose 430 H 12/02/23 20:59: POC Glucose 473 H* 12/02/23 21:40: Lactic Acid 2.8 H* 12/02/23 21:43: POC Glucose 443 H 12/02/23 22:54: POC Glucose 369 H 12/03/23 00:02: POC Glucose 416 H 12/03/23 00:48: POC Glucose 435 H 12/03/23 01:59: POC Glucose 380 H 12/03/23 02:57: POC Glucose 347 H 12/03/23 03:50: WBC 20.7 H, RBC 3.65 L, Hgb 11.1 L, Hct 36.5 L, MCV 100.0 H, MCH 30.4, MCHC 30.4 L, RDW Std Deviation 59.9 H, RDW Coeff of Ancelmo 16.4 H, Plt Count 323, MPV 10.2, Immature Gran % (Auto) 0.900, Neut % (Auto) 93.6 H, Lymph % (Auto) 2.1 L, Kinney % (Auto) 2.5, Eos % (Auto) 0.0, Baso % (Auto) 0.9, Absolute Neuts (auto) 19.4 H, Absolute Lymphs (auto) 0.43 L, Nucleated RBC % 0, Differential Comment SCANNED, Toxic Granulation 3+, PT 20.7 H, INR 1.8, Sodium 146 H, Potassium 4.3, Chloride 117 H, Carbon Dioxide 22.0, Anion Gap 7, BUN 63 H , Creatinine 2.29 H, Estim Creat Clear Calc 22.56, Est GFR (MDRD) Af Amer 35 L, Est GFR (MDRD) Non-Af 29 L, BUN/Creatinine Ratio 27.5 H, Glucose 333 H, Calcium 8.4 L, Phosphorus 2.2 L, Magnesium 2.8 H, Total Bilirubin 0.30, Direct Bilirubin 0.12, AST 5 L, ALT 13 L, Alkaline Phosphatase 78, Total Protein 5.1 L, Albumin 1.7 L, Globulin 3.4, Albumin/Globulin Ratio 0.5 L, TSH 0.15 L 12/03/23 03:54: POC Glucose 305 H 12/03/23 05:05: POC Glucose 265 H 12/03/23 06:05: POC Glucose 242 H 12/03/23 06:43: POC Glucose 243 H 12/03/23 07:03: POC Glucose 197 H Micro: Microbiology 12/02/23 19:18 Wound - Nose Skin and Soft Tissue MRSA/MSSA (PCR - Final 12/02/23 15:27 Mucosa - Nose SARS-CoV-2, Influenza & RSV (PCR) - Final ABG Data ABG results: ABG 12/02/23 12/02/23 12/02/23 14:59 16:42 19:19 Specimen Type ART ART ART Sample Site L Radial Not entered L Radial pH 7.20 L 7.27 L 7.28 L Bicarbonate Actual 17.7 L 18.4 L 18.2 L Total CO2 19 20 19 Base Excess -10 L -8 L -9 L O2 Saturation 79 L 89 L 89 L O2 % 100.0 100.0 100.0 ABG pCO2 45.1 H 39.7 39.2 ABG pO2 53 L 65 L 65 L Nirmal Test Positive Positive Respiration Rate 12 O2 Delivery Device BiPAP BiPAP Adult Vent Vent Mode Not entered Not entered AC Tidal Volume 450.0 POC PEEP 8 Crit Call To/Read Back Yes Blood Gas Notified Whom MERINO Blood Gas Notified Time 15:02:31 Rhythm Strip Rhythm Strip: Sinus Rhythm Rate: 92 Ectopy: None Imaging Radiology Impression Chest X-Ray 12/02/23 14:53 IMPRESSION: Bilateral effusions and a right lower lobe infiltrate. Electronically Signed: Mikael Beth MD at 15:17 EDT , Chest X-Ray 12/02/23 17:02 IMPRESSION: Pulmonary findings appear worse. Electronically Signed: Mikael Beth MD at 18:11 EDT , Charges/Coding Procedures Hospitalists Procedures: [id number] Critical Care 1st Hr
--- NOTE | 2023-12-03 08:13 | ECHOCS_ITS ---
Reason For Study: DYSPNEA Procedure This was a 2D Doppler, Color Flow transthoracic echocardiogram. The study was technically difficult. Contrast injection was performed. Exam performed portable in ICU/CCU. Left Ventricle Normal LV size. Left ventricular systolic function is normal. The left ventricular ejection fraction is 70 %. Stage 1 diastolic dysfunction. No regional wall motion abnormalities noted. Right Ventricle Normal RV size. Normal systolic function. Pulmonic Valve The pulmonic valve is not well visualized. Great Vessels Normal aortic root. Pericardium/Pleural No pericardial effusion. Medication Diluted definity 1.5ml given slow IV push to enhance endocardial definition. MMode/2D Measurements & Calculations LAV(MOD-sp4): 84.7 ml SV(MOD-sp4): 63.8 ml LVAd ap4: 31.8 cm2 LVLd ap4: 9.0 cm EDV(MOD-sp4): 93.3 ml EDV(sp4-el): 95.6 ml LVAs ap4: 16.0 cm2 LVLs ap4: 7.7 cm ESV(MOD-sp4): 29.5 ml ESV(sp4-el): 28.2 ml EF(MOD-sp4): 68.3 % EF(sp4-el): 70.5 % SV(sp4-el): 67.5 ml LA dimension(2D): 4.2 cm LA A4 area: 26.3 cm2 TAPSE: 2.2 cm RA A4 area: 15.0 cm2 Time Measurements MV dec time: 0.34 sec Doppler Measurements & Calculations MV E max kenan: 67.7 cm/sec Lat Peak E' Kenan: 7.7 cm/sec Med Peak E' Kenan: 4.6 cm/sec MV A max kenan: 82.4 cm/sec E/E' lat: 8.8 E/E' med: 14.8 MV E/A: 0.82 MV V2 max: 83.7 cm/sec MV dec slope: 197.2 cm/sec2 Ao V2 max: 144.5 cm/sec MV max P.8 mmHg Ao max P.4 mmHg MV V2 mean: 51.7 cm/sec Ao V2 mean: 103.1 cm/sec MV mean P.2 mmHg Ao mean P.8 mmHg MV V2 VTI: 26.3 cm Ao V2 VTI: 34.6 cm AV (velocity ratio): 0.90 LV V1 max: 139.1 cm/sec LV V1 max P.7 mmHg LV V1 mean P.2 mmHg LV V1 mean: 94.4 cm/sec LV V1 VTI: 31.1 cm ECHO/Echo Complete W/ Contrast Interpretation Summary Normal LV size. Left ventricular systolic function is normal. The left ventricular ejection fraction is 70 %. Stage 1 diastolic dysfunction. Contrast injection was performed. Ordering Physician: Bret Lobo Referring Physician: Derek Singh Chi Performed By: Nina Can RCS
[2023-12-03 08:25] LABS: Bedside Glucose 206 mg/dL (74-106)
[2023-12-03] MEDS: Vancomycin HCl 1,250 MG in 0.9% Normal Saline (250mL Bag) 250 ML 167 MG IV (09:27)
[2023-12-03] MEDS: APIXABAN 2.5 MG TABLET (WCH) GT ×2 (09:39→21:06)
[2023-12-03] MEDS: Senna/Docusate Sodium 1 Tablet GT ×2 (09:40→21:06)
--- NOTE | 2023-12-03 09:43 | PCM.RX.CS ---
Consult Antibiotic Management Pharmacy has been consulted to manage selected antibiotic: Vancomycin Type of Intervention Type of Consult: New start Suspected Infection Suspected Infection: Pneumonia Labs Labs: Sodium 146 mmol/L (136-145) H 12/03/23 03:50 Potassium 4.3 mmol/L (3.5-5.1) 12/03/23 03:50 Chloride 117 mmol/L (98-107) H 12/03/23 03:50 Carbon Dioxide 22.0 mmol/L (21.0-32.0) 12/03/23 03:50 Anion Gap 7 (5-15) 12/03/23 03:50 BUN 63 mg/dL (7-18) H 12/03/23 03:50 Creatinine 2.29 mg/dL (0.70-1.30) H 12/03/23 03:50 Est GFR (MDRD) Af Amer 35 mL/min (>60) L 12/03/23 03:50 Est GFR (MDRD) Non-Af 29 mL/min (>60) L 12/03/23 03:50 BUN/Creatinine Ratio 27.5 RATIO (10-20) H 12/03/23 03:50 Glucose 333 mg/dL (74-106) H 12/03/23 03:50 Microbiology Microbiology: Microbiology 12/03/23 08:49 Urine Catheter - Chopra Legionella Antigen - Final 12/03/23 08:49 Urine Catheter - Chopra Streptococcus pneumoniae Antigen (M - Final 12/02/23 19:18 Wound - Nose Skin and Soft Tissue MRSA/MSSA (PCR - Final 12/02/23 15:27 Mucosa - Nose SARS-CoV-2, Influenza & RSV (PCR) - Final Pharmacy Plan for Drug Dosing Pharmacy Plan for Drug Dosing: NEW START IV VANCOMYCIN Consulting Physician: Sandrine Indication: Pneumonia Goal Trough: 15-20 mg/dL SrCr: 2.29 mg/dL CrCl: 22 mL/min Comments: Received 1250mg standard loading dose 12/02 @ 926 Vancomycin Dose: Will start 750mg Q24H 12/03 @ 0930 and get a level prior to 3rd total dose per policy. Pending Level: 12/05/23 @ 0900 Pharmacy Service will continue to monitor and adjust dosing as required.
[2023-12-03 09:58] LABS: Bedside Glucose 214 mg/dL (74-106)
[2023-12-03 10:31] LABS: Procalcitonin 4.32 ng/mL (0.00-0.09)
[2023-12-03] MEDS: Vital AF 1.2 Cal Liquid 1,000 ML 20 ML GT (10:39)
[2023-12-03] MEDS: Insulin Glargine-YFGN 100 UNIT/ML Pen 25 UNIT SC (10:47)
[2023-12-03] MEDS: Insulin Lispro 100 UNIT/ML INSULN.PEN SC ×3 (10:47→23:19)
[2023-12-03] MEDS: Pantoprazole Sodium 40 MG in 0.9% Normal Saline (100mL MB+) 100 ML 330 MG IV (10:52)
--- NOTE | 2023-12-03 11:18 | CASEMGMT ---
Pt is currently intubated and sedated and is unable to answer this RN CM questions for assessment. There is currently no family in the pt room. TC to pt NOK on File (Daughter - Linda Hendrickson). No answer at this time. Will continue to follow.
[2023-12-03] MEDS: Piperacil/Tazobactam 3.375 GM in 0.9% Normal Saline (50mL MB+) 50 ML IV ×2 (11:19→21:07)
[2023-12-03] MEDS: 0.9% Saline Lock 10 ML Syringe IV (11:19)
[2023-12-03 11:21] LABS: Bedside Glucose 160 mg/dL (74-106)
--- NOTE | 2023-12-03 12:58 | CASEMGMT ---
Addendum entered by Graciela Waterman 12/04/23 11:44: [facility] states that the pt is active with their services. Addendum entered by Graciela Waterman 12/03/23 13:11: Concepción from [facility] states that the pt is not active with their services. Will follow. Original Note: RN CM Assessment Pt is currently sedated and intubated and is unable to answer this RN CM questions for assessment. TC to pt NARESH (Daughter - Linda). Linda states that she is willing to help answer this RN CM questions for initial assessment. Care providers, pharmacy, and demographics verified. Admitting dx:SOB LACE Strata: 2 PCP: Francisco Specialists: SHANE Preferred Pharmacy: [facility] Insurance: [facility] Prescription Benefit: Yes LNOK: Linda Hendrickson (Daughter) Living Arrangements: Per the pt daughter, the pt lives alone in a ground level apartment with a ramp to enter. ADLs/IADLs: Linda states that the pt is normally independent with ADLs and is mod ind with IADLs. Linda states that the pt has an aide that comes to help him once per week and also that he has a nurse that comes every Sunday to help manage his medications. Pt daughter states that she believes this is through [facility]. TC to [facility] to see if the pt is active with their services. No answer, message left. Transportation: Linda states that the pt normally drives. Pt daughter states that she can also provide transportation if needed DME: BGM and supplies. FWW. Cane. Walk in shower with GB and chair. Medical alert button. Linda denies further current DME uses. CM to follow O2 demands. HHC/SNF: States history at [facility] and [facility] Plan: TBD. Anticipate SNF vs Home with HHC. Today is VD #1. CM and SW to follow to decipher the safest DC plan moving forward. Uri Waterman RN, CM
[2023-12-03 13:32] LABS: BNP,B-Type NATRIURETIC PEPTIDE 142.4 pg/mL (0-100)
[2023-12-03 14:25] LABS: Pathologist Review Reviewed
[2023-12-03] MEDS: fentaNYL drip 100 ML 7.5 MCG CONT INF (14:54)
[2023-12-03 18:30] LABS: Bedside Glucose 267 mg/dL (74-106)
[2023-12-03] MEDS: Mirtazapine 15 MG Tablet GT (21:06)
[2023-12-03] MEDS: Atorvastatin Calcium 40 MG Tablet GT (21:06)
[2023-12-03 23:40] LABS: Bedside Glucose 319 mg/dL (74-106)
[2023-12-04] VITALS (38 sets, daily range): BP systolic 90–145; BP diastolic 41–85; PULSE 70–104; RESP 12–29; TEMP 37.2–37.9; O2SAT 85–97; BMI 29.4
[2023-12-04] MEDS: Propofol 10MG/Ml 1,000 MG/100 ML Bottle 4.9 MG CONT INF (02:38)
[2023-12-04 03:22] LABS: Absolute Lymphocyte Count 0.29 X10^3/uL (0.83-4.51); Absolute Neutrophil Count 16.8 X10^3/uL (2.0-7.7); Basophil% 0.6 % (0-1); Hematocrit 36.8 % (40-54); Hemoglobin 11.2 g/dL (13.0-16.5); Lymphocyte # 0.29 X10^3/ul (0.83-4.51); Lymphocyte % 1.6 % (19-41); Mean Corp Hgb Conc 30.4 g/dL (32-36); Mean Corpuscular Hgb 30.5 pg (27.0-32.0); Mean Corpuscular Volume 100.3 fL (80-94); Mean Platelet Vol. 9.7 fl (6.2-12.0); Monocyte# 0.51 X10^3/uL; Monocyte% 2.9 % (0-10); NRBC Flagged by Analyzer 0.1 % (0-5); Neutrophil # 16.75 X10^3/uL (2.7-7.7); Neutrophil % 93.6 % (47-70); POSITIVE DIFFERENTIAL YES; POSITIVE MORPHOLOGY YES; Platelet Count 286 K/mm3 (150-450); RBC Distribution Width CV 16.7 % (11.6-14.6); RBC Distribution Width SD 61.1 fl (35.1-43.9); Red Blood Count 3.67 M/mm3 (4.6-6.2); White Blood Count 17.9 K/mm3 (4.4-11.0)
[2023-12-04 03:56] LABS: Anion Gap 7 (5-15); BUN 70 mg/dL (7-18); BUN/Creat Ratio 32.3 RATIO (10-20); Calcium,Total 8.4 mg/dL (8.5-10.1); Chloride 115 mmol/L (98-107); Creatinine, Serum 2.17 mg/dL (0.70-1.30); EST Glomerular Filtration Rate 31 mL/min (>60); Est Glom Filt Rate - Afr Amer 37 mL/min (>60); Estimated Creatinine Clearance 24.04 ml/min; Glucose 350 mg/dL (74-106); Magnesium 2.7 mg/dL (1.6-2.6); Phosphorus 3.2 mg/dL (2.5-4.9); Potassium 4.9 mmol/L (3.5-5.1); Sodium Level 144 mmol/L (136-145)
[2023-12-04 04:37] LABS: Differential Indicated SCAN CRITERIA MET
[2023-12-04] MEDS: 0.9% Saline Lock 10 ML Syringe IV (05:19)
[2023-12-04] MEDS: Piperacil/Tazobactam 3.375 GM in 0.9% Normal Saline (50mL MB+) 50 ML IV ×3 (05:20→20:58)
[2023-12-04] MEDS: Levothyroxine 50 MCG Tablet GT (05:20)
[2023-12-04] MEDS: Insulin Lispro 100 UNIT/ML INSULN.PEN SC ×4 (05:25→22:55)
[2023-12-04] MEDS: TITRATION PARAMETER CHANGE 1 EACH IV (05:41)
[2023-12-04 05:45] LABS: Bedside Glucose 304 mg/dL (74-106)
[2023-12-04] MEDS: fentaNYL drip 100 ML 7.5 MCG CONT INF ×2 (06:15→19:35)
--- NOTE | 2023-12-04 07:11 | PN.HOSP_ITS ---
Reason for Visit Reason for Visit: Diagnoses Sepsis, unspecified organism (12/02/23) Respiratory failure, unspecified, unspecified whether with hypoxia or hypercapnia (12/02/23) Hypoxemia (12/02/23) Subjective Subjective Patient remains on the vent, did fail his weaning trial this morning Objective Data Objective Data Vital Signs: Vital Signs Temp Pulse Resp BP Pulse Ox O2 Del Method O2 Flow Rate 99.4 F H 74 18 118/47 L 92 Mechanical Ventilator 2 12/04/23 07:00 12/04/23 07:00 12/04/23 07:00 12/04/23 07:00 12/04/23 07:00 12/04/23 07:00 12/03/23 07:00 FiO2 45 12/04/23 07:00 Oxygen Flow Rate (L/min) 2 Oxygen Delivery Method Mechanical Ventilator Weight: 85 kg Body Mass Index (BMI) 29.4 Intake & Output: Intake and Output for Last 24 Hours 12/02/23 12/03/23 12/04/23 23:59 23:59 23:59 Intake Total 2499.43 / 2516.26 1051.11 / 1063.51 546.95 / 546.95 Output Total 450 / 450 940 / 940 250 / 250 Balance 2049.43 / 2066.26 111.11 / 123.51 296.95 / 296.95 Lab / Micro Data 12/04/23 03:10 12/04/23 03:10 Labs: Laboratory Results - last 24 hr 12/02/23 14:50: Diff Path Review Reviewed 12/03/23 03:50: Hemoglobin A1c 7.0 H, B-Natriuretic Peptide 142.4 H 12/03/23 06:43: POC Glucose 243 H 12/03/23 07:03: POC Glucose 197 H 12/03/23 08:03: POC Glucose 206 H 12/03/23 09:16: POC Glucose 214 H 12/03/23 09:38: Procalcitonin 4.32 H, Free T4 1.30 12/03/23 10:46: POC Glucose 160 H 12/03/23 17:55: POC Glucose 267 H 12/03/23 23:16: POC Glucose 319 H 12/04/23 03:10: WBC 17.9 H, RBC 3.67 L, Hgb 11.2 L, Hct 36.8 L, MCV 100.3 H, MCH 30.5, MCHC 30.4 L, RDW Std Deviation 61.1 H, RDW Coeff of Ancelmo 16.7 H, Plt Count 286, MPV 9.7, Immature Gran % (Auto) 1.300 H, Neut % (Auto) 93.6 H, Lymph % (Auto) 1.6 L, [place] % (Auto) 2.9, Eos % (Auto) 0.0, Baso % (Auto) 0.6, Absolute Neuts (auto) 16.8 H, Absolute Lymphs (auto) 0.29 L, Nucleated RBC % 0.1, Sodium 144, Potassium 4.9, Chloride 115 H, Carbon Dioxide 22.0, Anion Gap 7, BUN 70 H, Creatinine 2.17 H, Estim Creat Clear Calc 24.04, Est GFR (MDRD) Af Amer 37 L, E st GFR (MDRD) Non-Af 31 L, BUN/Creatinine Ratio 32.3 H, Glucose 350 H, Calcium 8.4 L, Phosphorus 3.2, Magnesium 2.7 H 12/04/23 05:23: POC Glucose 304 H Micro: Microbiology 12/02/23 17:00 Urine Catheter - Chopra Urine Culture - Preliminary Yeast Like Organism 12/02/23 17:05 Sputum, Induced/Lukens Gram Stain - Final 12/02/23 17:05 Sputum, Induced/Lukens Respiratory Culture - Preliminary GNR lactose english composition instructor 12/03/23 08:29 Mucosa - Nasopharyngeal Respiratory Panel (PCR) - Final 12/03/23 08:49 Urine Catheter - Chopra Legionella Antigen - Final 12/03/23 08:49 Urine Catheter - Chopra Streptococcus pneumoniae Antigen (M - Final 12/02/23 19:18 Wound - Nose Skin and Soft Tissue MRSA/MSSA (PCR - Final 12/02/23 15:27 Mucosa - Nose SARS-CoV-2, Influenza & RSV (PCR) - Final Radiography Diagnostic Testing: Radiology Impression Echocardiogram 12/03/23 08:13 Interpretation Summary Normal LV size. Left ventricular systolic function is normal. The left ventricular ejection fraction is 70 %. Stage 1 diastolic dysfunction. Contrast injection was performed. Ordering Physician: Bret Lobo Referring Physician: Derek Singh Chi Performed By: Nina Can RCS Rhythm Strip Rhythm Strip: Sinus Rhythm Rate: 92 Ectopy: None Physical Exam Narrative GENERAL: Intubated on the vent HEENT: Atraumatic; normocephalic EYES; Anicteric, Normal Conjunctiva NECK; supple, normal thyroid, RESPIRATORY: Diminished to auscultation CARDIOVASCULAR: Regular S1 S2, GI: soft, normoactive bowel sounds, : No Renal angle tenderness; EXTREMITIES: No edema, no clubbing, MUSCULOSKELETAL: no muscle wasting NEURO: Intubated on the vent SKIN: No Rash PSYCH; unable to assess with patient under sedation Assessment & Plan Assessment/Plan (1) Respiratory failure: (2) Hypoxia: PLAN: Plan Patient is an 88-year-old gentleman with multiple comorbidities presented with progressive shortness of breath imaging studies demonstrated bilateral pleural effusion and multifocal pneumonia. Was also found to have elevated lactic acid level. An assessment of sepsis secondary to pneumonia made admitted to the intensive care unit for further management 1. Sepsis (present on admission) ? Secondary to multifocal pneumonia as well as acute cystitis. Patient had SIRS criteria as well as evidence of endorgan dysfunction including lactic acidosis as well as respiratory failure requiring BiPAP. Patient admitted to the intensive care unit treatment initiated per protocol ? 12/04/2023. Patient cultures so far positive for gram-negative rods in sputum and yeastlike organisms in his urine. WBC count trending down. 2. Pneumonia ? With suspected multidrug-resistant organiss. Chest x-ray on admission bilateral effusions and a right lower lobe infiltrate. Patient was admitted to the intensive care unit given worsening respiratory status managed with ceftriaxone and azithromycin in addition to noninvasive ventilation with BiPAP. Did adjust patient antibiotic therapy with broadening given his worsening respiratory status ? 12/04/2023; patient remains on the vent 3. Acute hypoxic respiratory failure ? Secondary to pneumonia patient managed with antibiotics in addition to noninvasive ventilation with BiPAP and later transition to mechanical ventilation due to worsening respiratory status. Consult placed to machine records units supervisor. Discussed ? 12/04/2023; patient did fail his weaning trial this a.m. 4. Newly diagnosed diabetes mellitus type II ? Patient started on insulin drip with with plans to transition to long-acting insulin once of the vent. ? 12/04/2023; insulin drip discontinued the day prior, Switched to long-acting insulin with sliding scale coverage. With patient still remaining hyperglycemic further adjustment made to patient insulin regimen 5. Acute cystitis ? Present on admission patient is on Rocephin cultures sent 6. Paroxysmal A-fib ? Rate controlled on amiodarone on systemic anticoagulation with apixaban continued 7. Dyslipidemia -Patient is on statin therapy, continued at home dose 8. Hypertension - Blood pressure controlled, home medications continued with dose adjustment as needed 9. Hypothyroidism - Patient is on levothyroxine home dose continued 10.Acute kidney injury superimposed on chronic kidney disease stage III ? Patient baseline creatinine from 10/30/2023 was 1.78 creatinine on admission was 3.09 potential nephrotoxic medications discontinued resuscitated with IV fluid with subsequent monitoring of electrolyte ? 12/04/2023; no significant change in kidney function will continue with daily monitoring with BMPs 11. Depression ? Patient is on mirtazapine 12. DVT prophylaxis ? On apixaban Time spent in the patient's overall evaluation,decision-making process, review of diagnostic data, adjustment of management, discussion with other providers, nursing nursing and ancillary staff involved in patient's care documentation, 52 Minutes Charges/Coding Visit Charges Inpatient E&M: [id number] [place] [id number]
--- NOTE | 2023-12-04 07:12 | PCM.PN.INT ---
Assessment & Plan Assessment/Plan (1) Sepsis: (2) Respiratory failure: PLAN: Plan RECOMMENDATIONS: 1. Continue assist-control mode mechanical ventilation. Wean FiO2 and PEEP to maintain saturations at or above 90%. 2. Continue Zosyn. Okay to discontinue vancomycin from my perspective. 3. Continue basal and sliding scale insulin coverage. 4. Continue tube feeding as tolerated. 5. Continue Eliquis. 6. Continue appropriate GI prophylaxis. IMPRESSIONS: 1. Sepsis The patient presented to the hospital with sepsis due to gram-negative pneumonia with acute sepsis related organ dysfunction as evidenced by lactic acidemia and acute respiratory failure requiring invasive mechanical ventilatory support. The patient has been maintained on appropriate antimicrobial therapy and remains hemodynamically stable. 2. Acute respiratory failure with hypoxemia The patient was initially intubated after he failed to respond to noninvasive positive pressure ventilatory support. Chest imaging was concerning for bilateral pleural effusions and pneumonia. The patient does have evidence of heart failure with preserved ejection fraction on echocardiogram. At this time, recommend continuing antimicrobial therapy to address gram-negative's isolated in sputum. Although there is repeated documentation that the patient has COPD, prior pulmonary function studies in 2022 failed to demonstrate evidence of COPD. The patient will be continued on assist-control mode of mechanical ventilation. FiO2 and PEEP will be weaned as tolerated. Will plan to continue daily attempts at spontaneous breathing trials. 3. Acute on chronic kidney disease Improving. Most likely prerenal in etiology. The patient did respond to fluid resuscitation with improvement in creatinine noted. Continue to monitor urine output. No current indication for renal replacement therapy. 4. History of coronary artery disease/paroxysmal atrial fibrillation/hypertension Continue current medical therapy. Recommend holding home antihypertensives for now. 5. History of diabetes mellitus/hypothyroidism Complicates care, management, recovery and prognosis. Continue basal and sliding scale insulin coverage. TIME: 33 minutes of critical care time, independent of procedures, was spent addressing the patient's sepsis, acute respiratory failure with hypoxemia, acute on chronic kidney disease, diabetes mellitus, review of all data and collaboration with the care team. Subjective Subjective The patient was seen and examined at the bedside this morning. Events from the last 24 hours have been reviewed. The patient currently has a low-grade fever but remains otherwise hemodynamically stable on assist-control mode mechanical ventilation with an FiO2 requirement of 45%. The patient failed his spontaneous breathing trial this morning due to hypoxemia. He continues to have endotracheal tube secretions, although they are improving. White count this morning is elevated at 18,000. Creatinine has improved to 2.17. The patient has been tolerant of tube feeding. Glucose is elevated at 350. Objective Data Objective Data The patient's most recent lab work, culture data and imaging studies have all been personally reviewed. Surface echocardiogram demonstrated normal LV size with an ejection fraction of 70% and stage I diastolic dysfunction. Preliminary sputum culture is positive for gram-negative rods, lactose or director. Vital Signs: Vital Signs Temp Pulse Resp BP Pulse Ox O2 Del Method O2 Flow Rate 99.4 F H 74 18 118/47 L 92 Mechanical Ventilator 2 12/04/23 07:00 12/04/23 07:00 12/04/23 07:00 12/04/23 07:00 12/04/23 07:00 12/04/23 07:00 12/03/23 07:00 FiO2 45 12/04/23 07:00 Oxygen Flow Rate (L/min) 2 Oxygen Delivery Method Mechanical Ventilator Weight: 187 lb 6.287 oz Body Mass Index (BMI) 29.4 Intake & Output: Intake and Output for Last 24 Hours 12/02/23 12/03/23 12/04/23 23:59 23:59 23:59 Intake Total 2499.43 / 2516.26 1051.11 / 1063.51 546.95 / 546.95 Output Total 450 / 450 940 / 940 250 / 250 Balance 2049.43 / 2066.26 111.11 / 123.51 296.95 / 296.95 Lab / Micro Data Attestation: I reviewed the patient's lab results. 12/04/23 03:10 12/04/23 03:10 Labs: Laboratory Results - last 24 hr 12/02/23 14:50: Diff Path Review Reviewed 12/03/23 03:50: Hemoglobin A1c 7.0 H, B-Natriuretic Peptide 142.4 H 12/03/23 06:43: POC Glucose 243 H 12/03/23 07:03: POC Glucose 197 H 12/03/23 08:03: POC Glucose 206 H 12/03/23 09:16: POC Glucose 214 H 12/03/23 09:38: Procalcitonin 4.32 H, Free T4 1.30 12/03/23 10:46: POC Glucose 160 H 12/03/23 17:55: POC Glucose 267 H 12/03/23 23:16: POC Glucose 319 H 12/04/23 03:10: WBC 17.9 H, RBC 3.67 L, Hgb 11.2 L, Hct 36.8 L, MCV 100.3 H, MCH 30.5, MCHC 30.4 L, RDW Std Deviation 61.1 H, RDW Coeff of Ancelmo 16.7 H, Plt Count 286, MPV 9.7, Immature Gran % (Auto) 1.300 H, Neut % (Auto) 93.6 H, Lymph % (Auto) 1.6 L, [place] % (Auto) 2.9, Eos % (Auto) 0.0, Baso % (Auto) 0.6, Absolute Neuts (auto) 16.8 H, Absolute Lymphs (auto) 0.29 L, Nucleated RBC % 0.1, Sodium 144, Potassium 4.9, Chloride 115 H, Carbon Dioxide 22.0, Anion Gap 7, BUN 70 H, Creatinine 2.17 H, Estim Creat Clear Calc 24.04, Est GFR (MDRD) Af Amer 37 L, Est GFR (MDRD) Non-Af 31 L, BUN/Creatinine Ratio 32.3 H, Glucose 350 H, Calcium 8.4 L, Phosphorus 3.2, Magnesium 2.7 H 12/04/23 05:23: POC Glucose 304 H Micro: Microbiology 12/02/23 17:00 Urine Catheter - Chopra Urine Culture - Preliminary Yeast Like Organism 12/02/23 17:05 Sputum, Induced/Lukens Gram Stain - Final 12/02/23 17:05 Sputum, Induced/Lukens Respiratory Culture - Preliminary GNR lactose or director 12/03/23 08:29 Mucosa - Nasopharyngeal Respiratory Panel (PCR) - Final 12/03/23 08:49 Urine Catheter - Chopra Legionella Antigen - Final 12/03/23 08:49 Urine Catheter - Chopra Streptococcus pneumoniae Antigen (M - Final 12/02/23 19:18 Wound - Nose Skin and Soft Tissue MRSA/MSSA (PCR - Final 12/02/23 15:27 Mucosa - Nose SARS-CoV-2, Influenza & RSV (PCR) - Final Radiography Diagnostic Testing: Radiology Impression Echocardiogram 12/03/23 08:13 Interpretation Summary Normal LV size. Left ventricular systolic function is normal. The left ventricular ejection fraction is 70 %. Stage 1 diastolic dysfunction. Contrast injection was performed. Ordering Physician: Bret Lobo Referring Physician: Derek Singh Chi Performed By: Nina Can RCS Rhythm Strip Rhythm Strip: Sinus Rhythm Rate: 92 Ectopy: None Physical Exam Const Constitutional Narrative: Intubated, sedated and mechanically ventilated. No ventilator dyssynchrony noted. HEENT normocephalic and head/scalp atraumatic Mouth: endotracheal tube in place and OG tube in place Eyes PERRL and conjunctivae normal Neck supple General: trachea midline Chest inspection of chest normal Resp normal respiratory effort Auscultation: rhonchi and diminished lung sounds; Negative for rales or wheezes Cardio regular rate and regular rhythm GI normal to inspection, nondistended, normoactive bowel sounds Extremity General Extremity: edema; Negative for clubbing Skin no rashes or lesions noted Neuro Sensorium / Orientation: sedated on vent Charges/Coding Procedures Hospitalists Procedures: 36087 Critical Care 1st Hr
[2023-12-04] MEDS: Senna/Docusate Sodium 1 Tablet GT ×2 (09:20→20:59)
[2023-12-04] MEDS: APIXABAN 2.5 MG TABLET (WCH) GT ×2 (09:20→20:58)
[2023-12-04] MEDS: Chlorhexidine 15 ML PO ×2 (09:21→20:59)
[2023-12-04] MEDS: Pantoprazole Sodium 40 MG in 0.9% Normal Saline (100mL MB+) 100 ML 330 MG IV (09:26)
[2023-12-04] MEDS: Nystatin Powder 15gm Bottle 1 APPLIC TOPICAL ×2 (11:17→20:59)
[2023-12-04] MEDS: Insulin Glargine-YFGN 100 UNIT/ML Pen 25 UNIT SC ×2 (11:17→22:55)
[2023-12-04] MEDS: Vital AF 1.2 Cal Liquid 1,000 ML 60 ML GT (11:21)
[2023-12-04 11:44] LABS: Bedside Glucose 403 mg/dL (74-106)
[2023-12-04] MEDS: Propofol 10MG/Ml 1,000 MG/100 ML Bottle 5.1 MG CONT INF (15:04)
[2023-12-04 17:35] LABS: Bedside Glucose 362 mg/dL (74-106)
--- NOTE | 2023-12-04 17:41 | EKG12_ITS ---
Test Reason : ARRYTHMIA Blood Pressure : / mmHG Vent. Rate : 094 BPM Atrial Rate : 000 BPM P-R Int : 000 ms QRS Dur : 100 ms QT Int : 380 ms P-R-T Axes : 000 021 007 degrees QTc Int : 475 ms Atrial fibrillation Septal infarct (cited on or before 25-OCT-2001) Abnormal ECG When compared with ECG of 02-DEC-2023 14:53, Atrial fibrillation has replaced Sinus rhythm Confirmed by Graeme Martel ([id number]), assistant film editor WENDY MORE ([id number]) on 12/06/2023 2:25:49 PM Referred By: INDER Confirmed By:Graeme Martel
--- NOTE | 2023-12-04 17:53 | RAD_ITS ---
STUDY: X-RAY CHEST REASON FOR EXAM: Male, 88 years old. Hypoxia TECHNIQUE: Single AP portable view of the chest. COMPARISON: December 02, 2023 FINDINGS: Endotracheal tube, 3 cm above the caroline. Feeding tube extends the stomach in the left upper abdomen. There are monitoring devices. There are right greater than left mid and lower lung airspace opacities. There is moderate right pleural effusion. Normal size heart. Normal mediastinum and binu. Normal visualized pulmonary arteries. There is atherosclerotic calcification of the aortic arch with tortuosity. There is demineralization of the osseous structures. Normal visualized ribs, clavicles, and shoulders. There is no demonstrated abnormality of the visualized soft tissue structures of the upper abdomen. RAD/Chest 1 View (Portable) IMPRESSION: Stable tubes and catheters. Stable right greater than left pneumonia or edema and pleural effusion. Electronically Signed: Parish Reilly MD at 20:02 EDT ,
[2023-12-04 18:00] LABS: Allen Test Positive; Base Excess -5 mmol/L (-2 to +2); Bicarbonate 20.5 mmol/L (22-26); Blood Gas Specimen Type ART; Mode AC; O2 Delivery Device Adult Vent; PEEP 7; PO2 62 mmHG (75-100); RR 12; SITE R Radial; SO2 90 % (95-99); Total Carbon Dioxide 22 mmol/L; pCO2 39.1 mmHg (35-45); pH 7.33 (7.35-7.45)
[2023-12-04] MEDS: Amiodarone 200 MG Tablet PO (18:03)
[2023-12-04] MEDS: Mirtazapine 15 MG Tablet GT (20:58)
[2023-12-04] MEDS: Atorvastatin Calcium 40 MG Tablet GT (20:58)
[2023-12-04 23:14] LABS: Bedside Glucose 308 mg/dL (74-106)
[2023-12-05] VITALS (39 sets, daily range): BP systolic 80–130; BP diastolic 40–73; PULSE 63–112; RESP 12–32; TEMP 37.9–38.4; O2SAT 85–97; BMI 29.9
[2023-12-05 03:44] LABS: Absolute Lymphocyte Count 0.49 X10^3/uL (0.83-4.51); Absolute Neutrophil Count 14.1 X10^3/uL (2.0-7.7); Basophil# 0.07 X10^3/uL; Basophil% 0.4 % (0-1); Eosinophil# 0.09 X10^3/uL; Eosinophils% 0.6 % (0-5); Hematocrit 35.6 % (40-54); Hemoglobin 10.7 g/dL (13.0-16.5); Lymphocyte # 0.49 X10^3/ul (0.83-4.51); Lymphocyte % 3.1 % (19-41); Mean Corp Hgb Conc 30.1 g/dL (32-36); Mean Corpuscular Hgb 30.2 pg (27.0-32.0); Mean Corpuscular Volume 100.6 fL (80-94); Mean Platelet Vol. 10.2 fl (6.2-12.0); Monocyte# 0.63 X10^3/uL; NRBC Flagged by Analyzer 0.3 % (0-5); Neutrophil # 14.06 X10^3/uL (2.7-7.7); Neutrophil % 90.4 % (47-70); POSITIVE DIFFERENTIAL YES; POSITIVE MORPHOLOGY YES; Platelet Count 254 K/mm3 (150-450); RBC Distribution Width CV 16.9 % (11.6-14.6); RBC Distribution Width SD 61.9 fl (35.1-43.9); Red Blood Count 3.54 M/mm3 (4.6-6.2); White Blood Count 15.6 K/mm3 (4.4-11.0)
[2023-12-05 03:50] LABS: Differential Indicated SCAN CRITERIA MET
[2023-12-05] MEDS: 0.9% Saline Lock 10 ML Syringe IV (03:50)
[2023-12-05] MEDS: Vital AF 1.2 Cal Liquid 1,000 ML 60 ML GT (03:50)
[2023-12-05 03:51] LABS: Differential Comment SCANNED
[2023-12-05] MEDS: Piperacil/Tazobactam 3.375 GM in 0.9% Normal Saline (50mL MB+) 50 ML IV ×2 (05:08→13:00)
[2023-12-05] MEDS: Levothyroxine 50 MCG Tablet GT (05:08)
[2023-12-05] MEDS: Insulin Lispro 100 UNIT/ML INSULN.PEN SC ×3 (05:08→18:09)
[2023-12-05 05:09] LABS: Anion Gap 8 (5-15); BUN 86 mg/dL (7-18); Calcium,Total 8.1 mg/dL (8.5-10.1); Chloride 115 mmol/L (98-107); Creatinine, Serum 2.61 mg/dL (0.70-1.30); EST Glomerular Filtration Rate 25 mL/min (>60); Est Glom Filt Rate - Afr Amer 30 mL/min (>60); Estimated Creatinine Clearance 19.99 ml/min; Glucose 295 mg/dL (74-106); Potassium 4.6 mmol/L (3.5-5.1); Sodium Level 141 mmol/L (136-145)
[2023-12-05] MEDS: Nystatin Powder 15gm Bottle 1 APPLIC TOPICAL ×3 (05:10→20:33)
[2023-12-05 05:31] LABS: Bedside Glucose 262 mg/dL (74-106)
[2023-12-05] MEDS: fentaNYL drip 100 ML 10 MCG CONT INF ×2 (05:42→12:25)
--- NOTE | 2023-12-05 06:50 | PCM.PN.INT ---
Assessment & Plan Assessment/Plan (1) Sepsis: (2) Respiratory failure: PLAN: Plan RECOMMENDATIONS: 1. Continue assist-control mode mechanical ventilation. Wean FiO2 and PEEP to maintain saturations at or above 90%. 2. Obtain follow-up chest x-ray this morning. 3. Transition from Eliquis to weight-based heparin infusion. 4. Obtain renal ultrasound. 5. Attempt gentle diuresis. 6. Increase basal insulin and continue sliding scale coverage. 7. Continue tube feeding as tolerated. 8. Continue appropriate GI prophylaxis. IMPRESSIONS: 1. Sepsis The patient presented to the hospital with sepsis due to Enterobacter pneumonia with acute sepsis related organ dysfunction as evidenced by lactic acidemia and acute respiratory failure requiring invasive mechanical ventilatory support. The patient has been maintained on appropriate antimicrobial therapy and remains hemodynamically stable. 2. Acute respiratory failure with hypoxemia The patient was initially intubated after he failed to respond to noninvasive positive pressure ventilatory support. Chest imaging was concerning for bilateral pleural effusions and pneumonia. The patient does have evidence of heart failure with preserved ejection fraction on echocardiogram. At this time, recommend continuing antimicrobial therapy to address gram-negative's isolated in sputum. Although there is repeated documentation that the patient has COPD, prior pulmonary function studies in 2022 failed to demonstrate evidence of COPD. The patient will be continued on assist-control mode of mechanical ventilation. FiO2 and PEEP will be weaned as tolerated. Will attempt gentle diuresis today as tolerated by hemodynamics and renal function. 3. Acute on chronic kidney disease Most likely prerenal in etiology. The patient did respond to fluid resuscitation with improvement in creatinine noted. Continue to monitor urine output. No current indication for renal replacement therapy. Renal ultrasound will be obtained. 4. History of coronary artery disease/paroxysmal atrial fibrillation/hypertension Continue current medical therapy. Recommend holding home antihypertensives for now. 5. History of diabetes mellitus/hypothyroidism Complicates care, management, recovery and prognosis. Continue basal and sliding scale insulin coverage. Continue tube feeding as tolerated. TIME: 34 minutes of critical care time, independent of procedures, was spent addressing the patient's sepsis, acute respiratory failure with hypoxemia, acute on chronic kidney disease, diabetes mellitus, review of all data and collaboration with the care team. Subjective Subjective The patient was seen and examined at the bedside this morning. Events from the last 24 hours have been reviewed. The patient continues to have low-grade fevers, but remains otherwise hemodynamically stable. Overnight, the patient did develop atrial fibrillation and worsening hypoxemia, in the setting of increased endotracheal tube secretions. The patient remains on assist-control mode mechanical ventilation with an FiO2 requirement of 100% and PEEP of 10. His plateau pressures this morning were approximately 25 cm of water. White count has improved to 15,000. Creatinine has increased to 2.61. Objective Data Objective Data The patient's most recent lab work, culture data and imaging studies have all been personally reviewed. Surface echocardiogram demonstrated normal LV size with an ejection fraction of 70% and stage I diastolic dysfunction. Sputum culture was positive for pansensitive Enterobacter. Vital Signs: Vital Signs Temp Pulse Resp BP Pulse Ox O2 Del Method O2 Flow Rate 100.5 F H 100 20 H 94/51 L 90 Mechanical Ventilator 2 12/05/23 05:00 12/05/23 06:00 12/05/23 06:00 12/05/23 06:00 12/05/23 06:00 12/05/23 06:00 12/03/23 07:00 FiO2 100 12/05/23 06:00 Oxygen Flow Rate (L/min) 2 Oxygen Delivery Method Mechanical Ventilator Weight: 191 lb 2.252 oz Body Mass Index (BMI) 29.9 Intake & Output: Intake and Output for Last 24 Hours 12/03/23 12/04/23 12/05/23 23:59 23:59 23:59 Intake Total 1051.11 / 1063.51 1642.60 / 1757.70 1331.20 / 1331.20 Output Total 940 / 940 650 / 650 75 / 75 Balance 111.11 / 123.51 992.60 / 1107.70 1256.20 / 1256.20 Lab / Micro Data Attestation: I reviewed the patient's lab results. 12/05/23 03:35 12/05/23 03:35 Labs: Laboratory Results - last 24 hr 12/04/23 11:15: POC Glucose 403 H 12/04/23 17:12: POC Glucose 362 H 12/04/23 22:53: POC Glucose 308 H 12/05/23 03:35: WBC 15.6 H, RBC 3.54 L, Hgb 10.7 L, Hct 35.6 L, MCV 100.6 H, MCH 30.2, MCHC 30.1 L, RDW Std Deviation 61.9 H, RDW Coeff of Ancelmo 16.9 H, Plt Count 254, MPV 10.2, Immature Gran % (Auto) 1.500 H, Neut % (Auto) 90.4 H, Lymph % (Auto) 3.1 L, [place] % (Auto) 4.0, Eos % (Auto) 0.6, Baso % (Auto) 0.4, Absolute Neuts (auto) 14.1 H, Absolute Lymphs (auto) 0.49 L, Nucleated RBC % 0.3, Differential Comment SCANNED, Sodium 141, Potassium 4.6, Chloride 115 H, Carbon Dioxide 18.0 L, Anion Gap 8, BUN 86 H, Creatinine 2.61 H, Estim Creat Clear Calc 19.99, Est GFR (MDRD) Af Amer 30 L, Est GFR (MDRD) Non-Af 25 L, BUN/Creatinine Ratio 33.0 H, Glucose 295 H, Calcium 8.1 L 12/05/23 05:06: POC Glucose 262 H Micro: Microbiology 12/02/23 14:50 Blood Culture (Wb) - Anticubital Right Blood Culture - Preliminary No growth in 48 hours. 12/02/23 14:40 Blood Culture (Wb) - Anticubital Left Blood Culture - Preliminary No growth in 48 hours. 12/02/23 17:00 Urine Catheter - Chopra Urine Culture - Final Presumptive C albicans 12/02/23 17:05 Sputum, Induced/Lukens Gram Stain - Final 12/02/23 17:05 Sputum, Induced/Lukens Respiratory Culture - Final Enterobacter cloacae complex 12/03/23 08:29 Mucosa - Nasopharyngeal Respiratory Panel (PCR) - Final 12/03/23 08:49 Urine Catheter - Chopra Legionella Antigen - Final 12/03/23 08:49 Urine Catheter - Chopra Streptococcus pneumoniae Antigen (M - Final 12/02/23 19:18 Wound - Nose Skin and Soft Tissue MRSA/MSSA (PCR - Final 12/02/23 15:27 Mucosa - Nose SARS-CoV-2, Influenza & RSV (PCR) - Final ABG Data ABG results: ABG 12/04/23 17:55 Specimen Type ART Sample Site R Radial pH 7.33 L Bicarbonate Actual 20.5 L Total CO2 22 Base Excess -5 L O2 Saturation 90 L O2 % 100.0 ABG pCO2 39.1 ABG pO2 62 L Nirmal Test Positive Respiration Rate 12 O2 Delivery Device Adult Vent Vent Mode AC Tidal Volume 450.0 POC PEEP 7 Radiography Diagnostic Testing: Radiology Impression Chest X-Ray 12/04/23 17:53 IMPRESSION: Stable tubes and catheters. Stable right greater than left pneumonia or edema and pleural effusion. Electronically Signed: Parish Reilly MD at 20:02 EDT Reading Location ID and State: [address] [place] [address] , Service support , Rhythm Strip Rhythm Strip: Sinus Rhythm Rate: 92 Ectopy: None Physical Exam Const Constitutional Narrative: Intubated, sedated and mechanically ventilated. No ventilator dyssynchrony noted. HEENT normocephalic and head/scalp atraumatic Mouth: endotracheal tube in place and OG tube in place Eyes PERRL and conjunctivae normal Neck supple General: trachea midline Chest inspection of chest normal Resp normal respiratory effort Auscultation: rhonchi and diminished lung sounds; Negative for rales or wheezes Cardio S1 normal heart sound and S2 normal heart sound Rhythm: abnormal rhythm GI normal to inspection, nondistended, normoactive bowel sounds Extremity General Extremity: edema; Negative for clubbing Skin no rashes or lesions noted Neuro Sensorium / Orientation: sedated on vent Charges/Coding Procedures Hospitalists Procedures: 39282 Critical Care 1st Hr
--- NOTE | 2023-12-05 06:53 | US_ITS ---
STUDY: RENAL ULTRASOUND - COMPLETE REASON FOR EXAM: Male, 88 years old. ELISEO TECHNIQUE: Ultrasound evaluation of the kidneys was performed with real-time and static echeverria-scale imaging. COMPARISON: Comparison is made with prior study dated February 10, 2022. FINDINGS: RIGHT KIDNEY: Normal location of the right kidney, which is normal in size. The right kidney measures 12 cm x 5.7 cm x 4.8 cm. There is a normal cortex of the right kidney. The renal cortex measures 1.6 cm. There is no right renal mass or cyst. There is evidence of a 1.6 cm intrarenal calculus. There is no right hydronephrosis. DISTAL RIGHT URETER: There is non-visualization of the distal right ureter. There is no demonstrated right ureterovesical junction calculus. There is a visualized right ureteral jet. LEFT KIDNEY: Normal location of the left kidney, which is normal in size. The left kidney measures 9.8 cm x 5.9 cm x 6.3 cm. There is a normal cortex of the left kidney. The renal cortex measures 1.0 cm. There is no left renal mass or cyst. There are no left renal calculi. There is moderate hydronephrosis of the left kidney. DISTAL LEFT URETER: There is non-visualization of the distal left ureter. There is no demonstrated left ureterovesical junction calculus. There is a visualized left ureteral jet. BLADDER: A Chopra catheter is seen within the urinary bladder. US/Kidney and Bladder IMPRESSION: Moderate degree of left hydronephrosis. Left intrarenal calculus. Electronically Signed: Jalen Rodriguez MD at 10:07 EDT ,
--- NOTE | 2023-12-05 06:55 | RAD_ITS ---
STUDY: X-RAY CHEST REASON FOR EXAM: Male, 88 years old patient with respiratory failure. TECHNIQUE: Single AP portable view of the chest. COMPARISON: December 04, 2023. FINDINGS: The tip of endotracheal tube is at the level of the aortic arch. Enteric tube is present with the tip in left upper quadrant. Cardiac monitoring leads are present. The lungs are expanded. There is heterogeneous right-sided airspace disease and left basilar airspace disease suggesting possible pneumonia. There appear to be small bilateral pleural effusions. There is borderline cardiomegaly. Normal mediastinum and binu. Normal visualized pulmonary arteries. There is atherosclerotic calcification of the aortic arch with tortuosity. There are diffuse degenerative changes of the visualized thoracic spine. Normal visualized ribs, clavicles, and shoulders. There is no demonstrated abnormality of the visualized soft tissue structures of the upper abdomen. RAD/Chest 1 View (Portable) IMPRESSION: Unchanged appearance to right greater than left airspace disease. Electronically Signed: Odette Waterman MD at 7:39 EDT ,
--- NOTE | 2023-12-05 07:07 | PCM.PN.HOSP ---
Reason for Visit Reason for Visit: Diagnoses Sepsis, unspecified organism (12/02/23) Respiratory failure, unspecified, unspecified whether with hypoxia or hypercapnia (12/02/23) Hypoxemia (12/02/23) Subjective Subjective Patient seen remains on the vent with increasing PEEP requirements. Patient also went into A-fib with RVR during the night back to sinus rhythm this a.m. Awake on the vent Objective Data Objective Data Vital Signs: Vital Signs Temp Pulse Resp BP Pulse Ox O2 Del Method O2 Flow Rate 100.7 F H 112 H 19 H 100/73 89 Mechanical Ventilator 2 12/05/23 07:00 12/05/23 07:00 12/05/23 07:00 12/05/23 07:00 12/05/23 07:00 12/05/23 07:00 12/03/23 07:00 FiO2 100 12/05/23 07:00 Oxygen Flow Rate (L/min) 2 Oxygen Delivery Method Mechanical Ventilator Weight: 86.7 kg Body Mass Index (BMI) 29.9 Intake & Output: Intake and Output for Last 24 Hours 12/03/23 12/04/23 12/05/23 23:59 23:59 23:59 Intake Total 1051.11 / 1063.51 1642.60 / 1757.70 1341.20 / 1341.20 Output Total 940 / 940 650 / 650 75 / 75 Balance 111.11 / 123.51 992.60 / 1107.70 1266.20 / 1266.20 Lab / Micro Data 12/05/23 03:35 12/05/23 03:35 Labs: Laboratory Results - last 24 hr 12/04/23 11:15: POC Glucose 403 H 12/04/23 17:12: POC Glucose 362 H 12/04/23 22:53: POC Glucose 308 H 12/05/23 03:35: WBC 15.6 H, RBC 3.54 L, Hgb 10.7 L, Hct 35.6 L, MCV 100.6 H, MCH 30.2, MCHC 30.1 L, RDW Std Deviation 61.9 H, RDW Coeff of Ancelmo 16.9 H, Plt Count 254, MPV 10.2, Immature Gran % (Auto) 1.500 H, Neut % (Auto) 90.4 H, Lymph % (Auto) 3.1 L, [place] % (Auto) 4.0, Eos % (Auto) 0.6, Baso % (Auto) 0.4, Absolute Neuts (auto) 14.1 H, Absolute Lymphs (auto) 0.49 L, Nucleated RBC % 0.3, Differential Comment SCANNED, Sodium 141, Potassium 4.6, Chloride 115 H, Carbon Dioxide 18.0 L, Anion Gap 8, BUN 86 H, Creatinine 2.61 H, Estim Creat Clear Calc 19.99, Est GFR (MDRD) Af Amer 30 L, Est GFR (MDRD) Non-Af 25 L, BUN/Creatinine Ratio 33.0 H, Glucose 295 H, Calcium 8.1 L 12/05/23 05:06: POC Glucose 262 H Micro: Microbiology 12/02/23 14:50 Blood Culture (Wb) - Anticubital Right Blood Culture - Preliminary No growth in 48 hours. 12/02/23 14:40 Blood Culture (Wb) - Anticubital Left Blood Culture - Preliminary No growth in 48 hours. 12/02/23 17:00 Urine Catheter - Chopra Urine Culture - Final Presumptive C albicans 12/02/23 17:05 Sputum, Induced/Lukens Gram Stain - Final 12/02/23 17:05 Sputum, Induced/Lukens Respiratory Culture - Final Enterobacter cloacae complex 12/03/23 08:29 Mucosa - Nasopharyngeal Respiratory Panel (PCR) - Final 12/03/23 08:49 Urine Catheter - Chopra Legionella Antigen - Final 12/03/23 08:49 Urine Catheter - Chopra Streptococcus pneumoniae Antigen (M - Final 12/02/23 19:18 Wound - Nose Skin and Soft Tissue MRSA/MSSA (PCR - Final 12/02/23 15:27 Mucosa - Nose SARS-CoV-2, Influenza & RSV (PCR) - Final ABG Data ABG results: ABG 12/04/23 17:55 Specimen Type ART Sample Site R Radial pH 7.33 L Bicarbonate Actual 20.5 L Total CO2 22 Base Excess -5 L O2 Saturation 90 L O2 % 100.0 ABG pCO2 39.1 ABG pO2 62 L Nirmal Test Positive Respiration Rate 12 O2 Delivery Device Adult Vent Vent Mode AC Tidal Volume 450.0 POC PEEP 7 Radiography Diagnostic Testing: Radiology Impression Chest X-Ray 12/04/23 17:53 IMPRESSION: Stable tubes and catheters. Stable right greater than left pneumonia or edema and pleural effusion. Electronically Signed: Parish Reilly MD at 20:02 EDT , Rhythm Strip Rhythm Strip: Sinus Rhythm Rate: 92 Ectopy: None Physical Exam Narrative GENERAL: Intubated on the vent HEENT: Atraumatic; normocephalic EYES; Anicteric, Normal Conjunctiva NECK; supple, normal thyroid, RESPIRATORY: Diminished to auscultation CARDIOVASCULAR: Regular S1 S2, GI: soft, normoactive bowel sounds, : No Renal angle tenderness; EXTREMITIES: No edema, no clubbing, MUSCULOSKELETAL: no muscle wasting NEURO: Intubated on the vent SKIN: No Rash PSYCH; unable to assess with patient under sedation Assessment & Plan Assessment/Plan (1) Respiratory failure: (2) Hypoxia: PLAN: Plan Patient is an 88-year-old gentleman with multiple comorbidities presented with progressive shortness of breath imaging studies demonstrated bilateral pleural effusion and multifocal pneumonia. Was also found to have elevated lactic acid level. An assessment of sepsis secondary to pneumonia made admitted to the intensive care unit for further management 1. Sepsis (present on admission) ? Secondary to multifocal pneumonia as well as acute cystitis. Patient had SIRS criteria as well as evidence of endorgan dysfunction including lactic acidosis as well as respiratory failure requiring BiPAP. Patient admitted to the intensive care unit treatment initiated per protocol ? 12/04/2023. Patient cultures so far positive for gram-negative rods in sputum and yeastlike organisms in his urine. WBC count trending down. ? 12/05/2023; urine cultures positive for Tanya. Sputum cultures positive for Enterobacter cloacae complex. MRSA screen negative. Discontinued vancomycin. 2. Pneumonia ? With suspected multidrug-resistant organiss. Chest x-ray on admission bilateral effusions and a right lower lobe infiltrate. Patient was admitted to the intensive care unit given worsening respiratory status managed with ceftriaxone and azithromycin in addition to noninvasive ventilation with BiPAP. Did adjust patient antibiotic therapy with broadening given his worsening respiratory status ? 12/04/2023; patient remains on the vent ? 12/05/2023; patient remains on the vent with with increasing PEEP requirement. Vent management deferred to angle roll operator 3. Acute hypoxic respiratory failure ? Secondary to pneumonia patient managed with antibiotics in addition to noninvasive ventilation with BiPAP and later transition to mechanical ventilation due to worsening respiratory status. Consult placed to angle roll operator. Discussed ? 12/04/2023; patient did fail his weaning trial this a.m. 4. Newly diagnosed diabetes mellitus type II ? Patient started on insulin drip with with plans to transition to long-acting insulin once of the vent. ? 12/04/2023; insulin drip discontinued the day prior, Switched to long-acting insulin with sliding scale coverage. With patient still remaining hyperglycemic further adjustment made to patient insulin regimen 5. Acute cystitis ? Present on admission patient is on Rocephin cultures sent 6. Paroxysmal A-fib ? Rate controlled on amiodarone on systemic anticoagulation with apixaban continued ? 12/05/2023. Patient went into A-fib with RVR back within normal limit. Apixaban placed on hold started on heparin 7. Dyslipidemia -Patient is on statin therapy, continued at home dose 8. Hypertension - Blood pressure controlled, home medications continued with dose adjustment as needed 9. Hypothyroidism - Patient is on levothyroxine home dose continued 10.Acute kidney injury superimposed on chronic kidney disease stage III ? Patient baseline creatinine from 10/30/2023 was 1.78 creatinine on admission was 3.09 potential nephrotoxic medications discontinued resuscitated with IV fluid with subsequent monitoring of electrolyte ? 12/04/2023; no significant change in kidney function will continue with daily monitoring with BMPs 11. Depression ? Patient is on mirtazapine 12. DVT prophylaxis ? On heparin Time spent in the patient's overall evaluation,decision-making process, review of diagnostic data, adjustment of management, discussion with other providers, nursing nursing and ancillary staff involved in patient's care documentation, 50 Minutes Charges/Coding Visit Charges Inpatient E&M: 58647 [facility] L3
[2023-12-05] MEDS: Insulin Glargine-YFGN 100 UNIT/ML Pen 25 UNIT SC (08:04)
[2023-12-05] MEDS: Amiodarone 200 MG Tablet PO (08:04)
[2023-12-05] MEDS: APIXABAN 2.5 MG TABLET (WCH) GT (08:04)
[2023-12-05] MEDS: Furosemide 20 MG/2 ML VIAL IV (08:04)
[2023-12-05] MEDS: Pantoprazole Sodium 40 MG in 0.9% Normal Saline (100mL MB+) 100 ML 330 MG IV (08:05)
[2023-12-05] MEDS: Chlorhexidine 15 ML PO ×2 (08:05→20:31)
[2023-12-05] MEDS: Senna/Docusate Sodium 1 Tablet GT ×2 (08:06→20:33)
--- NOTE | 2023-12-05 08:34 | VDLE_ITS ---
Reason For Study: Shortness of Breath RIGHT LEFT GSV is normal. GSV is normal. CFV is compressible, spontaneous, phasic, CFV is compressible, spontaneous, phasic, competent and demonstrates normal competent, and demonstrates normal augmentation. augmentation. FV is compressible, spontaneous, phasic, FV is compressible, spontaneous, phasic, competent and demonstrates normal competent and demonstrates normal augmentation. augmentation. POP V is compressible, spontaneous, phasic, POP V is compressible, spontaneous, phasic, competent and demonstrates normal competent and demonstrates normal augmentation. augmentation. T/P Trunk is compressible. T/P Trunk is compressible. PTV is compressible. PTV is compressible. RT PerV is compressible. LT PerV is compressible. Procedure This is a venous duplex using B-mode, color flow and spectral Doppler. Exam performed portable in ICU/CCU. The exam was diagnostic. A preliminary report was called and/or faxed to [facility]ICKET BROKERNISHA Rolon. VL/Venous Duplex US - Moses Extrem Interpretation Summary Deep veins of the bilateral lower extremities are patent and compressible segme ntally. There is no evidence of bilateral lower extremity deep vein thrombosis. The bilateral great saphenous veins appear patent and compressible segmentally. Ordering Physician: Bret Lobo Referring Physician: Derek Singh Chi Performed By: Hipolito Carrillo RVT
[2023-12-05] MEDS: 0.9% Normal Saline (250mL Bag) 250 ML 15 ML IV (09:37)
[2023-12-05] MEDS: HEPARIN/D5w 25,000 UNITS 25,000 UNITS/250 ML IV.SOLN. 12 UNITS CONT INF (09:42)
[2023-12-05] MEDS: Polyethylene Glycol 3350 17 GM PACKET GT ×2 (09:43→12:54)
[2023-12-05 10:31] LABS: Partial Thromboplast Time 35.8 Seconds (24.1-36.2)
--- NOTE | 2023-12-05 11:32 | CON.PCM.UR_ITS ---
Assessment & Plan Assessment/Plan (1) Sepsis: (2) Acute UTI: (3) Hydronephrosis: PLAN: Patient is septic in the ICU will get a stat CT scan stone protocol evaluate the source of the left hydronephrosis possible could be contributing factor to his sepsis. HPI Consult Data Date of Consult: 12/05/23 HPI Narrative Reason for Consultation: Left hydronephrosis HPI Narrative: JACKSON GRADY, is a 88 M who presents to the intensive care unit with sepsis he had an ultrasound done that demonstrated left hydronephrosis unclear the cause of his sepsis but again had and get a CT scan with out contrast that this was ordered after I evaluate the CAT scan and we will see if any intervention is necessary from urology standpoint. Continue with supportive resuscitation for his sepsis. [facility] Medical History care home current use of amiodarone Hyperkalemia Type 2 DM with CKD and hypertension PAF (paroxysmal atrial fibrillation) Atrial fibrillation with rapid ventricular response Gross hematuria Dyspnea Anxiety Smoker Dementia Complication, blocked Chopra catheter Nonobstructive atherosclerosis of coronary artery Essential (primary) hypertension History of CVA (cerebrovascular accident) (02/25/18) History of cancer of larynx Carotid stenosis Carotid arterial disease Hyperlipidemia Home Medications ?Medication ?Instructions ?Recorded ?Last Taken ?Type levothyroxine 50 mcg tablet 50 mcg PO DAILY 10/12/21 Unknown History mirtazapine 15 mg tablet 15 mg PO QHS mental health 10/12/21 Unknown History polysaccharide iron complex 150 mg 150 mg PO DAILY 10/12/21 Unknown History iron capsule sennosides 8.6 mg-docusate sodium 1 tab-cap PO BID 06/25/23 Unknown History 50 mg tablet (Senna-S) amiodarone 200 mg tablet See Rx Instructions .Route 08/27/23 Unknown Rx .COMPLEX #90 tabs amlodipine 5 mg tablet 5 mg PO DAILY #90 tabs 08/27/23 Unknown Rx atorvastatin 40 mg tablet 40 mg PO QHS cholesterol #90 tabs 08/27/23 Unknown Rx lisinopril 20 mg tablet 20 mg PO DAILY #90 tabs 08/27/23 Unknown Rx metoprolol tartrate 50 mg tablet 25 mg (1/2 x 50 mg) PO BID #90 tabs 08/27/23 Unknown Rx apixaban 2.5 mg tablet (Eliquis) 2.5 mg PO BID Dose decreased to 08/28/23 Unknown Rx 2.5 mg twice daily #180 tabs azithromycin 250 mg tablet See Rx Instructions PO .COMPLEX #6 11/28/23 Unknown Rx (Zithromax Z-Henry) tabs ipratropium 0.5 mg-albuterol 3 mg 3 ml continuous nebulization ONCE 11/28/23 Unknown Clinic (2.5 mg base)/3 mL nebulization #1 mL soln prednisone 10 mg tablet See Rx Instructions PO DAILY #30 11/28/23 Unknown Rx tabs Allergy/AdvReac Type Severity Reaction Status Date / Time alcohol Allergy Unknown Unknown Verified 12/02/23 16:11 Family History Other CAD (coronary artery disease) Heart disease Hypertension Surgical History History of left-sided carotid endarterectomy (07/2010) History of left heart catheterization (09/27/05) Hx of tonsillectomy History of appendectomy History of bilateral knee replacement (2007) Social History Smoking Status: Current every day smoker tobacco type: cigarettes alcohol intake: former details: Quit 19 years ago substance use type: does not use caffeine: Yes Type: coffee ROS ROS Narrative Unable to obtain Constitutional Constitutional: Denies chills, fever(s) or malaise Eyes Eyes: Denies blurry vision or change in vision ENT HEENT: Reports none Cardiovascular Cardiovascular: Denies chest pain or palpitations Respiratory/Chest Respiratory/Chest: Denies cough or shortness of breath with exertion Gastrointestinal Gastrointestinal: Denies abdominal pain, constipation or diarrhea Musculoskeletal Musculoskeletal: Denies back pain, joint stiffness or joint swelling Integumentary Integumentary: Denies dry skin, jaundice, lesions or rash Neurologic Neurologic: Denies confusion, syncope or weakness Psychiatric Psychiatric: Reports none; Denies anxiety or depression Endocrine Endocrinology: Denies excessive sweating, fatigue or flushing Hematologic/Lymphatic Hematologic/Lymphatic: Denies anemia, easy bleeding or easy bruising Physical Exam HEENT normocephalic and head/scalp atraumatic Eyes PERRL and EOMs intact bilaterally Neck supple, no JVD and no carotid bruits Resp normal respiratory effort, normal air movement and clear to auscultation bilaterally Cardio regular rate and no murmurs GI normal to inspection, nondistended, normoactive bowel sounds and soft to palpation Extremity normal capillary refill General Extremity: no tenderness to palpation of joints or extremities; Negative for edema Skin no rashes or lesions noted and no wounds General Skin Exam: no breakdown Neuro CN's II-XII intact bilaterally Psych affect normal Appearance: appropriate Lab / Micro Data 12/05/23 03:35 12/05/23 03:35 Labs: Laboratory Results - last 24 hr 12/04/23 11:15: POC Glucose 403 H 12/04/23 17:12: POC Glucose 362 H 12/04/23 22:53: POC Glucose 308 H 12/05/23 03:35: WBC 15.6 H, RBC 3.54 L, Hgb 10.7 L, Hct 35.6 L, MCV 100.6 H, MCH 30.2, MCHC 30.1 L, RDW Std Deviation 61.9 H, RDW Coeff of Ancelmo 16.9 H, Plt Count 254, MPV 10.2, Immature Gran % (Auto) 1.500 H, Neut % (Auto) 90.4 H, Lymph % (Auto) 3.1 L, [place] % (Auto) 4.0, Eos % (Auto) 0.6, Baso % (Auto) 0.4, Absolute Neuts (auto) 14.1 H, Absolute Lymphs (auto) 0.49 L, Nucleated RBC % 0.3, Differential Comment SCANNED, Sodium 141, Potassium 4.6, Chloride 115 H, Carbon Dioxide 18.0 L, Anion Gap 8, BUN 86 H, Creatinine 2.61 H, Estim Creat Clear Calc 19.99, Est GFR (MDRD) Af Amer 30 L, Est GFR (MDRD) Non-Af 25 L, BUN/Creatinine Ratio 33.0 H, Glucose 295 H, Calcium 8.1 L 12/05/23 05:06: POC Glucose 262 H 12/05/23 09:45: APTT 35.8 Micro: Microbiology 12/02/23 14:50 Blood Culture (Wb) - Anticubital Right Blood Culture - Preliminary No growth in 48 hours. 12/02/23 14:40 Blood Culture (Wb) - Anticubital Left Blood Culture - Preliminary No growth in 48 hours. 12/02/23 17:00 Urine Catheter - Chopra Urine Culture - Final Presumptive C albicans 12/02/23 17:05 Sputum, Induced/Lukens Gram Stain - Final 12/02/23 17:05 Sputum, Induced/Lukens Respiratory Culture - Final Enterobacter cloacae complex ABG Data ABG results: ABG 12/04/23 17:55 Specimen Type ART Sample Site R Radial pH 7.33 L Bicarbonate Actual 20.5 L Total CO2 22 Base Excess -5 L O2 Saturation 90 L O2 % 100.0 ABG pCO2 39.1 ABG pO2 62 L Nirmal Test Positive Respiration Rate 12 O2 Delivery Device Adult Vent Vent Mode AC Tidal Volume 450.0 POC PEEP 7 Rhythm Strip Rhythm Strip: Sinus Rhythm Rate: 92 Ectopy: None Imaging Radiology Impression Chest X-Ray 12/04/23 17:53 IMPRESSION: Stable tubes and catheters. Stable right greater than left pneumonia or edema and pleural effusion. Electronically Signed: Parish Reilly MD at 20:02 EDT , Renal Ultrasound 12/05/23 06:53 IMPRESSION: Moderate degree of left hydronephrosis. Left intrarenal calculus. Electronically Signed: Jalen Rodriguez MD at 10:07 EDT , Chest X-Ray 12/05/23 06:55 IMPRESSION: Unchanged appearance to right greater than left airspace disease. Electronically Signed: Odette Waterman MD at 7:39 EDT ,
[2023-12-05] MEDS: Ipratropium/Albuterol Sulfate 3 ML AMPUL.NEB INHALATION (12:34)
[2023-12-05] MEDS: dexMEDEtomidine 400 MCG in 0.9% Normal Saline (100mL Bag) 96 ML 10.8 MCG CONT INF ×2 (13:13→19:26)
[2023-12-05 13:20] LABS: Bedside Glucose 264 mg/dL (74-106)
[2023-12-05] MEDS: Cefepime HCl 1 GM in 0.9% Normal Saline (50mL MB+) 50 ML IV (13:49)
--- NOTE | 2023-12-05 14:15 | RAD_ITS ---
STUDY: X-RAY CHEST REASON FOR EXAM: Male, 88 years old. JUANCARLOS PICC inserted TECHNIQUE: Single AP portable view of the chest. COMPARISON: Comparison is made with prior study done earlier today. FINDINGS: A right-sided PICC line catheter has been placed. The tip is at the junction of the superior vena cava and right atrium. The endotracheal tube and orogastric tube are unchanged. Persistent airspace disease in the right midlung and right lung base as well as increased markings at the left lung base. There is no demonstrated pleural abnormality. Normal size heart. Normal mediastinum and binu. Normal visualized pulmonary arteries. There is atherosclerotic calcification of the aortic arch with tortuosity. There are diffuse degenerative changes of the visualized thoracic spine. Normal visualized ribs, clavicles, and shoulders. There is no demonstrated abnormality of the visualized soft tissue structures of the upper abdomen. RAD/CXR for Line Placement IMPRESSION: The tip of the right-sided PICC line catheter is at the junction of the superior vena cava and right atrium. The remainder of the examination is unchanged. Electronically Signed: Jalen Rodriguez MD at 14:48 EDT ,
--- NOTE | 2023-12-05 14:34 | CASEMGMT ---
Social Work SW met with pt's dgt Linda and introduced self and role of SW. SW spoke with Linda and provided support surrounding diagnosis and medical condition of pt. Pt's dgt willing to talk with SW at this time. SW will remain available should futher needs arise. JOEY Pardo
[2023-12-05] MEDS: Norepinephrine 8 MG in 0.9% Normal Saline (250mL Bag) 242 ML 9.4 MG CONT INF (15:00)
--- NOTE | 2023-12-05 15:57 | CON.PCM.ID_ITS ---
Assessment & Plan Assessment/Plan (1) Respiratory failure: (2) Pneumonia: (3) Chronic kidney disease, stage III (moderate): QUALIFIERS: Chronic kidney disease stage 3 subtype: stage 3a (GFR 45-59) Qualified Code(s): N18.31 - Chronic kidney disease, stage 3a (4) Sepsis: PLAN: Enterobacter pneumonia - will change zosyn to cefepime for more reliable enterobacter coverage. enrique uti - hydro and stone seen with planned urology procedure, so will start fluconazole. Will follow, thank you (5) Hydronephrosis: HPI Consult Data Date of Consult: 12/05/23 HPI Narrative Reason for Consultation: pneumonia HPI Narrative: JACKSON GRADY, is a 88 M with h/o stroke, afib, CKD, presented 12/02 with 3 days fatigue, cough, white sputum, dyspnea, not feeling well. Admitted on azithro/ceftriaxone, solumedrol. Transferred to icu, intubated, now on zosyn. O2 worsening, family member at bedside provided history. ROS unobtainable due to intubation [facility] Medical History half-way current use of amiodarone Hyperkalemia Type 2 DM with CKD and hypertension PAF (paroxysmal atrial fibrillation) Atrial fibrillation with rapid ventricular response Gross hematuria Dyspnea Anxiety Smoker Dementia Complication, blocked Chopra catheter Nonobstructive atherosclerosis of coronary artery Essential (primary) hypertension History of CVA (cerebrovascular accident) (02/25/18) History of cancer of larynx Carotid stenosis Carotid arterial disease Hyperlipidemia Home Medications ?Medication ?Instructions ?Recorded ?Last Taken ?Type levothyroxine 50 mcg tablet 50 mcg PO DAILY 10/12/21 Unknown History mirtazapine 15 mg tablet 15 mg PO QHS mental health 10/12/21 Unknown History polysaccharide iron complex 150 mg 150 mg PO DAILY 10/12/21 Unknown History iron capsule sennosides 8.6 mg-docusate sodium 1 tab-cap PO BID 06/25/23 Unknown History 50 mg tablet (Senna-S) amiodarone 200 mg tablet See Rx Instructions .Route 08/27/23 Unknown Rx .COMPLEX #90 tabs amlodipine 5 mg tablet 5 mg PO DAILY #90 tabs 08/27/23 Unknown Rx atorvastatin 40 mg tablet 40 mg PO QHS cholesterol #90 tabs 08/27/23 Unknown Rx lisinopril 20 mg tablet 20 mg PO DAILY #90 tabs 08/27/23 Unknown Rx metoprolol tartrate 50 mg tablet 25 mg (1/2 x 50 mg) PO BID #90 tabs 08/27/23 Unknown Rx apixaban 2.5 mg tablet (Eliquis) 2.5 mg PO BID Dose decreased to 08/28/23 Unknown Rx 2.5 mg twice daily #180 tabs azithromycin 250 mg tablet See Rx Instructions PO .COMPLEX #6 11/28/23 Unknown Rx (Zithromax Z-Henry) tabs ipratropium 0.5 mg-albuterol 3 mg 3 ml continuous nebulization ONCE 11/28/23 Unknown Clinic (2.5 mg base)/3 mL nebulization #1 mL soln prednisone 10 mg tablet See Rx Instructions PO DAILY #30 11/28/23 Unknown Rx tabs Allergy/AdvReac Type Severity Reaction Status Date / Time alcohol Allergy Unknown Unknown Verified 12/02/23 16:11 Family History Other CAD (coronary artery disease) Heart disease Hypertension Surgical History History of left-sided carotid endarterectomy (07/2010) History of left heart catheterization (09/27/05) Hx of tonsillectomy History of appendectomy History of bilateral knee replacement (2007) Social History Smoking Status: Current every day smoker tobacco type: cigarettes alcohol intake: former details: Quit 19 years ago substance use type: does not use caffeine: Yes Type: coffee Physical Exam Const no apparent distress HEENT normocephalic and head/scalp atraumatic Eyes PERRL Neck No nodes Resp Effort and Inspection: mechanically ventilated Auscultation: diminished lung sounds Cardio Rate: tachycardic GI soft to palpation, non-tender and non-distended Extremity General Extremity: edema Skin no rashes or lesions noted Neuro CN's II-XII intact bilaterally Lab / Micro Data Attestation: I reviewed the patient's lab results. 12/05/23 03:35 12/05/23 03:35 Labs: Laboratory Results - last 24 hr 12/04/23 17:12: POC Glucose 362 H 12/04/23 22:53: POC Glucose 308 H 12/05/23 03:35: WBC 15.6 H, RBC 3.54 L, Hgb 10.7 L, Hct 35.6 L, MCV 100.6 H, MCH 30.2, MCHC 30.1 L, RDW Std Deviation 61.9 H, RDW Coeff of Ancelmo 16.9 H, Plt Count 254, MPV 10.2, Immature Gran % (Auto) 1.500 H, Neut % (Auto) 90.4 H, Lymph % (Auto) 3.1 L, [place] % (Auto) 4.0, Eos % (Auto) 0.6, Baso % (Auto) 0.4, Absolute Neuts (auto) 14.1 H, Absolute Lymphs (auto) 0.49 L, Nucleated RBC % 0.3, Differential Comment SCANNED, Sodium 141, Potassium 4.6, Chloride 115 H, Carbon Dioxide 18.0 L, Anion Gap 8, BUN 86 H, Creatinine 2.61 H, Estim Creat Clear Calc 19.99, Est GFR (MDRD) Af Amer 30 L, Est GFR (MDRD) Non-Af 25 L, BUN/Creatinine Ratio 33.0 H, Glucose 295 H, Calcium 8.1 L 12/05/23 05:06: POC Glucose 262 H 12/05/23 09:45: APTT 35.8 12/05/23 12:54: POC Glucose 264 H Micro: Microbiology 12/02/23 14:50 Blood Culture (Wb) - Anticubital Right Blood Culture - Preliminary No growth in 48 hours. 12/02/23 14:40 Blood Culture (Wb) - Anticubital Left Blood Culture - Preliminary No growth in 48 hours. 12/02/23 17:00 Urine Catheter - Chopra Urine Culture - Final Presumptive C albicans ABG Data ABG results: ABG 12/04/23 17:55 Specimen Type ART Sample Site R Radial pH 7.33 L Bicarbonate Actual 20.5 L Total CO2 22 Base Excess -5 L O2 Saturation 90 L O2 % 100.0 ABG pCO2 39.1 ABG pO2 62 L Nirmal Test Positive Respiration Rate 12 O2 Delivery Device Adult Vent Vent Mode AC Tidal Volume 450.0 POC PEEP 7 Rhythm Strip Rhythm Strip: Sinus Rhythm Rate: 92 Ectopy: None Imaging Radiology Impression Chest X-Ray 12/04/23 17:53 IMPRESSION: Stable tubes and catheters. Stable right greater than left pneumonia or edema and pleural effusion. Electronically Signed: Parish Reilly MD at 20:02 EDT , Renal Ultrasound 12/05/23 06:53 IMPRESSION: Moderate degree of left hydronephrosis. Left intrarenal calculus. Electronically Signed: Jalen Rodriguez MD at 10:07 EDT , Chest X-Ray 12/05/23 06:55 IMPRESSION: Unchanged appearance to right greater than left airspace disease. Electronically Signed: Odette Watreman MD at 7:39 EDT , Chest X-Ray 12/05/23 14:15 IMPRESSION: The tip of the right-sided PICC line catheter is at the junction of the superior vena cava and right atrium. The remainder of the examination is unchanged. Electronically Signed: Jalen Rodriguez MD at 14:48 EDT ,
[2023-12-05 17:03] LABS: Partial Thromboplast Time 59.6 Seconds (24.1-36.2)
[2023-12-05] MEDS: fentaNYL drip 100 ML 15 MCG CONT INF (19:26)
[2023-12-05] MEDS: Insulin Glargine-YFGN 100 UNIT/ML Pen 40 UNIT SC (20:32)
[2023-12-05] MEDS: Atorvastatin Calcium 40 MG Tablet GT (20:32)
[2023-12-05] MEDS: Mirtazapine 15 MG Tablet GT (20:32)
[2023-12-05] MEDS: Acetaminophen 650 MG/20 ML UDC PO (20:37)
[2023-12-05 21:03] LABS: Bedside Glucose 283 mg/dL (74-106)
[2023-12-05 21:03] LABS: Bedside Glucose 278 mg/dL (74-106)
[2023-12-06] VITALS (52 sets, daily range): BP systolic 94–174; BP diastolic 45–66; PULSE 60–101; RESP 12–22; TEMP 36.6–38.7; O2SAT 92–97; BMI 30.5
[2023-12-06] MEDS: Insulin Lispro 100 UNIT/ML INSULN.PEN SC ×3 (00:10→19:00)
[2023-12-06 00:33] LABS: Bedside Glucose 279 mg/dL (74-106)
[2023-12-06 00:39] LABS: Partial Thromboplast Time 60.7 Seconds (24.1-36.2)
[2023-12-06] MEDS: fentaNYL drip 100 ML 12.5 MCG CONT INF (03:00)
[2023-12-06] MEDS: dexMEDEtomidine 400 MCG in 0.9% Normal Saline (100mL Bag) 96 ML 10.8 MCG CONT INF (03:52)
[2023-12-06] MEDS: Nystatin Powder 15gm Bottle 1 APPLIC TOPICAL ×3 (05:14→21:29)
[2023-12-06] MEDS: HEPARIN/D5w 25,000 UNITS 25,000 UNITS/250 ML IV.SOLN. 12 UNITS CONT INF (05:14)
[2023-12-06] MEDS: 0.9% Saline Lock 10 ML Syringe IV ×2 (05:14→08:01)
[2023-12-06] MEDS: Acetaminophen 650 MG/20 ML UDC PO (05:14)
[2023-12-06] MEDS: Levothyroxine 50 MCG Tablet GT (05:17)
[2023-12-06 05:41] LABS: Absolute Lymphocyte Count 0.36 X10^3/uL (0.83-4.51); Absolute Neutrophil Count 20.3 X10^3/uL (2.0-7.7); Basophil% 0.4 % (0-1); Hematocrit 38.3 % (40-54); Hemoglobin 11.3 g/dL (13.0-16.5); Lymphocyte # 0.36 X10^3/ul (0.83-4.51); Lymphocyte % 1.6 % (19-41); Mean Corp Hgb Conc 29.5 g/dL (32-36); Mean Corpuscular Volume 101.6 fL (80-94); Mean Platelet Vol. 10.3 fl (6.2-12.0); Monocyte# 0.95 X10^3/uL; Monocyte% 4.3 % (0-10); NRBC Flagged by Analyzer 0.1 % (0-5); Neutrophil # 20.34 X10^3/uL (2.7-7.7); Neutrophil % 91.3 % (47-70); POSITIVE DIFFERENTIAL YES; POSITIVE MORPHOLOGY YES; Platelet Count 302 K/mm3 (150-450); RBC Distribution Width CV 17.4 % (11.6-14.6); RBC Distribution Width SD 66.3 fl (35.1-43.9); Red Blood Count 3.77 M/mm3 (4.6-6.2); White Blood Count 22.3 K/mm3 (4.4-11.0)
[2023-12-06 05:46] LABS: Differential Indicated SCAN CRITERIA MET
[2023-12-06 05:51] LABS: Bedside Glucose 371 mg/dL (74-106)
[2023-12-06 06:03] LABS: Anion Gap 7 (5-15); BUN 105 mg/dL (7-18); BUN/Creat Ratio 31.2 RATIO (10-20); Calcium,Total 8.2 mg/dL (8.5-10.1); Chloride 112 mmol/L (98-107); Creatinine, Serum 3.36 mg/dL (0.70-1.30); EST Glomerular Filtration Rate 19 mL/min (>60); Est Glom Filt Rate - Afr Amer 22 mL/min (>60); Estimated Creatinine Clearance 15.82 ml/min; Glucose 476 mg/dL (74-106); Potassium 6.3 mmol/L (3.5-5.1); Sodium Level 138 mmol/L (136-145)
[2023-12-06 06:25] LABS: Partial Thromboplast Time 86.8 Seconds (24.1-36.2)
--- NOTE | 2023-12-06 06:54 | PCM.PN.INT ---
Assessment & Plan Assessment/Plan (1) Sepsis: (2) Respiratory failure: PLAN: Plan RECOMMENDATIONS: 1. Continue assist-control mode mechanical ventilation. Wean FiO2 and PEEP to maintain saturations at or above 90%. 2. Nephrostomy tube placement as ordered. 3. Continue weight-based heparin infusion. 4. Nephrology consultation is pending. 5. Continue basal and sliding scale insulin coverage. 6. Continue antimicrobials per ID recommendations. 7. Continue tube feeding as tolerated. 8. Continue appropriate GI prophylaxis. 9. Ongoing goals of care discussion with the patient's daughter. IMPRESSIONS: 1. Septic shock The patient presented to the hospital with sepsis due to Enterobacter pneumonia with acute sepsis related organ dysfunction as evidenced by lactic acidemia and acute respiratory failure requiring invasive mechanical ventilatory support. The patient has been maintained on appropriate antimicrobial therapy. Levophed will be weaned, as tolerated, to maintain a mean arterial pressure at or above 65 mmHg. 2. Acute respiratory failure with hypoxemia The patient was initially intubated after he failed to respond to noninvasive positive pressure ventilatory support. Chest imaging was concerning for bilateral pleural effusions and pneumonia. The patient does have evidence of heart failure with preserved ejection fraction on echocardiogram. At this time, recommend continuing antimicrobial therapy, as ordered. Although there is repeated documentation that the patient has COPD, prior pulmonary function studies in 2022 failed to demonstrate evidence of COPD. The patient will be continued on assist-control mode of mechanical ventilation. FiO2 and PEEP will be weaned as tolerated. 3. Acute on chronic kidney disease Most likely prerenal in etiology. In light of the patient's worsening renal function, will obtain nephrology consultation. In addition, the patient did have evidence of hydronephrosis on renal ultrasound, for which urology recommended nephrostomy tube placement, which is currently pending. 4. History of coronary artery disease/paroxysmal atrial fibrillation/hypertension Continue current medical therapy. Recommend holding home antihypertensives for now. 5. History of diabetes mellitus/hypothyroidism Complicates care, management, recovery and prognosis. Continue basal and sliding scale insulin coverage. Continue tube feeding as tolerated. CODE STATUS: DNR CCA TIME: 35 minutes of critical care time, independent of procedures, was spent addressing the patient's sepsis, acute respiratory failure with hypoxemia, acute on chronic kidney disease, diabetes mellitus, review of all data and collaboration with the care team. Subjective Subjective The patient was seen and examined at the bedside this morning. Events from the last 24 hours have been reviewed. The patient has been running fevers, presumably secondary to the Precedex currently being utilized for sedation. The patient remains on assist-control mode mechanical ventilation with an FiO2 requirement of 85% and PEEP of 14. His plateau pressures remain less than 30 cm of water. The patient remains on Levophed at 10 mcg/min to maintain hemodynamic stability. He remains in rate controlled atrial fibrillation on a weight-based heparin infusion. The patient has been tolerant of tube feeding. I did speak with urology yesterday, who ultimately recommended percutaneous nephrostomy tube placement. However, the patient was deemed to be too unstable clinically to be taken to radiology for placement. His urine output has improved some overnight. White count remains elevated at 22,000. BUN has increased to 109 with a creatinine of 3.49. I did personally speak with the patient's daughter this morning extensively at the bedside regarding the patient's overall prognosis. Following my discussion with the patient's daughter, she has elected to transition the patient to DNR CCA. Although she would like to think about it further, she is currently considering possible terminal extubation and initiation of comfort care measures. Objective Data Objective Data The patient's most recent lab work, culture data and imaging studies have all been personally reviewed. Surface echocardiogram demonstrated normal LV size with an ejection fraction of 70% and stage I diastolic dysfunction. Sputum culture was positive for pansensitive Enterobacter. Vital Signs: Vital Signs Temp Pulse Resp BP Pulse Ox O2 Del Method O2 Flow Rate 101.3 F H 68 16 114/48 L 95 Mechanical Ventilator 100 12/06/23 05:00 12/06/23 05:30 12/06/23 05:00 12/06/23 05:30 12/06/23 05:00 12/06/23 05:00 12/05/23 18:00 FiO2 90 12/06/23 05:00 Oxygen Flow Rate (L/min) 100 Oxygen Delivery Method Mechanical Ventilator Weight: 195 lb 1.745 oz Body Mass Index (BMI) 30.5 Intake & Output: Intake and Output for Last 24 Hours 12/04/23 12/05/23 12/06/23 23:59 23:59 23:59 Intake Total 1642.60 / 1757.70 3718.79 / 3853.99 814.60 / 814.60 Output Total 650 / 650 490 / 740 475 / 475 Balance 992.60 / 1107.70 3228.79 / 3113.99 339.60 / 339.60 Lab / Micro Data Attestation: I reviewed the patient's lab results. 12/06/23 05:30 12/06/23 06:45 Labs: Laboratory Results - last 24 hr 12/05/23 09:45: APTT 35.8 12/05/23 12:54: POC Glucose 264 H 12/05/23 16:40: APTT 59.6 H 12/05/23 18:08: POC Glucose 278 H 12/05/23 20:28: POC Glucose 283 H 12/05/23 22:55: APTT Cancelled 12/06/23 00:02: POC Glucose 279 H 12/06/23 00:15: APTT 60.7 H 12/06/23 05:16: POC Glucose 371 H 12/06/23 05:30: WBC 22.3 H, RBC 3.77 L, Hgb 11.3 L, Hct 38.3 L, MCV 101.6 H, MCH 30.0, MCHC 29.5 L, RDW Std Deviation 66.3 H, RDW Coeff of Ancelmo 17.4 H, Plt Count 302, MPV 10.3, Immature Gran % (Auto) 2.400 H, Neut % (Auto) 91.3 H, Lymph % (Auto) 1.6 L, [place] % (Auto) 4.3, Eos % (Auto) 0.0, Baso % (Auto) 0.4, Absolute Neuts (auto) 20.3 H, Absolute Lymphs (auto) 0.36 L, Nucleated RBC % 0.1, APTT 86.8 H, Sodium 138, Potassium 6.3 H*, Chloride 112 H, Carbon Dioxide 19.0 L, Anion Gap 7, BUN 105 H*, Creatinine 3.36 H, Estim Creat Clear Calc 15.82, Est GFR (MDRD) Af Amer 22 L, Est GFR (MDRD) Non-Af 19 L, BUN/Creatinine Ratio 31.2 H, Glucose 476 H*, Calcium 8.2 L Micro: Microbiology 12/02/23 14:50 Blood Culture (Wb) - Anticubital Right Blood Culture - Preliminary No growth in 48 hours. 12/02/23 14:40 Blood Culture (Wb) - Anticubital Left Blood Culture - Preliminary No growth in 48 hours. 12/02/23 17:00 Urine Catheter - Chopra Urine Culture - Final Presumptive C albicans 12/02/23 17:05 Sputum, Induced/Lukens Gram Stain - Final 12/02/23 17:05 Sputum, Induced/Lukens Respiratory Culture - Final Enterobacter cloacae complex 12/03/23 08:29 Mucosa - Nasopharyngeal Respiratory Panel (PCR) - Final 12/03/23 08:49 Urine Catheter - Chopra Legionella Antigen - Final 12/03/23 08:49 Urine Catheter - Chopra Streptococcus pneumoniae Antigen (M - Final 12/02/23 19:18 Wound - Nose Skin and Soft Tissue MRSA/MSSA (PCR - Final 12/02/23 15:27 Mucosa - Nose SARS-CoV-2, Influenza & RSV (PCR) - Final ABG Data ABG results: ABG 12/04/23 17:55 Specimen Type ART Sample Site R Radial pH 7.33 L Bicarbonate Actual 20.5 L Total CO2 22 Base Excess -5 L O2 Saturation 90 L O2 % 100.0 ABG pCO2 39.1 ABG pO2 62 L Nirmal Test Positive Respiration Rate 12 O2 Delivery Device Adult Vent Vent Mode AC Tidal Volume 450.0 POC PEEP 7 Radiography Diagnostic Testing: Radiology Impression Renal Ultrasound 12/05/23 06:53 IMPRESSION: Moderate degree of left hydronephrosis. Left intrarenal calculus. Electronically Signed: Jalen Rodriguez MD at 10:07 EDT , Chest X-Ray 12/05/23 06:55 IMPRESSION: Unchanged appearance to right greater than left airspace disease. Electronically Signed: Odette Waterman MD at 7:39 EDT Reading Location ID and State: [facility] / [place] , Service support , Venous Doppler Study 12/05/23 08:34 Interpretation Summary Deep veins of the bilateral lower extremities are patent and compressible segmentally. There is no evidence of bilateral lower extremity deep vein thrombosis. The bilateral great saphenous veins appear patent and compressible segmentally. Ordering Physician: Bret Lobo Referring Physician: Derek Singh Chi Performed By: Hipolito Carrillo, T Chest X-Ray 12/05/23 14:15 IMPRESSION: The tip of the right-sided PICC line catheter is at the junction of the superior vena cava and right atrium. The remainder of the examination is unchanged. Electronically Signed: Jalen Rodriguez MD at 14:48 EDT , Rhythm Strip Rhythm Strip: Sinus Rhythm Rate: 92 Ectopy: None Physical Exam Const Constitutional Narrative: Intubated, sedated and mechanically ventilated. No ventilator dyssynchrony noted. General Appearance: ill appearing HEENT normocephalic and head/scalp atraumatic Mouth: endotracheal tube in place and OG tube in place Eyes PERRL and conjunctivae normal Neck supple General: trachea midline Chest inspection of chest normal Resp normal respiratory effort Auscultation: diminished lung sounds; Negative for rales, rhonchi or wheezes Cardio S1 normal heart sound and S2 normal heart sound Rhythm: abnormal rhythm GI normal to inspection, nondistended, normoactive bowel sounds Extremity General Extremity: edema; Negative for clubbing Skin no rashes or lesions noted Neuro Sensorium / Orientation: sedated on vent Charges/Coding Procedures Hospitalists Procedures: 80532 Critical Care 1st Hr
[2023-12-06 07:05] LABS: Anisocytosis RARE; Differential Comment SCANNED
[2023-12-06 07:13] LABS: Anion Gap 7 (5-15); BUN 109 mg/dL (7-18); BUN/Creat Ratio 31.2 RATIO (10-20); Calcium,Total 8.3 mg/dL (8.5-10.1); Chloride 111 mmol/L (98-107); Creatinine, Serum 3.49 mg/dL (0.70-1.30); EST Glomerular Filtration Rate 18 mL/min (>60); Est Glom Filt Rate - Afr Amer 21 mL/min (>60); Estimated Creatinine Clearance 15.23 ml/min; Glucose 542 mg/dL (74-106); Potassium 6.2 mmol/L (3.5-5.1); Sodium Level 137 mmol/L (136-145)
--- NOTE | 2023-12-06 07:30 | CON.PCM.UR_ITS ---
HPI Consult Data Date of Consult: 12/06/23 HPI Narrative HPI Narrative: JAKCSON GRADY, is a 88 M in septic shock and had an ultrasound that demonstrated pretty significant left hydronephrosis and reviewing his past CAT scans he had a CAT scan done per vascular surgery at the time of the CAT scan was done demonstrated multiple obstructing stones in the left kidney ureter left ureterovesical junction I do not have any indication that anything was done for the stones. Patient is intubated and sedated sedated in critical condition at this point spoke to the delivery and installation subcontractor and the patient will need a left nephrostomy tube once he is stabilized I think at this point is fairly in critical condition but once he is stabilized he can go down to radiology department and get a nephrostomy tube placed to drain the left kidney. I will follow the patient for now by but will be out of town in about 2 days. [facility] Medical History penitentiary current use of amiodarone Hyperkalemia Type 2 DM with CKD and hypertension PAF (paroxysmal atrial fibrillation) Atrial fibrillation with rapid ventricular response Gross hematuria Dyspnea Anxiety Smoker Dementia Complication, blocked Chopra catheter Nonobstructive atherosclerosis of coronary artery Essential (primary) hypertension History of CVA (cerebrovascular accident) (02/25/18) History of cancer of larynx Carotid stenosis Carotid arterial disease Hyperlipidemia Home Medications ?Medication ?Instructions ?Recorded ?Last Taken ?Type levothyroxine 50 mcg tablet 50 mcg PO DAILY 10/12/21 Unknown History mirtazapine 15 mg tablet 15 mg PO QHS mental health 10/12/21 Unknown History polysaccharide iron complex 150 mg 150 mg PO DAILY 10/12/21 Unknown History iron capsule sennosides 8.6 mg-docusate sodium 1 tab-cap PO BID 06/25/23 Unknown History 50 mg tablet (Senna-S) amiodarone 200 mg tablet See Rx Instructions .Route 08/27/23 Unknown Rx .COMPLEX #90 tabs amlodipine 5 mg tablet 5 mg PO DAILY #90 tabs 08/27/23 Unknown Rx atorvastatin 40 mg tablet 40 mg PO QHS cholesterol #90 tabs 08/27/23 Unknown Rx lisinopril 20 mg tablet 20 mg PO DAILY #90 tabs 08/27/23 Unknown Rx metoprolol tartrate 50 mg tablet 25 mg (1/2 x 50 mg) PO BID #90 tabs 08/27/23 Unknown Rx apixaban 2.5 mg tablet (Eliquis) 2.5 mg PO BID Dose decreased to 08/28/23 Unknown Rx 2.5 mg twice daily #180 tabs azithromycin 250 mg tablet See Rx Instructions PO .COMPLEX #6 11/28/23 Unknown Rx (Zithromax Z-Henry) tabs ipratropium 0.5 mg-albuterol 3 mg 3 ml continuous nebulization ONCE 11/28/23 Unknown Clinic (2.5 mg base)/3 mL nebulization #1 mL soln prednisone 10 mg tablet See Rx Instructions PO DAILY #30 11/28/23 Unknown Rx tabs Allergy/AdvReac Type Severity Reaction Status Date / Time alcohol Allergy Unknown Unknown Verified 12/02/23 16:11 Family History Other CAD (coronary artery disease) Heart disease Hypertension Surgical History History of left-sided carotid endarterectomy (07/2010) History of left heart catheterization (09/27/05) Hx of tonsillectomy History of appendectomy History of bilateral knee replacement (2007) Social History Smoking Status: Current every day smoker tobacco type: cigarettes alcohol intake: former details: Quit 19 years ago substance use type: does not use caffeine: Yes Type: coffee Lab / Micro Data 12/06/23 05:30 12/06/23 06:45 Labs: Laboratory Results - last 24 hr 12/05/23 09:45: APTT 35.8 12/05/23 12:54: POC Glucose 264 H 12/05/23 16:40: APTT 59.6 H 12/05/23 18:08: POC Glucose 278 H 12/05/23 20:28: POC Glucose 283 H 12/05/23 22:55: APTT Cancelled 12/06/23 00:02: POC Glucose 279 H 12/06/23 00:15: APTT 60.7 H 12/06/23 05:16: POC Glucose 371 H 12/06/23 05:30: WBC 22.3 H, RBC 3.77 L, Hgb 11.3 L, Hct 38.3 L, MCV 101.6 H, MCH 30.0, MCHC 29.5 L, RDW Std Deviation 66.3 H, RDW Coeff of Ancelmo 17.4 H, Plt Count 302, MPV 10.3, Immature Gran % (Auto) 2.400 H, Neut % (Auto) 91.3 H, Lymph % (Auto) 1.6 L, [place] % (Auto) 4.3, Eos % (Auto) 0.0, Baso % (Auto) 0.4, Absolute Neuts (auto) 20.3 H, Absolute Lymphs (auto) 0.36 L, Nucleated RBC % 0.1, Differential Comment SCANNED, Anisocytosis RARE, APTT 86.8 H, Sodium 138, P otassium 6.3 H*, Chloride 112 H, Carbon Dioxide 19.0 L, Anion Gap 7, BUN 105 H*, Creatinine 3.36 H, Estim Creat Clear Calc 15.82, Est GFR (MDRD) Af Amer 22 L, E st GFR (MDRD) Non-Af 19 L, BUN/Creatinine Ratio 31.2 H, Glucose 476 H*, Calcium 8.2 L 12/06/23 06:45: Sodium 137, Potassium 6.2 H*, Chloride 111 H, Carbon Dioxide 19.0 L, Anion Gap 7, BUN 109 H*, Creatinine 3.49 H, Estim Creat Clear Calc 15.23, Est GFR (MDRD) Af Amer 21 L, Est GFR (MDRD) Non-Af 18 L, BUN/Creatinine Ratio 31.2 H, Glucose 542 H*, Calcium 8.3 L Rhythm Strip Rhythm Strip: Sinus Rhythm Rate: 92 Ectopy: None Imaging Radiology Impression Renal Ultrasound 12/05/23 06:53 IMPRESSION: Moderate degree of left hydronephrosis. Left intrarenal calculus. Electronically Signed: Jaeln Rodriguez MD at 10:07 EDT , Chest X-Ray 12/05/23 06:55 IMPRESSION: Unchanged appearance to right greater than left airspace disease. Electronically Signed: Odette Waterman MD at 7:39 EDT , Venous Doppler Study 12/05/23 08:34 Interpretation Summary Deep veins of the bilateral lower extremities are patent and compressible segmentally. There is no evidence of bilateral lower extremity deep vein thrombosis. The bilateral great saphenous veins appear patent and compressible segmentally. Ordering Physician: Bret Lobo Referring Physician: Derek Singh Chi Performed By: Hipolito Carrillo, T Chest X-Ray 12/05/23 14:15 IMPRESSION: The tip of the right-sided PICC line catheter is at the junction of the superior vena cava and right atrium. The remainder of the examination is unchanged. Electronically Signed: Jalen Rodriguez MD at 14:48 EDT ,
[2023-12-06] MEDS: Amiodarone 200 MG Tablet PO (07:50)
[2023-12-06] MEDS: Senna/Docusate Sodium 1 Tablet GT (07:50)
[2023-12-06] MEDS: Insulin Glargine-YFGN 100 UNIT/ML Pen 40 UNIT SC (07:51)
[2023-12-06] MEDS: 0.9% Normal Saline (250mL Bag) 250 ML 15 ML IV ×2 (08:01→08:28)
[2023-12-06] MEDS: Chlorhexidine 15 ML PO (08:17)
[2023-12-06] MEDS: Pantoprazole Sodium 40 MG in 0.9% Normal Saline (100mL MB+) 100 ML 330 MG IV (08:29)
[2023-12-06] MEDS: TITRATION PARAMETER CHANGE 1 EACH IV ×3 (08:56→18:55)
[2023-12-06] MEDS: Cefepime HCl 1 GM in 0.9% Normal Saline (50mL MB+) 50 ML IV (09:25)
[2023-12-06] MEDS: Propofol 10MG/Ml 1,000 MG/100 ML Bottle 5.3 MG CONT INF (09:48)
[2023-12-06 10:21] LABS: CPK Total, Creatine Kinase 1548 U/L (39-308); Triglycerides 116 mg/dL
--- NOTE | 2023-12-06 10:29 | PCM.PN.ID ---
Physical Exam Narrative On vent, fever overnight, family at bedside Const no apparent distress Resp Effort and Inspection: mechanically ventilated Auscultation: diminished lung sounds Cardio Negative for regular rate or regular rhythm GI soft to palpation, non-tender and non-distended Skin no rashes or lesions noted ID ID: Route of nutrition/ use of supplements: [] Nutritional Intake: [] IV Site: [] Chopra Catheter: [] Assessment & Plan Assessment/Plan (1) Respiratory failure: (2) Pneumonia: (3) Chronic kidney disease, stage III (moderate): QUALIFIERS: Chronic kidney disease stage 3 subtype: stage 3a (GFR 45-59) Qualified Code(s): N18.31 - Chronic kidney disease, stage 3a (4) Sepsis: PLAN: Enterobacter pneumonia - cont cefepime enrique uti - hydro and stone seen with planned urology procedure, con fluconazole. Will follow (5) Hydronephrosis:
[2023-12-06] MEDS: Norepinephrine 8 MG in 0.9% Normal Saline (250mL Bag) 242 ML 18.8 MG CONT INF (10:34)
[2023-12-06] MEDS: Insulin Glargine-YFGN 100 UNIT/ML Pen 10 UNIT SC (11:03)
--- NOTE | 2023-12-06 11:30 | CASEMGMT ---
Social Work SW met with pt's dgt and offered emotional support. Dgt aware that SW will remain available should needs arise. JOEY Smith
[2023-12-06 11:57] LABS: Bedside Glucose 481 mg/dL (74-106)
[2023-12-06] MEDS: Insulin Lispro 100 UNIT/ML INSULN.PEN 15 UNIT SC (12:15)
[2023-12-06] MEDS: fentaNYL drip 100 ML 7.5 MCG CONT INF (12:59)
[2023-12-06 13:48] LABS: Partial Thromboplast Time 149.2 Seconds (24.1-36.2)
--- NOTE | 2023-12-06 14:49 | CON.PCM.RE_ITS ---
Documented by User: MIRIAM Daniels 12/06/23 15:08 Assessment & Plan Assessment/Plan (1) Acute kidney injury: (2) Sepsis: (3) Hydronephrosis: (4) Hyperglycemia due to diabetes mellitus: PLAN: Plan This is an 88-year-old male with past medical history significant for hypertension, A-fib, CKD stage III who presented to the emergency room on December 01 with complaints of shortness of breath. Workup in the emergency room chest x- ray showed bilateral pleural effusions and infiltrates, patient initially was requiring BiPAP however respiratory status worsened and he is now on ventilator support. Patient is also on Levophed, blood pressures improved and rate is 5 mcg/hr currently. Nephrology consulted in view of rising serum creatinine. Reviewing baseline creatinine trends, patient has had elevated creatinine for a few years with baseline ranging around 1.7mg/dL. Labs before hospitalization on October 29 serum creatinine 1.78 mg/dL. Patient's creatinine was 3.0 on admission, improved to 2.17 on December 03, today creatinine is up to 3.49, potassium is 6.2. Renal ultrasound showed moderate degree of left hydronephrosis, urology consulted, patient possibly to have nephrostomy tube placement tomorrow. Likely ELISEO multifactoral in setting of sepsis, hypotension with poor perfusion, and hydronephrosis. At this time there is no acute indication for renal placement therapy. Patient does have adequate urine output. He is hyperkalemic likely secondary to hyperglycemia. Will hold off on treatment for hyperkalemia and continue treatment for hyperglycemia. Bicarb today is 19.0. Discussed nephrology plan with patient's daughter who is at bedside. Labs ordered for morning. CODE STATUS was changed to DNR CCA with no intubation. Further orders forthcoming as hospitalization evolves, thank you for allowing us to participate in the care of Mr. Nagy. HPI Consult Data Date of Consult: 12/06/23 HPI Narrative HPI Narrative: JACKSON GRADY, is a 88 M with past medical history significant for hypertension, CKD stage III, atrial fibrillation on chronic anticoagulation, peripheral vascular disease who presented to the emergency room on December 01 with complaints of shortness of breath. Workup in the emergency room concerning for pneumonia, chest x-ray showed infiltrates and bilateral effusions. Patient did require BiPAP however unfortunately respiratory status worsened and patient is now on ventilator support. Patient is also being seen by urology, renal US showed significant left hydro and patient being considered for neph tube placement, possibly tomorrow. Nephrology consulted in view of rising serum creatinine and potassium. Patient's daughter is at bedside information is gathered from daughter. 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 Information also gathered from chart. [facility] Medical History intermediate current use of amiodarone Hyperkalemia Type 2 DM with CKD and hypertension PAF (paroxysmal atrial fibrillation) Atrial fibrillation with rapid ventricular response Gross hematuria Dyspnea Anxiety Smoker Dementia Complication, blocked Thorne catheter Nonobstructive atherosclerosis of coronary artery Essential (primary) hypertension History of CVA (cerebrovascular accident) (02/25/18) History of cancer of larynx Carotid stenosis Carotid arterial disease Hyperlipidemia Home Medications ?Medication ?Instructions ?Recorded ?Last Taken ?Type levothyroxine 50 mcg tablet 50 mcg PO DAILY 10/12/21 Unknown History mirtazapine 15 mg tablet 15 mg PO QHS mental health 10/12/21 Unknown History polysaccharide iron complex 150 mg 150 mg PO DAILY 10/12/21 Unknown History iron capsule sennosides 8.6 mg-docusate sodium 1 tab-cap PO BID 06/25/23 Unknown History 50 mg tablet (Senna-S) amiodarone 200 mg tablet See Rx Instructions .Route 08/27/23 Unknown Rx .COMPLEX #90 tabs amlodipine 5 mg tablet 5 mg PO DAILY #90 tabs 08/27/23 Unknown Rx atorvastatin 40 mg tablet 40 mg PO QHS cholesterol #90 tabs 08/27/23 Unknown Rx lisinopril 20 mg tablet 20 mg PO DAILY #90 tabs 08/27/23 Unknown Rx metoprolol tartrate 50 mg tablet 25 mg (1/2 x 50 mg) PO BID #90 tabs 08/27/23 Unknown Rx apixaban 2.5 mg tablet (Eliquis) 2.5 mg PO BID Dose decreased to 08/28/23 Unknown Rx 2.5 mg twice daily #180 tabs azithromycin 250 mg tablet See Rx Instructions PO .COMPLEX #6 11/28/23 Unknown Rx (Zithromax Z-Henry) tabs ipratropium 0.5 mg-albuterol 3 mg 3 ml continuous nebulization ONCE 11/28/23 Unknown Clinic (2.5 mg base)/3 mL nebulization #1 mL soln prednisone 10 mg tablet See Rx Instructions PO DAILY #30 11/28/23 Unknown Rx tabs Allergy/AdvReac Type Severity Reaction Status Date / Time alcohol Allergy Unknown Unknown Verified 12/02/23 16:11 Family History Other CAD (coronary artery disease) Heart disease Hypertension Surgical History History of left-sided carotid endarterectomy (07/2010) History of left heart catheterization (09/27/05) Hx of tonsillectomy History of appendectomy History of bilateral knee replacement (2007) Social History Smoking Status: Current every day smoker tobacco type: cigarettes alcohol intake: former details: Quit 19 years ago substance use type: does not use caffeine: Yes Type: coffee ROS ROS Narrative Unable to obtain Physical Exam Narrative On ventilator support, no apparent distress S1 S2 rate controlled Lung sounds clear anteriorly, no rales or rhonchi Abdomen soft No significant pitting edema bilateral legs indwelling thorne Lab / Micro Data 12/06/23 05:30 12/06/23 18:00 Labs: Laboratory Results - last 24 hr 12/05/23 16:40: APTT 59.6 H 12/05/23 18:08: POC Glucose 278 H 12/05/23 20:28: POC Glucose 283 H 12/05/23 22:55: APTT Cancelled 12/06/23 00:02: POC Glucose 279 H 12/06/23 00:15: APTT 60.7 H 12/06/23 05:16: POC Glucose 371 H 12/06/23 05:30: WBC 22.3 H, RBC 3.77 L, Hgb 11.3 L, Hct 38.3 L, MCV 101.6 H, MCH 30.0, MCHC 29.5 L, RDW Std Deviation 66.3 H, RDW Coeff of Ancelmo 17.4 H, Plt Count 302, MPV 10.3, Immature Gran % (Auto) 2.400 H, Neut % (Auto) 91.3 H, Lymph % (Auto) 1.6 L, [place] % (Auto) 4.3, Eos % (Auto) 0.0, Baso % (Auto) 0.4, Absolute Neuts (auto) 20.3 H, Absolute Lymphs (auto) 0.36 L, Nucleated RBC % 0.1, Differential Comment SCANNED, Anisocytosis RARE, APTT 86.8 H, Sodium 138, P otassium 6.3 H*, Chloride 112 H, Carbon Dioxide 19.0 L, Anion Gap 7, BUN 105 H*, Creatinine 3.36 H, Estim Creat Clear Calc 15.82, Est GFR (MDRD) Af Amer 22 L, E st GFR (MDRD) Non-Af 19 L, BUN/Creatinine Ratio 31.2 H, Glucose 476 H*, Calcium 8.2 L 12/06/23 06:45: Sodium 137, Potassium 6.2 H*, Chloride 111 H, Carbon Dioxide 19.0 L, Anion Gap 7, BUN 109 H*, Creatinine 3.49 H, Estim Creat Clear Calc 15.23, Est GFR (MDRD) Af Amer 21 L, Est GFR (MDRD) Non-Af 18 L, BUN/Creatinine Ratio 31.2 H, Glucose 542 H*, Calcium 8.3 L, Total Creatine Kinase 1548 H, Triglycerides 116 12/06/23 11:35: POC Glucose 481 H* 12/06/23 13:15: APTT 149.2 H* Rhythm Strip Rhythm Strip: Sinus Rhythm Rate: 92 Ectopy: None Imaging Radiology Impression Venous Doppler Study 12/05/23 08:34 Interpretation Summary Deep veins of the bilateral lower extremities are patent and compressible segmentally. There is no evidence of bilateral lower extremity deep vein thrombosis. The bilateral great saphenous veins appear patent and compressible segmentally. Ordering Physician: Bret Lobo Referring Physician: Derek Singh Chi Performed By: Hipolito Carrillo RVT Chest X-Ray 12/05/23 14:15 IMPRESSION: The tip of the right-sided PICC line catheter is at the junction of the superior vena cava and right atrium. The remainder of the examination is unchanged. Electronically Signed: Jalen Rodriguez MD at 14:48 EDT , Documented by User: Dr. Gale Love MD 12/06/23 19:53 Assessment & Plan Assessment/Plan (1) Acute kidney injury: (2) Sepsis: (3) Hydronephrosis: (4) Hyperglycemia due to diabetes mellitus: PLAN: Plan This is an 88-year-old male with past medical history significant for hypertension, A-fib, CKD stage III who presented to the emergency room on December 01 with complaints of shortness of breath. Workup in the emergency room chest x- ray showed bilateral pleural effusions and infiltrates, patient initially was requiring BiPAP however respiratory status worsened and he is now on ventilator support. Patient is also on Levophed, blood pressures improved and rate is 5 mcg/hr currently. Nephrology consulted in view of rising serum creatinine. Reviewing baseline creatinine trends, patient has had elevated creatinine for a few years with baseline ranging around 1.7mg/dL. Labs before hospitalization on October 29 serum creatinine 1.78 mg/dL. Patient's creatinine was 3.0 on admission, improved to 2.17 on December 03, today creatinine is up to 3.49, potassium is 6.2. Renal ultrasound showed moderate degree of left hydronephrosis, urology consulted, patient possibly to have nephrostomy tube placement tomorrow. Likely ELISEO multifactoral in setting of sepsis, hypotension with poor perfusion, and hydronephrosis. At this time there is no acute indication for renal placement therapy. Patient does have adequate urine output. He is hyperkalemic likely secondary to hyperglycemia. Will hold off on treatment for hyperkalemia and continue treatment for hyperglycemia. Bicarb today is 19.0. Discussed nephrology plan with patient's daughter who is at bedside. Labs ordered for morning. CODE STATUS was changed to DNR CCA with no intubation. Further orders forthcoming as hospitalization evolves, thank you for allowing us to participate in the care of Mr. Nagy. 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 ELISEO likely septic shock, Hyperkalemia could be predominantly from hyperglycemia. Nephrostomy when able. 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 Hyperkalemia Type 2 DM with CKD and hypertension PAF (paroxysmal atrial fibrillation) Atrial fibrillation with rapid ventricular response Gross hematuria Dyspnea Anxiety Smoker Dementia Complication, blocked Thorne catheter Nonobstructive atherosclerosis of coronary artery Essential (primary) hypertension History of CVA (cerebrovascular accident) (02/25/18) History of cancer of larynx Carotid stenosis Carotid arterial disease Hyperlipidemia Home Medications ?Medication ?Instructions ?Recorded ?Last Taken ?Type levothyroxine 50 mcg tablet 50 mcg PO DAILY 10/12/21 Unknown History mirtazapine 15 mg tablet 15 mg PO QHS mental health 10/12/21 Unknown History polysaccharide iron complex 150 mg 150 mg PO DAILY 10/12/21 Unknown History iron capsule sennosides 8.6 mg-docusate sodium 1 tab-cap PO BID 06/25/23 Unknown History 50 mg tablet (Senna-S) amiodarone 200 mg tablet See Rx Instructions .Route 08/27/23 Unknown Rx .COMPLEX #90 tabs amlodipine 5 mg tablet 5 mg PO DAILY #90 tabs 08/27/23 Unknown Rx atorvastatin 40 mg tablet 40 mg PO QHS cholesterol #90 tabs 08/27/23 Unknown Rx lisinopril 20 mg tablet 20 mg PO DAILY #90 tabs 08/27/23 Unknown Rx metoprolol tartrate 50 mg tablet 25 mg (1/2 x 50 mg) PO BID #90 tabs 08/27/23 Unknown Rx apixaban 2.5 mg tablet (Eliquis) 2.5 mg PO BID Dose decreased to 08/28/23 Unknown Rx 2.5 mg twice daily #180 tabs azithromycin 250 mg tablet See Rx Instructions PO .COMPLEX #6 11/28/23 Unknown Rx (Zithromax Z-Henry) tabs ipratropium 0.5 mg-albuterol 3 mg 3 ml continuous nebulization ONCE 11/28/23 Unknown Clinic (2.5 mg base)/3 mL nebulization #1 mL soln prednisone 10 mg tablet See Rx Instructions PO DAILY #30 11/28/23 Unknown Rx tabs Allergy/AdvReac Type Severity Reaction Status Date / Time alcohol Allergy Unknown Unknown Verified 12/02/23 16:11 Family History Other CAD (coronary artery disease) Heart disease Hypertension Surgical History History of left-sided carotid endarterectomy (07/2010) History of left heart catheterization (09/27/05) Hx of tonsillectomy History of appendectomy History of bilateral knee replacement (2007) Social History Smoking Status: Current every day smoker tobacco type: cigarettes alcohol intake: former details: Quit 19 years ago substance use type: does not use caffeine: Yes Type: coffee Lab / Micro Data 12/06/23 05:30 12/06/23 18:00
--- NOTE | 2023-12-06 16:38 | PN.HOSP_ITS ---
Reason for Visit Reason for Visit: Diagnoses Sepsis, unspecified organism (12/02/23) Pneumonia, unspecified organism (12/02/23) Respiratory failure, unspecified, unspecified whether with hypoxia or hypercapnia (12/02/23) Unspecified hydronephrosis (12/02/23) Chronic kidney disease, stage 3a (12/02/23) Urinary tract infection, site not specified (12/02/23) Hypoxemia (12/02/23) Subjective Subjective Patient was seen and examined today, he is sedated and on the ventilator. I talked briefly with critical care about his medical care. Objective Data Objective Data Vital Signs: Vital Signs Temp Pulse Resp BP Pulse Ox O2 Del Method O2 Flow Rate 100.8 F H 96 20 H 102/50 L 94 Mechanical Ventilator 100 12/06/23 15:00 12/06/23 15:35 12/06/23 15:35 12/06/23 16:00 12/06/23 15:35 12/06/23 15:00 12/05/23 18:00 FiO2 60 12/06/23 15:35 Oxygen Flow Rate (L/min) 100 Oxygen Delivery Method Mechanical Ventilator Weight: 88.5 kg Body Mass Index (BMI) 30.5 Intake & Output: Intake and Output for Last 24 Hours 12/04/23 12/05/23 12/06/23 23:59 23:59 23:59 Intake Total 1642.60 / 1757.70 3718.79 / 3853.99 1609.94 / 1609.94 Output Total 650 / 650 490 / 740 925 / 925 Balance 992.60 / 1107.70 3228.79 / 3113.99 684.94 / 684.94 Lab / Micro Data 12/06/23 05:30 12/06/23 06:45 Labs: Laboratory Results - last 24 hr 12/05/23 16:40: APTT 59.6 H 12/05/23 18:08: POC Glucose 278 H 12/05/23 20:28: POC Glucose 283 H 12/05/23 22:55: APTT Cancelled 12/06/23 00:02: POC Glucose 279 H 12/06/23 00:15: APTT 60.7 H 12/06/23 05:16: POC Glucose 371 H 12/06/23 05:30: WBC 22.3 H, RBC 3.77 L, Hgb 11.3 L, Hct 38.3 L, MCV 101.6 H, MCH 30.0, MCHC 29.5 L, RDW Std Deviation 66.3 H, RDW Coeff of Ancelmo 17.4 H, Plt Count 302, MPV 10.3, Immature Gran % (Auto) 2.400 H, Neut % (Auto) 91.3 H, Lymph % (Auto) 1.6 L, [place] % (Auto) 4.3, Eos % (Auto) 0.0, Baso % (Auto) 0.4, Absolute Neuts (auto) 20.3 H, Absolute Lymphs (auto) 0.36 L, Nucleated RBC % 0.1, Differential Comment SCANNED, Anisocytosis RARE, APTT 86.8 H, Sodium 138, P otassium 6.3 H*, Chloride 112 H, Carbon Dioxide 19.0 L, Anion Gap 7, BUN 105 H*, Creatinine 3.36 H, Estim Creat Clear Calc 15.82, Est GFR (MDRD) Af Amer 22 L, E st GFR (MDRD) Non-Af 19 L, BUN/Creatinine Ratio 31.2 H, Glucose 476 H*, Calcium 8.2 L 12/06/23 06:45: Sodium 137, Potassium 6.2 H*, Chloride 111 H, Carbon Dioxide 19.0 L, Anion Gap 7, BUN 109 H*, Creatinine 3.49 H, Estim Creat Clear Calc 15.23, Est GFR (MDRD) Af Amer 21 L, Est GFR (MDRD) Non-Af 18 L, BUN/Creatinine Ratio 31.2 H, Glucose 542 H*, Calcium 8.3 L, Total Creatine Kinase 1548 H, Triglycerides 116 12/06/23 11:35: POC Glucose 481 H* 12/06/23 13:15: APTT 149.2 H* Micro: Microbiology 12/02/23 14:50 Blood Culture (Wb) - Anticubital Right Blood Culture - Preliminary No growth in 48 hours. 12/02/23 14:40 Blood Culture (Wb) - Anticubital Left Blood Culture - Preliminary No growth in 48 hours. 12/02/23 17:00 Urine Catheter - Chopra Urine Culture - Final Presumptive C albicans 12/02/23 17:05 Sputum, Induced/Lukens Gram Stain - Final 12/02/23 17:05 Sputum, Induced/Lukens Respiratory Culture - Final Enterobacter cloacae complex 12/03/23 08:29 Mucosa - Nasopharyngeal Respiratory Panel (PCR) - Final 12/03/23 08:49 Urine Catheter - Chopra Legionella Antigen - Final 12/03/23 08:49 Urine Catheter - Chopra Streptococcus pneumoniae Antigen (M - Final 12/02/23 19:18 Wound - Nose Skin and Soft Tissue MRSA/MSSA (PCR - Final 12/02/23 15:27 Mucosa - Nose SARS-CoV-2, Influenza & RSV (PCR) - Final Radiography Diagnostic Testing: Radiology Impression Venous Doppler Study 12/05/23 08:34 Interpretation Summary Deep veins of the bilateral lower extremities are patent and compressible segmentally. There is no evidence of bilateral lower extremity deep vein thrombosis. The bilateral great saphenous veins appear patent and compressible segmentally. Ordering Physician: Bret Lobo Referring Physician: Derek Singh Chi Performed By: Hipolito Carrillo RVT Rhythm Strip Rhythm Strip: Sinus Rhythm Rate: 92 Ectopy: None Physical Exam Const Constitutional Narrative: Patient is sedated and on the ventilator HEENT normocephalic, head/scalp atraumatic and moist oral mucous membranes Eyes conjunctivae normal Neck no JVD and thyroid normal General: trachea midline Resp no retractions, no use of accessory muscles and clear to auscultation bilaterally Resp Narrative: Patient is sedated and on the ventilator Auscultation: Negative for rales, rhonchi or wheezes Cardio regular rate, regular rhythm, S1 normal heart sound, S2 normal heart sound, no murmurs, no rub and no gallops GI normal to inspection, nondistended, normoactive bowel sounds, soft to palpation, non-tender and non-distended Extremity Extremity Narrative: Generalized edema is noted over the patient's lower legs. Skin no rashes or lesions noted Neuro Neuro Narrative: Patient is sedated and on the ventilator Assessment & Plan Assessment/Plan (1) Sepsis: PLAN: Plan 1. 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-patient will remain on his present medications #3 acute kidney injury on a backdrop of chronic kidney disease stage III a- nephrology is participating in his care, he will undergo placement of a left nephrostomy tube due to hydronephrosis tomorrow #4 type 2 diabetes-blood sugars will be monitored, sliding scale insulin will be administered as needed #5 hyperkalemia-according to nephrology, they feel the hyper kalemia secondary to elevated glucose, they did not recommend any additional treatment at this time, labs will be monitored #6 chronic anticoagulation secondary to paroxysmal atrial fib-patient is currently on heparin Patient's CODE STATUS was changed today to a DNR CC arrest with intubation. Total clinical time spent by myself addressing the patient's medical issues, reviewing all of his data, and collaborating with patient's care team: 55 minutes Charges/Coding Visit Charges Inpatient E&M: 32613 Subs Hosp L2
[2023-12-06] MEDS: Vital AF 1.2 Cal Liquid 1,000 ML 60 ML GT ×2 (18:17)
[2023-12-06 18:18] LABS: Bedside Glucose > 500 mg/dL (74-106)
[2023-12-06 18:34] LABS: Anion Gap 10 (5-15); BUN 125 mg/dL (7-18); BUN/Creat Ratio 32.6 RATIO (10-20); Calcium,Total 8.1 mg/dL (8.5-10.1); Chloride 109 mmol/L (98-107); Creatinine, Serum 3.83 mg/dL (0.70-1.30); EST Glomerular Filtration Rate 16 mL/min (>60); Est Glom Filt Rate - Afr Amer 19 mL/min (>60); Estimated Creatinine Clearance 13.88 ml/min; Glucose 695 mg/dL (74-106); Potassium 6.1 mmol/L (3.5-5.1); Sodium Level 138 mmol/L (136-145)
[2023-12-06 21:06] LABS: Bedside Glucose > 500 mg/dL (74-106)
[2023-12-06] MEDS: Insulin Glargine-YFGN 100 UNIT/ML Pen 50 UNIT SC (21:18)
[2023-12-06] MEDS: Mirtazapine 15 MG Tablet GT (21:19)
[2023-12-06] MEDS: Atorvastatin Calcium 40 MG Tablet GT (21:19)
[2023-12-06] MEDS: Senna/Docusate Sodium 1 Tablet 2 TABLET GT (21:19)
[2023-12-06 23:13] LABS: Partial Thromboplast Time 48.1 Seconds (24.1-36.2)
[2023-12-07] VITALS (21 sets, daily range): BP systolic 103–136; BP diastolic 43–56; PULSE 54–91; RESP 12–82; TEMP 36.6–37.5; O2SAT 90–94; BMI 30.7
[2023-12-07] MEDS: Chlorhexidine 15 ML PO ×2 (00:47→10:42)
[2023-12-07] MEDS: Insulin Lispro 100 UNIT/ML INSULN.PEN SC ×2 (01:08→06:00)
[2023-12-07 02:48] LABS: Bedside Glucose > 500 mg/dL (74-106)
[2023-12-07] MEDS: Propofol 10MG/Ml 1,000 MG/100 ML Bottle 2.7 MG CONT INF (03:00)
[2023-12-07] MEDS: fentaNYL drip 100 ML 7.5 MCG CONT INF (03:00)
[2023-12-07] MEDS: Nystatin Powder 15gm Bottle 1 APPLIC TOPICAL (07:46)
[2023-12-07] MEDS: Levothyroxine 50 MCG Tablet GT (07:47)
[2023-12-07 08:42] LABS: Albumin, Serum 1.3 g/dL (3.2-5.0); BUN 137 mg/dL (7-18); BUN/Creat Ratio 36.2 RATIO (10-20); Calcium,Total 8.1 mg/dL (8.5-10.1); Chloride 114 mmol/L (98-107); Creatinine, Serum 3.78 mg/dL (0.70-1.30); EST Glomerular Filtration Rate 16 mL/min (>60); Est Glom Filt Rate - Afr Amer 20 mL/min (>60); Glucose 548 mg/dL (74-106); Phosphorus 5.2 mg/dL (2.5-4.9); Potassium 5.6 mmol/L (3.5-5.1); Sodium Level 139 mmol/L (136-145)
--- NOTE | 2023-12-07 09:10 | PCM.PN.REN ---
Subjective Subjective Intubated. FiO2 50. urine output picked up. about 1 L overnight. cr somewhat better Objective Data Objective Data Vital Signs: Vital Signs Temp Pulse Resp BP Pulse Ox O2 Del Method O2 Flow Rate 99.4 F H 84 18 112/56 L 90 Mechanical Ventilator 100 12/07/23 08:00 12/07/23 08:00 12/07/23 08:00 12/07/23 08:00 12/07/23 08:00 12/07/23 08:00 12/05/23 18:00 FiO2 50 12/07/23 08:00 Oxygen Flow Rate (L/min) 100 Oxygen Delivery Method Mechanical Ventilator Weight: 88.9 kg Body Mass Index (BMI) 30.7 Intake & Output: Intake and Output for Last 24 Hours 12/05/23 12/06/23 12/07/23 23:59 23:59 23:59 Intake Total 3718.79 / 3853.99 2732.89 / 2735.59 1095.80 / 1095.80 Output Total 490 / 740 1015 / 1665 1100 / 1100 Balance 3228.79 / 3113.99 1717.89 / 1070.59 -4.20 / -4.20 Lab / Micro Data 12/06/23 05:30 12/07/23 08:05 Labs: Laboratory Results - last 24 hr 12/06/23 06:45: Total Creatine Kinase 1548 H, Triglycerides 116 12/06/23 11:35: POC Glucose 481 H* 12/06/23 13:15: APTT 149.2 H* 12/06/23 17:58: POC Glucose > 500 H* 12/06/23 18:00: Sodium 138, Potassium 6.1 H*, Chloride 109 H, Carbon Dioxide 19.0 L, Anion Gap 10, BUN 125 H*, Creatinine 3.83 H, Estim Creat Clear Calc 13.88, Est GFR (MDRD) Af Amer 19 L, Est GFR (MDRD) Non-Af 16 L, BUN/Creatinine Ratio 32.6 H, Glucose 695 H*, Calcium 8.1 L 12/06/23 20:47: POC Glucose > 500 H* 12/06/23 22:45: APTT 48.1 H 12/07/23 01:06: POC Glucose > 500 H* 12/07/23 08:05: Sodium 139, Potassium 5.6 H, Chloride 114 H, Carbon Dioxide 19.0 L, BUN 137 H*, Creatinine 3.78 H, Estim Creat Clear Calc 14.10, Est GFR (MDRD) Af Amer 20 L, Est GFR (MDRD) Non-Af 16 L, BUN/Creatinine Ratio 36.2 H, Glucose 548 H*, Calcium 8.1 L, Phosphorus 5.2 H, Albumin 1.3 L Micro: Microbiology 12/02/23 14:50 Blood Culture (Wb) - Anticubital Right Blood Culture - Preliminary No growth in 48 hours. 12/02/23 14:40 Blood Culture (Wb) - Anticubital Left Blood Culture - Preliminary No growth in 48 hours. 12/02/23 17:00 Urine Catheter - Thorne Urine Culture - Final Presumptive C albicans 12/02/23 17:05 Sputum, Induced/Lukens Gram Stain - Final 12/02/23 17:05 Sputum, Induced/Lukens Respiratory Culture - Final Enterobacter cloacae complex 12/03/23 08:29 Mucosa - Nasopharyngeal Respiratory Panel (PCR) - Final 12/03/23 08:49 Urine Catheter - Thorne Legionella Antigen - Final 12/03/23 08:49 Urine Catheter - Thorne Streptococcus pneumoniae Antigen (M - Final 12/02/23 19:18 Wound - Nose Skin and Soft Tissue MRSA/MSSA (PCR - Final 12/02/23 15:27 Mucosa - Nose SARS-CoV-2, Influenza & RSV (PCR) - Final Rhythm Strip Rhythm Strip: Sinus Rhythm Rate: 92 Ectopy: None Physical Exam Narrative On ventilator support, no apparent distress S1 S2 rate controlled Lung sounds clear anteriorly, no rales or rhonchi Abdomen soft No significant pitting edema bilateral legs indwelling thorne Assessment & Plan Assessment/Plan (1) Acute kidney injury: (2) Sepsis: (3) Hydronephrosis: (4) Hyperglycemia due to diabetes mellitus: PLAN: Plan This is an 88-year-old male with past medical history significant for hypertension, A-fib, CKD stage III who presented to the emergency room on December 01 with complaints of shortness of breath. Workup in the emergency room chest x-ray showed bilateral pleural effusions and infiltrates, patient initially was requiring BiPAP however respiratory status worsened and he is now on ventilator support. Patient is also on Levophed, blood pressures improved and rate is 5 mcg/hr currently. Nephrology consulted in view of rising serum creatinine. ELISEO CKD 3B baseline cr around 1.7. ELISEO is likely septic ATN. urine output has picked up. acidosis stable. 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 mostly mediated by hyperglycemia. hyperglycemia management as per primary. K better today HYdronephrosis. possible PNT tube placement
--- NOTE | 2023-12-07 10:33 | PCM.PN.TICU ---
Objective Data Objective Data Vital Signs: Vital Signs Last response Temperature 37.4 C H 12/07/23 08:00 Temperature Source Core 12/07/23 08:00 Pulse Rate 86 12/07/23 10:00 Pulse Strength Weak (1+) 12/06/23 10:00 Respiratory Rate 16 12/07/23 10:00 Respiratory Effort Mechanically Ventilated 12/07/23 08:30 Respiratory Depth Normal 12/06/23 16:00 Respiratory Pattern Normal 12/07/23 08:54 Blood Pressure 104/52 L 12/07/23 10:00 Blood Pressure Mean 69 12/07/23 10:00 Blood Pressure Source Monitor 12/07/23 10:00 Blood Pressure Position Semi-Fowlers 12/07/23 10:00 Blood Pressure Location Left Forearm 12/07/23 10:00 Pulse Ox 93 12/07/23 10:00 Oxygen Delivery Method Mechanical Ventilator 12/07/23 10:00 Oxygen Flow Rate (L/min) 100 12/05/23 18:00 Fraction of Inspired Oxygen (FIO2) 50 12/07/23 10:00 I&O: I&O Last 24 Hours 12/06/23 12/06/23 12/07/23 11:59 23:59 11:59 Intake Total 1408.24 / 2735.59 1324.65 / 2735.59 1158.40 / 1158.40 Output Total 625 / 1665 390 / 1665 1100 / 1100 Balance 783.24 / 1070.59 934.65 / 1070.59 58.40 / 58.40 I&O: Total Stay 12/02/23 14:46 thru 12/07/23 10:00 Intake Total 84566.22 Output Total 4645 Balance 8158.22 Current Meds Ordered / Administered: Current meds ordered / Administered Generic Name Dose Route Start Last Admin Trade Name Freq PRN Reason Stop Dose Admin Acetaminophen 650 mg 12/05/23 20:04 12/06/23 05:14 Acetaminophen 650 Mg/20 Ml Udc PO 650 mg Q4H PRN PRN Administration fever, pain 1-10 Amiodarone HCl 200 mg 12/04/23 17:45 12/06/23 07:50 Amiodarone 200 Mg Tablet PO 200 mg DAILY SASCHA Administration Atorvastatin Calcium 40 mg 12/02/23 22:00 12/06/23 21:19 Atorvastatin Calcium 40 Mg Tablet GT 40 mg QHS SASCHA Administration Chlorhexidine Gluconate 15 ml 12/03/23 10:00 12/07/23 00:47 Chlorhexidine 15 Ml PO 15 ml BID SASCHA Administration Glucagon 1 mg 12/02/23 18:18 Glucagon 1 Mg/Ml Syringe IM X1 PRN HYPOGLYCEMIA Protocol Heparin Sodium (Porcine) 0 unit 12/05/23 08:40 Heparin Injection (Vial) 5,000 Unit/Ml Vial IV UD PRN dose adjustment Protocol Fentanyl 100 mls @ 5 mls/hr 12/02/23 17:05 12/07/23 10:00 CONT INF 75 mcg/hr UD SASCHA 7.5 mls/hr Titration Protocol 50 MCG/HR Dextrose 250 mls @ 999 mls/hr 12/02/23 18:18 Dextrose 10%-Water IV .Q16M PRN HYPOGLYCEMIA Protocol Pantoprazole Sodium 40 mg/ 110 mls @ 330 mls/hr 12/03/23 10:00 12/06/23 08:49 Sodium Chloride IV Infused Q24 SASCHA Infusion Enteral Nutritional Formula 1,000 mls @ 60 mls/hr 12/03/23 10:00 12/07/23 08:12 Vital Af 1.2 Harjinder Liquid GT 0 mls/hr .[id number] SASCHA Infusion Sodium Chloride 250 mls @ 15 mls/hr 12/03/23 11:28 12/06/23 10:00 IV 0 mls/hr .[id number] PRN Infusion Additional IVPB Infusion Sodium Chloride 250 mls @ 15 mls/hr 12/03/23 11:28 IV .[id number] PRN Saline Flush Heparin Sodium/Dextrose 25,000 units in 250 mls @ 12 mls/hr 12/05/23 08:35 12/07/23 08:01 CONT INF 0 units/hr .[id number] SASCHA 0 mls/hr Titration Protocol As Directed Norepinephrine Bitartrate 8 mg 250 mls @ 9.375 mls/hr 12/05/23 10:20 12/07/23 10:00 / Sodium Chloride CONT INF 2 mcg/min .[id number] SASCHA 3.8 mls/hr Titration Protocol 5 MCG/MIN Cefepime HCl 1 gm/ Sodium 50 mls @ 100 mls/hr 12/05/23 13:00 12/06/23 09:55 Chloride IV Infused Q24 SASCHA Infusion Fluconazole 200 mg in 100 mls @ 100 mls/hr 12/06/23 10:00 12/06/23 08:59 IV Infused Q24 SASCHA Infusion Propofol 1,000 mg in 100 mls @ 5.31 mls/hr 12/06/23 09:10 12/07/23 10:00 Diprivan CONT INF 15 mcg/kg/min .Q12H SASCHA 8 mls/hr Titration Protocol 10 MCG/KG/MIN Insulin Glargine 50 unit 12/06/23 22:00 12/06/23 21:18 Insulin Glargine-Yfgn 100 Unit/Ml Pen SC 50 unit BID SASCHA Administration Insulin Human Lispro 0 unit 12/03/23 12:00 12/07/23 06:00 Insulin Lispro 100 Unit/Ml Insuln.Pen SC 11 unit Q6 SASCHA Administration Protocol Levothyroxine Sodium 50 mcg 12/03/23 06:00 12/07/23 07:47 Levothyroxine 50 Mcg Tablet GT 50 mcg DAILY@0600 SASCHA Administration Methylprednisolone 40 mg 12/05/23 10:00 12/06/23 07:50 Methylprednisolone 40 Mg/Ml Vial IV 40 mg DAILY SASCHA Administration Mirtazapine 15 mg 12/02/23 22:00 12/06/23 21:19 Mirtazapine 15 Mg Tablet GT 15 mg QHS SASCHA Administration Nystatin 1 applic 12/04/23 14:00 12/07/23 07:46 Nystatin Powder 15gm Bottle TOPICAL 1 applic TID SASCHA Administration Protocol Ondansetron HCl 4 mg 12/02/23 18:18 Ondansetron 4 Mg/2 Ml Vial IV Q8H PRN PRN NAUSEA/VOMITING Polyethylene Glycol 17 gm 12/05/23 10:00 12/07/23 10:08 Polyethylene Glycol 3350 17 Gm Packet GT Not Given DAILY SASCHA Senna/Docusate Sodium 2 tablet 12/06/23 22:00 12/07/23 10:08 Senna/Docusate Sodium 1 Tablet GT Not Given BID [facility] Sodium Chloride 10 - 40 ml 12/02/23 19:04 12/06/23 08:01 0.9% Saline Lock 10 Ml Syringe IV 20 ml UD PRN Administration SALINE FLUSH Throat Lozenges 1 lozenge 12/02/23 18:18 Benzocaine/Menthol 1 Lozenge MUCOUS MEM Q2H PRN PRN SORE THROAT Lab / Micro Data 12/06/23 05:30 12/07/23 08:05 Labs: Laboratory Results - last 24 hr 12/06/23 11:35: POC Glucose 481 H* 12/06/23 13:15: APTT 149.2 H* 12/06/23 17:58: POC Glucose > 500 H* 12/06/23 18:00: Sodium 138, Potassium 6.1 H*, Chloride 109 H, Carbon Dioxide 19.0 L, Anion Gap 10, BUN 125 H*, Creatinine 3.83 H, Estim Creat Clear Calc 13.88, Est GFR (MDRD) Af Amer 19 L, Est GFR (MDRD) Non-Af 16 L, BUN/Creatinine Ratio 32.6 H, Glucose 695 H*, Calcium 8.1 L 12/06/23 20:47: POC Glucose > 500 H* 12/06/23 22:45: APTT 48.1 H 12/07/23 01:06: POC Glucose > 500 H* 12/07/23 08:05: Sodium 139, Potassium 5.6 H, Chloride 114 H, Carbon Dioxide 19.0 L, BUN 137 H*, Creatinine 3.78 H, Estim Creat Clear Calc 14.10, Est GFR (MDRD) Af Amer 20 L, Est GFR (MDRD) Non-Af 16 L, BUN/Creatinine Ratio 36.2 H, Glucose 548 H*, Calcium 8.1 L, Phosphorus 5.2 H, Albumin 1.3 L Rhythm Strip Rhythm Strip: Sinus Rhythm Rate: 92 Ectopy: None Assessment and Plan . Assessment and plan: Patient seen and examined Chart and data reviewed He remains gravely ill Sedated currently - NAD Low dose NE for BP support UOP remains poor - I/O net (+++) - significant RI and azotemia Serum albumin 1.3 MV 7-8 LPM, PIP 26, 0.5 +10 No new pCXR or ABG Renal U/S noted - I am told that PCN is deferred for now I had a lengthy and tello conversation w/ NOK at BS today regarding condition and overall prognosis Physical Exam: Gen - NAD, sedated HEENT - MMM. obese neck, JACEK Resp - coarse CV - irregRR. No m/g/r Abd - Soft, NT, ND Ext - pitting edema Skin - No rashes? Neuro - sedated, NF I have reviewed the pertinent vital sign, laboratory, and imaging data. ASSESSMENT: # Acute hypoxic respiratory failure requiring MV support # Suspected GNR PNA w/ sepsis syndrome # RI w/ azotemia and right hydronephrosis - oliguric currently # Severe hypoalbuminemia # AF # DM/ASCVD PLAN: -MV support -sedation/analgesia -receiving IV ABX -Follow renal function -enteral nutrition and sq insulin -IV UFH infusing -ongoing care planning Critical Care Time: 50 min The entirety of this encounter was done via Telemedicine
[2023-12-07] MEDS: Pantoprazole Sodium 40 MG in 0.9% Normal Saline (100mL MB+) 100 ML 330 MG IV (10:42)
[2023-12-07] MEDS: Amiodarone 200 MG Tablet PO (10:55)
[2023-12-07 11:55] LABS: Bedside Glucose > 500 mg/dL (74-106)
[2023-12-07] MEDS: Insulin Glargine-YFGN 100 UNIT/ML Pen 50 UNIT SC (12:23)
--- NOTE | 2023-12-07 12:48 | PCM.PN.ID ---
Physical Exam Narrative On vent, no fever, family considering extubation Const no apparent distress Resp Effort and Inspection: mechanically ventilated Cardio Rate: tachycardic GI soft to palpation, non-tender and non-distended Skin no rashes or lesions noted ID ID: Route of nutrition/ use of supplements: [] Nutritional Intake: [] IV Site: [] Chopra Catheter: [] Assessment & Plan Assessment/Plan (1) Respiratory failure: (2) Pneumonia: (3) Chronic kidney disease, stage III (moderate): QUALIFIERS: Chronic kidney disease stage 3 subtype: stage 3a (GFR 45-59) Qualified Code(s): N18.31 - Chronic kidney disease, stage 3a (4) Sepsis: PLAN: Enterobacter pneumonia - cont cefepime, no fever overnight enrique uti - hydro and stone seen with planned urology procedure, cont fluconazole. Will follow (5) Hydronephrosis:
[2023-12-07] MEDS: Insulin Lispro 100 UNIT/ML INSULN.PEN 25 UNIT SC (12:57)
--- NOTE | 2023-12-07 13:07 | CASEMGMT ---
Social Work Pt's daughter Linda and her freedy are at the bedside. SW met with family and provided emotional support. Family aware that SW will remain available should they desire additional support. JOEY Smith
[2023-12-07 13:30] LABS: Bedside Glucose 470 mg/dL (74-106)
--- NOTE | 2023-12-07 15:14 | NURSING ---
Patients daughter came to nursing station and stated that are ready to withdraw care and terminally extubate patient. Dr. King notified for comfort care orders.
--- NOTE | 2023-12-07 15:21 | CHAPLAIN ---
Type of Pastoral Visit _x__ Initial Visit ___ Follow-up Visit ___ On-call Visit ___ General Patient Visit ___ Spiritual Assessment ___ Family Conference ___ Bereavement ___ Rapid Response ___ Code Blue ___ Other (describe below) Pastoral Care Referral From ___ Patient ___ Family _x__ Nurse ___ Physician ___ Marine Pipefitter ___ Disk Operator ___ Other (describe below) Sacrament/Intervention ___ Active listening ___ Anointing ___ Restoration ___ Bereavement ___ Communion ___ Nancy exploration ___ ___ Life review ___ Prayer ___ Reconciliation ___ Sacrament of Sick _x__ Supportive presence ___ Wedding ___ Other (describe below) Pastoral Comments RN notified this senior national account manager that the patient will be extubated later today; daughter and a friend are present in the room; pt has been seen before in previous admissions; offer of support to the family; daughter speaks of the difficulty due to recent of her spouse but denies need for support at this time
[2023-12-07] MEDS: morphine 10 MG/ML Syringe IV (15:25)
[2023-12-07] MEDS: LORazepam 2 MG/ML Syringe IV ×2 (15:25→17:48)
--- NOTE | 2023-12-07 15:41 | NURSING ---
Patient terminally extubated at 1530, family at bedside.
--- NOTE | 2023-12-07 17:19 | PCM.PN.HOSP ---
Reason for Visit Reason for Visit: Diagnoses Sepsis, unspecified organism (12/02/23) Type 2 diabetes mellitus with hyperglycemia (12/02/23) Pneumonia, unspecified organism (12/02/23) Respiratory failure, unspecified, unspecified whether with hypoxia or hypercapnia (12/02/23) Unspecified hydronephrosis (12/02/23) Acute kidney failure, unspecified (12/02/23) Chronic kidney disease, stage 3a (12/02/23) Urinary tract infection, site not specified (12/02/23) Hypoxemia (12/02/23) Subjective Subjective Patient was seen and examined today, had an extensive conversation with his daughter who was in the room at the time my examination and her daughter's best friend. Daughter seemed upset that her father was not improving-he has been on the ventilator for several days now. She does not feel that he would want this continued, I asked her to think about this and give me an answer today as to how to treat the patient. She does not want a nephrostomy tube inserted today-I canceled this procedure. Later on this afternoon, she decided that she would like all care withdrawn and the patient extubated. At the time of this dictation, patient is extubated and is being given drugs for comfort and respiratory distress. Objective Data Objective Data Vital Signs: Vital Signs Temp Pulse Resp BP Pulse Ox O2 Del Method O2 Flow Rate 99.5 F H 91 18 104/47 L 93 Nasal Cannula 2 12/07/23 12:00 12/07/23 15:00 12/07/23 15:00 12/07/23 15:00 12/07/23 15:00 12/07/23 16:00 12/07/23 16:00 FiO2 50 12/07/23 15:00 Oxygen Flow Rate (L/min) 2 Oxygen Delivery Method Nasal Cannula Weight: 88.9 kg Body Mass Index (BMI) 30.7 Intake & Output: Intake and Output for Last 24 Hours 12/05/23 12/06/23 12/07/23 23:59 23:59 23:59 Intake Total 3718.79 / 3853.99 2732.89 / 2735.59 1623.02 / 1623.02 Output Total 490 / 740 1015 / 1665 1550 / 1550 Balance 3228.79 / 3113.99 1717.89 / 1070.59 73.02 / 73.02 Lab / Micro Data 12/06/23 05:30 12/07/23 08:05 Labs: Laboratory Results - last 24 hr 12/06/23 17:58: POC Glucose > 500 H* 12/06/23 18:00: Sodium 138, Potassium 6.1 H*, Chloride 109 H, Carbon Dioxide 19.0 L, Anion Gap 10, BUN 125 H*, Creatinine 3.83 H, Estim Creat Clear Calc 13.88, Est GFR (MDRD) Af Amer 19 L, Est GFR (MDRD) Non-Af 16 L, BUN/Creatinine Ratio 32.6 H, Glucose 695 H*, Calcium 8.1 L 12/06/23 20:47: POC Glucose > 500 H* 12/06/23 22:45: APTT 48.1 H 12/07/23 01:06: POC Glucose > 500 H* 12/07/23 05:10: POC Glucose > 500 H* 12/07/23 08:05: Sodium 139, Potassium 5.6 H, Chloride 114 H, Carbon Dioxide 19.0 L, BUN 137 H*, Creatinine 3.78 H, Estim Creat Clear Calc 14.10, Est GFR (MDRD) Af Amer 20 L, Est GFR (MDRD) Non-Af 16 L, BUN/Creatinine Ratio 36.2 H, Glucose 548 H*, Calcium 8.1 L, Phosphorus 5.2 H, Albumin 1.3 L 12/07/23 12:17: POC Glucose 470 H* Micro: Microbiology 12/02/23 14:50 Blood Culture (Wb) - Anticubital Right Blood Culture - Preliminary No growth in 48 hours. 12/02/23 14:40 Blood Culture (Wb) - Anticubital Left Blood Culture - Preliminary No growth in 48 hours. 12/02/23 17:00 Urine Catheter - Chopra Urine Culture - Final Presumptive C albicans 12/02/23 17:05 Sputum, Induced/Lukens Gram Stain - Final 12/02/23 17:05 Sputum, Induced/Lukens Respiratory Culture - Final Enterobacter cloacae complex 12/03/23 08:29 Mucosa - Nasopharyngeal Respiratory Panel (PCR) - Final 12/03/23 08:49 Urine Catheter - Chopra Legionella Antigen - Final 12/03/23 08:49 Urine Catheter - Chopra Streptococcus pneumoniae Antigen (M - Final 12/02/23 19:18 Wound - Nose Skin and Soft Tissue MRSA/MSSA (PCR - Final 12/02/23 15:27 Mucosa - Nose SARS-CoV-2, Influenza & RSV (PCR) - Final Rhythm Strip Rhythm Strip: Sinus Rhythm Rate: 92 Ectopy: None Physical Exam Const Constitutional Narrative: Patient response to painful stimulation only, he does not respond to verbal commands or cues. General Appearance: well kempt and well developed HEENT normocephalic, head/scalp atraumatic and moist oral mucous membranes Eyes PERRL, EOMs intact bilaterally and conjunctivae normal Neck supple, no JVD, thyroid normal and no carotid bruits General: trachea midline Resp no retractions, no use of accessory muscles and clear to auscultation bilaterally Resp Narrative: Breath sounds are distant bilaterally Auscultation: Negative for rales, rhonchi or wheezes Cardio regular rate, regular rhythm, S1 normal heart sound, S2 normal heart sound, no murmurs, no rub and no gallops GI normal to inspection, nondistended, normoactive bowel sounds, soft to palpation, non-tender and non-distended Extremity Extremity Narrative: There is generalized lower extremity edema noted Skin no rashes or lesions noted General Skin Exam: no breakdown Neuro CN's II-XII intact bilaterally Neuro Narrative: Patient responds to painful stimuli only, he does not respond to any verbal cues or verbal commands. Psych Psych Narrative: Patient is unresponsive to verbal cues or commands, he reacts to painful stimuli Assessment & Plan Assessment/Plan (1) Sepsis: PLAN: Plan 1. Septic shock-again at this time, daughter has withdrawn treatment for the patient except for comfort measures only, he was extubated this afternoon and is currently on room air and does not appear to be in severe distress. Patient is a DNR comfort care only #2 acute hypoxic respiratory failure secondary to pneumonia and acute congestive heart failure with preserved ejection fraction #3 acute kidney injury on a backdrop of chronic kidney disease stage III a #4 type 2 diabetes #5 hyperkalemia #6 chronic anticoagulation secondary to paroxysmal atrial fib-again patient is comfort care at this time Patient's CODE STATUS was changed today to a DNR CC Total clinical time spent by myself addressing the patient's medical issues, reviewing all of his data, and collaborating with patient's care team: 50 minutes Charges/Coding Visit Charges Inpatient E&M: 71462 Subs Hosp L3
[2023-12-07] MEDS: 0.9% Saline Lock 10 ML Syringe IV (19:24)
[2023-12-07] MEDS: Atropine Sulfate 1% 2 ml Bottle 4 DRP PO (19:46)
[2023-12-07] MEDS: Morphine 4 MG/ML Syringe IV (19:48)
--- NOTE | 2023-12-07 20:47 | PCM.HOSP.N ---
Hospitalist Note Notified of patient , DNR-CC, expected event. Date of : 12/07/23 Time of : 2035
--- NOTE | 2023-12-07 20:50 | NURSING ---
Time of 2035. Absence of respirations and heart sounds noted, verified with Juliette Wynn RN. Dr. Wright notified.
--- NOTE | 2023-12-08 14:44 | EXP.PCM_ITS ---
Preliminary Cause of Preliminary Cause of Preliminary Cause of : Hypoxic respiratory failure secondary to pneumonia Date of Admission: 12/02/23 Date of : 12/07/23 Principle Diagnosis 1. Septic shock secondary to pneumonia #2 acute hypoxic respiratory failure secondary to pneumonia and acute congestive heart failure with preserved ejection fraction #3 acute kidney injury on a backdrop of chronic kidney disease stage IIIa #4 type 2 diabetes #5 hyperkalemia #6 paroxysmal A-fib #7 left hydronephrosis due to obstructive uropathy from nephrolithiasis Problem List: Active and Suspected Problems (Updated 12/05/23 @ 12:[address] Prakash Sweeney MD) Hydronephrosis (Acute) Acute UTI (Acute) Sepsis (Acute) Endotracheally intubated (Acute) Acute dehydration (Acute) Acute kidney injury (Acute) Acidosis, lactic (Acute) Hyperglycemia due to diabetes mellitus (Acute) Diabetes mellitus, new onset (Acute) Chronic anticoagulation (Acute) History of atrial fibrillation (Acute) Pneumonia (Acute) Hypoxia (Acute) Respiratory failure (Acute) Hospital Course This 88-year-old white male was seen in the emergency room at [facility] with complaints of shortness of breath for 3 days. Patient stated that he had a cough with white sputum, patient called the squad and he was evaluated at his house and his pulse ox was 40% on room air. Patient was placed on a nonrebreather, he was given aerosol treatments and IV Solu-Medrol, daughter arrived and told the emergency room physician that patient had been given a prescription for outpatient antibiotics for possible pneumonia approximately 4 days prior but never got it filled. Patient was then placed on BiPAP in the emergency room, he was given IV antibiotics and IV normal saline. Chest x-ray showed bilateral effusions and right lower lobe infiltrate, patient's blood sugar was elevated at 719 and his white blood cell count was 32.1. Patient's lactic acid level was elevated at 6.4. Patient's creatinine was elevated at 3.09 and BUN was 73. On repeat evaluation in the emergency room, patient appeared to tire out and his pulse ox began to drop into the 80s. Discussions were carried out with the patient and his family and interest was made to electively intubate the patient. Patient was transferred to ICU and seen in consultation by critical care, patient remained on IV antibiotics and he required pressor support, there was felt to be a component of congestive heart failure-patient had an echocardiogram which showed normal EF. Patient was seen in consultation by nephrology and renal ultrasound revealed a left hydronephrosis which was felt to be secondary to nephrolithiasis, he was seen in consultation with urology who recommended placement of a percutaneous nephrostomy tube on the left. Conversations were carried out with the patient's daughter, she ultimately decided at first to make the patient a DNR CC arrest with no intubation, patient's status did not improve while he was in the ICU and he remained on the ventilator sedated. On 12/07/2023, extensive conversations were carried out with the patient's daughter, she elected not to have a nephrostomy tube placed and ultimately later that day wished the patient to be extubated and all care withdrawn except for comfort care. Patient's oxygenation remained poor off the ventilator and at 2035 on 12/07/2023, patient had no respirations and no heartbeat and was pronounced . Visit Charges Inpatient E&M: 64434 Disch Hosp
== END 2023-12-07 23:15 | DRG 870 ==
LOC: ED 15:18 → ICU 16:17
PROVIDERS: Family Medicine; Internal Medicine; Internal Medicine Critical Care Medicine; Nurse Practitioner Adult Health; Admitting Provider Internal Medicine; Emergency Provider Emergency Medicine; PCP Family Medicine Geriatric Medicine; Visit Provider Internal Medicine
DX: A41.59 Other Gram-negative sepsis (principal); J96.01 Acute respiratory failure with hypoxia; R65.21 Severe sepsis with septic shock; I50.31 Acute diastolic (congestive) heart failure; J15.69 Pneumonia due to other Gram-negative bacteria; J44.0 Chronic obstructive pulmonary disease with (acute) lower respiratory infection; E87.20 Acidosis, unspecified; B37.49 Other urogenital candidiasis; I13.0 Hypertensive heart and chronic kidney disease with heart failure and stage 1 through stage 4 chronic kidney disease, or unspecified chronic kidney disease; N17.9 Acute kidney failure, unspecified; J90 Pleural effusion, not elsewhere classified; N30.00 Acute cystitis without hematuria; N13.6 Pyonephrosis; E11.22 Type 2 diabetes mellitus with diabetic chronic kidney disease; N18.31 Chronic kidney disease, stage 3a; I48.0 Paroxysmal atrial fibrillation; E11.65 Type 2 diabetes mellitus with hyperglycemia; E11.51 Type 2 diabetes mellitus with diabetic peripheral angiopathy without gangrene; F32.A Depression, unspecified; E03.9 Hypothyroidism, unspecified; I25.10 Atherosclerotic heart disease of native coronary artery without angina pectoris; E78.5 Hyperlipidemia, unspecified; E87.5 Hyperkalemia; F17.210 Nicotine dependence, cigarettes, uncomplicated; Z79.01 Long term (current) use of anticoagulants; Z86.73 Personal history of transient ischemic attack (TIA), and cerebral infarction without residual deficits; Z66 Do not resuscitate
CPT/HCPCS: 31500; 31720; 36569; 36600; 71045; 76770; 80048; 80053; 80069; 81001; 82009; 82248; 82550; 82803; 82962; 83036; 83605; 83735; 83880; 84100; 84145; 84439; 84443; 84478; 84484; 85025; 85610; 85730; 87040; 87070; 87077; 87086; 87088; 87186; 87205; 87449; 87631; 87633; 87640; 93005; 93306; 93970; 94002; 94003; 94640; 94660; 97110; 97162; 97166; 97802; 97803; 99252; 99285; J7030; J7050; Q9957; A4216; C8929; G0463; J1940